=== PATIENT | female | born 1955 | race Caucasian/White ===

== ENCOUNTER 2021-08-14 10:34 | Outpatient (CLI) | payer OTHER, SELFPAY ==
--- NOTE | ~2021-08-14 | MM_ITS ---
EXAMINATION: MM screening [facility] BI w alvarez HISTORY: Screening TECHNIQUE: Craniocaudal and mediolateral oblique 3-D tomosynthesis images were obtained and synthetic 2-D images were generated. CAD analysis was submitted and interpreted. COMPARISON: No prior mammogram is available for comparison at this institution. BREAST PARENCHYMAL COMPOSITION: There are scattered areas of fibroglandular density. FINDINGS: There is no evidence of suspicious mass, calcification, or architectural distortion to sugg est malignancy in either breast. There has been no suspicious interval change. IMPRESSION: 1. No mammographic evidence of malignancy. 2. Recommend routine screening mammography in one year. BI-RADS Category 1: Negative Reviewed, dictated and finalized at location A. 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
== END 2021-08-14 10:35 | disposition home or self-care (01) ==
LOC: ANHIMG 10:36
PROVIDERS: PCP Internal Medicine; Visit Provider Internal Medicine
DX: Z12.31 Encounter for screening mammogram for malignant neoplasm of breast (principal)
CPT/HCPCS: 77063; 77067

== ENCOUNTER 2021-11-27 09:09 | Outpatient (CLI) | payer OTHER, SELFPAY ==
--- NOTE | ~2021-11-27 | US_ITS ---
EXAMINATION: US renal BI DATE: 11/27/2021 10:00 INDICATION: Chronic kidney disease, stage III TECHNIQUE: Multiple grayscale and Doppler ultrasound images of the kidneys were obtained. COMPARISON: None. FINDINGS: The right kidney measures 10.8 x 4.7 x 5.0 cm. The left kidney measures 11.0 x 4.9 x 4.8 cm . There is a 7 mm hypoechoic lesion in the left mid kidney. There also appears to be a 2.8 cm hyperec hoic area abutting the left kidney. The kidneys demonstrate normal parenchymal echogenicity. There is no hydronephrosis. The bladder is not fully distended but normal in appearance. IMPRESSION: 1. Possible left kidney masses. Recommend further evaluation by CT without and with contrast. Reviewed, dictated and finalized at location B.
== END 2021-11-27 09:10 | disposition home or self-care (01) ==
LOC: ANHIMG 09:12
PROVIDERS: PCP Internal Medicine; Visit Provider Internal Medicine Nephrology
DX: N18.32 Chronic kidney disease, stage 3b (principal)
CPT/HCPCS: 76775

== ENCOUNTER 2021-12-28 12:55 | Outpatient (CLI) | payer OTHER, SELFPAY ==
--- NOTE | ~2021-12-28 | MR_ITS ---
EXAMINATION: MR abdomen wo con DATE: 12/28/2021 13:48 INDICATION: Mass or cyst at the kidneys. TECHNIQUE: Magnetic resonance imaging (MRI) of the abdomen was performed without intravenous contrast . Sequences included coronal T2-weighted SS-FSE, coronal and axial FS 2D-FIESTA, axial STIR FSE, axi al T2-weighted SS-FSE, axial T2-weighted FS SS-FSE, axial diffusion-weighted SE, axial dual-echo T1-w eighted FSPGR, and axial and coronal T1-weighted LAVA. Postcontrast axial T1-weighted LAVA images wer e obtained in a time course. Postcontrast coronal T1-weighted LAVA images were obtained. COMPARISON: None. FINDINGS: Heart size is normal. No pericardial or pleural effusion. Liver, gallbladder, spleen, pancreas and bi lateral adrenal glands are normal. Bilateral T2 hyperintense renal cysts the largest at the lower rosaura e of the right kidney measuring 1.4 cm the largest at the lower pole of the left kidney measuring 1.5 cm. There is an additional 2.5 cm exophytic lesion at the lower pole of the left kidney comprised la rgely of T1 hyperintense and saturating macroscopic fat. This corresponds to the 2.8 cm hyperechoic r egion abutting the lower pole of the left kidney on prior ultrasound. No other suspicious renal lesio ns identified. No pathologically enlarged abdominal lymphadenopathy. Visualized portions of the bowel s are unremarkable. Mild lumbar levo scoliosis with severe spondylosis. IMPRESSION: 1. 2.5 similar exophytic macroscopic fat-containing lesion at the lower pole of the left kidney. Diff erential would include angiomyolipoma or fat necrosis such as in the setting of a prior cryoablation. Correlate with clinical/surgical history. Reviewed, dictated and finalized at location A. IMPRESSION: 1. 2.5 similar exophytic macroscopic fat-containing lesion at the lower pole of the left kidney. Differential would include angiomyolipoma or fat necrosis suc h as in the setting of a prior cryoablation. Correlate with clinical/surgical h istory.
== END 2021-12-28 12:56 | disposition home or self-care (01) ==
PROVIDERS: PCP Family Medicine; Visit Provider Internal Medicine Nephrology
DX: N28.1 Cyst of kidney, acquired (principal)
CPT/HCPCS: 74181

== ENCOUNTER 2022-01-08 07:02 | Outpatient (CLI) | payer OTHER, SELFPAY ==
--- NOTE | 2022-01-14 14:25 | WPDHOMESLEEP ---
Sleep Study - Home Unattended Date of Study: 01/08/22 Ordering Provider: Lyle Lancaster DO Interpreting Provider: Deena Rosenbaum DO Home Sleep Study Type: Apnea Link Air Height: 1.57 m Weight: 100.244 kg Body Mass Index: 40.4 Neck Circumference (inches): 17.5 [place]: 12 Reason for Sleep Study Snoring, daytime somnolence, dry mouth at night Sleep History The patient is a 66-year-old female with type 2 diabetes, hypertension, hyperlipidemia, congestive heart failure and kidney disease that had a sleep study ordered by her primary care for evaluation of sleep apnea. The patient is currently retired. The patient denies awakening from sleep short of breath. She denies awakening at night with heartburn, belching or cough. She frequently snores loud enough that others complain. She occasionally has trouble sleeping when she has a cold. She denies waking up gasping for air throughout the night. She denies having breathing problems at night observed by herself or others. She denies sweating excessively at night. She denies having heart palpitations or irregular heartbeats during the night. She occasionally falls asleep during the day. She rarely falls asleep while driving. She denies sleep paralysis, cataplexy and hypnagogic / hypnopompic hallucinations. She denies feeling afraid of going to sleep. He denies having nightmares. She occasionally remembers her dreams. She rarely has thoughts racing through her mind. She denies feeling sad, depressed or anxious. She denies having muscular tension. She denies noticing parts of her body jerk. She denies kicking during the night. He denies having crawling and aching feelings in her legs. She will occasionally get leg cramps throughout the night. She denies grinding her teeth during sleep and awakening with morning jaw pain. She denies being bothered by pain during the day but is occasionally awakened by pain from leg cramps during the night. She denies waking up feeling stiff in the morning. She denies waking up with sore achy muscles. She denies waking up with pain in the neck, spine her other joints. She goes to bed at 11:00 p.m. on both weekdays and weekends. He can fall asleep within 30 minutes. She wakes up 1-2 times throughout the night to urinate. She is able fall asleep within 5-10 minutes. She wakes up between 6 and 7:00 a.m. on both weekdays and weekends. She typically gets 8-9 hours of sleep per night. He will stay in bed for 5-10 minutes after waking up in the morning. She currently lives alone. She does not consume any caffeinated beverages within 2 hours of bedtime. She does not engage in physical exercise before bedtime. She will watch television before falling asleep. She will take naps in the afternoon or the evening and they are refreshing. She drinks 2-3 cups of coffee per day. She denies tobacco, alcohol and recreational drug use. [facility] Past Medical History Medical History CHF (congestive heart failure) Hypertension Kidney disease Type 2 diabetes mellitus Surgical History Surgical History H/O cataract extraction 08/2015 H/O section 01/20/1985 H/O section 03/18/1988 H/O: hysterectomy 08/1998 Family History Family History Father Diabetes mellitus Heart disease Mother , 04/28/2000 Breast cancer Alzheimer's dementia Social History Social History Smoking status: Never smoker Alcohol intake: current Alcohol use details: 1 glass of wine a month Substance use: never Gender identity (if verbalized by the patient): Female Sexual Orientation (if Verbalized by the Patient): Straight or Heterosexual Medications Home Medications Medication Instructions [place]
[2022-01-14 14:44] VITALS: BMI 40.4
== END 2022-01-11 12:56 | disposition home or self-care (01) ==
PROVIDERS: PCP Family Medicine; Visit Provider Family Medicine
DX: G47.33 Obstructive sleep apnea (adult) (pediatric) (principal)
CPT/HCPCS: 95806

== ENCOUNTER 2022-04-25 10:33 | Outpatient (CLI) | payer OTHER, SELFPAY ==
--- NOTE | 2022-05-20 11:24 | WPDSLEEPSTUD ---
Sleep Study Date of Study: 04/25/22 Ordering Provider: Lyle Lancaster DO Interpreting Physician: Deena Rosenbaum DO Sleep Study Type: BiPAP Titration Height: 1.57 m Weight: 100.244 kg Body Mass Index: 40.4 Neck Circumference (inches): 18 [place]: 12 Reason for Sleep Study The patient had a home sleep test on 01/08/2022 that showed an AHI of 59.3. Sleep History The patient is a 67-year-old female with type 2 diabetes, hypertension, hyperlipidemia, congestive heart failure and kidney disease that had a sleep study ordered by her primary care for evaluation of sleep apnea. ? The patient is currently retired.? The patient denies awakening from sleep short of breath.? She denies awakening at night with heartburn, belching or cough.? She frequently snores loud enough that others complain.? She occasionally has trouble sleeping when she has a cold.? She denies waking up gasping for air throughout the night.? She denies having breathing problems at night observed by herself or others.? She denies sweating excessively at night.? She denies having heart palpitations or irregular heartbeats during the night.? She occasionally falls asleep during the day.? She rarely falls asleep while driving.? She denies sleep paralysis, cataplexy and hypnagogic / hypnopompic hallucinations.? She denies feeling afraid of going to sleep.? He denies having nightmares.? She occasionally remembers her dreams.? She rarely has thoughts racing through her mind.? She denies feeling sad, depressed or anxious.? She denies having muscular tension.? She denies noticing parts of her body jerk.? She denies kicking during the night.? He denies having crawling and aching feelings in her legs.? She will occasionally get leg cramps throughout the night.? She denies grinding her teeth during sleep and awakening with morning jaw pain.? She denies being bothered by pain during the day but is occasionally awakened by pain from leg cramps during the night.? She denies waking up feeling stiff in the morning.? She denies waking up with sore achy muscles.? She denies waking up with pain in the neck, spine her other joints.? She goes to bed at 11:00 p.m. on both weekdays and weekends.? He can fall asleep within 30 minutes.? She wakes up 1-2 times throughout the night to urinate.? She is able fall asleep within 5-10 minutes.? She wakes up between 6 and 7:00 a.m. on both weekdays and weekends.? She typically gets 8-9 hours of sleep per night.? He will stay in bed for 5-10 minutes after waking up in the morning.? She currently lives alone.? She does not consume any caffeinated beverages within 2 hours of bedtime.? She does not engage in physical exercise before bedtime.? She will watch television before falling asleep.? She will take naps in the afternoon or the evening and they are refreshing.? She drinks 2-3 cups of coffee per day.? She denies tobacco, alcohol and recreational drug use. [facility] Past Medical History Medical History CHF (congestive heart failure) Hypertension Kidney disease Type 2 diabetes mellitus Surgical History Surgical History H/O cataract extraction 08/2015 H/O section 01/20/1985 H/O section 03/18/1988 H/O: hysterectomy 08/1998 Family History Family History Father Diabetes mellitus Heart disease Mother , 04/28/2000 Breast cancer Alzheimer's dementia Social History Social History Smoking status: Never smoker Alcohol intake: current Alcohol use details: 1 glass of wine a month Substance use: never Gender identity (if verbalized by the patient): Female Sexual Orientation (if Verbalized by the Patient): Straight or Heterosexual Medications Home Medications Medication Instructions Rec
[2022-05-20 22:55] VITALS: BMI 40.4
== END 2022-04-26 06:28 | disposition home or self-care (01) ==
LOC: ANHCSM 10:42
PROVIDERS: PCP Family Medicine; Visit Provider Family Medicine
DX: G47.33 Obstructive sleep apnea (adult) (pediatric) (principal)
CPT/HCPCS: 95811

== ENCOUNTER → 2022-06-27 14:06 | Outpatient (CLI) | payer OTHER, SELFPAY ==
--- NOTE | ~2022-06-27 | US_ITS ---
EXAMINATION: US venous doppler [facility] DATE: 06/27/2022 14:33 INDICATION: Bilateral lower limb edema TECHNIQUE: Powell scale images without and with compression and Doppler images of the bilateral lower e xtremity veins were obtained. COMPARISON: None FINDINGS: The right common femoral vein, profunda femoral vein, femoral vein, popliteal vein, peroneal trunk, p osterior tibial veins, and greater saphenous vein are patent. The left common femoral vein, profunda femoral vein, femoral vein, popliteal vein, peroneal trunk, po sterior tibial veins, and greater saphenous vein are patent. IMPRESSION: 1. Patent bilateral lower extremity veins. No evidence of deep venous thrombosis. Reviewed, dictated and finalized at location B. IMPRESSION: 1. Patent bilateral lower extremity veins. No evidence of deep venous thrombosi s.
== END ==
PROVIDERS: PCP Internal Medicine Nephrology; Visit Provider Internal Medicine Nephrology
DX: R60.0 Localized edema (principal); M79.605 Pain in left leg
CPT/HCPCS: 93970

== ENCOUNTER 2022-09-05 00:18 | Inpatient (IN) | payer OTHER, MEDICARE, SELFPAY ==
[2022-09-05] VITALS (15 sets, daily range): BP systolic 150–189; BP diastolic 52–143; PULSE 50–69; RESP 10–20; TEMP 35.8–37.1; O2SAT 91–100; BMI 34.5
--- NOTE | ~2022-09-05 | XR_ITS ---
AP view of the pelvis and AP and lateral views of the right hip Clinical history: Pain Findings: There is a traumatic intertrochanteric fracture of the proximal right femur, with increased varus angulation major distal fracture fragment. Probable mild comminution. Bilateral hip and SI jayde nt spaces are preserved. Soft tissues are unremarkable. Impression: Intertrochanteric fracture of the proximal right femur, as detailed above. Reviewed, dictated and finalized at location M. OFF SAWYER LOG Impression: Intertrochanteric fracture of the proximal right femur, as detailed above.
--- NOTE | ~2022-09-05 | XR_ITS ---
EXAMINATION: XR surgery orthopedic DATE: 09/05/2022 17:07 INDICATION: Fracture of proximal right femur. TECHNIQUE: 6 intraoperative fluoroscopic views of proximal right femur were obtained. I was not prese nt. Fluoroscopy exposure time was 1 minute 36 seconds. COMPARISON: CT right hip 09/05/2022 FINDINGS: There is a basicervical fracture of proximal right femur in near-anatomic alignment status post open reduction internal fixation with antegrade intramedullary cielo and 2 femoral head/neck screw s. There is mild right hip osteoarthritis. IMPRESSION: 1. Basicervical fracture of proximal right femur status post open reduction internal fixation. 2. Mild right hip osteoarthritis. Reviewed, dictated and finalized at location A. RAM TRAINER IMPRESSION: 1. Basicervical fracture of proximal right femur status post open reduction int ernal fixation. 2. Mild right hip osteoarthritis.
--- NOTE | ~2022-09-05 | CT_ITS ---
EXAMINATION: CT abdomen pelvis wo con, CT hip RT wo con DATE: 09/05/2022 09:19 INDICATION: Renal mass. Right hip fracture. TECHNIQUE: 1. Computed tomography (CT) of the abdomen and pelvis was performed without intravenous contrast. Au tomated exposure control and iterative reconstruction technique were employed. The dose-length produc t was 1398.45 mGy-cm. 2. CT of the right hip was performed without intravenous contrast. Automated exposure control and ite rative reconstruction technique were employed. The dose-length product was 396.47 mGy-cm. COMPARISON: MRI abdomen dated 12/28/2021 FINDINGS: Abdomen and pelvis: Mild dependent atelectasis in bilateral lower lobes. Heart size is normal. No pericardial or pleural effusion. Liver, gallbladder, pancreas and bilateral adrenal glands are normal. Multiple small spleni c calcifications consistent with old granulomatous disease. Again seen is mild bilateral perinephric stranding with a few small low-attenuation cysts in the left kidney the largest measuring 1.3 cm. Aga in seen is an approximately 2.8 cm exophytic mass at the lower pole of the left kidney which is of pr edominantly fat attenuation interspersed with minimal amount of soft tissue density. The margins of t he mass are difficult to distinguish from the surrounding perinephric stranding but best appreciated on the sagittal and coronal reconstructed images. Differential would include angiomyolipoma or fat ne crosis such as in the setting of a prior cryoablation. There is mild colonic diverticulosis with a si gmoid predominance. There is no adjacent inflammatory change to suggest diverticulitis. The appendix is not visualized. No pericecal inflammatory change to suggest acute appendicitis. There are surgica l clips in the pelvis and right lower quadrant of the abdomen. Small amount of gas and a Whitten cathet er in the decompressed bladder. The uterus is not identified and has likely been surgically resected. Mild lumbar levocurvature with severe lumbar and moderate lower thoracic spondylosis. There are brid ging osteophytes at multiple levels in the lower thoracic spine consistent with diffuse idiopathic sk eletal hyperostosis (DISH). There also prominent enthesophytes along the bilateral ischial tuberositi es, iliac crests and greater trochanters also likely related to DISH. Right hip: Basicervical fracture of the proximal right femur with minimal involvement of the medial margin of th e greater trochanter which does not appear to involve any of the footplates of the gluteal and pirifo rmis tendons. There is approximately 30 degree varus angulation and 1.5 cm proximal and medial displa cement. This results in medial impaction of the fracture with the medial side of the proximal fractur e margin situated in the central medullary space of the intertrochanteric femur. There is also approx imately 20 degree external rotation. There is mild comminution with a few small fracture fragments al kiah the main fracture line. Right femoral head remains normally centered in the right acetabulum wher e there is mild osteoarthritis with moderate size marginal osteophytes along the rim of the acetabulu m. IMPRESSION: 1. Displaced, angulated and rotated basicervical fracture of the proximal right femur. 2. 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 Differential would include region of fat necrosis in the setting of prior cryoablation. Correlate with surgical history. Reviewed, dictated and finalized at location A. ER TENDER
--- NOTE | 2022-09-05 00:36 | ED.LOWEXIN ---
HPI - Extremity Injury (Lower) General Chief Complaint: Extremity Injury, Lower Stated Complaint: Hip Pain Time Seen by Provider: 09/05/22 00:19 History of Present Illness HPI Narrative: 67-year-old female history of hypertension, diabetes, congestive heart failure, morbid obesity, hyperlipidemia presents to the emergency room for evaluation of right groin pain. Patient states 3 days ago while walking around in her home she felt a pulling sensation in her right groin. Patient thought that it was strained hip. Patient admits to successfully naproxen for pain relief over the past 3 days. States earlier this evening she felt a pop while walking to the bathroom. Patient states she has been nonweightbearing since hearing the pop. Related Data Home Medications Medication Instructions Recorded Confirmed aspirin 81 mg chewable tablet 81 mg PO DAILY 12/12/20 06/20/22 ferrous sulfate 325 mg (65 mg 325 mg PO DAILY 12/12/20 06/20/22 iron) tablet omega 1-smj-nyy-fish oil 1,000 mg 1 cap PO DAILY 12/17/21 06/20/22 (120 mg-180 mg) capsule (Fish Oil) Allergies Allergy/AdvReac Type Severity Reaction Status Date / Time No Known Allergies Allergy Verified 07/18/22 16:52 Review of Systems Review of Systems: CONSTITUTIONAL: Denies fever, chills, or sweats. EYES: Denies visual changes, redness, or discharge. ENT: Denies rhinorrhea, congestion, sore throat, or otalgia. CARDIOVASCULAR: Denies chest pain, palpitations, or edema. RESPIRATORY: Denies cough or dyspnea. GASTROINTESTINAL: Denies abdominal pain, nausea, vomiting, or diarrhea. GENITOURINARY: Denies dysuria or hematuria. SKIN: Denies rash or itching. MUSCULOSKELETAL: Reports right hip pain NEUROLOGIC: Denies headache, numbness, dizziness, or weakness. PSYCHIATRIC: Denies anxiety or depression. REPLACED BY [facility] Past Medical History Medical History CHF (congestive heart failure) Hypertension Kidney disease Type 2 diabetes mellitus Surgical History Surgical History H/O cataract extraction 08/2015 H/O section 01/20/1985 H/O section 03/18/1988 H/O: hysterectomy 08/1998 Family History Family History Father Diabetes mellitus Heart disease Mother , 04/28/2000 Breast cancer Alzheimer's dementia Social History Social History Smoking status: Never smoker Alcohol intake: current Alcohol use details: 1 glass of wine a month Substance use: never Lack of Transportation: No Lack of Food: Never True Current Housing: I Have Housing Concerned About Future Housing: No Difficulty Paying Gas/Electric Bills: No Difficulty Paying for Meds: No Currently Unemployed: No Education: High School Diploma/GED Difficulty w/ Childcare or Family Care: No Gender identity (if verbalized by the patient): Female Sexual Orientation (if Verbalized by the Patient): Straight or Heterosexual Exam Narrative: GENERAL: Well-appearing, well-nourished, no physical limitations, and in no acute distress. HEAD: Normocephalic, atraumatic. EYES: Conjunctivae normal, PERRLA and EOMI. NECK: Supple. No meningeal signs. No adenopathy or masses. No carotid bruits or JVD CHEST: Clear to auscultation. No respiratory distress. No wheezes rales or rhonchi. HEART: Regular rate and rhythm. No murmur heard. Normal peripheral pulses. EXTREMITIES:right hip: +TTP to inguinal area, no internal rotation or shortening, pain with IR and ER, neurovascular is intact distally. Bounding dorsalis pedis pulse SKIN: Warm, dry, no rash. No noted wounds NEURO: No focal deficits. Alert and oriented x3. MAEW. CN's II-XI intact bilaterally, normal gait PSYCH: Cooperative. Normal mood and affect. Course Course Emergency Course: 0230: Discussed case with
[2022-09-05 01:22] LABS: Basophils Absolute Auto 0.1 K/mm3 (0.0-0.1); Basophils Percent Auto 0.9 % (0.2-1.2); Eosinophils Absolute Auto 0.3 K/mm3 (0-0.3); Eosinophils Percent Auto 2.4 % (0-4.4); Hemoglobin 10.9 g/dL (12.0-15.0); Immature Granulocyte Absolute 0.07 K/mm3 (0.00-0.031); Immature Granulocyte Percent A 0.7 % (0-0.5); Lymphocytes Absolute Auto 2.11 K/mm3 (0.9-3.2); Lymphocytes Percent Auto 20.1 % (18.3-44.2); Mean Corpuscular HGB Conc 32.1 g/dl (32-36); Mean Corpuscular Hemoglobin 32.3 pg (26-34); Mean Corpuscular Volume 100.9 fl (80-100); Mean Platelet Volume 10.8 fl (7.4-10.4); Monocytes Absolute Auto 0.8 K/mm3 (0.1-0.6); Monocytes Percent Auto 7.3 % (2.6-8.5); Neutrophils Absolute Auto 7.2 K/mm3 (1.3-6.7); Neutrophils Percent Auto 68.6 % (45.5-73.1); Platelet Count Result 270 k/mm3 (150-375); Red Blood Count 3.37 M/mm3 (4.2-5.4); Red Cell Distribution Width 12.9 % (11.5-14.5); White Blood Count 10.5 K/mm3 (4.5-10.0)
[2022-09-05 01:32] LABS: Alanine Aminotransferase 27 U/L (6-35); Albumin Level 3.5 g/dL (3.5-5.1); Alkaline Phosphatase 78 U/L (38-126); Anion Gap 5 mmol/L (8-16); Aspartate Amino Transferase 27 U/L (14-36); Bilirubin,Total 0.4 mg/dL (0.2-1.3); Blood Urea Nitrogen 42 mg/dL (7-17); Calcium 8.3 mg/dL (8.4-10.2); Carbon Dioxide 21 mmol/L (22-30); Chloride 110 mmol/L (98-107); Estimated CRCL calculation 42 ml/min; Estimated Glomerular Filt Rate 37; Glucose 281 mg/dL (65-110); Potassium 4.6 mmol/L (3.4-5.0); Sodium 136 mmol/L (137-145)
[2022-09-05 01:41] LABS: Prothrombin Time 12.6 Seconds (11.1-14.7)
[2022-09-05 01:42] LABS: Partial Thromboplastin Time 28.4 SECONDS (22.3-36.8)
[2022-09-05] MEDS: HYDROmorphone HCL INJ (*CRX) 1 MG/ML SYR IV PUSH ×3 (02:39→18:49)
[2022-09-05 02:42] LABS: Add Urine Microscopic? YES; Appearance Urine Clear (Clear); Bilirubin Urine Negative (Negative); Blood Urine Trace-Intact (Negative); Color Urine Light Yellow (Yellow); Glucose Urine UA 2+ mg/dL (Negative); Ketones Urine Negative (Negative); Leukocyte Esterase Ur Negative LEU/UL (Negative); Nitrate Urine Positive (Negative); Protein Urine 3+ mg/dL (Negative); Urobilinogen Urine 0.2 mg/dL (<2.0)
[2022-09-05 02:54] LABS: Bacteria Urine 1+ /hpf; Mucus Urine Rare /lpf; RBC Urine 0-2 /hpf (0-2); Squamous Epithelial Cell Urine Rare /hpf (Few)
[2022-09-05 03:13] LABS: Influenza A QL RT-PCR Negative (Negative); Influenza B QL RT-PCR Negative (Negative); RSV RNA, RT-PCR Negative (Negative); SARS-CoV-2 RNA PCR Negative
--- NOTE | 2022-09-05 05:12 | PC.NURSE ---
This patient, Michaela Christian, was admitted to [facility] Room 311-01. Patient/family oriented to hospital policies and general routines including ID bracelet, bed and alarms, visiting hours, pain management, procedures, bathroom and other care routines, personal items, smoking policy, room service/diet, and visiting hours. Information on how to activate the Rapid Response Team has been discussed. Patient/Family are encouraged to report perceived risks to care and to ask questions if they do not understand what they are told or what they should do.
--- NOTE | 2022-09-05 06:42 | PM.CNOR ---
Assessment and Plan Assessment and plan (1) Closed intertrochanteric fracture of right hip: Qualifiers: Encounter type: initial encounter Fracture alignment: displaced Qualified Code(s): S72.141A - Displaced intertrochanteric fracture of right femur, initial encounter for closed fracture Code(s): S72.141A - Displaced intertrochanteric fracture of right femur, initial encounter for closed fracture Status: Acute Assessment and Plan: New patient evaluation for chief complaint right hip fracture. History, physical exam and radiographs reviewed with the patient. Discussed the condition, nature, etiology and course of natural history with the patient. Treatment options including surgical and nonoperative treatment were reviewed. Risks and benefits of each as well as alternatives reviewed. The patient's questions were answered. Conservative treatment ice, Pain control, mechanical DVT prophylaxis. surgical treatment reviewed. Discussed nonoperative and operative treatment options with the patient. Risks and benefits of each as well as alternatives were reviewed. All of the patient's questions were answered. The risks of surgery reviewed including but not limited to: Neurovascular damage, wound complication, infection, blood clot, pulmonary embolus, stroke, myocardial infarction, and anesthetic risks up to and including . Continued pain and possible dysfunction were explained. Specific risks of the procedure including later recurrence of deformity. No guarantees were offered. If hardware used, discussed risk of failure/ breakage and possible need for removal. If complications occur, the patient understands the need for further treatment, possible further surgery. Patient verbalizes understanding and wishes to proceed. PLAN: Right hip trochanteric nail. Plan to proceed when medically stable (2) Bacteriuria, chronic: Code(s): R82.71 - Bacteriuria Status: Acute Assessment and Plan: Patient received IV ceftriaxone History of Present Illness HPI Consult date: 09/05/22 Requesting physician: Gordon Ayon APRN Chief complaint: Hip Fracture Narrative: 67-year-old woman with injury to right hip several days ago. Pain worse yesterday when getting up from seated position. Presented to emergency room. Found to have right hip fracture. Denies prior problems with the hip. Independent ambulator. Review of Systems Constitutional: Constitutional: Denies fever(s) Eyes: Eyes: Denies blurry vision ENT: Reports Normal hearing present Cardiovascular: Cardiovascular: Denies chest pain and Denies dyspnea Respiratory: Respiratory: Denies dyspnea and Denies wheezing Gastrointestinal: Gastrointestinal: Denies abdominal pain Genitourinary: Genitourinary: Denies urinary urgency Musculoskeletal: Musculoskeletal: Reports as per HPI and Denies numbness Integumentary/Breasts: Skin/Breast: Denies changing lesions and Denies sores Neurologic: Reports Normal hearing present, Denies behavioral changes, Denies confusion, Denies numbness and Denies convulsions Psychiatric: Psychiatric: Denies behavioral changes, Denies confusion and Denies hallucinations Endocrine: Endocrine: Denies heat intolerance Hematologic/Lymphatic: Hematologic/Lymphatic: Denies easy bleeding Allergic/Immunologic: Allergic/Immunologic: Denies wheezing PMFSH Past Medical History Medical History (Updated 09/05/22 @ 06:45 by Scout Jaimes MD) Bacteriuria, chronic CHF (congestive heart failure) Closed intertrochanteric fracture of right hip Hypertension Kidney disease Type 2 diabetes mellitus Surgical History Surgical History H/O cataract extraction 08/2015 H/O section 01/20/1985 H/O section 03/18/1988 H/O: hysterectomy 08/1998 Family History Family History Father
[2022-09-05 10:25] LABS: Glucose Point of Care 228 mg/dl (65-105)
--- NOTE | 2022-09-05 10:32 | PM.IMHP ---
H&P: HPI History of Present Illness Date/Time: 09/05/22 10:32 Chief Complaint: weakness, and hip pain Narrative: Patient is 59-year-old female with a past medical history of hypertension, diabetes, heart failure who presented to the ED for evaluation of weakness and pain. 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 The next day the pain was increasing however she was still able to walk on it and was doing okay. On the she stated that she was having a lot more pain she was able to walk on it however standing up and sitting down was more of a task and challenge. She stated she was going to bed she was coming around the corner and heard a pop and could not put any weight on at that time. Patient then came to the hospital. She denies any chest pain, shortness a breath, nausea, vomiting, diarrhea, constipation, weakness, fatigue, fevers, sweats, chills, lightheadedness, dizziness, falls. Upon arrival to the ED it was noted on the hip x-ray that the patient does have a right femur fracture. Currently her pain is a 8/10. She is resting comfortably in bed. Patient is being admitted to the hospitalist service as an inpatient Review of Systems Review of Systems: All systems reviewed & are unremarkable except as noted in HPI and below PMFSH Past Medical History Medical History Bacteriuria, chronic BMI 40.0-44.9, adult CHF (congestive heart failure) Closed intertrochanteric fracture of right hip Hyperlipidemia LDL goal <100 Hypertension JAMES (obstructive sleep apnea) Type 2 diabetes mellitus Surgical History Surgical History H/O cataract extraction 08/2015 H/O section 01/20/1985 H/O section 03/18/1988 H/O: hysterectomy 08/1998 Family History Family History (Updated 09/05/22 @ 10:38 by ISAAC Harrison) Father Diabetes mellitus Heart disease Acute myocardial infarction Mother , 04/28/2000 Breast cancer Alzheimer's dementia Grandparent Cerebrovascular accident maternal grandfather Acute myocardial infarction Social History Social History Social History: patient this is her spouse Nikolai who will be her surrogate while she is here. Patient currently wishes to be a full code at this time Smoking status: Never smoker Alcohol intake: never Alcohol use details: 1 glass of wine a month Substance use: never Lack of Transportation: No Lack of Food: Never True Current Housing: I Have Housing Concerned About Future Housing: No Difficulty Paying Gas/Electric Bills: No Difficulty Paying for Meds: No Currently Unemployed: No Education: High School Diploma/GED Difficulty w/ Childcare or Family Care: No Gender identity (if verbalized by the patient): Female Sexual Orientation (if Verbalized by the Patient): Straight or Heterosexual Spiritual care concerns: No Meds Home Medications and Allergies Home Medications Medication Instructions Recorded Confirmed Type aspirin 81 mg chewable tablet 81 mg PO DAILY 12/12/20 09/05/22 History ferrous sulfate 325 mg (65 mg 325 mg PO DAILY 12/12/20 09/05/22 History iron) tablet blood sugar diagnostic #400 ea 02/28/21 09/05/22 Rx pen needle, diabetic 32 gauge x #400 ea 02/28/21 09/05/22 Rx 5/32 (BD Ultra-Fine Kaylin Pen Needle) atorvastatin 40 mg tablet 40 mg PO DAILY #90 tabs 10/22/21 09/05/22 Rx furosemide 40 mg tablet 40 mg PO QAM #90 tabs 10/22/21 09/05/22 Rx losartan 100 1 tablet PO DAILY #90 tabs 06/20/22 09/05/22 Rx mg-hydrochlorothiazide 25 mg tablet amlodipine 5 mg tablet 5 mg PO DAILY #90 tabs 06/26/22 09/05/22 Rx insulin glargine 100 unit/mL (3 55 unit subcut HS 09/05/22 09/05/22 History mL) subcutaneous pen ([place]
[2022-09-05] MEDS: FUROSEMIDE 40 MG TABLET PO (11:25)
[2022-09-05] MEDS: LOSARTAN POTASSIUM 100 MG TABLET PO (11:25)
[2022-09-05] MEDS: hydroCHLOROthiazide 25 MG TABLET PO (11:26)
[2022-09-05 12:02] LABS: Glucose Point of Care 177 mg/dl (65-105)
[2022-09-05] MEDS: ACETAMINOPHEN 500 MG TABLET 1000 MG PO (14:19)
[2022-09-05 14:39] LABS: Glucose Point of Care 167 mg/dl (65-105)
[2022-09-05] MEDS: TRANEXAMIC ACID 1,000MG/ISO100 1,000 MG/100 ML BAG 200 MG IVPB (14:40)
--- NOTE | 2022-09-05 14:59 | WPDANESEPPF ---
Anes - Initial Pre Proc Eval Procedure: Operation Date: 09/05/22 19:00 Proposed Procedures p Right Intertrochanteric Nail - Scout Jaimes MD Date/Time: 09/05/22 14:59 Surgeon: Jessy Rodney MD Pre Op Diagnosis: Hip Fracture Patient Data Age: 67 Gender: F Height: 1.7 m Weight: 100 kg Last Vital Signs Temp 36.4 C 09/05/22 05:59 Pulse 53 L 09/05/22 05:59 Resp 14 09/05/22 05:59 BP 167/62 H 09/05/22 05:59 Pulse Ox 96 09/05/22 09:53 O2 Del Method Room Air 09/05/22 09:53 Allergies Allergy/AdvReac Type Severity Reaction Status Date / Time No Known Allergies Allergy Verified 09/05/22 14:16 Home Medications Medication Instructions Recorded Confirmed Type aspirin 81 mg chewable tablet 81 mg PO DAILY 12/12/20 09/05/22 History ferrous sulfate 325 mg (65 mg 325 mg PO DAILY 12/12/20 09/05/22 History iron) tablet blood sugar diagnostic #400 ea 02/28/21 09/05/22 Rx pen needle, diabetic 32 gauge x #400 ea 02/28/21 09/05/22 Rx 5/32 (BD Ultra-Fine Kalyin Pen Needle) atorvastatin 40 mg tablet 40 mg PO DAILY #90 tabs 10/22/21 09/05/22 Rx furosemide 40 mg tablet 40 mg PO QAM #90 tabs 10/22/21 09/05/22 Rx losartan 100 1 tablet PO DAILY #90 tabs 06/20/22 09/05/22 Rx mg-hydrochlorothiazide 25 mg tablet amlodipine 5 mg tablet 5 mg PO DAILY #90 tabs 06/26/22 09/05/22 Rx insulin glargine 100 unit/mL (3 55 unit subcut HS 09/05/22 09/05/22 History mL) subcutaneous pen (Lantus Solostar U-100 Insulin) insulin lispro 100 unit/mL See Rx Instructions .Route .COMPLEX 09/05/22 09/05/22 History subcutaneous pen (Humalog KwikPen (U-100) Insulin) lisinopril 40 mg tablet 40 mg PO DAILY 09/05/22 09/05/22 History metoprolol succinate 100 mg 100 mg PO DAILY 09/05/22 09/05/22 History tablet,extended release 24 hr Laboratory Tests 09/05/22 09/05/22 09/05/22 01:16 01:16 01:16 WBC 10.5 K/mm3 H K/mm3 (4.5-10.0) RBC 3.37 M/mm3 L M/mm3 (4.2-5.4) Hgb 10.9 g/dL L g/dL (12.0-15.0) Hct 34.0 % L % (37.0-47.0) MCV 100.9 fl H fl (80-100) MCH 32.3 pg pg (26-34) MCHC 32.1 g/dl g/dl (32-36) RDW 12.9 % % (11.5-14.5) Plt Count 270 k/mm3 k/mm3 (150-375) MPV 10.8 fl H fl (7.4-10.4) Immature Gran % (Auto) 0.7 % H % (0-0.5) Neut % (Auto) 68.6 % % (45.5-73.1) Lymph % (Auto) 20.1 % % (18.3-44.2) [place] % (Auto) 7.3 % % (2.6-8.5) Eos % (Auto) 2.4 % % (0-4.4) Baso % (Auto) 0.9 % % (0.2-1.2) Lymph # (Auto) 2.11 K/mm3 K/mm3 (0.9-3.2) [place] # (Auto) 0.8 K/mm3 H K/mm3 (0.1-0.6) Eos # (Auto) 0.3 K/mm3 K/mm3 (0-0.3) Baso # (Auto) 0.1 K/mm3 K/mm3 (0.0-0.1) Abs Immat Gran (auto) 0.07 K/mm3 H K/mm3 (0.00-0.031) Absolute Neuts (auto) 7.2 K/mm3 H K/mm3 (1.3-6.7) Absolute Nucleated RBC 0.0 K/mm3 K/mm3 (0.0-0.012) Nucleated RBC % 0.0 % % (0.0-0.2) PT 12.6 Seconds Seconds (11.1-14.7) INR 1.0 APTT 28.4 SECONDS SECONDS (22.3-36.8) Sodium 136 mmol/L L mmol/L (137-145) Potassium 4.6 mmol/L mmol/L (3.4-5.0) Chloride 110 mmol/L H mmol/L (98-107) Carbon Dioxide 21 mmol/L L mmol/L (22-30) Anion Gap 5 mmol/L L mmol/L (8-16) BUN 42 mg/dL H mg/dL (7-17) Creatinine 1.40 mg/dL H mg/dL (0.7-1.0) Estim Creat Clear Calc 42 ml/min ml/min Estimated GFR 37 L (59 - ) Glucose 281 mg/dL H mg/dL (65-110) POC Capillary Glucose Calcium 8.3 mg/dL L mg/dL (8.4-10.2) Total Bilirubin 0.4 mg/dL mg/dL (0.2-1.3) AST 27 U/L U/L (14-36) ALT 27 U/L U/L (6-35) Alkaline Phosphatase 78 U/L U/L (38-126) Total Protein 6.0 g/dL L g/dL (6.3
[2022-09-05] MEDS: LACTATED RINGERS 1,000 ML 30 ML IV CONT (15:09)
--- NOTE | 2022-09-05 15:09 | WPDHPUPDATE1 ---
History and Physical Update Update Date/Time: 09/05/22 15:09 History and Physical has been reviewed, including an updated exam of the patient. There are NO changes in the patient's condition. Risks, benefits, and alternatives have been discussed and questions answered. Patient agrees to proceed with procedure.
[2022-09-05] MEDS: ceFAZolin 2 GM/D5W 50 ML 2 GM/50 ML BAG IVPB (15:46)
[2022-09-05] MEDS: BUPIVACAINE/EPINEPHRINE 0.5% 30 ML VIAL INFILTRATE (16:02)
--- NOTE | 2022-09-05 17:03 | PCRCNOTE ---
Pt. is currently in surgery, spoke with family about bringing in her home CPAP unit or borrowing one of ours. Family states Pt. doesn't wear it every night. Family states will discuss it with the Pt. and let the nurse know what they decide.
--- NOTE | 2022-09-05 17:26 | W.PM.PROC2 ---
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 Presents for operative treatment. Description of Procedure After informed consent the operative extremity was marked in the preoperative holding area. Patient received intravenous antibiotics. The patient was taken to the operative room, placed in the supine position, general anesthesia induced by the anesthesia team, and was placed on a fracture table with longitudinal traction applied to the right leg. The hip fracture was reduced to near anatomic position and verified with image intensification. A time-out was performed confirming the patient, site of the surgery and plan. The right lower extremity was prepped and draped sterilely from the knee to the iliac crest region using a ChloraPrep skin solution. Incision was made just proximal to greater trochanter down to the subcutaneous tissues. Hemostasis controlled with electrocautery. Blunt dissection through the fascia to the tip of the greater trochanter. A starter awl was placed at the tip of the greater trochanter into the medullary canal of the femur. This was checked with image intensification and was in good position. Intramedullary guide cielo positioned. A one-step hand reaming done proximally. Intramedullary canal was reamed with a 12.5 millimeter flexible reamer. Neck angle selected off of preoperative radiographs temp plating. 125 degree 11.0mm X 20cm Nail opened on the back table and assembled. This was then inserted over the guide cielo to the correct depth. Guide cielo removed. Lag screw was then placed with a stab incision over the lateral femur using a 10 blade knife. Blunt dissection down to the lateral side of the bone. Soft tissue protectors placed. Guide pin placed in the center center position of the femoral head and measured. 90 millimeter x 10.0 millimeter lag screw placed to correct depth and verified with image intensification. Traction released from the leg and compression of the fracture performed with the external compression device. Proximal locking screw placed. Distal locking of the nail then performed. Stab incision made lateral distal thigh. Blunt dissection down lateral side of the femur. Soft tissue protector placed. Femur drilled from lateral to medial through the distal nail. Distal femur measured and the appropriate size screw placed. Image intensification confirmed the placement through the locking hole. Final image intensification confirmed reduction of the fracture and placement of the hardware. Wounds then thoroughly irrigated with antibiotic solution. Fascia repaired with 0 Vicryl interrupted suture. Subcutaneous tissue repaired with 00 Vicryl interrupted suture and skin repaired with guillermo. Sterile dressings applied. Patient then awoke from anesthesia, extubated, taken to recovery room stable condition. All sponge, needle and instrument counts correct at the end the case. Implants Arthrex standard trochanteric nail 125 degree angle, 11 mm diameter by 200 mm length. 10 mm x 90 mm lag screw, 5 mm x 36 mm distal locking screw. 75 mm anti rotation screw. Estimated Blood Loss 150 Drains No Packing No Pathology None sent Complications None Condition Stable Disposition PACU
[2022-09-05 17:33] LABS: Glucose Point of Care 163 mg/dl (65-105)
[2022-09-05] MEDS: fentaNYL CITRATE INJ (*CRX) 100 MCG/2 ML VIAL 25 MCG IV PUSH ×4 (17:38→18:07)
[2022-09-05] MEDS: amLODIPine BESYLATE 5 MG TABLET PO (20:31)
[2022-09-05] MEDS: METOPROLOL SUCCINATE EXT REL 100 MG TABCR PO (20:32)
[2022-09-05] MEDS: INSULIN GLARGINE (*BKC) 100 UNITS/ML 25 UNITS SUB-Q (20:32)
[2022-09-05 21:27] LABS: Glucose Point of Care 224 mg/dl (65-105)
[2022-09-06] VITALS (9 sets, daily range): BP systolic 151–190; BP diastolic 41–60; PULSE 50–86; RESP 18; TEMP 36.1–36.4; O2SAT 96–98
[2022-09-06] MEDS: HYDROcodone/acetaminophen (*CRX) 7.5-325 MG TABLET 1 TAB PO ×3 (01:14→19:55)
[2022-09-06 06:54] LABS: Basophils Percent Auto 0.2 % (0.2-1.2); Hematocrit 33.1 % (37.0-47.0); Hemoglobin 10.6 g/dL (12.0-15.0); Immature Granulocyte Absolute 0.05 K/mm3 (0.00-0.031); Immature Granulocyte Percent A 0.4 % (0-0.5); Lymphocytes Absolute Auto 1.15 K/mm3 (0.9-3.2); Lymphocytes Percent Auto 9.6 % (18.3-44.2); Mean Corpuscular Hemoglobin 32.2 pg (26-34); Mean Corpuscular Volume 100.6 fl (80-100); Mean Platelet Volume 11.1 fl (7.4-10.4); Monocytes Absolute Auto 0.9 K/mm3 (0.1-0.6); Monocytes Percent Auto 7.3 % (2.6-8.5); Neutrophils Absolute Auto 9.9 K/mm3 (1.3-6.7); Neutrophils Percent Auto 82.5 % (45.5-73.1); Platelet Count Result 257 k/mm3 (150-375); Red Blood Count 3.29 M/mm3 (4.2-5.4); Red Cell Distribution Width 12.7 % (11.5-14.5)
[2022-09-06 07:05] LABS: Hemoglobin A1C 8.4 % (<5.7)
[2022-09-06 07:06] LABS: Alanine Aminotransferase 26 U/L (6-35); Albumin Level 3.2 g/dL (3.5-5.1); Alkaline Phosphatase 64 U/L (38-126); Anion Gap 5 mmol/L (8-16); Aspartate Amino Transferase 37 U/L (14-36); Bilirubin,Total 0.5 mg/dL (0.2-1.3); Blood Urea Nitrogen 36 mg/dL (7-17); Calcium 8.4 mg/dL (8.4-10.2); Carbon Dioxide 24 mmol/L (22-30); Chloride 107 mmol/L (98-107); Estimated CRCL calculation 44 ml/min; Estimated Glomerular Filt Rate 37; Glucose 279 mg/dL (65-110); Magnesium 1.8 mg/dL (1.6-2.3); Sodium 136 mmol/L (137-145)
[2022-09-06] MEDS: SENNA/DOCUSATE SODIUM TABLET 2 TAB PO ×2 (08:19→17:03)
[2022-09-06] MEDS: FERROUS SULFATE 324 MG TABLET PO (08:19)
[2022-09-06] MEDS: ATORVASTATIN 40 MG TABLET PO (08:20)
[2022-09-06] MEDS: LOSARTAN POTASSIUM 100 MG TABLET PO (08:20)
[2022-09-06] MEDS: FUROSEMIDE 40 MG TABLET PO (08:20)
[2022-09-06] MEDS: FONDAPARINUX SODIUM 2.5 MG/0.5 ML SYRINGE SUB-Q (08:20)
[2022-09-06] MEDS: ASPIRIN 81 MG CHEWABLE TABLET PO (08:20)
[2022-09-06] MEDS: hydroCHLOROthiazide 25 MG TABLET PO (08:20)
[2022-09-06] MEDS: INSULIN ASPART (*BKC) 100 UNITS/ML SUB-Q ×3 (08:27→17:05)
--- NOTE | 2022-09-06 08:38 | PM.PNORT ---
Progress Note: A&P Assessment and Plan (1) Closed intertrochanteric fracture of right hip: Qualifiers: Encounter type: subsequent encounter Fracture alignment: displaced Fracture healing: with routine healing Qualified Code(s): S72.141D - Displaced intertrochanteric fracture of right femur, subsequent encounter for closed fracture with routine healing Code(s): S72.141A - Displaced intertrochanteric fracture of right femur, initial encounter for closed fracture Status: Acute Assessment and Plan: Postoperative day 1 right hip trochanteric nail. Patient awake and alert, appears stable. PT/OT with weight-bearing as tolerated. Wound care regimen. Pain control. DVT prophylaxis with Arixtra. May transition to aspirin at discharge. Patient would like to disposition home when stable. Recommend home health. Subjective Subjective Date/Time Seen: 09/06/22 08:38 Post Op day: 1 Principal diagnosis: Right hip fracture Interval history: Patient resting comfortably. Awake and alert. Less confused today. Oriented to person, place and time. Complains of minimal pain right hip. Exam Const: General: comfortable; No acute distress Resp: Effort & Inspection: normal respiratory effort and no audible wheezes Extrem: Right lower extremity: lower leg ( Negative Homans sign), ankle Details: normal ROM ( dorsiflexion and plantar flexion intact) and foot Details: vascular exam Details: dorsalis pedis pulse present and normal capillary refill, tendon exam Details: active flexion normal and active extension normal and motor-sensory exam Details: light-touch normal Location: in all toes; no edema Left lower extremity: normal to inspection, ankle Details: normal ROM and foot Details: vascular exam Details: dorsalis pedis pulse present and normal capillary refill and motor-sensory exam light-touch normal in all toes; no edema Other: right hip dressing clean dry and intact. Muscles soft. Objective Data Vital Signs Vital Signs: Vital Signs - 24 hr 09/05/22 09:53 09/05/22 14:10 09/05/22 17:13 Temperature 97.5 F L 98.7 F Pulse Rate 50 L 67 Respiratory Rate 18 10 L Blood Pressure 189/52 H 151/62 H Pulse Oximetry 96 98 100 Oxygen Delivery Room Air Room Air Simple Face Mask Oxygen Flow Rate 10 09/05/22 17:25 09/05/22 17:40 09/05/22 17:55 Temperature Pulse Rate 66 67 66 Respiratory Rate 14 12 12 Blood Pressure 185/60 H 178/53 H 165/54 H Pulse Oximetry 100 100 99 Oxygen Delivery Simple Face Mask Simple Face Mask Room Air Oxygen Flow Rate 10 10 09/05/22 18:10 09/05/22 18:23 09/05/22 18:35 Temperature 96.5 F L Pulse Rate 66 57 L 69 Respiratory Rate 12 14 18 Blood Pressure 172/66 H 168/53 H 161/54 H Pulse Oximetry 91 100 99 Oxygen Delivery Room Air Nasal Cannula Oxygen Flow Rate 2 09/05/22 18:50 09/05/22 18:35 09/05/22 20:10 Temperature 98.4 F 97.5 F L Pulse Rate 58 L 65 Respiratory Rate 16 20 Blood Pressure 150/58 H 154/56 H Pulse Oximetry 93 99 97 Oxygen Delivery Nasal Cannula Oxygen Flow Rate 2 09/05/22 20:00 09/06/22 00:01 09/06/22 04:10 Temperature 97.6 F 97.1 F L Pulse Rate 86 78 Respiratory Rate 18 18 Blood Pressure 156/56 H 166/60 H Pulse Oximetry 95 98 98 Oxygen Delivery Nasal Cannula Oxygen Flow Rate 2 09/05/22 21:48 Temperature Pulse Rate Respiratory Rate Blood Pressure Pulse Oximetry 97 Oxygen Delivery Nasal Cannula Oxygen Flow Rate 2 Intake/Output Intake/Output: Intake & Output 09/03/22 09/04/22 09/05/22 09/06/22 23:59 23:59 23:59 23:59 Intake Total 620 450 Output Total 1980 825 Balance -0823 -128 Meds/Results Medications: Active Medications Generic Name Dose Route Start Last Admin Trade Name Jerrica PRN Reason Stop Dose Admin Acetaminophen 650 mg 09/05/22 18:25 Acetaminophen 325 Mg Tablet PO Q6H PRN Mild Pain (1-3) or Fever Hydrocodone Bitart/Acetaminophen 1 tab 09/05/22 18:
[2022-09-06 08:46] LABS: Glucose Point of Care 264 mg/dl (65-105)
--- NOTE | 2022-09-06 09:45 | P.PNIM_ITS ---
Progress Note: A&P Assessment and Plan (1) Closed intertrochanteric fracture of right hip: Qualifiers: Encounter type: initial encounter Fracture alignment: displaced Qualified Code(s): S72.141A - Displaced intertrochanteric fracture of right femur, initial encounter for closed fracture Code(s): S72.141A - Displaced intertrochanteric fracture of right femur, initial encounter for closed fracture Status: Acute Assessment and Plan: * POD 1 * unknown etiology * x-ray and CT both show right by cervical fracture of the femur * orthopedics consulted * surgical repair 09/05/22 * pain medications on board * DVT prophylaxis Arixtra, can transition to aspirin at discharge * PT and OT when appropriate (2) Type 2 diabetes mellitus: Qualifiers: Diabetes mellitus complication status: without complication Diabetes mellitus computer terminal operator insulin use: with computer terminal operator use Qualified Code(s): E11.9 - Type 2 diabetes mellitus without complications; Z79.4 - residential (current) use of insulin Code(s): E11.9 - Type 2 diabetes mellitus without complications Status: Acute Assessment and Plan: * current glucose 279 * continue home Lantus 25 units while she is NPO * insulin sliding scale * A1c in the a.m. * trend glucose * hypoglycemia protocol * Accu-Cheks AC and HS * adjust therapy as indicated (3) Chronic kidney disease, stage 3b: Code(s): N18.32 - Chronic kidney disease, stage 3b Status: Acute Assessment and Plan: * current BUN and creatinine 36/1.40 * baseline appears to be 1.4-1.6 * avoid nephrotoxic medications * seems to be within baseline * continue to trend labs * trend urine output * adjust therapy as indicated (4) CHF (congestive heart failure): Qualifiers: Heart failure chronicity: chronic Heart failure type: unspecified Qualified Code(s): I50.9 - Heart failure, unspecified Code(s): I50.9 - Heart failure, unspecified Status: Acute Assessment and Plan: * chronic diastolic heart failure not in acute exacerbation * echo from 2020 shows an EF 70 75% with grade 2 diastolic dysfunction * trend urine output * daily weights * continue home furosemide 40 mg daily * continue home metoprolol 100 mg daily * stable at this time (5) Hypertension: Qualifiers: Hypertension type: essential hypertension Qualified Code(s): I10 - Essential (primary) hypertension Code(s): I10 - Essential (primary) hypertension Status: Acute Assessment and Plan: * current blood pressure 166/60 * continue home amlodipine, losartan, HCTZ * trend blood pressure * adjust therapy as indicated (6) Morbid (severe) obesity due to excess calories: Code(s): E66.01 - Morbid (severe) obesity due to excess calories Status: Acute Assessment and Plan: * BMI is 34.5 * lifestyle modifications and education * dietitian consult when appropriate Time Spent With Patient Time with patient: Greater than 35 minutes Subjective Date/time seen: 09/06/22944 Interval history: 09/06/22944 Patient was sitting in the chair. Patient stated that she feels okay right now. She denies any chest pain, shortness a breath, nausea, vomiting, diarrhea, constipation, weakness or
--- NOTE | 2022-09-06 09:45 | PM.IMPN ---
Progress Note: A&P Assessment and Plan (1) Closed intertrochanteric fracture of right hip: Qualifiers: Encounter type: initial encounter Fracture alignment: displaced Qualified Code(s): S72.141A - Displaced intertrochanteric fracture of right femur, initial encounter for closed fracture Code(s): S72.141A - Displaced intertrochanteric fracture of right femur, initial encounter for closed fracture Status: Acute Assessment and Plan: POD 1 unknown etiology x-ray and CT both show right by cervical fracture of the femur orthopedics consulted surgical repair 09/05/22 pain medications on board DVT prophylaxis Arixtra, can transition to aspirin at discharge PT and OT when appropriate (2) Type 2 diabetes mellitus: Qualifiers: Diabetes mellitus complication status: without complication Diabetes mellitus lobsterman insulin use: with lobsterman use Qualified Code(s): E11.9 - Type 2 diabetes mellitus without complications; Z79.4 - vermin exterminator (current) use of insulin Code(s): E11.9 - Type 2 diabetes mellitus without complications Status: Acute Assessment and Plan: current glucose 279 continue home Lantus 25 units while she is NPO insulin sliding scale A1c in the a.m. trend glucose hypoglycemia protocol Accu-Cheks AC and HS adjust therapy as indicated (3) Chronic kidney disease, stage 3b: Code(s): N18.32 - Chronic kidney disease, stage 3b Status: Acute Assessment and Plan: current BUN and creatinine 36/1.40 baseline appears to be 1.4-1.6 avoid nephrotoxic medications seems to be within baseline continue to trend labs trend urine output adjust therapy as indicated (4) CHF (congestive heart failure): Qualifiers: Heart failure chronicity: chronic Heart failure type: unspecified Qualified Code(s): I50.9 - Heart failure, unspecified Code(s): I50.9 - Heart failure, unspecified Status: Acute Assessment and Plan: chronic diastolic heart failure not in acute exacerbation echo from 2020 shows an EF 70 75% with grade 2 diastolic dysfunction trend urine output daily weights continue home furosemide 40 mg daily continue home metoprolol 100 mg daily stable at this time (5) Hypertension: Qualifiers: Hypertension type: essential hypertension Qualified Code(s): I10 - Essential (primary) hypertension Code(s): I10 - Essential (primary) hypertension Status: Acute Assessment and Plan: current blood pressure 166/60 continue home amlodipine, losartan, HCTZ trend blood pressure adjust therapy as indicated (6) Morbid (severe) obesity due to excess calories: Code(s): E66.01 - Morbid (severe) obesity due to excess calories Status: Acute Assessment and Plan: BMI is 34.5 lifestyle modifications and education dietitian consult when appropriate Time Spent With Patient Time with patient: Greater than 35 minutes Subjective Date/time seen: 09/06/22944 Interval history: 09/06/22944 Patient was sitting in the chair. Patient stated that she feels okay right now. She denies any chest pain, shortness a breath, nausea, vomiting, diarrhea, constipation, weakness or fatigue. Did talk to her about her blood pressure medicines and did state that she was just started on losartan. talked her about stopping lisinopril for now while on the losartan. Patient seems to be stable at this time and is doing well with therapy. 09/05/22? 10:32 Patient is 59-year-old female with a past medical history of hypertension, diabetes, heart failure who presented to the ED for evaluation of weakness and pain.? 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 The next da
--- NOTE | 2022-09-06 11:08 | WPDANESPN ---
Anes - Prog Note Post-Op Date/Time: 09/06/22 11:08 Cardiovascular status: normal Respiratory status: normal Airway patency: baseline Mental status: baseline Post-Op hydration status: normal Vital Signs: Last Vital Signs Temp 36.1 C L 09/06/22 08:10 Pulse 52 L 09/06/22 08:10 Resp 18 09/06/22 08:10 BP 176/58 H 09/06/22 08:10 Pulse Ox 98 09/06/22 08:20 O2 Del Method Room Air 09/06/22 08:20 O2 Flow Rate 2 09/05/22 21:48 Pain Score (VAS): 11/15 I/O: Intake & Output 09/05/22 09/06/22 09/06/22 23:59 07:59 15:59 Intake Total 420 450 290 Output Total 530 825 Balance -110 -375 290 Laboratory Tests 09/06/22 06:16 09/06/22 06:16 09/05/22 09/05/22 09/05/22 11:53 14:37 17:30 WBC RBC Hgb Hct MCV MCH MCHC RDW Plt Count MPV Immature Gran % (Auto) Neut % (Auto) Lymph % (Auto) Letcher % (Auto) Eos % (Auto) Baso % (Auto) Lymph # (Auto) [place]cher # (Auto) Eos # (Auto) Baso # (Auto) Abs Immat Gran (auto) Absolute Neuts (auto) Absolute Nucleated RBC Nucleated RBC % Sodium Potassium Chloride Carbon Dioxide Anion Gap BUN Creatinine Estim Creat Clear Calc Estimated GFR Glucose POC Capillary Glucose 177 H 167 H 163 H Hemoglobin A1c Calcium Magnesium Total Bilirubin AST ALT Alkaline Phosphatase Total Protein Albumin 09/05/22 09/06/22 09/06/22 20:39 06:16 06:16 WBC 12.0 H RBC 3.29 L Hgb 10.6 L Hct 33.1 L MCV 100.6 H MCH 32.2 MCHC 32.0 RDW 12.7 Plt Count 257 MPV 11.1 H Immature Gran % (Auto) 0.4 Neut % (Auto) 82.5 H Lymph % (Auto) 9.6 L Letcher % (Auto) 7.3 Eos % (Auto) 0.0 Baso % (Auto) 0.2 Lymph # (Auto) 1.15 Letcher # (Auto) 0.9 H Eos # (Auto) 0.0 Baso # (Auto) 0.0 Abs Immat Gran (auto) 0.05 H Absolute Neuts (auto) 9.9 H Absolute Nucleated RBC 0.0 Nucleated RBC % 0.0 Sodium Potassium Chloride Carbon Dioxide Anion Gap BUN Creatinine Estim Creat Clear Calc Estimated GFR Glucose POC Capillary Glucose 224 H Hemoglobin A1c 8.4 H Calcium Magnesium Total Bilirubin AST ALT Alkaline Phosphatase Total Protein Albumin 09/06/22 09/06/22 06:16 08:03 WBC RBC Hgb Hct MCV MCH MCHC RDW Plt Count MPV Immature Gran % (Auto) Neut % (Auto) Lymph % (Auto) Letcher % (Auto) Eos % (Auto) Baso % (Auto) Lymph # (Auto) Letcher # (Auto) Eos # (Auto) Baso # (Auto) Abs Immat Gran (auto) Absolute Neuts (auto) Absolute Nucleated RBC Nucleated RBC % Sodium 136 L Potassium 5.0 Chloride 107 Carbon Dioxide 24 Anion Gap 5 L BUN 36 H Creatinine 1.40 H Estim Creat Clear Calc 44 Estimated GFR 37 L Glucose 279 H POC Capillary Glucose 264 H Hemoglobin A1c Calcium 8.4 Magnesium 1.8 Total Bilirubin 0.5 AST 37 H ALT 26 Alkaline Phosphatase 64 Total Protein 6.0 L Albumin 3.2 L Post-procedural complaints: none Patient Feedback: Patient satisfied with anesthetic care.
[2022-09-06 11:58] LABS: Glucose Point of Care 284 mg/dl (65-105)
[2022-09-06 16:44] LABS: Glucose Point of Care 303 mg/dl (65-105)
[2022-09-06] MEDS: amLODIPine BESYLATE 5 MG TABLET 10 MG PO (17:03)
[2022-09-06] MEDS: METOPROLOL SUCCINATE EXT REL 100 MG TABCR PO (17:06)
[2022-09-06] MEDS: INSULIN GLARGINE (*BKC) 100 UNITS/ML 55 UNITS SUB-Q (20:45)
[2022-09-06 21:16] LABS: Glucose Point of Care 340 mg/dl (65-105)
[2022-09-06] MEDS: hydrALAZINE HCL 20 MG/ML VIAL 10 MG IV PUSH (22:28)
[2022-09-07 05:43] VITALS: BP 189/50; PULSE 71; RESP 20; TEMP 36.3; O2SAT 96
[2022-09-07 07:55] LABS: Basophils Absolute Auto 0.1 K/mm3 (0.0-0.1); Basophils Percent Auto 0.7 % (0.2-1.2); Eosinophils Absolute Auto 0.2 K/mm3 (0-0.3); Eosinophils Percent Auto 1.5 % (0-4.4); Hematocrit 32.7 % (37.0-47.0); Hemoglobin 10.6 g/dL (12.0-15.0); Immature Granulocyte Absolute 0.08 K/mm3 (0.00-0.031); Immature Granulocyte Percent A 0.7 % (0-0.5); Lymphocytes Absolute Auto 1.96 K/mm3 (0.9-3.2); Lymphocytes Percent Auto 15.9 % (18.3-44.2); Mean Corpuscular HGB Conc 32.4 g/dl (32-36); Mean Corpuscular Hemoglobin 32.5 pg (26-34); Mean Corpuscular Volume 100.3 fl (80-100); Mean Platelet Volume 10.7 fl (7.4-10.4); Monocytes Absolute Auto 1.2 K/mm3 (0.1-0.6); Monocytes Percent Auto 9.6 % (2.6-8.5); Neutrophils Absolute Auto 8.8 K/mm3 (1.3-6.7); Neutrophils Percent Auto 71.6 % (45.5-73.1); Platelet Count Result 240 k/mm3 (150-375); Red Blood Count 3.26 M/mm3 (4.2-5.4); Red Cell Distribution Width 12.6 % (11.5-14.5); White Blood Count 12.3 K/mm3 (4.5-10.0)
[2022-09-07 08:01] LABS: Alanine Aminotransferase 19 U/L (6-35); Albumin Level 3.3 g/dL (3.5-5.1); Alkaline Phosphatase 71 U/L (38-126); Anion Gap 3 mmol/L (8-16); Aspartate Amino Transferase 35 U/L (14-36); Bilirubin,Total 0.5 mg/dL (0.2-1.3); Blood Urea Nitrogen 41 mg/dL (7-17); Calcium 8.6 mg/dL (8.4-10.2); Carbon Dioxide 27 mmol/L (22-30); Chloride 103 mmol/L (98-107); Estimated CRCL calculation 41 ml/min; Estimated Glomerular Filt Rate 32; Glucose 220 mg/dL (65-110); Potassium 4.5 mmol/L (3.4-5.0); Sodium 133 mmol/L (137-145)
[2022-09-07 08:27] LABS: Glucose Point of Care 236 mg/dl (65-105)
[2022-09-07] MEDS: FUROSEMIDE 40 MG TABLET PO (09:08)
[2022-09-07] MEDS: ASPIRIN 81 MG CHEWABLE TABLET PO (09:08)
[2022-09-07] MEDS: ATORVASTATIN 40 MG TABLET PO (09:09)
[2022-09-07] MEDS: FERROUS SULFATE 324 MG TABLET PO (09:10)
[2022-09-07] MEDS: hydroCHLOROthiazide 25 MG TABLET PO (09:10)
[2022-09-07] MEDS: LOSARTAN POTASSIUM 100 MG TABLET PO (09:10)
[2022-09-07] MEDS: INSULIN ASPART (*BKC) 100 UNITS/ML SUB-Q ×2 (09:11→12:42)
[2022-09-07] MEDS: ACETAMINOPHEN 325 MG TABLET 650 MG PO (09:13)
[2022-09-07] MEDS: EMPAGLIFLOZIN 25 MG TABLET PO (09:13)
[2022-09-07] MEDS: SENNA/DOCUSATE SODIUM TABLET 2 TAB PO (09:14)
[2022-09-07] MEDS: polyethylene glycoL 3350 17 GM POWD.PACK PO (09:15)
[2022-09-07] MEDS: FONDAPARINUX SODIUM 2.5 MG/0.5 ML SYRINGE SUB-Q (09:15)
--- NOTE | 2022-09-07 09:15 | PM.DS ---
DS: Admitting Diagnosis Discharge Date 09/07/22 0915 Admitting Diagnosis Acute right femur fracture DS: Discharge Diagnosis Discharge Diagnosis (1) Closed intertrochanteric fracture of right hip: Qualifiers: Encounter type: subsequent encounter Fracture alignment: displaced Fracture healing: with routine healing Qualified Code(s): S72.141D - Displaced intertrochanteric fracture of right femur, subsequent encounter for closed fracture with routine healing Code(s): S72.141A - Displaced intertrochanteric fracture of right femur, initial encounter for closed fracture Status: Acute Assessment and Plan: POD 2 unknown etiology x-ray and CT both show right by cervical fracture of the femur orthopedics consulted surgical repair 09/05/22 pain medications on board DVT prophylaxis Arixtra, can transition to aspirin at discharge PT and OT when appropriate (2) Type 2 diabetes mellitus: Qualifiers: Diabetes mellitus complication status: without complication 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 trend glucose hypoglycemia protocol Accu-Cheks AC and HS adjust therapy as indicated (3) Chronic kidney disease, stage 3b: Code(s): N18.32 - Chronic kidney disease, stage 3b Status: Acute Assessment and Plan: current BUN and creatinine 41/1.60 baseline appears to be 1.4-1.6 avoid nephrotoxic medications seems to be within baseline continue to trend labs trend urine output adjust therapy as indicated (4) CHF (congestive heart failure): Qualifiers: Heart failure chronicity: chronic Heart failure type: unspecified Qualified Code(s): I50.9 - Heart failure, unspecified Code(s): I50.9 - Heart failure, unspecified Status: Acute Assessment and Plan: chronic diastolic heart failure not in acute exacerbation echo from 2020 shows an EF 70-75% with grade 2 diastolic dysfunction trend urine output daily weights continue home furosemide 40 mg daily continue home metoprolol 100 mg daily stable at this time (5) Hypertension: Qualifiers: Hypertension type: essential hypertension Qualified Code(s): I10 - Essential (primary) hypertension Code(s): I10 - Essential (primary) hypertension Status: Acute Assessment and Plan: current blood pressure 166/60 continue home amlodipine, losartan, HCTZ trend blood pressure adjust therapy as indicated (6) Morbid (severe) obesity due to excess calories: Code(s): E66.01 - Morbid (severe) obesity due to excess calories Status: Acute Assessment and Plan: BMI is 34.5 lifestyle modifications and education dietitian consult when appropriate DS: Summary Hospital Course Hospital Course: patient is 59-year-old female with a past medical history of hyperlipidemia, iron deficiency anemia, hypertension, diabetes mellitus, CHF who presented to the ED with complaints of weakness and pain on the right hip. Upon arrival x-rays and CTs were performed and showed a cervical fracture of the right femur. Orthopedics was consulted and patient was taken for surgical repair on 09/05/2022. Pain has been controlled with pain medications and currently patient rates her pain a 5/10 with activity. Glucose has been slightly elevated in the 200s but has been consistent. Blood pressure has been slightly elevated however held patient's lisinopril since she is on losartan as well. Educated
--- NOTE | 2022-09-07 09:15 | P.DS_ITS ---
DS: Admitting Diagnosis Discharge Date 09/07/22 0915 Admitting Diagnosis Acute right femur fracture DS: Discharge Diagnosis Discharge Diagnosis (1) Closed intertrochanteric fracture of right hip: Qualifiers: Encounter type: subsequent encounter Fracture alignment: displaced Fracture healing: with routine healing Qualified Code(s): S72.141D - Displaced intertrochanteric fracture of right femur, subsequent encounter for closed fracture with routine healing Code(s): S72.141A - Displaced intertrochanteric fracture of right femur, initial encounter for closed fracture Status: Acute Assessment and Plan: * POD 2 * unknown etiology * x-ray and CT both show right by cervical fracture of the femur * orthopedics consulted * surgical repair 09/05/22 * pain medications on board * DVT prophylaxis Arixtra, can transition to aspirin at discharge * PT and OT when appropriate (2) Type 2 diabetes mellitus: Qualifiers: Diabetes mellitus complication status: without complication 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 * trend glucose * hypoglycemia protocol * Accu-Cheks AC and HS * adjust therapy as indicated (3) Chronic kidney disease, stage 3b: Code(s): N18.32 - Chronic kidney disease, stage 3b Status: Acute Assessment and Plan: * current BUN and creatinine 41/1.60 * baseline appears to be 1.4-1.6 * avoid nephrotoxic medications * seems to be within baseline * continue to trend labs * trend urine output * adjust therapy as indicated (4) CHF (congestive heart failure): Qualifiers: Heart failure chronicity: chronic Heart failure type: unspecified Qualified Code(s): I50.9 - Heart failure, unspecified Code(s): I50.9 - Heart failure, unspecified Status: Acute Assessment and Plan: * chronic diastolic heart failure not in acute exacerbation * echo from 2020 shows an EF 70-75% with grade 2 diastolic dysfunction * trend urine output * daily weights * continue home furosemide 40 mg daily * continue home metoprolol 100 mg daily * stable at this time (5) Hypertension: Qualifiers: Hypertension type: essential hypertension Qualified Code(s): I10 - Essential (primary) hypertension Code(s): I10 - Essential (primary) hypertension Status: Acute Assessment and Plan: * current blood pressure 166/60 * continue home amlodipine, losartan, HCTZ * trend blood pressure * adjust therapy as indicated (6) Morbid (severe) obesity due to excess calories: Code(s): E66.01 - Morbid (severe) obesity due to excess calories Status: Acute Assessment and Plan: * BMI is 34.5 * lifestyle modifications and education * dietitian consult when appropriate DS: Summary Hospital Course Hospital Course: patient is 59-year-old female with a past medical history of hyperlipidemia, iron deficiency anemia, hy
[2022-09-07 10:00] VITALS: BP 164/52
[2022-09-07 11:48] LABS: Glucose Point of Care 212 mg/dl (65-105)
== END 2022-09-07 14:00 | disposition home health service (06) | DRG 481 ==
LOC: ANHED 02:30 → ANH3MEDSUR 03:51
PROVIDERS: Orthopaedic Surgery; Admitting Provider Internal Medicine; Emergency Provider Nurse Practitioner Family; PCP Family Medicine; Visit Provider Nurse Practitioner
PROC: 0QS604Z Reposition Right Upper Femur with Internal Fixation Device, Open Approach (ICD-10-PCS; CPT 27245; principal; 2022-09-05 19:00)
DX: S72.141A Displaced intertrochanteric fracture of right femur, initial encounter for closed fracture (principal); I13.0 Hypertensive heart and chronic kidney disease with heart failure and stage 1 through stage 4 chronic kidney disease, or unspecified chronic kidney disease; I50.32 Chronic diastolic (congestive) heart failure; Z79.4 Long term (current) use of insulin; N18.32 Chronic kidney disease, stage 3b; E11.22 Type 2 diabetes mellitus with diabetic chronic kidney disease; E66.01 Morbid (severe) obesity due to excess calories; Z68.34 Body mass index [BMI] 34.0-34.9, adult; D50.9 Iron deficiency anemia, unspecified; E78.5 Hyperlipidemia, unspecified; G47.33 Obstructive sleep apnea (adult) (pediatric); Z20.822 Contact with and (suspected) exposure to COVID-19; Z79.82 Long term (current) use of aspirin; Z79.899 Other long term (current) drug therapy; Z82.49 Family history of ischemic heart disease and other diseases of the circulatory system; Z83.3 Family history of diabetes mellitus
CPT/HCPCS: 36415; 73502; 73700; 74176; 80053; 81001; 82948; 83036; 83735; 85025; 85610; 85730; 87077; 87086; 87186; 87637; 96365; 96375; 97110; 97116; 97161; 97165; 97530; 97535; 99199; 99285; A9270; C1713; G0378; J0360; J0690; J0696; J1100; J1170; J1652; J1815; J2405; J2704; J3010; J7120

== ENCOUNTER 2022-11-13 08:45 | Outpatient (CLI) | payer OTHER, SELFPAY ==
--- NOTE | ~2022-11-13 | DEXA_ITS ---
Bone Density Report Name: DENNY ROBERTSON Age: 67 Sex: Female Ethnicity: White Date of : 1955 Indication: postmenopausal; screening for osteoporosis; height loss; prior fracture; hysterectomy; Referring Provider: ANNI CAR Study: Bone densitometry was performed. Exam Date: November 13, 2022 Accession number: [id number] Bone Density: Region BMD T-score Z-score Classification AP Spine(L1-L4) 1.529 4.4 6.4 Normal Femoral Neck (Left) 0.764 -0.8 0.9 Normal Total Hip (Left) 1.097 1.3 2.7 Normal World Health Organization criteria for BMD impression classify patients as: Normal (T-score at or above -1.0), Osteopenia (T-score between -1.0 and -2.5), or Osteoporosis (T-score at or below -2.5). 10-year Fracture Risk: FRAX not reported because: All T-scores for Spine Total, Hip Total, Femoral Neck at or above -1.0 Prior hip or vertebral fracture Clinical Information Provided by Patient: Have had a previous hip or vertebral fracture Has had a low trauma fracture Has used the following medications: Vitamin D, Calcium Has the following medical conditions: Hysterectomy Patient maximum height was 65 Menopause Age: 43 No regular weight bearing exercise Does not regularly consume dairy products Drinks caffeinated beverages Onset of menses at age 9 Number of children 2 Impression: The patient has normal bone mass. The patient has risk factors, including: previous fracture. Discussion: INCREASED RISK OF FRACTURE DUE TO HISTORY OF FRACTURE. The patient's previous fracture puts the patient at high risk of a future fracture. In untreated patients, the risk of osteoporotic fracture increases approximately two-fold for each 1.0 SD decrease in T-score. Low bone density is not the only risk factor for fracture; also consider factors such as patient's age, frailty or poor health, risk of falling, risk of injury, previous osteoporotic fracture, family history of osteoporosis, cigarette smoking, low body weight, etc. Not everyone with a low trauma fracture has osteoporosis; osteomalacia and other metabolic bone disorders should also be considered. Patients who have osteoporosis should be evaluated for specific diseases and conditions (secondary causes) that may cause or contribute to bone loss and fracture risk. National Osteoporosis Foundation (NOF) recommends pharmacologic intervention for patients with a prior hip or vertebral fracture regardless of BMD T-score. The patient should follow a healthful lifestyle (good nutrition with adequate calcium and vitamin D, and appropriate weight-bearing exercise). Follow-Up: Consider a repeat BMD and Vertebral Fracture Assessment (VFA) exam in 2 years or sooner if medically necessary, to reassess this patient's status. Reported by: DO on 11/13/2022 9:10:00 AM.
== END 2022-11-13 08:46 | disposition home or self-care (01) ==
PROVIDERS: PCP Family Medicine; Visit Provider Family Medicine
DX: Z13.820 Encounter for screening for osteoporosis (principal); Z78.0 Asymptomatic menopausal state
CPT/HCPCS: 77080

== ENCOUNTER 2022-12-26 08:14 | Outpatient (CLI) | payer OTHER, SELFPAY ==
--- NOTE | ~2022-12-26 | MM_ITS ---
EXAMINATION: MM screening [facility] BI w alvarez HISTORY: Screening mammogram, family history of breast cancer in her mother. TECHNIQUE: Craniocaudal and mediolateral oblique 3-D tomosynthesis images were obtained and synthetic 2-D images were generated. CAD analysis was submitted and interpreted. COMPARISON: 08/14/2021 BREAST PARENCHYMAL COMPOSITION:The breasts are almost entirely fatty FINDINGS: Scattered bilateral benign calcifications are present. No suspicious mass, calcification, o r architectural distortion are identified in either breast to suggest malignancy. There has been no s uspicious interval change. IMPRESSION: No mammographic evidence of malignancy. Recommend routine screening mammography in one year. BI-RADS Category 2: Benign finding(s). Reviewed, dictated and finalized at location M.
== END 2022-12-26 08:15 | disposition home or self-care (01) ==
PROVIDERS: PCP Family Medicine; Visit Provider Family Medicine
DX: Z12.31 Encounter for screening mammogram for malignant neoplasm of breast (principal)
CPT/HCPCS: 77063; 77067

== ENCOUNTER 2023-01-29 15:26 | Outpatient (CLI) | payer OTHER, SELFPAY ==
[2023-01-29 16:13] LABS: Basophils Percent Auto 0.4 % (0.2-1.2); Eosinophils Absolute Auto 0.1 K/mm3 (0-0.3); Eosinophils Percent Auto 0.9 % (0-4.4); Hematocrit 35.4 % (37.0-47.0); Hemoglobin 11.7 g/dL (12.0-15.0); Immature Granulocyte Absolute 0.04 K/mm3 (0.00-0.031); Immature Granulocyte Percent A 0.4 % (0-0.5); Lymphocytes Absolute Auto 0.66 K/mm3 (0.9-3.2); Mean Corpuscular HGB Conc 33.1 g/dl (32-36); Mean Corpuscular Hemoglobin 31.8 pg (26-34); Mean Corpuscular Volume 96.2 fl (80-100); Mean Platelet Volume 11.3 fl (7.4-10.4); Monocytes Absolute Auto 0.8 K/mm3 (0.1-0.6); Monocytes Percent Auto 6.8 % (2.6-8.5); Neutrophils Absolute Auto 9.4 K/mm3 (1.3-6.7); Neutrophils Percent Auto 85.5 % (45.5-73.1); Platelet Count Result 260 k/mm3 (150-375); Red Blood Count 3.68 M/mm3 (4.2-5.4); Red Cell Distribution Width 13.6 % (11.5-14.5)
[2023-01-29 16:56] LABS: Thyroid Stimulating Hormone 0.678 uIU/mL (0.465-4.680)
== END 2023-01-29 15:27 | disposition home or self-care (01) ==
LOC: ANHGOSHLAB 15:27
PROVIDERS: PCP Family Medicine; Visit Provider Nurse Practitioner Family
DX: I50.9 Heart failure, unspecified (principal); Z13.29 Encounter for screening for other suspected endocrine disorder
CPT/HCPCS: 36415; 84443; 85025

== ENCOUNTER 2023-01-30 09:43 | Observation (INO) | payer OTHER, SELFPAY ==
[2023-01-30] VITALS (30 sets, daily range): BP systolic 87–143; BP diastolic 51–62; PULSE 64–84; RESP 14–38; TEMP 36.1–36.2; O2SAT 96–100
--- NOTE | ~2023-01-30 | US_ITS ---
EXAMINATION: US renal BI DATE: 01/30/2023 16:59 INDICATION: Acute on chronic renal failure. TECHNIQUE: Multiple ultrasound grayscale images of the kidneys were obtained. COMPARISON: CT abdomen and pelvis 01/30/2023 FINDINGS: The right kidney measures 12.0 x 6.4 x 5.4 cm. The left kidney measures 11.3 x 5.9 x 5.0 cm. The kidn eys demonstrate normal parenchymal echogenicity. There is no hydronephrosis. The bladder is decompres sed. IMPRESSION: 1. Normal kidney sizes. No hydronephrosis. Reviewed, dictated and finalized at location E.
--- NOTE | ~2023-01-30 | US_ITS ---
US abdomen limited INDICATION: Abdomen pain. Elevated transaminase levels. PROCEDURE: Realtime right upper abdominal ultrasound. COMPARISON: No prior studies for comparison. FINDINGS: The pancreas is normal without focal mass or pancreatic ductal dilation. Liver echotexture is normal without focal mass or intrahepatic biliary dilatation. There is normal directional flow i n the portal vein. The gallbladder is normal without stones, gallbladder wall thickening or pericholecystic fluid. Comm on bile duct measures 5 mm. No sonographic Germain's sign. IMPRESSION: 1: Normal limited abdominal ultrasound. Reviewed, dictated and finalized at location L.
--- NOTE | ~2023-01-30 | CT_ITS ---
Non-contrast CT scan of the Abdomen and Pelvis Clinical indication: Abdominal pain Technique: 2.5 mm axial scans were obtained through the abdomen and pelvis without intravenous or or al contrast. Dose reduction technique was used on this scan by utilizing automated exposure control a nd iterative reconstruction technique. The dose-length product (DLP) was 1100.08 mGy-cm. COMPARISON: 09/05/2022 Findings: Images through the lung bases reveal no abnormalities. There is no evidence of renal or ureteral calculi. The kidneys and the ureters are nondilated. Probab le left lower pole renal angiomyolipoma. The liver, spleen, pancreas, gallbladder, and adrenals appear normal. There is no aortic aneurysm. There is no evidence of bowel obstruction. Tiny fat-containing of focal hernia noted. Images through the pelvis were performed. There is no evidence of ascites or lymphadenopathy. Small a mount of air present in the urinary bladder.. No adnexal mass. No ascites. Impression: Small amount of air in urinary bladder. Correlate for iatrogenic air. No distinct evidence for fistul a identified. Stable left lower pole renal angiomyolipoma. Reviewed, dictated and finalized at location . Impression: Small amount of air in urinary bladder. Correlate for iatrogenic air. No distin ct evidence for fistula identified. Stable left lower pole renal angiomyolipoma.
--- NOTE | 2023-01-30 09:56 | ECG_ITS ---
Measurements Intervals [place] Rate: 73 P: 42 NE: 173 QRS: -9 QRSD: 91 T: 34 QT: 383 QTc: 425 Interpretive Statements SINUS RHYTHM VOLTAGE CRITERIA FOR LVH POOR R WAVE PROGRESSION, ANTERIOR LEADS CONSIDER INFERIOR INFARCT, AGE INDETERMINATE BASELINE ARTIFACT- I, II, III, AVR, AVL, AVF ABNORMAL ECG NO PREVIOUS ECG AVAILABLE FOR COMPARISON Electronically Signed On 01-31-2023 7:55:18 CDT by Ru Horta D.O.
[2023-01-30] MEDS: SODIUM CHLORIDE 0.9% IV 1,000 ML 999 ML IV CONT (10:07)
[2023-01-30 10:13] LABS: Basophils Absolute Auto 0.1 K/mm3 (0.0-0.1); Basophils Percent Auto 0.5 % (0.2-1.2); Eosinophils Percent Auto 0.3 % (0-4.4); Hemoglobin 12.5 g/dL (12.0-15.0); Immature Granulocyte Absolute 0.07 K/mm3 (0.00-0.031); Immature Granulocyte Percent A 0.6 % (0-0.5); Lymphocytes Absolute Auto 0.67 K/mm3 (0.9-3.2); Lymphocytes Percent Auto 5.7 % (18.3-44.2); Mean Corpuscular HGB Conc 32.9 g/dl (32-36); Mean Corpuscular Hemoglobin 31.6 pg (26-34); Mean Corpuscular Volume 96.2 fl (80-100); Mean Platelet Volume 11.1 fl (7.4-10.4); Monocytes Absolute Auto 0.6 K/mm3 (0.1-0.6); Monocytes Percent Auto 5.3 % (2.6-8.5); Neutrophils Absolute Auto 10.4 K/mm3 (1.3-6.7); Neutrophils Percent Auto 87.6 % (45.5-73.1); Platelet Count Result 303 k/mm3 (150-375); Red Blood Count 3.95 M/mm3 (4.2-5.4); Red Cell Distribution Width 13.6 % (11.5-14.5); White Blood Count 11.8 K/mm3 (4.5-10.0)
--- NOTE | 2023-01-30 10:16 | ED.GENADULT ---
HPI - General Adult General Chief complaint: Recheck/Abnormal Lab/Rx Stated complaint: abnormal labs Time Seen by Provider: 01/30/23 09:48 History of Present Illness HPI narrative: 67-year-old female presenting to the ED for evaluation of increased generalized weakness, rigors, subjective fever and elevated creatinine. Patient is a type II diabetic and was recently started on Macrobid for urinary tract infection. Patient was having symptoms of increased urinary frequency. Patient states she is still having symptoms of urinary frequency. Patient did have outpatient labs done yesterday and was found to have an elevated creatinine. Patient states that her blood sugars have been running over 300 and that she has been having increased urination and states she is urinating a lot approximately every hour. Related Data Home Medications Medication Instructions Recorded Confirmed aspirin 81 mg chewable tablet 81 mg PO DAILY 12/12/20 01/30/23 ferrous sulfate 325 mg (65 mg 325 mg PO DAILY 12/12/20 01/30/23 iron) tablet insulin glargine 100 unit/mL (3 55 unit subcut HS 09/05/22 01/30/23 mL) subcutaneous pen (Lantus Solostar U-100 Insulin) insulin lispro 100 unit/mL See Rx Instructions .Route .COMPLEX 09/05/22 01/30/23 subcutaneous pen (Humalog KwikPen (U-100) Insulin) acetaminophen 500 mg capsule 500 mg PO Q6H PRN Mild Pain (Scale 01/30/23 01/30/23 Score 1-4) ascorbic acid (vitamin C) 250 mg 250 mg PO DAILY 01/30/23 01/30/23 chewable tablet Allergies Allergy/AdvReac Type Severity Reaction Status Date / Time No Known Allergies Allergy Verified 01/30/23 09:56 Review of Systems Review of Systems: All systems reviewed & are unremarkable except as noted in HPI and below PMFSH Past Medical History Medical History (Updated 01/30/23 @ 15:44 by Mary Ellen Rodriguez PA-C) Chronic kidney disease, stage 3b Closed intertrochanteric fracture of right hip (08/2022) Diastolic dysfunction Echo in February 2021 showed normal LV systolic function with an EF of 70 75% incident normal diastolic dysfunction grade 2. Hyperlipidemia Hypertension Insulin dependent type 2 diabetes mellitus Obstructive sleep apnea on CPAP Surgical History Surgical History (Updated 01/30/23 @ 15:15 by Mary Ellen Rodriguez PA-C) History of cataract extraction (08/2015) History of section (03/18/88) History of section (01/20/85) History of hysterectomy (08/1998) History of open reduction and internal fixation (ORIF) procedure (09/05/22) Right hip trochanteric nail with hip screw. History of open reduction and internal fixation (ORIF) procedure Repair of right ankle fracture. History of tubal ligation Family History Family History Father Diabetes mellitus Heart disease Acute myocardial infarction Mother , 04/28/2000 Breast cancer Alzheimer's dementia Grandparent Cerebrovascular accident maternal grandfather Acute myocardial infarction Social History Social History (Updated 01/30/23 @ 15:37 by Mary Ellen Rodriguez PA-C) Social History: Surrogate medical decision maker: Nikolai Christian, spouse. Code status: Full code. Smoking status: Never smoker Alcohol intake: current Alcohol use details: 1 glass of wine a month. Substance use: never Lack of Transportation: No Lack of Food: Never True Current Housing: I Have Housing Concerned About Future Housing: No Difficulty Paying Gas/Electric Bills: No Difficulty Paying for Meds: No Currently Unemployed: No Education: High School Diploma/GED Difficulty w/ Childcare or Family Care: No Living arrangements: with family Additional living arrangements comments: Lives with spouse in [place]. They have 2 adult children, a son and daughter. 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 Spiritual care concerns: No
--- NOTE | 2023-01-30 10:18 | PC.NURSE ---
Pt states she was recently prescribed Macrobid 01/23 for a UTI. States she was taking the medication prescribed. States she also is a diabetic and that her sugars have recently been running in the 300s, as well as, urinating every hours.
[2023-01-30 10:25] LABS: Lactic Acid Reflex 1.9 mmol/L (0.7-2.0)
[2023-01-30 10:26] LABS: Alanine Aminotransferase 349 U/L (6-35); Alkaline Phosphatase 413 U/L (38-126); Anion Gap 13 mmol/L (8-16); Aspartate Amino Transferase 180 U/L (14-36); Bilirubin,Total 3.4 mg/dL (0.2-1.3); Blood Urea Nitrogen 49 mg/dL (7-17); Calcium 8.7 mg/dL (8.4-10.2); Carbon Dioxide 25 mmol/L (22-30); Chloride 99 mmol/L (98-107); Estimated CRCL calculation 21 ml/min; Estimated Glomerular Filt Rate 18; Glucose 225 mg/dL (65-110); Potassium 3.5 mmol/L (3.4-5.0); Sodium 137 mmol/L (137-145)
[2023-01-30 10:42] LABS: Influenza A QL RT-PCR Negative (Negative); Influenza B QL RT-PCR Negative (Negative); RSV RNA, RT-PCR Negative (Negative); SARS-CoV-2 RNA PCR Negative (Negative)
[2023-01-30 11:12] LABS: Appearance Urine Turbid (Clear); Bacteria Urine Rare /hpf; Bilirubin Urine 1+ (Negative); Blood Urine 1+ (Negative); Color Urine Dark Yellow (Yellow); Glucose Urine UA 3+ mg/dL (Negative); Granular Casts Urine Present /lpf; Ketones Urine Negative (Negative); Leukocyte Esterase Ur 1+ LEU/UL (Negative); Nitrate Urine Positive (Negative); Protein Urine 3+ mg/dL (Negative); RBC Urine 0-2 /hpf (0-2); Specific Grav Ur 1.019 (1.001-1.035); Squamous Epithelial Cell Urine Moderate /hpf (Few); WBC Clumps Urine Present /HPF; WBC Urine 51-100 /hpf; White Blood Cell Casts Urine Present /lpf
[2023-01-30 11:49] LABS: Add Urine Microscopic? YES
[2023-01-30 14:20] LABS: Creatine Kinase 88 U/L (30-135)
--- NOTE | 2023-01-30 14:48 | PM.IMHP ---
H&P: HPI History of Present Illness Date/Time: 01/30/23 13:30 Chief Complaint: Abnormal lab tests. Narrative: This is a very pleasant 67-year-old female with insulin dependent diabetes, chronic kidney disease, hypertension, hyperlipidemia, diastolic dysfunction, obstructive sleep apnea, and iron deficiency anemia who presented to the emergency department via private vehicle from home for evaluation of abnormal labs. She saw her doctor on 01/23/2023 for a follow-up appointment and mentioned having urinary urgency and frequency for about a week. Urine dip streak was significant for nitrates and leukocyte esterase and she was started on nitrofurantoin pending urine culture (results not available to me at time of this dictation). She has been taking her medications as prescribed but seems to be feeling worse. Starting on Friday he she developed subjective fever, sweats, and rigors which she had every day for 3 or 4 days lasting upwards of 2 hours at a time. She has been fatigued and a lot more than usual. Her oral intake has been poor due to decreased appetite; she denies nausea, vomiting, and diarrhea. She continues to have urgency and frequency; she has not noticed a decrease in urine output. She saw a nurse practitioner at her doctor's office yesterday due to the symptoms and it was thought that she was probably suffering from a viral syndrome. Outpatient labs were drawn and she received a phone call today to come to the emergency department as her creatinine was 3.01, up from 1.67 on labs done a few months ago. Creatinine today is improved but remains elevated from baseline at 2.60 today. Her other labs were significant for a total bilirubin of 3.1, AST 180, ALT 349, alkaline phosphatase 413, CK 88. Urine is turbid with 3+ protein, 3+ glucose, 1+ blood, positive nitrates, 1+ leukocyte esterase, 51 to 100 wbc's, WBC clumps, white blood cell casts, and squamous epithelial cells with rare bacteria. CT of the abdomen/pelvis showed a small amount of air in the urinary bladder likely related to instrumentation and this stable left lower pole renal angiomyolipoma. Abdominal ultrasound showed no significant abnormalities. In the ED she was given a bolus of normal saline and 1 gram of ceftriaxone. She is being admitted in this setting for treatment of UTI and further evaluation of acute kidney injury. Review of Systems Review of Systems: Twelve systems were reviewed. No headache. She denies cold and flu symptoms. No sick contacts. No recent travel. No chest pain shortness a breath. She denies nausea, vomiting, and diarrhea. No hematuria. Glucose has been running high recently. She denies polydipsia and blurry vision. Except as documented, all other systems were reviewed and are negative. [facility] Past Medical History Medical History (Updated 01/30/23 @ 15:44 by Mary Ellen Rodriguez PA-C) Chronic kidney disease, stage 3b Closed intertrochanteric fracture of right hip (08/2022) Diastolic dysfunction Echo in February 2021 showed normal LV systolic function with an EF of 70 75% incident normal diastolic dysfunction grade 2. Hyperlipidemia Hypertension Insulin dependent type 2 diabetes mellitus Obstructive sleep apnea on CPAP Surgical History Surgical History (Updated 01/30/23 @ 15:15 by Mary Ellen Rodriguez PA-C) History of cataract extraction (08/2015) History of section (03/18/88) History of section (01/20/85) History of hysterectomy (08/1998) History of open reduction and internal fixation (ORIF) procedure (09/05/22) Right hip trochanteric nail with hip screw. History of open reduction and internal fixation (ORIF) procedure Repair of right ankle fracture. History of tubal ligation Family History Family History Father Diabetes mellitus Heart disease Acute myocardial infarction Mother , 04/28/2000 Breast cancer Alzheimer's dementia Grandparent Cerebrovascular acc
--- NOTE | 2023-01-30 15:01 | ADMGEN ---
This patient, Michaela Christian, was admitted to [facility] Surg Room 324-01. Patient/family oriented to hospital policies and general routines including ID bracelet, bed and alarms, visiting hours, pain management, procedures, bathroom and other care routines, personal items, smoking policy, room service/diet, and visiting hours. Information on how to activate the Rapid Response Team has been discussed. Patient/Family are encouraged to report perceived risks to care and to ask questions if they do not understand what they are told or what they should do.
[2023-01-30 16:16] LABS: Magnesium 2.3 mg/dL (1.6-2.3); Phosphorus 4.6 mg/dL (2.5-4.5)
[2023-01-30 16:27] LABS: Erythrocyte Sedimentation Rate > 140 mm/hr (0-20)
[2023-01-30 16:29] LABS: CRP 16.7 mg/dL (<1.0)
[2023-01-30 16:46] LABS: Glucose Point of Care 170 mg/dl (65-105)
[2023-01-30 16:52] LABS: Prothrombin Time 13.6 Seconds (11.1-14.7)
[2023-01-30 16:54] LABS: Partial Thromboplastin Time 33.1 SECONDS (22.3-36.8)
[2023-01-30 17:01] LABS: Acetaminophen < 10 ug/mL (10-30)
[2023-01-30] MEDS: SODIUM CHLORIDE 0.9% IV 1,000 ML 100 ML IV CONT (17:19)
[2023-01-30 17:28] LABS: Complement C3 151 mg/dL (88-165)
[2023-01-30 18:06] LABS: Thyroid Stimulating Hormone Reflex 0.352 uIU/mL (0.465-4.68)
[2023-01-30 18:33] LABS: Free T4 Free Thyroxine Reflex 1.66 ng/dL (0.78-2.19)
[2023-01-30 18:56] LABS: Hemoglobin A1C 9.7 % (<5.7)
[2023-01-30 19:16] LABS: Creatinine Urine 113.6 mg/dL; Total Protein Urine Random 189 mg/dL; Ur Ttl Prot Creatinine Ratio 1.66 mg/mg (0-0.20)
[2023-01-30 19:20] LABS: Potassium Urine Random 33.5 meq/L; Sodium Urine Random 26 meq/L
[2023-01-30 19:32] LABS: Glucose Point of Care 289 mg/dl (65-105)
[2023-01-30 19:50] LABS: Eosinophil Urine None Seen % (None Seen); Urine Eos QC 2nd Tech Confirmed
[2023-01-30] MEDS: INSULIN GLARGINE (*BKC) 100 UNITS/ML 55 UNITS SUB-Q (20:01)
[2023-01-30 20:27] LABS: Hepatitis B Surface Antigen Negative (Negative)
[2023-01-30 20:32] LABS: HAV RESULT Negative (Negative); Hepatitis B Core IgM Result Negative (Negative)
[2023-01-30 20:44] LABS: Hepatitis C Virus Antibody Negative (Negative)
[2023-01-30] MEDS: HEPARIN SODIUM 5,000 UNITS/ML VIAL 5000 UNITS SUB-Q (21:37)
[2023-01-31] VITALS (7 sets, daily range): BP systolic 169–200; BP diastolic 58–80; PULSE 54–69; RESP 14–20; TEMP 36.1–36.4; O2SAT 97–99
[2023-01-31] MEDS: SODIUM CHLORIDE 0.9% IV 1,000 ML 100 ML IV CONT (04:16)
--- NOTE | 2023-01-31 05:17 | PCRCNOTE ---
pt refused use of hospital unit; pt stated that she would have her to bring home unit
--- NOTE | 2023-01-31 05:20 | PC.NURSE ---
Patient at approximately 05:00 received an automatic blood pressure of 171/66, did a manual and received a manual blood pressure of 200/[address] Mistry, who put the fluids on hold and received no further orders, charge nurse made aware and will continue to monitor.
[2023-01-31 06:24] LABS: Hematocrit 29.8 % (37.0-47.0); Hemoglobin 9.6 g/dL (12.0-15.0); Mean Corpuscular HGB Conc 32.2 g/dl (32-36); Mean Corpuscular Hemoglobin 31.2 pg (26-34); Mean Corpuscular Volume 96.8 fl (80-100); Mean Platelet Volume 10.8 fl (7.4-10.4); Platelet Count Result 278 k/mm3 (150-375); Red Blood Count 3.08 M/mm3 (4.2-5.4); Red Cell Distribution Width 13.6 % (11.5-14.5)
[2023-01-31 06:34] LABS: Alanine Aminotransferase 201 U/L (6-35); Albumin Level 3.1 g/dL (3.5-5.1); Alkaline Phosphatase 291 U/L (38-126); Anion Gap 8 mmol/L (8-16); Aspartate Amino Transferase 80 U/L (14-36); Bilirubin,Total 1.5 mg/dL (0.2-1.3); Blood Urea Nitrogen 47 mg/dL (7-17); Calcium 8.1 mg/dL (8.4-10.2); Carbon Dioxide 26 mmol/L (22-30); Chloride 105 mmol/L (98-107); Estimated CRCL calculation 23 ml/min; Estimated Glomerular Filt Rate 21; Glucose 142 mg/dL (65-110); Potassium 3.3 mmol/L (3.4-5.0); Sodium 139 mmol/L (137-145)
[2023-01-31] MEDS: METOPROLOL SUCCINATE EXT REL 100 MG TABCR PO (07:01)
[2023-01-31 07:58] LABS: Glucose Point of Care 137 mg/dl (65-105)
[2023-01-31] MEDS: ASCORBIC ACID 250 MG TABLET PO (08:44)
[2023-01-31] MEDS: amLODIPine BESYLATE 5 MG TABLET PO (08:44)
[2023-01-31] MEDS: ASPIRIN 81 MG CHEWABLE TABLET PO (08:44)
[2023-01-31] MEDS: FERROUS SULFATE 324 MG TABLET PO (08:44)
[2023-01-31] MEDS: HEPARIN SODIUM 5,000 UNITS/ML VIAL 5000 UNITS SUB-Q ×2 (08:45→20:25)
[2023-01-31] MEDS: EMPAGLIFLOZIN 25 MG TABLET PO (08:45)
[2023-01-31] MEDS: POTASSIUM CHLORIDE 20 MEQ PACKET (FOR LIQUID) 40 MEQ PO (08:45)
--- NOTE | 2023-01-31 10:33 | PM.CNNEP ---
Assessment and Plan Assessment and plan (1) JAMIA (acute kidney injury): Code(s): N17.9 - Acute kidney failure, unspecified Status: Acute Assessment and Plan: suspect multifactorial etiology: prerenal factors (poor oral intake/volume depletion) relative hypotension (despite known history of HTN) concurrent use of diuretics and ARB therapy prior to admission suspected UTI evaluation to date: renal ultrasound okay urine electrolytes suggest prerenal azotemia urine eosinophils negative CPK normal UA suggestive of UTI agree with IVF hydration as tolerated follow volume status closely since off diuretics and has history of diastolic CHF follow repeat labs and UOP (2) Chronic kidney disease, stage 3b: Code(s): N18.32 - Chronic kidney disease, stage 3b Status: Chronic Assessment and Plan: baseline creatinine seems to run around 1.4 - 1.7mg/dl in the last few years however, her creatinine was up to 2.0mg/dl in October 2022 secondary to hypertension, diabetes, vascular disease, JAMES, and age-related change (3) Urinary tract infection: Code(s): N39.0 - Urinary tract infection, site not specified Status: Acute Assessment and Plan: admission UA highly suggestive (despite outpatient antibiotics) urine culture pending on antibiotics (4) Hypertension: Qualifiers: Hypertension type: essential hypertension Qualified Code(s): I10 - Essential (primary) hypertension Code(s): I10 - Essential (primary) hypertension Status: Acute Assessment and Plan: low on presentation however, creeping back up to hypertensive baseline diuretic and ARB on hold currently due to #1 continue other BP medications use hydralazine PRN (5) Insulin dependent type 2 diabetes mellitus: Code(s): E11.9 - Type 2 diabetes mellitus without complications; Z79.4 - termite helper (current) use of insulin Status: Acute Assessment and Plan: follow accuchecks glycemic control per hospitalists I will continue to follow patient with you while she remains hospitalized and make further recommendations during her hospital course. Thank you for allowing me to participate in care of this patient. History of Present Illness Reason for Consult Consult date: 01/31/23 Reason for consult: acute renal failure (on chronic kidney disease) Chief Complaint Chief complaint: Acute kidney injury, urinary tract infection History of Present Illness Narrative: The patient is a 67-year-old female with a past medical history as outlined below who presented to [facility] Emergency room for further evaluation of abnormal labs. The patient recently saw her primary care physician about a week ago when she was having acute complaints of urinary urgency in association with frequency for about a week. Urine testing in her PCPs office was significant for nitrates as well as leukocyte esterase and hence she was empirically started on Macrobid for treatment of a presumed urinary tract infection. She has been taking this medication as prescribed but reports that she does not feel any better and if anything, has felt worse. She has had subjective fevers, diaphoresis, chills/rigors and fatigue for the last 3-4 days if not longer with some of the episodes of rigors lasting up to 2 hours. She also reports poor oral intake in association with decreased appetite but no overt nausea, vomiting, or diarrhea. Her symptoms of urinary tract infection are still persistent despite outpatient antibiotic therapy as well and she does report a decline in her urine output as well. Given these constellation of symptoms and her clinical deterioration, she went back to her primary care physician's office the day before presentation to the ER and was evaluated by the nurse practitioner. Labs were done and she received a phone call from her primary care physician's office jason
--- NOTE | 2023-01-31 10:33 | P.CONNP_ITS ---
Assessment and Plan Assessment and plan (1) JAMIA (acute kidney injury): Code(s): N17.9 - Acute kidney failure, unspecified Status: Acute Assessment and Plan: * suspect multifactorial etiology: * prerenal factors (poor oral intake/volume depletion) * relative hypotension (despite known history of HTN) * concurrent use of diuretics and ARB therapy prior to admission * suspected UTI * evaluation to date: * renal ultrasound okay * urine electrolytes suggest prerenal azotemia * urine eosinophils negative * CPK normal * UA suggestive of UTI * agree with IVF hydration as tolerated * follow volume status closely since off diuretics and has history of diastolic CHF * follow repeat labs and UOP (2) Chronic kidney disease, stage 3b: Code(s): N18.32 - Chronic kidney disease, stage 3b Status: Chronic Assessment and Plan: * baseline creatinine seems to run around 1.4 - 1.7mg/dl in the last few years * however, her creatinine was up to 2.0mg/dl in October 2022 * secondary to hypertension, diabetes, vascular disease, JAMES, and age-related change (3) Urinary tract infection: Code(s): N39.0 - Urinary tract infection, site not specified Status: Acute Assessment and Plan: * admission UA highly suggestive (despite outpatient antibiotics) * urine culture pending * on antibiotics (4) Hypertension: Qualifiers: Hypertension type: essential hypertension Qualified Code(s): I10 - Essential (primary) hypertension Code(s): I10 - Essential (primary) hypertension Status: Acute Assessment and Plan: * low on presentation * however, creeping back up to hypertensive baseline * diuretic and ARB on hold currently due to #1 * continue other BP medications * use hydralazine PRN (5) Insulin dependent type 2 diabetes mellitus: Code(s): E11.9 - Type 2 diabetes mellitus without complications; 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 Thank you for allowing me to participate in care of this patient. History of Present Illness Reason for Consult Consult date: 01/31/23 Reason for consult: acute renal failure (on chronic kidney disease) Chief Complaint Chief complaint: Acute kidney injury, urinary tract infection History of Present Illness Narrative: The patient is a 67-year-old female with a past medical history as outlined below who presented to [facility] Emergency room for further evaluation of abnormal labs. The patient recently saw her primary care physician about a week ago when she was having acute complaints of urinary urgency in association with frequency for about a week. Urine testing in her PCPs office was significant for nitrates as well as leukocyte esterase and hence she was empirically started on Macrobid for treatment of a presumed urinary tract infection. She has been taking this medication as prescribed but reports that she does not feel any better and if anything, has felt worse. She has had subjective fevers, diaphoresis, chills/rigors and fatigue for the last 3-4 days if not longer with some of the episodes of rigors lasting up to 2 hours. She also reports poor oral intake in association with decreased appetite but no overt nausea, vomiting, or diarrhea. Her symptoms of urinary tract infection are still
[2023-01-31 11:33] LABS: Glucose Point of Care 180 mg/dl (65-105)
--- NOTE | 2023-01-31 15:31 | P.PNIM_ITS ---
Progress Note: A&P Assessment and Plan (1) Acute kidney injury superimposed on chronic kidney disease: Code(s): N17.9 - Acute kidney failure, unspecified; N18.9 - Chronic kidney disease, unspecified Status: Acute Assessment and Plan: Precipitating etiology not entirely clear but likely multifactorial. Baseline creatinine ranges between 1.4 and 1.60. Likely due to a combination of hypovolemia from dehydration given poor oral intake and hypoperfusion from hypotension (BP was 87/62 on arrival to the ED) in addition to ongoing loop diuretic, thiazide diuretic, and ARB use. * UA with 3+ protein, 1+ blood positive nitrates, 1+ bilirubin, 1+ leukocyte esterase, 51-100 wbc's and WBC casts present * Continue IV fluid rehydration with close monitoring of volume status and I/O. * Check renal with normal kidney size and no hydronephrosis * Creatinine kinase ordered (given concomitant transaminitis) * Elevated total protein creatinine ratio. * Nephrology consult is greatly appreciated. (2) Transaminitis: Code(s): R74.01 - Elevation of levels of liver transaminase levels Status: Acute Assessment and Plan: Etiology unclear. Abdominal exam is benign an abdominal CT and ultrasound were unremarkable. * Consider liver induced injury from nitrofurantoin. * hepatitis panel negative * Acetaminophen level normal (3) Urinary tract infection: Code(s): N39.0 - Urinary tract infection, site not specified Status: Acute Assessment and Plan: Urine remains abnormal despite completing a course of nitrofurantoin. * Records requested from urine culture obtained at PCPs office. * Continue ceftriaxone, pending urine culture. * Cultures no growth to date * Adjust antibiotic therapy to culture results. (4) Insulin dependent type 2 diabetes mellitus: Code(s): E11.9 - Type 2 diabetes mellitus without complications; Z79.4 - inset cutter (current) use of insulin Status: Acute Assessment and Plan: Patient reports her glucose has been running high for several weeks. * Hemoglobin was 10 0.1% on labs drawn yesterday! (discussed importance of getting her diabetes under control as she is at risk for further kidney damage). * Continue basal insulin and empagliflozin. * Initiate sliding scale insulin, Accu-Cheks, and hypoglycemic protocol. (5) Hypertension: Qualifiers: Hypertension type: essential hypertension Qualified Code(s): I10 - Essential (primary) hypertension Code(s): I10 - Essential (primary) hypertension Status: Acute Assessment and Plan: Blood pressures were soft on arrival to the ED but have improved with IV fluid bolus. * Hold thiazide and loop diuretic as she appears dry. * Losartan also on hold for now given worsening kidney function. (6) Diastolic dysfunction: Code(s): I51.89 - Other ill-defined heart diseases Status: Acute Assessment and Plan: Echocardiogram assures showed diastolic dysfunction grade 2 with a normal EF of 65 to 70%. * Continue judicious IV fluid rehydration with close monitoring of volume sta tus. (7) Obstructive sleep apnea on CPAP: Code(s): G47.33 - Obstructive sleep apnea (adult) (pediatric); Z99.89 - Dependence on other enabling machines and devices Status: Acute Assessment and Plan: CPAP will be provided for the patient to use while hospitalized. Subjective Date/time seen:
--- NOTE | 2023-01-31 15:31 | PM.IMPN ---
Progress Note: A&P Assessment and Plan (1) Acute kidney injury superimposed on chronic kidney disease: Code(s): N17.9 - Acute kidney failure, unspecified; N18.9 - Chronic kidney disease, unspecified Status: Acute Assessment and Plan: Precipitating etiology not entirely clear but likely multifactorial. Baseline creatinine ranges between 1.4 and 1.60. Likely due to a combination of hypovolemia from dehydration given poor oral intake and hypoperfusion from hypotension (BP was 87/62 on arrival to the ED) in addition to ongoing loop diuretic, thiazide diuretic, and ARB use. UA with 3+ protein, 1+ blood positive nitrates, 1+ bilirubin, 1+ leukocyte esterase, 51-100 wbc's and WBC casts present Continue IV fluid rehydration with close monitoring of volume status and I/O. Check renal with normal kidney size and no hydronephrosis Creatinine kinase ordered (given concomitant transaminitis) Elevated total protein creatinine ratio. Nephrology consult is greatly appreciated. (2) Transaminitis: Code(s): R74.01 - Elevation of levels of liver transaminase levels Status: Acute Assessment and Plan: Etiology unclear. Abdominal exam is benign an abdominal CT and ultrasound were unremarkable. Consider liver induced injury from nitrofurantoin. hepatitis panel negative Acetaminophen level normal (3) Urinary tract infection: Code(s): N39.0 - Urinary tract infection, site not specified Status: Acute Assessment and Plan: Urine remains abnormal despite completing a course of nitrofurantoin. Records requested from urine culture obtained at PCPs office. Continue ceftriaxone, pending urine culture. Cultures no growth to date Adjust antibiotic therapy to culture results. (4) Insulin dependent type 2 diabetes mellitus: Code(s): E11.9 - Type 2 diabetes mellitus without complications; Z79.4 - exterminator helper termite (current) use of insulin Status: Acute Assessment and Plan: Patient reports her glucose has been running high for several weeks. Hemoglobin was 10 0.1% on labs drawn yesterday! (discussed importance of getting her diabetes under control as she is at risk for further kidney damage). Continue basal insulin and empagliflozin. Initiate sliding scale insulin, Accu-Cheks, and hypoglycemic protocol. (5) Hypertension: Qualifiers: Hypertension type: essential hypertension Qualified Code(s): I10 - Essential (primary) hypertension Code(s): I10 - Essential (primary) hypertension Status: Acute Assessment and Plan: Blood pressures were soft on arrival to the ED but have improved with IV fluid bolus. Hold thiazide and loop diuretic as she appears dry. Losartan also on hold for now given worsening kidney function. (6) Diastolic dysfunction: Code(s): I51.89 - Other ill-defined heart diseases Status: Acute Assessment and Plan: Echocardiogram assures showed diastolic dysfunction grade 2 with a normal EF of 65 to 70%. Continue judicious IV fluid rehydration with close monitoring of volume status. (7) Obstructive sleep apnea on CPAP: Code(s): G47.33 - Obstructive sleep apnea (adult) (pediatric); Z99.89 - Dependence on other enabling machines and devices Status: Acute Assessment and Plan: CPAP will be provided for the patient to use while hospitalized. Subjective Date/time seen: 01/31/23 15:31 Interval history: Patient doing well today with sister and at bedside. Patient okay with discussing medical treatment front of them. Patient is emotional due to being septic. I assured patient that her labs and vital signs are much improved in that she no longer meets says protocol. Patient states that she is feeling much better today although she is still fatigued. She denies nausea, vomiting, chest pain, shortness a breath and dysuria. Patient states that
[2023-01-31] MEDS: hydrALAZINE HCL 20 MG/ML VIAL 10 MG IV PUSH (15:58)
[2023-01-31] MEDS: INSULIN ASPART (*BKC) 100 UNITS/ML SUB-Q (16:49)
[2023-01-31 16:54] LABS: Glucose Point of Care 253 mg/dl (65-105)
[2023-01-31 21:15] LABS: Glucose Point of Care 227 mg/dl (65-105)
[2023-01-31] MEDS: INSULIN GLARGINE (*BKC) 100 UNITS/ML 55 UNITS SUB-Q (21:19)
[2023-02-01] MEDS: SODIUM CHLORIDE 0.9% IV 1,000 ML 75 ML IV CONT (05:43)
[2023-02-01 06:00] VITALS: BP 199/67; PULSE 71; RESP 20; TEMP 36.4; O2SAT 96
[2023-02-01] MEDS: hydrALAZINE HCL 20 MG/ML VIAL 10 MG IV PUSH (06:54)
--- NOTE | 2023-02-01 06:57 | PC.NURSE ---
elevated bp recheck in 1 hr, IV push hydralazine given 10 mg for elevated bp this morning
[2023-02-01 07:17] LABS: Basophils Absolute Auto 0.1 K/mm3 (0.0-0.1); Eosinophils Absolute Auto 0.4 K/mm3 (0-0.3); Eosinophils Percent Auto 4.8 % (0-4.4); Hematocrit 31.2 % (37.0-47.0); Hemoglobin 10.1 g/dL (12.0-15.0); Immature Granulocyte Percent A 1.4 % (0-0.5); Lymphocytes Absolute Auto 1.94 K/mm3 (0.9-3.2); Lymphocytes Percent Auto 26.6 % (18.3-44.2); Mean Corpuscular HGB Conc 32.4 g/dl (32-36); Mean Corpuscular Hemoglobin 31.2 pg (26-34); Mean Corpuscular Volume 96.3 fl (80-100); Mean Platelet Volume 11.2 fl (7.4-10.4); Monocytes Absolute Auto 0.6 K/mm3 (0.1-0.6); Monocytes Percent Auto 7.7 % (2.6-8.5); Neutrophils Absolute Auto 4.3 K/mm3 (1.3-6.7); Neutrophils Percent Auto 58.5 % (45.5-73.1); Platelet Count Result 306 k/mm3 (150-375); Red Blood Count 3.24 M/mm3 (4.2-5.4); Red Cell Distribution Width 13.5 % (11.5-14.5); White Blood Count 7.3 K/mm3 (4.5-10.0)
[2023-02-01 07:32] LABS: Alanine Aminotransferase 162 U/L (6-35); Albumin Level 3.1 g/dL (3.5-5.1); Alkaline Phosphatase 336 U/L (38-126); Anion Gap 5 mmol/L (8-16); Aspartate Amino Transferase 68 U/L (14-36); Blood Urea Nitrogen 39 mg/dL (7-17); Calcium 8.5 mg/dL (8.4-10.2); Carbon Dioxide 28 mmol/L (22-30); Chloride 108 mmol/L (98-107); Creatine Kinase 44 U/L (30-135); Estimated CRCL calculation 28 ml/min; Estimated Glomerular Filt Rate 26; Glucose 116 mg/dL (65-110); Magnesium 2.4 mg/dL (1.6-2.3); Potassium 3.9 mmol/L (3.4-5.0); Sodium 141 mmol/L (137-145)
[2023-02-01 07:59] LABS: Glucose Point of Care 114 mg/dl (65-105)
--- NOTE | 2023-02-01 08:00 | P.PNIM_ITS ---
Progress Note: A&P Assessment and Plan (1) Acute kidney injury superimposed on chronic kidney disease: Code(s): N17.9 - Acute kidney failure, unspecified; N18.9 - Chronic kidney disease, unspecified Status: Acute Assessment and Plan: Precipitating etiology not entirely clear but likely multifactorial. Baseline creatinine ranges between 1.4 and 1.60. Likely due to a combination of hypovolemia from dehydration given poor oral intake and hypoperfusion from hypotension (BP was 87/62 on arrival to the ED) in addition to ongoing loop diuretic, thiazide diuretic, and ARB use. * UA with 3+ protein, 1+ blood positive nitrates, 1+ bilirubin, 1+ leukocyte esterase, 51-100 wbc's and WBC casts present * Continue IV fluid rehydration with close monitoring of volume status and I/O. * Check renal with normal kidney size and no hydronephrosis * Creatinine kinase wnl * Elevated total protein creatinine ratio. * Nephrology consult is greatly appreciated. * 02/01 nephrology recommending patient stay one more night to monitor kidneys and BP (2) Transaminitis: Code(s): R74.01 - Elevation of levels of liver transaminase levels Status: Acute Assessment and Plan: Etiology unclear. Abdominal exam is benign an abdominal CT and ultrasound were unremarkable. * Consider liver induced injury from nitrofurantoin. * Hepatitis panel negative * Acetaminophen level normal * LFT's trending down (3) Urinary tract infection: Code(s): N39.0 - Urinary tract infection, site not specified Status: Acute Assessment and Plan: Urine remains abnormal despite completing a course of nitrofurantoin. * Records requested from urine culture obtained at PCPs office. * Cultures positive for e. coli sensitive to ceftriaxone. * Continue ceftriaxone (4) Insulin dependent type 2 diabetes mellitus: Code(s): E11.9 - Type 2 diabetes mellitus without complications; Z79.4 - care home (current) use of insulin Status: Acute Assessment and Plan: Patient reports her glucose has been running high for several weeks. * Hemoglobin was 10 0.1% on labs drawn yesterday! (discussed importance of getting her diabetes under control as she is at risk for further kidney damage). * Continue basal insulin and empagliflozin. * Initiate sliding scale insulin, Accu-Cheks, and hypoglycemic protocol. (5) Hypertension: Qualifiers: Hypertension type: essential hypertension Qualified Code(s): I10 - Essential (primary) hypertension Code(s): I10 - Essential (primary) hypertension Status: Acute Assessment and Plan: Blood pressures were soft on arrival to the ED but have improved with IV fluid bolus. * Hold thiazide and loop diuretic as she appears dry. * Losartan also on hold for now given worsening kidney function. (6) Diastolic dysfunction: Code(s): I51.89 - Other ill-defined heart diseases Status: Acute Assessment and Plan: Echocardiogram assures showed diastolic dysfunction grade 2 with a normal EF of 65 to 70%. * Continue judicious IV fluid rehydration with close monitoring of volume status. (7) Obstructive sleep apnea on CPAP: Code(s): G47.33 - Obstructive sleep apnea (adult) (pediatric); Z99.89 - Dependence on other enabling machines and devices Status: Acute Assessment and Plan: CPAP will be provided for the patient to use while hospitalized. Sub
--- NOTE | 2023-02-01 08:00 | PM.IMPN ---
Progress Note: A&P Assessment and Plan (1) Acute kidney injury superimposed on chronic kidney disease: Code(s): N17.9 - Acute kidney failure, unspecified; N18.9 - Chronic kidney disease, unspecified Status: Acute Assessment and Plan: Precipitating etiology not entirely clear but likely multifactorial. Baseline creatinine ranges between 1.4 and 1.60. Likely due to a combination of hypovolemia from dehydration given poor oral intake and hypoperfusion from hypotension (BP was 87/62 on arrival to the ED) in addition to ongoing loop diuretic, thiazide diuretic, and ARB use. UA with 3+ protein, 1+ blood positive nitrates, 1+ bilirubin, 1+ leukocyte esterase, 51-100 wbc's and WBC casts present Continue IV fluid rehydration with close monitoring of volume status and I/O. Check renal with normal kidney size and no hydronephrosis Creatinine kinase wnl Elevated total protein creatinine ratio. Nephrology consult is greatly appreciated. 02/01 nephrology recommending patient stay one more night to monitor kidneys and BP (2) Transaminitis: Code(s): R74.01 - Elevation of levels of liver transaminase levels Status: Acute Assessment and Plan: Etiology unclear. Abdominal exam is benign an abdominal CT and ultrasound were unremarkable. Consider liver induced injury from nitrofurantoin. Hepatitis panel negative Acetaminophen level normal LFT's trending down (3) Urinary tract infection: Code(s): N39.0 - Urinary tract infection, site not specified Status: Acute Assessment and Plan: Urine remains abnormal despite completing a course of nitrofurantoin. Records requested from urine culture obtained at PCPs office. Cultures positive for e. coli sensitive to ceftriaxone. Continue ceftriaxone (4) Insulin dependent type 2 diabetes mellitus: Code(s): E11.9 - Type 2 diabetes mellitus without complications; Z79.4 - inpatient nursing aide (current) use of insulin Status: Acute Assessment and Plan: Patient reports her glucose has been running high for several weeks. Hemoglobin was 10 0.1% on labs drawn yesterday! (discussed importance of getting her diabetes under control as she is at risk for further kidney damage). Continue basal insulin and empagliflozin. Initiate sliding scale insulin, Accu-Cheks, and hypoglycemic protocol. (5) Hypertension: Qualifiers: Hypertension type: essential hypertension Qualified Code(s): I10 - Essential (primary) hypertension Code(s): I10 - Essential (primary) hypertension Status: Acute Assessment and Plan: Blood pressures were soft on arrival to the ED but have improved with IV fluid bolus. Hold thiazide and loop diuretic as she appears dry. Losartan also on hold for now given worsening kidney function. (6) Diastolic dysfunction: Code(s): I51.89 - Other ill-defined heart diseases Status: Acute Assessment and Plan: Echocardiogram assures showed diastolic dysfunction grade 2 with a normal EF of 65 to 70%. Continue judicious IV fluid rehydration with close monitoring of volume status. (7) Obstructive sleep apnea on CPAP: Code(s): G47.33 - Obstructive sleep apnea (adult) (pediatric); Z99.89 - Dependence on other enabling machines and devices Status: Acute Assessment and Plan: CPAP will be provided for the patient to use while hospitalized. Subjective Date/time seen: 02/01/23 08:00 Interval history: Pt feeling better today. She is urinating well. Denies hematuria, dysuria, nausea, vomiting, body aches and chills. Patients labs continue to improve. Her BP remains elevated. Continue to try and control BP and monitor kidney function. Review of Systems Review of Systems: All systems reviewed & are unremarkable except as noted in HPI and below Exam Narrative: GENERAL: Comfortable, no acute distress HENMT: moist
[2023-02-01 08:07] VITALS: BP 156/62
[2023-02-01 08:23] VITALS: PULSE 55
[2023-02-01] MEDS: METOPROLOL SUCCINATE EXT REL 100 MG TABCR PO (08:23)
[2023-02-01] MEDS: ACETAMINOPHEN 325 MG TABLET 650 MG PO (08:23)
[2023-02-01] MEDS: ASCORBIC ACID 250 MG TABLET PO (08:23)
[2023-02-01] MEDS: ASPIRIN 81 MG CHEWABLE TABLET PO (08:23)
[2023-02-01] MEDS: HEPARIN SODIUM 5,000 UNITS/ML VIAL 5000 UNITS SUB-Q ×2 (08:23→22:04)
[2023-02-01] MEDS: EMPAGLIFLOZIN 25 MG TABLET PO (08:23)
[2023-02-01] MEDS: FERROUS SULFATE 324 MG TABLET PO (08:24)
[2023-02-01 08:50] VITALS: O2SAT 97
[2023-02-01] MEDS: amLODIPine BESYLATE 5 MG TABLET 10 MG PO (09:02)
--- NOTE | 2023-02-01 10:46 | P.PNNP_ITS ---
Progress Note: A&P Assessment and Plan (1) JAMIA (acute kidney injury): Code(s): N17.9 - Acute kidney failure, unspecified Status: Acute Assessment and Plan: * suspect multifactorial etiology: * prerenal factors (poor oral intake/volume depletion) * relative hypotension (despite known history of HTN) * concurrent use of diuretics and ARB therapy prior to admission * UTI * evaluation to date: * renal ultrasound okay * urine electrolytes suggest prerenal azotemia * urine eosinophils negative * CPK normal * UA suggestive of UTI * agree with IVF hydration as tolerated * follow volume status closely since off diuretics and has history of diastolic CHF * follow repeat labs and UOP (2) Chronic kidney disease, stage 3b: Code(s): N18.32 - Chronic kidney disease, stage 3b Status: Chronic Assessment and Plan: * baseline creatinine seems to run around 1.4 - 1.7mg/dl in the last few years * however, her creatinine was up to 2.0mg/dl in October 2022 * secondary to hypertension, diabetes, vascular disease, JAMES, and age-related change (3) Urinary tract infection: Code(s): N39.0 - Urinary tract infection, site not specified Status: Acute Assessment and Plan: * admission UA highly suggestive (despite outpatient antibiotics) * urine culture with E. coli. 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 Subjective Date/time seen: 02/01/23 10:46 Interval history: Follow-up for acute kidney injury on top of chronic kidney disease. She appears to feel significantly better since admission; no further symptoms of dysuria or urinary frequendy; unfortunately, blood pressure control has been suboptimal since admission (and holding diuretics and ARB); at bedside and we discussed the situation. Exam Narrative: General: WD/WN female in NAD Heart: normal S1 and S2; no rub Lungs: clear to auscultation Abdomen: soft, nontender, nondistended, positive bowel sounds Extremities: no cyanosis or clubbing; no edema Skin: warm and dry Objective Data Vital Signs Vital Signs: Vital Signs Temp Pulse Resp BP Pulse Ox O2 Del Method 02/01/23 10:00 97 F L 55 L 16 158/70 H 100 02/01/23 08:00 Room Air 02/01/23 08:50 97 Room Air 02/01/23 08:23 55 L 02/01/23 08:07 156/62 H 02/01/23 06:00 97.6 F 71 20 199/67 H 96 01/31/23 21:49 97.6 F 54 L 20 169/58 H 99 01/31/23 20:00 99 Room Air Intake/Output Intake/Output: Intake & Output 05
--- NOTE | 2023-02-01 10:46 | PM.PNNEP ---
Progress Note: A&P Assessment and Plan (1) JAMIA (acute kidney injury): Code(s): N17.9 - Acute kidney failure, unspecified Status: Acute Assessment and Plan: suspect multifactorial etiology: prerenal factors (poor oral intake/volume depletion) relative hypotension (despite known history of HTN) concurrent use of diuretics and ARB therapy prior to admission UTI evaluation to date: renal ultrasound okay urine electrolytes suggest prerenal azotemia urine eosinophils negative CPK normal UA suggestive of UTI agree with IVF hydration as tolerated follow volume status closely since off diuretics and has history of diastolic CHF follow repeat labs and UOP (2) Chronic kidney disease, stage 3b: Code(s): N18.32 - Chronic kidney disease, stage 3b Status: Chronic Assessment and Plan: baseline creatinine seems to run around 1.4 - 1.7mg/dl in the last few years however, her creatinine was up to 2.0mg/dl in October 2022 secondary to hypertension, diabetes, vascular disease, JAMES, and age-related change (3) Urinary tract infection: Code(s): N39.0 - Urinary tract infection, site not specified Status: Acute Assessment and Plan: admission UA highly suggestive (despite outpatient antibiotics) urine culture with E. coli. on antibiotics (4) Hypertension: Qualifiers: Hypertension type: essential hypertension Qualified Code(s): I10 - Essential (primary) hypertension Code(s): I10 - Essential (primary) hypertension Status: Acute Assessment and Plan: low on presentation however, creeping back up to hypertensive baseline diuretic and ARB on hold currently due to #1 continue other BP medications add tenex qhs use hydralazine PRN (5) Insulin dependent type 2 diabetes mellitus: Code(s): E11.9 - Type 2 diabetes mellitus without complications; Z79.4 - residential (current) use of insulin Status: Acute Assessment and Plan: follow accuchecks glycemic control per hospitalists Will continue to follow. Subjective Date/time seen: 02/01/23 10:46 Interval history: Follow-up for acute kidney injury on top of chronic kidney disease. She appears to feel significantly better since admission; no further symptoms of dysuria or urinary frequendy; unfortunately, blood pressure control has been suboptimal since admission (and holding diuretics and ARB); at bedside and we discussed the situation. Exam Narrative: General: WD/WN female in NAD Heart: normal S1 and S2; no rub Lungs: clear to auscultation Abdomen: soft, nontender, nondistended, positive bowel sounds Extremities: no cyanosis or clubbing; no edema Skin: warm and dry Objective Data Vital Signs Vital Signs: Vital Signs Temp Pulse Resp BP Pulse Ox O2 Del Method 02/01/23 10:00 97 F L 55 L 16 158/70 H 100 02/01/23 08:00 Room Air 02/01/23 08:50 97 Room Air 02/01/23 08:23 55 L 02/01/23 08:07 156/62 H 02/01/23 06:00 97.6 F 71 20 199/67 H 96 01/31/23 21:49 97.6 F 54 L 20 169/58 H 99 01/31/23 20:00 99 Room Air Intake/Output Intake/Output: Intake & Output 01/29/23 01/30/23 01/31/23 02/01/23 23:59 23:59 23:59 23:59 Intake Total 1272 3240 2510 Output Total 200 1450 2150 Balance 1072 1790 360 Meds/Results Medications: Active Medications Generic Name Dose Route Start Last Admin Trade Name Freq PRN Reason Stop Dose Admin Acetaminophen 650 mg 01/30/23 15:15 02/01/23 08:23 Acetaminophen 325 Mg Tablet PO 650 mg Q6H PRN Administration Mild Pain (1-3) or Fever Amlodipine Besylate 10 mg 02/01/23 09:00 02/01/23 09:02 Amlodipine Besylate 5 Mg Tablet PO 10 mg DAILY SONJA Administration Ascorbic Acid 250 mg 01/31/23 09:00 02/01/23 08:23 Ascorbic Acid 250 Mg Tablet PO 250 mg DAILY SONJA Administration Aspirin 81 m
[2023-02-01 12:16] LABS: Glucose Point of Care 170 mg/dl (65-105)
[2023-02-01 14:00] VITALS: BP 158/70; PULSE 55; RESP 16; TEMP 36.1; O2SAT 100
[2023-02-01 16:51] LABS: Glucose Point of Care 244 mg/dl (65-105)
[2023-02-01] MEDS: INSULIN ASPART (*BKC) 100 UNITS/ML SUB-Q (17:09)
[2023-02-01 20:00] LABS: Glucose Point of Care 301 mg/dl (65-105)
[2023-02-01 21:21] VITALS: BP 174/70; PULSE 56; RESP 20; TEMP 36.6; O2SAT 99
[2023-02-01] MEDS: guanFACINE HCL 1 MG TABLET 2 MG PO (22:03)
[2023-02-01] MEDS: INSULIN GLARGINE (*BKC) 100 UNITS/ML 55 UNITS SUB-Q (22:04)
[2023-02-02] MEDS: SODIUM CHLORIDE 0.9% IV 1,000 ML 75 ML IV CONT (00:12)
[2023-02-02] MEDS: hydrALAZINE HCL 20 MG/ML VIAL 10 MG IV PUSH (03:59)
[2023-02-02 06:00] VITALS: BP 175/61; PULSE 66; RESP 20; TEMP 36.4; O2SAT 99
[2023-02-02 06:42] LABS: Basophils Absolute Auto 0.1 K/mm3 (0.0-0.1); Basophils Percent Auto 1.2 % (0.2-1.2); Eosinophils Absolute Auto 0.3 K/mm3 (0-0.3); Eosinophils Percent Auto 3.7 % (0-4.4); Hematocrit 32.4 % (37.0-47.0); Hemoglobin 10.4 g/dL (12.0-15.0); Immature Granulocyte Absolute 0.15 K/mm3 (0.00-0.031); Immature Granulocyte Percent A 1.9 % (0-0.5); Lymphocytes Absolute Auto 2.65 K/mm3 (0.9-3.2); Lymphocytes Percent Auto 32.8 % (18.3-44.2); Mean Corpuscular HGB Conc 32.1 g/dl (32-36); Mean Corpuscular Hemoglobin 30.9 pg (26-34); Mean Corpuscular Volume 96.1 fl (80-100); Mean Platelet Volume 10.6 fl (7.4-10.4); Monocytes Absolute Auto 0.6 K/mm3 (0.1-0.6); Monocytes Percent Auto 7.2 % (2.6-8.5); Neutrophils Absolute Auto 4.3 K/mm3 (1.3-6.7); Neutrophils Percent Auto 53.2 % (45.5-73.1); Platelet Count Result 359 k/mm3 (150-375); Red Blood Count 3.37 M/mm3 (4.2-5.4); Red Cell Distribution Width 13.9 % (11.5-14.5); White Blood Count 8.1 K/mm3 (4.5-10.0)
[2023-02-02 07:11] LABS: Alanine Aminotransferase 148 U/L (6-35); Albumin Level 3.2 g/dL (3.5-5.1); Alkaline Phosphatase 354 U/L (38-126); Anion Gap 5 mmol/L (8-16); Aspartate Amino Transferase 83 U/L (14-36); Bilirubin,Total 0.9 mg/dL (0.2-1.3); Blood Urea Nitrogen 34 mg/dL (7-17); Calcium 8.5 mg/dL (8.4-10.2); Carbon Dioxide 25 mmol/L (22-30); Chloride 110 mmol/L (98-107); Estimated CRCL calculation 33 ml/min; Estimated Glomerular Filt Rate 32; Glucose 130 mg/dL (65-110); Sodium 140 mmol/L (137-145)
[2023-02-02 07:57] LABS: Glucose Point of Care 102 mg/dl (65-105)
[2023-02-02 08:23] VITALS: PULSE 77
[2023-02-02] MEDS: METOPROLOL SUCCINATE EXT REL 100 MG TABCR PO (08:23)
[2023-02-02] MEDS: HEPARIN SODIUM 5,000 UNITS/ML VIAL 5000 UNITS SUB-Q (08:23)
[2023-02-02] MEDS: EMPAGLIFLOZIN 25 MG TABLET PO (08:23)
[2023-02-02] MEDS: FERROUS SULFATE 324 MG TABLET PO (08:23)
[2023-02-02] MEDS: ASPIRIN 81 MG CHEWABLE TABLET PO (08:23)
[2023-02-02] MEDS: ASCORBIC ACID 250 MG TABLET PO (08:23)
[2023-02-02] MEDS: amLODIPine BESYLATE 5 MG TABLET 10 MG PO (08:23)
--- NOTE | 2023-02-02 10:45 | P.PNNP_ITS ---
Progress Note: A&P Assessment and Plan (1) JAMIA (acute kidney injury): Code(s): N17.9 - Acute kidney failure, unspecified Status: Acute Assessment and Plan: * back to baseline * suspect multifactorial etiology: * prerenal factors (poor oral intake/volume depletion) * relative hypotension (despite known history of HTN) * concurrent use of diuretics and ARB therapy prior to admission * UTI * evaluation to date: * renal ultrasound okay * urine electrolytes suggest prerenal azotemia * urine eosinophils negative * CPK normal * UA suggestive of UTI * agree with IVF hydration as tolerated * follow volume status closely since off diuretics and has history of diastolic CHF * follow repeat labs and UOP (2) Chronic kidney disease, stage 3b: Code(s): N18.32 - Chronic kidney disease, stage 3b Status: Chronic Assessment and Plan: * baseline creatinine seems to run around 1.4 - 1.7mg/dl in the last few years * however, her creatinine was up to 2.0mg/dl in October 2022 * secondary to hypertension, diabetes, vascular disease, JAMES, and age-related change (3) Urinary tract infection: Code(s): N39.0 - Urinary tract infection, site not specified Status: Acute Assessment and Plan: * admission UA highly suggestive (despite outpatient antibiotics) * urine culture with E. coli. * on antibiotics (4) Hypertension: Qualifiers: Hypertension type: essential hypertension Qualified Code(s): I10 - Essential (primary) hypertension Code(s): I10 - Essential (primary) hypertension Status: Acute Assessment and Plan: * low on presentation * however, creeping back up to hypertensive baseline * diuretic and ARB on hold currently due to #1 * continue other BP medications * would not be opposed to restarting ARB + HTCZ since eating/drinking well again (5) Insulin dependent type 2 diabetes mellitus: Code(s): E11.9 - Type 2 diabetes mellitus without complications; Z79.4 - [facility] (current) use of insulin Status: Acute Assessment and Plan: * follow accuchecks * glycemic control per hospitalists Will continue to follow. Subjective Date/time seen: 02/02/23 10:45 Interval history: Follow-up for acute kidney injury on top of chronic kidney disease. Continues to feel better in general, renal function back to baseline although BP still fluctuating despite trial dose of tenex yesterday; no apparent distress noted; no issues/events overnight or earlier this morning. Exam Narrative: General: WD/WN female in NAD Heart: normal S1 and S2; no rub Lungs: clear to auscultation Abdomen: soft, nontender, nondistended, positive bowel sounds Extremities: no cyanosis or clubbing; no edema Skin: warm and intact Objective Data Vital Signs Vital Signs: Vital Signs Temp Pulse Resp BP Pulse Ox O2 Del Method 02/02/23 08:00 Room Air 02/02/23 08:23 77 02/02/23 06:00 97.6 F 66 20 175/61 H 99 02/01/23 21:21 97.9 F 56 L 20 174/70 H 99 02/01/23 14:00 97 F L 55 L 16 158/70 H 100 Intake/Output Intake/Output: Intake & Output 01/30/23 01/31/23 02/01/23 02/02/23 23:59 23:59 23:59 23:59 Intake Total 1272 3240 3990 1280 Ou
--- NOTE | 2023-02-02 10:45 | PM.PNNEP ---
Progress Note: A&P Assessment and Plan (1) JAMIA (acute kidney injury): Code(s): N17.9 - Acute kidney failure, unspecified Status: Acute Assessment and Plan: back to baseline suspect multifactorial etiology: prerenal factors (poor oral intake/volume depletion) relative hypotension (despite known history of HTN) concurrent use of diuretics and ARB therapy prior to admission UTI evaluation to date: renal ultrasound okay urine electrolytes suggest prerenal azotemia urine eosinophils negative CPK normal UA suggestive of UTI agree with IVF hydration as tolerated follow volume status closely since off diuretics and has history of diastolic CHF follow repeat labs and UOP (2) Chronic kidney disease, stage 3b: Code(s): N18.32 - Chronic kidney disease, stage 3b Status: Chronic Assessment and Plan: baseline creatinine seems to run around 1.4 - 1.7mg/dl in the last few years however, her creatinine was up to 2.0mg/dl in October 2022 secondary to hypertension, diabetes, vascular disease, JAMES, and age-related change (3) Urinary tract infection: Code(s): N39.0 - Urinary tract infection, site not specified Status: Acute Assessment and Plan: admission UA highly suggestive (despite outpatient antibiotics) urine culture with E. coli. 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 Subjective Date/time seen: 02/02/23 10:45 Interval history: Follow-up for acute kidney injury on top of chronic kidney disease. Continues to feel better in general, renal function back to baseline although BP still fluctuating despite trial dose of tenex yesterday; no apparent distress noted; no issues/events overnight or earlier this morning. Exam Narrative: General: WD/WN female in NAD Heart: normal S1 and S2; no rub Lungs: clear to auscultation Abdomen: soft, nontender, nondistended, positive bowel sounds Extremities: no cyanosis or clubbing; no edema Skin: warm and intact Objective Data Vital Signs Vital Signs: Vital Signs Temp Pulse Resp BP Pulse Ox O2 Del Method 02/02/23 08:00 Room Air 02/02/23 08:23 77 02/02/23 06:00 97.6 F 66 20 175/61 H 99 02/01/23 21:21 97.9 F 56 L 20 174/70 H 99 02/01/23 14:00 97 F L 55 L 16 158/70 H 100 Intake/Output Intake/Output: Intake & Output 01/30/23 01/31/23 02/01/23 02/02/23 23:59 23:59 23:59 23:59 Intake Total 1272 3240 3990 1280 Output Total 200 1450 2700 1200 Balance 1072 1790 1290 80 Meds/Results Radiology Results: ITS Impressions Abdomen Ultrasound 01/30/23 11:41 IMPRESSION: 1: Normal limited abdominal ultrasound. Abdomen/Pelvis CT 01/30/23 12:05 Impression: Small amount of air in urinary bladder. Correlate for iatrogenic air. No distinct evidence for fistula identified. Stable left lower pole renal angiomyolipoma. Renal Ultrasound 01/30/23 16:59 IMPRESSION: 1. Normal kidney sizes. No hydronephrosis. Labs Labs: Laboratory Tests 02/02/23 06:09 02/02/23 06:09 Calcium 8.5 Total Bilirubin 0.9 AST 83 H ALT 148 H Alkaline Phosphatase 354 H Total
--- NOTE | 2023-02-02 10:51 | P.DS_ITS ---
DS: Admitting Diagnosis Discharge Date 02/02/23 Admitting Diagnosis UTI DS: Discharge Diagnosis Discharge Diagnosis (1) Acute kidney injury superimposed on chronic kidney disease: Code(s): N17.9 - Acute kidney failure, unspecified; N18.9 - Chronic kidney disease, unspecified Status: Acute Assessment and Plan: Precipitating etiology not entirely clear but likely multifactorial. Baseline creatinine ranges between 1.4 and 1.60. Likely due to a combination of hypovolemia from dehydration given poor oral intake and hypoperfusion from hypotension (BP was 87/62 on arrival to the ED) in addition to ongoing loop diuretic, thiazide diuretic, and ARB use. * UA with 3+ protein, 1+ blood positive nitrates, 1+ bilirubin, 1+ leukocyte esterase, 51-100 wbc's and WBC casts present * Continue IV fluid rehydration with close monitoring of volume status and I/O. * Check renal with normal kidney size and no hydronephrosis * Creatinine kinase wnl * Elevated total protein creatinine ratio. * Nephrology consult is greatly appreciated. * 02/01 nephrology recommending patient stay one more night to monitor kidneys and BP (2) Transaminitis: Code(s): R74.01 - Elevation of levels of liver transaminase levels Status: Acute Assessment and Plan: Etiology unclear. Abdominal exam is benign an abdominal CT and ultrasound were unremarkable. * Consider liver induced injury from nitrofurantoin. * Hepatitis panel negative * Acetaminophen level normal * LFT's trending down (3) Urinary tract infection: Code(s): N39.0 - Urinary tract infection, site not specified Status: Acute Assessment and Plan: Urine remains abnormal despite completing a course of nitrofurantoin. * Records requested from urine culture obtained at PCPs office. * Cultures positive for e. coli sensitive to ceftriaxone. * Continue ceftriaxone (4) Insulin dependent type 2 diabetes mellitus: Code(s): E11.9 - Type 2 diabetes mellitus without complications; Z79.4 - [facility] (current) use of insulin Status: Acute Assessment and Plan: Patient reports her glucose has been running high for several weeks. * Hemoglobin was 10 0.1% on labs drawn yesterday! (discussed importance of getting her diabetes under control as she is at risk for further kidney damage). * Continue basal insulin and empagliflozin. * Initiate sliding scale insulin, Accu-Cheks, and hypoglycemic protocol. (5) Hypertension: Qualifiers: Hypertension type: essential hypertension Qualified Code(s): I10 - Essential (primary) hypertension Code(s): I10 - Essential (primary) hypertension Status: Acute Assessment and Plan: Blood pressures were soft on arrival to the ED but have improved with IV fluid bolus. * Hold thiazide and loop diuretic as she appears dry. * Losartan also on hold for now given worsening kidney function. (6) Diastolic dysfunction: Code(s): I51.89 - Other ill-defined heart diseases Status: Acute Assessment and Plan: Echocardiogram assures showed diastolic dysfunction grade 2 with a normal EF of 65 to 70%. * Continue judicious IV fluid rehydration with close monitoring of volume status. (7) Obstructive sleep apnea on CPAP: Code(s): G47.33 - Obstructive sleep apnea (adult) (pediatric); Z99.89 - Dependence on other enabling machines and devices Status: Acute Assessment and Plan:
--- NOTE | 2023-02-02 10:51 | PM.DS ---
DS: Admitting Diagnosis Discharge Date 02/02/23 Admitting Diagnosis UTI DS: Discharge Diagnosis Discharge Diagnosis (1) Acute kidney injury superimposed on chronic kidney disease: Code(s): N17.9 - Acute kidney failure, unspecified; N18.9 - Chronic kidney disease, unspecified Status: Acute Assessment and Plan: Precipitating etiology not entirely clear but likely multifactorial. Baseline creatinine ranges between 1.4 and 1.60. Likely due to a combination of hypovolemia from dehydration given poor oral intake and hypoperfusion from hypotension (BP was 87/62 on arrival to the ED) in addition to ongoing loop diuretic, thiazide diuretic, and ARB use. UA with 3+ protein, 1+ blood positive nitrates, 1+ bilirubin, 1+ leukocyte esterase, 51-100 wbc's and WBC casts present Continue IV fluid rehydration with close monitoring of volume status and I/O. Check renal with normal kidney size and no hydronephrosis Creatinine kinase wnl Elevated total protein creatinine ratio. Nephrology consult is greatly appreciated. 02/01 nephrology recommending patient stay one more night to monitor kidneys and BP (2) Transaminitis: Code(s): R74.01 - Elevation of levels of liver transaminase levels Status: Acute Assessment and Plan: Etiology unclear. Abdominal exam is benign an abdominal CT and ultrasound were unremarkable. Consider liver induced injury from nitrofurantoin. Hepatitis panel negative Acetaminophen level normal LFT's trending down (3) Urinary tract infection: Code(s): N39.0 - Urinary tract infection, site not specified Status: Acute Assessment and Plan: Urine remains abnormal despite completing a course of nitrofurantoin. Records requested from urine culture obtained at PCPs office. Cultures positive for e. coli sensitive to ceftriaxone. Continue ceftriaxone (4) Insulin dependent type 2 diabetes mellitus: Code(s): E11.9 - Type 2 diabetes mellitus without complications; Z79.4 - [facility] (current) use of insulin Status: Acute Assessment and Plan: Patient reports her glucose has been running high for several weeks. Hemoglobin was 10 0.1% on labs drawn yesterday! (discussed importance of getting her diabetes under control as she is at risk for further kidney damage). Continue basal insulin and empagliflozin. Initiate sliding scale insulin, Accu-Cheks, and hypoglycemic protocol. (5) Hypertension: Qualifiers: Hypertension type: essential hypertension Qualified Code(s): I10 - Essential (primary) hypertension Code(s): I10 - Essential (primary) hypertension Status: Acute Assessment and Plan: Blood pressures were soft on arrival to the ED but have improved with IV fluid bolus. Hold thiazide and loop diuretic as she appears dry. Losartan also on hold for now given worsening kidney function. (6) Diastolic dysfunction: Code(s): I51.89 - Other ill-defined heart diseases Status: Acute Assessment and Plan: Echocardiogram assures showed diastolic dysfunction grade 2 with a normal EF of 65 to 70%. Continue judicious IV fluid rehydration with close monitoring of volume status. (7) Obstructive sleep apnea on CPAP: Code(s): G47.33 - Obstructive sleep apnea (adult) (pediatric); Z99.89 - Dependence on other enabling machines and devices Status: Acute Assessment and Plan: CPAP will be provided for the patient to use while hospitalized. DS: Summary Hospital Course Hospital Course: This is a 67-year-old female with a past medical history of diabetes, CKD, hypertension, hyperlipidemia, diastolic dysfunction, JAMES and iron deficiency anemia at the present to the ED on 01/30/2023 for evaluation of urinary urgency and frequency. UA with 3+ protein, 1+ blood positive nitrates, 1+ bilirubin,? 1+ leukocyte esterase, 51-100 wbc's and WBC casts present
[2023-02-02 11:36] LABS: Glucose Point of Care 161 mg/dl (65-105)
[2023-02-04 11:17] LABS: Complement Total CH50 >60 U/mL (31-60)
[2023-02-05 17:13] LABS: Chloride Rand Ur 29 mmol/L (32-290); Chloride/Creatinine Rand Ur 27 (38-318); Creatinine Random Urine 106 mg/dL (20-275)
== END 2023-02-02 11:50 | disposition home or self-care (01) ==
LOC: ANHED 12:58 → ANH3MEDSUR 02-01 15:09
PROVIDERS: Internal Medicine Critical Care Medicine; Physician Assistant; Admitting Provider Hospitalist; Emergency Provider Emergency Medicine; PCP Family Medicine; Visit Provider Internal Medicine
DX: N17.9 Acute kidney failure, unspecified (principal); R74.01 Elevation of levels of liver transaminase levels; R53.1 Weakness; R68.89 Other general symptoms and signs; R50.9 Fever, unspecified; R79.89 Other specified abnormal findings of blood chemistry; N39.0 Urinary tract infection, site not specified; B96.20 Unspecified Escherichia coli [E. coli] as the cause of diseases classified elsewhere; Z20.822 Contact with and (suspected) exposure to COVID-19; R94.31 Abnormal electrocardiogram [ECG] [EKG]; D17.71 Benign lipomatous neoplasm of kidney; I12.9 Hypertensive chronic kidney disease with stage 1 through stage 4 chronic kidney disease, or unspecified chronic kidney disease; E11.22 Type 2 diabetes mellitus with diabetic chronic kidney disease; N18.32 Chronic kidney disease, stage 3b; I51.89 Other ill-defined heart diseases; E78.5 Hyperlipidemia, unspecified; G47.33 Obstructive sleep apnea (adult) (pediatric); Z99.89 Dependence on other enabling machines and devices; D50.9 Iron deficiency anemia, unspecified; F10.90 Alcohol use, unspecified, uncomplicated; Y90.0 Blood alcohol level of less than 20 mg/100 ml; Z79.82 Long term (current) use of aspirin; Z79.4 Long term (current) use of insulin; Z79.1 Long term (current) use of non-steroidal anti-inflammatories (NSAID); Z79.899 Other long term (current) drug therapy
CPT/HCPCS: 36415; 74176; 76705; 76775; 80053; 80074; 80307; 81001; 82436; 82550; 82570; 82948; 83036; 83605; 83735; 84100; 84133; 84156; 84300; 84439; 84443; 84480; 85025; 85027; 85610; 85652; 85730; 85999; 86140; 86160; 86162; 87040; 87077; 87086; 87186; 87637; 93005; 96361; 96365; 96372; 96374; 96375; 99285; A9270; G0378; J0360; J0696; J1644; J1815; J7030

== ENCOUNTER 2023-05-31 16:29 | Inpatient (IN) | payer OTHER, SELFPAY ==
[2023-05-31] VITALS (29 sets, daily range): BP systolic 75–159; BP diastolic 36–87; PULSE 51–93; RESP 13–27; TEMP 37.1–37.2; O2SAT 84–100; BMI 39.9
--- NOTE | ~2023-05-31 | CT_ITS ---
EXAMINATION: CT chest abdomen pelvis wo con DATE: 05/31/2023 18:51 INDICATION: syncope, sepsis . TECHNIQUE: Computed tomography (CT) of the chest, abdomen, and pelvis was performed with 100 mL Omnip aque-350 intravenous contrast. Automated exposure control and iterative reconstruction technique were employed. The dose-length product was 1713.73 mGy-cm. COMPARISON: CT abdomen pelvis 01/30/2023 FINDINGS: CHEST: Thoracic aorta: No significant dilation or calcification. Lung parenchyma and airways: 6 mm right lower lobe pulmonary nodule. Thoracic inlet, axillae and chest wall: No thyroid or soft tissue mass. No axillary lymphadenopathy. Mediastinum: No mass or lymphadenopathy. Heart and pericardium: Normal heart size. No pericardial effusion. Coronary artery calcifications: Absent. Pleura: No effusion or mass. Thoracic bones: No acute osseous finding in the chest. ABDOMEN/PELVIS: Liver: Normal. Biliary/Gallbladder: Gallbladder is normal. No bile duct dilation. Pancreas: No mass or duct dilation. Spleen: Normal. Adrenals:No mass. Kidneys: Moderate bilateral perinephric stranding. Simple left midpole and inferior pole cysts. 2.4 c m left inferior pole mass containing macroscopic fat, likely angiomyolipoma. No obstructive calcifica tion or hydronephrosis. GI tract: No small or large bowel dilation. The appendix is surgically absent. Diverticulosis without diverticulitis. Mesentery/Peritoneum: No ascites, mass, or free air. Retroperitoneum: No mass Pelvis: Absent uterus. Pelvic organs are otherwise within normal limits. Soft Tissues: Lower abdominal injection granulomas versus contusion. Abdominopelvic bones: No acute osseous finding in the abdomen/pelvis. Partially visualized uncomplic ated appearing right femoral fixation hardware IMPRESSION: No septic source detected in the chest abdomen or pelvis. 6 mm right lower lobe pulmonary nodule, recommend follow-up low-dose noncontrast CT of the chest in 6 -12 months. 2.4 cm left inferior pole mass, likely angiomyolipoma. Some authors recommend follow-up for growth in approximately 5 years based on current size (as intervention may be considered at a size of 4 cm or greater). Reviewed, dictated and finalized at location K. IMPRESSION: No septic source detected in the chest abdomen or pelvis. 6 mm right lower lobe pulmonary nodule, recommend follow-up low-dose noncontras t CT of the chest in 6-12 months. 2.4 cm left inferior pole mass, likely angiomyolipoma. Some authors recommend f ollow-up for growth in approximately 5 years based on current size (as interven tion may be considered at a size of 4 cm or greater).
--- NOTE | ~2023-05-31 | CT_ITS ---
EXAMINATION: CT brain wo con DATE: 05/31/2023 18:51 INDICATION: confusion . TECHNIQUE: Computed tomography (CT) of the head was performed without intravenous contrast. The mA wa s adjusted according to patient size. Iterative reconstruction technique was employed. The dose-lengt h product was 681.00 mGy-cm. COMPARISON: None. FINDINGS: No acute intracranial hemorrhage or extra-axial fluid collection. No hydrocephalus, mass, or herniation. No acute ischemic infarct. Unremarkable dural venous sinus attenuation. No acute osseous abnormality. The aerated spaces are clear. Mild atrophy and chronic white matter change. Atherosclerotic intracranial calcification. Bilateral l ens replacements. IMPRESSION: No acute intracranial process. Reviewed, dictated and finalized at location K.
[2023-05-31 16:49] LABS: Basophils Absolute Auto 0.1 K/mm3 (0.0-0.1); Basophils Percent Auto 0.5 % (0.2-1.2); Eosinophils Absolute Auto 0.1 K/mm3 (0-0.3); Eosinophils Percent Auto 0.2 % (0-4.4); Hematocrit 34.3 % (37.0-47.0); Hemoglobin 11.2 g/dL (12.0-15.0); Immature Granulocyte Absolute 0.18 K/mm3 (0.00-0.031); Immature Granulocyte Percent A 0.8 % (0-0.5); Lymphocytes Absolute Auto 2.02 K/mm3 (0.9-3.2); Lymphocytes Percent Auto 8.7 % (18.3-44.2); Mean Corpuscular HGB Conc 32.7 g/dl (32-36); Mean Corpuscular Hemoglobin 32.6 pg (26-34); Mean Corpuscular Volume 99.7 fl (80-100); Mean Platelet Volume 9.3 fl (7.4-10.4); Monocytes Absolute Auto 1.1 K/mm3 (0.1-0.6); Monocytes Percent Auto 4.7 % (2.6-8.5); Neutrophils Absolute Auto 19.7 K/mm3 (1.3-6.7); Neutrophils Percent Auto 85.1 % (45.5-73.1); Platelet Count Result 410 k/mm3 (150-375); Red Blood Count 3.44 M/mm3 (4.2-5.4); White Blood Count 23.2 K/mm3 (4.5-10.0)
[2023-05-31 17:04] LABS: Alanine Aminotransferase 24 U/L (6-35); Albumin Level 4.1 g/dL (3.5-5.1); Alkaline Phosphatase 91 U/L (38-126); Anion Gap 10 mmol/L (8-16); Aspartate Amino Transferase 28 U/L (14-36); Bilirubin,Total 0.5 mg/dL (0.2-1.3); Blood Urea Nitrogen 48 mg/dL (7-17); Calcium 9.6 mg/dL (8.4-10.2); Carbon Dioxide 20 mmol/L (22-30); Chloride 110 mmol/L (98-107); Estimated CRCL calculation 26 ml/min; Estimated Glomerular Filt Rate 25; Glucose 144 mg/dL (65-110); Potassium 4.8 mmol/L (3.4-5.0); Sodium 140 mmol/L (137-145)
--- NOTE | 2023-05-31 17:08 | ECG_ITS ---
Measurements Intervals Loco Rate: 55 P: 42 TN: 193 QRS: 3 QRSD: 91 T: 48 QT: 413 QTc: 396 Interpretive Statements SINUS BRADYCARDIA WITH SINUS ARRHYTHMIA CONSIDER INFERIOR INFARCT, AGE INDETERMINATE ABNORMAL ECG COMPARED TO ECG 01/30/2023 09:56:35 SINUS BRADYCARDIA NOW PRESENT SINUS ARRHYTHMIA NOW PRESENT Electronically Signed On 05-31-2023 18:12:47 CDT by Ru Horta D.O.
[2023-05-31 17:17] LABS: Glucose Point of Care 140 mg/dl (65-105)
--- NOTE | 2023-05-31 17:20 | PC.NURSE ---
Patient report given to KETTY Cee. All questions answered and care of patient transferred.
--- NOTE | 2023-05-31 18:11 | ED.GENADULT ---
HPI - General Adult General Chief complaint: Unspecified Stated complaint: wrists, knees, elbows and ankle pain Time Seen by Provider: 05/31/23 16:40 History of Present Illness HPI narrative: Michaela Christian is a 68 y/o female who presents via EMS from home, report was for joint pain to her knees/ wrists/ ankles. On assessment pt was diaphoretic stated that this joint pain has been on and off, but felt well yesterday but has had such severe body aches today could not eat or get out of bed. Denies any known fever/chills admits to recent admission for sepsis possibly related to a urinary infection Denies chest pain/ shortness of breath Related Data Home Medications Medication Instructions Recorded Confirmed aspirin 81 mg chewable tablet 81 mg PO DAILY 12/12/20 04/17/23 ferrous sulfate 325 mg (65 mg 325 mg PO DAILY 12/12/20 04/17/23 iron) tablet insulin lispro 100 unit/mL See Rx Instructions .Route .COMPLEX 09/05/22 04/17/23 subcutaneous pen (Humalog KwikPen (U-100) Insulin) acetaminophen 500 mg capsule 500 mg PO Q6H PRN Mild Pain (Scale 01/30/23 04/17/23 Score 1-4) ascorbic acid (vitamin C) 250 mg 250 mg PO DAILY 01/30/23 04/17/23 chewable tablet cholecalciferol (vitamin D3) 50 50 mcg PO DAILY 02/17/23 04/17/23 mcg (2,000 unit) capsule Allergies Allergy/AdvReac Type Severity Reaction Status Date / Time No Known Allergies Allergy Verified 05/31/23 16:42 Review of Systems Review of Systems: CONSTITUTIONAL: Denies fever, chills, EYES: Denies visual changes, redness, or discharge. ENT: Denies rhinorrhea, congestion, sore throat, or otalgia. CARDIOVASCULAR: Denies chest pain, palpitations, or edema. RESPIRATORY: Denies cough or dyspnea. GASTROINTESTINAL: Denies abdominal pain, nausea, vomiting, or diarrhea. GENITOURINARY: Denies dysuria or hematuria. SKIN: Denies rash or itching. MUSCULOSKELETAL: Denies back pain, complains of severe joint pain NEUROLOGIC: Denies headache, numbness, dizziness, or weakness. PSYCHIATRIC: Denies anxiety or depression. [facility] Past Medical History Medical History Chronic kidney disease, stage 3b Closed intertrochanteric fracture of right hip (08/2022) Diastolic dysfunction Echo in February 2021 showed normal LV systolic function with an EF of 70 75% incident normal diastolic dysfunction grade 2. Hyperlipidemia Hypertension Insulin dependent type 2 diabetes mellitus Obstructive sleep apnea on CPAP Surgical History Surgical History History of cataract extraction (08/2015) History of section (03/18/88) History of section (01/20/85) History of hip surgery Right 08/2022 History of hysterectomy (08/1998) History of open reduction and internal fixation (ORIF) procedure (09/05/22) Right hip trochanteric nail with hip screw. History of open reduction and internal fixation (ORIF) procedure Repair of right ankle fracture. History of tubal ligation Family History Family History Father Diabetes mellitus Heart disease Acute myocardial infarction Mother , 04/28/2000 Breast cancer Alzheimer's dementia Grandparent Cerebrovascular accident maternal grandfather Acute myocardial infarction Social History Social History Social History: Surrogate medical decision maker: Nikolai Christian, spouse. Code status: Full code. Smoking status: Never smoker Alcohol intake: current Alcohol use details: 1 glass of wine a month. Substance use: never Lack of Transportation: No Lack of Food: Never True Current Housing: I Have Housing Concerned About Future Housing: No Difficulty Paying Gas/Electric Bills: No Difficulty Paying for Meds: No Currently Unemployed: No Education: High School Diploma/GED Difficulty w/ Chi
[2023-05-31 18:26] LABS: Basophils Absolute Auto 0.1 K/mm3 (0.0-0.1); Basophils Percent Auto 0.5 % (0.2-1.2); Eosinophils Percent Auto 0.1 % (0-4.4); Hemoglobin 9.7 g/dL (12.0-15.0); Immature Granulocyte Absolute 0.17 K/mm3 (0.00-0.031); Immature Granulocyte Percent A 0.8 % (0-0.5); Lymphocytes Absolute Auto 1.99 K/mm3 (0.9-3.2); Lymphocytes Percent Auto 9.2 % (18.3-44.2); Mean Corpuscular HGB Conc 32.3 g/dl (32-36); Mean Corpuscular Hemoglobin 32.8 pg (26-34); Mean Corpuscular Volume 101.4 fl (80-100); Mean Platelet Volume 9.8 fl (7.4-10.4); Monocytes Absolute Auto 1.3 K/mm3 (0.1-0.6); Monocytes Percent Auto 5.9 % (2.6-8.5); Neutrophils Percent Auto 83.5 % (45.5-73.1); Platelet Count Result 364 k/mm3 (150-375); Red Blood Count 2.96 M/mm3 (4.2-5.4); Red Cell Distribution Width 12.9 % (11.5-14.5); White Blood Count 21.5 K/mm3 (4.5-10.0)
[2023-05-31 18:27] LABS: Lactic Acid Reflex 1.3 mmol/L (0.7-2.0); Prothrombin Time 14.1 Seconds (11.1-14.7)
[2023-05-31 18:28] LABS: Partial Thromboplastin Time 28.7 SECONDS (22.3-36.8)
[2023-05-31 18:29] LABS: Alanine Aminotransferase 21 U/L (6-35); Albumin Level 3.5 g/dL (3.5-5.1); Alkaline Phosphatase 75 U/L (38-126); Anion Gap 8 mmol/L (8-16); Aspartate Amino Transferase 22 U/L (14-36); Bilirubin,Total 0.5 mg/dL (0.2-1.3); Blood Urea Nitrogen 47 mg/dL (7-17); CRP 6.3 mg/dL (<1.0); Calcium 8.8 mg/dL (8.4-10.2); Carbon Dioxide 19 mmol/L (22-30); Chloride 112 mmol/L (98-107); Estimated CRCL calculation 28 ml/min; Estimated Glomerular Filt Rate 26; Glucose 141 mg/dL (65-110); Potassium 4.6 mmol/L (3.4-5.0); Sodium 139 mmol/L (137-145)
[2023-05-31 18:50] LABS: Appearance Urine Cloudy (Clear); Bacteria Urine 4+ /hpf; Bilirubin Urine Negative (Negative); Blood Urine Negative (Negative); Color Urine Yellow (Yellow); Glucose Urine UA 3+ mg/dL (Negative); Ketones Urine Negative (Negative); Leukocyte Esterase Ur 2+ LEU/UL (Negative); Nitrate Urine Positive (Negative); Non Pathogenic Casts 0-2; Protein Urine 2+ mg/dL (Negative); RBC Urine 0-2 /hpf (0-2); Specific Grav Ur 1.017 (1.001-1.035); Squamous Epithelial Cell Urine Few /hpf (Few); Urobilinogen Urine 0.2 mg/dL (<2.0); WBC Urine 51-100 /hpf; pH Urine 5.5 (5.0-9.0)
[2023-05-31 18:52] LABS: Add Urine Microscopic? YES
[2023-05-31 18:54] LABS: Troponin I < 0.012 ng/mL (0.000-0.034)
[2023-05-31] MEDS: cefTRIAXone 2 GM/NS 100 ML 2 GM/100 ML BAG IVPB (18:59)
[2023-05-31 19:10] LABS: Influenza A QL RT-PCR Negative (Negative); Influenza B QL RT-PCR Negative (Negative); RSV RNA, RT-PCR Negative (Negative); SARS-CoV-2 RNA PCR Negative (Negative)
--- NOTE | 2023-05-31 22:41 | ADMGEN ---
This patient, Michaela Christian, was admitted to Medical Room 244-. Patient/family oriented to hospital policies and general routines including ID bracelet, bed and alarms, visiting hours, pain management, procedures, bathroom and other care routines, personal items, smoking policy, room service/diet, and visiting hours. Information on how to activate the Rapid Response Team has been discussed. Patient/Family are encouraged to report perceived risks to care and to ask questions if they do not understand what they are told or what they should do.
--- NOTE | 2023-05-31 22:45 | PM.IMHP ---
H&P: HPI History of Present Illness Date/Time: 05/31/23 22:45 Chief Complaint: patient brought to the ER for evaluation by EMS with complaints of weakness tiredness fatigue and joint pains Narrative: 68 years morbidly obese female is complaining of feeling weak tired and fatigued for the last few days to the point that she could not get out of her bed today. She is also complaining of pain in her knees wrists and ankles. Her family got concerned, EMS was called and patient was brought to the ER for evaluation. EMS found patient to be diaphoretic. workup was done in the ER which showed UTI with sepsis. Patient was given aggressive doses of IV hydration and antibiotics and feels a little better. She is being admitted for medical management and close monitorin.g Review of Systems Review of Systems: she denies any chest pain, palpitations loss of consciousness or blurred vision. All systems reviewed & are unremarkable except as noted in HPI and below PMFSH Past Medical History Medical History Chronic kidney disease, stage 3b Closed intertrochanteric fracture of right hip (08/2022) Diastolic dysfunction Echo in February 2021 showed normal LV systolic function with an EF of 70 75% incident normal diastolic dysfunction grade 2. Hyperlipidemia Hypertension Insulin dependent type 2 diabetes mellitus Obstructive sleep apnea on CPAP Surgical History Surgical History History of cataract extraction (08/2015) History of section (03/18/88) History of section (01/20/85) History of hip surgery Right 08/2022 History of hysterectomy (08/1998) History of open reduction and internal fixation (ORIF) procedure (09/05/22) Right hip trochanteric nail with hip screw. History of open reduction and internal fixation (ORIF) procedure Repair of right ankle fracture. History of tubal ligation Family History Family History Father Diabetes mellitus Heart disease Acute myocardial infarction Mother , 04/28/2000 Breast cancer Alzheimer's dementia Grandparent Cerebrovascular accident maternal grandfather Acute myocardial infarction Social History Social History Social History: Surrogate medical decision maker: Nikolai Christian, spouse. Code status: Full code. Smoking status: Never smoker Alcohol intake: never Alcohol use details: 1 glass of wine a month. Substance use: never Lack of Transportation: No Lack of Food: Never True Current Housing: I Have Housing Concerned About Future Housing: No Difficulty Paying Gas/Electric Bills: No Difficulty Paying for Meds: No Currently Unemployed: No Education: High School Diploma/GED Difficulty w/ Childcare or Family Care: No Living arrangements: with family Additional living arrangements comments: Lives with spouse in [place]. They have 2 adult children, a son and daughter. Occupation/Education: retired Additional occupation/education comments: Retired from [employer] work. Gender identity (if verbalized by the patient): Female Spiritual care concerns: No Meds Home Medications and Allergies Home Medications Medication Instructions Recorded Confirmed Type aspirin 81 mg chewable tablet 81 mg PO DAILY 12/12/20 05/31/23 History ferrous sulfate 325 mg (65 mg 325 mg PO DAILY 12/12/20 05/31/23 History iron) tablet insulin lispro 100 unit/mL See Rx Instructions .Route .COMPLEX 09/05/22 05/31/23 History subcutaneous pen (Humalog KwikPen (U-100) Insulin) acetaminophen 500 mg capsule 500 mg PO Q6H PRN Mild Pain (Scale 01/30/23 05/31/23 History Score 1-4) ascorbic acid (vitamin C) 250 mg 250 mg PO DAILY 01/30/23 05/31/23 History chewable tablet empagliflozin 25 mg tablet 25 mg PO QAM #90 tabs
[2023-05-31 23:17] LABS: Troponin I < 0.012 ng/mL (0.000-0.034)
[2023-06-01] VITALS (10 sets, daily range): BP systolic 126–156; BP diastolic 44–75; PULSE 58–95; RESP 14–18; TEMP 36.2–37.1; O2SAT 97–100
[2023-06-01] MEDS: SODIUM CHLORIDE 0.9% IV 1,000 ML 125 ML IV CONT ×2 (00:06→08:15)
--- NOTE | 2023-06-01 00:18 | PC.NURSE ---
Dr. Patricia, hospitalist rosmery, was on the floor at 0010 and I asked about pt's orders. Pt had 55 units of Lantus ordered HS, blood sugar was 101 when checked. Asked hospitalist if insulin should still be given. Hospitalist said to hold on Lantus rosmery.
[2023-06-01 00:19] LABS: Glucose Point of Care 101 mg/dl (65-105)
[2023-06-01 05:55] LABS: Basophils Absolute Auto 0.1 K/mm3 (0.0-0.1); Basophils Percent Auto 0.5 % (0.2-1.2); Eosinophils Percent Auto 0.2 % (0-4.4); Hematocrit 28.9 % (37.0-47.0); Hemoglobin 9.2 g/dL (12.0-15.0); Immature Granulocyte Percent A 0.6 % (0-0.5); Lymphocytes Absolute Auto 2.34 K/mm3 (0.9-3.2); Lymphocytes Percent Auto 15.1 % (18.3-44.2); Mean Corpuscular HGB Conc 31.8 g/dl (32-36); Mean Corpuscular Hemoglobin 32.3 pg (26-34); Mean Corpuscular Volume 101.4 fl (80-100); Mean Platelet Volume 9.7 fl (7.4-10.4); Monocytes Absolute Auto 1.2 K/mm3 (0.1-0.6); Monocytes Percent Auto 7.8 % (2.6-8.5); Neutrophils Absolute Auto 11.7 K/mm3 (1.3-6.7); Neutrophils Percent Auto 75.8 % (45.5-73.1); Platelet Count Result 329 k/mm3 (150-375); Red Blood Count 2.85 M/mm3 (4.2-5.4); Red Cell Distribution Width 12.8 % (11.5-14.5); White Blood Count 15.5 K/mm3 (4.5-10.0)
[2023-06-01 06:05] LABS: Anion Gap 8 mmol/L (8-16); Blood Urea Nitrogen 36 mg/dL (7-17); Calcium 8.7 mg/dL (8.4-10.2); Carbon Dioxide 18 mmol/L (22-30); Chloride 114 mmol/L (98-107); Estimated CRCL calculation 33 ml/min; Estimated Glomerular Filt Rate 32; Glucose 112 mg/dL (65-110); Magnesium 2.1 mg/dL (1.6-2.3); Phosphorus 3.3 mg/dL (2.5-4.5); Sodium 140 mmol/L (137-145)
[2023-06-01] MEDS: ACETAMINOPHEN 500 MG TABLET PO (06:11)
[2023-06-01] MEDS: PRAVASTATIN SODIUM 10 MG TABLET PO (08:16)
[2023-06-01] MEDS: ASCORBIC ACID 250 MG TABLET PO (08:16)
[2023-06-01] MEDS: EMPAGLIFLOZIN 25 MG TABLET PO (08:16)
[2023-06-01] MEDS: hydroCHLOROthiazide 12.5 MG CAPSULE PO (08:16)
[2023-06-01] MEDS: ASPIRIN 81 MG CHEWABLE TABLET PO (08:17)
[2023-06-01] MEDS: IRBESARTAN 150 MG TABLET 300 MG PO (08:17)
[2023-06-01] MEDS: METOPROLOL SUCCINATE EXT REL 100 MG TABCR PO (08:17)
[2023-06-01] MEDS: amLODIPine BESYLATE 5 MG TABLET 10 MG PO (08:18)
[2023-06-01] MEDS: FERROUS SULFATE 325 MG TABLET DR PO (08:18)
[2023-06-01] MEDS: CHOLECALCIFEROL 1,000 UNITS TABLET 2000 UNITS PO (08:18)
[2023-06-01 08:30] LABS: Glucose Point of Care 106 mg/dl (65-105)
--- NOTE | 2023-06-01 11:19 | PM.IMPN ---
Progress Note: A&P Assessment and Plan (1) Acute UTI: Code(s): N39.0 - Urinary tract infection, site not specified Status: Acute Assessment and Plan: Continue with IV antibiotics and wait for culture reports (2) Sepsis due to urinary tract infection: Code(s): A41.9 - Sepsis, unspecified organism; N39.0 - Urinary tract infection, site not specified Status: Acute Assessment and Plan: Continue IV antibiotic we for culture reports (3) Acute kidney injury superimposed on chronic kidney disease: Code(s): N17.9 - Acute kidney failure, unspecified; N18.9 - Chronic kidney disease, unspecified Status: Acute Assessment and Plan: Improving, continue with IV fluids (4) Chronic kidney disease, stage 3b: Code(s): N18.32 - Chronic kidney disease, stage 3b Status: Chronic Assessment and Plan: Monitor closely (5) Obstructive sleep apnea on CPAP: Code(s): G47.33 - Obstructive sleep apnea (adult) (pediatric); Z99.89 - Dependence on other enabling machines and devices Status: Acute Assessment and Plan: Stable, continue current treatment (6) Hyperlipidemia: Code(s): E78.5 - Hyperlipidemia, unspecified Status: Acute Assessment and Plan: Stable, continue current treatment (7) Insulin dependent type 2 diabetes mellitus: Code(s): E11.9 - Type 2 diabetes mellitus without complications; 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 Status: Acute Assessment and Plan: Stable, continue current treatment (8) Diastolic dysfunction: Code(s): I51.89 - Other ill-defined heart diseases Status: Acute Assessment and Plan: Stable, continue current did (9) JAMIA (acute kidney injury): Code(s): N17.9 - Acute kidney failure, unspecified Status: Acute Assessment and Plan: Improving go monitor closely (10) Transaminitis: Code(s): R74.01 - Elevation of levels of liver transaminase levels Status: Acute Assessment and Plan: Repeat CMP and monitor (11) Hypertension: Qualifiers: Hypertension type: essential hypertension Qualified Code(s): I10 - Essential (primary) hypertension Code(s): I10 - Essential (primary) hypertension Status: Acute Assessment and Plan: Stable on current meds (12) Morbid (severe) obesity due to excess calories: Code(s): E66.01 - Morbid (severe) obesity due to excess calories Status: Acute Assessment and Plan: Diet instructions Subjective Date/time seen: 06/01/23 11:19 Interval history: Patient was seen during the morning rounds today. Feeling better. No fever or chills. No sob or chest pain. No abdominal pain or vomiting. Mood stable. Review of Systems Review of Systems: she denies any chest pain, palpitations loss of consciousness or blurred vision. All systems reviewed & are unremarkable except as noted in HPI and below Exam Narrative: PHYSICAL EXAMINATION: Vital signs: Please see the chart General physical exam: Morbidly obese female, feels weak tired and fatigued Head/eyes: Atraumatic, EOMI, PERRLA ENT: dry mucous membranes, nasal passages clear Neck: Supple, full range of motion, trachea midline CVS: S1 + S2, regular rate and rhythm, no murmurs Respiratory: Bilaterally fair air entry in both lung velasquez, mild B/L crackles, symmetric chest expansion, no distress Abdomen: Soft, + mild lower abdominal tenderness on deep palpation, bowel sounds +ve, no organomegaly Extremities: No clubbing, no cyanosis, no edema, no calf tenderness Musculoskeletal: Moves all, adequate range of motion, no muscle spasms Skin: Warm, dry, no jaundice, no cyanosis Neurological: Awake, alert, oriented x 3, cranial nerves II-XII intact, no focal neurological deficits Psychiatric: Normal mood, non suicidal Objective Data Vital Signs Vital Signs: Vital Signs - 24 hr 05/31/23 16:32 05/31/
[2023-06-01 12:21] LABS: Glucose Point of Care 162 mg/dl (65-105)
[2023-06-01 12:30] LABS: Glucose Point of Care 166 mg/dl (65-105)
[2023-06-01] MEDS: SODIUM CHLORIDE 0.9% IV 1,000 ML 75 ML IV CONT (17:24)
[2023-06-01] MEDS: INSULIN ASPART (*BKC) 100 UNITS/ML SUB-Q (17:26)
[2023-06-01 17:42] LABS: Glucose Point of Care 223 mg/dl (65-105)
[2023-06-01] MEDS: INSULIN GLARGINE (*BKC) 100 UNITS/ML 55 UNITS SUB-Q (20:38)
[2023-06-01 20:47] LABS: Glucose Point of Care 196 mg/dl (65-105)
[2023-06-02] VITALS (7 sets, daily range): BP systolic 130–168; BP diastolic 49–53; PULSE 56–80; RESP 18; TEMP 36.4–36.5; O2SAT 95–100
[2023-06-02 05:45] LABS: Basophils Absolute Auto 0.1 K/mm3 (0.0-0.1); Basophils Percent Auto 0.5 % (0.2-1.2); Eosinophils Absolute Auto 0.2 K/mm3 (0-0.3); Eosinophils Percent Auto 2.1 % (0-4.4); Hematocrit 28.4 % (37.0-47.0); Hemoglobin 9.1 g/dL (12.0-15.0); Immature Granulocyte Absolute 0.09 K/mm3 (0.00-0.031); Immature Granulocyte Percent A 0.8 % (0-0.5); Lymphocytes Absolute Auto 2.37 K/mm3 (0.9-3.2); Lymphocytes Percent Auto 21.7 % (18.3-44.2); Mean Corpuscular Hemoglobin 32.6 pg (26-34); Mean Corpuscular Volume 101.8 fl (80-100); Monocytes Absolute Auto 0.9 K/mm3 (0.1-0.6); Monocytes Percent Auto 8.4 % (2.6-8.5); Neutrophils Absolute Auto 7.2 K/mm3 (1.3-6.7); Neutrophils Percent Auto 66.5 % (45.5-73.1); Platelet Count Result 305 k/mm3 (150-375); Red Blood Count 2.79 M/mm3 (4.2-5.4); Red Cell Distribution Width 12.8 % (11.5-14.5); White Blood Count 10.9 K/mm3 (4.5-10.0)
[2023-06-02 05:55] LABS: Alanine Aminotransferase 20 U/L (6-35); Albumin Level 3.3 g/dL (3.5-5.1); Alkaline Phosphatase 68 U/L (38-126); Anion Gap 7 mmol/L (8-16); Aspartate Amino Transferase 23 U/L (14-36); Bilirubin,Total 0.5 mg/dL (0.2-1.3); Blood Urea Nitrogen 30 mg/dL (7-17); Calcium 8.8 mg/dL (8.4-10.2); Carbon Dioxide 20 mmol/L (22-30); Chloride 112 mmol/L (98-107); Estimated CRCL calculation 33 ml/min; Estimated Glomerular Filt Rate 32; Glucose 113 mg/dL (65-110); Potassium 4.2 mmol/L (3.4-5.0); Sodium 139 mmol/L (137-145)
[2023-06-02] MEDS: SODIUM CHLORIDE 0.9% IV 1,000 ML 75 ML IV CONT (07:40)
[2023-06-02 08:33] LABS: Glucose Point of Care 107 mg/dl (65-105)
[2023-06-02] MEDS: PRAVASTATIN SODIUM 10 MG TABLET PO (08:37)
[2023-06-02] MEDS: FERROUS SULFATE 325 MG TABLET DR PO (08:37)
[2023-06-02] MEDS: ASPIRIN 81 MG CHEWABLE TABLET PO (08:37)
[2023-06-02] MEDS: IRBESARTAN 150 MG TABLET 300 MG PO (08:37)
[2023-06-02] MEDS: METOPROLOL SUCCINATE EXT REL 100 MG TABCR PO (08:37)
[2023-06-02] MEDS: CHOLECALCIFEROL 1,000 UNITS TABLET 2000 UNITS PO (08:37)
[2023-06-02] MEDS: ASCORBIC ACID 250 MG TABLET PO (08:37)
[2023-06-02] MEDS: amLODIPine BESYLATE 5 MG TABLET 10 MG PO (08:37)
[2023-06-02] MEDS: ENOXAPARIN 40 MG/0.4 ML SYRINGE SUB-Q (08:37)
[2023-06-02] MEDS: hydroCHLOROthiazide 12.5 MG CAPSULE PO (08:37)
[2023-06-02] MEDS: EMPAGLIFLOZIN 25 MG TABLET PO (08:38)
--- NOTE | 2023-06-02 11:45 | PM.DS ---
DS: Admitting Diagnosis Discharge Date 06/02/2023 Admitting Diagnosis acute UTI, sepsis due to UTI, acute kidney injury superimposed on chronic kidney disease, chronic kidney disease stage IIIB, obstructive sleep apnea on CPAP, hyperlipidemia, insulin-dependent type 2 diabetes mellitus, diastolic dysfunction, JAMIA, transaminitis, hypertension, morbid obesity due to excess calories DS: Discharge Diagnosis Discharge Diagnosis (1) Acute UTI: Code(s): N39.0 - Urinary tract infection, site not specified Status: Acute (2) Sepsis due to urinary tract infection: Code(s): A41.9 - Sepsis, unspecified organism; N39.0 - Urinary tract infection, site not specified Status: Acute (3) Acute kidney injury superimposed on chronic kidney disease: Code(s): N17.9 - Acute kidney failure, unspecified; N18.9 - Chronic kidney disease, unspecified Status: Acute (4) Chronic kidney disease, stage 3b: Code(s): N18.32 - Chronic kidney disease, stage 3b Status: Chronic (5) Obstructive sleep apnea on CPAP: Code(s): G47.33 - Obstructive sleep apnea (adult) (pediatric); Z99.89 - Dependence on other enabling machines and devices Status: Acute (6) Hyperlipidemia: Code(s): E78.5 - Hyperlipidemia, unspecified Status: Acute (7) Insulin dependent type 2 diabetes mellitus: Code(s): E11.9 - Type 2 diabetes mellitus without complications; Z79.4 - terminal carman (current) use of insulin Status: Acute (8) Diastolic dysfunction: Code(s): I51.89 - Other ill-defined heart diseases Status: Acute (9) JAMIA (acute kidney injury): Code(s): N17.9 - Acute kidney failure, unspecified Status: Acute (10) Transaminitis: Code(s): R74.01 - Elevation of levels of liver transaminase levels Status: Acute (11) Hypertension: Qualifiers: Hypertension type: essential hypertension Qualified Code(s): I10 - Essential (primary) hypertension Code(s): I10 - Essential (primary) hypertension Status: Acute (12) Morbid (severe) obesity due to excess calories: Code(s): E66.01 - Morbid (severe) obesity due to excess calories Status: Acute (13) Impaired ambulation: Code(s): R26.2 - Difficulty in walking, not elsewhere classified Status: Acute DS: Summary Hospital Course Reason for hospitalization: patient was admitted for sepsis and hypotension related to acute urinary tract infection Hospital Course: Patient received IV antibiotics ceftriaxone for urinary tract infection with improvement in blood pressure, joint pains and ambulatory ability. Patient was seen initially by PT and OT with recommendation for SNF placement. However, today patient was a bili ambulate the length the hallway and without significant discomfort. Patient states that she feels well enough to go home at this time. Labs and vital signs were stable. Antibiotics transitioned to cefdinir twice daily. Urine culture E coli sensitivity still pending. Previous E coli urine infections were pansensitive. Patient concerned about recurrent urinary tract infection, discussed with patient that she should speak with primary care regarding daily prophylactic antibiotic use after active infection is cleared up. Status at Discharge Cognitive/behavioral status at discharge: awake alert oriented and very pleasant Functional status at discharge: independent ambulation Overall status at discharge: patient is progressing back to baseline Time Spent with Patient Time attestation: Total time spent providing and/or coordinating discharge services: 40 minutes Time spent: Greater than 30 minutes Exam Narrative: PHYSICAL EXAMINATION: General physical exam: Morbidly obese female, improved spirits, no acute distress, seated upright bedside chair Head/eyes: Atraumatic, EOMI, PERRLA ENT: dry mucous membranes, nasal passages clear Neck: Supple, full range of motion, trac
[2023-06-02 12:05] LABS: Glucose Point of Care 169 mg/dl (65-105)
--- NOTE | 2023-06-03 07:23 | PC.NURSE ---
Urine culture shows E.coli. Susceptible to antibiotic that pt was dc home on. Yung Edouard NP reviewed findings.
== END 2023-06-02 13:30 | disposition home or self-care (01) | DRG 872 ==
LOC: ANHED 19:35 → ANH2MED 20:32
PROVIDERS: Internal Medicine; Admitting Provider Family Medicine; Emergency Provider Nurse Practitioner Family; PCP Family Medicine; Visit Provider Nurse Practitioner
DX: A41.9 Sepsis, unspecified organism (principal); N39.0 Urinary tract infection, site not specified; N17.9 Acute kidney failure, unspecified; I12.9 Hypertensive chronic kidney disease with stage 1 through stage 4 chronic kidney disease, or unspecified chronic kidney disease; N18.32 Chronic kidney disease, stage 3b; E11.22 Type 2 diabetes mellitus with diabetic chronic kidney disease; E78.5 Hyperlipidemia, unspecified; E66.01 Morbid (severe) obesity due to excess calories; R74.01 Elevation of levels of liver transaminase levels; R26.2 Difficulty in walking, not elsewhere classified; B96.20 Unspecified Escherichia coli [E. coli] as the cause of diseases classified elsewhere; G47.33 Obstructive sleep apnea (adult) (pediatric); Z20.822 Contact with and (suspected) exposure to COVID-19; Z79.82 Long term (current) use of aspirin; Z79.4 Long term (current) use of insulin
CPT/HCPCS: 36415; 70450; 71250; 74176; 80048; 80053; 81001; 82948; 83605; 83735; 84100; 84484; 85025; 85610; 85730; 86140; 87040; 87077; 87086; 87186; 87637; 93005; 96365; 97116; 97161; 97165; 97530; 97535; 99285; A9270; J0696; J1650; J1815; J7030

== ENCOUNTER 2023-06-06 09:34 | Outpatient (CLI) | payer OTHER, SELFPAY ==
[2023-06-06 16:34] LABS: Hematocrit 32.8 % (37.0-47.0); Hemoglobin 10.5 g/dL (12.0-15.0); Mean Corpuscular Hemoglobin 32.3 pg (26-34); Mean Corpuscular Volume 100.9 fl (80-100); Mean Platelet Volume 10.1 fl (7.4-10.4); Platelet Count Result 437 k/mm3 (150-375); Red Blood Count 3.25 M/mm3 (4.2-5.4); White Blood Count 11.4 K/mm3 (4.5-10.0)
[2023-06-06 17:01] LABS: Creatinine Urine 65.3 mg/dL; Total Protein Urine Random 75 mg/dL; Ur Ttl Prot Creatinine Ratio 1.15 mg/mg (0-0.20)
[2023-06-06 19:44] LABS: Vitamin D 25 Hydroxy 39.9 ng/mL
[2023-06-06 19:50] LABS: Parathyroid Intact 115.9 pg/mL (7.5-53.5)
[2023-06-06 20:15] LABS: Albumin Level 3.8 g/dL (3.5-5.1); Anion Gap 11 mmol/L (8-16); Blood Urea Nitrogen 33 mg/dL (7-17); Carbon Dioxide 19 mmol/L (22-30); Chloride 109 mmol/L (98-107); Estimated Glomerular Filt Rate 28; Glucose 83 mg/dL (65-110); Phosphorus 4.6 mg/dL (2.5-4.5); Potassium 4.3 mmol/L (3.4-5.0); Sodium 139 mmol/L (137-145)
== END 2023-06-06 09:35 | disposition home or self-care (01) ==
PROVIDERS: Internal Medicine Nephrology; PCP Family Medicine; Visit Provider Family Medicine
DX: E11.9 Type 2 diabetes mellitus without complications (principal); E55.9 Vitamin D deficiency, unspecified; N18.32 Chronic kidney disease, stage 3b
CPT/HCPCS: 36415; 80069; 82306; 82570; 83970; 84156; 85027

== ENCOUNTER 2023-10-17 14:26 | Outpatient (CLI) | payer OTHER, SELFPAY ==
[2023-10-17 18:31] LABS: Albumin Level 4.1 g/dL (3.5-5.1); Anion Gap 9 mmol/L (8-16); Blood Urea Nitrogen 47 mg/dL (7-17); Calcium 9.2 mg/dL (8.4-10.2); Carbon Dioxide 23 mmol/L (22-30); Chloride 104 mmol/L (98-107); Estimated Glomerular Filt Rate 25; Glucose 160 mg/dL (65-110); Potassium 4.2 mmol/L (3.4-5.0); Sodium 136 mmol/L (137-145)
[2023-10-17 18:32] LABS: Hematocrit 35.1 % (37.0-47.0); Hemoglobin 10.8 g/dL (12.0-15.0); Hemoglobin A1C 7.1 % (<5.7); Mean Corpuscular HGB Conc 30.8 g/dl (32-36); Mean Corpuscular Hemoglobin 31.3 pg (26-34); Mean Corpuscular Volume 101.7 fl (80-100); Mean Platelet Volume 10.6 fl (7.4-10.4); Platelet Count Result 403 k/mm3 (150-375); Red Blood Count 3.45 M/mm3 (4.2-5.4); Red Cell Distribution Width 13.2 % (11.5-14.5); White Blood Count 12.3 K/mm3 (4.5-10.0)
[2023-10-17 18:41] LABS: Parathyroid Intact 125.5 pg/mL (7.5-53.5)
[2023-10-17 18:54] LABS: Creatinine Urine 56.7 mg/dL; Total Protein Urine Random 38 mg/dL; Ur Ttl Prot Creatinine Ratio 0.67 mg/mg (0-0.20)
== END 2023-10-17 14:27 | disposition home or self-care (01) ==
LOC: ANHGOSHLAB 14:29
PROVIDERS: PCP Family Medicine; Visit Provider Internal Medicine Nephrology
DX: N18.32 Chronic kidney disease, stage 3b (principal); E11.9 Type 2 diabetes mellitus without complications; R39.15 Urgency of urination
CPT/HCPCS: 36415; 80069; 82570; 83036; 83970; 84156; 85027; 87077; 87086; 87186

== ENCOUNTER 2024-01-12 09:31 | Outpatient (CLI) | payer OTHER, SELFPAY ==
--- NOTE | ~2024-01-12 | MM_ITS ---
EXAMINATION: MM screening [facility] w alvarez HISTORY: Screening mammogram TECHNIQUE: Craniocaudal and mediolateral oblique 3-D tomosynthesis images were obtained and synthetic 2-D images were generated. CAD analysis was submitted and interpreted. COMPARISON: December 26, 2022, August 14, 2021 bilateral screening mammogram examinations BREAST PARENCHYMAL COMPOSITION: There are scattered areas of fibroglandular density. FINDINGS: There is no evidence of suspicious mass, calcification, or architectural distortion to sugg est malignancy in either breast. There has been no suspicious interval change. IMPRESSION: 1. No mammographic evidence of malignancy. 2. Recommend routine screening mammography in one year. BI-RADS Category 1: Negative Reviewed, dictated and finalized at location B.
== END 2024-01-12 09:32 | disposition home or self-care (01) ==
LOC: ANHIMG 09:33
PROVIDERS: PCP Family Medicine; Visit Provider Family Medicine
DX: Z12.31 Encounter for screening mammogram for malignant neoplasm of breast (principal)
CPT/HCPCS: 77063; 77067

== ENCOUNTER 2024-02-23 13:26 | Outpatient (CLI) | payer OTHER, SELFPAY ==
[2024-02-23 18:57] LABS: Hematocrit 31.6 % (37.0-47.0); Hemoglobin 10.3 g/dL (12.0-15.0); Mean Corpuscular HGB Conc 32.6 g/dl (32-36); Mean Corpuscular Hemoglobin 31.8 pg (26-34); Mean Corpuscular Volume 97.5 fl (80-100); Mean Platelet Volume 11.3 fl (7.4-10.4); Platelet Count Result 371 k/mm3 (150-375); Red Blood Count 3.24 M/mm3 (4.2-5.4); Red Cell Distribution Width 14.2 % (11.5-14.5); White Blood Count 19.2 K/mm3 (4.5-10.0)
[2024-02-23 19:35] LABS: Albumin Level 3.8 g/dL (3.5-5.1); Anion Gap 14 mmol/L (4-12); Blood Urea Nitrogen 64 mg/dL (7-17); Calcium 9.1 mg/dL (8.4-10.2); Carbon Dioxide 20 mmol/L (22-30); Chloride 103 mmol/L (98-107); Estimated Glomerular Filt Rate 17; Glucose 454 mg/dL (65-110); Phosphorus 4.7 mg/dL (2.5-4.5); Potassium 4.3 mmol/L (3.4-5.0); Sodium 137 mmol/L (137-145)
[2024-02-23 20:01] LABS: Creatinine Urine 55.7 mg/dL; Total Protein Urine Random 68 mg/dL; Ur Ttl Prot Creatinine Ratio 1.22 mg/mg (0-0.20)
[2024-02-23 20:04] LABS: Parathyroid Intact 137.5 pg/mL (7.5-53.5)
[2024-02-24 00:01] LABS: Vitamin D 25 Hydroxy 21.4 ng/mL
== END 2024-02-23 13:27 | disposition home or self-care (01) ==
LOC: ANHGOSHLAB 13:27
PROVIDERS: PCP Family Medicine; Visit Provider Internal Medicine Nephrology
DX: E11.9 Type 2 diabetes mellitus without complications (principal); E78.5 Hyperlipidemia, unspecified; G47.33 Obstructive sleep apnea (adult) (pediatric); R80.9 Proteinuria, unspecified; Z79.4 Long term (current) use of insulin; Z99.89 Dependence on other enabling machines and devices; I12.9 Hypertensive chronic kidney disease with stage 1 through stage 4 chronic kidney disease, or unspecified chronic kidney disease; N18.32 Chronic kidney disease, stage 3b
CPT/HCPCS: 36415; 80069; 82306; 82570; 83970; 84156; 85027

== ENCOUNTER 2024-02-23 13:52 | Emergency (ER) | payer OTHER, SELFPAY ==
[2024-02-23 14:04] VITALS: BP 127/61; PULSE 95; RESP 20; TEMP 36.8; O2SAT 95
--- NOTE | 2024-02-23 14:31 | ED.URI ---
HPI - URI/Sore Throat General Chief Complaint: Upper Respiratory Infection Stated Complaint: Cough Time Seen by Provider: 02/23/24 14:16 Source: patient and RN notes reviewed Mode of arrival: ambulatory Limitations: no limitations History of Present Illness HPI Narrative: Patient presents today with an 8 day history of cough, fatigue, weakness, decreased appetite. Does report fever at onset of symptoms, but this has since resolved. Reports that the weakness and fatigue that she is experiencing has caused her to be walking with a cane when she does not otherwise. Due to patient's decreased appetite she has not been eating and drinking much at all. She does have diabetes for which she uses insulin and Jardiance, which she has not been taking. She has not checked her blood sugar in approximately 2 weeks. Patient also has history of stage 3 chronic kidney disease and CHF. Related Data Home Medications Medication Instructions Recorded Confirmed aspirin 81 mg chewable tablet 81 mg PO DAILY 12/12/20 02/23/24 ferrous sulfate 325 mg (65 mg 325 mg PO DAILY 12/12/20 02/23/24 iron) tablet acetaminophen 500 mg capsule 500 mg PO Q6H PRN Mild Pain (Scale 01/30/23 02/23/24 Score 1-4) ascorbic acid (vitamin C) 250 mg 250 mg PO DAILY 01/30/23 02/23/24 chewable tablet cholecalciferol (vitamin D3) 50 50 mcg PO DAILY 02/17/23 02/23/24 mcg (2,000 unit) capsule Allergies Allergy/AdvReac Type Severity Reaction Status Date / Time No Known Allergies Allergy Verified 02/17/24 15:00 Review of Systems Review of Systems: CONSTITUTIONAL: Denies body aches, fever, chills, or sweats.+ fatigue EYES: Denies visual changes, redness, or discharge. ENT: Denies rhinorrhea, congestion, sore throat, or otalgia. CARDIOVASCULAR: Denies chest pain, palpitations, or edema. RESPIRATORY: Denies dyspnea.+ cough GASTROINTESTINAL: Denies abdominal pain, nausea, vomiting, or diarrhea.+ decreased appetite GENITOURINARY: Denies dysuria or hematuria. SKIN: Denies rash, itching, or wounds. MUSCULOSKELETAL: Denies back pain, joint pain, or myalgia. NEUROLOGIC: Denies headache, numbness, tingling. + weakness PSYCH: Denies depression or anxiety. [facility] Past Medical History Medical History Chronic kidney disease, stage 3b Closed intertrochanteric fracture of right hip (08/2022) Diastolic dysfunction Echo in February 2021 showed normal LV systolic function with an EF of 70 75% incident normal diastolic dysfunction grade 2. Hyperlipidemia Hypertension Insulin dependent type 2 diabetes mellitus Obstructive sleep apnea on CPAP Osteoarthritis of left knee Surgical History Surgical History History of cataract extraction (08/2015) History of section (03/18/88) History of section (01/20/85) History of hip surgery Right 08/2022 History of hysterectomy (08/1998) History of open reduction and internal fixation (ORIF) procedure (09/05/22) Right hip trochanteric nail with hip screw. History of open reduction and internal fixation (ORIF) procedure Repair of right ankle fracture. History of tubal ligation Family History Family History Father Diabetes mellitus Heart disease Acute myocardial infarction Mother , 04/28/2000 Breast cancer Alzheimer's dementia Grandparent Cerebrovascular accident maternal grandfather Acute myocardial infarction Social History Social History Social History: Surrogate medical decision maker: Nikolai Christian, spouse. Code status: Full code. Smoking status: Never smoker Alcohol intake: never Alcohol use details: 1 glass of wine a month. Substance use: never Lack of Transportation: No Lack of Food: Never True Current Housing: I Have
[2024-02-23 14:33] LABS: Glucose Point of Care 425 mg/dl (65-105)
== END 2024-02-23 14:41 | disposition short-term general hospital (02) ==
PROVIDERS: Emergency Provider Nurse Practitioner; PCP Family Medicine
DX: E11.65 Type 2 diabetes mellitus with hyperglycemia (principal); Z79.4 Long term (current) use of insulin; R53.1 Weakness; I13.0 Hypertensive heart and chronic kidney disease with heart failure and stage 1 through stage 4 chronic kidney disease, or unspecified chronic kidney disease; E11.22 Type 2 diabetes mellitus with diabetic chronic kidney disease; N18.32 Chronic kidney disease, stage 3b; I50.9 Heart failure, unspecified; E78.5 Hyperlipidemia, unspecified; G47.33 Obstructive sleep apnea (adult) (pediatric); M17.12 Unilateral primary osteoarthritis, left knee; Z79.82 Long term (current) use of aspirin
CPT/HCPCS: 82948; 99212; G0463

== ENCOUNTER 2024-02-23 15:02 | Inpatient (IN) | payer OTHER, MEDICARE, SELFPAY ==
[2024-02-23] VITALS (11 sets, daily range): BP systolic 120–152; BP diastolic 45–85; PULSE 83–103; RESP 24–33; TEMP 36.9–38.1; O2SAT 90–94; BMI 38.6
--- NOTE | ~2024-02-23 | US_ITS ---
EXAMINATION: US venous doppler [facility] DATE: 02/24/2024 14:04 INDICATION: Acute pulmonary embolus. TECHNIQUE: Grayscale ultrasound images without and with compression and Doppler ultrasound images of the bilateral lower extremity veins were obtained. COMPARISON: None. FINDINGS: The visualized portions of right common femoral vein, profunda (deep) femoral vein, femoral vein, pop liteal vein, peroneal veins, posterior tibial veins, and greater saphenous vein outflow are patent. The visualized portions of left common femoral vein, profunda femoral vein, femoral vein, popliteal v ein, peroneal veins, posterior tibial veins, and greater saphenous vein outflow are patent. IMPRESSION: 1. No deep venous thrombosis. Reviewed, dictated and finalized at location E.
--- NOTE | ~2024-02-23 | NM_ITS ---
EXAMINATION: NM lung vent and perfusion DATE: 02/23/2024 19:02 INDICATION: Shortness of breath, pneumonia, positive d-dimer TECHNIQUE: The patient breathed 25.1 mCi xenon-133 for ventilation images. 5.5 mCi Tc-99m MAA was adm inistered intravenously for perfusion images. Scintigraphic images of the chest were obtained. COMPARISON: X-ray chest, same date. FINDINGS: The single breath ventilation image demonstrates decreased ventilation in the left upper lobe. Ventil ation washout images show air trapping in the left lower lobe. Perfusion images show diffusely decreased perfusion in the left lung, to a greater extent in the left upper lobe. No segmental defects. Parenchymal airspace disease present in the left lung and in the comparison radiograph. IMPRESSION: 1. Intermediate probability for pulmonary embolism. Reviewed, dictated and finalized at location K.
--- NOTE | ~2024-02-23 | CT_ITS ---
EXAMINATION:CT diagnostic chest wo con DATE: 02/24/2024 10:30 INDICATION: Pneumonia. TECHNIQUE: Computed tomography (CT) of the chest was performed without intravenous contrast. Automate d exposure control and iterative reconstruction technique were employed. The dose-length product (DLP ) was 802.96 mGy-cm. COMPARISON: Chest CT 05/31/2023 FINDINGS: There is mild scarring at right lung apex. There is mild atelectasis in right lung. There a re airspace and groundglass opacities in left upper lobe and left lower lobe with air bronchograms, c onsistent with pneumonia. There is a small left pleural effusion. The heart size is normal. No perica rdial effusion. There are bridging endplate osteophytes at multiple levels in the spine, consistent w ith diffuse idiopathic skeletal hyperostosis (DISH). There is a benign bone island in T2 vertebral gurpreet dy. There is mild chronic anterior wedging of multiple lower thoracic vertebral bodies. IMPRESSION: 1. Left-sided pneumonia. 2. Small left pleural effusion. Reviewed, dictated and finalized at location E.
--- NOTE | ~2024-02-23 | US_ITS ---
EXAMINATION: US renal BI DATE: 02/24/2024 14:05 INDICATION: Acute renal insufficiency TECHNIQUE: Multiple ultrasound grayscale images of the kidneys were obtained. COMPARISON: 01/30/2023 FINDINGS: The right kidney measures 11.0 x 5.1 x 4.9 cm. The left kidney measures 11.7 x 5.6 x 5.1 cm. The kidn eys demonstrate normal echogenicity. There are a few exophytic anechoic cyst at the left kidney the l argest measuring up to 12 mm in maximal diameter. There is no hydronephrosis in either kidney. No st ones identified. The bladder is normal. IMPRESSION: 1. A few small anechoic left renal cysts measuring up to 12 mm. Otherwise normal kidneys without hydr onephrosis. Reviewed, dictated and finalized at location A. IMPRESSION: 1. A few small anechoic left renal cysts measuring up to 12 mm. Otherwise josy l kidneys without hydronephrosis.
--- NOTE | ~2024-02-23 | CT_ITS ---
EXAMINATION: CT brain wo con DATE: 02/24/2024 00:59 INDICATION: Altered mental status. TECHNIQUE: Computed tomography (CT) of the head was performed without intravenous contrast. The mA wa s adjusted according to patient size. Iterative reconstruction technique was employed. The dose-lengt h product was 681.00 mGy-cm. COMPARISON: Head CT 05/31/2023 FINDINGS: There is no intracranial hemorrhage, acute infarction, or abnormal intracranial mass lesion . The ventricles are normal in size. There are likely changes of ocular lens replacement surgeries. T he paranasal sinuses are clear. The mastoid air cells are normal. IMPRESSION: 1. Normal brain. Reviewed, dictated and finalized at location E. IMPRESSION: 1. Normal brain.
--- NOTE | ~2024-02-23 | XR_ITS ---
EXAMINATION: XR chest 2V Exam Date/Time: 02/23/2024 15:55 CDT HISTORY: cough, fever, sob x 1week Comparison: None. RESULT: Lines, tubes, and devices: None. Lungs and pleura: Patchy airspace disease in the left lung. Subsegmental appearing consolidation in the lower lobe in the lateral view. Cardiomediastinal silhouette: Stable. Other: No acute osseous or upper abdominal finding. IMPRESSION: Left lung airspace disease/consolidation, concerning for pneumonia. Reviewed, dictated and finalized at location K.
--- NOTE | ~2024-02-23 | CT_ITS ---
EXAMINATION: CTA chest PE protocol DATE: 02/27/2024 14:39 INDICATION: Acute pulmonary embolism with abnormal intermediate probability VQ scan. TECHNIQUE: Computed tomography (CT) pulmonary angiogram of the chest was performed with 100 mL Omnipa que-350 intravenous contrast. Additional 3D reconstructions utilizing coronal maximum intensity proje ction (MIP) were performed. Automated exposure control and iterative reconstruction technique were em ployed. The dose-length product was 820.97 mGy-cm. COMPARISON: None FINDINGS: No pulmonary embolism through at least the first order segmental pulmonary arteries. No definitive mo re peripheral pulmonary emboli however sensitivity is significantly decreased in the smaller vessels due to progressively increasing respiratory motion, mild in the upper lungs and severe in the lower l ungs along some scattered streak artifact. Groundglass opacity and scattered patchy airspace opacitie s throughout the left lung suspicious for pneumonia. The lung disease is now more widespread througho ut the left lung but there has been some improvement in the region of previously more severe consolid ation in the left upper lobe. Small posterior layering left pleural effusion. Right lung remains devon r with no other airspace opacities, pulmonary edema or pleural effusion. Heart size is normal. No per icardial effusion. Thoracic aorta is normal in caliber with no dissection. Unchanged mild likely reac tive right hilar and mediastinal lymphadenopathy at the prevascular and AP window regions. A few sple heather calcific lesions consistent with old granulomatous disease. Sclerotic likely bone islands at T2. Moderate cervical and thoracic spondylosis with bridging osteophytes at multiple levels consistent wi th diffuse idiopathic skeletal hyperostosis (DISH). IMPRESSION: 1. No pulmonary embolism through the segmental pulmonary arteries with no definitive more peripheral pulmonary embolism although evaluation is significantly more limited particularly at the lung bases d ue to combination of respiratory motion and streak artifact. 2. Evolving pattern of multifocal pneumonia throughout the left lung and small left pleural effusion. Reviewed, dictated and finalized at location A. IMPRESSION: 1. No pulmonary embolism through the segmental pulmonary arteries with no defin itive more peripheral pulmonary embolism although evaluation is significantly m ore limited particularly at the lung bases due to combination of respiratory mo tion and streak artifact. 2. Evolving pattern of multifocal pneumonia throughout the left lung and small left pleural effusion.
[2024-02-23 15:10] LABS: Glucose Point of Care 439 mg/dl (65-105)
--- NOTE | 2024-02-23 15:52 | ED.RECABL ---
HPI - Recheck/Abnormal Lab/Rx General Chief Complaint: Recheck/Abnormal Lab/Rx <Jocelyn Cárdenas PA-C - Last Filed: 02/23/24 18:51> Stated Complaint: elevated BS <Jocelyn Cárdenas PA-C - Last Filed: 02/23/24 18:51> Time Seen by Provider: 02/23/24 15:32 <Jocelyn Cárdenas PA-C - Last Filed: 02/23/24 18:51> Source: patient <Jocelyn Cárdenas PA-C - Last Filed: 02/23/24 18:51> Mode of arrival: ambulatory <Jocelyn Cárdenas PA-C - Last Filed: 02/23/24 18:51> Limitations: no limitations <MORALES Hernandez Last Filed: 02/23/24 18:51> History of Present Illness HPI narrative: Patient is a 68-year-old female, with PMH of CKD, IDDM, HTN, who presents to the ED with report of cough and elevated blood sugar. Patient reports she has been ill for the last 1.5 weeks. She complains of persistent dry cough, general malaise, fatigue, subjective fevers, shortness of breath, decreased appetite. She notes that she has not been using her normal home insulin over the past 2 weeks due to not feeling well and not eating as much. She has not been checking her blood sugars. She went to an urgent care today and her blood sugars noted to be elevated, sent here for further evaluation. Blood sugar upon arrival 439. Patient reports her has been sick with a cough recently as well. She denies abdominal pain, nausea, vomiting. Denies CP. <Jocelyn Cárdenas PA-C - Last Filed: 02/23/24 18:51> Related Data Home Medications: Home Medications Medication Instructions Recorded Confirmed aspirin 81 mg chewable tablet 81 mg PO DAILY 12/12/20 02/23/24 ferrous sulfate 325 mg (65 mg 325 mg PO DAILY 12/12/20 02/23/24 iron) tablet acetaminophen 500 mg capsule 500 mg PO Q6H PRN Mild Pain (Scale 01/30/23 02/23/24 Score 1-4) ascorbic acid (vitamin C) 250 mg 250 mg PO DAILY 01/30/23 02/23/24 chewable tablet cholecalciferol (vitamin D3) 50 50 mcg PO DAILY 02/17/23 02/23/24 mcg (2,000 unit) capsule <Jocelyn Cárdenas PA-C - Last Filed: 02/23/24 18:51> Allergies/Adverse Reactions: Allergies Allergy/AdvReac Type Severity Reaction Status Date / Time No Known Allergies Allergy Verified 02/23/24 15:18 <Jocelyn Cárdenas PA-C - Last Filed: 02/23/24 18:51> Review of Systems Review of Systems: CONSTITUTIONAL: See HPI ENT: Denies rhinorrhea, congestion, sore throat. CARDIOVASCULAR: Denies chest pain, palpitations, or edema. RESPIRATORY: See HPI GASTROINTESTINAL: Denies abdominal pain, nausea, vomiting. NEUROLOGIC: Denies headache, dizziness, numbness, or weakness. <Jocelyn Cárdenas PA-C - Last Filed: 02/23/24 18:51> All systems reviewed & are unremarkable except as noted in HPI and below <Jocelyn Cárdenas PA-C - Last Filed: 02/23/24 18:51> [facility] Past Medical History Medical History: Medical History Chronic kidney disease, stage 3b Closed intertrochanteric fracture of right hip (08/2022) Diastolic dysfunction Echo in February 2021 showed normal LV systolic function with an EF of 70 75% incident normal diastolic dysfunction grade 2. Hyperlipidemia Hypertension Insulin dependent type 2 diabetes mellitus Obstructive sleep apnea on CPAP Osteoarthritis of left knee <Jocelyn Cárdenas PA-C - Last Filed: 02/23/24 18:51> Surgical History Surgical History: Surgical History History of cataract extraction (08/2015) History of section (03/18/88) History of section (01/20/85) History of hip surgery Right 08/2022 History of hysterectomy (08/1998) History of open reduction and internal fixation (ORIF) procedure (12/29/22) Right hip trochanteric nail with hip screw. History of open reduction and internal fixation (ORIF) procedure Repair of right ankle fracture. History of tubal ligation <Ra
[2024-02-23 15:53] LABS: Hematocrit 28.2 % (37.0-47.0); Hemoglobin 9.2 g/dL (12.0-15.0); Mean Corpuscular HGB Conc 32.6 g/dl (32-36); Mean Corpuscular Hemoglobin 31.4 pg (26-34); Mean Corpuscular Volume 96.2 fl (80-100); Mean Platelet Volume 10.9 fl (7.4-10.4); Platelet Count Result 349 k/mm3 (150-375); Red Blood Count 2.93 M/mm3 (4.2-5.4); Red Cell Distribution Width 14.3 % (11.5-14.5); White Blood Count 17.5 K/mm3 (4.5-10.0)
[2024-02-23 16:03] LABS: Alanine Aminotransferase 50 U/L (6-35); Albumin Level 3.7 g/dL (3.5-5.1); Alkaline Phosphatase 189 U/L (38-126); Anion Gap 17 mmol/L (4-12); Aspartate Amino Transferase 29 U/L (14-36); Blood Urea Nitrogen 66 mg/dL (7-17); Calcium 8.9 mg/dL (8.4-10.2); Carbon Dioxide 16 mmol/L (22-30); Chloride 102 mmol/L (98-107); Estimated CRCL calculation 19 ml/min; Estimated Glomerular Filt Rate 17; Glucose 471 mg/dL (65-110); Magnesium 2.7 mg/dL (1.6-2.3); Phosphorus 4.8 mg/dL (2.5-4.5); Potassium 4.1 mmol/L (3.4-5.0); Sodium 135 mmol/L (137-145)
[2024-02-23 16:17] LABS: Beta-Hydroxybutyrate/Acetoacetate 2.41 mmol/L (0.02-0.27)
[2024-02-23 16:19] LABS: Band Neutrophils Percent 4 % (0-6); Monocytes Percent Manual 4 % (3-9); Neutrophils Percent Manual 88 % (46-73); Total Cells Counted 100
[2024-02-23 16:20] LABS: Platelet Estimate Adequate (Adequate); Schistocytes None Seen
[2024-02-23 16:29] LABS: Influenza A QL RT-PCR Negative (Negative); Influenza B QL RT-PCR Negative (Negative); RSV RNA, RT-PCR Negative (Negative); SARS-CoV-2 RNA PCR Negative (Negative)
[2024-02-23] MEDS: SODIUM CHLORIDE 0.9% IV 1,000 ML 999 ML IV CONT ×2 (16:30)
[2024-02-23 16:49] LABS: Alveolar/Arterial O2 Gradient 68.2 mmHg; Base Excess ABG -6.5 mEq/l (+/-2.0); Carboxyhemoglobin 0.7 % THb (0-2.0); Fractional Inspired Oxygen 24 %; HCO3 ABG 16.9 mEq/l (22.0-26.0); Methemoglobin ABG 0.3 %THb (0-1.5); Oxygen Content ABG 12.4 %vol (16.0-22.0); Oxygen Saturation ABG 94.9 % (95.0-100.0); Oxyhemoglobin 92.3 % THb (90.0-100.0); PCO2 ABG 26.7 mmHg (35.0-45.0); PO2 ABG 71.1 mmHg (80.0-100.0); PO2 FiO2 Ratio Arterial Blood 2.96 %; Reduced Hemoglobin 6.7 %THb (0-5.0); Total Hemoglobin 9.5 g/dL (12.0-18.0); pH ABG 7.419 (7.350-7.450)
[2024-02-23 16:50] LABS: Device NASAL CANNULA; Modified Allen's Test Pass; Site Drawn RIGHT RADIAL
--- NOTE | 2024-02-23 16:51 | PCRCNOTE ---
ABG late due to Patient was in restroom.
[2024-02-23 16:58] LABS: INR 1.3; Prothrombin Time 16.7 Seconds (11.1-14.7)
[2024-02-23 16:59] LABS: Partial Thromboplastin Time 38.4 Seconds (22.3-36.8)
[2024-02-23 17:03] LABS: D Dimer 3.11 ug/mL (<0.48)
[2024-02-23 17:05] LABS: Appearance Urine Cloudy (Clear); Bacteria Urine 4+ /hpf; Bilirubin Urine Negative (Negative); Blood Urine 3+ (Negative); Color Urine Yellow (Yellow); Glucose Urine UA 3+ mg/dL (Negative); Ketones Urine Trace mg/dL (Negative); Leukocyte Esterase Ur 2+ LEU/UL (Negative); Need Manual Microscopic Reviewed; Nitrate Urine Negative (Negative); Protein Urine 1+ mg/dL (Negative); Specific Grav Ur 1.021 (1.001-1.035); Squamous Epithelial Cell Urine Occasional /hpf (Few); WBC Urine >100 /hpf (0-3); pH Urine 5.5 (5.0-9.0)
[2024-02-23 17:06] LABS: Add Urine Microscopic? YES
[2024-02-23] MEDS: INSULIN HUMAN REGULAR (*BKC) 100 UNITS in SODIUM CHLORIDE 0.9% IV 99 ML 9.5 UNITS IV CONT (17:37)
[2024-02-23] MEDS: INSULIN HUMAN REGULAR (*BKC) 100 UNITS/ML 10 UNITS IV PUSH (17:38)
--- NOTE | 2024-02-23 18:08 | ECG_ITS ---
Test Date: 2024-02-23 19:02:51 Measurements Intervals [place] Rate: 94 P: 19 DE: 171 QRS: -7 QRSD: 99 T: 15 QT: 338 QTc: 424 Interpretive Statements SINUS RHYTHM MINIMAL VOLTAGE CRITERIA FOR LVH, CONSIDER NORMAL VARIANT [MEETS CRITERIA IN ONE OF: R(aVL), S(V1), R(V5), R(V5/V6)+S(V1)] No previous ECG available for comparison Electronically Signed On 02-24-2024 12:02:02 CDT by Debbie Collins M.D.
[2024-02-23 18:11] LABS: Glucose Point of Care 373 mg/dl (65-105)
[2024-02-23 18:33] LABS: Lactic Acid Reflex 1.4 mmol/L (0.7-2.0)
[2024-02-23 18:33] LABS: Creatine Kinase 137 U/L (30-135)
[2024-02-23 18:35] LABS: Anion Gap 14 mmol/L (4-12); Blood Urea Nitrogen 64 mg/dL (7-17); Calcium 8.4 mg/dL (8.4-10.2); Carbon Dioxide 17 mmol/L (22-30); Chloride 106 mmol/L (98-107); Estimated CRCL calculation 21 ml/min; Estimated Glomerular Filt Rate 19; Glucose 385 mg/dL (65-110); Potassium 3.5 mmol/L (3.4-5.0); Sodium 137 mmol/L (137-145)
[2024-02-23 18:45] LABS: Troponin I < 0.012 ng/mL (0.000-0.034)
[2024-02-23] MEDS: AZITHROMYCIN 500 MG/NS 250 ML 500 MG/250 ML BAG 250 MG IVPB (18:55)
[2024-02-23 19:01] LABS: Glucose Point of Care 316 mg/dl (65-105)
[2024-02-23] MEDS: SODIUM CHLORIDE 0.9% IV 1,000 ML 150 ML (19:34)
[2024-02-23 20:05] LABS: Glucose Point of Care 241 mg/dl (65-105)
--- NOTE | 2024-02-23 20:05 | PC.NURSE ---
2000 blood glucose is 241. Per DKA order set insulin protocol, no change in insulin rate is needed. 10.5 units/hr continued.
[2024-02-23 20:49] LABS: Glucose Point of Care 206 mg/dl (65-105)
[2024-02-23] MEDS: KCL 20 MEQ/D5/0.45% SOD CHL 1,000 ML 150 ML IV CONT (20:49)
--- NOTE | 2024-02-23 20:50 | ADMGEN ---
This patient, Michaela Christian, was admitted to Intensive Care Unit-7. Patient/family oriented to hospital policies and general routines including ID bracelet, bed and alarms, visiting hours, pain management, procedures, bathroom and other care routines, personal items, smoking policy, room service/diet, and visiting hours. Information on how to activate the Rapid Response Team has been discussed. Patient/Family are encouraged to report perceived risks to care and to ask questions if they do not understand what they are told or what they should do.
[2024-02-23 21:54] LABS: Glucose Point of Care 178 mg/dl (65-105)
--- NOTE | 2024-02-23 22:15 | PM.IMHP ---
H&P: HPI History of Present Illness Date/Time: 02/23/24 22:15 Chief Complaint: High blood sugar Narrative: 68-year-old female with a past medical history of historically uncontrolled diabetes, noncompliance with diabetic regimen, chronic kidney disease, essential hypertension, hyperlipidemia, diastolic dysfunction, obstructive sleep apnea and iron deficiency anemia who presented to the ER via private vehicle from urgent care due to elevated blood sugars. At the time of my evaluation the patient is alert orient x3 but is still poor historian. As such, majority of the patient's HPI was obtained from review of past medical records, ER records and only limited input from patient. The patient simply states that she has been ?feeling sick? for a little bit. The patient could not further narrow down time frame of her illness re give me much in the way of symptoms. According to the ER physician report patient had a dry cough, malaise fatigue and subjective fevers as well as dyspnea on exertion for about 10 days. She has not used her home insulin for up to 2 weeks. She usually only checks her sugars about once a day and when she does check them they have been running ?pretty high?. The patient does not give me arrange for glucoses at home. On review of records from patient's primary care physician's office the patient has had history of poor compliance with diabetic medications in the past. She has also been having associated polydipsia and poly urea. When asked about nausea vomiting she says yes. It is unclear if she has been having vomiting or simply having significant nausea. The patient does fall asleep easily during evaluation in seems to space out. Patient's glucoses on arrival to the ER where 439. Her had also recently been sick with upper respiratory symptoms. The patient's viral PCRs were negative in the ER. However chest x-ray did demonstrate left-sided pneumonia. On initial presentation to ER patient was not hypoxic and was afebrile. However, in the ER she did desat down into the 90s and was placed on 1 L nasal cannula since arrival to the ICU the patient has been titrated up to 4 L nasal cannula. Her hypoxia seems to be worse when she falls asleep. Patient does admit having obstructive sleep apnea and has been noncompliant with her CPAP therapy for released a couple of months according to the 's report. After arriving to the ICU the patient did spike a temperature up to 100.5. Patient did fit sepsis criteria with tachycardia tachypnea leukocytosis and fever and blood cultures and urine cultures were obtained in the ER. Patient was started on empiric antibiotic therapy with Rocephin and azithromycin. She had also received 2 L of normal saline bolus. Labs demonstrated evidence of dehydration, mild DKA, and acute on chronic kidney injury. Patient was admitted in this setting to the ICU on insulin drip protocol. Review of Systems Review of Systems: 12 systems were reviewed with pertinent positives and negatives per HPI. Except as documented in the HPI, all other systems were reviewed and are negative. However review of systems limited as patient is encephalopathic. [facility] Past Medical History Medical History Chronic kidney disease, stage 3b Closed intertrochanteric fracture of right hip (08/2022) Diastolic dysfunction Echo in February 2021 showed normal LV systolic function with an EF of 70 75% incident normal diastolic dysfunction grade 2. Hyperlipidemia Hypertension Insulin dependent type 2 diabetes mellitus Obstructive sleep apnea on CPAP Osteoarthritis of left knee Surgical History Surgical History History of cataract extraction (08/2015) History of section (03/18/88) History of section (01/20/85) History of hip surgery Right 08/2022 History of hysterectomy (08/1998) History of open redu
[2024-02-23 22:43] LABS: Blood Urea Nitrogen 64 mg/dL (7-17)
[2024-02-23 22:44] LABS: Glucose 171 mg/dL (65-110)
[2024-02-23 22:45] LABS: Anion Gap 11 mmol/L (4-12); Calcium 8.5 mg/dL (8.4-10.2); Carbon Dioxide 19 mmol/L (22-30); Chloride 112 mmol/L (98-107); Estimated CRCL calculation 22 ml/min; Estimated Glomerular Filt Rate 20; Potassium 3.6 mmol/L (3.4-5.0); Sodium 142 mmol/L (137-145)
[2024-02-23 23:15] LABS: Glucose Point of Care 156 mg/dl (65-105)
[2024-02-24] VITALS (18 sets, daily range): BP systolic 138–171; BP diastolic 56–76; PULSE 69–99; RESP 20–31; TEMP 36.7–37.7; O2SAT 92–98; BMI 38.5
--- NOTE | 2024-02-24 | ECHO_ITS ---
Patient Info Name: Michaela Christian Age: 68 years : 1955 Gender: Female Ht: 62 in Wt: 210 lbs BSA: 2.09 m2 HR: 88 bpm BP: 151 / 63 mmHg Heart Rhythm: Sinus Rhythm Technical Quality: Good Exam Date: 02/24/2024 10:50 AM Exam Location: Echo Lab Patient Status: Inpatient Admit Date: 02/24/2024 Staff Ordering Physician: Benoit Quintana MD Air Breaker Operator: Alecia Coyne RDCS Attending Provider: Saida Mistry DO Exam Type: CA echo dop color flow w con Study Info Indications - Sepsis Complete two-dimensional, color flow and Doppler transthoracic echocardiogram is performed with contrast to opacify the left ventricle and to improve the deliniation of the left ventricle endocardial borders. Contrast/Agitated Saline Contrast/Ag. Saline: Definity Amount: 2.00 ml Administered By: Alecia Coyne RDCS Existing IV Access: Yes IV Access Condition: patent with no signs of infiltration Summary 1. Definity contrast administered improved wall motion interpretation. 2. Left ventricular chamber dimension is normal. 3. Left ventricular systolic function is normal, estimated at 60-65%. 4. The left ventricular diastolic function is abnormal. 5. E/e' 17 is elevated. 6. Left atrial chamber dimension is mildly enlarged. 7. There is mild mitral valve regurgitation. 8. There is trace tricuspid valve regurgitation. 9. Mild pulmonary hypertension, estimated pulmonary arterial systolic pressure is 44 mmHg. Left Ventricle Definity contrast administered improved wall motion interpretation. E/e' 17 is elevated. Left ventricular chamber dimension is normal. Left ventricular systolic function is normal, estimated at 60-65%. The left ventricular diastolic function is abnormal. Right Ventricle Right ventricular chamber dimension is normal. Right ventricular systolic function is normal. Left Atria Left atrial chamber dimension is mildly enlarged. Right Atria Right atrial chamber dimension is normal. Aortic Valve The aortic valve is trileaflet. There is no aortic valve stenosis. There is no aortic valve regurgitation. Pulmonic Valve There is no pulmonic regurgitation. Mitral Valve There is no mitral valve stenosis. There is mild mitral valve regurgitation. Tricuspid Valve There is trace tricuspid valve regurgitation. Mild pulmonary hypertension, estimated pulmonary arterial systolic pressure is 44 mmHg. Pericardium/Pleural There is no pericardial effusion. Inferior Vena Cava Normal inferior vena cava with >50% collapse upon inspiration consistent with normal right atrial pressure, 5 mmHg. Aorta The aortic root size at the sinus of Valsalva is normal. Left Ventricular Outflow Tract Name Value Normal LVOT 2D LVOT Diameter 2.01 cm LVOT Doppler LVOT Peak Gradient 4 mmHg LVOT Mean Gradient 3 mmHg LVOT VTI 20.84 cm LVOT VTI/AV VTI Ratio 0.64 LVOT Stroke Volume 65.82 ml LVOT CO 5.59 l/min LVOT CI 2.68 L/min/m2 Pulmonic Valve
[2024-02-24 00:17] LABS: Glucose Point of Care 194 mg/dl (65-105)
[2024-02-24 01:38] LABS: Anion Gap 12 mmol/L (4-12); Blood Urea Nitrogen 61 mg/dL (7-17); Calcium 8.3 mg/dL (8.4-10.2); Carbon Dioxide 17 mmol/L (22-30); Chloride 112 mmol/L (98-107); Estimated CRCL calculation 23 ml/min; Estimated Glomerular Filt Rate 21; Glucose 216 mg/dL (65-110); Potassium 3.7 mmol/L (3.4-5.0); Sodium 141 mmol/L (137-145)
[2024-02-24 01:40] LABS: Glucose Point of Care 224 mg/dl (65-105)
[2024-02-24 02:02] LABS: MRSA (PCR) NOT DETECTED (NOT DETECTE)
[2024-02-24 03:07] LABS: Glucose Point of Care 239 mg/dl (65-105)
[2024-02-24] MEDS: KCL 20 MEQ/D5/0.45% SOD CHL 1,000 ML 150 ML IV CONT (03:28)
[2024-02-24] MEDS: ENOXAPARIN 100 MG/ML SYRINGE 95 MG SUB-Q (04:17)
[2024-02-24 04:33] LABS: Glucose Point of Care 259 mg/dl (65-105)
[2024-02-24 04:42] LABS: Basophils Absolute Auto 0.1 K/mm3 (0.0-0.1); Basophils Percent Auto 0.6 % (0.2-1.2); Eosinophils Absolute Auto 0.1 K/mm3 (0-0.3); Eosinophils Percent Auto 0.4 % (0-4.4); Hematocrit 31.8 % (37.0-47.0); Hemoglobin 9.8 g/dL (12.0-15.0); Immature Granulocyte Absolute 0.42 K/mm3 (0.00-0.031); Immature Granulocyte Percent A 2.2 % (0-0.5); Lymphocytes Absolute Auto 1.17 K/mm3 (0.9-3.2); Lymphocytes Percent Auto 6.2 % (18.3-44.2); Mean Corpuscular HGB Conc 30.8 g/dl (32-36); Mean Corpuscular Hemoglobin 32.1 pg (26-34); Mean Corpuscular Volume 104.3 fl (80-100); Mean Platelet Volume 10.7 fl (7.4-10.4); Monocytes Absolute Auto 0.9 K/mm3 (0.1-0.6); Monocytes Percent Auto 4.7 % (2.6-8.5); Neutrophils Absolute Auto 16.3 K/mm3 (1.3-6.7); Neutrophils Percent Auto 85.9 % (45.5-73.1); Platelet Count Result 333 k/mm3 (150-375); Red Blood Count 3.05 M/mm3 (4.2-5.4); Red Cell Distribution Width 14.6 % (11.5-14.5); White Blood Count 18.9 K/mm3 (4.5-10.0)
[2024-02-24 05:09] LABS: Anion Gap 10 mmol/L (4-12); Blood Urea Nitrogen 60 mg/dL (7-17); Calcium 8.7 mg/dL (8.4-10.2); Carbon Dioxide 18 mmol/L (22-30); Chloride 112 mmol/L (98-107); Estimated CRCL calculation 23 ml/min; Estimated Glomerular Filt Rate 21; Glucose 270 mg/dL (65-110); Potassium 3.9 mmol/L (3.4-5.0); Sodium 140 mmol/L (137-145)
[2024-02-24 05:18] LABS: Glucose Point of Care 218 mg/dl (65-105)
[2024-02-24 07:26] LABS: Glucose Point of Care 262 mg/dl (65-105)
[2024-02-24 07:26] LABS: Glucose Point of Care 264 mg/dl (65-105)
--- NOTE | 2024-02-24 08:20 | WPDCNINT ---
Assessment and Plan Assessment and plan (1) Sepsis: Qualifiers: Sepsis type: sepsis due to unspecified organism Sepsis acute organ dysfunction status: with acute organ dysfunction Severe sepsis acute organ dysfunction type: acute respiratory failure Acute respiratory failure type: with hypoxia Severe sepsis shock status: without septic shock Qualified Code(s): A41.9 - Sepsis, unspecified organism; R65.20 - Severe sepsis without septic shock; J96.01 - Acute respiratory failure with hypoxia Code(s): A41.9 - Sepsis, unspecified organism Status: Acute Assessment and Plan: Sepsis secondary to pneumonia and UTI Pending urine and blood cultures PCR for influenza RSV and COVID was negative Pending urine Legionella and urine pneumococcal antigen Continue Rocephin azithromycin Patient has received IV fluids and hemodynamics have been acceptable Continue but decrease rate of IV fluids (2) DKA (diabetic ketoacidosis): Qualifiers: Diabetes mellitus complication detail: without coma Diabetes mellitus type: type 2 Qualified Code(s): E11.10 - Type 2 diabetes mellitus with ketoacidosis without coma Code(s): E11.10 - Type 2 diabetes mellitus with ketoacidosis without coma Status: Acute Assessment and Plan: Presented with DKA and received IVF bolus and and is on infusion Patient is on Insulin infusion and Q1H glucose monitoring Serial labs are being done Her anion gap has closed and I will transition her to subcutaneous insulin Resume diabetic diet Adjust insulin dependent are blood sugar levels Decrease rate but continue fluids for another 24 hours (3) Acute kidney injury superimposed on chronic kidney disease: Code(s): N17.9 - Acute kidney failure, unspecified; N18.9 - Chronic kidney disease, unspecified Status: Acute Assessment and Plan: Patient has chronic kidney disease and sees Dr. Cruz as an outpatient Presented with elevated creatinine at 2.3 this could be likely prerenal secondary to sepsis and DKA Continue IV fluids Monitor urine output electrolytes and creatinine Check renal ultrasound, urine electrolytes, CK level Consult nephrology (4) Encephalopathy acute: Code(s): G93.40 - Encephalopathy, unspecified Status: Acute Assessment and Plan: Likely toxic metabolic encephalopathy from sepsis. Patient much more awake and alert this morning and oriented x3 Head CT negative Avoid sedative Check TSH Monitor (5) Pneumonia: Qualifiers: Laterality: left Lung location: lower lobe of lung Pneumonia type: due to unspecified organism Qualified Code(s): J18.9 - Pneumonia, unspecified organism Code(s): J18.9 - Pneumonia, unspecified organism Status: Acute Assessment and Plan: See above (6) UTI (urinary tract infection): Qualifiers: Hematuria presence: without hematuria Urinary tract infection type: acute cystitis Qualified Code(s): N30.00 - Acute cystitis without hematuria Code(s): N39.0 - Urinary tract infection, site not specified Status: Acute Assessment and Plan: See above (7) Obstructive sleep apnea on CPAP: Code(s): G47.33 - Obstructive sleep apnea (adult) (pediatric); Z99.89 - Dependence on other enabling machines and devices Status: Acute Assessment and Plan: CPAP or (8) Pulmonary embolism: Code(s): I26.99 - Other pulmonary embolism without acute cor pulmonale Status: Acute Assessment and Plan: Patient had elevated D-dimer level. CTA could not be done due to elevated creatinine. A V/Q scan was done which was intermediate probability. She received 1 dose of Lovenox which would be good for 24 hours considering her renal function. Will obtain echocardiogram and lower extremity Dopplers to further evaluate. Will also obtain CT scan chest without contrast to evaluate her pneumonia Depending on findings will decide on further anticoag
[2024-02-24 08:40] LABS: Glucose Point of Care 238 mg/dl (65-105)
--- NOTE | 2024-02-24 08:53 | PM.CNNEP ---
Assessment and Plan Assessment and plan (1) JAMIA (acute kidney injury): Code(s): N17.9 - Acute kidney failure, unspecified Status: Acute Assessment and Plan: the patient has acute kidney injury. Her baseline creatinine is around 2 and it is now 2.3. Her sugars have been high and she has been not eating or drinking very well so I think she is probably dehydrated. I agree with her getting some IV fluids. She also has UTI as well as pneumonia which could be contributing to the renal failure as well. Will check urine electrolytes , a CPK, and a renal ultrasound. (2) Chronic kidney disease, stage 3b: Code(s): N18.32 - Chronic kidney disease, stage 3b Status: Chronic Assessment and Plan: the patient has chronic kidney disease stage IIIB. This is due to diabetes and hypertension. Her baseline creatinine is around 2. (3) Hypertension: Qualifiers: Hypertension type: essential hypertension Qualified Code(s): I10 - Essential (primary) hypertension Code(s): I10 - Essential (primary) hypertension Status: Acute Assessment and Plan: Her blood pressure was in the 120s and 130s but after IV fluids it has risen to the 150s and 160s. She is normally on metoprolol irbesartan/hydrochlorothiazide, and amlodipine. Currently she continues on amlodipine plus metoprolol. The irbesartan/ HCT was held because of her renal failure. She is on 5mg of amlodipine. If her blood pressure does not come down soon we can increase it to 10. (4) Type 2 diabetes mellitus: Qualifiers: Diabetes mellitus shelter insulin use: with shelter use Diabetes mellitus complication status: without complication Qualified Code(s): E11.9 - Type 2 diabetes mellitus without complications; Z79.4 - retirement (current) use of insulin Code(s): E11.9 - Type 2 diabetes mellitus without complications Status: Acute Assessment and Plan: She is on an insulin drip now. She is switching to Lantus and a sliding scale. Management per hospitalist. (5) Acute UTI: Code(s): N39.0 - Urinary tract infection, site not specified Status: Acute Assessment and Plan: The patient is getting azithromycin plus ceftriaxone. The former for the pneumonia and the latter for the pneumonia plus the UTI. Cultures are pending (6) Obstructive sleep apnea on CPAP: Code(s): G47.33 - Obstructive sleep apnea (adult) (pediatric); Z99.89 - Dependence on other enabling machines and devices Status: Acute Assessment and Plan: she uses a CPAP religiously History of Present Illness Reason for Consult Consult date: 02/24/24 Chief Complaint Chief complaint: DKA,PNA,JAMIA,UTI History of Present Illness Narrative: travis is a very pleasant 68-year-old lady who has multiple medical problems including chronic kidney disease with a baseline creatinine of around 2, diabetes, hypertension, hyperlipidemia, sleep apnea on a CPAP machine, osteoarthritis, diastolic dysfunction. The patient says that a couple of weeks ago she started having the feeling that she had a bladder infection. She had intermittent pain with urination. She also had some fevers.She began to get weak and did not seek medical attention because of her weakness. Then she stopped taking her insulin regularly and her sugars went up. She finally came to the ER yesterday and had very high sugars plus the UTI. She was admitted to the ICU and placed on an insulin drip. She was given antibiotics. Her creatinine was found to be 2.3 so she was given IV fluids as well. Renal consultation was requested. She denies any bloody urine, foamy urine, kidney stones, or bladder infections. She did have some pain with urination and cloudy and smelly urine off and on over the last couple of weeks. She was not taking any nonsteroidal anti-inflammatory agents. She did continue the other medications that which sh
[2024-02-24] MEDS: CHOLECALCIFEROL 1,000 UNITS TABLET 2000 UNITS PO (08:54)
[2024-02-24] MEDS: LACTATED RINGERS 1,000 ML 75 ML IV CONT (08:54)
[2024-02-24] MEDS: INSULIN GLARGINE (*BKC) 100 UNITS/ML 40 UNITS SUB-Q (08:55)
[2024-02-24] MEDS: INSULIN HUMAN REGULAR (*BKC) 100 UNITS in SODIUM CHLORIDE 0.9% IV 99 ML IV CONT (08:55)
[2024-02-24] MEDS: FERROUS SULFATE 325 MG TABLET DR PO (08:55)
[2024-02-24] MEDS: METOPROLOL SUCCINATE EXT REL 50 MG TABCR PO (08:55)
[2024-02-24] MEDS: amLODIPine BESYLATE 5 MG TABLET PO (08:55)
[2024-02-24] MEDS: PRAVASTATIN SODIUM 10 MG TABLET PO (08:56)
[2024-02-24 09:00] LABS: Anion Gap 7 mmol/L (4-12); Blood Urea Nitrogen 55 mg/dL (7-17); Calcium 8.6 mg/dL (8.4-10.2); Carbon Dioxide 23 mmol/L (22-30); Chloride 112 mmol/L (98-107); Estimated CRCL calculation 23 ml/min; Estimated Glomerular Filt Rate 21; Glucose 253 mg/dL (65-110); Sodium 142 mmol/L (137-145)
[2024-02-24 09:16] LABS: Creatine Kinase 124 U/L (30-135)
[2024-02-24 09:41] LABS: Thyroid Stimulating Hormone Reflex 0.182 uIU/mL (0.465-4.68)
[2024-02-24 10:23] LABS: Creatinine Urine 41.2 mg/dL; Total Protein Urine Random 89 mg/dL; Ur Ttl Prot Creatinine Ratio 2.16 mg/mg (0-0.20); Urea Random Urine 509 MG/DL
[2024-02-24 10:28] LABS: Sodium Urine Random 56 meq/L
[2024-02-24] MEDS: PERFLUTREN LIPID MICROSPHERES 1.5 ML VIAL DILUTED TO 10 ML TOTAL VOLUME IV PUSH (11:20)
[2024-02-24 11:44] LABS: Glucose Point of Care 424 mg/dl (65-105)
--- NOTE | 2024-02-24 11:50 | IVDEFINITY ---
Prior to administration of IV Definity the patient was educated on the risks and benefits of the imaging enhancing agent including potential adverse side effects. The patient verbalized understanding. Allergies were verified. No exclusion criteria were identified and at least one of the following inclusion criteria were met: 1) physician request, 2) patient technically difficult to image (per the [place] [employer] guidelines of two or more segments not discernable within the apical view), or 3) questionable left ventricular function. ?
[2024-02-24] MEDS: INSULIN ASPART (*BKC) 100 UNITS/ML 10 UNITS SUB-Q ×2 (11:58→16:19)
[2024-02-24 12:55] LABS: Glucose Point of Care 392 mg/dl (65-105)
[2024-02-24] MEDS: INSULIN ASPART (*BKC) 100 UNITS/ML SUB-Q ×2 (12:57→20:36)
[2024-02-24] MEDS: AZITHROMYCIN 500 MG/NS 250 ML 500 MG/250 ML BAG 250 MG IVPB (13:40)
[2024-02-24 14:06] LABS: Anion Gap 9 mmol/L (4-12); Blood Urea Nitrogen 52 mg/dL (7-17); Calcium 8.2 mg/dL (8.4-10.2); Carbon Dioxide 19 mmol/L (22-30); Chloride 109 mmol/L (98-107); Estimated CRCL calculation 24 ml/min; Estimated Glomerular Filt Rate 22; Glucose 370 mg/dL (65-110); Potassium 3.8 mmol/L (3.4-5.0); Sodium 137 mmol/L (137-145)
[2024-02-24 16:25] LABS: Glucose Point of Care 199 mg/dl (65-105)
[2024-02-24 17:02] LABS: Free T4 Free Thyroxine Reflex 1.76 ng/dL (0.78-2.19)
[2024-02-24 18:33] LABS: Total Triiodothyronine (T3) 0.62 NG/ML (0.97-1.69)
[2024-02-24] MEDS: ASPIRIN 81 MG CHEWABLE TABLET PO (20:35)
[2024-02-24 20:44] LABS: Glucose Point of Care 248 mg/dl (65-105)
[2024-02-25] VITALS (14 sets, daily range): BP systolic 146–170; BP diastolic 60–77; PULSE 60–107; RESP 16–24; TEMP 36.4–36.8; O2SAT 93–97
[2024-02-25 04:43] LABS: Hematocrit 27.4 % (37.0-47.0); Hemoglobin 8.6 g/dL (12.0-15.0); Mean Corpuscular HGB Conc 31.4 g/dl (32-36); Mean Corpuscular Hemoglobin 30.9 pg (26-34); Mean Corpuscular Volume 98.6 fl (80-100); Mean Platelet Volume 10.9 fl (7.4-10.4); Platelet Count Result 318 k/mm3 (150-375); Red Blood Count 2.78 M/mm3 (4.2-5.4); Red Cell Distribution Width 14.7 % (11.5-14.5); White Blood Count 12.3 K/mm3 (4.5-10.0)
[2024-02-25 04:55] LABS: Alanine Aminotransferase 140 U/L (6-35); Alkaline Phosphatase 204 U/L (38-126); Anion Gap 7 mmol/L (4-12); Aspartate Amino Transferase 219 U/L (14-36); Bilirubin,Total 0.7 mg/dL (0.2-1.3); Blood Urea Nitrogen 51 mg/dL (7-17); Calcium 8.4 mg/dL (8.4-10.2); Carbon Dioxide 21 mmol/L (22-30); Chloride 111 mmol/L (98-107); Estimated CRCL calculation 27 ml/min; Estimated Glomerular Filt Rate 26; Glucose 190 mg/dL (65-110); Magnesium 2.5 mg/dL (1.6-2.3); Phosphorus 3.3 mg/dL (2.5-4.5); Potassium 3.6 mmol/L (3.4-5.0); Sodium 139 mmol/L (137-145)
[2024-02-25 07:55] LABS: Glucose Point of Care 179 mg/dl (65-105)
[2024-02-25] MEDS: INSULIN GLARGINE (*BKC) 100 UNITS/ML 40 UNITS SUB-Q (07:56)
[2024-02-25] MEDS: amLODIPine BESYLATE 5 MG TABLET PO (07:56)
[2024-02-25] MEDS: PRAVASTATIN SODIUM 10 MG TABLET PO (07:57)
[2024-02-25] MEDS: METOPROLOL SUCCINATE EXT REL 50 MG TABCR PO (07:57)
[2024-02-25] MEDS: FERROUS SULFATE 325 MG TABLET DR PO (07:57)
[2024-02-25] MEDS: CHOLECALCIFEROL 1,000 UNITS TABLET 2000 UNITS PO (07:57)
[2024-02-25] MEDS: INSULIN ASPART (*BKC) 100 UNITS/ML 10 UNITS SUB-Q ×2 (08:48→12:04)
--- NOTE | 2024-02-25 10:50 | PM.PNNEP ---
Progress Note: A&P Assessment and Plan (1) JAMIA (acute kidney injury): Code(s): N17.9 - Acute kidney failure, unspecified Status: Acute Assessment and Plan: the patient has acute kidney injury. Her baseline creatinine is around 2 and it is now 2.3. Renal sonogram is unremarkable. A few cysts but nothing acute. urine electrolytes and fractional excretion of urea were non pre renal She has received some IV fluids and her sugars are under better control and so her creatinine has dropped down to 1.9. (2) Chronic kidney disease, stage 3b: Code(s): N18.32 - Chronic kidney disease, stage 3b Status: Chronic Assessment and Plan: the patient has chronic kidney disease stage IIIB. This is due to diabetes and hypertension. Her baseline creatinine is around 2. (3) Hypertension: Qualifiers: Hypertension type: essential hypertension Qualified Code(s): I10 - Essential (primary) hypertension Code(s): I10 - Essential (primary) hypertension Status: Acute Assessment and Plan: Her blood pressure was in the 120s and 130s but after IV fluids it has risen to the 150s and 160s. She is normally on metoprolol irbesartan/hydrochlorothiazide, and amlodipine. Currently she continues on amlodipine plus metoprolol. The irbesartan/ HCT was held because of her renal failure. She is on 5mg of amlodipine. Will increase the amlodipine to 10 (4) Type 2 diabetes mellitus: Qualifiers: Diabetes mellitus senior care insulin use: with termite inspector use Diabetes mellitus complication status: without complication Qualified Code(s): E11.9 - Type 2 diabetes mellitus without complications; Z79.4 - half-way (current) use of insulin Code(s): E11.9 - Type 2 diabetes mellitus without complications Status: Acute Assessment and Plan: this is better. She is off the drip (5) Acute UTI: Code(s): N39.0 - Urinary tract infection, site not specified Status: Acute Assessment and Plan: The patient is getting azithromycin plus ceftriaxone. The former for the pneumonia and the latter for the pneumonia plus the UTI. urine cultures grew E coli. Sensitivities pending (6) Obstructive sleep apnea on CPAP: Code(s): G47.33 - Obstructive sleep apnea (adult) (pediatric); Z99.89 - Dependence on other enabling machines and devices Status: Acute Assessment and Plan: she uses a CPAP religiously Subjective Date/time seen: 02/25/24 10:50 Interval history: Patient is sitting up in a chair. She is off the insulin drip. She feels better. Review of Systems Cardiovascular: Cardiovascular: Reports no additional cardiovascular complaints Respiratory: Respiratory: Reports no additional respiratory complaints Gastrointestinal: Gastrointestinal: Reports no additional gastrointestinal complaints Genitourinary: Genitourinary: Reports no additional female genitourinary complaints Exam Narrative: WDWN in NAD skin no rash head ncat lungs clear cor reg no rub abd BS+ nontender and soft ext no edema. Objective Data Vital Signs Vital Signs: Vital Signs - 24 hr 02/24/24 12:00 02/24/24 12:00 02/24/24 12:00 Temperature Pulse Rate 84 84 84 Respiratory Rate 23 H 23 H Blood Pressure 138/62 Pulse Oximetry 93 94 Oxygen Delivery Nasal Cannula Oxygen Flow Rate 3 Fraction of Inspired Oxygen 02/24/24 16:00 02/24/24 16:00 02/24/24 16:00 Temperature Pulse Rate 71 74 74 Respiratory Rate 22 H 30 H Blood Pressure 142/63 H Pulse Oximetry 97 98 Oxygen Delivery Nasal Cannula Oxygen Flow Rate 2 Fraction of Inspired Oxygen 02/24/24 16:01 02/24/24 12:01 02/24/24 20:00 Temperature 98.2 F 98.4 F 98.4 F Pulse Rate 78 Respiratory Rate 26 H Blood Pressure 152/63 H Pulse Oximetry 94 Oxygen Delivery Oxygen Flow Rate Fraction of Inspired Oxygen 02/24/24 20:00 02/24/24 20
[2024-02-25 11:38] LABS: Glucose Point of Care 262 mg/dl (65-105)
[2024-02-25] MEDS: INSULIN ASPART (*BKC) 100 UNITS/ML SUB-Q ×2 (12:03→21:11)
[2024-02-25] MEDS: AZITHROMYCIN 500 MG/NS 250 ML 500 MG/250 ML BAG 250 MG IVPB (12:41)
[2024-02-25 16:35] LABS: Glucose Point of Care 201 mg/dl (65-105)
--- NOTE | 2024-02-25 16:40 | PM.IMPN ---
Progress Note: A&P Assessment and Plan (1) Hypertension: Qualifiers: Hypertension type: essential hypertension Qualified Code(s): I10 - Essential (primary) hypertension Code(s): I10 - Essential (primary) hypertension Status: Acute (2) Type 2 diabetes mellitus: Qualifiers: Diabetes mellitus senior java developer insulin use: with senior java developer use Diabetes mellitus complication status: without complication Qualified Code(s): E11.9 - Type 2 diabetes mellitus without complications; Z79.4 - USP (current) use of insulin Code(s): E11.9 - Type 2 diabetes mellitus without complications Status: Acute (3) DKA (diabetic ketoacidosis): Qualifiers: Diabetes mellitus complication detail: without coma Diabetes mellitus type: type 2 Qualified Code(s): E11.10 - Type 2 diabetes mellitus with ketoacidosis without coma Code(s): E11.10 - Type 2 diabetes mellitus with ketoacidosis without coma Status: Acute (4) CHENG (acute kidney injury): Code(s): N17.9 - Acute kidney failure, unspecified Status: Acute (5) UTI (urinary tract infection): Qualifiers: Hematuria presence: without hematuria Urinary tract infection type: acute cystitis Qualified Code(s): N30.00 - Acute cystitis without hematuria Code(s): N39.0 - Urinary tract infection, site not specified Status: Acute Plan 68-year-old female with PMH uncontrolled diabetes, noncompliance with diabetic regimen, CKD, essential hypertension, obesity, hyperlipidemia, history of diastolic dysfunction, JAMES compliant with CPAP, her deficiency anemia comes to the ER complaining of high sugars. For the past 2 weeks she has been feeling sick and not taking her insulin. She has had decreased p.o. intake. Admitted on 02/24/2024 for sepsis DKA and Cheng and CKD along with pneumonia and UTI. Pending urine and blood cultures. Quad viral screen negative. Pending urine Legionella and pneumococcal antigen. On Rocephin and azithromycin. She is status post large volume fluid resuscitation fluids have been discontinued. TKA protocol completed she is now back to subcutaneous insulin and eating well. DKA has resolved. Sugars remain consistently elevated still. Creasing mealtime dosing from 10-13 units t.i.d. with meals. A cast now improving which was likely due to DKA and infection and hypovolemia. Nephrology has been consulted. Renal ultrasound unremarkable for anything acute. Amlodipine has been increased from 5-10 mg p.o. q.day.. encephalopathy has resolved and was likely due to toxic / metabolic reasons due to DKA pneumonia/UTI. Lower extremity Dopplers unremarkable. Surface echo current with the EF is 66 5% with abnormal LV diastolic dysfunction. Mild pulmonary hypertension with estimated PA SP of 44 mmHg. will have to discuss possibility of CT with contrast to assess for PE as her GFR improves. D dimer elevated and VQ scan on admission with intermediate probability. Pt ok with treating for now, renal dosing would be 1mg/kg qday. risks vs benefits discussed full code Subjective Date/time seen: 02/25/24 16:40 Interval history: No acute overnight events. Patient sits up in chair without nasal cannula and breathes well. She denies any pain. She has been tolerating diet. Review of Systems Review of Systems: All systems reviewed & are unremarkable except as noted in HPI and below ( Subjective) Exam Const: General: comfortable and no acute distress Eyes: Pupils: Equal, round and reactive pupils present Neck: Neck: supple Resp: Effort & Inspection: normal respiratory effort Auscultation: clear to auscultation bilaterally Cardio: Rate: regular rate Rhythm: regular rhythm GI: GI Palp: Yes Soft to palpation and No Tenderness to palpation present (GI) Extrem: General: no edema Objective Data Vital Signs Vital Signs: Vital Signs - 24 hr 02/24/24 20:00 02/24/24 20:00 02/24/24 20:35
[2024-02-25] MEDS: ENOXAPARIN 100 MG/ML SYRINGE 95 MG SUB-Q (17:39)
[2024-02-25] MEDS: INSULIN ASPART (*BKC) 100 UNITS/ML 13 UNITS SUB-Q (17:40)
[2024-02-25 18:01] LABS: Glucose Point of Care 173 mg/dl (65-105)
[2024-02-25 20:21] LABS: Glucose Point of Care 254 mg/dl (65-105)
[2024-02-25] MEDS: ASPIRIN 81 MG CHEWABLE TABLET PO (21:11)
[2024-02-26 06:08] LABS: Hematocrit 27.2 % (37.0-47.0); Hemoglobin 8.7 g/dL (12.0-15.0); Mean Corpuscular Hemoglobin 31.4 pg (26-34); Mean Corpuscular Volume 98.2 fl (80-100); Mean Platelet Volume 10.8 fl (7.4-10.4); Platelet Count Result 325 k/mm3 (150-375); Red Blood Count 2.77 M/mm3 (4.2-5.4); Red Cell Distribution Width 14.7 % (11.5-14.5); White Blood Count 9.1 K/mm3 (4.5-10.0)
[2024-02-26 06:29] LABS: Alanine Aminotransferase 107 U/L (6-35); Albumin Level 3.1 g/dL (3.5-5.1); Alkaline Phosphatase 181 U/L (38-126); Anion Gap 8 mmol/L (4-12); Aspartate Amino Transferase 80 U/L (14-36); Bilirubin,Total 0.6 mg/dL (0.2-1.3); Blood Urea Nitrogen 46 mg/dL (7-17); Calcium 8.6 mg/dL (8.4-10.2); Carbon Dioxide 22 mmol/L (22-30); Chloride 110 mmol/L (98-107); Estimated CRCL calculation 30 ml/min; Estimated Glomerular Filt Rate 30; Glucose 167 mg/dL (65-110); Magnesium 2.4 mg/dL (1.6-2.3); Phosphorus 4.1 mg/dL (2.5-4.5); Potassium 4.1 mmol/L (3.4-5.0); Sodium 140 mmol/L (137-145)
[2024-02-26 06:56] VITALS: BP 160/52; PULSE 74; RESP 16; TEMP 36.6; O2SAT 100
[2024-02-26 07:47] VITALS: O2SAT 96
--- NOTE | 2024-02-26 08:06 | PM.IMPN ---
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 mellitus terminal makeup operator insulin use: with terminal makeup operator use Qualified Code(s): E11.9 - Type 2 diabetes mellitus without complications; Z79.4 - half-way (current) use of insulin Code(s): E11.9 - Type 2 diabetes mellitus without complications Status: Acute (3) DKA (diabetic ketoacidosis): Qualifiers: Diabetes mellitus complication detail: without coma Diabetes mellitus type: type 2 Qualified Code(s): E11.10 - Type 2 diabetes mellitus with ketoacidosis without coma Code(s): E11.10 - Type 2 diabetes mellitus with ketoacidosis without coma Status: Acute (4) CHENG (acute kidney injury): Code(s): N17.9 - Acute kidney failure, unspecified Status: Acute (5) UTI (urinary tract infection): Qualifiers: Hematuria presence: without hematuria Urinary tract infection type: acute cystitis Qualified Code(s): N30.00 - Acute cystitis without hematuria Code(s): N39.0 - Urinary tract infection, site not specified Status: Acute Plan 68-year-old female with PMH uncontrolled diabetes, noncompliance with diabetic regimen, CKD, essential hypertension, obesity, hyperlipidemia, history of diastolic dysfunction, JAMES compliant with CPAP, her deficiency anemia comes to the ER complaining of high sugars. For the past 2 weeks she has been feeling sick and not taking her insulin. She has had decreased p.o. intake. Admitted on 02/24/2024 for sepsis DKA and Cheng and CKD along with pneumonia and UTI. DKA DKA has resolved Continue Lantus 40 units q.a.m., aspart 13 units t.i.d., sliding scale Optimize insulin for better glucose control UTI Patient has been treated with ceftriaxone since February 23, Pending urine culture: ecoli and blood culture: -ve Pneumonia Patient has been treated with azithromycin and ceftriaxone since February 23 Quad viral screen negative. Pending urine Legionella and pneumococcal antigen. Continue azithromycin, changed to Augmentin p.o. Acute renal failure Nephrology has been consulted. Renal ultrasound unremarkable for anything acute. Renal function is improving Continue D5 half normal saline IV 125 mL/hour Essential hypertension Amlodipine has been increased from 5-10 mg p.o. q.day.. Acute encephalopathy has resolved and was likely due to toxic / metabolic reasons due to DKA pneumonia/UTI. Short of breath Due to multiple comorbidities including pneumonia, JAMES, Lower extremity Dopplers unremarkable. Surface echo current with the EF is 66 5% with abnormal LV diastolic dysfunction. Mild pulmonary hypertension with estimated PA SP of 44 mmHg. D dimer elevated and VQ scan on admission with intermediate probability. would be 1mg/kg qday. risks vs benefits discussed May cause order CTA contrast when GFR continue improved above 30 full code Subjective Date/time seen: 02/26/24 08:06 Interval history: No acute overnight events. Patient feels better today, still has cough with scant phlegm, no shortness breath at rest Labs reviewed, kidney function continue to improve, GFR is 30, glucose is better controlled. Exam Narrative: General: Pt is alert awake and in NAD Lungs/Chest: Trachea central coarse BS B/L, crackles on left base no wheezing Cardiac: RRR. Normal S1 S2. No murmurs Circulation: Pedal pulses are intact and symmetrical. Abdomen: Normal bowel sounds.. Soft. NT. ND. Extremities: No clubbing, cyanosis or edema. Warm, right leg appears slightly more swollen than left but does not have any distinct edema : Whitten in place Neurologic: Follows commands. Move
[2024-02-26 08:10] LABS: Glucose Point of Care 173 mg/dl (65-105)
[2024-02-26 08:31] VITALS: PULSE 74
[2024-02-26] MEDS: CHOLECALCIFEROL 1,000 UNITS TABLET 2000 UNITS PO (08:31)
[2024-02-26] MEDS: amLODIPine BESYLATE 5 MG TABLET 10 MG PO (08:31)
[2024-02-26] MEDS: METOPROLOL SUCCINATE EXT REL 50 MG TABCR PO (08:31)
[2024-02-26] MEDS: INSULIN GLARGINE (*BKC) 100 UNITS/ML 40 UNITS SUB-Q (08:31)
[2024-02-26] MEDS: PRAVASTATIN SODIUM 10 MG TABLET PO (08:31)
[2024-02-26] MEDS: FERROUS SULFATE 325 MG TABLET DR PO (08:31)
[2024-02-26] MEDS: INSULIN ASPART (*BKC) 100 UNITS/ML 13 UNITS SUB-Q ×3 (08:32→17:30)
--- NOTE | 2024-02-26 09:08 | PM.PNNEP ---
Progress Note: A&P Assessment and Plan (1) JAMIA (acute kidney injury): Code(s): N17.9 - Acute kidney failure, unspecified Status: Acute Assessment and Plan: the patient has acute kidney injury. Her baseline creatinine is around 2 and it was 2.3 on admission. Renal sonogram is unremarkable. A few cysts but nothing acute. urine electrolytes and fractional excretion of urea were non pre renal She has received some IV fluids and her sugars are under better control and so her creatinine has improved to its baseline of 1.7. (2) Chronic kidney disease, stage 3b: Code(s): N18.32 - Chronic kidney disease, stage 3b Status: Chronic Assessment and Plan: the patient has chronic kidney disease stage IIIB. This is due to diabetes and hypertension. Her baseline creatinine is around 2. It was this value in October of 2023. She has been at or below her baseline the last couple of days. (3) Hypertension: Qualifiers: Hypertension type: essential hypertension Qualified Code(s): I10 - Essential (primary) hypertension Code(s): I10 - Essential (primary) hypertension Status: Acute Assessment and Plan: Her blood pressure has risen a little bit. It is currently running in the 140s to 170s Currently she continues on amlodipine plus metoprolol. The irbesartan/ HCT was held because of her renal failure. Will restart the irbesartan since her kidney function has improved to normal for couple of days. Consider folding and hydrochlorothiazide in a couple of days if things are stable. (4) Type 2 diabetes mellitus: Qualifiers: Diabetes mellitus snf insulin use: with field representatives director use Diabetes mellitus complication status: without complication Qualified Code(s): E11.9 - Type 2 diabetes mellitus without complications; Z79.4 - quality assurance practice manager (current) use of insulin Code(s): E11.9 - Type 2 diabetes mellitus without complications Status: Acute Assessment and Plan: this is better. She is off the drip On Accu-Cheks plus sliding scale insulin. Management per hospitalists. (5) Acute UTI: Code(s): N39.0 - Urinary tract infection, site not specified Status: Acute Assessment and Plan: The patient is getting azithromycin plus ceftriaxone. The former for the pneumonia and the latter for the pneumonia plus the UTI. urine cultures grew E coli. Sensitivities show responsiveness to ceftriaxone. (6) Obstructive sleep apnea on CPAP: Code(s): G47.33 - Obstructive sleep apnea (adult) (pediatric); Z99.89 - Dependence on other enabling machines and devices Status: Acute Assessment and Plan: she uses a CPAP religiously Subjective Date/time seen: 02/26/24 09:08 Interval history: Michaela is feeling okay today. No chest pain or shortness of breath. Sugars in the high 170s. Appetite is pretty good. Exam Narrative: WDWN in NAD skin no rash or subQ nodules head ncat lungs clear bilaterally cor reg no rub abd BS+ nontender and soft ext no edema. Objective Data Vital Signs Vital Signs: Vital Signs - 24 hr 02/25/24 10:00 02/25/24 19:56 02/25/24 23:00 Temperature 97.6 F Pulse Rate 72 63 60 Respiratory Rate 16 Blood Pressure 146/60 H Pulse Oximetry 96 95 Oxygen Delivery CPAP Fraction of Inspired Oxygen 02/25/24 23:00 02/26/24 06:56 02/26/24 07:47 Temperature 97.8 F Pulse Rate 74 Respiratory Rate 16 Blood Pressure 160/52 H Pulse Oximetry 95 100 96 Oxygen Delivery Room Air Room Air Fraction of Inspired Oxygen 21 02/26/24 08:31 Temperature Pulse Rate 74 Respiratory Rate Blood Pressure Pulse Oximetry Oxygen Delivery Fraction of Inspired Oxygen Intake/Output Intake/Output: Intake & Output 02/23/24 02/24/24 02/25/24 02/26/24 23:59 23:59 23:59 23:59 Intake Total 2540.8 2638.9 2380 350 Output Total 1500 700 Balance 2540.8 1138.9 16
[2024-02-26 10:05] VITALS: BMI 38.8
[2024-02-26 11:59] LABS: Glucose Point of Care 239 mg/dl (65-105)
[2024-02-26] MEDS: AMOXICILLIN/CLAVULANATE K 875-125 MG TAB 1 TABLET PO ×2 (12:09→20:36)
[2024-02-26] MEDS: AZITHROMYCIN 250 MG TABLET 500 MG PO (12:09)
[2024-02-26] MEDS: IRBESARTAN 150 MG TABLET PO (12:10)
[2024-02-26] MEDS: INSULIN ASPART (*BKC) 100 UNITS/ML SUB-Q ×2 (12:11→17:31)
[2024-02-26 14:00] VITALS: BP 147/56; PULSE 66; RESP 16; TEMP 36.6; O2SAT 98
[2024-02-26 17:11] LABS: Glucose Point of Care 221 mg/dl (65-105)
[2024-02-26] MEDS: ASPIRIN 81 MG CHEWABLE TABLET PO (20:36)
[2024-02-26 20:45] VITALS: BP 160/70; PULSE 68; RESP 16; TEMP 36.4; O2SAT 100
[2024-02-26 21:24] LABS: Glucose Point of Care 193 mg/dl (65-105)
[2024-02-27] VITALS (7 sets, daily range): BP systolic 143–148; BP diastolic 56–60; PULSE 60–78; RESP 14–24; TEMP 36.3–36.8; O2SAT 97–99
[2024-02-27 05:24] LABS: Hematocrit 27.1 % (37.0-47.0); Hemoglobin 8.5 g/dL (12.0-15.0); Mean Corpuscular HGB Conc 31.4 g/dl (32-36); Mean Corpuscular Hemoglobin 31.3 pg (26-34); Mean Corpuscular Volume 99.6 fl (80-100); Mean Platelet Volume 10.6 fl (7.4-10.4); Platelet Count Result 380 k/mm3 (150-375); Red Blood Count 2.72 M/mm3 (4.2-5.4); Red Cell Distribution Width 14.7 % (11.5-14.5); White Blood Count 9.9 K/mm3 (4.5-10.0)
[2024-02-27 05:42] LABS: Alanine Aminotransferase 84 U/L (6-35); Albumin Level 3.2 g/dL (3.5-5.1); Alkaline Phosphatase 160 U/L (38-126); Anion Gap 9 mmol/L (4-12); Aspartate Amino Transferase 47 U/L (14-36); Bilirubin,Total 0.6 mg/dL (0.2-1.3); Blood Urea Nitrogen 41 mg/dL (7-17); Calcium 8.6 mg/dL (8.4-10.2); Carbon Dioxide 22 mmol/L (22-30); Chloride 110 mmol/L (98-107); Estimated CRCL calculation 32 ml/min; Estimated Glomerular Filt Rate 32; Glucose 162 mg/dL (65-110); Magnesium 2.3 mg/dL (1.6-2.3); Phosphorus 4.2 mg/dL (2.5-4.5); Potassium 4.2 mmol/L (3.4-5.0); Sodium 141 mmol/L (137-145)
[2024-02-27 07:31] LABS: Glucose Point of Care 161 mg/dl (65-105)
--- NOTE | 2024-02-27 08:39 | PM.IMPN ---
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 owner operator truck driver insulin use: with intermodal owner operator truck driver use Qualified Code(s): E11.9 - Type 2 diabetes mellitus without complications; Z79.4 - [facility] (current) use of insulin Code(s): E11.9 - Type 2 diabetes mellitus without complications Status: Acute (3) DKA (diabetic ketoacidosis): Qualifiers: Diabetes mellitus complication detail: without coma Diabetes mellitus type: type 2 Qualified Code(s): E11.10 - Type 2 diabetes mellitus with ketoacidosis without coma Code(s): E11.10 - Type 2 diabetes mellitus with ketoacidosis without coma Status: Acute (4) CHENG (acute kidney injury): Code(s): N17.9 - Acute kidney failure, unspecified Status: Acute (5) UTI (urinary tract infection): Qualifiers: Hematuria presence: without hematuria Urinary tract infection type: acute cystitis Qualified Code(s): N30.00 - Acute cystitis without hematuria Code(s): N39.0 - Urinary tract infection, site not specified Status: Acute Plan 68-year-old female with PMH uncontrolled diabetes, noncompliance with diabetic regimen, CKD, essential hypertension, obesity, hyperlipidemia, history of diastolic dysfunction, JAMES compliant with CPAP, her deficiency anemia comes to the ER complaining of high sugars. For the past 2 weeks she has been feeling sick and not taking her insulin. She has had decreased p.o. intake. Admitted on 02/24/2024 for sepsis DKA and Cheng and CKD along with pneumonia and UTI. DKA DKA has resolved Continue Lantus 40 units q.a.m., aspart 13 units t.i.d., sliding scale Optimize insulin for better glucose control UTI Patient has been treated with ceftriaxone since February 23, urine culture: ecoli and blood culture: -ve Pneumonia Patient has been treated with azithromycin and ceftriaxone since February 23 Quad viral screen negative. Pending urine Legionella and pneumococcal antigen. Continue azithromycin, changed to Augmentin p.o. Acute renal failure Nephrology has been consulted. Renal ultrasound unremarkable for anything acute. Renal function is improving Continue D5 half normal saline IV 125 mL/hour Essential hypertension Amlodipine has been increased from 5-10 mg p.o. q.day.. Acute encephalopathy has resolved and was likely due to toxic / metabolic reasons due to DKA pneumonia/UTI. Short of breath Due to multiple comorbidities including pneumonia, JAMES, Lower extremity Dopplers unremarkable. Surface echo current with the EF is 66 5% with abnormal LV diastolic dysfunction. Mild pulmonary hypertension with estimated PA SP of 44 mmHg. D dimer elevated and VQ scan on admission with intermediate probability. would be 1mg/kg qday. risks vs benefits discussed May cause order CTA contrast when GFR continue improved above 30 02/26: Renal function continue to improve, GFR 32, ordered CTA of the chest with PE protocol, start normal saline IV 100 mL/hour for renal protection CT scan showed no PE but revealed pneumonia, changed to heparin 5000 mg q.8 hours full code Subjective Date/time seen: 02/27/24 08:39 Interval history: I saw examined patient today. Patient feels comfortable, denies short of breath and rest, denies chest pain, abdomen pain, patient is afebrile, blood pressure stable, labs reviewed, kidney continue to improve, GFR 32, Exam Narrative: General: Pt is alert awake and in NAD Lungs/Chest: Trachea central coarse BS B/L, crackles on left base no wheezing Cardiac: RRR. Normal S1 S2. No murmurs Circulation: Pedal pulses are intact and symmetrical. Abdome
[2024-02-27] MEDS: AMOXICILLIN/CLAVULANATE K 875-125 MG TAB 1 TABLET PO ×2 (08:43→20:41)
[2024-02-27] MEDS: METOPROLOL SUCCINATE EXT REL 50 MG TABCR PO (08:44)
[2024-02-27] MEDS: AZITHROMYCIN 250 MG TABLET 500 MG PO (08:44)
[2024-02-27] MEDS: FERROUS SULFATE 325 MG TABLET DR PO (08:45)
[2024-02-27] MEDS: PRAVASTATIN SODIUM 10 MG TABLET PO (08:45)
[2024-02-27] MEDS: amLODIPine BESYLATE 5 MG TABLET 10 MG PO (08:45)
[2024-02-27] MEDS: CHOLECALCIFEROL 1,000 UNITS TABLET 2000 UNITS PO (08:45)
[2024-02-27] MEDS: INSULIN ASPART (*BKC) 100 UNITS/ML 13 UNITS SUB-Q ×3 (08:46→17:15)
[2024-02-27] MEDS: IRBESARTAN 150 MG TABLET PO (08:46)
[2024-02-27] MEDS: INSULIN GLARGINE (*BKC) 100 UNITS/ML 40 UNITS SUB-Q (08:48)
[2024-02-27] MEDS: SODIUM CHLORIDE 0.9% IV 1,000 ML 100 ML IV CONT ×2 (11:29→21:24)
[2024-02-27 12:00] LABS: Glucose Point of Care 172 mg/dl (65-105)
--- NOTE | 2024-02-27 12:25 | PM.PNNEP ---
Progress Note: A&P Assessment and Plan (1) JAMIA (acute kidney injury): Code(s): N17.9 - Acute kidney failure, unspecified Status: Acute Assessment and Plan: the patient has acute kidney injury. Her baseline creatinine is around 2 and it was 2.3 on admission. Renal sonogram is unremarkable. A few cysts but nothing acute. urine electrolytes and fractional excretion of urea were non pre renal Creatinine is doing really well at 1.6. (2) Chronic kidney disease, stage 3b: Code(s): N18.32 - Chronic kidney disease, stage 3b Status: Chronic Assessment and Plan: the patient has chronic kidney disease stage IIIB. This is due to diabetes and hypertension. Her baseline creatinine is around 2. It was this value in October of 2023. She has been at or below her baseline over the last few days. (3) Hypertension: Qualifiers: Hypertension type: essential hypertension Qualified Code(s): I10 - Essential (primary) hypertension Code(s): I10 - Essential (primary) hypertension Status: Acute Assessment and Plan: Her blood pressure is better on the irbesartan. (4) Type 2 diabetes mellitus: Qualifiers: Diabetes mellitus terminal operator insulin use: with prison use Diabetes mellitus complication status: without complication Qualified Code(s): E11.9 - Type 2 diabetes mellitus without complications; Z79.4 - intermodal truck driver (current) use of insulin Code(s): E11.9 - Type 2 diabetes mellitus without complications Status: Acute Assessment and Plan: this is better. She is off the drip On Accu-Cheks plus sliding scale insulin. Management per hospitalists. (5) Acute UTI: Code(s): N39.0 - Urinary tract infection, site not specified Status: Acute Assessment and Plan: The patient is getting azithromycin plus ceftriaxone. The former for the pneumonia and the latter for the pneumonia plus the UTI. urine cultures grew E coli on zith and augmentin. (6) Obstructive sleep apnea on CPAP: Code(s): G47.33 - Obstructive sleep apnea (adult) (pediatric); Z99.89 - Dependence on other enabling machines and devices Status: Acute Assessment and Plan: she uses a CPAP religiously Subjective Date/time seen: 02/27/24 12:25 Interval history: family in the room pt feels okay. awaiting a CTA to see if she needs to be on anticoagulants. getting some hydation. Exam Narrative: WDWN in NAD skin no rash or subQ nodules head ncat lungs clear cor reg no rub abd BS+ nontender and soft ext no edema or cyanosis. Objective Data Vital Signs Vital Signs: Vital Signs - 24 hr 02/26/24 14:00 02/26/24 20:45 02/27/24 00:00 Temperature 97.8 F 97.6 F Pulse Rate 66 68 68 Respiratory Rate 16 16 Blood Pressure 147/56 H 160/70 H Pulse Oximetry 98 100 99 Oxygen Delivery CPAP 02/27/24 06:00 02/27/24 08:44 Temperature 97.6 F Pulse Rate 60 78 Respiratory Rate 14 Blood Pressure 143/60 H Pulse Oximetry 97 Oxygen Delivery Intake/Output Intake/Output: Intake & Output 02/24/24 02/25/24 02/26/24 02/27/24 23:59 23:59 23:59 23:59 Intake Total 2638.9 2380 2070 980 Output Total 1500 700 Balance 1138.9 1680 2070 980 Meds/Results Medications: Active Medications Generic Name Dose Route Start Last Admin Trade Name Freq PRN Reason Stop Dose Admin Acetaminophen 1,000 mg 02/23/24 18:37 Acetaminophen 500 Mg Tablet PO Q6H PRN Mild Pain (1-3) or Fever Amlodipine Besylate 10 mg 02/26/24 09:00 02/27/24 08:45 Amlodipine Besylate 5 Mg Tablet PO 10 mg DAILY SONJA Administration Amoxicillin/Clavulanate Potassium 1 tablet 02/26/24 12:00 02/27/24 08:43 Amoxicillin/Clavulanate K 875-125 Mg Tab PO 02/29/24 21:01 1 tablet Q12HR SONJA Administration Aspirin 81 mg 02/24/24 21:00 02/26/24 20:36 Aspirin 81 Mg Chewable Tablet PO 81 mg HS SONJA Administrat
[2024-02-27 16:49] LABS: Glucose Point of Care 155 mg/dl (65-105)
[2024-02-27 20:42] LABS: Glucose Point of Care 178 mg/dl (65-105)
[2024-02-27] MEDS: ASPIRIN 81 MG CHEWABLE TABLET PO (20:42)
[2024-02-27] MEDS: HEPARIN SODIUM 5,000 UNITS/ML VIAL 5000 UNITS SUB-Q (21:24)
[2024-02-27 22:28] LABS: Pneumococcal Antigen Urine NOT DETECTED
[2024-02-28 04:00] VITALS: BP 176/69; PULSE 64; RESP 17; TEMP 36.8; O2SAT 96
[2024-02-28 04:40] LABS: Hematocrit 27.5 % (37.0-47.0); Hemoglobin 8.5 g/dL (12.0-15.0); Mean Corpuscular HGB Conc 30.9 g/dl (32-36); Mean Corpuscular Hemoglobin 31.4 pg (26-34); Mean Corpuscular Volume 101.5 fl (80-100); Mean Platelet Volume 10.1 fl (7.4-10.4); Platelet Count Result 372 k/mm3 (150-375); Red Blood Count 2.71 M/mm3 (4.2-5.4); Red Cell Distribution Width 14.8 % (11.5-14.5); White Blood Count 9.6 K/mm3 (4.5-10.0)
[2024-02-28 04:47] LABS: Alanine Aminotransferase 64 U/L (6-35); Albumin Level 2.9 g/dL (3.5-5.1); Alkaline Phosphatase 132 U/L (38-126); Anion Gap 5 mmol/L (4-12); Aspartate Amino Transferase 41 U/L (14-36); Bilirubin,Total 0.5 mg/dL (0.2-1.3); Blood Urea Nitrogen 32 mg/dL (7-17); Calcium 8.5 mg/dL (8.4-10.2); Carbon Dioxide 23 mmol/L (22-30); Chloride 113 mmol/L (98-107); Estimated CRCL calculation 37 ml/min; Estimated Glomerular Filt Rate 37; Glucose 117 mg/dL (65-110); Phosphorus 3.8 mg/dL (2.5-4.5); Potassium 4.6 mmol/L (3.4-5.0); Sodium 141 mmol/L (137-145)
[2024-02-28] MEDS: HEPARIN SODIUM 5,000 UNITS/ML VIAL 5000 UNITS SUB-Q (05:58)
[2024-02-28] MEDS: SODIUM CHLORIDE 0.9% IV 1,000 ML 100 ML IV CONT (06:44)
--- NOTE | 2024-02-28 08:12 | PM.IMPN ---
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 mellitus long term care administrator insulin use: with long term care administrator use Qualified Code(s): E11.9 - Type 2 diabetes mellitus without complications; Z79.4 - skilled nursing (current) use of insulin Code(s): E11.9 - Type 2 diabetes mellitus without complications Status: Acute (3) DKA (diabetic ketoacidosis): Qualifiers: Diabetes mellitus complication detail: without coma Diabetes mellitus type: type 2 Qualified Code(s): E11.10 - Type 2 diabetes mellitus with ketoacidosis without coma Code(s): E11.10 - Type 2 diabetes mellitus with ketoacidosis without coma Status: Acute (4) CHENG (acute kidney injury): Code(s): N17.9 - Acute kidney failure, unspecified Status: Acute (5) UTI (urinary tract infection): Qualifiers: Hematuria presence: without hematuria Urinary tract infection type: acute cystitis Qualified Code(s): N30.00 - Acute cystitis without hematuria Code(s): N39.0 - Urinary tract infection, site not specified Status: Acute Plan 68-year-old female with PMH uncontrolled diabetes, noncompliance with diabetic regimen, CKD, essential hypertension, obesity, hyperlipidemia, history of diastolic dysfunction, JAMES compliant with CPAP, her deficiency anemia comes to the ER complaining of high sugars. For the past 2 weeks she has been feeling sick and not taking her insulin. She has had decreased p.o. intake. Admitted on 02/24/2024 for sepsis DKA and Cheng and CKD along with pneumonia and UTI. DKA DKA has resolved Continue Lantus 40 units q.a.m., aspart 13 units t.i.d., sliding scale glucose level is well controlled UTI Patient has been treated with ceftriaxone since February 23, urine culture: ecoli and blood culture: -ve Changed to Augmentin p.o. Pneumonia Patient has been treated with azithromycin and ceftriaxone since February 23 Quad viral screen negative. Pending urine Legionella and pneumococcal antigen. Completed azithromycin, changed to Augmentin p.o. Acute renal failure on CKD Nephrology has been consulted. Renal ultrasound unremarkable for anything acute. Renal function is improving Received fluid resuscitation, CHENG has resolved, urine creatinine a trending down, creatinine 1.4, below the baseline, GFR 37 Essential hypertension Amlodipine has been increased from 5-10 mg p.o. q.day.. Acute encephalopathy has resolved and was likely due to toxic / metabolic reasons due to DKA pneumonia/UTI. Short of breath Due to multiple comorbidities including pneumonia, JAMES, Lower extremity Dopplers unremarkable. Surface echo current with the EF is 66 5% with abnormal LV diastolic dysfunction. Mild pulmonary hypertension with estimated PA SP of 44 mmHg. D dimer elevated and VQ scan on admission with intermediate probability. would be 1mg/kg qday. risks vs benefits discussed May cause order CTA contrast when GFR continue improved above 30 02/26: Renal function continue to improve, GFR 32, ordered CTA of the chest with PE protocol, start normal saline IV 100 mL/hour for renal protection CT scan showed no PE but revealed pneumonia, changed to heparin 5000 mg q.8 hours No need of DVT prophylaxis shunt after discharge full code Subjective Date/time seen: 02/28/24 08:12 Interval history: I saw examined patient today. Patient feels comfortable, denies short of breath and rest, denies chest pain, abdomen pain, patient is afebrile, blood pressure stable, labs reviewed, kidney continue to improve, GFR 37, BUN creatinine trending down, 32/1.4 Exam Narrative: GENERAL: Pleasant, in
--- NOTE | 2024-02-28 08:15 | PM.DS ---
DS: Admitting Diagnosis Discharge Date 02/27 Admitting Diagnosis (1) Hypertension: Qualifiers: Hypertension type: essential hypertension Qualified Code(s): I10 - Essential (primary) hypertension Code(s): I10 - Essential (primary) hypertension Status: Acute (2) Type 2 diabetes mellitus: Qualifiers: Diabetes mellitus complication status: without complication Diabetes mellitus fpc insulin use: with tank terminal gauger use Qualified Code(s): E11.9 - Type 2 diabetes mellitus without complications; Z79.4 - group home (current) use of insulin Code(s): E11.9 - Type 2 diabetes mellitus without complications Status: Acute (3) DKA (diabetic ketoacidosis): Qualifiers: Diabetes mellitus complication detail: without coma Diabetes mellitus type: type 2 Qualified Code(s): E11.10 - Type 2 diabetes mellitus with ketoacidosis without coma Code(s): E11.10 - Type 2 diabetes mellitus with ketoacidosis without coma Status: Acute (4) CHENG (acute kidney injury): Code(s): N17.9 - Acute kidney failure, unspecified Status: Acute (5) UTI (urinary tract infection): Qualifiers: Hematuria presence: without hematuria Urinary tract infection type: acute cystitis Qualified Code(s): N30.00 - Acute cystitis without hematuria Code(s): N39.0 - Urinary tract infection, site not specified Status: Acute DS: Discharge Diagnosis Discharge Diagnosis (1) Hypertension: Qualifiers: Hypertension type: essential hypertension Qualified Code(s): I10 - Essential (primary) hypertension Code(s): I10 - Essential (primary) hypertension Status: Acute (2) Type 2 diabetes mellitus: Qualifiers: Diabetes mellitus fpc insulin use: with tank terminal gauger use Diabetes mellitus complication status: without complication Qualified Code(s): E11.9 - Type 2 diabetes mellitus without complications; Z79.4 - group home (current) use of insulin Code(s): E11.9 - Type 2 diabetes mellitus without complications Status: Acute (3) DKA (diabetic ketoacidosis): Qualifiers: Diabetes mellitus complication detail: without coma Diabetes mellitus type: type 2 Qualified Code(s): E11.10 - Type 2 diabetes mellitus with ketoacidosis without coma Code(s): E11.10 - Type 2 diabetes mellitus with ketoacidosis without coma Status: Acute (4) CHENG (acute kidney injury): Code(s): N17.9 - Acute kidney failure, unspecified Status: Acute (5) UTI (urinary tract infection): Qualifiers: Hematuria presence: without hematuria Urinary tract infection type: acute cystitis Qualified Code(s): N30.00 - Acute cystitis without hematuria Code(s): N39.0 - Urinary tract infection, site not specified Status: Acute DS: Summary Hospital Course Hospital Course: 68-year-old female with PMH uncontrolled diabetes, noncompliance with diabetic regimen, CKD, essential hypertension, obesity, hyperlipidemia, history of diastolic dysfunction, JAMES compliant with CPAP, her deficiency anemia comes to the ER complaining of high sugars. For the past 2 weeks she has been feeling sick and not taking her insulin. She has had decreased p.o. intake. Admitted on 02/24/2024 for sepsis DKA and Cheng and CKD along with pneumonia and UTI. DKA DKA has resolved Continue Lantus 40 units q.a.m., aspart 13 units t.i.d., sliding scale glucose level is well controlled UTI Patient has been treated with ceftriaxone since February 23, urine culture: ecoli and blood culture: -ve Changed to Augmentin p.o. Pneumonia Patient has been treated with azithromycin and ceftriaxone since February 23 Quad viral screen negative. Pending urine Legionella and pneumococcal antigen. Completed azithromycin, changed to Augmentin p.o. Acute renal failure on CKD Nephrology has been consulted. Renal ultrasound unremarkable for anything acute.
[2024-02-28 08:22] LABS: Glucose Point of Care 104 mg/dl (65-105)
[2024-02-28 08:40] VITALS: PULSE 68
[2024-02-28] MEDS: AMOXICILLIN/CLAVULANATE K 875-125 MG TAB 1 TABLET PO (08:40)
[2024-02-28] MEDS: CHOLECALCIFEROL 1,000 UNITS TABLET 2000 UNITS PO (08:40)
[2024-02-28] MEDS: FERROUS SULFATE 325 MG TABLET DR PO (08:40)
[2024-02-28] MEDS: METOPROLOL SUCCINATE EXT REL 50 MG TABCR PO (08:40)
[2024-02-28] MEDS: INSULIN ASPART (*BKC) 100 UNITS/ML 13 UNITS SUB-Q ×2 (08:41→12:44)
[2024-02-28] MEDS: amLODIPine BESYLATE 5 MG TABLET 10 MG PO (08:41)
[2024-02-28] MEDS: IRBESARTAN 150 MG TABLET PO (08:41)
[2024-02-28] MEDS: PRAVASTATIN SODIUM 10 MG TABLET PO (08:41)
[2024-02-28] MEDS: INSULIN GLARGINE (*BKC) 100 UNITS/ML 40 UNITS SUB-Q (08:42)
--- NOTE | 2024-02-28 11:15 | PM.PNNEP ---
Progress Note: A&P Assessment and Plan (1) JAMIA (acute kidney injury): Code(s): N17.9 - Acute kidney failure, unspecified Status: Acute Assessment and Plan: the patient has acute kidney injury. Her baseline creatinine is around 2 and it was 2.3 on admission. Renal sonogram is unremarkable. A few cysts but nothing acute. urine electrolytes and fractional excretion of urea were non pre renal Creatinine is doing really well at 1.4 The patient's creatinine is lower than her baseline most likely because of low muscle turnover. She has been in bed for the most of the hospital stay. When she is up and around her creatinine generation will increase and the creatinine will probably rise. This is not a function of kidneys but rather input of creatinine into the system. (2) Chronic kidney disease, stage 3b: Code(s): N18.32 - Chronic kidney disease, stage 3b Status: Chronic Assessment and Plan: the patient has chronic kidney disease stage IIIB. This is due to diabetes and hypertension. Her baseline creatinine is around 2. It was this value in October of 2023. She has been at or below her baseline over the last few days. See above discussion (3) Hypertension: Qualifiers: Hypertension type: essential hypertension Qualified Code(s): I10 - Essential (primary) hypertension Code(s): I10 - Essential (primary) hypertension Status: Acute Assessment and Plan: Her blood pressure is still bit high. Systolic is running between 140-176. She was on irbesartan plus metoprolol plus amlodipine on admission. This is what she is on now. Will add indapamide. 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 She is off the drip On Accu-Cheks plus sliding scale insulin. Management per hospitalists. (5) Acute UTI: Code(s): N39.0 - Urinary tract infection, site not specified Status: Acute Assessment and Plan: The patient is getting azithromycin plus ceftriaxone. The former for the pneumonia and the latter for the pneumonia plus the UTI. urine cultures grew E coli on zith and augmentin. (6) Obstructive sleep apnea on CPAP: Code(s): G47.33 - Obstructive sleep apnea (adult) (pediatric); Z99.89 - Dependence on other enabling machines and devices Status: Acute Assessment and Plan: she uses a CPAP religiously Subjective Date/time seen: 02/28/24 11:15 Interval history: Patient is feeling good. She is eager for discharge Exam Narrative: WDWN in NAD skin no rash or subQ nodules head ncat lungs clear bilaterally cor reg no rub or gallop abd BS+ nontender and soft ext no edema or cyanosis. Objective Data Vital Signs Vital Signs: Vital Signs - 24 hr 02/27/24 14:00 02/27/24 20:03 02/27/24 20:40 Temperature 97.4 F L 98.2 F Pulse Rate 64 60 60 Respiratory Rate 24 H 18 18 Blood Pressure 145/58 H 148/56 H Pulse Oximetry 98 99 99 Oxygen Delivery Room Air Fraction of Inspired Oxygen 21 02/27/24 23:35 02/28/24 04:00 02/28/24 08:40 Temperature 98.3 F Pulse Rate 66 64 68 Respiratory Rate 17 Blood Pressure 176/69 H Pulse Oximetry 98 96 Oxygen Delivery CPAP Fraction of Inspired Oxygen 02/28/24 08:35 Temperature Pulse Rate Respiratory Rate Blood Pressure Pulse Oximetry Oxygen Delivery Room Air Fraction of Inspired Oxygen Intake/Output Intake/Output: Intake & Output 02/25/24 02/26/24 02/27/24 02/28/24 23:59 23:59 23:59 23:59 Intake Total 2380 2070 4651.7 1413.3 Output Total 700
[2024-02-28 12:19] LABS: Glucose Point of Care 145 mg/dl (65-105)
[2024-02-28] MEDS: INDAPAMIDE 1.25 MG TABLET PO (12:43)
--- NOTE | 2024-02-28 13:53 | PC.NURSE ---
[facility] pharmacy called stating Novolog is not covered by insurance. Per Dr. Boudreaux, OK to transition to humalog (same dosing). Patient also requesting instead of vials, to have the pens. Verbal order to [facility] pharmacist given per Dr. Boudreaux.
[2024-03-02 02:34] LABS: Legionella pneumophila Ag Ur NOT DETECTED
== END 2024-02-28 14:30 | disposition home or self-care (01) | DRG 871 ==
LOC: ANHED 18:37 → ANHICU 20:01 → ANH2MED 02-25 17:12
PROVIDERS: Internal Medicine; Internal Medicine Nephrology; Admitting Provider Internal Medicine; Emergency Provider Physician Assistant; PCP Family Medicine; Visit Provider Hospitalist
DX: A41.9 Sepsis, unspecified organism (principal); E11.10 Type 2 diabetes mellitus with ketoacidosis without coma; J18.9 Pneumonia, unspecified organism; G93.41 Metabolic encephalopathy; N17.9 Acute kidney failure, unspecified; N39.0 Urinary tract infection, site not specified; B96.20 Unspecified Escherichia coli [E. coli] as the cause of diseases classified elsewhere; Z20.822 Contact with and (suspected) exposure to COVID-19; E66.9 Obesity, unspecified; G47.33 Obstructive sleep apnea (adult) (pediatric); E78.5 Hyperlipidemia, unspecified; I12.9 Hypertensive chronic kidney disease with stage 1 through stage 4 chronic kidney disease, or unspecified chronic kidney disease; E11.22 Type 2 diabetes mellitus with diabetic chronic kidney disease; N18.32 Chronic kidney disease, stage 3b; E86.0 Dehydration; Z79.4 Long term (current) use of insulin; Z68.38 Body mass index [BMI] 38.0-38.9, adult; Z91.199 Patient's noncompliance with other medical treatment and regimen due to unspecified reason
CPT/HCPCS: 36415; 36600; 70450; 71046; 71250; 71275; 76775; 78582; 80048; 80053; 80069; 81001; 82010; 82306; 82375; 82550; 82570; 82805; 82948; 83036; 83050; 83605; 83735; 83970; 84100; 84156; 84300; 84439; 84443; 84480; 84484; 84540; 85025; 85027; 85380; 85610; 85730; 87040; 87077; 87086; 87088; 87186; 87449; 87637; 87641; 87899; 93005; 93970; 96365; 96366; 96367; 96368; 96372; 96375; 99212; 99285; A9270; A9540; A9558; C8929; G0378; G0463; J0456; J0696; J1644; J1650; J1815; J3480; J7030; J7120; Q9957; Q9967

== ENCOUNTER 2024-03-31 15:13 | Outpatient (CLI) | payer OTHER, SELFPAY ==
[2024-03-31 20:21] LABS: Anion Gap 10 mmol/L (4-12); Blood Urea Nitrogen 42 mg/dL (7-17); Calcium 9.1 mg/dL (8.4-10.2); Carbon Dioxide 23 mmol/L (22-30); Chloride 106 mmol/L (98-107); Estimated Glomerular Filt Rate 30; Glucose 100 mg/dL (65-110); Potassium 5.3 mmol/L (3.4-5.0); Sodium 139 mmol/L (137-145)
== END 2024-03-31 15:14 | disposition home or self-care (01) ==
LOC: ANHGOSHLAB 15:14
PROVIDERS: PCP Family Medicine; Visit Provider Internal Medicine Nephrology
DX: N18.32 Chronic kidney disease, stage 3b (principal)
CPT/HCPCS: 36415; 80048

== ENCOUNTER 2024-04-14 10:30 | Outpatient (RCR) | payer OTHER, SELFPAY | END 2024-06-14 10:22 | disposition home or self-care (01) | LOC: ANHDMC 10:30 | PROVIDERS: PCP Family Medicine; Visit Provider Family Medicine | DX: E11.9 Type 2 diabetes mellitus without complications (principal); Z79.4 Long term (current) use of insulin; Z71.89 Other specified counseling | CPT/HCPCS: 95249; G0108 ==

== ENCOUNTER 2024-04-20 12:47 | Outpatient (CLI) | payer OTHER, SELFPAY ==
[2024-04-20 19:45] LABS: Albumin Level 3.7 g/dL (3.5-5.1); Anion Gap 10 mmol/L (4-12); Blood Urea Nitrogen 30 mg/dL (7-17); Calcium 9.2 mg/dL (8.4-10.2); Carbon Dioxide 25 mmol/L (22-30); Chloride 104 mmol/L (98-107); Estimated Glomerular Filt Rate 32; Glucose 82 mg/dL (65-110); Phosphorus 3.6 mg/dL (2.5-4.5); Potassium 4.6 mmol/L (3.4-5.0); Sodium 139 mmol/L (137-145)
== END 2024-04-20 12:48 | disposition home or self-care (01) ==
LOC: ANHGOSHLAB 12:49
PROVIDERS: PCP Family Medicine; Visit Provider Internal Medicine Nephrology
DX: N18.32 Chronic kidney disease, stage 3b (principal)
CPT/HCPCS: 36415; 80069

== ENCOUNTER 2024-07-01 14:28 | Outpatient (CLI) | payer OTHER, SELFPAY ==
[2024-07-01 18:51] LABS: Basophils Absolute Auto 0.1 K/mm3 (0.0-0.1); Eosinophils Absolute Auto 0.2 K/mm3 (0-0.3); Eosinophils Percent Auto 1.5 % (0-4.4); Hematocrit 31.9 % (37.0-47.0); Hemoglobin 10.3 g/dL (12.0-15.0); Immature Granulocyte Absolute 0.04 K/mm3 (0.00-0.031); Immature Granulocyte Percent A 0.3 % (0-0.5); Lymphocytes Absolute Auto 2.17 K/mm3 (0.9-3.2); Mean Corpuscular HGB Conc 32.3 g/dl (32-36); Mean Corpuscular Volume 102.2 fl (80-100); Mean Platelet Volume 11.3 fl (7.4-10.4); Monocytes Absolute Auto 0.9 K/mm3 (0.1-0.6); Monocytes Percent Auto 7.9 % (2.6-8.5); Neutrophils Percent Auto 70.3 % (45.5-73.1); Platelet Count Result 296 k/mm3 (150-375); Red Blood Count 3.12 M/mm3 (4.2-5.4); White Blood Count 11.5 K/mm3 (4.5-10.0)
[2024-07-01 19:33] LABS: Anion Gap 8 mmol/L (4-12); Blood Urea Nitrogen 43 mg/dL (7-17); Calcium 8.9 mg/dL (8.4-10.2); Carbon Dioxide 23 mmol/L (22-30); Chloride 109 mmol/L (98-107); Estimated Glomerular Filt Rate 23; Glucose 129 mg/dL (65-110); Potassium 4.7 mmol/L (3.4-5.0); Sodium 140 mmol/L (137-145)
[2024-07-01 21:09] LABS: Hemoglobin A1C 6.3 % (<5.7)
== END 2024-07-01 14:29 | disposition home or self-care (01) ==
LOC: ANHGOSHLAB 14:29
PROVIDERS: PCP Family Medicine; Visit Provider Family Medicine
DX: R53.83 Other fatigue (principal); Z13.228 Encounter for screening for other metabolic disorders; E11.9 Type 2 diabetes mellitus without complications
CPT/HCPCS: 36415; 80048; 83036; 85025

== ENCOUNTER 2024-07-27 15:15 | Outpatient (CLI) | payer OTHER, SELFPAY ==
[2024-07-27 19:35] LABS: Albumin Level 3.4 g/dL (3.5-5.1); Anion Gap 6 mmol/L (4-12); Blood Urea Nitrogen 47 mg/dL (7-17); Calcium 8.5 mg/dL (8.4-10.2); Carbon Dioxide 21 mmol/L (22-30); Chloride 111 mmol/L (98-107); Estimated Glomerular Filt Rate 20; Glucose 191 mg/dL (65-110); Phosphorus 5.2 mg/dL (2.5-4.5); Potassium 4.1 mmol/L (3.4-5.0); Sodium 138 mmol/L (137-145)
[2024-07-27 19:40] LABS: Parathyroid Intact 172.9 pg/mL (14.5-75.2)
[2024-07-27 22:05] LABS: Creatinine Urine 77.9 mg/dL
[2024-07-27 23:31] LABS: Total Protein Urine Random > 600 mg/dL; Ur Ttl Prot Creatinine Ratio > 7.70 mg/mg (0-0.20)
== END 2024-07-27 15:16 | disposition home or self-care (01) ==
LOC: ANHGOSHLAB 15:17
PROVIDERS: PCP Family Medicine; Visit Provider Internal Medicine Nephrology
DX: N18.32 Chronic kidney disease, stage 3b (principal)
CPT/HCPCS: 36415; 80069; 82570; 83970; 84156

== ENCOUNTER 2024-10-07 12:48 | Outpatient (CLI) | payer MEDICARE, SELFPAY ==
--- OUTSIDE RECORDS SUMMARY | 2024-10-07 13:38 | XMS_ITS | Clinical Summary ---
Author Organization [facility] Address [address] [place] [id number] Care Team Providers Care Visual And Stock Associate Name Role Phone Anisha Lyle HOSKINS Primary Care Provider [phone] Allergies No known active allergies Medications ferrous sulfate 325 mg (65 mg of elemental iron) tabletIndicatio ns:Iron Deficiency Anemia Take 1 tablet (325 mg total) by mouth daily with breakfast Active furosemide (LASIX) 40 mg tablet Take 1 tablet (40 mg total) by mouth 2 (two) times a day Active insulin lispro (HumaLOG) 100 unit/mL cartridge Inject under the skin Active insulin glargine (LANTUS,BASAGLA R) 100 unit/mL (3 mL) insulin pen Active metoprolol XL (TOPROL-XL) 100 mg 24 hr tablet Take 1 tablet (100 mg total) by mouth daily Active spironolactone (ALDACTONE) 25 mg tablet Take 1 tablet (25 mg total) by mouth daily Active aspirin 325 mg tablet Take 1 tablet (325 mg total) by mouth daily Active amLODIPine (NORVASC) 10 mg tablet Take 1 tablet (10 mg total) by mouth daily Active brimonidine (ALPHAGAN P) 0.1 % drops Administer 1 drop into the left eye 3 (three) times a day 10 mL 3 2 Active nitrofurantoin (MACRODANTIN) 50 mg capsule TAKE 1 CAPSULE BY MOUTH EVERY DAY AT BEDTIME 3 Active pravastatin (PRAVACHOL) 10 mg tablet Take 1 tablet (10 mg total) by mouth daily 3 Active Trulicity 1.5 mg/0.5 mL pen injector ADMINISTER 1.5 MG UNDER THE SKIN WEEKLY 3 Active trospium (SANCTURA) 20 mg tablet Take 1 tablet (20 mg total) by mouth 2 (two) times a day 3 Active irbesartan (AVAPRO) 150 mg tablet Take 1 tablet (150 mg total) by mouth every morning 4 Active Active Problems Problem Noted Date Diagnosed Date 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 There is no central macular edema in either eye. We have discussed the results with diabetic retinopathy clinical research network studies. Raven Can follow with optometry Assessment & Plan (08/19/2023 11:33 AM UNLEAVENED DOUGH MIXER): OD noncrntral edema almost resolved OS last inj IVO in December 2022 with dramatic improvement in DME DRCR discussed Assessment & Plan (12/31/2022 11:24 AM CDT): Last SUN 01/2022 Last ozurdex 08/2022 Now 4 months since last ozurdex with worsened edema and subjectively worse vision left eye (OS). IOP controlled on alphagan TID OS Consider repeat IVO OS today but will bring backhoe operator at 1-2 months to assess response. Assessment & Plan (08/20/2022 8:55 AM UNLEAVENED DOUGH MIXER): Last SUN 01/2022 Last ozurdex 04/2022 Now 4 months since last ozurdex with worsened edema although vision slightly improved - she does note mild symptoms OS IOP controlled on alphagan BID OS Consider IVO OS today Assessment & Plan (04/10/2022 2:52 PM CDT): She she had an Eylea injection in January and dexamethasone injection in November 2021. She has responded well to the dexamethasone injection as such we will do an intravitreal injection with ozurdex today Borderline IOP will treat with alphagan OS TID as possible steroid response Assessment & Plan (01/15/2022 8:26 AM CDT): status post (s/p) IVO in Nov 2021 with good response but persistent CME ; h/o underresponsiveness to antiVEGF, will consider Eylea today for possible synergistic effect on CME Assessment & Plan (11/20/2021 7:51 AM CDT): The edema in the right eye has slightly worsened but is extra foveal and superotemporal. We will continue to monitor this for now given her excellent vision. If it worsens we can always do focal laser photocoagulation. The edema in the left eye has worsened with now new subretinal fluid as well as cystic edema. Given the under responsiveness to anti VEGF pharmacotherapy I am recommending intravitreal steroids. She has used topical steroids in the past after cataract surgery without incidence. Assessment & Plan (09/11/2021 9:07 AM UNLEAVENED DOUGH MIXER): OD stable with minimal NCI-DME OS with persistent CI-DME s/p focal 05/22/21 and now 7 week s/p DESTINY for DME. Also received focal laser OS prior to last inj Consider repeat DESTINY OS today Assessment & Plan (07/24/2021 8:50 AM UNLEAVENED DOUGH MIXER): Hx of antiVEGF both eyes (OU) in [place] OD: trace noncentral DME with great vision. Rec cont observation. OS: s/p focal 05/22/21. Worsened center-involved DME. Recommend anti-VEGF injection. Assessment & Plan (05/01/2021 9:13 AM CDT): Hx of antiVEGF both eyes (OU) in [place] Stable mild non-proliferative diabetic retinopathy (NPDR) with DME. Vision remains 20/20 both eyes (OU) today. Noncentral DME left eye (OS) slightly worse from prior - consider observation vs. Focal laser. Discussed ETDRS and antivegf studies May need injections in the future Assessment & Plan (01/16/2021 8:52 AM CDT): Patient maintains excellent vision. Discussed protocol V with patient, and she is in agreement with observation as she notices no change or blurriness in her vision. F/u 2-3 months for DFE, OCT OU Assessment & Plan (11/07/2020 9:12 AM UNLEAVENED DOUGH MIXER): Discussed with patient Protocol V discussed Assessment & Plan (10/10/2020 11:57 AM UNLEAVENED DOUGH MIXER): Previously managed by Dr. Domingo Hernandez in [place] DME OU. Treated with DESTINY q8w OD and SUN q4w OS. Previously on OS Avastin but had better response with Eylea. Last injections 09/12/20 (DESTINY OD, SUN OS). OD with noncentral fluid, OS with some central cysts. Patient with great vision, and does not recall significant blurred vision with worsening fluid in the past. Discussed possible VMT component and Protocol V, and patient elects to monitor today without therapy. Noted silicone bubbles in vitreous Will recheck in 1 month. 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 Rashad Godoy CATARACT EXTRACTION 08/10/[address] Rashad Godoy Medical History Medical History Date Comments Hypertension Diabetes mellitus (HCC) Chronic kidney disease Diabetic retinopathy (HCC) Family History Medical History Relation Name Comments Diabetes Father Hypertension Father Cancer Mother Glaucoma Neg Hx Macular degeneration Neg Hx Relation Name Status Comments Father Mother Social History Tobacco Use Types Packs/Day Years Used Date Smoking Tobacco: Never Smokeless Tobacco: Never Personal Safety Answer Date Recorded Getting School Help Needed Not on file 08/19 Comments Unknown Sex and Gender Information Value Date Recorded Sex Assigned at Not on file Legal Sex Female 9:11 AM UNLEAVENED DOUGH MIXER Gender Identity Not on file Sexual Orientation Not on file Obstetrics History Plan of Treatment Health Maintenance Due Date Last Done Comments Albumin Creatinine Ratio, Urine 1954 Breast Cancer Screening-Mammogram 1954 Colon Cancer Screening-Colonoscopy 1954 Depression Screening 1954 Fall Risk Assessment 1954 Hemoglobin A1C 1954 Hepatitis C Screening 1954 Osteoporosis Screening-Bone Density Scan 1954 eGFR 1954 Foot Exam 1954 Lipid Panel 1954 Hepatitis B Screening 1972 DTaP/Tdap/Td Vaccine (1 - Tdap) 03/03/2002 2 Pneumococcal vaccine 65+ (2 of 2 - PPSV23 or PCV20) 04/27/2002 03/02/2002 Zoster Vaccine (1 of 2) 2004 Well Visit 65+ 2019 Influenza Vaccine (#1) 2024 , 06/08/2021, 07/25/2003 Dilated Eye Exam 04/06/2025 04/06/2024, , 04/10/2022, Additional history exists Insurance [employer] OPEN ACCESS Care Teams Visual And Stock Associate Relationship Specialty Start Date End Date Lyle Lancaster DO PCP - General Family Medicine 11/09/21
--- OUTSIDE RECORDS SUMMARY | 2024-10-07 13:38 | XMS_ITS | Clinical Summary ---
Author Organization [facility] Address [address] [place] [phone] Phone Care Team Providers Care Master Fire Control Technician Name Role Phone Terence Herrera MD Primary Care Provider [phone] Allergies No known active allergies Medications Medication Sig Dispensed Refills Start Date End Date Status atorvastatin (LIPITOR) 40 MG tablet Take 40 mg by mouth daily Active ferrous sulfate 325 (65 Fe) MG tablet Take by mouth daily Active furosemide (LASIX) 40 MG tablet Take 40 mg by mouth 2 times daily Active glucose blood (OneTouch Ultra) test strip 12/27/2015 Active insulin glargine (LANTUS) 100 UNIT/ML injection Inject 55 Units under the skin Active insulin lispro (HumaLOG) 100 UNIT/ML injection Inject under the skin Active Insulin Pen Needle (BD ULTRA-FINE PEN NEEDLES) 29G X 12.7MM misc 12/27/2015 Active metoprolol succinate XL (TOPROL-XL) 100 MG 24 hr tablet Take 100 mg by mouth daily Active amLODIPine (NORVASC) 10 MG tablet Take 10 mg by mouth 1 (one) time each day Active aspirin 81 MG chewable tablet Chew 81 mg 1 (one) time each day Active Alphagan P 0.1 % ophthalmic solution INSTILL 1 DROP IN LEFT EYE THREE TIMES DAILY 04/13/2022 Active losartan-hydroCHLOROth iazide (HYZAAR) 100-25 MG per tablet Take 1 tablet by mouth 1 (one) time each day Active Active Problems Problem Noted Date Diagnosed Date Chronic kidney disease stage 3B 11/05/2021 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 She has responded well to the dexamethasone injection as such we will do an intravitreal injection with ozurdex today Borderline IOP will treat with alphagan OS TID as possible steroid response Congestive heart failure 07/18/2015 Diabetes mellitus 12/23/2007 Hypertension 12/23/2007 Immunizations Name Administration Dates Next Due Influenza TIV (IM) 06/08/2021 Influenza, Unspecified 07/25/2003 Pneumococcal Conjugate 13-Valent 03/02/2002 Td, Unspecified 03/02/2002 Family History Medical History Relation Comments Hypertension Father Relation Status Comments Father Social History Tobacco Use Types Packs/Day Years Used Date Smoking Tobacco: Never Smokeless Tobacco: Never Alcohol Use Standard Drinks/Week Comments Yes 0 (1 standard drink = 0.6 oz pur e alcohol) 1 per month Sex and Gender Information Value Date Recorded Sex Assigned at Not on file Gender Identity Not on file Sexual Orientation Not on file Last Filed Vital Signs Vital Sign Reading Time Taken Comments Blood Pressure 162/80 06/26/2022 9:38 AM CDT Pulse 72 06/26/2022 9:38 AM CDT Temperature 35.5 ??C (95.9 ??F) 06/26/2022 9:38 AM CD T Respiratory Rate - - Oxygen Saturation - - Inhaled Oxygen Concentration - - Weight 106 kg (233 lb) 06/26/2022 9:38 AM CDT Height 157.5 cm (5' 2 ) 06/26/2022 9:38 AM CDT Body Mass Index 42.62 06/26/2022 9:38 AM CDT Plan of Treatment Health Maintenance Due Date Last Done Comments Diabetic Foot Exam 1965 Pneumococcal PPSV23/PCV13 65 + Years / High and Highest Risk (2 of 4 - PPSV23 or PCV20) 04/27/2002 03/02/2002 Ophthalmology Exam 05/01/2022 05/01/2021 Influenza Vaccine (#1) 2024 06/08/2021, 2002 Care Teams Master Fire Control Technician Relationship Specialty Start Date End Date Terence Herrera MD [address] [place] [address] PCP - General Family Medicine 10/08/21
--- OUTSIDE RECORDS SUMMARY | 2024-10-07 13:38 | XMS_ITS | Referral Summary ---
Author Organization [facility] Address [address] [place] [address] Care Team Providers Care Night Shift Name Role Phone FemiRandy jones Primary Care Provider + Source Comments [facility],non-owned Affiliates and Associated Physician Practices is amultiple site organization consisting of ambulatory clinics and hospital sitesin [place], [place], [place] and [place]. This disclosure is being madepursuant to the Care Everywhere program and may not contain all information available regarding this patient. Last updated 18.[facility] Allergies No known active allergies Medications * Be aware that medications may not be up to date on this document. Alwaysverify current medications with the patient. Medication Sig Dispensed Refills Start Date End Date Status AVAPRO 150 MG tablet Take 1 Tab by mouth daily. Active ZOCOR 40 MG tablet Take 1 Tab by mouth daily. Active glimepiride (AMARYL) 4 MG tablet Take 1 Tab by mouth 2 times daily. Active MULTI-VITAMIN PO Take 1 Tab by mouth daily. Active rosiglitazone-metformin (AVANDAMET) 4-1000 MG tablet Take 1 Tab by mouth 2 times daily. 60 2 01/25/2008 Active metoprolol succinate XL 24hr (TOPROL XL) 200 MG tablet Take 1 Tab by mouth daily. 30 1 02/06/2008 Active Active Problems Problem Noted Date Diagnosed Date Hypertension 12/23/2007 Type II or unspecified type diabetes mellitus without mention of complication, not stated as uncontrolled 12/23/2007 Screening for cervical cancer 12/23/2007 Overview (12/23/2007): 02/10 Other screening mammogram 12/23/2007 Overview (12/23/2007): 06/13 Immunizations Name Administration Dates Next Due INFLUENZA VACCINE 07/25/2003 Pneumococcal 03/02/2002 TD VACCINE 03/02/2002 Social History Tobacco Use Types Packs/Day Years Used Date Smoking Tobacco: Never Alcohol Use Standard Drinks/Week Comments No 0 (1 standard drink = 0.6 oz pur e alcohol) Sex and Gender Information Value Date Recorded Sex Assigned at Not on file Gender Identity Not on file Sexual Orientation Not on file Plan of Treatment Not on file Procedures Procedure Name Priority Date/Time Associated Diagnosis Comments MICROALB/CREAT RATIO URINE RANDOM PANEL 12/25/2007 8:59 AM CDT BASIC METABOLIC PANEL (CALCIUM TOTAL) 12/25/2007 8:59 AM CDT HEMOGLOBIN A1C 12/25/2007 8:59 AM CDT from Last 3 Months or Most Recently Relevant to Health Maintenance Results * MICROALB/CREAT RATIO URINE RANDOM PANEL (12/25/2007 8:59 AM CDT) Creatinine Urine 58 20 - 320 mg/dL [facility] Comment: Test Performed at: [facility] [address] [place], [place] ??[phone] ANTHONY PARKER MD Microalbumin Urine 0.7 mg/dL [facility] Comment: REFERENCE RANGE NOT ESTABLISHED ?? Test Performed at: [facility] [address] [place], [place] ??[phone] ANTHONY PARKER MD Microalbumin/Crea tinine Ratio 12 <30 mcg/mg creat [facility] Comment: THE ADA (DIABETES CARE 26:S94-S98, 2003) DEFINES ABNORMALITIES IN ALBUMIN EXCRETION FOLLOWS: CATEGORY ? RESULT (MCG/MG CREATININE) NORMAL ?<30 MICROALBUMINURIA ? 30-299 CLINICAL ALBUMINURIA ?? > OR = 300 THE ADA RECOMMENDS THAT AT LEAST TWO OF THREE SPECIMENS COLLECTED WITHIN A 3-6 MONTH PERIOD BE ABNORMAL BEFORE CONSIDERING A PATIENT TO BE WITHIN A DIAGNOSTIC CATEGORY. 12/25/2007 8:59 AM CDT 12/26/2007 12:15 AM CDT Randy Martinez DO LAB - URINE CHEM ISTRY ORDERABLES Performing Organization Address [facility] Co de Phone Number [facility] [address] [place] [address] * (ABNORMAL) HEMOGLOBIN A1C (12/25/2007 8:59 AM CDT) Hemoglobin A1c 6.4(H) % of total Hgb [facility] Comment: NON-DIABETIC: <6.0% REPORT COMMENT: FASTING Test Performed at: [facility] [place], [place] ??[phone] ANTHONY PARKER MD 12/25/2007 8:59 AM CDT 12/26/2007 12:15 AM CDT Randy Martinez DO LAB - CHEMISTRY ORDERABLES Performing Organization Address [facility] de Phone Number [facility] [id number] [place] [address] * (ABNORMAL) BASIC METABOLIC PANEL (CALCIUM TOTAL) (12/25/2007 8:59 AM CDT) Glucose 106(H) 65 - 99 mg/dL [facility] Comment:FASTING REFERENCE IN TERVAL BUN 14 7 - 25 mg/dL [facility] Creatinine 0.70 0.50 - 1.20 mg/dL [facility] eGFR by MDRD >60 > OR = 60 mL/min/1.7 3m2 [facility] eGFR by MDRD >60 > OR = 60 mL/min/1.7 3m2 [facility] BUN/Creatinine Ratio 20 6 - 22 (calc) [facility] Sodium 140 135 - 146 mmol/L [facility] Potassium 4.6 3.5 - 5.3 mmol/L [facility] Chloride 105 98 - 110 mmol/L [facility] CO2 25 21 - 33 mmol/L [facility] Calcium 9.3 8.6 - 10.2 mg/dL [facility] Comment: Test Performed at: [facility] [address] [place], [place] ??[phone] ANTHONY PARKER MD 12/25/2007 8:59 AM CDT 12/26/2007 12:15 AM CDT Randy Martinez DO LAB - CHEMISTRY ORDERABLES [facility] [id number] [place] [address] from Last 3 Months or Most Recently Relevant to Health Maintenance Care Teams Night Shift Relationship Specialty Start Date End Date Randy Martinez DO [address] [place] [id number] PCP - General 12/23/07
--- OUTSIDE RECORDS SUMMARY | 2024-10-07 13:38 | XMS_ITS | Referral Summary ---
Author Organization [facility] Address [address] [place] [address] Care Team Providers Care Inside Sales Lead Name Role Phone Ansiha Lyle HOSKINS Primary Care Provider [phone] Allergies No known active allergies Medications ferrous [...] optometry Assessment & Plan (08/19/2023 11:33 AM IN SHOP SERVICE TECHNICIAN): OD noncrntral edema almost resolved OS last inj IVO in December 2022 with dramatic improvement in DME DRCR discussed Assessment & Plan (12/31/2022 11:24 AM CDT): Last SUN 01/2022 Last ozurdex 08/2022 Now 4 months since last ozurdex with worsened edema and subjectively worse vision left eye (OS). IOP controlled on alphagan TID OS Consider repeat IVO OS today but will bring vest backer at 1-2 months to assess response. Assessment & Plan (08/20/2022 8:55 AM IN SHOP SERVICE TECHNICIAN): Last SUN 01/2022 Last ozurdex 04/2022 Now [...] incidence. Assessment & Plan (09/11/2021 9:07 AM IN SHOP SERVICE TECHNICIAN): OD stable with minimal NCI-DME OS with persistent CI-DME s/p focal 05/22/21 and now 7 week s/p DESTINY for DME. Also received focal laser OS prior to last inj Consider repeat DESTINY OS today Assessment & Plan (07/24/2021 8:50 AM IN SHOP SERVICE TECHNICIAN): Hx of antiVEGF both eyes (OU) in [place] OD: trace noncentral DME with great vision. Rec cont observation. OS: s/p focal 05/22/21. Worsened center-involved DME. Recommend anti-VEGF injection. Assessment & Plan (05/01/2021 9:13 AM CDT): Hx of antiVEGF both eyes (OU) in [place] Stable mild non-proliferative diabetic retinopathy (NPDR) with [...] OU Assessment & Plan (11/07/2020 9:12 AM IN SHOP SERVICE TECHNICIAN): Discussed with patient Protocol V discussed Assessment & Plan (10/10/2020 11:57 AM IN SHOP SERVICE TECHNICIAN): Previously managed by Dr. Domingo Hernandez in [place] DME OU. Treated with DESTINY q8w OD [...] time Assessment & Plan (10/10/2020 11:56 AM IN SHOP SERVICE TECHNICIAN): Discussed with patient May contribute to DME Social History Tobacco Use Types Packs/Day Years Used Date Smoking Tobacco: Never Smokeless Tobacco: Never Personal Safety Answer Date Recorded Getting School Help Needed Not on file 08/19 Comments Unknown Sex and Gender Information Value Date Recorded Sex Assigned at Not on file Legal Sex Female 9:11 AM IN SHOP SERVICE TECHNICIAN Gender Identity Not on file Sexual Orientation Not on file Plan of Treatment Not on file Insurance [employer] [place] [address] Care Teams Inside Sales Lead Relationship Specialty Start Date End Date Lyle Lancaster DO PCP - General Family Medicine 11/09/21
--- OUTSIDE RECORDS SUMMARY | 2024-10-07 13:38 | XMS_ITS | Clinical Summary ---
Author Organization [facility] Address [address] [facility] [place] [address] Care Team Providers Care Wellness Instructor Name Role Phone Jose RamonRandy mcdonnell Primary Care Provider + Source Comments [facility],non-owned Affiliates and Associated Physician Practices is amultiple site organization consisting of ambulatory clinics and hospital sitesin [place], [place], [place] and [place]. This disclosure is being madepursuant to the Care Everywhere program and may not contain all information available regarding this patient. Last updated 18.[employer] Allergies No known active allergies Medications * [...] VACCINE 07/25/2003 Pneumococcal 03/02/2002 TD VACCINE 03/02/2002 Family History Medical History Relation Name Comments Arthritis Father Cancer Father breast cancer Diabetes Father Heart Disease Father Diabetes Mother Relation Name Status Comments Father Mother Social History Tobacco Use Types Packs/Day Years Used Date Smoking Tobacco: Never Alcohol Use Standard Drinks/Week Comments No 0 (1 standard drink = 0.6 oz pur e alcohol) Sex and Gender Information Value Date Recorded Sex Assigned at Not on file Gender Identity Not on file Sexual Orientation Not on file Plan of Treatment Health Maintenance Due Date Last Done Comments BONE DENSITY TESTING 1955 COLOGUARD (AGES 45-75) - COL ON CA SCREENING 1954 COLON MONITORING 1954 COLONOSCOPY - COLON CA SCREENING 1954 CT COLONOGRAPHY - COLON CA SCREENING 1955 Colorectal Cancer Screening 1954 FIT - COLON CA SCREENING 1954 FLEX SIG - COLON CA SCREENING 1955 MAMMOGRAM 1954 HEPATITIS C SCREENING 05/03/1972 PNEUMOCOCCAL VACCINE 50+ (1 of 2 - PCV) 1973 ZOSTER VACCINE (1 of 2) 2004 DIABETES-SERUM CREATININE 12/24/20082007, 05/29/2007 DTAP/TDAP/TD VACCINES (2 - T d or Tdap) 03/02/2012 03/02/2002 DIABETES RETINOPATHY SCREENING 08/23/2021 DIABETES-FOOT EXAM WITH MONOFILAMENT 08/23/2021 DIABETES-HGB A1C 08/23/2021 12/25/2007, 05/29/2007 COVID-19 VACCINE (3 - 2023-2 5 season) 2024 12/24/2020, 11/28/2020 INFLUENZA VACCINE (#1) 2024 07/25/2003 DEPRESSION SCREENING 09/08/2024 DIABETES - URINE PROTEIN SCREENING 09/08/2024 12/25/2007, 05/29/2007 Respiratory Syncytial Virus (RSV) Vaccine Pt: or over 60 yrs (1 - 1-dose 75+ series) 2029 HEPATITIS B VACCINE Aged Out No longe r eligible based on patient's age to complete this topic HIB VACCINE Aged Out No longer eligi ble based on patient's age to complete this topic HPV VACCINE Aged Out No longer eligi ble based on patient's age to complete this topic MENINGOCOCCAL (Group B) VACCINE Aged Out No longer eligible b ased on patient's age to complete this topic MENINGOCOCCAL VACCINE Aged Out No chaitanya shane eligible based on patient's age to complete this topic Procedures Procedure Name Priority Date/Time Associated Diagnosis [...] 320 mg/dL [facility] Comment: Test Performed at: [employer] [place], [place] ??[phone] ANTHONY PARKER MD Microalbumin Urine 0.7 mg/dL [facility] Comment: REFERENCE RANGE NOT ESTABLISHED ?? Test Performed at: [employer] [place], [place] ??[phone] ANTHONY PARKER MD Microalbumin/Crea tinine Ratio 12 [...] URINE CHEM ISTRY ORDERABLES Performing Organization Address [facility] de Phone Number [facility] [address] [place] [address] * (ABNORMAL) HEMOGLOBIN A1C (12/25/2007 8:59 AM CDT) Hemoglobin A1c 6.4(H) % of total Hgb [facility] Comment: NON-DIABETIC: <6.0% REPORT COMMENT: FASTING Test Performed at: [email or web address] [address] [place], [place] ??[phone] ANTHONY PARKER MD 12/25/2007 8:59 AM CDT 12/26/2007 12:15 AM CDT Randy Martinez DO LAB - CHEMISTRY ORDERABLES Performing Organization Address [facility] de Phone Number [facility] [address] [place] [address] * (ABNORMAL) BASIC METABOLIC PANEL (CALCIUM TOTAL) [...] 10.2 mg/dL [facility] Comment: Test Performed at: [facility] [address] [place], [place] ??[phone] ANTHONY PARKER MD 12/25/2007 8:59 AM CDT 12/26/2007 12:15 AM CDT Randy Martinez DO LAB - CHEMISTRY ORDERABLES Performing Organization Address [facility] de Phone Number [facility] [address] [place] [phone] from Last 3 Months or Most Recently Relevant to Health Maintenance Care Teams Wellness Instructor Relationship Specialty Start Date End Date Randy Matrinez DO [address] [place] [id number] PCP - General 12/23/07
--- OUTSIDE RECORDS SUMMARY | 2024-10-07 13:38 | XMS_ITS | Continuity of Care Document ---
Author Organization [facility] C Address [address] [place] [address] Phone Care Team Providers Care Psychological Operations Officer Name Role Phone Domingo Hernandez MD Unavailable Unavailable Allergies, Adverse Reactions, Alerts Substance Reaction Status Criticality No Known Allergies Active No Inform ation Medications Medication Instructions Dosage Effective Dates (start - stop) Status Comments Januvia 100 mg tablet take 1 tablet by o ral route every day 100 MG - Active furosemide 40 mg tablet take 1 tablet by oral route every day 40 MG - Active atorvastatin 40 mg tablet take 1 tablet by oral route every day 40 MG - Active ferrous sulfate 325 mg (65 mg iron) tablet take 1 tablet by oral route every day 325 MG - Active Humalog 100 unit/mL subcutaneous [...] route every day 25 MG - Active Procedures Procedure Date OCT [...] TREATMENT OCT Scan Retina MEDICAL EYE EXAM, SUPERVISOR SUNGLASSES OCT Scan Retina Advance Directives Directive Yes / No Effective Date File Name No Information Encounters Encounter Description Practice Location Reason(s) For Visit Diagnoses Date Provider Providers Copied on Encounter [facility], [address], [place], [id number], [place] tel:[phone] [facility] DM w/ mac edema (chief complaint) DM, type 2, mild background retinopathy w/ macular edema, bilateralPost erior Capsule Opacification , left eye Hardy- [address], [place], [id number], [place]. tel:[phone] [facility], [address], [place], [id number], [place] tel:[phone] [facility] DM with DR and Edema (chief complaint) DM, type 2, mild background retinopathy w/ macular edema, bilateral Dec-[address], [place], [id number], [place]. tel:[phone] [facility], [address], [place], [id number], [place] tel:[phone] [facility] Dm with DR and edema (chief complaint) DM, type 2, mild background retinopathy w/ macular edema, bilateral Nov- 0- [address], [place], [id number], [place]. tel:[phone] [facility], [address], [place], [id number], [place] tel:[phone] [facility] decreased vision (chief complaint) DM, type 2, mild background retinopathy w/ macular edema, bilateral Oct-[address], [place], [id number], [place]. tel:[phone] [facility], [address], [place], [id number], [place] tel:[phone] [facility] DM with mild DR and macular edema (chief complaint) DM, type 2, mild background retinopathy w/ macular edema, bilateral Sep-[address], [place], [id number], [place]. tel:[phone] [facility], [address], [place], [id number], [place] tel:[phone] [facility] diabetic eye exam (chief complaint) DM, type 2, mild background retinopathy w/ macular edema, bilateralPost erior Capsule Opacification , left eye Mar- [address], [place], [id number], [place]. tel:[phone] [facility], [address], [place], [id number], [place] tel:[phone] [facility] DM (chief complaint) DM, type 2, mild background retinopathy w/ macular edema, bilateralPost erior Capsule Opacification , left eye [address], [place], [id number], [place]. tel:[phone] [facility], [address], [place], [id number], [place] tel:[phone] [facility] DM w/ mac edema (chief complaint) DM, type 2, mild background retinopathy w/ macular edema, bilateral Nov- [address], [place], [id number], [place]. tel:[phone] [facility], [address], [place], [id number], [place] tel:[phone] [facility] DME (chief complaint) DM, type 2, mild background retinopathy w/ macular edema, bilateral Feb-[address], [place], [id number], [place]. tel:[phone] [facility], [address], [place], [id number], [place] tel:[phone] [facility] DM, type 2, mild background retinopathy w/ macular emeka (chief complaint) DM, type 2, mild background retinopathy w/ macular edema, bilateral Dec-[address], [place], [id number], [place]. tel:[phone] [facility], [address], [place], [id number], [place] tel:[phone] [facility] diabetic eye exam (chief complaint) DM, type 2, mild background retinopathy w/ macular edema, bilateral Jul- [address], [place], [id number], [place]. tel:[phone] [facility], [address], [place], [id number], [place] tel:[phone] [facility] diabetic eye exam (chief complaint) DM, type 2, mild background retinopathy w/ macular edema, bilateral Oct-[address], [place], [id number], [place]. tel:[phone] [facility], [address], [place], [id number], [place] tel:[phone] [facility] diabetic eye exam (chief complaint) DM, type 2, mild background retinopathy w/ macular edema, bilateral [address], [place], [id number], [place]. tel:[phone] [facility], [address], [place], [id number], [place] tel:[phone] [facility] diabetic eye exam (chief complaint) DM, type 2, mild background retinopathy w/ macular edema, bilateral [address], [place], [id number], [place]. tel:[phone] [facility], [address], [place], [id number], [place] tel:[phone] [facility] DM w/ mac edema (chief complaint) DM, type 2, mild background retinopathy w/ macular edema, bilateral [address] [place] [address]. [address], [place], [id number], [place]. tel:[phone] [facility], [address], [place], [id number], [place] tel:[phone] [facility] diabetic eye exam (chief complaint) DM, type 2, mild background retinopathy w/ macular edema, bilateral [address] [place] [address]. [address], [place], [id number], [place]. tel:[phone] [facility], [address], [place], [id number], [place] tel:[phone] [facility] diabetic eye exam (chief complaint) DM, type 2, mild background retinopathy w/ macular edema, bilateral Oct- [address], [place], [id number], [place]. tel:[phone] [facility], [address], [place], [id number], [place] tel:[phone] [facility] diabetic eye exam (chief complaint) DM, type 2, mild background retinopathy w/ macular edema, bilateral [address], [place], [id number], [place]. tel:[phone] [facility], [address], [place], [id number], [place] tel:[phone] [facility] diabetic eye exam (chief complaint) DM, type 2, mild background retinopathy w/ macular edema, bilateral [address], [place], [id number], [place]. tel:[phone] [facility], [address], [place], [id number], [place] tel:[phone] [facility] diabetic eye exam (chief complaint) DM, type 2, mild background retinopathy w/ macular edema, bilateral Nov-1 3-[address], [place], [id number], [place]. tel:[phone] [facility], [address], [place], [id number], [place] tel:[phone] [facility] DM with macular edema (chief complaint) DM, type 2, mild background retinopathy w/ macular edema, bilateral Oct-1 5-[address], [place], [id number], [place]. tel:[phone] [facility], [address], [place], [id number], [place] tel:[phone] [facility] diabetic eye exam (chief complaint) DM, type 2, mild background retinopathy w/ macular edema, bilateralPost erior Capsule Opacification , left eye Oct-1 0-[address], [place], [id number], [place]. tel:[phone] [facility], [address], [place], [id number], [place] tel:[phone] [facility] diabetic eye exam (chief complaint) DM, type 2, mild background retinopathy w/ macular edema, bilateral Apr-0 6-[address], [place], [id number], [place]. tel:[phone] [facility], [address], [place], [id number], [place] tel:[phone] [facility] diabetic eye exam (chief complaint) DM, type 2, mild background retinopathy w/ macular edema, bilateral Dec-0 1-[address], [place], [id number], [place]. tel:[phone] [facility], [address], [place], [id number], [place] tel:[phone] [facility] diabetic eye exam (chief complaint) DM, type 2, mild background retinopathy w/ macular edema, bilateral [address], [place], [id number], [place]. tel:[phone] Family History Family Member Type Diagnosis Age At Onset No Information Payers Payer name Insurance type Covered libertarian ID Mauri zuluaga(s) [employer] CI [id number] [employer]-pay Card Program [place] [id number] Social History Type Description Quantity Date Captured [...] female presents for evaluation of DM with ENROUTE CONTROLLER & ME in the right eye and [...] for evaluation of diabetic eye exam with ENROUTE CONTROLLER and macular edema in the right eye [...] the right eye and left eye. Mild ENROUTE CONTROLLER with edema OU.DESTINY OU DM with macular [...] stable. No complaints. Referred by Dr. Godoy ([place], [place]). was told there was swelling in the back of the eye to diabetes. Was given Ketorolac to use 2-3 times a day. BS - [id number] - Last A1C was 7.7 (05/21/2007) Functional [...] Next appt with Dr. Correa's office at [facility] in [place] 10/10/20 (4 weeks from today). Given excellent BCVA OD, could consider observation or other regimen in an attempt to decrease her number of injections OD.OS: SUN OS today; continue q4 weeks as central DME continues to improve. Switched to Eylea OS 06/30/20 with good response. Next appt with Dr. Correa's office 10/10/20 (4 weeks from today). Patient is moving to [place] this month (September 2020). Has appointment with Dr. Mike Correa at [facility] in [facility] on 10/10/20. We will be sending chart notes after today's visit for patient to continue care with Dr. Correa. Related to DM, type 2, mild background retinopathy w/ macular edema, bilateral Return with Dr. Brian Hernandez for dilated exam and OCT (mac). [...] weeks on 09/12/20[facility] [place] [facility] [place] [facility] [place], recommend patient call [facility] Retinal department to set up appointment [...] next due 08/08/20Patient will be moving to [facility] in September, recommend patient call [facility] Retinal department to set up appointment [...] in 4 weeks.DESTINY OD: next due on 07/12/2020.[id number] paperwork filled out/scanned today. Related to DM, [...] macular edema, bilateral Return in [address] [facility] [address] Hernandez for mac OCT, dilated exam [...] Opacification, left eye Return in [address] [facility] [address] Hernandez for mac OCT, dilated exam [...] loss. 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 [...]
--- OUTSIDE RECORDS SUMMARY | 2024-10-07 13:38 | XMS_ITS | Patient Health Summary ---
Author Organization [facility] Address [address] [place] [address] Care Team Providers Care Business Analyst Intern Name Role Phone FemiRandy jones Primary Care Provider + Note from [facility],non-owned Affiliates and Associated Physician Practices is amultiple site organization consisting of ambulatory clinics and hospital sitesin [place], [place], [place] and [place]. This disclosure is being madepursuant to the Care Everywhere program and may not contain all information available regarding this patient. Last updated 18.[facility] Allergies No known active allergies Medications * Be aware that medications may not be up to date on this document. Alwaysverify current medications with the patient. * AVAPRO 150 MG tablet Take 1 Tab by mouth daily. * ZOCOR 40 MG tablet Take 1 Tab by mouth daily. * glimepiride (AMARYL) 4 MG tablet Take 1 Tab by mouth 2 times daily. * MULTI-VITAMIN PO Take 1 Tab by mouth daily. * rosiglitazone-metformin (AVANDAMET) 4-1000 MG tablet(Started 01/25/2008) Take 1 Tab by mouth 2 times daily. 2 refills left * metoprolol succinate XL 24hr (TOPROL XL) 200 MG tablet(Started 02/06/2008) Take 1 Tab by mouth daily. 1 refill left Active Problems Problem Noted Date Diagnosed Date Hypertension 12/23/2007 Type II or unspecified type diabetes mellitus without mention of complication, not stated as uncontrolled 12/23/2007 Screening for cervical cancer 12/23/2007 Other screening mammogram 12/23/2007 Immunizations * INFLUENZA VACCINE(Given 07/25/2003) * Pneumococcal(Given 03/02/2002) * TD VACCINE(Given 03/02/2002) Social History Tobacco Use Types Packs/Day Years Used Date Smoking Tobacco: Never Alcohol Use Standard Drinks/Week Comments No 0 (1 standard drink = 0.6 oz pur e alcohol) Sex and Gender Information Value Date Recorded Sex Assigned at Not on file Gender Identity Not on file Sexual Orientation Not on file Procedures * HEMOGLOBIN A1C(Performed 12/25/2007) * TSH(Performed 12/25/2007) * HEPATIC FUNCTION PANEL(Performed 12/25/2007) * BASIC METABOLIC PANEL (CALCIUM TOTAL)(Performed 12/25/2007) * LDL CHOLESTEROL DIRECT(Performed 12/25/2007) * MICROALB/CREAT RATIO URINE RANDOM PANEL(Performed 12/25/2007) * LIPID PROFILE(Performed 12/25/2007) * POLYSOMNOGRAPHY 4 OR MORE PARAMETERS(Performed 09/10/2007) * HEPATIC FUNCTION PANEL(Performed 05/29/2007) * HEMOGLOBIN A1C(Performed 05/29/2007) * BASIC METABOLIC PANEL (CALCIUM TOTAL)(Performed 05/29/2007) * MICROALB/CREAT RATIO URINE RANDOM PANEL(Performed 05/29/2007) * LIPID PROFILE(Performed 05/29/2007) * CYTOLOGY CERVICAL/VAG DIAG THIN PREP(Performed 05/20/2007) Results * MICROALB/CREAT RATIO URINE RANDOM PANEL (12/25/2007 8:59 AM CDT) Only the most recent of2 resultswithin the time period is included. Creatinine Urine 58 20 - 320 mg/dL [facility] Comment: Test Performed at: [employer] [address] [place], [place] ??[address] ANTHONY PARKER MD Microalbumin Urine 0.7 mg/dL [facility] Comment: REFERENCE RANGE NOT ESTABLISHED ?? Test Performed at: [employer] [address], [place] ??[address] ANTHONY PARKER MD Microalbumin/Crea tinine Ratio 12 [...] AM CDT 12/26/2007 12:15 AM CDT Randy Hyde DO LAB - URINE CHEM ISTRY ORDERABLES Performing Organization Address [facility] de Phone Number [place] [phone] [place] [address] * (ABNORMAL) HEMOGLOBIN A1C (12/25/2007 8:59 AM CDT) Only the most recent of2 resultswithin the time period is included. Hemoglobin A1c 6.4(H) % of total Hgb [facility] Comment: NON-DIABETIC: <6.0% REPORT COMMENT: FASTING Test Performed at: [facility] [employer] ??[address] ANTHONY PARKER MD 12/25/2007 8:59 AM CDT 12/26/2007 12:15 AM CDT Randy José Migueldickson DO LAB - CHEMISTRY ORDERABLES Performing Organization Address [facility] de Phone Number [facility] [address] [place] [address] * (ABNORMAL) BASIC METABOLIC PANEL (CALCIUM TOTAL) (12/25/2007 8:59 AM CDT) Only the most recent of2 resultswithin the time period is included. Glucose 106(H) 65 - 99 mg/dL [facility] [...] 10.2 mg/dL [facility] Comment: Test Performed at: [facility] [address] [place], [place] ??[address] ANTHONY PARKER MD 12/25/2007 8:59 AM CDT 12/26/2007 12:15 AM CDT Randy Hyde DO LAB - CHEMISTRY ORDERABLES Performing Organization Address [facility] de Phone Number [facility] [address] [place] [address] * HEPATIC FUNCTION PANEL (12/25/2007 8:59 AM CDT) Only the most recent of2 resultswithin the time period is included. Protein Total 6.9 6.2 - 8.3 g/dL [facility] Albumin 4.1 3.6 - 5.1 g/dL [facility] Globulin Total 2.8 2.2 - 3.9 g/dL (calc) [facility] Albumin/Globulin Ratio 1.5 1.0 - 2.1 (calc) [facility] Bilirubin Total 0.5 0.2 - 1.2 mg/dL [facility] Bilirubin Direct 0.1 < OR = 0.2 mg/dL [facility] Bilirubin Indirect 0.4 0.2 - 1.2 mg/dL (calc) [facility] Alkaline Phosphatase 45 33 - 130 U/L [facility] AST 21 10 - 35 U/L [facility] ALT 26 6 - 40 U/L [facility] Comment: Test Performed at: [employer] [place], [place] ??[address] ANTHONY PARKER MD 12/25/2007 8:59 AM CDT 12/26/2007 12:15 AM CDT Randy Hyde DO LAB - CHEMISTRY ORDERABLES Performing Organization Address [facility] de Phone Number [facility] [address] [place] [address] * LDL CHOLESTEROL (12/25/2007 8:59 AM CDT) LDL Direct 65 <130 mg/dL [facility] Comment: DESIRABLE RANGE <100 MG/DL FOR PATIENTS WITH CHD OR DIABETES AND <70 MG/DL FOR DIABETIC PATIENTS WITH KNOWN HEART DISEASE. Test Performed at: [employer] [place], [place] ??[address] ANTHONY PARKER MD 12/25/2007 8:59 AM CDT 12/26/2007 12:15 AM CDT Randy Hyde DO LAB - CHEMISTRY ORDERABLES Performing Organization Address [facility] Phone Number [address] [address] * TSH (12/25/2007 8:59 AM CDT) TSH 1.47 mIU/L [facility] Comment: REFERENCE RANGE: > OR = 20 YEARS: 0.40-4.50 ? RANGES FIRST TRIMESTER ?0.20-4.70 SECOND TRIMESTER ?? 0.30-4.10 THIRD TRIMESTER ?0.40-2.70 Test Performed at: [employer] [address] [place], [place] ??[address] ANTHONY PARKER MD 12/25/2007 8:59 AM CDT 12/26/2007 12:15 AM CDT Randy Kahnkaren HOSKINS LAB - CHEMISTRY ORDERABLES Performing Organization Address [facility] Phone Number [place] [phone] * LIPID PROFILE (12/25/2007 8:59 AM CDT) Only the most recent of2 resultswithin the time period is included. Triglycerides 87 <150 mg/dL [facility] Comment: Test Performed at: [employer] [place], [place] ??[address] ANTHONY PARKER MD Cholesterol 133 125 - 200 mg/dL [facility] HDL Cholesterol 61 > OR = 40 mg/dL [facility] LDL Calculated 55 <130 mg/dL (calc) [facility] Comment: DESIRABLE RANGE <100 MG/DL FOR PATIENTS WITH CHD OR DIABETES AND <70 MG/DL FOR DIABETIC PATIENTS WITH KNOWN HEART DISEASE. CHOL/HDLC RATIO 2.2 < OR = 5.0 (calc) [facility] 12/25/2007 8:59 AM CDT 12/26/2007 12:15 AM CDT Randy Hyde DO LAB - CHEMISTRY ORDERABLES [facility] [address] [place] [address] * POLYSOMNOGRAPHY (09/10/2007 10:52 AM WRECKING CRANE ENGINE OPERATOR) Narrative Procedure Note Surya Giordano - 09/10/2007 10:52 [facility] ACCREDITED BY THE [employer] POLYSOMNOGRAPHY PATIENT NAME: MICHAELA ROBERTSON MR#: [id number] ROOM#: SEX: F REFERRING PHYSICIAN: SURYA GIORDANO M.D.: 1955 DATE OF TEST: 09/03/07 STUDY NIGHT: 1 HEIGHT: 165.1 cm BODY MASS INDEX: 41.3 kg/m2 WEIGHT: 112.5 kg INDICATION FOR TEST: THE PATIENT IS A 52 YEAR OLD WHITE FEMALE, WITH EXCESSIVE DAYTIME SLEEPINESS AND SNORING. POLYSOMNOGRAPHY IS INDICATEDTO RULE OUT OBSTRUCTIVE SLEEP APNEA. STUDY RESULTS: POLYSOMNOGRAPHY WAS CARRIED OUT IN STANDARD SPLIT NIGHT FASHION. OVERNIGHT SLEEP STUDY WAS PERFORMED MONITORING LEFT AND RIGHT EOG, SUBMENTAL EMG, INTERCOSTAL EMG, LEFT AND RIGHT ANTERIOR TIBIALISEMG, CENTRAL AND OCCIPITAL EEG, ELECTROCARDIOGRAM, CONTINUOUS AIR FLOW MEASUREMENT, ABDOMINAL AND THORACIC RESPIRATORY EFFORT, CONTINUOUS OXIMETRY, OVERNIGHT VIDEO, AND SNORING MICROPHONE. THE RAW DATA FROM THE POLYSOMNOGRAM WAS REVIEWED. THE PRE-CPAP PORTION OF THE STUDY REVEALED A TOTAL RECORDING TIME OF 150 MINUTES, WITH A TOTAL SLEEP TIME OF 130.5 MINUTES. SLEEP EFFICIENCY WAS NORMAL AT 86.9%. SLEEP LATENCY WAS REDUCED AT 5 MINUTES. REM LATENCY WAS NORMAL AT 113 MINUTES. SLEEP STAGING REVEALED 7.7% STAGE 1, 77.4% STAGE2, 0% STAGE 3, 0% STAGE 4 AND 15.0% REM SLEEP. THERE WAS 1 REM PERIODNOTED. THERE WERE 27 STAGE SHIFTS, WITH 6 AWAKENINGS. SLEEP ARCHITECTURE IS ABNORMAL WITH THE ABSENCE OF SLOW WAVE SLEEP. THERE IS ALSO A REDUCTIONIN SLEEP LATENCY CONSISTENT WITH HYPERSOMNOLENCE. THERE WAS 1 CENTRAL APNEA, 18 OBSTRUCTIVE APNEAS, 4 MIXED APNEAS AND 153 HYPOPNEAS, FOR A TOTAL OF 176 RESPIRATORY EVENTS. APNEA HYPOPNEA INDEXWAS 81.0 EVENTS PER HOUR OF SLEEP. INDEX WAS HIGHER IN THE SUPINE POSITIONAT 116.2 EVENTS PER HOUR OF SLEEP, COMPARED TO 67.8 EVENTS PER HOUR OFSLEEP IN THE NON-SUPINE POSITION. INDEX WAS HIGHER DURING NON-REM SLEEP AT81.7 EVENTS PER HOUR OF SLEEP, COMPARED TO 76.9 EVENTS PER HOUR OF SLEEPDURING REM SLEEP. LOWEST SATURATION WAS 80.0% DURING NON-REM SLEEP AND 78.0% DURING REM SLEEP. LONGEST EVENT WAS A HYPOPNEA, WHICH WAS 61.9 SECONDS. SNORING WAS NOTED THROUGHOUT THE PRE-CPAP PORTION OF THE STUDY. THERE WERE 6 LEG MOVEMENTS NOTED, 2 OF WHICH WERE ASSOCIATED WITHAROUSALS. THERE WERE NO DYSRHYTHMIAS SEEN. THE PATIENT SPENT 27.3% OF HER TIME IN THE SUPINE POSITION AND 72.7% OF HER TIME IN THE NON-SUPINE POSITION. THE PATIENT WAS STARTED ON NASAL CPAP. NASAL CPAP PRESSURES RANGING FROM5 CM TO 15 CM H2O PRESSURE WERE INVESTIGATED. OPTIMAL NASAL CPAP PRESSURE APPEARED TO BE 14 CM H2O PRESSURE. AT THIS LEVEL APNEA HYPOPNEA INDEXWAS 1.3 EVENTS PER HOUR OF SLEEP. LOWEST SATURATION WAS 89.0%. BOTH REM AND NON-REM SLEEP WERE OBSERVED AT THIS LEVEL. SNORING WAS ABOLISHED WITH NASAL CPAP. THERE WERE 91 LEG MOVEMENTS NOTED, 19 OF WHICH WERE ASSOCIATED WITH AROUSALS. THERE WERE NO DYSRHYTHMIAS SEEN. THE PATIENT SPENT 60.4% OFHER TIME IN THE SUPINE POSITION AND 39.6% OF HER TIME IN THE NON-SUPINE POSITION. IMPRESSION: 1. OBSTRUCTIVE SLEEP APNEA - SEVERE - WITH AN APNEA HYPOPNEA INDEX OF81.0 EVENTS PER HOUR OF SLEEP. INDEX WAS HIGHER IN THE SUPINE POSITION AND DURING NON-REM SLEEP. 2. SNORING WAS NOTED THROUGHOUT THE PRE-CPAP PORTION OF THE STUDY. 3. SUCCESSFUL TREATMENT OF OBSTRUCTIVE SLEEP APNEA WITH NASAL CPAP, 14CM H2O PRESSURE. 4. PERIODIC LIMB MOVEMENT DURING SLEEP. THE MAJORITY OF THESE WERE NOT ASSOCIATED WITH AROUSALS. RECOMMENDATIONS: 1. TREATMENT OF OBSTRUCTIVE SLEEP APNEA WITH NASAL CPAP, 14 CM H2O PRESSURE. 2. WOULD SUGGEST CLINICAL FOLLOW-UP OF LEG MOVEMENTS, THE MAJORITY OF THESE ARE NOT ASSOCIATED WITH AROUSALS. This document has been reviewed and signed by SURYA GIORDANO Sign Date/Time: 09/17/2007 10:29PM SURYA GIORDANO M.D. T S:renay - [id number] cc: RANDY HYDE D.O. Surya Giordano MD SLEEP CENTER ORDERAB LES * CYTOLOGY CERVICAL/VAG DIAG THIN PREP (05/20/2007) Report Status FINAL [facility] Clinical Information SEE NOTE [facility] Comment: Normal exam Hysterectomy, total Ultrasound Date SEE NOTE [facility] Comment: Previous Pap SEE NOTE [facility] Comment:1 YR AGO WNL Source SEE NOTE [facility] Comment:Vagina Statement of Adequacy SEE NOTE [facility] Comment:SATISFACTORY FOR HILTON LUATION Interpretation/Resul t SEE NOTE [facility] Comment:Negative for intraep ithelial lesion or malignancy. Comment SEE NOTE [facility] Comment: Based on the cytology result, reflex High/Int Risk HPV DNA Probe testing is not performed. Chemical Research Engineer SEE NOTE [facility] Comment: [place], CT(ASCP) Test Performed at: [facility] [address] ??[address] ANTHONY PARKER MD 05/20/2007 05/21/2007 5:0 1 AM CDT Jayesh Valdez MD LAB - PATHOLOGY/CYT OLOGY ORDERABLES [facility] [address] [place] [address] Care Teams Business Analyst Intern Relationship Specialty Start Date End Date Randy Hyde DO [address] [place] [id number] PCP - General 12/23/07
[2024-10-07 16:27] LABS: Hemoglobin 10.9 g/dL (12.0-15.0); Mean Corpuscular HGB Conc 31.1 g/dl (32-36); Mean Corpuscular Hemoglobin 32.6 pg (26-34); Mean Corpuscular Volume 104.8 fl (80-100); Mean Platelet Volume 11.3 fl (7.4-10.4); Platelet Count Result 268 k/mm3 (150-375); Red Blood Count 3.34 M/mm3 (4.2-5.4); Red Cell Distribution Width 13.2 % (11.5-14.5); White Blood Count 9.3 K/mm3 (4.5-10.0)
[2024-10-07 16:42] LABS: Albumin Level 3.5 g/dL (3.5-5.1); Anion Gap 8 mmol/L (4-12); Blood Urea Nitrogen 46 mg/dL (7-17); Calcium 9.1 mg/dL (8.4-10.2); Carbon Dioxide 21 mmol/L (22-30); Chloride 110 mmol/L (98-107); Estimated Glomerular Filt Rate 21; Glucose 71 mg/dL (65-110); Phosphorus 4.2 mg/dL (2.5-4.5); Potassium 4.7 mmol/L (3.4-5.0); Sodium 139 mmol/L (137-145)
[2024-10-07 16:54] LABS: Creatinine Urine 28.9 mg/dL
[2024-10-07 16:58] LABS: Parathyroid Intact 150.6 pg/mL (14.5-75.2)
[2024-10-07 17:06] LABS: Total Protein Urine Random 456 mg/dL; Ur Ttl Prot Creatinine Ratio 15.78 mg/mg (0-0.20)
[2024-10-07 21:11] LABS: Hemoglobin A1C 6.9 % (<5.7)
== END 2024-10-07 12:49 | disposition home or self-care (01) ==
LOC: ANHGOSHLAB 12:50
PROVIDERS: PCP Nurse Practitioner; Visit Provider Internal Medicine Nephrology
DX: N18.32 Chronic kidney disease, stage 3b (principal); E11.9 Type 2 diabetes mellitus without complications; Z79.4 Long term (current) use of insulin
CPT/HCPCS: 36415; 80069; 82570; 83036; 83970; 84156; 85027

== ENCOUNTER 2025-01-14 10:08 | Outpatient (CLI) | payer MEDICARE, SELFPAY ==
--- NOTE | ~2025-01-14 | MM_ITS ---
EXAMINATION: MM screening [facility] BI w alvarez HISTORY: Screening TECHNIQUE: Craniocaudal and mediolateral oblique 3-D tomosynthesis images were obtained and synthetic 2-D images were generated. CAD analysis was submitted and interpreted. COMPARISON: Comparison to multiple prior studies sequentially, with oldest reviewed study dated 08/14. BREAST PARENCHYMAL COMPOSITION: Not dense: There are scattered areas of fibroglandular density. FINDINGS: There is no evidence of suspicious mass, calcification, or architectural distortion to sugg est malignancy in either breast. There has been no suspicious interval change. IMPRESSION: 1. No mammographic evidence of malignancy. 2. Recommend routine screening mammography in one year. BI-RADS Category 1: Negative Reviewed, dictated and finalized at location A.
--- OUTSIDE RECORDS SUMMARY | 2025-01-14 10:13 | XMS_ITS | Referral Summary ---
Author Organization [facility] Address [address] [place] [address] Care Team Providers Care Hot Bread Baker Name Role Phone Anisha Lyle HOSKINS Primary Care Provider [phone] Allergies No known active allergies Medications ferrous [...] optometry Assessment & Plan (08/19/2023 11:33 AM PRESS OPERATOR INSTANT PRINT SHOP): OD noncrntral edema almost resolved OS last inj IVO in December 2022 with dramatic improvement in DME DRCR discussed Assessment & Plan (12/31/2022 11:24 AM CDT): Last SUN 01/2022 Last ozurdex 08/2022 Now 4 months since last ozurdex with worsened edema and subjectively worse vision left eye (OS). IOP controlled on alphagan TID OS Consider repeat IVO OS today but will bring cloth printing back tender at 1-2 months to assess response. Assessment & Plan (08/20/2022 8:55 AM PRESS OPERATOR INSTANT PRINT SHOP): Last SUN 01/2022 Last ozurdex 04/2022 Now [...] incidence. Assessment & Plan (09/11/2021 9:07 AM PRESS OPERATOR INSTANT PRINT SHOP): OD stable with minimal NCI-DME OS with persistent CI-DME s/p focal 05/22/21 and now 7 week s/p DESTINY for DME. Also received focal laser OS prior to last inj Consider repeat DESTINY OS today Assessment & Plan (07/24/2021 8:50 AM PRESS OPERATOR INSTANT PRINT SHOP): Hx of antiVEGF both eyes (OU) in [place] OD: trace noncentral DME with great vision. Rec cont observation. OS: s/p focal 05/22/21. Worsened center-involved DME. Recommend anti-VEGF injection. Assessment & Plan (05/01/2021 9:13 AM CDT): Hx of antiVEGF both eyes (OU) in [place] Stable mild non-proliferative diabetic retinopathy (NPDR) with [...] OU Assessment & Plan (11/07/2020 9:12 AM PRESS OPERATOR INSTANT PRINT SHOP): Discussed with patient Protocol V discussed Assessment & Plan (10/10/2020 11:57 AM PRESS OPERATOR INSTANT PRINT SHOP): Previously managed by Dr. Domingo Hernandez in [place] DME OU. Treated with DESTINY q8w OD [...] time Assessment & Plan (10/10/2020 11:56 AM PRESS OPERATOR INSTANT PRINT SHOP): Discussed with patient May contribute to DME Social History Tobacco Use Types Packs/Day Years Used Date Smoking Tobacco: Never Smokeless Tobacco: Never Personal Safety Answer Date Recorded Getting School Help Needed Not on file 08/19 Comments Unknown Sex and Gender Information Value Date Recorded Sex Assigned at Not on file Legal Sex Female 9:11 AM PRESS OPERATOR INSTANT PRINT SHOP Gender Identity Not on file Sexual Orientation Not on file Plan of Treatment Not on file Insurance CIG[employer] GENERIC COPAY ASSIST C[employer] OPEN ACCESS [place] [address] Care Teams Hot Bread Baker Relationship Specialty Start Date End Date Lyle Lancaster DO PCP - General Family Medicine 11/09/21
--- OUTSIDE RECORDS SUMMARY | 2025-01-14 10:13 | XMS_ITS | Continuity of Care Document ---
Author Organization [facility] Address [address] [place] [address] Phone Care Team Providers Care Cutter Gas Name Role Phone Domingo Hernandez MD Unavailable [...] TREATMENT OCT Scan Retina MEDICAL EYE EXAM, CHAINER OCT Scan Retina Advance Directives Directive Yes / No Effective Date File Name No Information Encounters Encounter Description Practice Location Reason(s) For Visit Diagnoses Date Provider Providers Copied on Encounter [facility], [address], [place], [id number], [place] tel:[phone] [facility] DM w/ mac edema (chief complaint) DM, type 2, mild background retinopathy w/ macular edema, bilateralPost erior Capsule Opacification , left eye Hardy- [address], [place], [id number], [place]. tel:[phone] [facility], [address], [place], [id number], [place] tel:[phone] [facility] DM with DR and Edema (chief complaint) DM, type 2, mild background retinopathy w/ macular edema, bilateral Dec-[address], [place], [id number], [place]. tel:[phone] [facility], [address], [place], [id number], [place] tel:[phone] [facility] Dm with DR and edema (chief complaint) DM, type 2, mild background retinopathy w/ macular edema, bilateral Nov- 0- [address], [place], [id number], [place]. tel:[phone] [facility], [address], [place], [id number], [place] tel:[phone] [facility] decreased vision (chief complaint) DM, type 2, mild background retinopathy w/ macular edema, bilateral Oct-[address], [place], [id number], [place]. tel:[phone] [facility], [address], [place], [id number], [place] tel:[phone] [facility] DM with mild DR and macular edema (chief complaint) DM, type 2, mild background retinopathy w/ macular edema, bilateral Sep-[address], [place], [id number], [place]. tel:[phone] [facility], [address], [place], [id number], [place] tel:[phone] [facility] diabetic eye exam (chief complaint) DM, type 2, mild background retinopathy w/ macular edema, bilateralPost erior Capsule Opacification , left eye Mar- [address], [place], [id number], [place]. tel:[phone] [facility], [address], [place], [id number], [place] tel:[phone] [facility] DM (chief complaint) DM, type 2, mild background retinopathy w/ macular edema, bilateralPost erior Capsule Opacification , left eye [address], [place], [id number], [place]. tel:[phone] [facility], [address], [place], [id number], [place] tel:[phone] [facility] DM w/ mac edema (chief complaint) DM, type 2, mild background retinopathy w/ macular edema, bilateral Nov- [address], [place], [id number], [place]. tel:[phone] [facility], [address], [place], [id number], [place] tel:[phone] [facility] DME (chief complaint) DM, type 2, mild background retinopathy w/ macular edema, bilateral Feb-[address], [place], [id number], [place]. tel:[phone] [facility], [address], [place], [id number], [place] tel:[phone] [facility] DM, type 2, mild background retinopathy w/ macular emeka (chief complaint) DM, type 2, mild background retinopathy w/ macular edema, bilateral Dec-[address], [place], [id number], [place]. tel:[phone] [facility], [address], [place], [id number], [place] tel:[phone] [facility] diabetic eye exam (chief complaint) DM, type 2, mild background retinopathy w/ macular edema, bilateral Jul- [address], [place], [id number], [place]. tel:[phone] [facility], [address], [place], [id number], [place] tel:[phone] [facility] diabetic eye exam (chief complaint) DM, type 2, mild background retinopathy w/ macular edema, bilateral Oct-[address], [place], [id number], [place]. tel:[phone] [facility], [address], [place], [id number], [place] tel:[phone] [facility] diabetic eye exam (chief complaint) DM, type 2, mild background retinopathy w/ macular edema, bilateral [address], [place], [id number], [place]. tel:[phone] [facility], [address], [place], [id number], [place] tel:[phone] [facility] diabetic eye exam (chief complaint) DM, type 2, mild background retinopathy w/ macular edema, bilateral [address], [place], [id number], [place]. tel:[phone] [facility], [address], [place], [id number], [place] tel:[phone] [facility] DM w/ mac edema (chief complaint) DM, type 2, mild background retinopathy w/ macular edema, bilateral [address] [employer] [address], [place], [id number], [place]. tel:[phone] [facility], [address], [place], [id number], [place] tel:[phone] [facility] diabetic eye exam (chief complaint) DM, type 2, mild background retinopathy w/ macular edema, bilateral [address] [employer] [address], [place], [id number], [place]. tel:[phone] [facility], [address], [place], [id number], [place] tel:[phone] [facility] diabetic eye exam (chief complaint) DM, type 2, mild background retinopathy w/ macular edema, bilateral Oct- [address], [place], [id number], [place]. tel:[phone] [facility], [address], [place], [id number], [place] tel:[phone] [facility] diabetic eye exam (chief complaint) DM, type 2, mild background retinopathy w/ macular edema, bilateral [address], [place], [id number], [place]. tel:[phone] [facility], [address], [place], [id number], [place] tel:[phone] [facility] diabetic eye exam (chief complaint) DM, type 2, mild background retinopathy w/ macular edema, bilateral [address], [place], [id number], [place]. tel:[phone] [facility], [address], [place], [id number], [place] tel:[phone] [facility] diabetic eye exam (chief complaint) DM, type 2, mild background retinopathy w/ macular edema, bilateral Nov-1 3-[address], [place], [id number], [place]. tel:[phone] [facility], [address], [place], [id number], [place] tel:[phone] [facility] DM with macular edema (chief complaint) DM, type 2, mild background retinopathy w/ macular edema, bilateral Oct-1 5-[address], [place], [id number], [place]. tel:[phone] [facility], [address], [place], [id number], [place] tel:[phone] [facility] diabetic eye exam (chief complaint) DM, type 2, mild background retinopathy w/ macular edema, bilateralPost erior Capsule Opacification , left eye Oct-1 0-[address], [place], [id number], [place]. tel:[phone] [facility], [address], [place], [id number], [place] tel:[phone] [facility] diabetic eye exam (chief complaint) DM, type 2, mild background retinopathy w/ macular edema, bilateral Apr-0 6-[address], [place], [id number], [place]. tel:[phone] [facility], [address], [place], [id number], [place] tel:[phone] [facility] diabetic eye exam (chief complaint) DM, type 2, mild background retinopathy w/ macular edema, bilateral Dec-0 1-[address], [place], [id number], [place]. tel:[phone] [facility], [address], [place], [id number], [place] tel:[phone] [facility] diabetic eye exam (chief complaint) DM, type 2, mild background retinopathy w/ macular edema, bilateral [address], [place], [id number], [place]. 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 No complaints. Referred by Dr. Godoy ([place], [place]). was told there was swelling in the back of the eye to diabetes. Was given Ketorolac to use 2-3 times a day. BS - [id number] - Last A1C was 7.7 (05/21/2007) Functional [...] Next appt with Dr. Correa's office at [facility] in [place] 10/10/20 (4 weeks from today). Given excellent BCVA OD, could consider observation or other regimen in an attempt to decrease her number of injections OD.OS: SUN OS today; continue q4 weeks as central DME continues to improve. Switched to Eylea OS 06/30/20 with good response. Next appt with Dr. Correa's office 10/10/20 (4 weeks from today). Patient is moving to [place] this month (September 2020). Has appointment with Dr. Mike Correa at [facility] in [facility] on 10/10/20. We will be sending chart notes after today's visit for patient to continue care with Dr. Correa. Related to DM, type 2, mild background retinopathy w/ macular edema, bilateral Return with Dr. Brian Hernandez for dilated exam and OCT ([facility] [place]). 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 Risks, benefits, and alternatives reviewed with patient, who agrees to proceed. OD: DESTINY OD; continue q8 weeks; next due 09/12/20OS: SUN OS today interval; next due in 4 weeks on 09/12/20Patient will be moving to [place] in September, recommend patient call [facility] Retinal department to set up appointment to continue care once she moves. 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 Domingo Hernandez for dilated exam and OCT (mac). DESTINY OD AND SUN OS on 09/12/20 Related to DM, type 2, mild background retinopathy w/ macular edema, bilateral Return in [address] [facility] [address] Hernandez for mac OCT, dilated exam [...] due 08/08/20Patient will be moving to [facility] in September, recommend patient call [facility] Retinal department to set up appointment [...] in 4 weeks.DESTINY OD: next due on 07/12/2020.[id number] paperwork filled out/scanned today. Related to DM, [...] macular edema, bilateral Return in [address] [facility] [address] Hernandez for mac OCT, dilated exam [...] Opacification, left eye Return in [address] [facility] [address] Hernandez for mac OCT, dilated exam [...] bilateral Return in 7-[address] Domingo [...] macular edema, bilateral Return in [address] [facility] [address] Hernandez for mac OCT, dilated exam [...] loss. 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
--- OUTSIDE RECORDS SUMMARY | 2025-01-14 10:13 | XMS_ITS | Clinical Summary ---
Author Organization [facility] Address [address] [place] [address] Care Team Providers Care Automobile Mechanic Motor Name Role Phone Anisha Lyle HOSKINS Primary Care Provider [phone] Allergies No known active allergies Medications ferrous [...] optometry Assessment & Plan (08/19/2023 11:33 AM EARTH OBSERVATIONS CHIEF SCIENTIST): OD noncrntral edema almost resolved OS last inj IVO in December 2022 with dramatic improvement in DME DRCR discussed Assessment & Plan (12/31/2022 11:24 AM CDT): Last SUN 01/2022 Last ozurdex 08/2022 Now 4 months since last ozurdex with worsened edema and subjectively worse vision left eye (OS). IOP controlled on alphagan TID OS Consider repeat IVO OS today but will bring back wedger at 1-2 months to assess response. Assessment & Plan (08/20/2022 8:55 AM EARTH OBSERVATIONS CHIEF SCIENTIST): Last SUN 01/2022 Last ozurdex 04/2022 Now [...] incidence. Assessment & Plan (09/11/2021 9:07 AM EARTH OBSERVATIONS CHIEF SCIENTIST): OD stable with minimal NCI-DME OS with persistent CI-DME s/p focal 05/22/21 and now 7 week s/p DESTINY for DME. Also received focal laser OS prior to last inj Consider repeat DESTINY OS today Assessment & Plan (07/24/2021 8:50 AM EARTH OBSERVATIONS CHIEF SCIENTIST): Hx of antiVEGF both eyes (OU) in [place] OD: trace noncentral DME with great vision. Rec cont observation. OS: s/p focal 05/22/21. Worsened center-involved DME. Recommend anti-VEGF injection. Assessment & Plan (05/01/2021 9:13 AM CDT): Hx of antiVEGF both eyes (OU) in [place] Stable mild non-proliferative diabetic retinopathy (NPDR) with [...] OU Assessment & Plan (11/07/2020 9:12 AM EARTH OBSERVATIONS CHIEF SCIENTIST): Discussed with patient Protocol V discussed Assessment & Plan (10/10/2020 11:57 AM EARTH OBSERVATIONS CHIEF SCIENTIST): Previously managed by Dr. Domingo Hernandez in [place] DME OU. Treated with DESTINY q8w OD [...] time Assessment & Plan (10/10/2020 11:56 AM EARTH OBSERVATIONS CHIEF SCIENTIST): Discussed with patient May contribute to DME [...] on file Legal Sex Female 9:11 AM EARTH OBSERVATIONS CHIEF SCIENTIST Gender Identity Not on file Sexual Orientation [...] Pneumococcal vaccine 65+ (2 of 2 - PPSV23) 04/27/2002 03/02/2002 Zoster Vaccine (1 of 2) 2004 Well Visit 65+ 2019 Dilated Eye Exam 04/06/2025 04/06/2024, , 04/10/2022, Additional history exists Influenza Vaccine (Season Ended) 2025 06/12/2021, 06/08/2021, 07/25/2003 Insurance C[employer] GENERIC COPAY ASSIST C[employer] OPEN ACCESS Care Teams Automobile Mechanic Motor Relationship Specialty Start Date End Date Lyle Lancaster DO PCP - General Family Medicine 11/09/21
--- OUTSIDE RECORDS SUMMARY | 2025-01-14 10:13 | XMS_ITS | Clinical Summary ---
Author Organization [facility] Address [address] [place] [address] Care Team Providers Care Medical Device Sales Representative Name Role Phone José MiguelRandy forman Primary Care Provider + Source Comments [facility],non-owned Affiliates and Associated Physician Practices is amultiple site organization consisting of ambulatory clinics and hospital sitesin [place], [place], [place] and [place]. This disclosure is being madepursuant to the Care Everywhere program and may not contain all information available regarding this patient. Last updated 18.[facility] Allergies No known active allergies Medications * Be aware that medications may not be up to date on this document. Alwaysverify current medications with the patient. AVAPRO 150 MG tablet Take 1 Tab by mouth daily. Active ZOCOR 40 MG tablet Take 1 Tab by mouth daily. Active glimepiride (AMARYL) 4 MG tablet Take 1 Tab by mouth 2 times daily. Active MULTI-VITAMIN PO Take 1 Tab by mouth daily. 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 Gender Identity Not on file Sexual Orientation [...] SCREENING 05/03/1972 PNEUMOCOCCAL VACCINE 50+ (1 of 1 - PCV) 2004 ZOSTER VACCINE (1 of 2) 2004 DIABETES-SERUM CREATININE 12/24/20082007, 05/29/2007 DTAP/TDAP/TD VACCINES (2 - T d or Tdap) 03/02/2012 03/02/2002 DIABETES-FOOT EXAM WITH MONOFILAMENT 08/23/2021 DIABETES-HGB A1C 08/23/2021 12/25/2007, 05/29/2007 COVID-19 VACCINE (3 - 2023-2 5 season) 2024 12/24/2020, 11/28/2020 DEPRESSION SCREENING 09/08/2024 DIABETES - URINE PROTEIN SCREENING 09/08/2024 12/25/2007, 05/29/2007 INFLUENZA VACCINE (Season Ended) 2025 07/25/2003 Respiratory Syncytial Virus (RSV) Vaccine Pt: or [...] complete this topic MENINGOCOCCAL (Group B) VACCINE SHARED DECISION-MAKING Aged Out No longer eligible based on patient's age to complete this topic MENINGOCOCCAL GROUPS A/C/Y/W VACCINE Aged Out No longer eligible b [...] 320 mg/dL [facility] Comment: Test Performed at: [place] [address] ANTHONY PARKER MD Microalbumin Urine 0.7 mg/dL [facility] Comment: REFERENCE RANGE NOT ESTABLISHED Test Performed at: [facility] [id number] [address] ANTHONY PARKER MD Microalbumin/Crea tinine Ratio 12 <30 mcg/mg creat [facility] Comment: THE ADA (DIABETES CARE 26:S94-S98, 2003) DEFINES ABNORMALITIES IN ALBUMIN EXCRETION FOLLOWS: CATEGORY RESULT (MCG/MG CREATININE) NORMAL <30 MICROALBUMINURIA 30-299 CLINICAL ALBUMINURIA > OR = 300 THE ADA RECOMMENDS THAT AT LEAST TWO OF THREE SPECIMENS COLLECTED WITHIN A 3-6 MONTH PERIOD BE ABNORMAL BEFORE CONSIDERING A PATIENT TO BE WITHIN A DIAGNOSTIC CATEGORY. 12/25/2007 8:59 AM CDT 12/26/2007 12:15 AM CDT Randy Martinez DO LAB - URINE CHEMISTRY OR DERABLES Final Result [facility] [id number] [place] [address] * (ABNORMAL) HEMOGLOBIN A1C (12/25/2007 8:59 AM CDT) Hemoglobin A1c 6.4(H) % of total Hgb [facility] Comment: NON-DIABETIC: <6.0% REPORT COMMENT: FASTING Test Performed at: [facility] [id number] [employer] [place] [address] ANTHONY PARKER MD 12/25/2007 8:59 AM CDT 12/26/2007 12:15 AM CDT Randy Martinez DO LAB - CHEMISTRY ORDERABL ES Final Result Performing Organization Address [facility] [place] [address] * (ABNORMAL) BASIC METABOLIC PANEL (CALCIUM TOTAL) [...] 10.2 mg/dL [facility] Comment: Test Performed at: [email or web address] [id number] ANTHONY PARKER MD 12/25/2007 8:59 AM CDT 12/26/2007 12:15 AM CDT Randy Martinez DO LAB - CHEMISTRY ORDERABL ES Final Result Performing Organization Address [facility] [place] [address] from Last 3 Months or Most Recently Relevant to Health Maintenance Care Teams Medical Device Sales Representative Relationship Specialty Start Date End Date Randy Martinez DO [address] [place], [place] [address] [place] [address] PCP - General 12/23/07
--- OUTSIDE RECORDS SUMMARY | 2025-01-14 10:13 | XMS_ITS | Clinical Summary ---
Author Organization [facility] Address [address] [place] [address] Phone Care Team Providers Care Flume Maker Name Role Phone Terence Herrera MD Primary Care Provider [phone] Allergies No known active allergies Medications atorvastatin (LIPITOR) 40 MG tablet Take 40 [...] LEFT EYE THREE TIMES DAILY 04/13/2022 Active losartan-hydroC HLOROthiazide (HYZAAR) 100-25 MG per tablet Take 1 [...] 07/18/2015 Diabetes mellitus 12/23/2007 Hypertension 12/23/2007 Immunizations Immunization Administration Dates Next Due Influenza TIV (IM) [...] oz pur e alcohol) 1 per month Comments Unknown Sex and Gender Information Value Date Recorded Sex Assigned at Not on file Legal Sex Female 11:43 AM [facility] Gender Identity Not on file Sexual Orientation Not on file Last Filed Vital Signs Vital Sign Reading Time Taken Comments Blood Pressure 162/80 06/26/2022 9:38 AM CDT Pulse 72 06/26/2022 9:38 AM CDT Temperature 35.5 C (95.9 F) 06/26/2022 9:38 AM CDT Respiratory Rate - - Oxygen Saturation - - Inhaled Oxygen Concentration - - Weight 106 kg (233 lb) 06/26/2022 9:38 AM CDT Height 157.5 cm (5' 2 ) 06/26/2022 9:38 AM CDT Body Mass Index 42.62 06/26/2022 9:38 AM CDT Plan of Treatment Health Maintenance Due Date Last Done Comments Pneumococcal PPSV23/PCV13 65 + Years / High and Highest Risk (2 of 4 - PPSV23) 04/27/2002 03/02/2002 Influenza Vaccine (Season Ended) 2025 06/08/20 21, 07/25/2003 Insurance [facility] Care Teams Flume Maker Relationship Specialty Start Date End Date Terence Herrera MD [address] [place] [address] PCP - General Family Medicine 10/08/21
== END 2025-01-14 10:09 | disposition home or self-care (01) ==
LOC: ANHIMG 10:11
PROVIDERS: PCP Internal Medicine; Visit Provider Nurse Practitioner
DX: Z12.31 Encounter for screening mammogram for malignant neoplasm of breast (principal)
CPT/HCPCS: 77063; 77067

== ENCOUNTER 2025-02-04 11:39 | Outpatient (CLI) | payer MEDICARE, OTHER, SELFPAY ==
--- OUTSIDE RECORDS SUMMARY | 2025-02-04 11:43 | XMS_ITS | Clinical Summary ---
Author Organization [facility] Address [address] [place] [address] Care Team Providers Care Supervising Producer Name Role Phone José MiguelRandy forman Primary Care Provider + Source Comments [facility] [facility],non-owned Affiliates and Associated Physician Practices is amultiple site organization consisting of ambulatory clinics and hospital sitesin [place], [place], [place] and [place]. This disclosure is being madepursuant to the Care Everywhere program and may not contain all information available regarding this patient. 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[employer] Gender Identity Not on file Sexual Orientation [...] 320 mg/dL [facility] Comment: Test Performed at: [place] [address] ANTHONY PARKER MD Microalbumin Urine 0.7 mg/dL [facility] Comment: REFERENCE RANGE NOT ESTABLISHED Test Performed at: [facility] [address] [address] ANTHONY PARKER MD Microalbumin/Crea tinine Ratio 12 [...] - URINE CHEMISTRY OR DERABLES Final Result [facility] [id number] [place] [address] * (ABNORMAL) HEMOGLOBIN A1C (12/25/2007 8:59 AM CDT) Hemoglobin A1c 6.4(H) % of total Hgb [facility] Comment: NON-DIABETIC: <6.0% REPORT COMMENT: FASTING Test Performed at: [facility] [address] [facility] [address] ANTHONY PARKER MD 12/25/2007 8:59 AM CDT 12/26/2007 12:15 AM CDT Randy Martinez DO LAB - CHEMISTRY ORDERABL ES Final Result Performing Organization Address [facility] [place] [address] * (ABNORMAL) BASIC METABOLIC PANEL (CALCIUM TOTAL) [...] 10.2 mg/dL [facility] Comment: Test Performed at: [place] [facility] [address] ANTHONY PARKER MD 12/25/2007 8:59 AM CDT 12/26/2007 12:15 AM CDT Randy Martinez DO LAB - CHEMISTRY ORDERABL ES Final Result Performing Organization Address [facility] [place] [address] from Last 3 Months or Most Recently Relevant to Health Maintenance Care Teams Supervising Producer Relationship Specialty Start Date End Date Randy Martinez DO [address] [place], [place] [address] [place] [address] PCP - General 12/23/07
--- OUTSIDE RECORDS SUMMARY | 2025-02-04 11:43 | XMS_ITS | Continuity of Care Document ---
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 [place], [place], [id number], [place]. tel:[phone] [facility], [address] [place], [place], [id number], [place] tel:[phone] [facility] DM with DR and Edema (chief complaint) DM, type 2, mild background retinopathy w/ macular edema, bilateral Dec-[address] [place], [place], [id number], [place]. tel:[phone] [facility], [address] [place] [address], [place], [id number], [place] tel:[phone] [facility] Dm with DR and edema (chief complaint) DM, type 2, mild background retinopathy w/ macular edema, bilateral Nov- 0- [address] [place], [place], [id number], [place]. tel:[phone] [facility], [address] [place] [address], [place], [id number], [place] tel:[phone] [facility] decreased vision (chief complaint) DM, type 2, mild background retinopathy w/ macular edema, bilateral Oct-[address] [place], [place], [address], [place]. tel:[phone] [facility], [address] [place], [place], [id number], [place] tel:[phone] [facility] DM with mild DR and macular edema (chief complaint) DM, type 2, mild background retinopathy w/ macular edema, bilateral Sep-[address] [place], [place], [id number], [place]. tel:[phone] [facility], [address] [place], [place], [id number], [place] tel:[phone] [facility] diabetic eye exam (chief complaint) DM, type 2, mild background retinopathy w/ macular edema, bilateralPost erior Capsule Opacification , left eye Mar- [address] [place], [place], [id number], [place]. tel:[phone] [facility], [address] [place], [place], [id number], [place] tel:[phone] [facility] DM (chief complaint) DM, type 2, mild background retinopathy w/ macular edema, bilateralPost erior Capsule Opacification , left eye [address] [place], [place], [id number], [place]. tel:[phone] [facility], [address] [place], [place], [id number], [place] tel:[phone] [facility] DM w/ mac edema (chief complaint) DM, type 2, mild background retinopathy w/ macular edema, bilateral Nov- [address] [place], [place], [id number], [place]. tel:[phone] [facility], [address] [place], [place], [id number], [place] tel:[phone] [facility] DME (chief complaint) DM, type 2, mild background retinopathy w/ macular edema, bilateral Feb-[address] [place], [place], [id number], [place]. tel:[phone] [facility], [address] [place], [place], [id number], [place] tel:[phone] [facility] DM, type 2, mild background retinopathy w/ macular emeka (chief complaint) DM, type 2, mild background retinopathy w/ macular edema, bilateral Dec-[address] [place], [place], [id number], [place]. tel:[phone] [facility], [address] [place], [place], [id number], [place] tel:[phone] [facility] diabetic eye exam (chief complaint) DM, type 2, mild background retinopathy w/ macular edema, bilateral Jul- [address] [place], [place], [id number], [place]. tel:[phone] [facility], [address] [place], [place], [address], [place] tel:[phone] [facility] diabetic eye exam (chief complaint) DM, type 2, mild background retinopathy w/ macular edema, bilateral Oct-[address] [place], [place], [id number], [place]. tel:[phone] [facility], [address] [place], [place], [address], [place] tel:[phone] [facility] diabetic eye exam (chief complaint) DM, type 2, mild background retinopathy w/ macular edema, bilateral [address] [place], [place], [id number], [place]. tel:[phone] [facility], [address] [place], [place], [id number], [place] tel:[phone] [facility] diabetic eye exam (chief complaint) DM, type 2, mild background retinopathy w/ macular edema, bilateral [address] [place], [place], [id number], [place]. tel:[phone] [facility], [address] [place], [place], [address], [place] tel:[phone] [facility] DM w/ mac edema (chief complaint) DM, type 2, mild background retinopathy w/ macular edema, bilateral [address] [place], [place], [id number], [place]. tel:[phone] [facility], [address] [place], [place], [address], [place] tel:[phone] [facility] diabetic eye exam (chief complaint) DM, type 2, mild background retinopathy w/ macular edema, bilateral [address] [place], [place], [address], [place]. tel:[phone] [facility], [address] [place], [place], [address], [place] tel:[phone] [facility] diabetic eye exam (chief complaint) DM, type 2, mild background retinopathy w/ macular edema, bilateral Oct- [address] [place], [place], [id number], [place]. tel:[phone] [facility], [address] [place], [place], [address], [place] tel:[phone] [facility] diabetic eye exam (chief complaint) DM, type 2, mild background retinopathy w/ macular edema, bilateral [address] [place], [place], [address], [place]. tel:[phone] [facility], [address] [place], [place], [id number], [place] tel:[phone] [facility] diabetic eye exam (chief complaint) DM, type 2, mild background retinopathy w/ macular edema, bilateral [address] [place], [place], [address], [place]. tel:[phone] [facility], [address] [place], [place], [id number], [place] tel:[phone] [facility] diabetic eye exam (chief complaint) DM, type 2, mild background retinopathy w/ macular edema, bilateral Nov-1 3-[address] [place], [place], [address], [place]. tel:[phone] [facility], [address] [place], [place], [id number], [place] tel:[phone] [facility] DM with macular edema (chief complaint) DM, type 2, mild background retinopathy w/ macular edema, bilateral Oct-1 5-[address] [place], [place], [address], [place]. tel:[phone] [facility], [address] [place], [place], [id number], [place] tel:[phone] [facility] diabetic eye exam (chief complaint) DM, type 2, mild background retinopathy w/ macular edema, bilateralPost erior Capsule Opacification , left eye Oct-1 0-[address] [place], [place], [address], [place]. tel:[phone] [facility], [address] [place], [place], [address], [place] tel:[phone] [facility] diabetic eye exam (chief complaint) DM, type 2, mild background retinopathy w/ macular edema, bilateral Apr-0 6-[address] [place], [place], [id number], [place]. tel:[phone] [facility], [address] [place], [place], [address], [place] tel:[phone] [facility] diabetic eye exam (chief complaint) DM, type 2, mild background retinopathy w/ macular edema, bilateral Dec-0 1-[address] [place], [place], [id number], [place]. tel:[phone] [facility], [address] [place], [place], [address], [place] tel:[phone] [facility] diabetic eye exam (chief complaint) DM, type 2, mild background retinopathy w/ macular edema, bilateral [address] [place], [place], [address], [place]. 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 Mild ASH PIT WORKER with edema OU.DESTINY OU DM with [...] stable. No complaints. Referred by Dr. Godoy ([place], [place]). was told there was swelling in the back of the eye to diabetes. Was given Ketorolac to use 2-3 times a day. BS - [id number] - Last A1C was 7.7 (05/21/2007) Functional Status Date Functional Assessmen t No Information Instructions Date Instruction Additional Infor valentin Return in PRN Related to DM, t ype 2, mild background retinopathy w/ macular edema, bilateral Impression/Plan - Ya g laser capsulotomy OS in future as symptoms dictate. Related to Posterior Capsule Opacification, left eye Impression/Plan - Av astin injection OD today. Eylea injection OS today. Risks, benefits, and alternatives reviewed with patient, who agrees to proceed.OD: DESTINY OD today; has been stable on DESTINY OD q8 weeks. Next appt with Dr. Correa's office at [facility] in [place] 10/10/20 (4 weeks from today). Given excellent BCVA OD, could consider observation or other regimen in an attempt to decrease her number of injections OD.OS: SUN OS today; continue q4 weeks as central DME continues to improve. Switched to Eylea OS 06/30/20 with good response. Next appt with Dr. Correa's office 10/10/20 (4 weeks from today). Patient is moving to [place] this month (September 2020). Has appointment with Dr. Mike Correa at [facility] in [facility] on 10/10/20. We will be [...] weeks on 09/12/20Patient will be moving to [facility] in September, recommend patient call [facility] department to set up appointment to continue care once she moves. 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 Domingo Hernandez for dilated exam and OCT (mac). DESTINY OD AND SUN OS on 09/12/20 Related to DM, type 2, mild background retinopathy w/ macular edema, bilateral Return in [address] weeks [facility] [address] Hernandez for mac OCT, dilated [...] next due 08/08/20Patient will be moving to [facility] in September, recommend patient call [facility] department to set up appointment to [...] in 4 weeks.DESTINY OD: next due on 07/12/2020.[id number] paperwork filled out/scanned today. Related to DM, [...] reviewed with patient, who agrees to proceed. DESTIYN OU today: Continue q8 weeks indefinitely. Related to DM, type 2, mild background retinopathy w/ macular edema, bilateral Follow up - Return i n [address] Hernandez for mac OCT, dilated exam and DESTINY OU. Related to DM, type 2, mild background retinopathy w/ macular edema, bilateral Return in [address] [facility] [address] Hernandez for mac OCT, dilated [...] Opacification, left eye Return in [address] [facility] [address] Hernandez for mac OCT, dilated [...] background retinopathy w/ macular edema, bilateral Oct- Impression/Plan - Re commend intravitreal Avastin injections [...] loss. 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
--- OUTSIDE RECORDS SUMMARY | 2025-02-04 11:44 | XMS_ITS | Patient Health Record ---
Author Organization [facility] Address [address] [place] [address] Care Team Providers Care Manager Transmission Name Role Phone Gale Sweeney PA-C Primary Care Provider Rashad Blue Unavailable [phone] Reason For Referral No Information Medications Medication SIG (Take, Route, Frequency, Duration) Notes Start Date End Date Status Furosemide 40 MG 1 tablet Orally Once a day Active Lisinopril 40 MG 1 tablet Orally Once a day Active Metoprolol Succinate ER 50 MG 1 tablet Orally Once a day Active Ketorolac Tromethamine 0.5 % 1 drop left eye Ophthalmic Four times a day 09/27/2016 Active Atorvastatin Calcium 40 MG 1 tablet Oral ly Once a day Active metFORMIN HCl 500 MG 1 tablet with meals Orally Twice a day Active Lantus 100 UNIT/ML 55 units Subcutaneou s at night Active NovoLOG 100 UNIT/ML sliding scale Subcutaneous Three times a day Active Ferrous Sulfate CR 325 mg 1 tablet Orall y Twice a day Active Spironolactone 25 MG 1 tablet Orally Onc e a day Active Problems Problem Type SNOMED Code ICD Code Onset Dates Problem Status W/U Status Risk Notes Problem Dermatochalasis of both upper eyelids (48471242836365541 ) Dermatochalasis of both upper eyelids (H02.831) Active confirmed Problem 62753769 Pseudophakia, gurpreet th eyes (Z96.1) Active confirmed Problem 404757539 Insulin long-ter m use (Z79.4) Active confirmed Problem 13991635 Bilateral presbyopia (H52.4) Active confirmed Problem 18193730 Type 2 diabetes mellitus with mild nonproliferative diabetic retinopathy with macular edema, bilateral (E11.3213) Active confirmed Plan Of Treatment No Information Insurance Providers Payer Name Payer Address Payer Phone Subscriber Number Group Number Insured Name Patient Relationship to Insured Coverage Start Date Coverage End Date [facility] [address] [place] [address] [id number] Michaela Irving Self - patient is the insured [facility] [address] [place] [address] [phone] [id number] Michaela Irving Self - patient is the insured Medical (General) History Medical History History ICD Code Type 2 diabetic since 2013, Dr. Sweeney Congestive heart failure PAST EYE MEDICATIONS USED Ofloxacin Prednisolone Ketorolac Surgical History Surgery Date(Month/Year) Cataract surgery with IOL OD by Dr. Deana llanos 08/24/2015 Cataract surgery with IOL OS by Dr. Deana llanos 08/10/2015 section x2 Hysterectomy Tubal ligation Hospitalization History Reason Date(Month/Year) For surgeries
--- OUTSIDE RECORDS SUMMARY | 2025-02-04 11:44 | XMS_ITS | Clinical Summary ---
Author Organization [facility] Address [address] [place] [address] Phone Care Team Providers Care Emissions Repair Technician Name Role Phone Terence Herrera MD Primary Care Provider [phone] Allergies No known active allergies Medications atorvastatin [...] on file Legal Sex Female 11:43 AM [facility] Gender Identity Not on file Sexual [...] 9:38 AM CDT Height 157.5 cm (5' 2) 06/26/2022 9:38 AM CDT Body Mass Index 42.62 06/26/2022 9:38 AM CDT Plan of Treatment Health Maintenance Due Date Last Done Comments Pneumococcal PPSV23/PCV13 65 + Years / Low and Medium Risk (2 of 3 - PPSV23) 2004 03/02/2002 Influenza Vaccine (Season Ended) 2025 06/08/20 21, 07/25/2003 Insurance [facility] Care Teams Emissions Repair Technician Relationship Specialty Start Date End Date Terence Herrera MD [address] [place] [address] PCP - General Family Medicine 10/08/21
[2025-02-04 16:36] LABS: Hematocrit 33.2 % (37.0-47.0); Hemoglobin 9.9 g/dL (12.0-15.0); Mean Corpuscular HGB Conc 29.8 g/dl (32-36); Mean Corpuscular Hemoglobin 33.2 pg (26-34); Mean Corpuscular Volume 111.4 fl (80-100); Mean Platelet Volume 12.3 fl (7.4-10.4); Platelet Count Result 260 k/mm3 (150-375); Red Blood Count 2.98 M/mm3 (4.2-5.4); Red Cell Distribution Width 13.2 % (11.5-14.5); White Blood Count 7.8 K/mm3 (4.5-10.0)
[2025-02-04 17:37] LABS: Albumin Level 3.3 g/dL (3.5-5.1); Anion Gap 8 mmol/L (4-12); Blood Urea Nitrogen 46 mg/dL (7-17); Calcium 8.9 mg/dL (8.4-10.2); Carbon Dioxide 18 mmol/L (22-30); Chloride 114 mmol/L (98-107); Estimated Glomerular Filt Rate 17; Glucose 124 mg/dL (65-110); Phosphorus 4.8 mg/dL (2.5-4.5); Potassium 4.2 mmol/L (3.4-5.0); Sodium 140 mmol/L (137-145)
[2025-02-04 18:22] LABS: Sodium Urine Random 123 meq/L
[2025-02-04 18:30] LABS: Creatinine Urine 31.7 mg/dL
[2025-02-04 18:47] LABS: Total Protein Urine Random > 600 mg/dL
[2025-02-04 18:48] LABS: Ur Ttl Prot Creatinine Ratio > 18.93 mg/mg (0-0.20)
[2025-02-04 18:50] LABS: Vitamin D 25 Hydroxy < 12.8 ng/mL
== END 2025-02-04 11:40 | disposition home or self-care (01) ==
PROVIDERS: Nurse Practitioner; PCP Internal Medicine; Visit Provider Internal Medicine Nephrology
DX: I12.9 Hypertensive chronic kidney disease with stage 1 through stage 4 chronic kidney disease, or unspecified chronic kidney disease (principal); N18.32 Chronic kidney disease, stage 3b; E11.22 Type 2 diabetes mellitus with diabetic chronic kidney disease; Z79.4 Long term (current) use of insulin; E55.9 Vitamin D deficiency, unspecified
CPT/HCPCS: 36415; 80069; 82306; 82570; 83036; 83970; 84156; 84300; 85027

== ENCOUNTER 2025-03-03 12:28 | Outpatient (CLI) | payer MEDICARE, SELFPAY ==
[2025-03-03 13:43] LABS: Alanine Aminotransferase 26 U/L (6-35); Albumin Level 3.3 g/dL (3.5-5.1); Alkaline Phosphatase 31 U/L (38-126); Anion Gap 7 mmol/L (4-12); Aspartate Amino Transferase 42 U/L (14-36); Bilirubin,Total 0.9 mg/dL (0.2-1.3); Blood Urea Nitrogen 38 mg/dL (7-17); Calcium 8.8 mg/dL (8.4-10.2); Carbon Dioxide 19 mmol/L (22-30); Chloride 117 mmol/L (98-107); Estimated Glomerular Filt Rate 17; Glucose 116 mg/dL (65-110); Potassium 5.2 mmol/L (3.4-5.0); Sodium 143 mmol/L (137-145); Total Protein 6.4 g/dL (6.3-8.2)
[2025-03-03 13:51] LABS: NT Pro B Type Natriuretic Pept 5900 pg/mL (19.9-100)
== END 2025-03-03 12:29 | disposition home or self-care (01) ==
PROVIDERS: PCP Nurse Practitioner; Visit Provider Nurse Practitioner
DX: R06.02 Shortness of breath (principal)
CPT/HCPCS: 36415; 80053; 83880

== ENCOUNTER 2025-03-03 14:36 | Inpatient (IN) | payer MEDICARE, SELFPAY ==
[2025-03-03] VITALS (38 sets, daily range): BP systolic 174–252; BP diastolic 42–192; PULSE 46–81; RESP 12–29; TEMP 36.5; O2SAT 91–100
--- NOTE | ~2025-03-03 | US_ITS ---
EXAMINATION: US venous doppler [facility] DATE: 03/03/2025 18:40 INDICATION: Swelling TECHNIQUE: Grayscale ultrasound images without and with compression and Doppler ultrasound images of the bilateral lower extremity veins were obtained. COMPARISON: 02/24/2024 FINDINGS: The visualized portions of right common femoral vein, profunda (deep) femoral vein, femoral vein, pop liteal vein, peroneal veins, posterior tibial veins, and greater saphenous vein outflow are patent. The visualized portions of left common femoral vein, profunda femoral vein, femoral vein, popliteal v ein, peroneal veins, posterior tibial veins, and greater saphenous vein outflow are patent. IMPRESSION: 1. No deep venous thrombosis. Reviewed, dictated and finalized at location A.
--- NOTE | ~2025-03-03 | US_ITS ---
US renal BI Ordering provider: Mary Ellen Rodriguez PA-C History: . increasing creatinine . Comparison: None. Technique: Ultrasound bilateral kidneys. Findings: RIGHT KIDNEY: Measures 11.3x 5.3x 5.5 cm in length which is normal in size. No renal cysts. No renal mass or visualized echogenic stones. Otherwise, normal echotexture and contour. No hydronephrosis. No rmal renal cortical thickness. LEFT KIDNEY: Measures 12.1x 6x 6.7 cm in length which is normal in size. Cysts are seen measuring 1.7 x 1.4 x 1.4 cm and 1.5 x 1.3 x 1.5 cm.. No renal mass or visualized echogenic stones. Otherwise, nor mal echotexture and contour. No hydronephrosis. Normal renal cortical thickness. BLADDER: Partially distended. Ureteral jets were seen bilaterally. IMPRESSION: Left renal cysts. Otherwise, Normal study. Reviewed, dictated and finalized at location A.
--- NOTE | ~2025-03-03 | XR_ITS ---
CHEST RADIOGRAPH, PA AND LATERAL CLINICAL HISTORY: SHOB with exertion, SWELLING TO LEGS . COMPARISON: 02/23/2024 TECHNIQUE: PA and lateral views of the chest. FINDINGS The cardiomediastinal silhouette is enlarged, unchanged. Increased interstitial markings are identified bilaterally, findings suggesting moderate pulmonary va scular congestion. Bilateral pleural effusions, right greater than left. The remainder of the lungs are clear. IMPRESSION: Moderate pulmonary vascular congestion with bilateral pleural effusions, right greater than left. Reviewed, dictated and finalized at location A.
--- NOTE | ~2025-03-03 | US_ITS ---
EXAMINATION: Limited bilateral renal ultrasound. US biopsy renal DATE: 03/10/2025 13:17 INDICATION: Hematuria, proteinuria, rising creatinine and hypertension TECHNIQUE: The procedure including the risks, benefits, and alternatives was discussed with the patie nt. Risks discussed included bleeding and infection. The patient understood the risks and benefits and agreed to proceed. Limited ultrasound examination was performed of the bilateral kidneys to determine optimal site for b iopsy. This demonstrated cortical thinning bilaterally without significant hydronephrosis or renal calculi. 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 For this reason, the right kidney was chosen. The skin overlying the right flank was prepped and draped in usual sterile fashion. Anesthetic was a dministered with 1% lidocaine subcutaneously as well as within the deep soft tissues of the right fla nk. A 17G introducer was placed using ultrasound guidance into the cortex of the right kidney, and the in ner needle removed. An 18-gauge biopsy device was then used to obtain 4 biopsy specimens under continuous sonographic alecia dance. The biopsy device was then removed, and specimen was brought to the pathologist in order to co nfirm adequacy. Adequacy was not confirmed, requiring additional specimen. The patient was unable to tolerate prone positioning, and so lateral decubitus positioning was chosen . The skin overlying the right flank was reprepped and redraped in usual sterile fashion. Anesthetic w as administered with 1% lidocaine subcutaneously as well as within the deep soft tissues of the right flank. A 17G introducer was placed using ultrasound guidance into the cortex of the right kidney, and the in ner needle removed. An 18-gauge biopsy device was then used to obtain 4 additional biopsy specimens under continuous sono graphic guidance. The biopsy device was then removed, and specimen was brought to the pathologist in order to confirm adequacy. Once adequacy of the additional specimen was confirmed, all devices were removed and a sterile dressi ng applied. Postbiopsy imaging was without active extravasation from the right kidney. There were no immediate complications. The patient tolerated the procedure without difficulty, and was transported to the recovery area with out incident. IMPRESSION: 1. Technically successful ultrasound-guided core needle biopsy of the right kidney, x2. The patient will then be in the flat, supine position (reverse Trendelenburg is okay) with strict rig ht leg extension for a total of 6 hours prior to mobility to ensure adequate hemostasis. Reviewed, dictated and finalized at location A. IMPRESSION: 1. Technically successful ultrasound-guided core needle biopsy of the right kid raúl, x2. The patient will then be in the flat, supine position (reverse Trendelenburg is okay) with strict right leg extension for a total of 6 hours prior to mobility to ensure adequate hemostasis.
--- NOTE | ~2025-03-03 | CT_ITS ---
CLINICAL INDICATION: Episode of hypotension following renal biopsy performed approximately 4 hours ea rlier COMPARISON: None. TECHNIQUE: Multiple contiguous axial images of the abdomen and pelvis were performed without the admi nistration of intravenous contrast The dose-length product (DLP) was 1451.95 mGy-cm. Automated exposure control and iterative reconstruction technique were employed. FINDINGS/OBSERVATIONS: Visualized lower thorax: Trace bibasilar atelectasis. The remainder of the bilateral lung bases are clear The heart is of normal size, without significant pericardial effusion. Small hiatal hernia is present. Liver: The liver demonstrates homogeneous attenuation and is not enlarged.. Gallbladder and biliary system: The gallbladder is only minimally distended, and otherwise unremarkable. Pancreas: Limited evaluation of the pancreas secondary to the lack of intravenous contrast. Spleen: Punctate calcifications identified within the splenic parenchyma, suggesting prior granulomat ous disease. The remainder of the spleen demonstrates otherwise homogeneous attenuation and is not enlarged. Kidneys: Within the right retroperitoneum, caudal to the right kidney is a complex focus of increased attenuat ion, consistent with hemorrhage. This focus measures 7.3 x 8.4 x 10.9 cm. Mass effect on the kidney is also noted, with anterior migra tion of the right kidney, and right renal vein. Increased attenuation is identified within the interpolar region of the right kidney, consistent with biopsy site. Redemonstration of the (likely) angiomyolipoma within the lower pole of the left kidney, described on renal biopsy ultrasound. Adrenal glands: Unremarkable. Gastrointestinal tract: Fecal stasis within the colon. Appendix: Surgically absent. Vasculature: The inferior vena cava is slit like, consistent with severe hypovolemia. Lymph nodes: Limited evaluation without intravenous contrast. Pelvic structures: The bladder is only minimally distended, and contains a thin layer of increased attenuation, likely h emorrhage.. The uterus is either surgically absent or markedly atrophic.. Body wall and musculoskeletal: Small fat-containing umbilical hernia. Age-appropriate degenerative disease within the lower thoracic and lumbosacral spine, without blastic or lytic lesions identified. IMPRESSION: Acute hemorrhage from the site of renal biopsy, performed approximately 4 hours earlier. Findings within the inferior vena cava suggestive of severe hypovolemia for which aggressive resuscit ation is recommended. Recommend: Transfer to an institution with vascular interventional radiology for coil embolization of the bleedi ng site in the right kidney. These findings and recommendations were discussed with the patient, Dr. Stark as well as the patient 's nurse at the time of examination and interpretation (at 4:20 PM on 03/10/2025). Reviewed, dictated and finalized at location A. IMPRESSION: Acute hemorrhage from the site of renal biopsy, performed approximately 4 hours earlier. Findings within the inferior vena cava suggestive of severe hypovolemia for whi ch aggressive resuscitation is recommended. Recommend: Transfer to an institution with vascular interventional radiology for coil embo lization of the bleeding site in the right kidney. These findings and recommendations were discussed with the patient, Dr. Stark as well as the patient's nurse at the time of examination and interpretation (a t 4:20 PM on 03/10/2025).
--- NOTE | ~2025-03-03 | US_ITS ---
EXAMINATION: US retroperitoneal duplex ltd DATE: 03/05/2025 11:58 INDICATION: Renal artery stenosis TECHNIQUE: Multiple grayscale, color Doppler, and pulsed Doppler images of the kidneys and renal katy moira were obtained. COMPARISON: None. FINDINGS: The aorta peak systolic velocity is 152 cm/s. The right renal artery peak systolic velocity is 78 cm/ s in the proximal segment, 86 cm/s in the mid segment, and 96 cm/s in the distal segment. The left re nal artery peak systolic velocity is 42 cm/s in the proximal segment, 54 cm/s in the mid segment, and 79 cm/s in the distal segment. IMPRESSION: 1. No Doppler evidence of renal artery stenosis. Reviewed, dictated and finalized at location A.
--- NOTE | 2025-03-03 17:06 | ECG_ITS ---
Test Date: 2025-03-03 18:36:52 Measurements Intervals [place] Rate: 47 P: 25 MS: 197 QRS: 15 QRSD: 90 T: 82 QT: 466 QTc: 412 Interpretive Statements SINUS BRADYCARDIA DELAYED PRECORDIAL R/S TRANSITION NONSPECIFIC ST & T-WAVE ABNORMALITY- HIGH LATERAL LEADS BASELINE ARTIFACT- I, II, III, AVR, AVF, V4 BORDERLINE ECG Compared to ECG 02/23/2024 19:02:51 HEART RATE HAS DECREASED Electronically Signed On 03-03-2025 20:25:37 CDT by Ru Horta D.O.
[2025-03-03 17:19] LABS: Hematocrit 33.5 % (37.0-47.0); Hemoglobin 10.8 g/dL (12.0-15.0); Immature Granulocyte Percent A 0.4 % (0-0.5); Lymphocytes Absolute Auto 2.79 K/mm3 (0.9-3.2); Mean Corpuscular HGB Conc 32.2 g/dl (32-36); Mean Corpuscular Hemoglobin 32.9 pg (26-34); Mean Corpuscular Volume 102.1 fl (80-100); Nucleated Red Blood Cells Absolute Auto 0.000 K/mm3 (0.0-0.012); Nucleated Red Blood Cells Perc 0.0 % (0.0-0.2); Platelet Count Result 273 k/mm3 (150-375); Red Blood Count 3.28 M/mm3 (4.2-5.4); White Blood Count 10.1 K/mm3 (4.5-10.0)
[2025-03-03 17:28] LABS: Alanine Aminotransferase 25 U/L (6-35); Albumin Level 3.5 g/dL (3.5-5.1); Alkaline Phosphatase 62 U/L (38-126); Anion Gap 7 mmol/L (4-12); Aspartate Amino Transferase 26 U/L (14-36); Bilirubin,Total 0.4 mg/dL (0.2-1.3); Blood Urea Nitrogen 36 mg/dL (7-17); Calcium 9.2 mg/dL (8.4-10.2); Carbon Dioxide 20 mmol/L (22-30); Chloride 117 mmol/L (98-107); Estimated Glomerular Filt Rate 15; Glucose 100 mg/dL (65-110); Potassium 4.0 mmol/L (3.4-5.0); Sodium 144 mmol/L (137-145); Total Protein 6.6 g/dL (6.3-8.2)
[2025-03-03 17:31] LABS: INR 1.0; Prothrombin Time 12.8 Seconds (11.1-14.7)
[2025-03-03 17:32] LABS: Partial Thromboplastin Time 30.9 Seconds (22.3-36.8)
--- NOTE | 2025-03-03 17:44 | ED_ITS ---
HPI - Recheck/Abnormal Lab/Rx General Chief Complaint: Recheck/Abnormal Lab/Rx <Jocelyn Cárdenas PA-C - Last Filed: 03/03/25 20:53> Stated Complaint: abn labs <Jocelyn Cárdenas PA-C - Last Filed: 03/03/25 20:53> Time Seen by Provider: 03/03/25 16:59 <Jocelyn Cárdenas PA-C - Last Filed: 03/03/25 20:53> Source: patient and old records reviewed <MORALES Hernandez Last Filed: 03/03/25 20:53> Mode of arrival: ambulatory <MORALES Hernandez Last Filed: 03/03/25 20:53> Limitations: no limitations <MORALES Hernandez Last Filed: 03/03/25 20:53> History of Present Illness HPI narrative: Patient is a 69-year-old female, with PMH of CKD, DM, HTN, HLD, JAMES who presents the ED with report of abnormal labs. Patient reports she has been feeling increasingly short of breath, worse with exertion over the past 1 month. States she used to be able to walk a 1/2 mi before becoming winded around 1 month ago. Lately, she reports she can hardly walk half a block before becoming very short of breath. Does report shortness of breath with laying flat, require several pillows. She also reports having increased swelling in her lower extremities over the past 1 month. Saw her physical therapy resident, Dr. Horta, yesterday, who increased her hydralazine, discontinued her amlodipine, and switched her Lasix 20mg BID to bumex 1mg BID. Patient has not been able to start the Bumex yet as the pharmacy did not have this medication. She followed up with her primary care doctor today, had labs drawn, and was referred to the ED for further evaluation of CHF. Patient reports remote history of CHF. Unsure of last echo. Per records, she has history of diastolic dysfunction. She denies dizziness, lightheadedness, chest pain, pain in her legs. <Jocelyn Cárdenas PA-C - Last Filed: 03/03/25 20:53> Related Data Home Medications: Home Medications ?Medication ?Instructions ?Recorded ?Confirmed ?Last Taken ?Type ferrous sulfate 325 mg (65 mg 325 mg PO QAM 12/12/20 03/03/25 Unknown History iron) tablet ascorbic acid (vitamin C) 250 mg 250 mg PO QAM 01/30/23 03/03/25 Unknown History chewable tablet cholecalciferol (vitamin D3) 50 50 mcg PO QAM 02/17/23 03/03/25 Unknown History mcg (2,000 unit) capsule aspirin 81 mg tablet,delayed 81 mg PO DAILY 10/12/24 03/03/25 Unknown History release <Jocelyn Cárdenas PA-C - Last Filed: 03/03/25 20:53> Allergies/Adverse Reactions: Allergies Allergy/AdvReac Type Severity Reaction Status Date / Time No Known Allergies Allergy Verified 03/03/25 11:05 <Jocelyn Cárdenas PA-C - Last Filed: 03/03/25 20:53> Review of Systems 2 Review of Systems: All systems reviewed & are unremarkable except as noted in HPI. <Jocelyn Cárdenas PA-C - Last Filed: 03/03/25 20:53> All systems reviewed & are unremarkable except as noted in HPI and below < Jocelyn Cárdenas PA-C - Last Filed: 03/03/25 20:53> [facility] Past Medical History Medical History: Medical History Recurrent UTI Osteoarthritis of left knee Obstructive sleep apnea on CPAP Hyperlipidemia Insulin dependent type 2 diabetes mellitus Diastolic dysfunction Echo in February 2021 showed normal LV systolic function with an EF of 70 75% incident normal diastolic dysfunction grade 2. Closed intertrochanteric fracture of right hip (08/2022) Chronic kidney disease, stage 3b Hypertension <Jocelyn Cárdenas PA-C - Last Filed: 03/03/25 20:53> Surgical History Surgical History: Surgical History History of hip surgery Right 08/2022 History of tubal ligation History of open reduction and internal fixation (ORIF) procedure Repair of right ankle fracture. History of cataract extraction (08/2015) History of open reduction and internal fixation (ORIF) procedure (09/05/22) Right hip trochanteric nail with hip screw. History of section (01/20/85) History of section (03/18/88) History of hysterectomy (08/1998) <Jocelyn Cárdenas PA-C - Last Filed: 03/03/25 20:53> Family History Family History: Family History Father Diabetes mellitus Heart disease Acute myocardial infarction Mother , 04/28/2000 Breast cancer Alzheimer's dementia Grandparent Cerebrovascular accident maternal grandfather Acute myocardial infarction <Jocelyn Cárdenas PA-C - Last Filed: 03/03/25 20:53> Social History Social History: Social History Social History: Caffeine-coffee Surrogate medical decision maker: Nikolai Christian, spouse. Code status: Full code. Smoking status: Never smoker Second hand tobacco smoke exposure: Yes Alcohol intake: current Alcohol use details: 1 glass of wine a month. Substance use: never Substance use type: does not use Do You Feel Safe in your Home?: Yes Lack of Transportation: No Lack of Food: Never True Current Housing: I Have Housing Concerned About Future Housing: No Difficulty Paying Gas/Electric Bills: No Difficulty Paying for Meds: No Currently Unemployed: No Education: High School Diploma/GED Difficulty w/ Childcare or Family Care: No Living arrangements: with family Additional living arrangements comments: Lives with spouse in [place]. They have 2 adult children, a son and daughter. 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 Gender identity (if verbalized by the patient): Female Spiritual care concerns: No <Jocelyn Cárdenas PA-C - Last Filed: 03/03/25 20:53> Exam 2 Narrative: GENERAL: Well appearing, obese, non-toxic, in no acute distress. HEAD: Normocephalic, atraumatic. RESPIRATORY: Airway patent, respirations nonlabored. Mild rhonchi in bases bilaterally. No wheezing. Distress. CARDIOVASCULAR: Bradycardic with regular rhythm without murmurs, rubs, or gallops. Pedal pulses are intact. MUSCULOSKELETAL: Moves all extremities. No gross deformities. Diffuse pitting edema throughout bilateral lower extremities, extending up to mid thighs. Appears symmetric bilaterally. No warmth or erythema. No significant calf tenderness. SKIN: Warm, dry, normal color. NEURO: A&O X3. Speech clear. Cranial nerves II-XII grossly intact. Steady gait. No ataxic movements. PSYCHIATRIC: Appropriate mood and affect. Normal interaction. <Jocelyn Cárdenas PA-C - Last Filed: 03/03/25 20:53> Course JEWELRY COATER/PA Physician Supervision For this patient encounter, I reviewed the JEWELRY COATER or PA documentation, treatment plan, and medical decision making; and I had [id number] time with this patient. <Kieran Martinez MD - Last Filed: 03/03/25 23:57> Vital Signs Vital signs: Vital Signs Temperature 97.7 F 03/03/25 14:47 Pulse Rate 63 03/03/25 14:47 Respiratory Rate 16 03/03/25 14:47 Blood Pressure 228/57 H 03/03/25 14:47 Pulse Oximetry 94 03/03/25 14:47 Temperature 97.7 F 03/03/25 14:47 Pulse Rate 58 L 03/03/25 22:41 Respiratory Rate 19 03/03/25 22:41 Blood Pressure 174/44 H 03/03/25 22:41 Pulse Oximetry 97 03/03/25 22:41 <Jocelyn Cárdenas PA-C - Last Filed: 03/03/25 20:53> Vital Signs Temperature 97.7 F 03/03/25 14:47 Pulse Rate 63 03/03/25 14:47 Respiratory Rate 16 03/03/25 14:47 Blood Pressure 228/57 H 03/03/25 14:47 Pulse Oximetry 94 03/03/25 14:47 Temperature 97.7 F 03/03/25 14:47 Pulse Rate 58 L 03/03/25 22:41 Respiratory Rate 19 03/03/25 22:41 Blood Pressure 174/44 H 03/03/25 22:41 Pulse Oximetry 97 03/03/25 22:41 <Kieran Martinez MD - Last Filed: 03/03/25 23:57> MDM - Recheck/Abnormal Lab/Rx MDM Narrative Medical decision making narrative: Patient presented to ED with abnormal labs, concern for CHF. Reports shortness of breath/STUART/BLE swelling for the past 1 month. Patient significantly hypertensive upon arrival. Does hx of HTN, on multiple medications for this. Hydralazine 50mg TID (increased from BID yesterday), irbesartan 300mg, nebivolol 20mg. Given dose of hydralazine 50mg po in the ED, only taken this once today. Vital signs are stable. Oxygen stable on room air. EKG was sinus bradycardia, nonspecific ST changes Baseline troponin did result elevated at 0.043. Possibly demand ischemia. She is denying chest pain at this time. BNP elevated at 6880. Given dose of IV Lasix 40mg in the ED. Chest x-ray with pulmonary vascular congestion, bilateral pleural effusions. Venous Doppler US negative for DVT. Remainder of laboratory studies notable for mild anemia, consistent with previous records. Slight JAMIA superimposed on CKD. Will need very cautious diuresis. Patient will be admitted for further evaluation, diuresis, management of CHF, BP control. BP has improved slightly to low 200s with nitro paste. Will continue to monitor. Will be due for night time dose of hydralazine tonight. Discussed case with Mary Ellen KUMAR hospitalist, accepted patient for admission. Patient family in agreement with plan and need for admission. IMU status. <Jocelyn Cárdenas PA-C - Last Filed: 03/03/25 20:53> Medical Records Attestation: I reviewed the patient's medical records. <Jocelyn Cárdenas PA-C - Last Filed: 03/03/25 20:53> Lab Data Attestation: I reviewed the patient's lab results. <MORALES Hernandez Last Filed: 03/03/25 20:53> Result diagrams: 03/03/25 17:14 03/03/25 17:14 <MORALES Hernandez Last Filed: 03/03/25 20:53> Labs: Lab Results 03/03/25 03/03/25 Range/Units 17:14 18:41 WBC 10.1 H (4.5-10.0) K/mm3 RBC 3.28 L (4.2-5.4) M/mm3 Hgb 10.8 L (12.0-15.0) g/dL Hct 33.5 L (37.0-47.0) % MCV 102.1 H (80-100) fl MCH 32.9 (26-34) pg MCHC 32.2 (32-36) g/dl RDW 13.2 (11.5-14.5) % Plt Count 273 (150-375) k/mm3 MPV 11.3 H (7.4-10.4) fl Immature Gran % (Auto) 0.4 (0-0.5) % Neut % (Auto) 62.3 (45.5-73.1) % Lymph % (Auto) 27.6 (18.3-44.2) % [place] % (Auto) 6.4 (2.6-8.5) % Eos % (Auto) 2.4 (0-4.4) % Baso % (Auto) 0.9 (0.2-1.2) % Lymph # (Auto) 2.79 (0.9-3.2) K/mm3 [place] # (Auto) 0.7 H (0.1-0.6) K/mm3 Eos # (Auto) 0.2 (0-0.3) K/mm3 Baso # (Auto) 0.1 (0.0-0.1) K/mm3 Abs Immat Gran (auto) 0.04 H (0.00-0.031) K/mm3 Absolute Neuts (auto) 6.3 (1.3-6.7) K/mm3 Absolute Nucleated RBC 0.000 (0.0-0.012) K/mm3 Nucleated RBC % 0.0 (0.0-0.2) % PT 12.8 (11.1-14.7) Seconds INR 1.0 APTT 30.9 (22.3-36.8) Seconds Sodium 144 (137-145) mmol/L Potassium 4.0 (3.4-5.0) mmol/L Chloride 117 H (98-107) mmol/L Carbon Dioxide 20 L (22-30) mmol/L Anion Gap 7 (4-12) mmol/L BUN 36 H (7-17) mg/dL Creatinine 3.03 H (0.7-1.0) mg/dL Estim Creat Clear Calc Not Reportable Estimated GFR 15 L (59 - ) Glucose 100 (65-110) mg/dL POC Capillary Glucose 70 (65-105) mg/dl Calcium 9.2 (8.4-10.2) mg/dL Total Bilirubin 0.4 (0.2-1.3) mg/dL AST 26 (14-36) U/L ALT 25 (6-35) U/L Alkaline Phosphatase 62 (38-126) U/L Troponin I 0.043 H* (0.000-0.034) ng/mL NT-Pro-B Natriuret Pep 6880 H (19.9-100) pg/mL Total Protein 6.6 (6.3-8.2) g/dL Albumin 3.5 (3.5-5.1) g/dL <Jocelyn Cárdenas PA-C - Last Filed: 03/03/25 20:53> Lab Results 03/03/25 03/03/25 Range/Units 17:14 18:41 WBC 10.1 H (4.5-10.0) K/mm3 RBC 3.28 L (4.2-5.4) M/mm3 Hgb 10.8 L (12.0-15.0) g/dL Hct 33.5 L (37.0-47.0) % MCV 102.1 H (80-100) fl MCH 32.9 (26-34) pg MCHC 32.2 (32-36) g/dl RDW 13.2 (11.5-14.5) % Plt Count 273 (150-375) k/mm3 MPV 11.3 H (7.4-10.4) fl Immature Gran % (Auto) 0.4 (0-0.5) % Neut % (Auto) 62.3 (45.5-73.1) % Lymph % (Auto) 27.6 (18.3-44.2) % [place] % (Auto) 6.4 (2.6-8.5) % Eos % (Auto) 2.4 (0-4.4) % Baso % (Auto) 0.9 (0.2-1.2) % Lymph # (Auto) 2.79 (0.9-3.2) K/mm3 [place] # (Auto) 0.7 H (0.1-0.6) K/mm3 Eos # (Auto) 0.2 (0-0.3) K/mm3 Baso # (Auto) 0.1 (0.0-0.1) K/mm3 Abs Immat Gran (auto) 0.04 H (0.00-0.031) K/mm3 Absolute Neuts (auto) 6.3 (1.3-6.7) K/mm3 Absolute Nucleated RBC 0.000 (0.0-0.012) K/mm3 Nucleated RBC % 0.0 (0.0-0.2) % PT 12.8 (11.1-14.7) Seconds INR 1.0 APTT 30.9 (22.3-36.8) Seconds Sodium 144 (137-145) mmol/L Potassium 4.0 (3.4-5.0) mmol/L Chloride 117 H (98-107) mmol/L Carbon Dioxide 20 L (22-30) mmol/L Anion Gap 7 (4-12) mmol/L BUN 36 H (7-17) mg/dL Creatinine 3.03 H (0.7-1.0) mg/dL Estim Creat Clear Calc Not Reportable Estimated GFR 15 L (59 - ) Glucose 100 (65-110) mg/dL POC Capillary Glucose 70 (65-105) mg/dl Calcium 9.2 (8.4-10.2) mg/dL Total Bilirubin 0.4 (0.2-1.3) mg/dL AST 26 (14-36) U/L ALT 25 (6-35) U/L Alkaline Phosphatase 62 (38-126) U/L Troponin I 0.043 H* (0.000-0.034) ng/mL NT-Pro-B Natriuret Pep 6880 H (19.9-100) pg/mL Total Protein 6.6 (6.3-8.2) g/dL Albumin 3.5 (3.5-5.1) g/dL <Kieran Martinez MD - Last Filed: 03/03/25 23:57> Imaging Data Attestation: I personally reviewed and interpreted this imaging study as follows: < Jocelyn Cárdenas PA-C - Last Filed: 03/03/25 20:53> Radiologist's impression: ITS Impressions Chest X-Ray 03/03/25 17:45 IMPRESSION: Moderate pulmonary vascular congestion with bilateral pleural effusions, right greater than left. Venous Doppler Study 03/03/25 18:57 IMPRESSION: 1. No deep venous thrombosis. <MORALES Hernandez Last Filed: 03/03/25 20:53> ECG Data EKG #1: Attestation: I personally reviewed and interpreted this ECG as follows: <Jocelyn Cárdenas PA-C - Last Filed: 03/03/25 20:53> ECG completion date: 03/03/25 <MORALES Hernandez Last Filed: 03/03/25 20:53> ECG completion time: 18:36 <MORALES Hernandez Last Filed: 03/03/25 20:53> EKG Interpretation: bradycardia (47), sinus rhythm and non-specific ST changes <MORALES Hernandez Last Filed: 03/03/25 20:53> Discharge Plan Discharge Clinical Impression: Acute diastolic CHF (congestive heart failure), Acute kidney injury superimposed on CKD, Elevated troponin, Elevated blood pressure reading with diagnosis of hypertension <MORALES Hernandez Last Filed: 03/03/25 20:53> Patient Disposition: Still a Patient <MORALES Hernandez Last Filed: 03/03/25 20:53> Condition: Stable <MORALES Hernandez Last Filed: 03/03/25 20:53>
[2025-03-03 17:45] LABS: NT Pro B Type Natriuretic Pept 6880 pg/mL (19.9-100); Troponin I 0.043 ng/mL (0.000-0.034)
--- NOTE | 2025-03-03 18:26 | PC.NURSE ---
Ultrasound at bedside
[2025-03-03] MEDS: NITROGLYCERIN OINTMENT 1 INCH DOSE TRANSDERM (19:45)
[2025-03-03] MEDS: FUROSEMIDE INJ 40 MG/4 ML VIAL IV PUSH (19:46)
--- NOTE | 2025-03-03 20:25 | ECG_ITS ---
Test Date: 2025-03-03 20:29:21 Measurements Intervals [place] Rate: 45 P: 17 IA: 167 QRS: 9 QRSD: 93 T: 77 QT: 462 QTc: 401 Interpretive Statements SINUS BRADYCARDIA WITH SINUS ARRHYTHMIA BORDERLINE R WAVE PROGRESSION, ANTERIOR LEADS ST-T WAVE ABNORMALITY IN HIGH LATERAL LEADS- CONSIDER ISCHEMIA BASELINE ARTIFACT- I, II, III, AVR, AVL, AVF, V4 ABNORMAL ECG Compared to ECG 03/03/2025 18:36:52 POSSIBLE ISCHEMIA NOW PRESENT Electronically Signed On 03-03-2025 20:38:59 CDT by Ru Horta D.O.
[2025-03-03 21:17] LABS: Troponin I 0.040 ng/mL (0.000-0.034)
--- NOTE | 2025-03-03 23:25 | P.HP_ITS ---
H&P: HPI History of Present Illness Date/Time: 03/03/25 21:00 Chief Complaint: Abnormal labs, elevated blood pressure. Narrative: This is a very pleasant 69-year-old female with insulin-dependent type 2 diabetes mellitus, hypertension, diastolic dysfunction chronic kidney disease, obstructive sleep apnea, gastroesophageal reflux disease, depression, and anxiety who presented to the emergency department via private vehicle for evaluation of abnormal labs and elevated blood pressures. She gives at least a month long history of increasing bilateral lower extremity edema and progressive dyspnea on exertion and has seen her educational resource center teacher, Dr. Horta, and decontaminator, Dr. Cruz recently and had some medication changes due to uncontrolled blood pressures and worsening renal function (amlodipine discontinued, nebivolol increased, max dose irbesartan, and hydralazine t.i.d.). Today she had a follow- up appointment with her primary care provider and was referred to the emergency department for evaluation due to continued high blood pressures (systolics over 200) and increasing creatinine. She does not really have any complaints aside from those as listed above. With further questioning she admits that her appetite has been poor the last couple of after the unexpected of her from an [place]. She denies fever, cold and flu symptoms, chest pain, orthopnea, calf pain, cough, nausea, vomiting, diarrhea, and dysuria. In the ED: Blood pressure was 228/57 on arrival. The remainder of her vital signs were stable. Labs were significant for a WBC count of 10.1, hemoglobin 10.8, MCV 102.1, chloride 117, carbon dioxide 20, anion gap 7, BUN 36, creatinine 3.03, troponin 0.043, proBNP 6880, albumin 3.5. EKG showed sinus bradycardia with nonspecific ST and T-wave abnormalities in the high lateral l kimberly and delayed precordial R/S transition. Lower extremity venous Doppler ultrasounds were negative for DVT. Chest x-ray showed moderate pulmonary vascular congestion with bilateral pleural effusions, right greater than left. She received furosemide 40 mg IV, hydralazine 10 mg IV, and 1 in nitroglycerin paste. She is being admitted in this setting for further treatment of poorly controlled hypertension, volume overload, and worsening kidney function Review of Systems Review of Systems: 12 systems were reviewed and are negativ e except for as per HPI. [facility] Past Medical History Medical History Recurrent UTI Osteoarthritis of left knee Obstructive sleep apnea on CPAP Hyperlipidemia Insulin dependent type 2 diabetes mellitus Diastolic dysfunction Echo in February 2021 showed normal LV systolic function with an EF of 70 75% incident normal diastolic dysfunction grade 2. Closed intertrochanteric fracture of right hip (08/2022) Chronic kidney disease, stage 3b Hypertension Surgical History Surgical History History of hip surgery Right 08/2022 History of tubal ligation History of open reduction and internal fixation (ORIF) procedure Repair of right ankle fracture. History of cataract extraction (08/2015) History of open reduction and internal fixation (ORIF) procedure (09/05/22) Right hip trochanteric nail with hip screw. History of section (01/20/85) History of section (03/18/88) History of hysterectomy (08/1998) Family History Family History Father Diabetes mellitus Heart disease Acute myocardial infarction Mother , 04/28/2000 Breast cancer Alzheimer's dementia Grandparent Cerebrovascular accident maternal grandfather Acute myocardial infarction Social History Social History (Updated 03/04/25 @ 00:23 by Mary Ellen Rodriguez PA-C) Social History: Surrogate medical decision maker: Lynn Barrera and Abhi Christian, children. Code status: Full code. Smoking status: Never smoker Second hand tobacco smoke exposure: Yes Alcohol intake: current Alcohol use details: 1 glass of wine a month. Substance use: never Substance use type: does not use Do You Feel Safe in your Home?: Yes Lack of Transportation: No Lack of Food: Never True Current Housing: I Have Housing Concerned About Future Housing: No Difficulty Paying Gas/Electric Bills: No Difficulty Paying for Meds: No Currently Unemployed: No Education: High School Diploma/GED Difficulty w/ Childcare or Family Care: No Living arrangements: with family Additional living arrangements comments: as of February 2025. She 2 adult children, a son who is local and daughter who lives in [place]. 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 Spiritual care concerns: No Meds Home Medications and Allergies Home Medications ?Medication ?Instructions ?Recorded ?Confirmed ?Type ferrous sulfate 325 mg (65 mg 325 mg PO QAM 12/12/20 03/03/25 History iron) tablet ascorbic acid (vitamin C) 250 mg 250 mg PO QAM 01/30/23 03/03/25 History chewable tablet cholecalciferol (vitamin D3) 50 50 mcg PO QAM 02/17/23 03/03/25 History mcg (2,000 unit) capsule pen needle, diabetic 29 gauge x #400 ea 12/11/23 03/03/25 Rx 1/2 (BD Ultra-Fine Original Pen Needle) blood sugar diagnostic (OneTouch #50 ea 03/26/24 03/03/25 Rx Ultra Test strips) flash glucose scanning reader #1 ea 07/09/24 03/03/25 Rx (FreeStyle Caryn 2 [place]) pravastatin 10 mg tablet See Rx Instructions .Route 09/30/24 03/03/25 Rx .COMPLEX #90 tabs aspirin 81 mg tablet,delayed 81 mg PO DAILY 10/12/24 03/03/25 History release blood-glucose sensor (FreeStyle #2 ea 10/22/24 03/03/25 Rx Caryn 2 Plus Sensor device) insulin glargine 100 unit/mL (3 40 unit (0.4 mL) subcut QPM #15 mL 12/02/24 03/03/25 Rx mL) subcutaneous pen (Lantus Solostar U-100 Insulin) irbesartan 300 mg tablet 300 mg PO DAILY #90 tabs 12/02/24 03/03/25 Rx nitrofurantoin macrocrystal 50 mg 50 mg PO QHS #90 caps 12/02/24 03/03/25 Rx capsule nebivolol 20 mg tablet 20 mg PO DAILY #30 tabs 02/08/25 03/03/25 Rx sodium bicarbonate 650 mg tablet 650 mg PO BIDWMEAL #60 tabs 02/08/25 03/03/25 Rx bumetanide 1 mg tablet 1 mg PO BID #60 tabs 03/02/25 03/03/25 Rx hydralazine 50 mg tablet See Rx Instructions .Route 03/02/25 03/03/25 Rx .COMPLEX #90 tabs insulin aspart U-100 100 unit/mL 13 unit (0.13 mL) subcut TID #15 mL 03/02/25 03/03/25 Rx (3 mL) subcutaneous pen Allergies Allergy/AdvReac Type Severity Reaction Status Date / Time No Known Allergies Allergy Verified 03/03/25 11:05 Vital Signs Vital Signs - 24 hr 03/03/25 14:47 03/03/25 17:00 03/03/25 17:30 Temperature 97.7 F Pulse Rate 63 52 L 47 L Respiratory Rate 16 22 H 20 Blood Pressure 228/57 H 241/77 H 233/73 H Pulse Oximetry 94 99 97 03/03/25 18:30 03/03/25 19:00 03/03/25 19:50 Temperature Pulse Rate 50 L 50 L 49 L Respiratory Rate 20 18 20 Blood Pressure 252/70 H 237/62 H 242/73 H Pulse Oximetry 98 98 98 03/03/25 20:30 03/03/25 21:00 03/03/25 22:41 Temperature Pulse Rate 49 L 56 L 58 L Respiratory Rate 22 H 19 19 Blood Pressure 218/91 H 199/62 H 174/44 H Pulse Oximetry 99 99 97 Exam Narrative: General: Nontoxic-appearing female sitting up in bed in no acute distress. HEENT: PERRL, EOMI. Sclera anicteric. Moist mucous membranes. Oropharynx is clear. Neck: Supple. No obvious JVD. Respiratory: Respirations are nonlabored and she is speaking in full sentences. Lung sounds are a bit diminished at the bases with faint crackles on the right. Cardiovascular: Regular rate and rhythm with S1-S2. Soft systolic murmur at the left sternal border. Gastrointestinal: Abdomen is soft, nontender, and nondistended with positive bowel sounds. Skin: Warm and dry. Extremities: No cyanosis or clubbing. Tight, 3+ pitting edema of the lower legs up to the knees. No palpable knots or cords. Negative Steven sign bilaterally. Peripheral pulses intact. Neurological: Alert. Cranial nerves grossly intact. No gross focal deficits to casual conversation. Psychiatric: Pleasant and cooperative with normal mood and affect. Judgment and insight intact. H&P: Results Labs Labs: Short CBC 03/03/25 Range/Units 17:14 WBC 10.1 H (4.5-10.0) K/mm3 Hgb 10.8 L (12.0-15.0) g/dL Hct 33.5 L (37.0-47.0) % Plt Count 273 (150-375) k/mm3 BMP 03/03/25 17:14 Sodium 144 Potassium 4.0 Chloride 117 H Carbon Dioxide 20 L BUN 36 H Creatinine 3.03 H Glucose 100 Calcium 9.2 Cardiac Enzymes 03/03/25 03/03/25 Range/Units 17:14 20:48 Troponin I 0.043 H* 0.040 H* (0.000-0.034) ng/mL Liver Function 03/03/25 Range/Units 17:14 Total Bilirubin 0.4 (0.2-1.3) mg/dL AST 26 (14-36) U/L ALT 25 (6-35) U/L Alkaline Phosphatase 62 (38-126) U/L Albumin 3.5 (3.5-5.1) g/dL Imaging Chest X-Ray 03/03/25 17:45 IMPRESSION: 1. Moderate pulmonary vascular congestion with bilateral pleural effusions, right greater than left. Venous Doppler Study 03/03/25 18:57 IMPRESSION: 1. No deep venous thrombosis. Assessment and Plan Assessment and plan (1) Acute on chronic diastolic congestive heart failure: Code(s): I50.33 - Acute on chronic diastolic (congestive) heart failure Status: Acute (2) Acute on chronic kidney failure: Code(s): N17.9 - Acute kidney failure, unspecified; N18.9 - Chronic kidney disease, unspecified Status: Acute (3) Elevated troponin: Code(s): R79.89 - Other specified abnormal findings of blood chemistry Status: Acute (4) Hypertensive urgency: Code(s): I16.0 - Hypertensive urgency Status: Acute (5) Insulin dependent type 2 diabetes mellitus: Code(s): E11.9 - Type 2 diabetes mellitus without complications; 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 Labs, imaging, EKG, and all reports were personally reviewed. Blood pressures were in the 200s systolic on arrival and they have been running high for at least the last week or so as d ocumented but she is really asymptomatic with this. With the loss of her unexpectedly 2 weeks ago, these may be elevated simply due to stress. Her kidney function is worsening however and she has had recent changes in her medications as detailed in HPI. For now we will continue with her current regimen of nebivolol 20 mg daily, irbesartan 300 mg daily, and hydralazine 50 mg 3 times daily. She is also on bumetanide 1 mg twice daily and despite this her swelling continues to worsen. For now we will continue with cautious IV diuresis with close monitoring of volume status, renal function, and electrolytes. Echocardiogram and renal ultrasound have been ordered. I will ask Dr. Horta and Dr. Cruz to see her in consultation for further recommendations. Elevated troponin is likely related to the poorly controlled blood pressures as she has not had any chest pain however we will continue to trend to peak. CPAP will be provided for the patient to use while hospitalized. Continue basal insulin. Initiate sliding scale insulin, Accu-Cheks, and hypoglycemic protocol. Her home medications will be reviewed and resumed as appropriate. Findings and treatment plan were discussed with the patient. Questions were solicited and answered to satisfaction. The patient's medical management will be taken over by the hospitalist team in a.m. Quality VTE Prophylaxis VTE prophylaxis: pharmacologic ordered
[2025-03-04] VITALS (45 sets, daily range): BP systolic 152–241; BP diastolic 37–66; PULSE 44–72; RESP 15–28; TEMP 36.4–36.9; O2SAT 75–100; BMI 44.8
--- NOTE | 2025-03-04 00:07 | ECG_ITS ---
Test Date: 2025-03-04 00:07:22 Measurements Intervals [place] Rate: 53 P: 13 NE: 164 QRS: 9 QRSD: 93 T: 47 QT: 431 QTc: 405 Interpretive Statements SINUS BRADYCARDIA DELAYED PRECORDIAL R/S TRANSITION NONSPECIFIC ST & T-WAVE ABNORMALITY- HIGH LATERAL LEADS BASELINE ARTIFACT- I, II, AVR, AVL BORDERLINE ECG Compared to ECG 03/03/2025 20:29:21 HEART RATE HAS INCREASED Possible ischemia no longer present Electronically Signed On 03-04-2025 07:05:59 CDT by Ru Horta D.O.
[2025-03-04 00:51] LABS: Troponin I 0.035 ng/mL (0.000-0.034)
[2025-03-04] MEDS: ACETAMINOPHEN 325 MG TABLET 650 MG PO (02:14)
[2025-03-04] MEDS: Please enter patient height and weight for medication dosing 1 EACH XX (04:17)
--- NOTE | 2025-03-04 05:05 | ADMGEN ---
This patient, Michaela Christian, was admitted to IMU Room 209-01. Patient/family oriented to hospital policies and general routines including ID bracelet, bed and alarms, visiting hours, pain management, procedures, bathroom and other care routines, personal items, smoking policy, room service/diet, and visiting hours. Information on how to activate the Rapid Response Team has been discussed. Patient/Family are encouraged to report perceived risks to care and to ask questions if they do not understand what they are told or what they should do.
--- NOTE | 2025-03-04 06:00 | ECHO_ITS ---
Patient Info Name: Michaela Christian Age: 69 years : 1955 Gender: Female Ht: 62 in Wt: 245 lbs BSA: 2.27 m2 HR: 56 bpm BP: 199 / 58 mmHg Technical Quality: Good Exam Date: 03/04/2025 1:13 PM Patient Status: I Admit Date: 03/04/2025 Exam Type: CA echo doppler color flow Complete two-dimensional, color flow and Doppler transthoracic echocardiogram is performed. Staff Referring Physician: Mary Ellen Rodriguez [facility] [place] Technician: Yulia Figueroa Attending Provider: Salo Boland Summary 1. Complete two-dimensional, color flow and Doppler transthoracic echocardiogram is performed. 2. Left ventricular chamber dimension is mildly enlarged. 3. Left ventricular systolic function is normal, estimated at 60-65. 4. There is moderate concentric increased left ventricular wall thickness. 5. The left ventricular diastolic function is abnormal. 6. E/e' 17 is elevated. 7. Left atrial chamber dimension is moderately enlarged. 8. There is mild aortic valve sclerosis. 9. There is mild to moderate mitral valve regurgitation. 10. There is mild tricuspid valve regurgitation. 11. Mild pulmonary hypertension, estimated pulmonary arterial systolic pressure is 43 mmHg. 12. There is trace pulmonic regurgitation. 13. Dilated inferior vena cava with >50% collapse upon inspiration consistent with elevated right atrial pressure, 10 mmHg. Left Ventricle E/e' 17 is elevated. Left ventricular chamber dimension is mildly enlarged. Left ventricular systolic function is normal, estimated at 60-65. There is moderate concentric increased left ventricular wall thickness. The left ventricular diastolic function is abnormal. Right Ventricle Right ventricular chamber dimension is normal. Right ventricular systolic function is normal and with normal TAPSE 2.2 cm. Left Atria Left atrial chamber dimension is moderately enlarged. Right Atria Right atrial chamber dimension is normal. Aortic Valve The aortic valve is trileaflet. There is mild aortic valve sclerosis. There is no aortic valve stenosis. There is no aortic valve regurgitation. Pulmonic Valve There is trace pulmonic regurgitation. Mitral Valve There is no mitral valve stenosis. There is mild to moderate mitral valve regurgitation. Tricuspid Valve There is mild tricuspid valve regurgitation. Mild pulmonary hypertension, estimated pulmonary arterial systolic pressure is 43 mmHg. Pericardium/Pleural There is no pericardial effusion. Inferior Vena Cava Dilated inferior vena cava with >50% collapse upon inspiration consistent with elevated right atrial pressure, 10 mmHg. Aorta The aortic root size at the sinus of Valsalva is normal. Left Ventricular Outflow Tract Name Value Normal LVOT 2D LVOT Diameter 2.0 cm LVOT Doppler LVOT Peak Velocity 123 cm/s LVOT Peak Gradient 6 mmHg LVOT Mean Gradient 3 mmHg LVOT VTI 32 cm LVOT Stroke Volume 100 ml LVOT CO 5.5 l/min LVOT CI 2.4 l/min/m2 Pulmonic Valve Name Value Normal RVOT Doppler RVOT Peak Velocity 99 cm/s RVOT Peak Gradient 4 mmHg PV Doppler PV Peak Velocity 121 cm/s PV Peak Gradient 6 mmHg Mitral Valve Name Value Normal MV Regurgitation Doppler MR Peak Gradient 227 mmHg MV Diastolic Function MV E Peak Velocity 92 cm/s MV A Peak Velocity 90 cm/s MV E/A 1.0 MV Decel Time (PW) 174 ms MV Annular TDI MV E/e' (Septal) 16.6 MV E/e' (Lateral) 19.3 MV E/e' (Average) 18.0 Tricuspid Valve Name Value Normal TV Regurgitation Doppler TR Peak Velocity 288 cm/s TR Peak Gradient 33 mmHg Estimated PAP/RSVP RA Pressure 10 mmHg <=5 PA Systolic Pressure 43 mmHg <36 RV Systolic Pressure 43 mmHg <36 Aortic Valve Name Value Normal AV Doppler AV Peak Velocity 169 cm/s AV Peak Gradient 11 mmHg AV Area (Cont Eq Lefty) 2.2 cm2 AV DI (Lefty) 0.73 AV Regurgitation 2D LVOT Area 3.1 cm2 Ventricles Name Value Normal LV Dimensions 2D/MM IVS Diastolic Thickness (2D) 1.2 cm 0.6-1.0 LVID Diastole (2D) 5.7 cm 3.8-5.2 LVIW Diastolic Thickness (2D) 1.4 cm 0.6-0.9 LVID Systole (2D) 3.8 cm 2.2-3.5 LVOT Diameter 2.0 cm LV Mass (2D Cubed) 322.20 g 67.00-162.00 LV Mass Index (2D Cubed) 142 g/m2 43-95 Relative Wall Thickness (2D) 0.49 <=0.42 LV Fractional Shortening/Ejection Fraction 2D/MM LV Fractional Shortening (2D) 33 % 27-45 LV EF (2D Teichholz) 61 % LV Diastolic Volume (4C MOD) 174 ml LV EF (4C MOD) 64 % LV Diastolic Volume (2C MOD) 170 ml LV EF (2C MOD) 61 % LV Diastolic Volume (BP MOD) 180 ml 46-106 LV Diastolic Volume Index (BP MOD) 79 ml/m2 29-61 LV Systolic Volume (BP MOD) 68 ml 14-42 LV Systolic Volume Index (BP MOD) 30 ml/m2 8-24 LV EF (BP MOD) 62 % 54-74 LV Diastolic Length (4C) 8.6 cm LV Systolic Length (4C) 7.1 cm LV Stroke Volume (4C MOD) 111 ml Atria Name Value Normal LA Dimensions LA Volume (4C A-L) 100 ml LA Volume (BP A-L) 90 ml RA Dimensions RA Systolic Major [place] Length (4C) 5.7 cm 2.2-2.8 RA Area (4C) 17.8 cm2 <=18.0 Report Signatures
[2025-03-04] MEDS: IRBESARTAN 150 MG TABLET 300 MG PO (06:36)
--- NOTE | 2025-03-04 06:45 | PC.NURSE ---
Mary Ellen KUMAR, notified of pts blood pressure, home medications restarted and hydralazine and irbesartan given an hour early per hospitalist.
--- NOTE | 2025-03-04 08:24 | P.CONCA_ITS ---
Assessment and Plan Assessment and plan (1) Hypertensive urgency: Code(s): I16.0 - Hypertensive urgency Status: Acute Assessment and Plan: High. She has been off Amlodipine for 2 months but edema was severe still, therefore, may not have been related to Amlodipine. Restart Amlodipine 10 mg daily. May need Clonidine also if still high later today, but monitor HR for bradycardia. (2) Diastolic dysfunction: Code(s): I51.89 - Other ill-defined heart diseases Status: Acute Assessment and Plan: She had not started Bumex as outpatient yet, but was being changed from Lasix to Bumex. She responded with diuresis with IV Lasix. Monitor renal function. Nephrology consulted. (3) Elevated troponin: Code(s): R79.89 - Other specified abnormal findings of blood chemistry Status: Acute Assessment and Plan: Slightly elevated at 0.043 and trending down. Due to diastolic heart failure and renal failure. Obtain echo. History of Present Illness History of Present Illness Consult date/time: 03/04/25 08:24 Reason For Visit: Acute CHF/Elevated Troponin/CKD/HTN Narrative: 69 yr old woman who is my regular cardiology patient and a patient of Dr. Herrera presents to ER for high BP. She has a history of diastolic dysfunction, DM, hypertension, dyslipidemia, JAMES (followed by PCP; stopped using CPAP as she was relocating often). She was seen by PCP with very high SBP>200 and was directed to ER. She has severe edema but after given IV Lasix last evening her swelling is mild-mod now. She can walk only 2 blocks and used to be able to walk 1/2-1 mile without any problems. Denies chest pain, sob, orthopnea, PND, dizziness, palpitations. Cardiovascular Procedures Echo/MUGA:: 02/24/24 Echo: EF 60-65%, diastolic dysfunction (E/e' 17), mild LAE, trace TR, RVSP 44 mmHg. 02/20/21 [facility] [place]: EF 70-75%, mod LVH, grade II diastolic dysfunction, mild LAE, mild-mod MR, RVSP 41 mmHg. Electrophysiology:: 01/30/23 EKG: Sinus rhythm, LVH, PRWP, consider inferior infarct, age indeterminate. 12/17/21 EKG:Sinus bradycardia at 47 bpm, delayed precordial R/S transition. Stress Tests:: 02/26/24 CTA chest: Multifocal pneumonia of left lung. No pulm embolism. 02/24/24 Venous duplex: No DVT of both legs. 01/08/22 Sleep study: Severe JAMES. 11/27/21 U/S renal: Possible left kidney masses. Review of Systems 2 Review of Systems: All systems reviewed & are unremarkable except as noted in HPI and below Constitutional: Constitutional: Reports as per HPI, Denies chills and Denies fever(s) Cardiovascular: Cardiovascular: Reports as per HPI, Denies chest pain and Denies irregular heart rhythm Respiratory: Respiratory: Reports as per HPI, Denies dyspnea and Reports dyspnea on exertion Gastrointestinal: Gastrointestinal: Reports as per HPI and Denies abdominal pain Genitourinary: Genitourinary: Reports as per HPI and Denies dysuria Musculoskeletal: Musculoskeletal: Reports as per HPI Neurologic: Reports as per HPI, Denies dizziness and Denies syncope [facility] Past Medical History Medical History Recurrent UTI Osteoarthritis of left knee Obstructive sleep apnea on CPAP Hyperlipidemia Insulin dependent type 2 diabetes mellitus Diastolic dysfunction Echo in February 2021 showed normal LV systolic function with an EF of 70 75% incident normal diastolic dysfunction grade 2. Closed intertrochanteric fracture of right hip (08/2022) Chronic kidney disease, stage 3b Hypertension Surgical History Surgical History History of hip surgery Right 08/2022 History of tubal ligation History of open reduction and internal fixation (ORIF) procedure Repair of right ankle fracture. History of cataract extraction (08/2015) History of open reduction and internal fixation (ORIF) procedure (09/05/22) Right hip trochanteric nail with hip screw. History of section (01/20/85) History of section (03/18/88) History of hysterectomy (08/1998) Family History Family History Father Diabetes mellitus Heart disease Acute myocardial infarction Mother , 04/28/2000 Breast cancer Alzheimer's dementia Grandparent Cerebrovascular accident maternal grandfather Acute myocardial infarction Social History Social History (Updated 03/04/25 @ 00:23 by Mary Ellen Rodriguez PA-C) Social History: Surrogate medical decision maker: Lynn Barrera and Abhi Christian, children. Code status: Full code. Smoking status: Never smoker Second hand tobacco smoke exposure: Yes Alcohol intake: never Alcohol use details: 1 glass of wine a month. Substance use: never Substance use type: does not use Do You Feel Safe in your Home?: Yes Lack of Transportation: No Lack of Food: Never True Current Housing: I Have Housing Concerned About Future Housing: No Difficulty Paying Gas/Electric Bills: No Difficulty Paying for Meds: No Currently Unemployed: No Education: High School Diploma/GED Difficulty w/ Childcare or Family Care: No Living arrangements: with family Additional living arrangements comments: as of February 2025. She 2 adult children, a son who is local and daughter who lives in [place]. Occupation/Education: retired Additional occupation/education comments: Retired from [employer] work. Spiritual care concerns: No Meds Home Medications and Allergies Home Medications ?Medication ?Instructions ?Recorded ?Confirmed ?Type ferrous sulfate 325 mg (65 mg 325 mg PO QAM 12/12/20 03/04/25 History iron) tablet ascorbic acid (vitamin C) 250 mg 250 mg PO QAM 01/30/23 03/04/25 History chewable tablet cholecalciferol (vitamin D3) 50 50 mcg PO QAM 02/17/23 03/04/25 History mcg (2,000 unit) capsule pen needle, diabetic 29 gauge x #400 ea 12/11/23 03/04/25 Rx 1/2 (BD Ultra-Fine Original Pen Needle) blood sugar diagnostic (OneTouch #50 ea 03/26/24 03/04/25 Rx Ultra Test strips) flash glucose scanning reader #1 ea 07/09/24 03/04/25 Rx (FreeStyle Caryn 2 [place]) pravastatin 10 mg tablet See Rx Instructions .Route 09/30/24 03/04/25 Rx .COMPLEX #90 tabs aspirin 81 mg tablet,delayed 81 mg PO DAILY 10/12/24 03/04/25 History release blood-glucose sensor (FreeStyle #2 ea 10/22/24 03/04/25 Rx Caryn 2 Plus Sensor device) insulin glargine 100 unit/mL (3 40 unit (0.4 mL) subcut QPM #15 mL 12/02/24 03/04/25 Rx mL) subcutaneous pen (Lantus Solostar U-100 Insulin) irbesartan 300 mg tablet 300 mg PO DAILY #90 tabs 12/02/24 03/04/25 Rx nitrofurantoin macrocrystal 50 mg 50 mg PO QHS #90 caps 12/02/24 03/04/25 Rx capsule nebivolol 20 mg tablet 20 mg PO DAILY #30 tabs 02/08/25 03/04/25 Rx sodium bicarbonate 650 mg tablet 650 mg PO BIDWMEAL #60 tabs 02/08/25 03/04/25 Rx bumetanide 1 mg tablet 1 mg PO BID #60 tabs 03/02/25 03/04/25 Rx hydralazine 50 mg tablet See Rx Instructions .Route 03/02/25 03/04/25 Rx .COMPLEX #90 tabs insulin aspart U-100 100 unit/mL 13 unit (0.13 mL) subcut TID #15 mL 03/02/25 03/04/25 Rx (3 mL) subcutaneous pen Allergies Allergy/AdvReac Type Severity Reaction Status Date / Time No Known Allergies Allergy Verified 03/03/25 11:05 Vital Signs Vital Signs - 24 hr 03/03/25 14:47 03/03/25 17:00 03/03/25 17:30 Temperature 97.7 F Pulse Rate 63 52 L 47 L Respiratory Rate 16 22 H 20 Blood Pressure 228/57 H 241/77 H 233/73 H Pulse Oximetry 94 99 97 Oxygen Delivery 03/03/25 18:23 03/03/25 18:30 03/03/25 18:30 Temperature Pulse Rate 60 50 L 54 L Respiratory Rate 18 20 29 H Blood Pressure 252/70 H Pulse Oximetry 97 98 98 Oxygen Delivery 03/03/25 18:31 03/03/25 18:45 03/03/25 19:00 Temperature Pulse Rate 50 L 49 L 50 L Respiratory Rate 25 H 26 H 18 Blood Pressure 252/70 H 237/62 H Pulse Oximetry 97 98 98 Oxygen Delivery 03/03/25 19:00 03/03/25 19:02 03/03/25 19:24 Temperature Pulse Rate 46 L 49 L 64 Respiratory Rate 17 15 20 Blood Pressure 237/62 H Pulse Oximetry 98 98 91 Oxygen Delivery 03/03/25 19:30 03/03/25 19:31 03/03/25 19:45 Temperature Pulse Rate 55 L 59 L 51 L Respiratory Rate 16 21 H 19 Blood Pressure 231/192 H Pulse Oximetry 98 96 97 Oxygen Delivery 03/03/25 19:50 03/03/25 19:51 03/03/25 20:00 Temperature Pulse Rate 49 L 51 L 55 L Respiratory Rate 20 26 H 18 Blood Pressure 242/73 H 242/73 H Pulse Oximetry 98 100 100 Oxygen Delivery 03/03/25 20:02 03/03/25 20:15 03/03/25 20:30 Temperature Pulse Rate 58 L 59 L 49 L Respiratory Rate 18 16 22 H Blood Pressure 204/99 H 218/91 H Pulse Oximetry 99 99 99 Oxygen Delivery 03/03/25 20:30 03/03/25 20:32 03/03/25 20:45 Temperature Pulse Rate 59 L 48 L 49 L Respiratory Rate 20 17 20 Blood Pressure 218/91 H Pulse Oximetry 100 99 100 Oxygen Delivery 03/03/25 21:00 03/03/25 21:00 03/03/25 21:02 Temperature Pulse Rate 56 L 57 L 56 L Respiratory Rate 19 24 H 17 Blood Pressure 199/62 H 199/62 H Pulse Oximetry 99 Oxygen Delivery 03/03/25 21:15 03/03/25 21:34 03/03/25 21:45 Temperature Pulse Rate 66 81 54 L Respiratory Rate 21 H 19 21 H Blood Pressure Pulse Oximetry 94 99 Oxygen Delivery 03/03/25 22:00 03/03/25 22:15 03/03/25 22:31 Temperature Pulse Rate 58 L 60 66 Respiratory Rate 23 H 29 H 12 Blood Pressure Pulse Oximetry 97 98 96 Oxygen Delivery 03/03/25 22:41 03/03/25 22:42 03/03/25 22:45 Temperature Pulse Rate 58 L 55 L 57 L Respiratory Rate 19 21 H 28 H Blood Pressure 174/44 H 174/44 H Pulse Oximetry 97 97 96 Oxygen Delivery 03/03/25 22:47 03/03/25 23:00 03/03/25 23:15 Temperature Pulse Rate 58 L 58 L 62 Respiratory Rate 29 H 27 H 22 H Blood Pressure 188/42 H Pulse Oximetry 97 98 97 Oxygen Delivery 03/03/25 23:30 03/03/25 23:32 03/03/25 23:45 Temperature Pulse Rate 61 61 62 Respiratory Rate 21 H 24 H 21 H Blood Pressure 193/58 H Pulse Oximetry 97 97 98 Oxygen Delivery 03/04/25 00:00 03/04/25 00:15 03/04/25 00:31 Temperature Pulse Rate 53 L 59 L 61 Respiratory Rate 28 H 28 H 19 Blood Pressure Pulse Oximetry 98 97 Oxygen Delivery 03/04/25 00:49 03/04/25 01:00 03/04/25 01:15 Temperature Pulse Rate 72 53 L 56 L Respiratory Rate 17 17 15 Blood Pressure Pulse Oximetry 89 L 96 96 Oxygen Delivery 03/04/25 01:30 03/04/25 01:45 03/04/25 02:00 Temperature Pulse Rate 59 L 59 L 70 Respiratory Rate 22 H 23 H 16 Blood Pressure Pulse Oximetry 95 92 Oxygen Delivery 03/04/25 02:14 03/04/25 02:15 03/04/25 02:16 Temperature Pulse Rate 61 59 L 62 Respiratory Rate 18 21 H 19 Blood Pressure 228/54 H 216/49 H Pulse Oximetry 98 Oxygen Delivery Room Air 03/04/25 02:17 03/04/25 02:30 03/04/25 02:45 Temperature Pulse Rate 61 58 L 55 L Respiratory Rate 23 H 21 H 23 H Blood Pressure 216/49 H Pulse Oximetry 98 97 Oxygen Delivery 03/04/25 03:00 03/04/25 03:01 03/04/25 03:02 Temperature Pulse Rate 60 61 55 L Respiratory Rate 21 H 24 H 22 H Blood Pressure 217/40 H 201/51 H Pulse Oximetry 94 75 L 100 Oxygen Delivery 03/04/25 03:03 03/04/25 03:17 03/04/25 03:30 Temperature Pulse Rate 51 L 65 59 L Respiratory Rate 19 16 25 H Blood Pressure Pulse Oximetry 98 98 Oxygen Delivery 03/04/25 03:45 03/04/25 03:47 03/04/25 03:48 Temperature Pulse Rate 51 L 54 L 50 L Respiratory Rate 23 H 27 H 17 Blood Pressure 204/53 H Pulse Oximetry 96 95 95 Oxygen Delivery 03/04/25 04:00 03/04/25 04:15 03/04/25 04:30 Temperature Pulse Rate 69 52 L 54 L Respiratory Rate 22 H 18 23 H Blood Pressure 186/37 H Pulse Oximetry 97 96 Oxygen Delivery 03/04/25 04:58 03/04/25 05:02 03/04/25 06:00 Temperature 98.4 F Pulse Rate 54 L 54 L 55 L Respiratory Rate 23 H 16 Blood Pressure 186/37 H 199/58 H Pulse Oximetry 96 98 Oxygen Delivery 03/04/25 06:04 03/04/25 07:51 Temperature 97.5 F L Pulse Rate 57 L Respiratory Rate 24 H Blood Pressure 225/48 H Pulse Oximetry 97 Oxygen Delivery Room Air Exam 2 Const: General: cooperative, healthy appearing and comfortable Resp: Auscultation: clear to auscultation bilaterally, no crackles, no rales, no rhonchi and no wheezes Cardio: Rate: bradycardic Rhythm: regular rhythm Heart sounds: no murmurs Peripheral pulses: dorsalis pedis present GI: GI Palp: No abdominal tenderness and Yes Soft to palpation Neuro: General: oriented to person, oriented to place and oriented to time Extrem: Right lower extremity: edema Left lower extremity: edema Other: Mild-mod edema of both legs Results Labs and Meds 03/03/25 17:14 03/03/25 17:14 Lab results: Cardiac Enzymes 03/03/25 03/03/25 03/04/25 Range/Units 17:14 20:48 00:19 AST 26 (14-36) U/L Troponin I 0.043 H* 0.040 H* 0.035 H* (0.000-0.034) ng/mL Coagulation 03/03/25 Range/Units 17:14 PT 12.8 (11.1-14.7) Seconds APTT 30.9 (22.3-36.8) Seconds CBC 03/03/25 Range/Units 17:14 WBC 10.1 H (4.5-10.0) K/mm3 RBC 3.28 L (4.2-5.4) M/mm3 Hgb 10.8 L (12.0-15.0) g/dL Hct 33.5 L (37.0-47.0) % Plt Count 273 (150-375) k/mm3 Lymph # (Auto) 2.79 (0.9-3.2) K/mm3 [place] # (Auto) 0.7 H (0.1-0.6) K/mm3 Eos # (Auto) 0.2 (0-0.3) K/mm3 Baso # (Auto) 0.1 (0.0-0.1) K/mm3 Comprehensive Metabolic Panel 03/03/25 Range/Units 17:14 Sodium 144 (137-145) mmol/L Potassium 4.0 (3.4-5.0) mmol/L Chloride 117 H (98-107) mmol/L Carbon Dioxide 20 L (22-30) mmol/L BUN 36 H (7-17) mg/dL Creatinine 3.03 H (0.7-1.0) mg/dL Glucose 100 (65-110) mg/dL Calcium 9.2 (8.4-10.2) mg/dL AST 26 (14-36) U/L ALT 25 (6-35) U/L Alkaline Phosphatase 62 (38-126) U/L Total Protein 6.6 (6.3-8.2) g/dL Albumin 3.5 (3.5-5.1) g/dL Intake and Output 03/03/25 03/04/25 03/04/25 23:59 07:59 15:59 Intake Total 600 Output Total 1 Balance 599 Intake: Oral 600 Output: Urine 1 Other: # Unmeasured Voids 2 Patient Weight 03/04/25 23:59 Weight 111.2 kg
[2025-03-04] MEDS: PRAVASTATIN SODIUM 10 MG TABLET BY MOUTH (09:38)
[2025-03-04] MEDS: NEBIVOLOL HCL 5 MG TABLET 20 MG PO (09:39)
[2025-03-04] MEDS: FERROUS SULFATE 325 MG TABLET DR BY MOUTH (09:41)
[2025-03-04] MEDS: SODIUM BICARBONATE TAB 650 MG TABLET PO ×2 (09:41→16:29)
[2025-03-04] MEDS: CHOLECALCIFEROL (VITAMIN D3) 25 MCG (1,000 UNITS) TABLET 50 MCG PO (09:41)
[2025-03-04] MEDS: ASPIRIN 81 MG ENTERIC TABLET PO (09:42)
[2025-03-04] MEDS: ASCORBIC ACID 250 MG TABLET PO (09:42)
[2025-03-04] MEDS: FUROSEMIDE INJ 40 MG/4 ML VIAL IV PUSH (09:43)
--- NOTE | 2025-03-04 09:54 | PM.CNNEP ---
Assessment and Plan Assessment and plan (1) Acute kidney injury superimposed on CKD: Code(s): N17.9 - Acute kidney failure, unspecified; N18.9 - Chronic kidney disease, unspecified Status: Acute Assessment and Plan: The patient has chronic kidney disease. This is due to diabetes and hypertension. Her creatinine had been running in the 1.5-2 range for years. Recently her creatinine has been above 2. She does have some blood in the urine and so I had offered a kidney biopsy for her. I had done this for couple of visits before this but on the last visit the patient said okay but it was not set up yet because of her 's passing away. The patient has acute on chronic kidney disease. This could be progression of her kidney disease. Or this could be because of the very high blood pressure. A recent echo was done and showed that her EF is still 60% but she does have diastolic dysfunction and also pulmonary hypertension. This speaks against cardio renal issues. The patient has no symptoms of uremia. We do not need to do dialysis at this point. At this point will continue diuretics treat the volume overload. Will follow the kidney function as we do. I will check some labs to see if there is any other issues that might make the kidney function worse. (2) Hypertensive urgency: Code(s): I16.0 - Hypertensive urgency Status: Acute Assessment and Plan: The patient's blood pressure was very high on admission. She was not taking her blood pressure at home so it is not clear how long this had been going on. Meds were adjusted since admission. She is currently on amlodipine 10, hydralazine 50 t.i.d., irbesartan 300, and nebivolol 20. The blood pressure is still high. The pulse is only 50, so we can not increase nebivolol or add clonidine. The patient just got a dose of amlodipine this morning. Will see how it is later today.. Diuresis should also help the blood pressure. (3) Acute on chronic diastolic congestive heart failure: Code(s): I50.33 - Acute on chronic diastolic (congestive) heart failure Status: Acute Assessment and Plan: EF was still good last check. Patient also has diastolic dysfunction and pulmonary hypertension. Patient probably has some sodium retention due to her renal function as well Will increase the furosemide to 80 b.i.d.. Consider adding metolazone if still no response by tomorrow (4) Obstructive sleep apnea on CPAP: Code(s): G47.33 - Obstructive sleep apnea (adult) (pediatric); Z99.89 - Dependence on other enabling machines and devices Status: Acute Assessment and Plan: The patient uses a CPAP machine (5) Type 2 diabetes mellitus: Qualifiers: Diabetes mellitus halfway insulin use: with salvage determiner use Diabetes mellitus complication status: without complication Qualified Code(s): E11.9 - Type 2 diabetes mellitus without complications; Z79.4 - retirement (current) use of insulin Code(s): E11.9 - Type 2 diabetes mellitus without complications Status: Acute Assessment and Plan: Patient is on insulin sliding scale per hospitalists. History of Present Illness Reason for Consult Consult date: 03/04/25 Chief Complaint Chief complaint: Acute CHF/Elevated Troponin/CKD/HTN History of Present Illness Narrative: Tolu is a very pleasant 69-year-old lady who has multiple medical problems including chronic kidney disease stage IV, osteoarthritis, sleep apnea on a CPAP machine, hypertension, diabetes, diastolic dysfunction grade 2, hyperlipidemia, and recurrent UTI. The patient's unexpectedly about 2 weeks ago. Since then she has not been feeling well. Diet has been off. She has been more short of breath and a little more swollen as well. She says she has been taking her medications however. She went to see her primary care doctor and her blood pressure was very high so she was sent to the ER. Her blood pressure has been difficult to control. Recently her amlodipine was stopped because of rising proteinuria and her nebivolol was increased. She is already on irbesartan and hydralazine. In the ER her blood pressure was over 200. The patient was admitted, given antihypertensives. Chest x-ray was wet and she was swollen so she was given a little bit of Lasix as well. Her GFR is lower, at 15 now. So renal consultation was requested. The patient has not had any kidney issues. No bloody foamy cloudy or smelly urine. No bladder infections. Review of Systems Constitutional: Constitutional: Reports no additional constitutional complaints Eyes: Eyes: Reports no additional eye complaints ENT: Reports system reviewed and no additional complaints, except as documented Cardiovascular: Cardiovascular: Reports no additional cardiovascular complaints Respiratory: Respiratory: Reports no additional respiratory complaints Gastrointestinal: Gastrointestinal: Reports no additional gastrointestinal complaints Genitourinary: Genitourinary: Reports no additional female genitourinary complaints Musculoskeletal: Musculoskeletal: Reports no additional musculoskeletal complaints Integumentary/Breasts: Skin/Breast: Reports system reviewed and no additional complaints, except as docu Neurologic: Reports system reviewed and no additional complaints, except as documented Psychiatric: Psychiatric: Reports no additional psychiatric complaints Endocrine: Endocrine: Reports no additional endocrine complaints [facility] Past Medical History Medical History Recurrent UTI Osteoarthritis of left knee Obstructive sleep apnea on CPAP Hyperlipidemia Insulin dependent type 2 diabetes mellitus Diastolic dysfunction Echo in February 2021 showed normal LV systolic function with an EF of 70 75% incident normal diastolic dysfunction grade 2. Closed intertrochanteric fracture of right hip (08/2022) Chronic kidney disease, stage 3b Hypertension Surgical History Surgical History History of hip surgery Right 08/2022 History of tubal ligation History of open reduction and internal fixation (ORIF) procedure Repair of right ankle fracture. History of cataract extraction (08/2015) History of open reduction and internal fixation (ORIF) procedure (09/05/22) Right hip trochanteric nail with hip screw. History of section (01/20/85) History of section (03/18/88) History of hysterectomy (08/1998) Family History Family History Father Diabetes mellitus Heart disease Acute myocardial infarction Mother , 04/28/2000 Breast cancer Alzheimer's dementia Grandparent Cerebrovascular accident maternal grandfather Acute myocardial infarction Social History Social History Social History: Surrogate medical decision maker: Lynn Barrera and Abhi Christian, children. Code status: Full code. Smoking status: Never smoker Second hand tobacco smoke exposure: Yes Alcohol intake: never Alcohol use details: 1 glass of wine a month. Substance use: never Substance use type: does not use Do You Feel Safe in your Home?: Yes Lack of Transportation: No Lack of Food: Never True Current Housing: I Have Housing Concerned About Future Housing: No Difficulty Paying Gas/Electric Bills: No Difficulty Paying for Meds: No Currently Unemployed: No Education: High School Diploma/GED Difficulty w/ Childcare or Family Care: No Living arrangements: with family Additional living arrangements comments: as of February 2025. She 2 adult children, a son who is local and daughter who lives in [place]. Occupation/Education: retired Additional occupation/education comments: Retired from [employer] work. Spiritual care concerns: No Meds Home Medications and Allergies Home Medications ?Medication ?Instructions ?Recorded ?Confirmed ?Type ferrous sulfate 325 mg (65 mg 325 mg PO QAM 12/12/20 03/04/25 History iron) tablet ascorbic acid (vitamin C) 250 mg 250 mg PO QAM 01/30/23 03/04/25 History chewable tablet cholecalciferol (vitamin D3) 50 50 mcg PO QAM 02/17/23 03/04/25 History mcg (2,000 unit) capsule pen needle, diabetic 29 gauge x #400 ea 12/11/23 03/04/25 Rx 1/2 (BD Ultra-Fine Original Pen Needle) blood sugar diagnostic (OneTouch #50 ea 03/26/24 03/04/25 Rx Ultra Test strips) flash glucose scanning reader #1 ea 07/09/24 03/04/25 Rx (FreeStyle Caryn 2 [place]) pravastatin 10 mg tablet See Rx Instructions .Route 09/30/24 03/04/25 Rx .COMPLEX #90 tabs aspirin 81 mg tablet,delayed 81 mg PO DAILY 10/12/24 03/04/25 History release blood-glucose sensor (FreeStyle #2 ea 10/22/24 03/04/25 Rx Caryn 2 Plus Sensor device) insulin glargine 100 unit/mL (3 40 unit (0.4 mL) subcut QPM #15 mL 12/02/24 03/04/25 Rx mL) subcutaneous pen (Lantus Solostar U-100 Insulin) irbesartan 300 mg tablet 300 mg PO DAILY #90 tabs 12/02/24 03/04/25 Rx nitrofurantoin macrocrystal 50 mg 50 mg PO QHS #90 caps 12/02/24 03/04/25 Rx capsule nebivolol 20 mg tablet 20 mg PO DAILY #30 tabs 02/08/25 03/04/25 Rx sodium bicarbonate 650 mg tablet 650 mg PO BIDWMEAL #60 tabs 02/08/25 03/04/25 Rx bumetanide 1 mg tablet 1 mg PO BID #60 tabs 03/02/25 03/04/25 Rx hydralazine 50 mg tablet See Rx Instructions .Route 03/02/25 03/04/25 Rx .COMPLEX #90 tabs insulin aspart U-100 100 unit/mL 13 unit (0.13 mL) subcut TID #15 mL 03/02/25 03/04/25 Rx (3 mL) subcutaneous pen Allergies Allergy/AdvReac Type Severity Reaction Status Date / Time No Known Allergies Allergy Verified 03/03/25 11:05 Vital Signs Vital Signs - 24 hr 03/03/25 14:47 03/03/25 17:00 03/03/25 17:30 Temperature 97.7 F Pulse Rate 63 52 L 47 L Respiratory Rate 16 22 H 20 Blood Pressure 228/57 H 241/77 H 233/73 H Pulse Oximetry 94 99 97 Oxygen Delivery 03/03/25 18:23 03/03/25 18:30 03/03/25 18:30 Temperature Pulse Rate 60 50 L 54 L Respiratory Rate 18 20 29 H Blood Pressure 252/70 H Pulse Oximetry 97 98 98 Oxygen Delivery 03/03/25 18:31 03/03/25 18:45 03/03/25 19:00 Temperature Pulse Rate 50 L 49 L 50 L Respiratory Rate 25 H 26 H 18 Blood Pressure 252/70 H 237/62 H Pulse Oximetry 97 98 98 Oxygen Delivery 03/03/25 19:00 03/03/25 19:02 03/03/25 19:24 Temperature Pulse Rate 46 L 49 L 64 Respiratory Rate 17 15 20 Blood Pressure 237/62 H Pulse Oximetry 98 98 91 Oxygen Delivery 03/03/25 19:30 03/03/25 19:31 03/03/25 19:45 Temperature Pulse Rate 55 L 59 L 51 L Respiratory Rate 16 21 H 19 Blood Pressure 231/192 H Pulse Oximetry 98 96 97 Oxygen Delivery 03/03/25 19:50 03/03/25 19:51 03/03/25 20:00 Temperature Pulse Rate 49 L 51 L 55 L Respiratory Rate 20 26 H 18 Blood Pressure 242/73 H 242/73 H Pulse Oximetry 98 100 100 Oxygen Delivery 03/03/25 20:02 03/03/25 20:15 03/03/25 20:30 Temperature Pulse Rate 58 L 59 L 49 L Respiratory Rate 18 16 22 H Blood Pressure 204/99 H 218/91 H Pulse Oximetry 99 99 99 Oxygen Delivery 03/03/25 20:30 03/03/25 20:32 03/03/25 20:45 Temperature Pulse Rate 59 L 48 L 49 L Respiratory Rate 20 17 20 Blood Pressure 218/91 H Pulse Oximetry 100 99 100 Oxygen Delivery 03/03/25 21:00 03/03/25 21:00 03/03/25 21:02 Temperature Pulse Rate 56 L 57 L 56 L Respiratory Rate 19 24 H 17 Blood Pressure 199/62 H 199/62 H Pulse Oximetry 99 Oxygen Delivery 03/03/25 21:15 03/03/25 21:34 03/03/25 21:45 Temperature Pulse Rate 66 81 54 L Respiratory Rate 21 H 19 21 H Blood Pressure Pulse Oximetry 94 99 Oxygen Delivery 03/03/25 22:00 03/03/25 22:15 03/03/25 22:31 Temperature Pulse Rate 58 L 60 66 Respiratory Rate 23 H 29 H 12 Blood Pressure Pulse Oximetry 97 98 96 Oxygen Delivery 03/03/25 22:41 03/03/25 22:42 03/03/25 22:45 Temperature Pulse Rate 58 L 55 L 57 L Respiratory Rate 19 21 H 28 H Blood Pressure 174/44 H 174/44 H Pulse Oximetry 97 97 96 Oxygen Delivery 03/03/25 22:47 03/03/25 23:00 03/03/25 23:15 Temperature Pulse Rate 58 L 58 L 62 Respiratory Rate 29 H 27 H 22 H Blood Pressure 188/42 H Pulse Oximetry 97 98 97 Oxygen Delivery 03/03/25 23:30 03/03/25 23:32 03/03/25 23:45 Temperature Pulse Rate 61 61 62 Respiratory Rate 21 H 24 H 21 H Blood Pressure 193/58 H Pulse Oximetry 97 97 98 Oxygen Delivery 03/04/25 00:00 03/04/25 00:15 03/04/25 00:31 Temperature Pulse Rate 53 L 59 L 61 Respiratory Rate 28 H 28 H 19 Blood Pressure Pulse Oximetry 98 97 Oxygen Delivery 03/04/25 00:49 03/04/25 01:00 03/04/25 01:15 Temperature Pulse Rate 72 53 L 56 L Respiratory Rate 17 17 15 Blood Pressure Pulse Oximetry 89 L 96 96 Oxygen Delivery 03/04/25 01:30 03/04/25 01:45 03/04/25 02:00 Temperature Pulse Rate 59 L 59 L 70 Respiratory Rate 22 H 23 H 16 Blood Pressure Pulse Oximetry 95 92 Oxygen Delivery 03/04/25 02:14 03/04/25 02:15 03/04/25 02:16 Temperature Pulse Rate 61 59 L 62 Respiratory Rate 18 21 H 19 Blood Pressure 228/54 H 216/49 H Pulse Oximetry 98 Oxygen Delivery Room Air 03/04/25 02:17 03/04/25 02:30 03/04/25 02:45 Temperature Pulse Rate 61 58 L 55 L Respiratory Rate 23 H 21 H 23 H Blood Pressure 216/49 H Pulse Oximetry 98 97 Oxygen Delivery 03/04/25 03:00 03/04/25 03:01 03/04/25 03:02 Temperature Pulse Rate 60 61 55 L Respiratory Rate 21 H 24 H 22 H Blood Pressure 217/40 H 201/51 H Pulse Oximetry 94 75 L 100 Oxygen Delivery 03/04/25 03:03 03/04/25 03:17 03/04/25 03:30 Temperature Pulse Rate 51 L 65 59 L Respiratory Rate 19 16 25 H Blood Pressure Pulse Oximetry 98 98 Oxygen Delivery 03/04/25 03:45 03/04/25 03:47 03/04/25 03:48 Temperature Pulse Rate 51 L 54 L 50 L Respiratory Rate 23 H 27 H 17 Blood Pressure 204/53 H Pulse Oximetry 96 95 95 Oxygen Delivery 03/04/25 04:00 03/04/25 04:15 03/04/25 04:30 Temperature Pulse Rate 69 52 L 54 L Respiratory Rate 22 H 18 23 H Blood Pressure 186/37 H Pulse Oximetry 97 96 Oxygen Delivery 03/04/25 04:58 03/04/25 05:02 03/04/25 06:00 Temperature 98.4 F Pulse Rate 54 L 54 L 55 L Respiratory Rate 23 H 16 Blood Pressure 186/37 H 199/58 H Pulse Oximetry 96 98 Oxygen Delivery 03/04/25 06:04 03/04/25 07:51 03/04/25 09:39 Temperature 97.5 F L Pulse Rate 57 L 50 L Respiratory Rate 24 H Blood Pressure 225/48 H Pulse Oximetry 97 Oxygen Delivery Room Air Exam Narrative: Exam Narrative: Well developed well-nourished female in no acute distress Skin is warm and dry without rash Head normocephalic atraumatic Eyes normal sclerae and conjunctivae Mouth normal lips teeth and gums Neck no nodes no thyromegaly no carotid bruits Axillae no nodes Back no CVA tenderness Lungs symmetric and clear to auscultation and percussion Heart regular rate and rhythm without rub or gallop Abdomen bowel sounds positive soft nontender, no HSM, masses, or bruits. Extremities no cyanosis, clubbing, but 1+ bilateral edema. Slightly worse on the right Pulses 2+ equal in radial arteries Psychological not anxious or depressed Neuro alert and oriented x3 motor 5/5 cranial nerves 2-12 intact reflexes 2+ and equal in the biceps and patellar tendons cerebellar normal rapid alternating movements Results Lab Results 03/03/25 17:14 03/03/25 17:14 Lab results: Most recent lab results Calcium 9.2 mg/dL (8.4-10.2) 03/03/25 17:14
--- NOTE | 2025-03-04 10:11 | P.CONNP_ITS ---
History of Present Illness Reason for Consult Consult date: 03/04/25 Chief Complaint Chief complaint: Acute CHF/Elevated Troponin/CKD/HTN History of Present Illness Narrative: See other note for documentation. [facility] Past Medical History Medical History Recurrent UTI Osteoarthritis of left knee Obstructive sleep apnea on CPAP Hyperlipidemia Insulin dependent type 2 diabetes mellitus Diastolic dysfunction Echo in February 2021 showed normal LV systolic function with an EF of 70 75% incident normal diastolic dysfunction grade 2. Closed intertrochanteric fracture of right hip (08/2022) Chronic kidney disease, stage 3b Hypertension Surgical History Surgical History History of hip surgery Right 08/2022 History of tubal ligation History of open reduction and internal fixation (ORIF) procedure Repair of right ankle fracture. History of cataract extraction (08/2015) History of open reduction and internal fixation (ORIF) procedure (09/05/22) Right hip trochanteric nail with hip screw. History of section (01/20/85) History of section (03/18/88) History of hysterectomy (08/1998) Family History Family History Father Diabetes mellitus Heart disease Acute myocardial infarction Mother , 04/28/2000 Breast cancer Alzheimer's dementia Grandparent Cerebrovascular accident maternal grandfather Acute myocardial infarction Social History Social History Social History: Surrogate medical decision maker: Lynn Barrera and Abhi Christian, children. Code status: Full code. Smoking status: Never smoker Second hand tobacco smoke exposure: Yes Alcohol intake: never Alcohol use details: 1 glass of wine a month. Substance use: never Substance use type: does not use Do You Feel Safe in your Home?: Yes Lack of Transportation: No Lack of Food: Never True Current Housing: I Have Housing Concerned About Future Housing: No Difficulty Paying Gas/Electric Bills: No Difficulty Paying for Meds: No Currently Unemployed: No Education: High School Diploma/GED Difficulty w/ Childcare or Family Care: No Living arrangements: with family Additional living arrangements comments: as of February 2025. She 2 adult children, a son who is local and daughter who lives in [place]. 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 Spiritual care concerns: No Meds Home Medications and Allergies Home Medications ?Medication ?Instructions ?Recorded ?Confirmed ?Type ferrous sulfate 325 mg (65 mg 325 mg PO QAM 12/12/20 03/04/25 History iron) tablet ascorbic acid (vitamin C) 250 mg 250 mg PO QAM 01/30/23 03/04/25 History chewable tablet cholecalciferol (vitamin D3) 50 50 mcg PO QAM 02/17/23 03/04/25 History mcg (2,000 unit) capsule pen needle, diabetic 29 gauge x #400 ea 12/11/23 03/04/25 Rx 1/2 (BD Ultra-Fine Original Pen Needle) blood sugar diagnostic (OneTouch #50 ea 03/26/24 03/04/25 Rx Ultra Test strips) flash glucose scanning reader #1 ea 07/09/24 03/04/25 Rx (FreeStyle Caryn 2 [place]) pravastatin 10 mg tablet See Rx Instructions .Route 09/30/24 03/04/25 Rx .COMPLEX #90 tabs aspirin 81 mg tablet,delayed 81 mg PO DAILY 10/12/24 03/04/25 History release blood-glucose sensor (TALON THERAPEUTICSStyle #2 ea 10/22/24 03/04/25 Rx Caryn 2 Plus Sensor device) insulin glargine 100 unit/mL (3 40 unit (0.4 mL) subcut QPM #15 mL 12/02/24 03/04/25 Rx mL) subcutaneous pen (Lantus Solostar U-100 Insulin) irbesartan 300 mg tablet 300 mg PO DAILY #90 tabs 12/02/24 03/04/25 Rx nitrofurantoin macrocrystal 50 mg 50 mg PO QHS #90 caps 12/02/24 03/04/25 Rx capsule nebivolol 20 mg tablet 20 mg PO DAILY #30 tabs 02/08/25 03/04/25 Rx sodium bicarbonate 650 mg tablet 650 mg PO BIDWMEAL #60 tabs 02/08/25 03/04/25 Rx bumetanide 1 mg tablet 1 mg PO BID #60 tabs 03/02/25 03/04/25 Rx hydralazine 50 mg tablet See Rx Instructions .Route 03/02/25 03/04/25 Rx .COMPLEX #90 tabs insulin aspart U-100 100 unit/mL 13 unit (0.13 mL) subcut TID #15 mL 03/02/25 03/04/25 Rx (3 mL) subcutaneous pen Allergies Allergy/AdvReac Type Severity Reaction Status Date / Time No Known Allergies Allergy Verified 03/03/25 11:05 Vital Signs Vital Signs - 24 hr 03/03/25 14:47 03/03/25 17:00 03/03/25 17:30 Temperature 97.7 F Pulse Rate 63 52 L 47 L Respiratory Rate 16 22 H 20 Blood Pressure 228/57 H 241/77 H 233/73 H Pulse Oximetry 94 99 97 Oxygen Delivery 03/03/25 18:23 03/03/25 18:30 03/03/25 18:30 Temperature Pulse Rate 60 50 L 54 L Respiratory Rate 18 20 29 H Blood Pressure 252/70 H Pulse Oximetry 97 98 98 Oxygen Delivery 03/03/25 18:31 03/03/25 18:45 03/03/25 19:00 Temperature Pulse Rate 50 L 49 L 50 L Respiratory Rate 25 H 26 H 18 Blood Pressure 252/70 H 237/62 H Pulse Oximetry 97 98 98 Oxygen Delivery 03/03/25 19:00 03/03/25 19:02 03/03/25 19:24 Temperature Pulse Rate 46 L 49 L 64 Respiratory Rate 17 15 20 Blood Pressure 237/62 H Pulse Oximetry 98 98 91 Oxygen Delivery 03/03/25 19:30 03/03/25 19:31 03/03/25 19:45 Temperature Pulse Rate 55 L 59 L 51 L Respiratory Rate 16 21 H 19 Blood Pressure 231/192 H Pulse Oximetry 98 96 97 Oxygen Delivery 03/03/25 19:50 03/03/25 19:51 03/03/25 20:00 Temperature Pulse Rate 49 L 51 L 55 L Respiratory Rate 20 26 H 18 Blood Pressure 242/73 H 242/73 H Pulse Oximetry 98 100 100 Oxygen Delivery 03/03/25 20:02 03/03/25 20:15 03/03/25 20:30 Temperature Pulse Rate 58 L 59 L 49 L Respiratory Rate 18 16 22 H Blood Pressure 204/99 H 218/91 H Pulse Oximetry 99 99 99 Oxygen Delivery 03/03/25 20:30 03/03/25 20:32 03/03/25 20:45 Temperature Pulse Rate 59 L 48 L 49 L Respiratory Rate 20 17 20 Blood Pressure 218/91 H Pulse Oximetry 100 99 100 Oxygen Delivery 03/03/25 21:00 03/03/25 21:00 03/03/25 21:02 Temperature Pulse Rate 56 L 57 L 56 L Respiratory Rate 19 24 H 17 Blood Pressure 199/62 H 199/62 H Pulse Oximetry 99 Oxygen Delivery 03/03/25 21:15 03/03/25 21:34 03/03/25 21:45 Temperature Pulse Rate 66 81 54 L Respiratory Rate 21 H 19 21 H Blood Pressure Pulse Oximetry 94 99 Oxygen Delivery 03/03/25 22:00 03/03/25 22:15 03/03/25 22:31 Temperature Pulse Rate 58 L 60 66 Respiratory Rate 23 H 29 H 12 Blood Pressure Pulse Oximetry 97 98 96 Oxygen Delivery 03/03/25 22:41 03/03/25 22:42 03/03/25 22:45 Temperature Pulse Rate 58 L 55 L 57 L Respiratory Rate 19 21 H 28 H Blood Pressure 174/44 H 174/44 H Pulse Oximetry 97 97 96 Oxygen Delivery 03/03/25 22:47 03/03/25 23:00 03/03/25 23:15 Temperature Pulse Rate 58 L 58 L 62 Respiratory Rate 29 H 27 H 22 H Blood Pressure 188/42 H Pulse Oximetry 97 98 97 Oxygen Delivery 03/03/25 23:30 03/03/25 23:32 03/03/25 23:45 Temperature Pulse Rate 61 61 62 Respiratory Rate 21 H 24 H 21 H Blood Pressure 193/58 H Pulse Oximetry 97 97 98 Oxygen Delivery 03/04/25 00:00 03/04/25 00:15 03/04/25 00:31 Temperature Pulse Rate 53 L 59 L 61 Respiratory Rate 28 H 28 H 19 Blood Pressure Pulse Oximetry 98 97 Oxygen Delivery 03/04/25 00:49 03/04/25 01:00 03/04/25 01:15 Temperature Pulse Rate 72 53 L 56 L Respiratory Rate 17 17 15 Blood Pressure Pulse Oximetry 89 L 96 96 Oxygen Delivery 03/04/25 01:30 03/04/25 01:45 03/04/25 02:00 Temperature Pulse Rate 59 L 59 L 70 Respiratory Rate 22 H 23 H 16 Blood Pressure Pulse Oximetry 95 92 Oxygen Delivery 03/04/25 02:14 03/04/25 02:15 03/04/25 02:16 Temperature Pulse Rate 61 59 L 62 Respiratory Rate 18 21 H 19 Blood Pressure 228/54 H 216/49 H Pulse Oximetry 98 Oxygen Delivery Room Air 03/04/25 02:17 03/04/25 02:30 03/04/25 02:45 Temperature Pulse Rate 61 58 L 55 L Respiratory Rate 23 H 21 H 23 H Blood Pressure 216/49 H Pulse Oximetry 98 97 Oxygen Delivery 03/04/25 03:00 03/04/25 03:01 03/04/25 03:02 Temperature Pulse Rate 60 61 55 L Respiratory Rate 21 H 24 H 22 H Blood Pressure 217/40 H 201/51 H Pulse Oximetry 94 75 L 100 Oxygen Delivery 03/04/25 03:03 03/04/25 03:17 03/04/25 03:30 Temperature Pulse Rate 51 L 65 59 L Respiratory Rate 19 16 25 H Blood Pressure Pulse Oximetry 98 98 Oxygen Delivery 03/04/25 03:45 03/04/25 03:47 03/04/25 03:48 Temperature Pulse Rate 51 L 54 L 50 L Respiratory Rate 23 H 27 H 17 Blood Pressure 204/53 H Pulse Oximetry 96 95 95 Oxygen Delivery 03/04/25 04:00 03/04/25 04:15 03/04/25 04:30 Temperature Pulse Rate 69 52 L 54 L Respiratory Rate 22 H 18 23 H Blood Pressure 186/37 H Pulse Oximetry 97 96 Oxygen Delivery 03/04/25 04:58 03/04/25 05:02 03/04/25 06:00 Temperature 98.4 F Pulse Rate 54 L 54 L 55 L Respiratory Rate 23 H 16 Blood Pressure 186/37 H 199/58 H Pulse Oximetry 96 98 Oxygen Delivery 03/04/25 06:04 03/04/25 07:51 03/04/25 09:39 Temperature 97.5 F L Pulse Rate 57 L 50 L Respiratory Rate 24 H Blood Pressure 225/48 H Pulse Oximetry 97 Oxygen Delivery Room Air Results Lab Results 03/03/25 17:14 03/03/25 17:14 Lab results: Most recent lab results Calcium 9.2 mg/dL (8.4-10.2) 03/03/25 17:14
--- NOTE | 2025-03-04 10:38 | ADMGEN ---
This patient, Michaela Christian, was admitted to IMU Room 209-01 on 03/04/25 at 0505. Patient/family oriented to hospital policies and general routines including ID bracelet, bed and alarms, visiting hours, pain management, procedures, bathroom and other care routines, personal items, smoking policy, room service/diet, and visiting hours. Information on how to activate the Rapid Response Team has been discussed. Patient/Family are encouraged to report perceived risks to care and to ask questions if they do not understand what they are told or what they should do.
[2025-03-04 10:44] LABS: Anion Gap 8 mmol/L (4-12); Blood Urea Nitrogen 13 mg/dL (7-17); Calcium 9.6 mg/dL (8.4-10.2); Carbon Dioxide 26 mmol/L (22-30); Chloride 104 mmol/L (98-107); Estimated CRCL calculation 69 ml/min; Estimated Glomerular Filt Rate > 60; Glucose 92 mg/dL (65-110); Magnesium 2.0 mg/dL (1.6-2.3); Potassium 4.6 mmol/L (3.4-5.0); Sodium 138 mmol/L (137-145)
[2025-03-04 10:45] LABS: Thyroid Stimulating Hormone Reflex 1.900 uIU/mL (0.465-4.68)
--- NOTE | 2025-03-04 11:03 | PM.IMPN ---
Progress Note: A&P Assessment and Plan (1) Acute on chronic diastolic congestive heart failure: Code(s): I50.33 - Acute on chronic diastolic (congestive) heart failure Status: Acute (2) Acute on chronic kidney failure: Code(s): N17.9 - Acute kidney failure, unspecified; N18.9 - Chronic kidney disease, unspecified Status: Acute (3) Elevated troponin: Code(s): R79.89 - Other specified abnormal findings of blood chemistry Status: Acute (4) Hypertensive urgency: Code(s): I16.0 - Hypertensive urgency Status: Acute (5) Insulin dependent type 2 diabetes mellitus: Code(s): E11.9 - Type 2 diabetes mellitus without complications; 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.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 Cruz recently and had some medication changes due to uncontrolled blood pressures and worsening renal function (amlodipine discontinued, nebivolol increased, max dose irbesartan, and hydralazine t.i.d.). Today she had a follow-up appointment with her primary care provider and was referred to the emergency department for evaluation due to continued high blood pressures (systolics over 200) and increasing creatinine. She does not really have any complaints aside from those as listed above. With further questioning she admits that her appetite has been poor the last couple of after the unexpected of her from an [place]. She denies fever, cold and flu symptoms, chest pain, orthopnea, calf pain, cough, nausea, vomiting, diarrhea, and dysuria. In the ED: Blood pressure was 228/57 on arrival. The remainder of her vital signs were stable. Labs were significant for a WBC count of 10.1, hemoglobin 10.8, MCV 102.1, chloride 117, carbon dioxide 20, anion gap 7, BUN 36, creatinine 3.03, troponin 0.043, proBNP 6880, albumin 3.5. EKG showed sinus bradycardia with nonspecific ST and T-wave abnormalities in the high lateral leads and delayed precordial R/S transition. Lower extremity venous Doppler ultrasounds were negative for DVT. Chest x-ray showed moderate pulmonary vascular congestion with bilateral pleural effusions, right greater than left. She received furosemide 40 mg IV, hydralazine 10 mg IV, and 1 in nitroglycerin paste. She is being admitted in this setting for further treatment of poorly controlled hypertension, volume overload, and worsening kidney function accelerated hypertension currently on amlodipine 10 mg every below 20 mg irbesartan 300 mg hydralazine 50 3 times a day. And Lasix 80 b.i.d. Primarily systolic hypertension. iv hydralazine prn recent stresor with loss of ryanne on ckd stage neprology on board. Creatinine to 3. Creatinine down to 0.7 today.? Baseline creatinine around mid 1s to low 2s the past. Urine protein elevated more than 18 chf acute on chronic diastolic. iv diuresis as tolerated BNP elevated at 6880. Venous duplex negative for DVT. Chest x-ray with moderate pulmonary vascular congestion with bilateral pleural effusion right greater than left. Echo 02/2024 with EF 60-65% mild pulmonary hypertension mild MR mild TR abnormal diastolic function repeat echo ordered elevated troponin Mild flat JAMES on cpap non compliant with cpap. type 2 dm: basal insulin, ssi. GERD Anxiety depression DVT prophylaxis heparin subQ Subjective Date/time seen: 03/04/25 11:03 Interval history: Chart reviewed. Breathing is better. Leg swelling is improved. Denies any pain. Review of Systems Review of Systems: All systems reviewed & are unremarkable except as noted in HPI and below Exam Narrative: General: Nontoxic-appearing female sitting up in bed in no acute distress. HEENT: PERRL, EOMI. Sclera anicteric. Moist mucous membranes. Oropharynx is clear. Neck: Supple. No obvious JVD. Respiratory: Respirations are nonlabored and she is speaking in full sentences. Lung sounds are a bit diminished at the bases with faint crackles on the right. Cardiovascular: Regular rate and rhythm with S1-S2. Soft systolic murmur at the left sternal border. Gastrointestinal: Abdomen is soft, nontender, and nondistended with positive bowel sounds. Skin: Warm and dry. Extremities: No cyanosis or clubbing. Tight, 3+ pitting edema of the lower legs up to the knees. No palpable knots or cords. Negative Steven sign bilaterally. Peripheral pulses intact. Neurological: Alert. Cranial nerves grossly intact. No gross focal deficits to casual conversation. Psychiatric: Pleasant and cooperative with normal mood and affect. Judgment and insight intact. Objective Data Vital Signs Vital Signs: Vital Signs - 24 hr 03/03/25 14:47 03/03/25 17:00 03/03/25 17:30 Temperature 97.7 F Pulse Rate 63 52 L 47 L Respiratory Rate 16 22 H 20 Blood Pressure 228/57 H 241/77 H 233/73 H Pulse Oximetry 94 99 97 Oxygen Delivery 03/03/25 18:23 03/03/25 18:30 03/03/25 18:30 Temperature Pulse Rate 60 50 L 54 L Respiratory Rate 18 20 29 H Blood Pressure 252/70 H Pulse Oximetry 97 98 98 Oxygen Delivery 03/03/25 18:31 03/03/25 18:45 03/03/25 19:00 Temperature Pulse Rate 50 L 49 L 50 L Respiratory Rate 25 H 26 H 18 Blood Pressure 252/70 H 237/62 H Pulse Oximetry 97 98 98 Oxygen Delivery 03/03/25 19:00 03/03/25 19:02 03/03/25 19:24 Temperature Pulse Rate 46 L 49 L 64 Respiratory Rate 17 15 20 Blood Pressure 237/62 H Pulse Oximetry 98 98 91 Oxygen Delivery 03/03/25 19:30 03/03/25 19:31 03/03/25 19:45 Temperature Pulse Rate 55 L 59 L 51 L Respiratory Rate 16 21 H 19 Blood Pressure 231/192 H Pulse Oximetry 98 96 97 Oxygen Delivery 03/03/25 19:50 03/03/25 19:51 03/03/25 20:00 Temperature Pulse Rate 49 L 51 L 55 L Respiratory Rate 20 26 H 18 Blood Pressure 242/73 H 242/73 H Pulse Oximetry 98 100 100 Oxygen Delivery 03/03/25 20:02 03/03/25 20:15 03/03/25 20:30 Temperature Pulse Rate 58 L 59 L 49 L Respiratory Rate 18 16 22 H Blood Pressure 204/99 H 218/91 H Pulse Oximetry 99 99 99 Oxygen Delivery 03/03/25 20:30 03/03/25 20:32 03/03/25 20:45 Temperature Pulse Rate 59 L 48 L 49 L Respiratory Rate 20 17 20 Blood Pressure 218/91 H Pulse Oximetry 100 99 100 Oxygen Delivery 03/03/25 21:00 03/03/25 21:00 03/03/25 21:02 Temperature Pulse Rate 56 L 57 L 56 L Respiratory Rate 19 24 H 17 Blood Pressure 199/62 H 199/62 H Pulse Oximetry 99 Oxygen Delivery 03/03/25 21:15 03/03/25 21:34 03/03/25 21:45 Temperature Pulse Rate 66 81 54 L Respiratory Rate 21 H 19 21 H Blood Pressure Pulse Oximetry 94 99 Oxygen Delivery 03/03/25 22:00 03/03/25 22:15 03/03/25 22:31 Temperature Pulse Rate 58 L 60 66 Respiratory Rate 23 H 29 H 12 Blood Pressure Pulse Oximetry 97 98 96 Oxygen Delivery 03/03/25 22:41 03/03/25 22:42 03/03/25 22:45 Temperature Pulse Rate 58 L 55 L 57 L Respiratory Rate 19 21 H 28 H Blood Pressure 174/44 H 174/44 H Pulse Oximetry 97 97 96 Oxygen Delivery 03/03/25 22:47 03/03/25 23:00 03/03/25 23:15 Temperature Pulse Rate 58 L 58 L 62 Respiratory Rate 29 H 27 H 22 H Blood Pressure 188/42 H Pulse Oximetry 97 98 97 Oxygen Delivery 03/03/25 23:30 03/03/25 23:32 03/03/25 23:45 Temperature Pulse Rate 61 61 62 Respiratory Rate 21 H 24 H 21 H Blood Pressure 193/58 H Pulse Oximetry 97 97 98 Oxygen Delivery 03/04/25 00:00 03/04/25 00:15 03/04/25 00:31 Temperature Pulse Rate 53 L 59 L 61 Respiratory Rate 28 H 28 H 19 Blood Pressure Pulse Oximetry 98 97 Oxygen Delivery 03/04/25 00:49 03/04/25 01:00 03/04/25 01:15 Temperature Pulse Rate 72 53 L 56 L Respiratory Rate 17 17 15 Blood Pressure Pulse Oximetry 89 L 96 96 Oxygen Delivery 03/04/25 01:30 03/04/25 01:45 03/04/25 02:00 Temperature Pulse Rate 59 L 59 L 70 Respiratory Rate 22 H 23 H 16 Blood Pressure Pulse Oximetry 95 92 Oxygen Delivery 03/04/25 02:14 03/04/25 02:15 03/04/25 02:16 Temperature Pulse Rate 61 59 L 62 Respiratory Rate 18 21 H 19 Blood Pressure 228/54 H 216/49 H Pulse Oximetry 98 Oxygen Delivery Room Air 03/04/25 02:17 03/04/25 02:30 03/04/25 02:45 Temperature Pulse Rate 61 58 L 55 L Respiratory Rate 23 H 21 H 23 H Blood Pressure 216/49 H Pulse Oximetry 98 97 Oxygen Delivery 03/04/25 03:00 03/04/25 03:01 03/04/25 03:02 Temperature Pulse Rate 60 61 55 L Respiratory Rate 21 H 24 H 22 H Blood Pressure 217/40 H 201/51 H Pulse Oximetry 94 75 L 100 Oxygen Delivery 03/04/25 03:03 03/04/25 03:17 03/04/25 03:30 Temperature Pulse Rate 51 L 65 59 L Respiratory Rate 19 16 25 H Blood Pressure Pulse Oximetry 98 98 Oxygen Delivery 03/04/25 03:45 03/04/25 03:47 03/04/25 03:48 Temperature Pulse Rate 51 L 54 L 50 L Respiratory Rate 23 H 27 H 17 Blood Pressure 204/53 H Pulse Oximetry 96 95 95 Oxygen Delivery 03/04/25 04:00 03/04/25 04:15 03/04/25 04:30 Temperature Pulse Rate 69 52 L 54 L Respiratory Rate 22 H 18 23 H Blood Pressure 186/37 H Pulse Oximetry 97 96 Oxygen Delivery 03/04/25 04:58 03/04/25 05:02 03/04/25 06:00 Temperature 98.4 F Pulse Rate 54 L 54 L 55 L Respiratory Rate 23 H 16 Blood Pressure 186/37 H 199/58 H Pulse Oximetry 96 98 Oxygen Delivery 03/04/25 06:04 03/04/25 07:51 03/04/25 09:39 Temperature 97.5 F L Pulse Rate 57 L 50 L Respiratory Rate 24 H Blood Pressure 225/48 H Pulse Oximetry 97 Oxygen Delivery Room Air 03/04/25 10:58 Temperature Pulse Rate 46 L Respiratory Rate Blood Pressure 238/60 H Pulse Oximetry Oxygen Delivery Intake/Output Intake/Output: Intake & Output 03/01/25 03/02/25 03/03/25 03/04/25 23:59 23:59 23:59 23:59 Intake Total 600 Output Total 1 Balance 599 Meds/Results Medications: Active Medications Generic Name Dose Route Start Last Admin Trade Name Jerrica PRN Reason Stop Dose Admin Acetaminophen 650 mg 03/03/25 20:40 03/04/25 02:14 Acetaminophen 325 Mg Tablet PO 650 mg Q4H PRN Administration Mild Pain (1-3) or Fever Amlodipine Besylate 10 mg 03/04/25 09:00 03/04/25 09:40 Amlodipine Besylate 10 Mg Tablet PO 10 mg DAILY SONJA Administration Ascorbic Acid 250 mg 03/04/25 09:00 03/04/25 09:42 Ascorbic Acid 250 Mg Tablet PO 250 mg QAM SONJA Administration Aspirin 81 mg 03/04/25 09:00 03/04/25 09:42 Aspirin 81 Mg Enteric Tablet PO 81 mg DAILY SONJA Administration Dextrose 12.5 gm 03/03/25 20:40 Dextrose 50% 25 Gm/50 Ml Syringe IV PUSH PRN PRN Hypoglycemia Protocol Ferrous Sulfate 325 mg 03/04/25 09:00 03/04/25 09:41 Ferrous Sulfate [address] BY MOUTH 325 mg QAM SONJA Administration Furosemide 80 mg 03/04/25 17:00 Furosemide Inj 100 Mg/10 Ml Vial IV PUSH BID SONJA Glucagon 1 mg 03/03/25 20:40 Glucagon For Inj 1 Mg Vial IM PRN PRN Hypoglycemia Protocol Glucose 15 gm 03/03/25 20:40 Glucose Oral Gel 15 Gm Of Glucse In 37.5 Gm Tube PO PRN PRN Hypoglycemia Protocol Heparin Sodium (Porcine) 5,000 units 03/04/25 09:00 03/04/25 09:43 Heparin Sodium 5,000 Units/Ml Vial SUB-Q 5,000 units Q12HR SONJA Administration Hydralazine HCl 50 mg 03/04/25 08:00 03/04/25 06:36 Hydralazine Hcl 50 Mg Tablet BY MOUTH 50 mg TIDWM SONJA Administration Dextrose 1,000 mls @ 100 mls/hr 03/03/25 20:40 Dextrose 5% 1,000 Ml IVPB PRN PRN Hypoglycemia Protocol Insulin Aspart 3 - 6 units 03/04/25 08:00 03/04/25 09:43 Insulin Aspart (*Bkc) 100 Units/Ml SUB-Q Not Given TIDWM SONJA Protocol Insulin Aspart 1 - 3 units 03/04/25 21:00 Insulin Aspart (*Bkc) 100 Units/Ml SUB-Q HS SONJA Protocol Insulin Glargine 40 units 03/04/25 18:00 Insulin Glargine (*Bkc) 100 Units/Ml SUB-Q QPM [facility] Irbesartan 300 mg 03/04/25 09:00 03/04/25 06:36 Irbesartan 150 Mg Tablet PO 300 mg DAILY SONJA Administration Nebivolol 20 mg 03/04/25 09:00 03/04/25 09:39 Nebivolol Hcl 5 Mg Tablet PO 20 mg DAILY SONJA Administration Perflutren Lipid Microsphere 0 ml 03/03/25 20:40 Perflutren Lipid Microspheres 1.5 Ml Vial Diluted To 10 Ml Total Volume IV PUSH 03/06/25 20:41 ONCE PRN adequate visualization Protocol Pravastatin Sodium 10 mg 03/04/25 09:00 03/04/25 09:38 Pravastatin Sodium 10 Mg Tablet BY MOUTH 10 mg DAILY SONJA Administration Sodium Bicarbonate 650 mg 03/04/25 08:00 03/04/25 09:41 Sodium Bicarbonate Tab 650 Mg Tablet PO 650 mg BIDWM SONJA Administration Vitamin D 50 mcg 03/04/25 09:00 03/04/25 09:41 Cholecalciferol (Vitamin D3) 25 Mcg (1,000 Units) Tablet PO 50 mcg QAM SONJA Administration Radiology Results: ITS Impressions Chest X-Ray 03/03/25 17:45 IMPRESSION: Moderate pulmonary vascular congestion with bilateral pleural effusions, right greater than left. Venous Doppler Study 03/03/25 18:57 IMPRESSION: 1. No deep venous thrombosis. Labs Labs: Laboratory Results - last 24 hr 03/03/25 03/03/25 03/03/25 17:14 18:41 20:48 WBC 10.1 H RBC 3.28 L Hgb 10.8 L Hct 33.5 L MCV 102.1 H MCH 32.9 MCHC 32.2 RDW 13.2 Plt Count 273 MPV 11.3 H Immature Gran % (Auto) 0.4 Neut % (Auto) 62.3 Lymph % (Auto) 27.6 [place] % (Auto) 6.4 Eos % (Auto) 2.4 Baso % (Auto) 0.9 Lymph # (Auto) 2.79 [place] # (Auto) 0.7 H Eos # (Auto) 0.2 Baso # (Auto) 0.1 Abs Immat Gran (auto) 0.04 H Absolute Neuts (auto) 6.3 Absolute Nucleated RBC 0.000 Nucleated RBC % 0.0 PT 12.8 INR 1.0 APTT 30.9 Sodium 144 Potassium 4.0 Chloride 117 H Carbon Dioxide 20 L Anion Gap 7 BUN 36 H Creatinine 3.03 H Estim Creat Clear Calc Not Reportable Estimated GFR 15 L Glucose 100 POC Capillary Glucose 70 Calcium 9.2 Phosphorus Magnesium Total Bilirubin 0.4 AST 26 ALT 25 Alkaline Phosphatase 62 Troponin I 0.043 H* 0.040 H* NT-Pro-B Natriuret Pep 6880 H Total Protein 6.6 Albumin 3.5 TSH (Reflex) 03/04/25 03/04/25 03/04/25 00:19 03:06 07:25 WBC RBC Hgb Hct MCV MCH MCHC RDW Plt Count MPV Immature Gran % (Auto) Neut % (Auto) Lymph % (Auto) [place] % (Auto) Eos % (Auto) Baso % (Auto) Lymph # (Auto) [place] # (Auto) Eos # (Auto) Baso # (Auto) Abs Immat Gran (auto) Absolute Neuts (auto) Absolute Nucleated RBC Nucleated RBC % PT INR APTT Sodium Potassium Chloride Carbon Dioxide Anion Gap BUN Creatinine Estim Creat Clear Calc Estimated GFR Glucose POC Capillary Glucose 115 H 108 H Calcium Phosphorus Magnesium Total Bilirubin AST ALT Alkaline Phosphatase Troponin I 0.035 H* NT-Pro-B Natriuret Pep Total Protein Albumin TSH (Reflex) 03/04/25 09:05 WBC RBC Hgb Hct MCV MCH MCHC RDW Plt Count MPV Immature Gran % (Auto) Neut % (Auto) Lymph % (Auto) [place] % (Auto) Eos % (Auto) Baso % (Auto) Lymph # (Auto) [place] # (Auto) Eos # (Auto) Baso # (Auto) Abs Immat Gran (auto) Absolute Neuts (auto) Absolute Nucleated RBC Nucleated RBC % PT INR APTT Sodium 138 Potassium 4.6 Chloride 104 Carbon Dioxide 26 Anion Gap 8 BUN 13 D Creatinine 0.77 Estim Creat Clear Calc 69 Estimated GFR > 60 Glucose 92 POC Capillary Glucose Calcium 9.6 Phosphorus 3.4 Magnesium 2.0 Total Bilirubin AST ALT Alkaline Phosphatase Troponin I NT-Pro-B Natriuret Pep Total Protein Albumin TSH (Reflex) 1.900
[2025-03-04 11:35] LABS: Hematocrit 31.4 % (37.0-47.0); Hemoglobin 10.1 g/dL (12.0-15.0); Immature Granulocyte Percent A 0.2 % (0-0.5); Immature Platelet Fraction Pct 5.9 % (0.9-11.2); Lymphocytes Absolute Auto 1.69 K/mm3 (0.9-3.2); Mean Corpuscular HGB Conc 32.2 g/dl (32-36); Mean Corpuscular Hemoglobin 33.6 pg (26-34); Mean Corpuscular Volume 104.3 fl (80-100); Nucleated Red Blood Cells Absolute Auto 0.000 K/mm3 (0.0-0.012); Nucleated Red Blood Cells Perc 0.0 % (0.0-0.2); Platelet Count Result 227 k/mm3 (150-375); Red Blood Count 3.01 M/mm3 (4.2-5.4); White Blood Count 8.3 K/mm3 (4.5-10.0)
[2025-03-04 11:35] LABS: Creatine Kinase 93 U/L (30-135)
[2025-03-04 12:36] LABS: Alanine Aminotransferase 22 U/L (6-35); Albumin Level 4.4 g/dL (3.5-5.1); Alkaline Phosphatase 40 U/L (38-126); Aspartate Amino Transferase 26 U/L (14-36); Bilirubin,Total 0.3 mg/dL (0.2-1.3); Total Protein 7.1 g/dL (6.3-8.2)
[2025-03-04 13:48] LABS: Urea Random Urine < 67 MG/DL
[2025-03-04 13:56] LABS: Total Protein Urine Random 268 mg/dL; Ur Ttl Prot Creatinine Ratio 25.05 mg/mg (0-0.20)
[2025-03-04] MEDS: FUROSEMIDE INJ 100 MG/10 ML VIAL 80 MG IV PUSH (16:30)
[2025-03-04] MEDS: INSULIN GLARGINE (*BKC) 100 UNITS/ML 40 UNITS SUB-Q (20:11)
[2025-03-04] MEDS: INSULIN ASPART (*BKC) 100 UNITS/ML SUB-Q (20:15)
[2025-03-04 22:23] LABS: Anion Gap 9 mmol/L (4-12); Blood Urea Nitrogen 41 mg/dL (7-17); Calcium 8.8 mg/dL (8.4-10.2); Carbon Dioxide 19 mmol/L (22-30); Chloride 110 mmol/L (98-107); Estimated CRCL calculation 20 ml/min; Estimated Glomerular Filt Rate 17; Glucose 157 mg/dL (65-110); Potassium 3.9 mmol/L (3.4-5.0); Sodium 138 mmol/L (137-145)
[2025-03-05] VITALS (20 sets, daily range): BP systolic 123–207; BP diastolic 35–69; PULSE 46–68; RESP 18–20; TEMP 36.4–36.8; O2SAT 96–98
[2025-03-05 05:12] LABS: Hematocrit 32.8 % (37.0-47.0); Hemoglobin 10.5 g/dL (12.0-15.0); Mean Corpuscular HGB Conc 32.0 g/dl (32-36); Mean Corpuscular Hemoglobin 33.0 pg (26-34); Mean Corpuscular Volume 103.1 fl (80-100); Platelet Count Result 253 k/mm3 (150-375); Red Blood Count 3.18 M/mm3 (4.2-5.4); White Blood Count 9.3 K/mm3 (4.5-10.0)
[2025-03-05 05:28] LABS: Anion Gap 9 mmol/L (4-12); Blood Urea Nitrogen 41 mg/dL (7-17); Calcium 8.8 mg/dL (8.4-10.2); Carbon Dioxide 15 mmol/L (22-30); Chloride 113 mmol/L (98-107); Estimated CRCL calculation 20 ml/min; Estimated Glomerular Filt Rate 17; Glucose 84 mg/dL (65-110); Magnesium 2.2 mg/dL (1.6-2.3); Potassium 4.1 mmol/L (3.4-5.0); Sodium 137 mmol/L (137-145)
[2025-03-05] MEDS: FUROSEMIDE INJ 100 MG/10 ML VIAL 80 MG IV PUSH ×2 (08:28→18:03)
[2025-03-05] MEDS: NEBIVOLOL HCL 5 MG TABLET 20 MG PO (08:51)
[2025-03-05] MEDS: CHOLECALCIFEROL (VITAMIN D3) 25 MCG (1,000 UNITS) TABLET 50 MCG PO (08:51)
[2025-03-05] MEDS: ASCORBIC ACID 250 MG TABLET PO (08:52)
[2025-03-05] MEDS: IRBESARTAN 150 MG TABLET 300 MG PO (08:52)
[2025-03-05] MEDS: PRAVASTATIN SODIUM 10 MG TABLET BY MOUTH (08:52)
[2025-03-05] MEDS: ASPIRIN 81 MG ENTERIC TABLET PO (08:52)
[2025-03-05] MEDS: FERROUS SULFATE 325 MG TABLET DR BY MOUTH (08:52)
[2025-03-05] MEDS: SODIUM BICARBONATE TAB 650 MG TABLET PO (08:53)
--- NOTE | 2025-03-05 11:04 | P.PNNP_ITS ---
Progress Note: A&P Assessment and Plan (1) Acute kidney injury superimposed on CKD: Code(s): N17.9 - Acute kidney failure, unspecified; N18.9 - Chronic kidney disease, unspecified Status: Acute Assessment and Plan: The patient has chronic kidney disease. This is due to diabetes and hypertension. The patient has acute on chronic kidney disease. This could be progression of her kidney disease, or this could be because of the very high blood pressure versus some intrinsic disease other than diabetes or hypertension. The patient does have blood in the urine as well as severe proteinuria, more than usually happens with diabetes, but not completely out of the realm. The patient has no symptoms of uremia. We do not need to do dialysis at this point. We discussed kidney biopsy last office visit, however with the of her this did not happen. Will schedule a kidney biopsy. The patient, daughter Lynn and I discussed the renal biopsy. The patient will get an ultrasound to localize the kidneys.? The patient will get local injection of lidocaine for anesthesia.? A needle will be placed through the skin and will enter the kidney.? One or more small pieces of the kidney will be removed, less than 1mm wide by about 5mm long. The patient will be told to lie on the back for a couple of hours to make sure no bleeding occurs.? We can't put a finger on the kidney hole so we rely on the intestines, etc. pushing on the kidney to stop the bleeding.? Everybody bleeds a little to cause the scab but a few will experience more bleeding.? In some it will be more serious.? 1/100 may need a blood transfusion and 1/500-1000 will need to have someone go in and stop the bleeding and possibly remove the kidney.? This is very rare and has only happened to myself once in the 30 plus years I have been referring for biopsies.? Will hold aspirin. taking 81mg per day. Patient already received today. We can wait till Friday to do the biopsy to let the aspirin wear off. (2) Hypertensive urgency: Code(s): I16.0 - Hypertensive urgency Status: Acute Assessment and Plan: The patient's blood pressure was very high on admission. She was not taking her blood pressure at home so it is not clear how long this had been going on. She is currently on amlodipine 10, hydralazine 50 t.i.d., irbesartan 300, and nebivolol 20. The patient was on amlodipine as an outpatient and her blood pressure was not all that great even on that. So will switch to nifedipine today to get the blood pressure down so we can do a biopsy. Course in the long run it is better to have good blood pressure control as well. (3) Acute on chronic diastolic congestive heart failure: Code(s): I50.33 - Acute on chronic diastolic (congestive) heart failure Status: Acute Assessment and Plan: EF was still good last check. Patient also has diastolic dysfunction and pulmonary hypertension. Patient probably has some sodium retention due to her renal function as well Will increase the furosemide to 80 b.i.d. the patient made a good amount of urine yesterday, 2551cc. 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 Subjective Date/time seen: 03/05/25 11:04 Interval history: Patient feels a little better. Not as short of breath. A little less swollen Review of Systems Cardiovascular: Cardiovascular: Reports no additional cardiovascular complaints Respiratory: Respiratory: Reports no additional respiratory complaints Gastrointestinal: Gastrointestinal: Reports no additional gastrointestinal complaints Genitourinary: Genitourinary: Reports no additional female genitourinary complaints Exam Narrative: WDWN in NAD skin no rash head ncat lungs clear cor reg no rub abd BS+ nontender and soft ext 1+ bilateral edema, slightly worse on the right (chronically). Objective Data Vital Signs Vital Signs: Vital Signs - 24 hr 03/04/25 11:43 03/04/25 11:43 03/04/25 12:00 Temperature 97.8 F Pulse Rate 46 L 55 L 55 L Respiratory Rate 20 Blood Pressure 228/63 H 241/63 H Pulse Oximetry 97 Oxygen Delivery 03/04/25 14:00 03/04/25 15:48 03/04/25 16:00 Temperature 97.7 F Pulse Rate 54 L 55 L 52 L Respiratory Rate 18 Blood Pressure 225/66 H Pulse Oximetry 97 Oxygen Delivery 03/04/25 18:29 03/04/25 18:41 03/04/25 20:00 Temperature 98.1 F Pulse Rate 55 L 59 L 57 L Respiratory Rate 18 Blood Pressure 184/53 H 152/45 H Pulse Oximetry 96 97 Oxygen Delivery 03/04/25 20:00 03/04/25 20:00 03/04/25 22:00 Temperature Pulse Rate 57 L 61 Respiratory Rate Blood Pressure Pulse Oximetry Oxygen Delivery Room Air 03/04/25 23:56 03/05/25 00:00 03/05/25 00:00 Temperature 98.1 F Pulse Rate 44 L 48 L Respiratory Rate 18 Blood Pressure 167/64 H Pulse Oximetry 98 Oxygen Delivery Room Air 03/05/25 01:00 03/05/25 02:00 03/05/25 04:00 Temperature Pulse Rate 48 L Respiratory Rate Blood Pressure 184/53 H Pulse Oximetry Oxygen Delivery Room Air 03/05/25 04:00 03/05/25 04:00 03/05/25 06:00 Temperature 98.0 F Pulse Rate 68 49 L 50 L Respiratory Rate 18 Blood Pressure 207/69 H Pulse Oximetry 98 Oxygen Delivery 03/05/25 06:21 03/05/25 08:05 03/05/25 08:51 Temperature 97.6 F Pulse Rate 52 L 52 L Respiratory Rate 20 Blood Pressure 148/57 H 190/46 H Pulse Oximetry 97 Oxygen Delivery Intake/Output Intake/Output: Intake & Output 03/02/25 03/03/25 03/04/25 03/05/25 23:59 23:59 23:59 23:59 Intake Total 1380 480 Output Total 2555 1050 Balance -4216 -081 Meds/Results Medications: Active Medications Generic Name Dose Route Start Last Admin Trade Name Freq PRN Reason Stop Dose Admin Acetaminophen 650 mg 03/03/25 20:40 03/04/25 02:14 Acetaminophen 325 Mg Tablet PO 650 mg Q4H PRN Administration Mild Pain (1-3) or Fever Ascorbic Acid 250 mg 03/04/25 09:00 03/05/25 08:52 Ascorbic Acid 250 Mg Tablet PO 250 mg QAM SONJA Administration Aspirin 81 mg 03/04/25 09:00 03/05/25 08:52 Aspirin 81 Mg Enteric Tablet PO 81 mg DAILY SONJA Administration Dextrose 12.5 gm 03/03/25 20:40 Dextrose 50% 25 Gm/50 Ml Syringe IV PUSH PRN PRN Hypoglycemia Protocol Ferrous Sulfate 325 mg 03/04/25 09:00 03/05/25 08:52 Ferrous Sulfate [address] BY MOUTH 325 mg QAM SONJA Administration Furosemide 80 mg 03/04/25 17:00 03/05/25 08:28 Furosemide Inj 100 Mg/10 Ml Vial IV PUSH 80 mg BID SONJA Administration Glucagon 1 mg 03/03/25 20:40 Glucagon For Inj 1 Mg Vial IM PRN PRN Hypoglycemia Protocol Glucose 15 gm 03/03/25 20:40 Glucose Oral Gel 15 Gm Of Glucse In 37.5 Gm Tube PO PRN PRN Hypoglycemia Protocol Heparin Sodium (Porcine) 5,000 units 03/04/25 09:00 03/05/25 08:29 Heparin Sodium 5,000 Units/Ml Vial SUB-Q 5,000 units Q12HR SONJA Administration Hydralazine HCl 50 mg 03/04/25 08:00 03/05/25 08:52 Hydralazine Hcl 50 Mg Tablet BY MOUTH 50 mg TIDWM SONJA Administration Hydralazine HCl 10 mg 03/05/25 05:12 03/05/25 05:36 Hydralazine Hcl 20 Mg/Ml Vial IV PUSH 10 mg Q6H PRN Administration Blood Pressure - High Dextrose 1,000 mls @ 100 mls/hr 03/03/25 20:40 Dextrose 5% 1,000 Ml IVPB PRN PRN Hypoglycemia Protocol Insulin Aspart 3 - 6 units 03/04/25 08:00 03/05/25 08:36 Insulin Aspart (*Bkc) 100 Units/Ml SUB-Q Not Given TIDWM SONJA Protocol Insulin Aspart 1 - 3 units 03/04/25 21:00 03/04/25 20:15 Insulin Aspart (*Bkc) 100 Units/Ml SUB-Q 1 units HS SONJA Administration Protocol Insulin Glargine 40 units 03/04/25 21:00 03/04/25 20:11 Insulin Glargine (*Bkc) 100 Units/Ml SUB-Q 40 units HS SONJA Administration Irbesartan 300 mg 03/04/25 09:00 03/05/25 08:52 Irbesartan 150 Mg Tablet PO 300 mg DAILY SONJA Administration Nebivolol 20 mg 03/04/25 09:00 03/05/25 08:51 Nebivolol Hcl 5 Mg Tablet PO 20 mg DAILY SONJA Administration Nifedipine 60 mg 03/05/25 09:00 03/05/25 08:52 Nifedipine 30 Mg Tab.Er.24 PO 60 mg QAM SONJA Administration Perflutren Lipid Microsphere 0 ml 03/03/25 20:40 Perflutren Lipid Microspheres 1.5 Ml Vial Diluted To 10 Ml Total Volume IV PUSH 03/06/25 20:41 ONCE PRN adequate visualization Protocol Pravastatin Sodium 10 mg 03/04/25 09:00 03/05/25 08:52 Pravastatin Sodium 10 Mg Tablet BY MOUTH 10 mg DAILY SONJA Administration Sodium Bicarbonate 1,300 mg 03/05/25 12:00 Sodium Bicarbonate Tab 650 Mg Tablet PO TIDWM SONJA Vitamin D 50 mcg 03/04/25 09:00 03/05/25 08:51 Cholecalciferol (Vitamin D3) 25 Mcg (1,000 Units) Tablet PO 50 mcg QAM SONJA Administration Radiology Results: ITS Impressions Chest X-Ray 03/03/25 17:45 IMPRESSION: Moderate pulmonary vascular congestion with bilateral pleural effusions, right greater than left. Venous Doppler Study 03/03/25 18:57 IMPRESSION: 1. No deep venous thrombosis. Renal Ultrasound 03/04/25 15:07 IMPRESSION: Left renal cysts. Otherwise, Normal study. Labs Labs: Laboratory Results - last 24 hr 03/04/25 03/04/25 03/04/25 09:04 09:05 11:37 WBC 8.3 RBC 3.01 L Hgb 10.1 L Hct 31.4 L MCV 104.3 H MCH 33.6 MCHC 32.2 RDW 13.5 Plt Count 227 MPV 13.0 H Immature Gran % (Auto) 0.2 Neut % (Auto) 68.6 Lymph % (Auto) 20.3 [place] % (Auto) 6.6 Eos % (Auto) 3.2 Baso % (Auto) 1.1 Lymph # (Auto) 1.69 [place] # (Auto) 0.6 Eos # (Auto) 0.3 Baso # (Auto) 0.1 Abs Immat Gran (auto) 0.02 Absolute Neuts (auto) 5.7 Absolute Nucleated RBC 0.000 Nucleated RBC % 0.0 % Immature Plt Fraction 5.9 Sodium 138 Potassium 4.6 Chloride 104 Carbon Dioxide 26 Anion Gap 8 BUN 13 D Creatinine 0.77 Estim Creat Clear Calc 69 Estimated GFR > 60 Glucose 92 POC Capillary Glucose 155 H Calcium 9.6 Phosphorus Magnesium Total Bilirubin 0.3 AST 26 ALT 22 Alkaline Phosphatase 40 Total Creatine Kinase 93 Total Protein 7.1 Albumin 4.4 U Random Total Protein Ur Random Sodium Ur Random Urea Urine Creatinine Protein/Creat Ratio 2 03/04/25 03/04/25 03/04/25 13:05 15:40 19:53 WBC RBC Hgb Hct MCV MCH MCHC RDW Plt Count MPV Immature Gran % (Auto) Neut % (Auto) Lymph % (Auto) [place] % (Auto) Eos % (Auto) Baso % (Auto) Lymph # (Auto) [place] # (Auto) Eos # (Auto) Baso # (Auto) Abs Immat Gran (auto) Absolute Neuts (auto) Absolute Nucleated RBC Nucleated RBC % % Immature Plt Fraction Sodium Potassium Chloride Carbon Dioxide Anion Gap BUN Creatinine Estim Creat Clear Calc Estimated GFR Glucose POC Capillary Glucose 143 H 204 H Calcium Phosphorus Magnesium Total Bilirubin AST ALT Alkaline Phosphatase Total Creatine Kinase Total Protein Albumin U Random Total Protein 268 Ur Random Sodium 88 Ur Random Urea < 67 Urine Creatinine 10.7 Protein/Creat Ratio 2 25.05 H 03/04/25 03/05/25 03/05/25 21:36 04:30 07:29 WBC 9.3 RBC 3.18 L Hgb 10.5 L Hct 32.8 L MCV 103.1 H MCH 33.0 MCHC 32.0 RDW 13.2 Plt Count 253 MPV 12.3 H Immature Gran % (Auto) Neut % (Auto) Lymph % (Auto) [place] % (Auto) Eos % (Auto) Baso % (Auto) Lymph # (Auto) [place] # (Auto) Eos # (Auto) Baso # (Auto) Abs Immat Gran (auto) Absolute Neuts (auto) Absolute Nucleated RBC Nucleated RBC % % Immature Plt Fraction Sodium 138 137 Potassium 3.9 4.1 Chloride 110 H 113 H Carbon Dioxide 19 L 15 L Anion Gap 9 9 BUN 41 H D 41 H Creatinine 2.81 H 2.80 H Estim Creat Clear Calc 20 20 Estimated GFR 17 L 17 L Glucose 157 H 84 POC Capillary Glucose 109 H Calcium 8.8 8.8 Phosphorus 5.4 H Magnesium 2.2 Total Bilirubin AST ALT Alkaline Phosphatase Total Creatine Kinase Total Protein Albumin U Random Total Protein Ur Random Sodium Ur Random Urea Urine Creatinine Protein/Creat Ratio 2
[2025-03-05] MEDS: SODIUM BICARBONATE TAB 650 MG TABLET 1300 MG PO ×2 (12:35→18:04)
--- NOTE | 2025-03-05 16:40 | PM.IMPN ---
Progress Note: A&P Assessment and Plan (1) Acute on chronic diastolic congestive heart failure: Code(s): I50.33 - Acute on chronic diastolic (congestive) heart failure Status: Acute (2) Acute on chronic kidney failure: Code(s): N17.9 - Acute kidney failure, unspecified; N18.9 - Chronic kidney disease, unspecified Status: Acute (3) Elevated troponin: Code(s): R79.89 - Other specified abnormal findings of blood chemistry Status: Acute (4) Hypertensive urgency: Code(s): I16.0 - Hypertensive urgency Status: Acute (5) Insulin dependent type 2 diabetes mellitus: Code(s): E11.9 - Type 2 diabetes mellitus without complications; Z79.4 - manager long term care (current) use of insulin Status: Acute (6) Obstructive sleep apnea on CPAP: Code(s): G47.33 - Obstructive sleep apnea (adult) (pediatric); Z99.89 - Dependence on other enabling machines and devices Status: Acute Plan This is a very pleasant 69-year-old female with insulin-dependent type 2 diabetes mellitus, hypertension, diastolic dysfunction chronic kidney disease, obstructive sleep apnea, gastroesophageal reflux disease, depression, and anxiety who presented to the emergency department via private vehicle for evaluation of abnormal labs and elevated blood pressures. She gives at least a month long history of increasing bilateral lower extremity edema and progressive dyspnea on exertion and has seen her telecom assistant, Dr. Horta, and grab operator, Dr. Cruz recently and had some medication changes due to uncontrolled blood pressures and worsening renal function (amlodipine discontinued, nebivolol increased, max dose irbesartan, and hydralazine t.i.d.). Today she had a follow-up appointment with her primary care provider and was referred to the emergency department for evaluation due to continued high blood pressures (systolics over 200) and increasing creatinine. She does not really have any complaints aside from those as listed above. With further questioning she admits that her appetite has been poor the last couple of after the unexpected of her from an [place]. She denies fever, cold and flu symptoms, chest pain, orthopnea, calf pain, cough, nausea, vomiting, diarrhea, and dysuria. In the ED: Blood pressure was 228/57 on arrival. The remainder of her vital signs were stable. Labs were significant for a WBC count of 10.1, hemoglobin 10.8, MCV 102.1, chloride 117, carbon dioxide 20, anion gap 7, BUN 36, creatinine 3.03, troponin 0.043, proBNP 6880, albumin 3.5. EKG showed sinus bradycardia with nonspecific ST and T-wave abnormalities in the high lateral leads and delayed precordial R/S transition. Lower extremity venous Doppler ultrasounds were negative for DVT. Chest x-ray showed moderate pulmonary vascular congestion with bilateral pleural effusions, right greater than left. She received furosemide 40 mg IV, hydralazine 10 mg IV, and 1 in nitroglycerin paste. She is being admitted in this setting for further treatment of poorly controlled hypertension, volume overload, and worsening kidney function accelerated hypertension currently on amlodipine 10 mg every below 20 mg irbesartan 300 mg hydralazine 50 3 times a day. And Lasix 80 b.i.d. Primarily systolic hypertension. iv hydralazine prn. Amlodipine switch to nifedipine has not much response from amlodipine. Renal duplex negative for renal artery stenosis. recent stresor with loss of ryanne on ckd stage neprology on board. Creatinine to 3. Creatinine down to 0.7 today.? Baseline creatinine around mid 1s to low 2s the past. Urine protein elevated more than 18. Plan for renal biopsy aspirin on hold chf acute on chronic diastolic. iv diuresis as tolerated BNP elevated at 6880. Venous duplex negative for DVT. Chest x-ray with moderate pulmonary vascular congestion with bilateral pleural effusion right greater than left. Echo 02/2024 with EF 60-65% mild pulmonary hypertension mild MR mild TR abnormal diastolic function repeat echo with EF 60-65% moderate concentric left ventricular wall thickness diastolic dysfunction abnormal mild pulmonary hypertension [id number] mitral regurgitation elevated troponin Mild flat JAMES on cpap non compliant with cpap. Advised to use CPAP type 2 dm: basal insulin, ssi. GERD Anxiety depression DVT prophylaxis heparin subQ Subjective Date/time seen: 03/05/25 16:40 Interval history: Feels better. No new complaints. Blood pressure trend reviewed. Discussed with grab operator. Did not use CPAP last night. Review of Systems Review of Systems: All systems reviewed & are unremarkable except as noted in HPI and below Exam Narrative: General: Nontoxic-appearing female sitting up in bed in no acute distress. HEENT: PERRL, EOMI. Sclera anicteric. Moist mucous membranes. Oropharynx is clear. Neck: Supple. No obvious JVD. Respiratory: Respirations are nonlabored and she is speaking in full sentences. Lung sounds are a bit diminished at the bases with faint crackles on the right. Cardiovascular: Regular rate and rhythm with S1-S2. Soft systolic murmur at the left sternal border. Gastrointestinal: Abdomen is soft, nontender, and nondistended with positive bowel sounds. Skin: Warm and dry. Extremities: No cyanosis or clubbing. Tight, 3+ pitting edema of the lower legs up to the knees. No palpable knots or cords. Negative Steven sign bilaterally. Peripheral pulses intact. Neurological: Alert. Cranial nerves grossly intact. No gross focal deficits to casual conversation. Psychiatric: Pleasant and cooperative with normal mood and affect. Judgment and insight intact. Objective Data Vital Signs Vital Signs: Vital Signs - 24 hr 03/04/25 18:29 03/04/25 18:41 03/04/25 20:00 Temperature 98.1 F Pulse Rate 55 L 59 L 57 L Respiratory Rate 18 Blood Pressure 184/53 H 152/45 H Pulse Oximetry 96 97 Oxygen Delivery 03/04/25 20:00 03/04/25 20:00 03/04/25 22:00 Temperature Pulse Rate 57 L 61 Respiratory Rate Blood Pressure Pulse Oximetry Oxygen Delivery Room Air 03/04/25 23:56 03/05/25 00:00 03/05/25 00:00 Temperature 98.1 F Pulse Rate 44 L 48 L Respiratory Rate 18 Blood Pressure 167/64 H Pulse Oximetry 98 Oxygen Delivery Room Air 03/05/25 01:00 03/05/25 02:00 03/05/25 04:00 Temperature Pulse Rate 48 L Respiratory Rate Blood Pressure 184/53 H Pulse Oximetry Oxygen Delivery Room Air 03/05/25 04:00 03/05/25 04:00 03/05/25 06:00 Temperature 98.0 F Pulse Rate 68 49 L 50 L Respiratory Rate 18 Blood Pressure 207/69 H Pulse Oximetry 98 Oxygen Delivery 03/05/25 06:21 03/05/25 08:00 03/05/25 08:05 Temperature 97.6 F Pulse Rate 60 52 L Respiratory Rate 20 Blood Pressure 148/57 H 190/46 H Pulse Oximetry 97 Oxygen Delivery 03/05/25 08:51 03/05/25 10:00 03/05/25 12:12 Temperature 98.3 F Pulse Rate 52 L 54 L 51 L Respiratory Rate 20 Blood Pressure 182/53 H Pulse Oximetry 98 Oxygen Delivery 03/05/25 15:05 03/05/25 16:29 Temperature 97.5 F L Pulse Rate 46 L 48 L Respiratory Rate 20 Blood Pressure 123/39 L 132/35 L Pulse Oximetry 96 Oxygen Delivery Intake/Output Intake/Output: Intake & Output 03/02/25 03/03/25 03/04/25 03/05/25 23:59 23:59 23:59 23:59 Intake Total 1380 720 Output Total 2551 1450 Balance -0046 -898 Meds/Results Medications: Active Medications Generic Name Dose Route Start Last Admin Trade Name Freq PRN Reason Stop Dose Admin Acetaminophen 650 mg 03/03/25 20:40 03/04/25 02:14 Acetaminophen 325 Mg Tablet PO 650 mg Q4H PRN Administration Mild Pain (1-3) or Fever Ascorbic Acid 250 mg 03/04/25 09:00 03/05/25 08:52 Ascorbic Acid 250 Mg Tablet PO 250 mg QAM SONJA Administration Dextrose 12.5 gm 03/03/25 20:40 Dextrose 50% 25 Gm/50 Ml Syringe IV PUSH PRN PRN Hypoglycemia Protocol Ferrous Sulfate 325 mg 03/04/25 09:00 03/05/25 08:52 Ferrous Sulfate [address] BY MOUTH 325 mg QAM SONJA Administration Furosemide 80 mg 03/04/25 17:00 03/05/25 08:28 Furosemide Inj 100 Mg/10 Ml Vial IV PUSH 80 mg BID SONJA Administration Glucagon 1 mg 03/03/25 20:40 Glucagon For Inj 1 Mg Vial IM PRN PRN Hypoglycemia Protocol Glucose 15 gm 03/03/25 20:40 Glucose Oral Gel 15 Gm Of Glucse In 37.5 Gm Tube PO PRN PRN Hypoglycemia Protocol Heparin Sodium (Porcine) 5,000 units 03/04/25 09:00 03/05/25 08:29 Heparin Sodium 5,000 Units/Ml Vial SUB-Q 5,000 units Q12HR SONJA Administration Hydralazine HCl 10 mg 03/05/25 05:12 03/05/25 05:36 Hydralazine Hcl 20 Mg/Ml Vial IV PUSH 10 mg Q6H PRN Administration Blood Pressure - High Hydralazine HCl 50 mg 03/05/25 17:00 Hydralazine Hcl 50 Mg Tablet BY MOUTH TIDWM SONJA Dextrose 1,000 mls @ 100 mls/hr 03/03/25 20:40 Dextrose 5% 1,000 Ml IVPB PRN PRN Hypoglycemia Protocol Insulin Aspart 3 - 6 units 03/04/25 08:00 03/05/25 12:33 Insulin Aspart (*Bkc) 100 Units/Ml SUB-Q Not Given TIDWM SONJA Protocol Insulin Aspart 1 - 3 units 03/04/25 21:00 03/04/25 20:15 Insulin Aspart (*Bkc) 100 Units/Ml SUB-Q 1 units HS SONJA Administration Protocol Insulin Glargine 40 units 03/04/25 21:00 03/04/25 20:11 Insulin Glargine (*Bkc) 100 Units/Ml SUB-Q 40 units HS SONJA Administration Irbesartan 300 mg 03/04/25 09:00 03/05/25 08:52 Irbesartan 150 Mg Tablet PO 300 mg DAILY SONJA Administration Nebivolol 20 mg 03/04/25 09:00 03/05/25 08:51 Nebivolol Hcl 5 Mg Tablet PO 20 mg DAILY SONJA Administration Nifedipine 60 mg 03/05/25 09:00 03/05/25 08:52 Nifedipine 30 Mg Tab.Er.24 PO 60 mg QAM SONJA Administration Perflutren Lipid Microsphere 0 ml 03/03/25 20:40 Perflutren Lipid Microspheres 1.5 Ml Vial Diluted To 10 Ml Total Volume IV PUSH 03/06/25 20:41 ONCE PRN adequate visualization Protocol Pravastatin Sodium 10 mg 03/04/25 09:00 03/05/25 08:52 Pravastatin Sodium 10 Mg Tablet BY MOUTH 10 mg DAILY SONJA Administration Sodium Bicarbonate 1,300 mg 03/05/25 12:00 03/05/25 12:35 Sodium Bicarbonate Tab 650 Mg Tablet PO 1,300 mg TIDWM SONJA Administration Vitamin D 50 mcg 03/04/25 09:00 03/05/25 08:51 Cholecalciferol (Vitamin D3) 25 Mcg (1,000 Units) Tablet PO 50 mcg QAM SONJA Administration Radiology Results: ITS Impressions Chest X-Ray 03/03/25 17:45 IMPRESSION: Moderate pulmonary vascular congestion with bilateral pleural effusions, right greater than left. Venous Doppler Study 03/03/25 18:57 IMPRESSION: 1. No deep venous thrombosis. Renal Ultrasound 03/04/25 15:07 IMPRESSION: Left renal cysts. Otherwise, Normal study. Arterial/Peripheral Duplex 03/05/25 12:49 IMPRESSION: 1. No Doppler evidence of renal artery stenosis. Labs Labs: Laboratory Results - last 24 hr 03/04/25 03/04/25 03/05/25 19:53 21:36 04:30 WBC 9.3 RBC 3.18 L Hgb 10.5 L Hct 32.8 L MCV 103.1 H MCH 33.0 MCHC 32.0 RDW 13.2 Plt Count 253 MPV 12.3 H Sodium 138 137 Potassium 3.9 4.1 Chloride 110 H 113 H Carbon Dioxide 19 L 15 L Anion Gap 9 9 BUN 41 H D 41 H Creatinine 2.81 H 2.80 H Estim Creat Clear Calc 20 20 Estimated GFR 17 L 17 L Glucose 157 H 84 POC Capillary Glucose 204 H Calcium 8.8 8.8 Phosphorus 5.4 H Magnesium 2.2 03/05/25 03/05/25 03/05/25 07:29 11:53 16:01 WBC RBC Hgb Hct MCV MCH MCHC RDW Plt Count MPV Sodium Potassium Chloride Carbon Dioxide Anion Gap BUN Creatinine Estim Creat Clear Calc Estimated GFR Glucose POC Capillary Glucose 109 H 120 H 144 H Calcium Phosphorus Magnesium
[2025-03-05] MEDS: INSULIN ASPART (*BKC) 100 UNITS/ML SUB-Q (21:31)
[2025-03-05] MEDS: INSULIN GLARGINE (*BKC) 100 UNITS/ML 20 UNITS SUB-Q (21:33)
[2025-03-05] MEDS: WATER FOR IRRIGATION, STERILE 1,000 ML BOTTLE 1000 ML (23:11)
[2025-03-06] VITALS (24 sets, daily range): BP systolic 130–201; BP diastolic 45–81; PULSE 47–64; RESP 16–20; TEMP 36.6–37; O2SAT 94–99
[2025-03-06 05:18] LABS: Hematocrit 30.6 % (37.0-47.0); Hemoglobin 9.9 g/dL (12.0-15.0); Immature Granulocyte Percent A 0.4 % (0-0.5); Lymphocytes Absolute Auto 2.16 K/mm3 (0.9-3.2); Mean Corpuscular HGB Conc 32.4 g/dl (32-36); Mean Corpuscular Hemoglobin 32.9 pg (26-34); Mean Corpuscular Volume 101.7 fl (80-100); Nucleated Red Blood Cells Absolute Auto 0.000 K/mm3 (0.0-0.012); Nucleated Red Blood Cells Perc 0.0 % (0.0-0.2); Platelet Count Result 251 k/mm3 (150-375); Red Blood Count 3.01 M/mm3 (4.2-5.4); White Blood Count 8.0 K/mm3 (4.5-10.0)
[2025-03-06 05:33] LABS: Alanine Aminotransferase 18 U/L (6-35); Albumin Level 3.1 g/dL (3.5-5.1); Alkaline Phosphatase 53 U/L (38-126); Anion Gap 7 mmol/L (4-12); Aspartate Amino Transferase 24 U/L (14-36); Bilirubin,Total 0.3 mg/dL (0.2-1.3); Blood Urea Nitrogen 47 mg/dL (7-17); Calcium 8.5 mg/dL (8.4-10.2); Carbon Dioxide 21 mmol/L (22-30); Chloride 109 mmol/L (98-107); Estimated CRCL calculation 18 ml/min; Estimated Glomerular Filt Rate 15; Glucose 89 mg/dL (65-110); Magnesium 2.0 mg/dL (1.6-2.3); Potassium 3.9 mmol/L (3.4-5.0); Sodium 137 mmol/L (137-145); Total Protein 5.9 g/dL (6.3-8.2)
[2025-03-06] MEDS: SODIUM BICARBONATE TAB 650 MG TABLET 1300 MG PO ×3 (08:27→16:56)
[2025-03-06] MEDS: ASCORBIC ACID 250 MG TABLET PO (08:27)
[2025-03-06] MEDS: CHOLECALCIFEROL (VITAMIN D3) 25 MCG (1,000 UNITS) TABLET 50 MCG PO (08:28)
[2025-03-06] MEDS: FERROUS SULFATE 325 MG TABLET DR BY MOUTH (08:28)
[2025-03-06] MEDS: FUROSEMIDE INJ 100 MG/10 ML VIAL 80 MG IV PUSH ×2 (08:28→16:56)
[2025-03-06] MEDS: IRBESARTAN 150 MG TABLET 300 MG PO (08:29)
[2025-03-06] MEDS: PRAVASTATIN SODIUM 10 MG TABLET BY MOUTH (08:35)
--- NOTE | 2025-03-06 09:07 | P.PNNP_ITS ---
Progress Note: A&P Assessment and Plan (1) Acute kidney injury superimposed on CKD: Code(s): N17.9 - Acute kidney failure, unspecified; N18.9 - Chronic kidney disease, unspecified Status: Acute Assessment and Plan: The patient has chronic kidney disease. This is due to diabetes and hypertension. The patient has acute on chronic kidney disease. This could be progression of her kidney disease, or this could be because of the very high blood pressure versus some intrinsic disease other than diabetes or hypertension. The patient does have blood in the urine as well as severe proteinuria, more than usually happens with diabetes, but not completely out of the realm. The patient has no symptoms of uremia. We do not need to do dialysis at this point. We discussed kidney biopsy last office visit, however with the of her this did not happen. kidney biopsy has been scheduled for Friday. The patient is off the aspirin Dr. Bauman is wondering if the patient can go home. If the blood pressure is more stable by tomorrow and if we can guarantee that the biopsy is going to be done Friday or then this would be okay. The patient should check her blood pressure twice a day at home to be sure that it is under control for the biopsy. She can call me for instructions if the blood pressure is higher than 160. (2) Hypertensive urgency: Code(s): I16.0 - Hypertensive urgency Status: Acute Assessment and Plan: The patient's blood pressure was very high on admission. She was not taking her blood pressure at home so it is not clear how long this had been going on. She is currently on Nifedipine 60, hydralazine 50 t.i.d., irbesartan 300, and nebivolol 20. will increase hydralazine to 75 three times a day. I would like to see the blood pressure a little more stable before discharge. Her blood pressure was 201 last night and she received dose of intravenous hydralazine so it is not under adequate control for discharge yet. (3) Acute on chronic diastolic congestive heart failure: Code(s): I50.33 - Acute on chronic diastolic (congestive) heart failure Status: Acute Assessment and Plan: EF was still good last check. Patient also has diastolic dysfunction and pulmonary hypertension. Patient probably has some sodium retention due to her renal function as well On furosemide to 80 b.i.d. 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 Subjective Date/time seen: 03/06/25 09:07 Interval history: patient is alert. Feeling okay sitting up in a chair. Eating a good breakfast Exam Narrative: WDWN in NAD skin no rash or subcu not head ncat lungs clear bilateral cor reg no rub abd BS+ nontender and soft ext trace to 1+ bilateral edema, slightly worse on the right (chronically). Objective Data Vital Signs Vital Signs: Vital Signs - 24 hr 03/05/25 10:00 03/05/25 12:00 03/05/25 12:12 Temperature 98.3 F Pulse Rate 54 L 51 L 51 L Respiratory Rate 20 Blood Pressure 182/53 H Pulse Oximetry 98 Oxygen Delivery 03/05/25 14:00 03/05/25 15:05 03/05/25 16:00 Temperature Pulse Rate 52 L 46 L 47 L Respiratory Rate Blood Pressure 123/39 L Pulse Oximetry Oxygen Delivery 03/05/25 16:29 03/05/25 19:50 03/05/25 20:00 Temperature 97.5 F L 97.8 F Pulse Rate 48 L 53 L 59 L Respiratory Rate 20 20 Blood Pressure 132/35 L 158/51 H Pulse Oximetry 96 96 Oxygen Delivery 03/05/25 22:00 03/05/25 23:30 03/06/25 00:00 Temperature 97.8 F Pulse Rate 50 L 48 L 50 L Respiratory Rate 18 20 Blood Pressure 171/45 H Pulse Oximetry 97 99 Oxygen Delivery BiPAP 03/06/25 00:00 03/06/25 02:00 03/06/25 02:14 Temperature Pulse Rate 52 L 49 L 49 L Respiratory Rate 16 Blood Pressure Pulse Oximetry 97 Oxygen Delivery BiPAP 03/06/25 04:00 03/06/25 04:00 03/06/25 06:00 Temperature 97.8 F Pulse Rate 50 L 55 L 49 L Respiratory Rate 20 Blood Pressure 201/59 H Pulse Oximetry 98 Oxygen Delivery 03/06/25 06:18 03/06/25 07:55 Temperature 98 F Pulse Rate 54 L Respiratory Rate 18 Blood Pressure 172/52 H 180/56 H Pulse Oximetry 97 Oxygen Delivery Intake/Output Intake/Output: Intake & Output 03/03/25 03/04/25 03/05/25 03/06/25 23:59 23:59 23:59 23:59 Intake Total 1380 960 480 Output Total 2551 2550 625 Balance -1171 -1590 -145 Meds/Results Medications: Active Medications Generic Name Dose Route Start Last Admin Trade Name Freq PRN Reason Stop Dose Admin Acetaminophen 650 mg 03/03/25 20:40 03/04/25 02:14 Acetaminophen 325 Mg Tablet PO 650 mg Q4H PRN Administration Mild Pain (1-3) or Fever Ascorbic Acid 250 mg 03/04/25 09:00 03/06/25 08:27 Ascorbic Acid 250 Mg Tablet PO 250 mg QAM SONJA Administration Dextrose 12.5 gm 03/03/25 20:40 Dextrose 50% 25 Gm/50 Ml Syringe IV PUSH PRN PRN Hypoglycemia Protocol Ferrous Sulfate 325 mg 03/04/25 09:00 03/06/25 08:28 Ferrous Sulfate [address] BY MOUTH 325 mg QAM SONJA Administration Furosemide 80 mg 03/04/25 17:00 03/06/25 08:28 Furosemide Inj 100 Mg/10 Ml Vial IV PUSH 80 mg BID SONJA Administration Glucagon 1 mg 03/03/25 20:40 Glucagon For Inj 1 Mg Vial IM PRN PRN Hypoglycemia Protocol Glucose 15 gm 03/03/25 20:40 Glucose Oral Gel 15 Gm Of Glucse In 37.5 Gm Tube PO PRN PRN Hypoglycemia Protocol Heparin Sodium (Porcine) 5,000 units 03/04/25 09:00 03/06/25 08:28 Heparin Sodium 5,000 Units/Ml Vial SUB-Q 5,000 units Q12HR SONJA Administration Hydralazine HCl 10 mg 03/05/25 05:12 03/06/25 04:42 Hydralazine Hcl 20 Mg/Ml Vial IV PUSH 10 mg Q6H PRN Administration Blood Pressure - High Hydralazine HCl 75 mg 03/06/25 08:00 03/06/25 08:35 Hydralazine Hcl 25 Mg Tablet BY MOUTH 75 mg TIDWM SONJA Administration Dextrose 1,000 mls @ 100 mls/hr 03/03/25 20:40 Dextrose 5% 1,000 Ml IVPB PRN PRN Hypoglycemia Protocol Insulin Aspart 3 - 6 units 03/04/25 08:00 03/06/25 08:29 Insulin Aspart (*Bkc) 100 Units/Ml SUB-Q Not Given TIDWM SONJA Protocol Insulin Aspart 1 - 3 units 03/04/25 21:00 03/05/25 21:31 Insulin Aspart (*Bkc) 100 Units/Ml SUB-Q 1 units HS SONJA Administration Protocol Insulin Glargine 20 units 03/05/25 21:00 03/05/25 21:33 Insulin Glargine (*Bkc) 100 Units/Ml SUB-Q 20 units HS SONJA Administration Irbesartan 300 mg 03/04/25 09:00 03/06/25 08:29 Irbesartan 150 Mg Tablet PO 300 mg DAILY SONJA Administration Nebivolol 20 mg 03/04/25 09:00 03/05/25 08:51 Nebivolol Hcl 5 Mg Tablet PO 20 mg DAILY SONJA Administration Nifedipine 60 mg 03/05/25 09:00 03/06/25 08:29 Nifedipine 30 Mg Tab.Er.24 PO 60 mg QAM SONJA Administration Perflutren Lipid Microsphere 0 ml 03/03/25 20:40 Perflutren Lipid Microspheres 1.5 Ml Vial Diluted To 10 Ml Total Volume IV PUSH 03/06/25 20:41 ONCE PRN adequate visualization Protocol Pravastatin Sodium 10 mg 03/04/25 09:00 03/06/25 08:35 Pravastatin Sodium 10 Mg Tablet BY MOUTH 10 mg DAILY SONJA Administration Sodium Bicarbonate 1,300 mg 03/05/25 12:00 03/06/25 08:27 Sodium Bicarbonate Tab 650 Mg Tablet PO 1,300 mg TIDWM SONJA Administration Vitamin D 50 mcg 03/04/25 09:00 03/06/25 08:28 Cholecalciferol (Vitamin D3) 25 Mcg (1,000 Units) Tablet PO 50 mcg QAM SONJA Administration Radiology Results: ITS Impressions Chest X-Ray 03/03/25 17:45 IMPRESSION: Moderate pulmonary vascular congestion with bilateral pleural effusions, right greater than left. Venous Doppler Study 03/03/25 18:57 IMPRESSION: 1. No deep venous thrombosis. Renal Ultrasound 03/04/25 15:07 IMPRESSION: Left renal cysts. Otherwise, Normal study. Arterial/Peripheral Duplex 03/05/25 12:49 IMPRESSION: 1. No Doppler evidence of renal artery stenosis. Labs Labs: Laboratory Results - last 24 hr 03/05/25 03/05/25 03/05/25 11:53 16:01 19:58 WBC RBC Hgb Hct MCV MCH MCHC RDW Plt Count MPV Immature Gran % (Auto) Neut % (Auto) Lymph % (Auto) [place] % (Auto) Eos % (Auto) Baso % (Auto) Lymph # (Auto) [place] # (Auto) Eos # (Auto) Baso # (Auto) Abs Immat Gran (auto) Absolute Neuts (auto) Absolute Nucleated RBC Nucleated RBC % Sodium Potassium Chloride Carbon Dioxide Anion Gap BUN Creatinine Estim Creat Clear Calc Estimated GFR Glucose POC Capillary Glucose 120 H 144 H 211 H Calcium Phosphorus Magnesium Total Bilirubin AST ALT Alkaline Phosphatase Total Protein Albumin 03/06/25 03/06/25 04:40 07:58 WBC 8.0 RBC 3.01 L Hgb 9.9 L Hct 30.6 L MCV 101.7 H MCH 32.9 MCHC 32.4 RDW 13.1 Plt Count 251 MPV 11.8 H Immature Gran % (Auto) 0.4 Neut % (Auto) 59.2 Lymph % (Auto) 27.0 [place] % (Auto) 8.4 Eos % (Auto) 4.1 Baso % (Auto) 0.9 Lymph # (Auto) 2.16 [place] # (Auto) 0.7 H Eos # (Auto) 0.3 Baso # (Auto) 0.1 Abs Immat Gran (auto) 0.03 Absolute Neuts (auto) 4.8 Absolute Nucleated RBC 0.000 Nucleated RBC % 0.0 Sodium 137 Potassium 3.9 Chloride 109 H Carbon Dioxide 21 L Anion Gap 7 BUN 47 H Creatinine 3.11 H Estim Creat Clear Calc 18 Estimated GFR 15 L Glucose 89 POC Capillary Glucose 152 H Calcium 8.5 Phosphorus 5.6 H Magnesium 2.0 Total Bilirubin 0.3 AST 24 ALT 18 Alkaline Phosphatase 53 Total Protein 5.9 L Albumin 3.1 L
[2025-03-06] MEDS: NEBIVOLOL HCL 5 MG TABLET 20 MG PO (09:33)
--- NOTE | 2025-03-06 09:38 | PM.CNCAR ---
Assessment and Plan Assessment and plan (1) Elevated troponin: Code(s): R79.89 - Other specified abnormal findings of blood chemistry Status: Acute (2) Hyperlipidemia: Code(s): E78.5 - Hyperlipidemia, unspecified Status: Acute (3) Hypertension: Qualifiers: Hypertension type: essential hypertension Qualified Code(s): I10 - Essential (primary) hypertension Code(s): I10 - Essential (primary) hypertension Status: Acute Plan 69-year-old woman with insulin-dependent type 2 diabetes and hypertension was found to have abnormal labs and elevated blood pressure in outpatient setting prompting admission for further evaluation Troponin elevation -likely secondary to significantly elevated blood pressure as well as renal injury -I have discussed with her that her symptoms most likely is secondary to renal injury and at this time would avoid cardiac workup especially in light of echocardiogram revealing normal biventricular systolic function -she can follow-up in clinic where once her renal function normalizes, we can discuss ischemic evaluation if she continues to have exertional limitations Hypertension -defer to Nephrology in light of her renal injury Hyperlipidemia -continue pravastatin 10 mg every evening for now -with discussed in outpatient setting the utility of high-intensity statin in reducing cardiovascular disease History of Present Illness History of Present Illness Consult date/time: 03/06/25 09:38 Requesting physician: Ck Lugo MD Reason For Visit: Acute CHF/Elevated Troponin/CKD/HTN Narrative: 69-year-old woman with insulin-dependent type 2 diabetes and hypertension was found to have abnormal labs and elevated blood pressure in outpatient setting prompting admission for further evaluation. Her last month, she has been experiencing exertional shortness of breath where she is unable to ambulate from her car in the parking lot to the grocery store without having to stop secondary to shortness of breath. She has been having lower extremity swelling in association with her dyspnea. No significant orthopnea or syncopal events. No chest discomfort. Her recently in his sleep prompting concerns of cardiac conditions. Previously followed with Dr. Horta however would like to switch care at this time. Review of Systems Cardiovascular: Cardiovascular: Reports as per HPI Respiratory: Respiratory: Reports as per HPI [facility] Past Medical History Medical History Recurrent UTI Osteoarthritis of left knee Obstructive sleep apnea on CPAP Hyperlipidemia Insulin dependent type 2 diabetes mellitus Diastolic dysfunction Echo in February 2021 showed normal LV systolic function with an EF of 70 75% incident normal diastolic dysfunction grade 2. Closed intertrochanteric fracture of right hip (08/2022) Chronic kidney disease, stage 3b Hypertension Surgical History Surgical History History of hip surgery Right 08/2022 History of tubal ligation History of open reduction and internal fixation (ORIF) procedure Repair of right ankle fracture. History of cataract extraction (08/2015) History of open reduction and internal fixation (ORIF) procedure (09/05/22) Right hip trochanteric nail with hip screw. History of section (01/20/85) History of section (03/18/88) History of hysterectomy (08/1998) Family History Family History Father Diabetes mellitus Heart disease Acute myocardial infarction Mother , 04/28/2000 Breast cancer Alzheimer's dementia Grandparent Cerebrovascular accident maternal grandfather Acute myocardial infarction Social History Social History Social History: Surrogate medical decision maker: Lynn Barrera and Abhi Christian, children. Code status: Full code. Smoking status: Never smoker Second hand tobacco smoke exposure: Yes Alcohol intake: never Alcohol use details: 1 glass of wine a month. Substance use: never Substance use type: does not use Do You Feel Safe in your Home?: Yes Lack of Transportation: No Lack of Food: Never True Current Housing: I Have Housing Concerned About Future Housing: No Difficulty Paying Gas/Electric Bills: No Difficulty Paying for Meds: No Currently Unemployed: No Education: High School Diploma/GED Difficulty w/ Childcare or Family Care: No Living arrangements: with family Additional living arrangements comments: as of February 2025. She 2 adult children, a son who is local and daughter who lives in [place]. Occupation/Education: retired Additional occupation/education comments: Retired from [employer] work. Spiritual care concerns: No Meds Home Medications and Allergies Home Medications ?Medication ?Instructions ?Recorded ?Confirmed ?Type ferrous sulfate 325 mg (65 mg 325 mg PO QAM 12/12/20 03/04/25 History iron) tablet ascorbic acid (vitamin C) 250 mg 250 mg PO QAM 01/30/23 03/04/25 History chewable tablet cholecalciferol (vitamin D3) 50 50 mcg PO QAM 02/17/23 03/04/25 History mcg (2,000 unit) capsule pen needle, diabetic 29 gauge x #400 ea 12/11/23 03/04/25 Rx 1/2 (BD Ultra-Fine Original Pen Needle) blood sugar diagnostic (OneTouch #50 ea 03/26/24 03/04/25 Rx Ultra Test strips) flash glucose scanning reader #1 ea 07/09/24 03/04/25 Rx (FreeStyle Caryn 2 [place]) pravastatin 10 mg tablet See Rx Instructions .Route 09/30/24 03/04/25 Rx .COMPLEX #90 tabs aspirin 81 mg tablet,delayed 81 mg PO DAILY 10/12/24 03/04/25 History release blood-glucose sensor (FreeStyle #2 ea 10/22/24 03/04/25 Rx Caryn 2 Plus Sensor device) insulin glargine 100 unit/mL (3 40 unit (0.4 mL) subcut QPM #15 mL 12/02/24 03/04/25 Rx mL) subcutaneous pen (Lantus Solostar U-100 Insulin) irbesartan 300 mg tablet 300 mg PO DAILY #90 tabs 12/02/24 03/04/25 Rx nitrofurantoin macrocrystal 50 mg 50 mg PO QHS #90 caps 12/02/24 03/04/25 Rx capsule nebivolol 20 mg tablet 20 mg PO DAILY #30 tabs 02/08/25 03/04/25 Rx sodium bicarbonate 650 mg tablet 650 mg PO BIDWMEAL #60 tabs 02/08/25 03/04/25 Rx bumetanide 1 mg tablet 1 mg PO BID #60 tabs 03/02/25 03/04/25 Rx hydralazine 50 mg tablet See Rx Instructions .Route 03/02/25 03/04/25 Rx .COMPLEX #90 tabs insulin aspart U-100 100 unit/mL 13 unit (0.13 mL) subcut TID #15 mL 03/02/25 03/04/25 Rx (3 mL) subcutaneous pen Allergies Allergy/AdvReac Type Severity Reaction Status Date / Time No Known Allergies Allergy Verified 03/03/25 11:05 Vital Signs Vital Signs - 24 hr 03/05/25 10:00 03/05/25 12:00 03/05/25 12:12 Temperature 36.8 C Pulse Rate 54 L 51 L 51 L Respiratory Rate 20 Blood Pressure 182/53 H Pulse Oximetry 98 Oxygen Delivery 03/05/25 14:00 03/05/25 15:05 03/05/25 16:00 Temperature Pulse Rate 52 L 46 L 47 L Respiratory Rate Blood Pressure 123/39 L Pulse Oximetry Oxygen Delivery 03/05/25 16:29 03/05/25 19:50 03/05/25 20:00 Temperature 36.4 C L 36.6 C Pulse Rate 48 L 53 L 59 L Respiratory Rate 20 20 Blood Pressure 132/35 L 158/51 H Pulse Oximetry 96 96 Oxygen Delivery 03/05/25 22:00 03/05/25 23:30 03/06/25 00:00 Temperature 36.6 C Pulse Rate 50 L 48 L 50 L Respiratory Rate 18 20 Blood Pressure 171/45 H Pulse Oximetry 97 99 Oxygen Delivery BiPAP 03/06/25 00:00 03/06/25 02:00 03/06/25 02:14 Temperature Pulse Rate 52 L 49 L 49 L Respiratory Rate 16 Blood Pressure Pulse Oximetry 97 Oxygen Delivery BiPAP 03/06/25 04:00 03/06/25 04:00 03/06/25 06:00 Temperature 36.6 C Pulse Rate 50 L 55 L 49 L Respiratory Rate 20 Blood Pressure 201/59 H Pulse Oximetry 98 Oxygen Delivery 03/06/25 06:18 03/06/25 07:55 03/06/25 09:33 Temperature 36.6 C Pulse Rate 54 L 52 L Respiratory Rate 18 Blood Pressure 172/52 H 180/56 H Pulse Oximetry 97 Oxygen Delivery Exam Const: General: comfortable HENMT: Mouth: Yes moist mucous membranes Eyes: EOM: EOMs intact bilaterally Neck: Neck: no JVD Resp: Effort & Inspection: normal respiratory effort Auscultation: clear to auscultation bilaterally Cardio: Rate: regular rate Rhythm: regular rhythm Neuro: Speech: normal speech Extrem: General: edema and pedal edema Results Labs and Meds 03/06/25 04:40 03/06/25 04:40 Lab results: Cardiac Enzymes 03/06/25 Range/Units 04:40 AST 24 (14-36) U/L CBC 06/29/25 Range/Units 04:40 WBC 8.0 (4.5-10.0) K/mm3 RBC 3.01 L (4.2-5.4) M/mm3 Hgb 9.9 L (12.0-15.0) g/dL Hct 30.6 L (37.0-47.0) % Plt Count 251 (150-375) k/mm3 Lymph # (Auto) 2.16 (0.9-3.2) K/mm3 [place] # (Auto) 0.7 H (0.1-0.6) K/mm3 Eos # (Auto) 0.3 (0-0.3) K/mm3 Baso # (Auto) 0.1 (0.0-0.1) K/mm3 Comprehensive Metabolic Panel 03/06/25 Range/Units 04:40 Sodium 137 (137-145) mmol/L Potassium 3.9 (3.4-5.0) mmol/L Chloride 109 H (98-107) mmol/L Carbon Dioxide 21 L (22-30) mmol/L BUN 47 H (7-17) mg/dL Creatinine 3.11 H (0.7-1.0) mg/dL Glucose 89 (65-110) mg/dL Calcium 8.5 (8.4-10.2) mg/dL AST 24 (14-36) U/L ALT 18 (6-35) U/L Alkaline Phosphatase 53 (38-126) U/L Total Protein 5.9 L (6.3-8.2) g/dL Albumin 3.1 L (3.5-5.1) g/dL Intake and Output 03/05/25 03/06/25 03/06/25 23:59 07:59 15:59 Intake Total 240 240 240 Output Total 900 525 100 Balance -660 -285 140 Intake: Oral 240 240 240 Output: Urine 900 525 100 Patient Weight 03/06/25 23:59 Weight 108.9 kg
--- NOTE | 2025-03-06 14:26 | PM.IMPN ---
Progress Note: A&P Assessment and Plan (1) Acute on chronic diastolic congestive heart failure: Code(s): I50.33 - Acute on chronic diastolic (congestive) heart failure Status: Acute (2) Acute on chronic kidney failure: Code(s): N17.9 - Acute kidney failure, unspecified; N18.9 - Chronic kidney disease, unspecified Status: Acute (3) Elevated troponin: Code(s): R79.89 - Other specified abnormal findings of blood chemistry Status: Acute (4) Hypertensive urgency: Code(s): I16.0 - Hypertensive urgency Status: Acute (5) Insulin dependent type 2 diabetes mellitus: Code(s): E11.9 - Type 2 diabetes mellitus without complications; Z79.4 - ocean transportation intermediary (current) use of insulin Status: Acute (6) Obstructive sleep apnea on CPAP: Code(s): G47.33 - Obstructive sleep apnea (adult) (pediatric); Z99.89 - Dependence on other enabling machines and devices Status: Acute Plan This is a very pleasant 69-year-old female with insulin-dependent type 2 diabetes mellitus, hypertension, diastolic dysfunction chronic kidney disease, obstructive sleep apnea, gastroesophageal reflux disease, depression, and anxiety who presented to the emergency department via private vehicle for evaluation of abnormal labs and elevated blood pressures. She gives at least a month long history of increasing bilateral lower extremity edema and progressive dyspnea on exertion and has seen her hand glass cutter, Dr. Horta, and feeder operator, Dr. Cruz recently and had some medication changes due to uncontrolled blood pressures and worsening renal function (amlodipine discontinued, nebivolol increased, max dose irbesartan, and hydralazine t.i.d.). Today she had a follow-up appointment with her primary care provider and was referred to the emergency department for evaluation due to continued high blood pressures (systolics over 200) and increasing creatinine. She does not really have any complaints aside from those as listed above. With further questioning she admits that her appetite has been poor the last couple of after the unexpected of her from an HI. She denies fever, cold and flu symptoms, chest pain, orthopnea, calf pain, cough, nausea, vomiting, diarrhea, and dysuria. In the ED: Blood pressure was 228/57 on arrival. The remainder of her vital signs were stable. Labs were significant for a WBC count of 10.1, hemoglobin 10.8, MCV 102.1, chloride 117, carbon dioxide 20, anion gap 7, BUN 36, creatinine 3.03, troponin 0.043, proBNP 6880, albumin 3.5. EKG showed sinus bradycardia with nonspecific ST and T-wave abnormalities in the high lateral leads and delayed precordial R/S transition. Lower extremity venous Doppler ultrasounds were negative for DVT. Chest x-ray showed moderate pulmonary vascular congestion with bilateral pleural effusions, right greater than left. She received furosemide 40 mg IV, hydralazine 10 mg IV, and 1 in nitroglycerin paste. She is being admitted in this setting for further treatment of poorly controlled hypertension, volume overload, and worsening kidney function accelerated hypertension currently on amlodipine 10 mg every below 20 mg irbesartan 300 mg hydralazine 50 3 times a day. And Lasix 80 b.i.d. Primarily systolic hypertension. iv hydralazine prn. Amlodipine switch to nifedipine has not much response from amlodipine. Much improved response with the nifedipine. Her blood pressure 10 to get elevated at night. Will switch hydralazine 2 q.8 hours instead of t.i.d. and see if this will control her blood pressure better. Overall blood pressure has improved significantly as compared to her admission readings. Renal duplex negative for renal artery stenosis. recent stresor with loss of ryanne on ckd stage neprology on board. Creatinine to 3. Creatinine down to 0.7 today.? Baseline creatinine around mid 1s to low 2s the past. Urine protein elevated more than 18. Plan for renal biopsy aspirin on hold which will be tentatively planned for Friday. chf acute on chronic diastolic. iv diuresis as tolerated BNP elevated at 6880. Venous duplex negative for DVT. Chest x-ray with moderate pulmonary vascular congestion with bilateral pleural effusion right greater than left. Echo 02/2024 with EF 60-65% mild pulmonary hypertension mild MR mild TR abnormal diastolic function repeat echo with EF 60-65% moderate concentric left ventricular wall thickness diastolic dysfunction abnormal mild pulmonary hypertension [id number] mitral regurgitation elevated troponin Mild flat JAMES on cpap non compliant with cpap. Advised to use CPAP type 2 dm: basal insulin, ssi. GERD Anxiety depression DVT prophylaxis heparin subQ Subjective Date/time seen: 03/06/25 14:26 Interval history: Overnight her blood pressure went up to 200 systolic receiving IV hydralazine p.r.n.. She overall feels better shortness of breath has improved leg swelling has improved. Review of Systems Review of Systems: All systems reviewed & are unremarkable except as noted in HPI and below Exam Narrative: General: Nontoxic-appearing female sitting up in bed in no acute distress. HEENT: PERRL, EOMI. Sclera anicteric. Moist mucous membranes. Oropharynx is clear. Neck: Supple. No obvious JVD. Respiratory: Respirations are nonlabored and she is speaking in full sentences. Lung sounds are a bit diminished at the bases with faint crackles on the right. Cardiovascular: Regular rate and rhythm with S1-S2. Soft systolic murmur at the left sternal border. Gastrointestinal: Abdomen is soft, nontender, and nondistended with positive bowel sounds. Skin: Warm and dry. Extremities: No cyanosis or clubbing. Tight, 3+ pitting edema of the lower legs up to the knees. No palpable knots or cords. Negative Steven sign bilaterally. Peripheral pulses intact. Neurological: Alert. Cranial nerves grossly intact. No gross focal deficits to casual conversation. Psychiatric: Pleasant and cooperative with normal mood and affect. Judgment and insight intact. Objective Data Vital Signs Vital Signs: Vital Signs - 24 hr 03/05/25 15:05 03/05/25 16:00 03/05/25 16:29 Temperature 97.5 F L Pulse Rate 46 L 47 L 48 L Respiratory Rate 20 Blood Pressure 123/39 L 132/35 L Pulse Oximetry 96 Oxygen Delivery 03/05/25 19:50 03/05/25 20:00 03/05/25 22:00 Temperature 97.8 F Pulse Rate 53 L 59 L 50 L Respiratory Rate 20 Blood Pressure 158/51 H Pulse Oximetry 96 Oxygen Delivery 03/05/25 23:30 03/06/25 00:00 03/06/25 00:00 Temperature 97.8 F Pulse Rate 48 L 50 L 52 L Respiratory Rate 18 20 Blood Pressure 171/45 H Pulse Oximetry 97 99 Oxygen Delivery BiPAP 03/06/25 02:00 03/06/25 02:14 03/06/25 04:00 Temperature 97.8 F Pulse Rate 49 L 49 L 50 L Respiratory Rate 16 20 Blood Pressure 201/59 H Pulse Oximetry 97 98 Oxygen Delivery BiPAP 03/06/25 04:00 03/06/25 06:00 03/06/25 06:18 Temperature Pulse Rate 55 L 49 L Respiratory Rate Blood Pressure 172/52 H Pulse Oximetry Oxygen Delivery 03/06/25 07:55 03/06/25 08:00 03/06/25 09:33 Temperature 98 F Pulse Rate 54 L 57 L 52 L Respiratory Rate 18 Blood Pressure 180/56 H Pulse Oximetry 97 Oxygen Delivery 03/06/25 10:00 03/06/25 11:07 03/06/25 11:42 Temperature 98 F Pulse Rate 47 L 51 L Respiratory Rate 18 Blood Pressure 166/49 H Pulse Oximetry 98 Oxygen Delivery 03/06/25 11:44 03/06/25 12:00 03/06/25 13:00 Temperature Pulse Rate 49 L Respiratory Rate Blood Pressure 155/65 H 152/51 H Pulse Oximetry Oxygen Delivery 03/06/25 13:08 Temperature Pulse Rate Respiratory Rate Blood Pressure 145/56 H Pulse Oximetry Oxygen Delivery Intake/Output Intake/Output: Intake & Output 03/03/25 03/04/25 03/05/25 03/06/25 23:59 23:59 23:59 23:59 Intake Total 1380 960 720 Output Total 2551 2550 625 Balance -1171 -1590 95 Meds/Results Medications: Active Medications Generic Name Dose Route Start Last Admin Trade Name Freq PRN Reason Stop Dose Admin Acetaminophen 650 mg 03/03/25 20:40 03/04/25 02:14 Acetaminophen 325 Mg Tablet PO 650 mg Q4H PRN Administration Mild Pain (1-3) or Fever Ascorbic Acid 250 mg 03/04/25 09:00 03/06/25 08:27 Ascorbic Acid 250 Mg Tablet PO 250 mg QAM SONJA Administration Dextrose 12.5 gm 03/03/25 20:40 Dextrose 50% 25 Gm/50 Ml Syringe IV PUSH PRN PRN Hypoglycemia Protocol Ferrous Sulfate 325 mg 03/04/25 09:00 03/06/25 08:28 Ferrous Sulfate [address] BY MOUTH 325 mg QAM SONJA Administration Furosemide 80 mg 03/04/25 17:00 03/06/25 08:28 Furosemide Inj 100 Mg/10 Ml Vial IV PUSH 80 mg BID SONJA Administration Glucagon 1 mg 03/03/25 20:40 Glucagon For Inj 1 Mg Vial IM PRN PRN Hypoglycemia Protocol Glucose 15 gm 03/03/25 20:40 Glucose Oral Gel 15 Gm Of Glucse In 37.5 Gm Tube PO PRN PRN Hypoglycemia Protocol Heparin Sodium (Porcine) 5,000 units 03/04/25 09:00 03/06/25 08:28 Heparin Sodium 5,000 Units/Ml Vial SUB-Q 5,000 units Q12HR SONJA Administration Hydralazine HCl 10 mg 03/05/25 05:12 03/06/25 04:42 Hydralazine Hcl 20 Mg/Ml Vial IV PUSH 10 mg Q6H PRN Administration Blood Pressure - High Hydralazine HCl 75 mg 03/06/25 14:00 03/06/25 14:21 Hydralazine Hcl 25 Mg Tablet BY MOUTH 75 mg Q8HR SONJA Administration Hydroxyzine Pamoate 25 mg 03/06/25 11:18 03/06/25 11:57 Hydroxyzine Pamoate 25 Mg Capsule PO 25 mg Q4H PRN Administration Itching Dextrose 1,000 mls @ 100 mls/hr 03/03/25 20:40 Dextrose 5% 1,000 Ml IVPB PRN PRN Hypoglycemia Protocol Insulin Aspart 3 - 6 units 03/04/25 08:00 03/06/25 11:57 Insulin Aspart (*Bkc) 100 Units/Ml SUB-Q Not Given TIDWM SONJA Protocol Insulin Aspart 1 - 3 units 03/04/25 21:00 03/05/25 21:31 Insulin Aspart (*Bkc) 100 Units/Ml SUB-Q 1 units HS SONJA Administration Protocol Insulin Glargine 20 units 03/05/25 21:00 03/05/25 21:33 Insulin Glargine (*Bkc) 100 Units/Ml SUB-Q 20 units HS SONJA Administration Irbesartan 300 mg 03/04/25 09:00 03/06/25 08:29 Irbesartan 150 Mg Tablet PO 300 mg DAILY SONJA Administration Nebivolol 20 mg 03/04/25 09:00 03/06/25 09:33 Nebivolol Hcl 5 Mg Tablet PO 20 mg DAILY SONJA Administration Nifedipine 60 mg 03/05/25 09:00 03/06/25 08:29 Nifedipine 30 Mg Tab.Er.24 PO 60 mg QAM SONJA Administration Perflutren Lipid Microsphere 0 ml 03/03/25 20:40 Perflutren Lipid Microspheres 1.5 Ml Vial Diluted To 10 Ml Total Volume IV PUSH 03/06/25 20:41 ONCE PRN adequate visualization Protocol Pravastatin Sodium 10 mg 03/04/25 09:00 03/06/25 08:35 Pravastatin Sodium 10 Mg Tablet BY MOUTH 10 mg DAILY SONJA Administration Sodium Bicarbonate 1,300 mg 03/05/25 12:00 03/06/25 11:57 Sodium Bicarbonate Tab 650 Mg Tablet PO 1,300 mg TIDWM SONJA Administration Vitamin D 50 mcg 03/04/25 09:00 03/06/25 08:28 Cholecalciferol (Vitamin D3) 25 Mcg (1,000 Units) Tablet PO 50 mcg QAM SONJA Administration Radiology Results: ITS Impressions Chest X-Ray 03/03/25 17:45 IMPRESSION: Moderate pulmonary vascular congestion with bilateral pleural effusions, right greater than left. Venous Doppler Study 03/03/25 18:57 IMPRESSION: 1. No deep venous thrombosis. Renal Ultrasound 03/04/25 15:07 IMPRESSION: Left renal cysts. Otherwise, Normal study. Arterial/Peripheral Duplex 03/05/25 12:49 IMPRESSION: 1. No Doppler evidence of renal artery stenosis. Labs Labs: Laboratory Results - last 24 hr 03/05/25 03/05/25 03/06/25 16:01 19:58 04:40 WBC 8.0 RBC 3.01 L Hgb 9.9 L Hct 30.6 L MCV 101.7 H MCH 32.9 MCHC 32.4 RDW 13.1 Plt Count 251 MPV 11.8 H Immature Gran % (Auto) 0.4 Neut % (Auto) 59.2 Lymph % (Auto) 27.0 [place] % (Auto) 8.4 Eos % (Auto) 4.1 Baso % (Auto) 0.9 Lymph # (Auto) 2.16 [place] # (Auto) 0.7 H Eos # (Auto) 0.3 Baso # (Auto) 0.1 Abs Immat Gran (auto) 0.03 Absolute Neuts (auto) 4.8 Absolute Nucleated RBC 0.000 Nucleated RBC % 0.0 Sodium 137 Potassium 3.9 Chloride 109 H Carbon Dioxide 21 L Anion Gap 7 BUN 47 H Creatinine 3.11 H Estim Creat Clear Calc 18 Estimated GFR 15 L Glucose 89 POC Capillary Glucose 144 H 211 H Calcium 8.5 Phosphorus 5.6 H Magnesium 2.0 Total Bilirubin 0.3 AST 24 ALT 18 Alkaline Phosphatase 53 Total Protein 5.9 L Albumin 3.1 L 03/06/25 03/06/25 07:58 11:04 WBC RBC Hgb Hct MCV MCH MCHC RDW Plt Count MPV Immature Gran % (Auto) Neut % (Auto) Lymph % (Auto) [place] % (Auto) Eos % (Auto) Baso % (Auto) Lymph # (Auto) [place] # (Auto) Eos # (Auto) Baso # (Auto) Abs Immat Gran (auto) Absolute Neuts (auto) Absolute Nucleated RBC Nucleated RBC % Sodium Potassium Chloride Carbon Dioxide Anion Gap BUN Creatinine Estim Creat Clear Calc Estimated GFR Glucose POC Capillary Glucose 152 H 157 H Calcium Phosphorus Magnesium Total Bilirubin AST ALT Alkaline Phosphatase Total Protein Albumin
[2025-03-06] MEDS: INSULIN GLARGINE (*BKC) 100 UNITS/ML 20 UNITS SUB-Q (21:21)
[2025-03-07] VITALS (15 sets, daily range): BP systolic 154–179; BP diastolic 44–87; PULSE 48–57; RESP 17–18; TEMP 36.4–36.6; O2SAT 96–100
[2025-03-07 04:20] LABS: Hematocrit 30.0 % (37.0-47.0); Hemoglobin 9.7 g/dL (12.0-15.0); Immature Granulocyte Percent A 0.5 % (0-0.5); Lymphocytes Absolute Auto 2.19 K/mm3 (0.9-3.2); Mean Corpuscular HGB Conc 32.3 g/dl (32-36); Mean Corpuscular Hemoglobin 33.2 pg (26-34); Mean Corpuscular Volume 102.7 fl (80-100); Nucleated Red Blood Cells Absolute Auto 0.000 K/mm3 (0.0-0.012); Nucleated Red Blood Cells Perc 0.0 % (0.0-0.2); Platelet Count Result 243 k/mm3 (150-375); Red Blood Count 2.92 M/mm3 (4.2-5.4); White Blood Count 8.4 K/mm3 (4.5-10.0)
[2025-03-07 04:34] LABS: Albumin Level 2.9 g/dL (3.5-5.1); Anion Gap 6 mmol/L (4-12); Blood Urea Nitrogen 48 mg/dL (7-17); Calcium 8.5 mg/dL (8.4-10.2); Carbon Dioxide 25 mmol/L (22-30); Chloride 107 mmol/L (98-107); Estimated CRCL calculation 17 ml/min; Estimated Glomerular Filt Rate 14; Glucose 117 mg/dL (65-110); Potassium 4.1 mmol/L (3.4-5.0); Sodium 138 mmol/L (137-145)
[2025-03-07 04:35] LABS: Alanine Aminotransferase 19 U/L (6-35); Albumin Level 2.9 g/dL (3.5-5.1); Alkaline Phosphatase 51 U/L (38-126); Anion Gap 6 mmol/L (4-12); Aspartate Amino Transferase 23 U/L (14-36); Bilirubin,Total 0.2 mg/dL (0.2-1.3); Blood Urea Nitrogen 49 mg/dL (7-17); Calcium 8.4 mg/dL (8.4-10.2); Carbon Dioxide 24 mmol/L (22-30); Chloride 108 mmol/L (98-107); Estimated CRCL calculation 18 ml/min; Estimated Glomerular Filt Rate 14; Glucose 116 mg/dL (65-110); Magnesium 2.0 mg/dL (1.6-2.3); Potassium 4.1 mmol/L (3.4-5.0); Sodium 138 mmol/L (137-145); Total Protein 5.7 g/dL (6.3-8.2)
[2025-03-07] MEDS: NEBIVOLOL HCL 5 MG TABLET 20 MG PO (08:10)
[2025-03-07] MEDS: FERROUS SULFATE 325 MG TABLET DR BY MOUTH (08:11)
[2025-03-07] MEDS: CHOLECALCIFEROL (VITAMIN D3) 25 MCG (1,000 UNITS) TABLET 50 MCG PO (08:11)
[2025-03-07] MEDS: PRAVASTATIN SODIUM 10 MG TABLET BY MOUTH (08:11)
[2025-03-07] MEDS: ASCORBIC ACID 250 MG TABLET PO (08:11)
[2025-03-07] MEDS: SODIUM BICARBONATE TAB 650 MG TABLET 1300 MG PO ×3 (08:11→16:36)
[2025-03-07] MEDS: FUROSEMIDE INJ 100 MG/10 ML VIAL 80 MG IV PUSH ×2 (08:11→16:36)
[2025-03-07] MEDS: IRBESARTAN 150 MG TABLET 300 MG PO (08:11)
--- NOTE | 2025-03-07 09:55 | P.PNIM_ITS ---
Progress Note: A&P Assessment and Plan (1) Acute on chronic diastolic congestive heart failure: Code(s): I50.33 - Acute on chronic diastolic (congestive) heart failure Status: Acute (2) Acute on chronic kidney failure: Code(s): N17.9 - Acute kidney failure, unspecified; N18.9 - Chronic kidney disease, unspecified Status: Acute (3) Elevated troponin: Code(s): R79.89 - Other specified abnormal findings of blood chemistry Status: Acute (4) Hypertensive urgency: Code(s): I16.0 - Hypertensive urgency Status: Acute (5) Insulin dependent type 2 diabetes mellitus: Code(s): E11.9 - Type 2 diabetes mellitus without complications; Z79.4 - termite exterminator (current) use of insulin Status: Acute (6) Obstructive sleep apnea on CPAP: Code(s): G47.33 - Obstructive sleep apnea (adult) (pediatric); Z99.89 - Dependence on other enabling machines and devices Status: Acute Plan This is a very pleasant 69-year-old female with insulin-dependent type 2 diabetes mellitus, hypertension, diastolic dysfunction chronic kidney disease, obstructive sleep apnea, gastroesophageal reflux disease, depression, and anxiety who presented to the emergency department via private vehicle for evaluation of abnormal labs and elevated blood pressures. She gives at least a month long history of increasing bilateral lower extremity edema and progressive dyspnea on exertion and has seen her topper press operator automatic, Dr. Horta, and public relations representative, Dr. Cruz recently and had some medication changes due to uncontrolled blood pressures and worsening renal function (amlodipine discontinued, nebivolol increased, max dose irbesartan, and hydralazine t.i.d.). Today she had a follow- up appointment with her primary care provider and was referred to the emergency department for evaluation due to continued high blood pressures (systolics over 200) and increasing creatinine. She does not really have any complaints aside from those as listed above. With further questioning she admits that her appetite has been poor the last couple of after the unexpected of her from an CT. She denies fever, cold and flu symptoms, chest pain, orthopnea, calf pain, cough, nausea, vomiting, diarrhea, and dysuria. In the ED: Blood pressure was 228/57 on arrival. The remainder of her vital signs were stable. Labs were significant for a WBC count of 10.1, hemoglobin 10.8, MCV 102.1, chloride 117, carbon dioxide 20, anion gap 7, BUN 36, creatinine 3.03, troponin 0.043, proBNP 6880, albumin 3.5. EKG showed sinus bradycardia with nonspecific ST and T-wave abnormalities in the high lateral leads and delayed precordial R/S transition. Lower extremity venous Doppler ultrasounds were negative for DVT. Chest x-ray showed moderate pulmonary vascular congestion with bilateral pleural effusions, right greater than left. She received furosemide 40 mg IV, hydralazine 10 mg IV, and 1 in nitroglycerin paste. She is being admitted in this setting for further treatment of poorly controlled hypertension, volume overload, and worsening kidney function accelerated hypertension currently on amlodipine 10 mg every below 20 mg irbesartan 300 mg hydralazine 50 3 times a day. And Lasix 80 b.i.d. Primarily systolic hypertension. iv hydralazine prn. Amlodipine switch to nifedipine has not much response from amlodipine. Much improved response with the nifedipine. Her blood pressure 10 to get elevated at night. Switched hydralazine to q.8 hours instead of t.i.d. and this helped. Not optimal however. Will switch to q.6 our. Overall blood pressure has improved significantly as compared to her admission readings. Renal duplex negative for renal artery stenosis. recent stressor with loss of on Vistaril p.r.n. ryanne on ckd stage neprology on board. Creatinine to 3. Creatinine down to 0.7 today.? Baseline creatinine around mid 1s to low 2s the past. Urine protein elevated more than 18. Plan for renal biopsy aspirin on hold which will be tentatively planned for Friday. chf acute on chronic diastolic. iv diuresis as tolerated BNP elevated at 6880. Venous duplex negative for DVT. Chest x-ray with moderate pulmonary vascular congestion with bilateral pleural effusion right greater than left. Echo 02/2024 with EF 60-65% mild pulmonary hypertension mild MR mild TR abnormal diastolic function repeat echo with EF 60-65% moderate concentric left ventricular wall thickness diastolic dysfunction abnormal mild pulmonary hyperte nsion [id number] mitral regurgitation elevated troponin Mild flat JAMES on cpap non compliant with cpap. Advised to use CPAP type 2 dm: basal insulin, ssi. GERD Anxiety depression DVT prophylaxis heparin subQ Subjective Date/time seen: 03/07/25 09:55 Interval history: No overnight events. Feeling better. Leg swelling has improved. Did receive IV p.r.n. hydralazine yesterday. Blood pressure trend reviewed. Review of Systems Review of Systems: All systems reviewed & are unremarkable except as noted in HPI and below Exam Narrative: General: Nontoxic-appearing female sitting up in bed in no acute distress. HEENT: PERRL, EOMI. Sclera anicteric. Moist mucous membranes. Oropharynx is clear. Neck: Supple. No obvious JVD. Respiratory: Respirations are nonlabored and she is speaking in full sentences. Lung sounds are a bit diminished at the bases with faint crackles on the right. Cardiovascular: Regular rate and rhythm with S1-S2. Soft systolic murmur at the left sternal border. Gastrointestinal: Abdomen is soft, nontender, and nondistended with positive bowel sounds. Skin: Warm and dry. Extremities: No cyanosis or clubbing. Tight, 3+ pitting edema of the lower legs up to the knees. No palpable knots or cords. Negative Steven sign bilaterally. Peripheral pulses intact. Neurological: Alert. Cranial nerves grossly intact. No gross focal deficits to casual conversation. Psychiatric: Pleasant and cooperative with normal mood and affect. Judgment and insight intact. Objective Data Vital Signs Vital Signs: Vital Signs - 24 hr 03/06/25 10:00 03/06/25 11:07 03/06/25 11:07 Temperature 98 F Pulse Rate 47 L 51 L Respiratory Rate 18 Blood Pressure 191/61 H Pulse Oximetry 98 Oxygen Delivery 03/06/25 11:42 03/06/25 11:44 03/06/25 12:00 Temperature Pulse Rate 49 L Respiratory Rate Blood Pressure 166/49 H 155/65 H Pulse Oximetry Oxygen Delivery 03/06/25 13:00 03/06/25 13:08 03/06/25 14:00 Temperature Pulse Rate 51 L Respiratory Rate Blood Pressure 152/51 H 145/56 H Pulse Oximetry Oxygen Delivery 03/06/25 16:00 03/06/25 16:00 03/06/25 18:00 Temperature 98 F Pulse Rate 53 L 64 49 L Respiratory Rate 18 Blood Pressure 160/49 H Pulse Oximetry 99 Oxygen Delivery 03/06/25 19:50 03/06/25 20:00 03/06/25 22:00 Temperature 98.6 F Pulse Rate 50 L 51 L 50 L Respiratory Rate 16 Blood Pressure 130/81 Pulse Oximetry 97 Oxygen Delivery 03/06/25 22:45 03/06/25 23:37 03/07/25 00:00 Temperature 97.8 F Pulse Rate 55 L 55 L 49 L Respiratory Rate 18 17 Blood Pressure 163/45 H Pulse Oximetry 97 94 Oxygen Delivery BiPAP 03/07/25 02:00 03/07/25 02:45 03/07/25 04:00 Temperature 97.7 F Pulse Rate 53 L 52 L Respiratory Rate 18 17 Blood Pressure 168/78 H Pulse Oximetry 98 Oxygen Delivery BiPAP 03/07/25 04:00 03/07/25 06:00 03/07/25 07:12 Temperature 98 F Pulse Rate 51 L 52 L 57 L Respiratory Rate 18 Blood Pressure 179/56 H Pulse Oximetry 98 Oxygen Delivery 03/07/25 08:00 03/07/25 08:00 03/07/25 08:10 Temperature Pulse Rate 52 L 52 L 52 L Respiratory Rate 18 Blood Pressure Pulse Oximetry 98 Oxygen Delivery Room Air Intake/Output Intake/Output: Intake & Output 03/04/25 03/05/25 03/06/25 03/07/25 23:59 23:59 23:59 23:59 Intake Total 1380 960 960 240 Output Total 2551 2550 1875 800 [facility] -[phone] Meds/Results Medications: Active Medications Generic Name Dose Route Start Last Admin Trade Name Freq PRN Reason Stop Dose Admin Acetaminophen 650 mg 03/03/25 20:40 03/04/25 02:14 Acetaminophen 325 Mg Tablet PO 650 mg Q4H PRN Administration Mild Pain (1-3) or Fever Ascorbic Acid 250 mg 03/04/25 09:00 03/07/25 08:11 Ascorbic Acid 250 Mg Tablet PO 250 mg QAM SONJA Administration Dextrose 12.5 gm 03/03/25 20:40 Dextrose 50% 25 Gm/50 Ml Syringe IV PUSH PRN PRN Hypoglycemia Protocol Ferrous Sulfate 325 mg 03/04/25 09:00 03/07/25 08:11 Ferrous Sulfate [address] BY MOUTH 325 mg QAM SONJA Administration Furosemide 80 mg 03/04/25 17:00 03/07/25 08:11 Furosemide Inj 100 Mg/10 Ml Vial IV PUSH 80 mg BID SONJA Administration Glucagon 1 mg 03/03/25 20:40 Glucagon For Inj 1 Mg Vial IM PRN PRN Hypoglycemia Protocol Glucose 15 gm 03/03/25 20:40 Glucose Oral Gel 15 Gm Of Glucse In 37.5 Gm Tube PO PRN PRN Hypoglycemia Protocol Heparin Sodium (Porcine) 5,000 units 03/04/25 09:00 03/07/25 08:11 Heparin Sodium 5,000 Units/Ml Vial SUB-Q 5,000 units Q12HR SONJA Administration Hydralazine HCl 10 mg 03/05/25 05:12 03/06/25 17:13 Hydralazine Hcl 20 Mg/Ml Vial IV PUSH 10 mg Q6H PRN Administration Blood Pressure - High Hydralazine HCl 75 mg 03/06/25 14:00 03/07/25 05:23 Hydralazine Hcl 25 Mg Tablet BY MOUTH 75 mg Q8HR SONJA Administration Hydroxyzine Pamoate 25 mg 03/06/25 11:18 03/06/25 16:56 Hydroxyzine Pamoate 25 Mg Capsule PO 25 mg Q4H PRN Administration Itching Dextrose 1,000 mls @ 100 mls/hr 03/03/25 20:40 Dextrose 5% 1,000 Ml IVPB PRN PRN Hypoglycemia Protocol Insulin Aspart 3 - 6 units 03/04/25 08:00 03/07/25 08:12 Insulin Aspart (*Bkc) 100 Units/Ml SUB-Q Not Given TIDWM [facility] Protocol Insulin Aspart 1 - 3 units 03/04/25 21:00 03/06/25 21:35 Insulin Aspart (*Bkc) 100 Units/Ml SUB-Q Not Given HS [facility] Protocol Insulin Glargine 20 units 03/05/25 21:00 03/06/25 21:21 Insulin Glargine (*Bkc) 100 Units/Ml SUB-Q 20 units HS SONJA Administration Irbesartan 300 mg 03/04/25 09:00 03/07/25 08:11 Irbesartan 150 Mg Tablet PO 300 mg DAILY SONJA Administration Nebivolol 20 mg 03/04/25 09:00 03/07/25 08:10 Nebivolol Hcl 5 Mg Tablet PO 20 mg DAILY SONJA Administration Nifedipine 60 mg 03/05/25 09:00 03/07/25 08:11 Nifedipine 30 Mg Tab.Er.24 PO 60 mg QAM SONJA Administration Pravastatin Sodium 10 mg 03/04/25 09:00 03/07/25 08:11 Pravastatin Sodium 10 Mg Tablet BY MOUTH 10 mg DAILY SONJA Administration Sodium Bicarbonate 1,300 mg 03/05/25 12:00 03/07/25 08:11 Sodium Bicarbonate Tab 650 Mg Tablet PO 1,300 mg TIDWM SONJA Administration Vitamin D 50 mcg 03/04/25 09:00 03/07/25 08:11 Cholecalciferol (Vitamin D3) 25 Mcg (1,000 Units) Tablet PO 50 mcg QAM SONJA Administration Radiology Results: ITS Impressions Chest X-Ray 03/03/25 17:45 IMPRESSION: Moderate pulmonary vascular congestion with bilateral pleural effusions, right greater than left. Venous Doppler Study 03/03/25 18:57 IMPRESSION: 1. No deep venous thrombosis. Renal Ultrasound 03/04/25 15:07 IMPRESSION: Left renal cysts. Otherwise, Normal study. Arterial/Peripheral Duplex 03/05/25 12:49 IMPRESSION: 1. No Doppler evidence of renal artery stenosis. Labs Labs: Laboratory Results - last 24 hr 03/06/25 03/06/25 03/07/25 11:04 20:35 01:10 WBC RBC Hgb Hct MCV MCH MCHC RDW Plt Count MPV Immature Gran % (Auto) Neut % (Auto) Lymph % (Auto) Churchill % (Auto) Eos % (Auto) Baso % (Auto) Lymph # (Auto) Churchill # (Auto) Eos # (Auto) Baso # (Auto) Abs Immat Gran (auto) Absolute Neuts (auto) Absolute Nucleated RBC Nucleated RBC % Sodium Potassium Chloride Carbon Dioxide Anion Gap BUN Creatinine Estim Creat Clear Calc Estimated GFR Glucose POC Capillary Glucose 157 H 157 H 79 Calcium Phosphorus Magnesium Total Bilirubin AST ALT Alkaline Phosphatase Total Protein Albumin 03/07/25 03/07/25 03/07/25 03:55 03:55 03:55 WBC 8.4 RBC 2.92 L Hgb 9.7 L Hct 30.0 L MCV 102.7 H MCH 33.2 MCHC 32.3 RDW 13.2 Plt Count 243 MPV 11.9 H Immature Gran % (Auto) 0.5 Neut % (Auto) 59.1 Lymph % (Auto) 26.1 Churchill % (Auto) 8.8 H Eos % (Auto) 4.5 H Baso % (Auto) 1.0 Lymph # (Auto) 2.19 Churchill # (Auto) 0.7 H Eos # (Auto) 0.4 H Baso # (Auto) 0.1 Abs Immat Gran (auto) 0.04 H Absolute Neuts (auto) 5.0 Absolute Nucleated RBC 0.000 Nucleated RBC % 0.0 Sodium 138 138 Potassium 4.1 4.1 Chloride 107 Carbon Dioxide Anion Gap BUN Creatinine Estim Creat Clear Calc Estimated GFR Glucose POC Capillary Glucose Calcium Phosphorus Magnesium Total Bilirubin AST ALT Alkaline Phosphatase Total Protein Albumin 03/07/25 03/07/25 03/07/25 03:55 03:55 03:55 WBC RBC Hgb Hct MCV MCH MCHC RDW Plt Count MPV Immature Gran % (Auto) Neut % (Auto) Lymph % (Auto) Churchill % (Auto) Eos % (Auto) Baso % (Auto) Lymph # (Auto) Churchill # (Auto) Eos # (Auto) Baso # (Auto) Abs Immat Gran (auto) Absolute Neuts (auto) Absolute Nucleated RBC Nucleated RBC % Sodium Potassium Chloride 108 H Carbon Dioxide 25 24 Anion Gap 6 6 BUN 48 H Creatinine Estim Creat Clear Calc Estimated GFR Glucose POC Capillary Glucose Calcium Phosphorus Magnesium Total Bilirubin AST ALT Alkaline Phosphatase Total Protein Albumin 03/07/25 03/07/25 03/07/25 03:55 03:55 03:55 WBC RBC Hgb Hct MCV MCH MCHC RDW Plt Count MPV Immature Gran % (Auto) Neut % (Auto) Lymph % (Auto) Churchill % (Auto) Eos % (Auto) Baso % (Auto) Lymph # (Auto) Churchill # (Auto) Eos # (Auto) Baso # (Auto) Abs Immat Gran (auto) Absolute Neuts (auto) Absolute Nucleated RBC Nucleated RBC % Sodium Potassium Chloride Carbon Dioxide Anion Gap BUN 49 H Creatinine 3.25 H 3.17 H Estim Creat Clear Calc 17 18 Estimated GFR 14 L Glucose POC Capillary Glucose Calcium Phosphorus Magnesium Total Bilirubin AST ALT Alkaline Phosphatase Total Protein Albumin 03/07/25 03/07/25 03/07/25 03:55 03:55 03:55 WBC RBC Hgb Hct MCV MCH MCHC RDW Plt Count MPV Immature Gran % (Auto) Neut % (Auto) Lymph % (Auto) Churchill % (Auto) Eos % (Auto) Baso % (Auto) Lymph # (Auto) Churchill # (Auto) Eos # (Auto) Baso # (Auto) Abs Immat Gran (auto) Absolute Neuts (auto) Absolute Nucleated RBC Nucleated RBC % Sodium Potassium Chloride Carbon Dioxide Anion Gap BUN Creatinine Estim Creat Clear Calc Estimated GFR 14 L Glucose 117 H 116 H POC Capillary Glucose Calcium 8.5 8.4 Phosphorus 5.4 H Magnesium 2.0 Total Bilirubin 0.2 AST 23 ALT 19 Alkaline Phosphatase 51 Total Protein 5.7 L Albumin 2.9 L 03/07/25 03/07/25 03:55 07:17 WBC RBC Hgb Hct MCV MCH MCHC RDW Plt Count MPV Immature Gran % (Auto) Neut % (Auto) Lymph % (Auto) Churchill % (Auto) Eos % (Auto) Baso % (Auto) Lymph # (Auto) Churchill # (Auto) Eos # (Auto) Baso # (Auto) Abs Immat Gran (auto) Absolute Neuts (auto) Absolute Nucleated RBC Nucleated RBC % Sodium Potassium Chloride Carbon Dioxide Anion Gap BUN Creatinine Estim Creat Clear Calc Estimated GFR Glucose POC Capillary Glucose 140 H Calcium Phosphorus Magnesium Total Bilirubin AST ALT Alkaline Phosphatase Total Protein Albumin 2.9 L
--- NOTE | 2025-03-07 10:13 | PC.NURSE ---
Spoke with Dr. Lugo regarding pt's repeat BP of 173/56. New order to change PRN Hydralazine order to parameters of SBP > 180. MD had also increased the frequency of the oral hydralazine order to q6hr
--- NOTE | 2025-03-07 10:45 | P.PNNP_ITS ---
Progress Note: A&P Assessment and Plan (1) Acute kidney injury: Code(s): N17.9 - Acute kidney failure, unspecified Status: Acute Assessment and Plan: * etiology not clear * element of kidney disease progression? * due to very high BP versus some intrinsic disease other than diabetes or hypertension * however, now complicated with worsening proteinuria and hematuria * tentatively on schedule for renal biopsy on Friday (03/09/25) * follow trend of repeat labs and UOP (2) Stage 4 chronic kidney disease: Code(s): N18.4 - Chronic kidney disease, stage 4 (severe) Status: Chronic Assessment and Plan: * baseline creatinine running ~ 2.0 - 2.5mg/dl for the last year or so * suspect secondary to diabetes and hypertension based on outpatient evaluation * however, with worsening proteinuria, tentative plan was for a renal biopsy for further assessement (but this was delayed due to her passing) (3) Hypertensive urgency: Code(s): I16.0 - Hypertensive urgency Status: Acute Assessment and Plan: * as noted on admission * was not taking her blood pressure at home so it is not clear how long this had been going on * on nifedipine, hydralazine, irbesartan, and nebivolol * titrate hydralazine * could also increase dose/frequency of nifedipine * follow trend of hemodynamics (4) Acute on chronic diastolic congestive heart failure: Code(s): I50.33 - Acute on chronic diastolic (congestive) heart failure Status: Acute Assessment and Plan: * likely due to diastolic dysfunction, pulmonary HTN and possibly proteinuria * worsening renal function likely contributing as well * recent Echo (03/04) noted: * left ventricular systolic function is normal, estimated at 60 - 65% * left ventricular diastolic function is abnormal * mild aortic valve sclerosis * mild to moderate mitral valve regurgitation * mild tricuspid valve regurgitation * mild pulmonary hypertension, estimated pulmonary arterial systolic pressure is 43 mmHg * trace pulmonic regurgitation * continue current diuretics (5) Obstructive sleep apnea on CPAP: Code(s): G47.33 - Obstructive sleep apnea (adult) (pediatric); Z99.89 - Dependence on other enabling machines and devices Status: Acute Assessment and Plan: * continue nightly CPAP (6) Type 2 diabetes mellitus: Qualifiers: Diabetes mellitus penitentiary insulin use: with ocean transportation intermediary use Diabetes mellitus complication status: without complication Qualified Code(s): E11.9 - Type 2 diabetes mellitus without complications; Z79.4 - emt intermediate (current) use of insulin Code(s): E11.9 - Type 2 diabetes mellitus without complications Status: Acute Assessment and Plan: * follow accu-cheks * glycemic control per hospitalist Will continue to follow. L Subjective Date/time seen: 03/07/25 10:45 Interval history: Follow-up for acute kidney injury/acute renal failure on chronic kidney disease. Chart reviewed -- assuming care for Dr. Cruz; overall, reports feeling better in general; lower extremity edema/swelling has improved; blood pressure control still somewhat erratic; renal function/creatinine fluctuating as well; no other issues/events overnight or earlier this morning. Exam 2 Narrative: General: elderly but WD/WN female in NAD Heart: normal S1 and S2; no rub Lungs: clear anteriorly Abdomen: soft, nontender, nondistended, positive bowel sounds Extremities: no cyanosis or clubbing; 1+ edema Skin: warm and dry Objective Data Vital Signs Vital Signs: Vital Signs Temp Pulse Resp BP Pulse Ox O2 Del Method 03/07/25 10:05 173/68 H 03/07/25 10:00 48 L 03/07/25 08:10 52 L 03/07/25 08:00 52 L 03/07/25 08:00 52 L 18 98 Room Air 03/07/25 07:12 98 F 57 L 18 179/56 H 98 03/07/25 06:00 52 L 03/07/25 04:00 51 L 03/07/25 04:00 97.7 F 52 L 17 168/78 H 98 03/07/25 02:45 18 BiPAP 03/07/25 02:00 53 L 03/07/25 00:00 49 L 03/06/25 23:37 97.8 F 55 L 17 163/45 H 94 03/06/25 22:45 55 L 18 97 BiPAP 03/06/25 22:00 50 L 03/06/25 20:00 51 L 03/06/25 19:50 98.6 F 50 L 16 130/81 97 Intake/Output Intake/Output: Intake & Output 03/04/25 03/05/25 03/06/25 03/07/25 23:59 23:59 23:59 23:59 Intake Total 1380 960 960 920 Output Total 2551 2550 1875 1550 [facility]1171 [phone] Meds/Results Medications: Active Medications Generic Name Dose Route Start Last Admin Trade Name Freq PRN Reason Stop Dose Admin Acetaminophen 650 mg 03/03/25 20:40 03/04/25 02:14 Acetaminophen 325 Mg Tablet PO 650 mg Q4H PRN Administration Mild Pain (1-3) or Fever Ascorbic Acid 250 mg 03/04/25 09:00 03/07/25 08:11 Ascorbic Acid 250 Mg Tablet PO 250 mg QAM SONJA Administration Dextrose 12.5 gm 03/03/25 20:40 Dextrose 50% 25 Gm/50 Ml Syringe IV PUSH PRN PRN Hypoglycemia Protocol Ferrous Sulfate 325 mg 03/04/25 09:00 03/07/25 08:11 Ferrous Sulfate [address] BY MOUTH 325 mg QAM SONJA Administration Furosemide 80 mg 03/04/25 17:00 03/07/25 16:36 Furosemide Inj 100 Mg/10 Ml Vial IV PUSH 80 mg BID SONJA Administration Glucagon 1 mg 03/03/25 20:40 Glucagon For Inj 1 Mg Vial IM PRN PRN Hypoglycemia Protocol Glucose 15 gm 03/03/25 20:40 Glucose Oral Gel 15 Gm Of Glucse In 37.5 Gm Tube PO PRN PRN Hypoglycemia Protocol Heparin Sodium (Porcine) 5,000 units 03/04/25 09:00 03/07/25 08:11 Heparin Sodium 5,000 Units/Ml Vial SUB-Q 5,000 units Q12HR SONJA Administration Hydralazine HCl 10 mg 03/05/25 05:12 03/06/25 17:13 Hydralazine Hcl 20 Mg/Ml Vial IV PUSH 10 mg Q6H PRN Administration Blood Pressure - High Hydralazine HCl 75 mg 03/07/25 10:00 03/07/25 16:36 Hydralazine Hcl 25 Mg Tablet BY MOUTH 75 mg Q6H SONJA Administration Hydroxyzine Pamoate 25 mg 03/06/25 11:18 03/06/25 16:56 Hydroxyzine Pamoate 25 Mg Capsule PO 25 mg Q4H PRN Administration Itching Dextrose 1,000 mls @ 100 mls/hr 03/03/25 20:40 Dextrose 5% 1,000 Ml IVPB PRN PRN Hypoglycemia Protocol Insulin Aspart 3 - 6 units 03/04/25 08:00 03/07/25 16:36 Insulin Aspart (*Bkc) 100 Units/Ml SUB-Q Not Given TIDWM [facility] Protocol Insulin Aspart 1 - 3 units 03/04/25 21:00 03/06/25 21:35 Insulin Aspart (*Bkc) 100 Units/Ml SUB-Q Not Given HS [facility] Protocol Insulin Glargine 20 units 03/05/25 21:00 03/06/25 21:21 Insulin Glargine (*Bkc) 100 Units/Ml SUB-Q 20 units HS SONJA Administration Irbesartan 300 mg 03/04/25 09:00 03/07/25 08:11 Irbesartan 150 Mg Tablet PO 300 mg DAILY SONJA Administration Nebivolol 20 mg 03/04/25 09:00 03/07/25 08:10 Nebivolol Hcl 5 Mg Tablet PO 20 mg DAILY SONJA Administration Nifedipine 60 mg 03/05/25 09:00 03/07/25 08:11 Nifedipine 30 Mg Tab.Er.24 PO 60 mg QAM SONJA Administration Pravastatin Sodium 10 mg 03/04/25 09:00 03/07/25 08:11 Pravastatin Sodium 10 Mg Tablet BY MOUTH 10 mg DAILY SONJA Administration Sodium Bicarbonate 1,300 mg 03/05/25 12:00 03/07/25 16:36 Sodium Bicarbonate Tab 650 Mg Tablet PO 1,300 mg TIDWM SONJA Administration Vitamin D 50 mcg 03/04/25 09:00 03/07/25 08:11 Cholecalciferol (Vitamin D3) 25 Mcg (1,000 Units) Tablet PO 50 mcg QAM SONJA Administration Radiology Results: ITS Impressions Chest X-Ray 03/03/25 17:45 IMPRESSION: Moderate pulmonary vascular congestion with bilateral pleural effusions, right greater than left. Venous Doppler Study 03/03/25 18:57 IMPRESSION: 1. No deep venous thrombosis. Renal Ultrasound 03/04/25 15:07 IMPRESSION: Left renal cysts. Otherwise, Normal study. Arterial/Peripheral Duplex 03/05/25 12:49 IMPRESSION: 1. No Doppler evidence of renal artery stenosis. Labs Labs: Laboratory Tests 03/07/25 03:55 03/07/25 03:55 Calcium 8.4 Phosphorus 5.4 H Magnesium 2.0 Total Bilirubin 0.2 AST 23 ALT 19 Alkaline Phosphatase 51 Total Protein 5.7 L Albumin 2.9 L
[2025-03-07] MEDS: INSULIN ASPART (*BKC) 100 UNITS/ML SUB-Q (20:51)
[2025-03-08] VITALS (18 sets, daily range): BP systolic 143–199; BP diastolic 44–80; PULSE 53–72; RESP 15–20; TEMP 36.4–37.1; O2SAT 94–99
[2025-03-08 04:54] LABS: Hematocrit 30.6 % (37.0-47.0); Hemoglobin 9.8 g/dL (12.0-15.0); Immature Granulocyte Percent A 0.4 % (0-0.5); Lymphocytes Absolute Auto 2.18 K/mm3 (0.9-3.2); Mean Corpuscular HGB Conc 32.0 g/dl (32-36); Mean Corpuscular Hemoglobin 32.8 pg (26-34); Mean Corpuscular Volume 102.3 fl (80-100); Nucleated Red Blood Cells Absolute Auto 0.000 K/mm3 (0.0-0.012); Nucleated Red Blood Cells Perc 0.0 % (0.0-0.2); Platelet Count Result 235 k/mm3 (150-375); Red Blood Count 2.99 M/mm3 (4.2-5.4); White Blood Count 8.3 K/mm3 (4.5-10.0)
[2025-03-08 05:09] LABS: Alanine Aminotransferase 20 U/L (6-35); Albumin Level 3.0 g/dL (3.5-5.1); Alkaline Phosphatase 53 U/L (38-126); Anion Gap 6 mmol/L (4-12); Aspartate Amino Transferase 23 U/L (14-36); Bilirubin,Total 0.3 mg/dL (0.2-1.3); Blood Urea Nitrogen 49 mg/dL (7-17); Calcium 8.6 mg/dL (8.4-10.2); Carbon Dioxide 26 mmol/L (22-30); Chloride 105 mmol/L (98-107); Estimated CRCL calculation 18 ml/min; Estimated Glomerular Filt Rate 15; Glucose 89 mg/dL (65-110); Magnesium 2.1 mg/dL (1.6-2.3); Potassium 4.1 mmol/L (3.4-5.0); Sodium 137 mmol/L (137-145); Total Protein 5.8 g/dL (6.3-8.2)
[2025-03-08] MEDS: FERROUS SULFATE 325 MG TABLET DR BY MOUTH (09:38)
[2025-03-08] MEDS: IRBESARTAN 150 MG TABLET 300 MG PO (09:40)
[2025-03-08] MEDS: PRAVASTATIN SODIUM 10 MG TABLET BY MOUTH (09:40)
[2025-03-08] MEDS: SODIUM BICARBONATE TAB 650 MG TABLET 1300 MG PO ×3 (09:41→17:34)
[2025-03-08] MEDS: ASCORBIC ACID 250 MG TABLET PO (09:41)
[2025-03-08] MEDS: NEBIVOLOL HCL 5 MG TABLET 20 MG PO (09:41)
[2025-03-08] MEDS: CHOLECALCIFEROL (VITAMIN D3) 25 MCG (1,000 UNITS) TABLET 50 MCG PO (09:42)
[2025-03-08] MEDS: FUROSEMIDE INJ 100 MG/10 ML VIAL 80 MG IV PUSH (09:44)
--- NOTE | 2025-03-08 11:56 | PM.IMPN ---
Progress Note: A&P Assessment and Plan (1) Acute on chronic diastolic congestive heart failure: Code(s): I50.33 - Acute on chronic diastolic (congestive) heart failure Status: Acute (2) Acute on chronic kidney failure: Code(s): N17.9 - Acute kidney failure, unspecified; N18.9 - Chronic kidney disease, unspecified Status: Acute (3) Elevated troponin: Code(s): R79.89 - Other specified abnormal findings of blood chemistry Status: Acute (4) Hypertensive urgency: Code(s): I16.0 - Hypertensive urgency Status: Acute (5) Insulin dependent type 2 diabetes mellitus: Code(s): E11.9 - Type 2 diabetes mellitus without complications; Z79.4 - manager long term care (current) use of insulin Status: Acute (6) Obstructive sleep apnea on CPAP: Code(s): G47.33 - Obstructive sleep apnea (adult) (pediatric); Z99.89 - Dependence on other enabling machines and devices Status: Acute Plan This is a very pleasant 69-year-old female with insulin-dependent type 2 diabetes mellitus, hypertension, diastolic dysfunction chronic kidney disease, obstructive sleep apnea, gastroesophageal reflux disease, depression, and anxiety who presented to the emergency department via private vehicle for evaluation of abnormal labs and elevated blood pressures. She gives at least a month long history of increasing bilateral lower extremity edema and progressive dyspnea on exertion and has seen her fiber locking supervisor, Dr. Horta, and nuclear powerplant mechanic, Dr. Cruz recently and had some medication changes due to uncontrolled blood pressures and worsening renal function (amlodipine discontinued, nebivolol increased, max dose irbesartan, and hydralazine t.i.d.). Today she had a follow-up appointment with her primary care provider and was referred to the emergency department for evaluation due to continued high blood pressures (systolics over 200) and increasing creatinine. She does not really have any complaints aside from those as listed above. With further questioning she admits that her appetite has been poor the last couple of after the unexpected of her from an [place]. She denies fever, cold and flu symptoms, chest pain, orthopnea, calf pain, cough, nausea, vomiting, diarrhea, and dysuria. In the ED: Blood pressure was 228/57 on arrival. The remainder of her vital signs were stable. Labs were significant for a WBC count of 10.1, hemoglobin 10.8, MCV 102.1, chloride 117, carbon dioxide 20, anion gap 7, BUN 36, creatinine 3.03, troponin 0.043, proBNP 6880, albumin 3.5. EKG showed sinus bradycardia with nonspecific ST and T-wave abnormalities in the high lateral leads and delayed precordial R/S transition. Lower extremity venous Doppler ultrasounds were negative for DVT. Chest x-ray showed moderate pulmonary vascular congestion with bilateral pleural effusions, right greater than left. She received furosemide 40 mg IV, hydralazine 10 mg IV, and 1 in nitroglycerin paste. She is being admitted in this setting for further treatment of poorly controlled hypertension, volume overload, and worsening kidney function accelerated hypertension currently on amlodipine 10 mg every below 20 mg irbesartan 300 mg hydralazine 50 3 times a day. And Lasix 80 b.i.d. Primarily systolic hypertension. iv hydralazine prn. Amlodipine switch to nifedipine has not much response from amlodipine. Much improved response with the nifedipine. Her blood pressure 10 to get elevated at night. Switched hydralazine to q.8 hours instead of t.i.d. and this helped. Not optimal however. and switched to q.6 our. Overall blood pressure has improved significantly as compared to her admission readings. Renal duplex negative for renal artery stenosis. will increase nifedipine to 90 mg daily recent stressor with loss of on Vistaril p.r.n. ryanne on ckd stage neprology on board. Creatinine to 3. Creatinine down to 0.7 today.? Baseline creatinine around mid 1s to low 2s the past. Urine protein elevated more than 18. Plan for renal biopsy aspirin on hold which will be tentatively planned for Friday. chf acute on chronic diastolic. iv diuresis as tolerated BNP elevated at 6880. Venous duplex negative for DVT. Chest x-ray with moderate pulmonary vascular congestion with bilateral pleural effusion right greater than left. Echo 02/2024 with EF 60-65% mild pulmonary hypertension mild MR mild TR abnormal diastolic function repeat echo with EF 60-65% moderate concentric left ventricular wall thickness diastolic dysfunction abnormal mild pulmonary hypertension [id number] mitral regurgitation elevated troponin Mild flat JAMES on cpap non compliant with cpap. Advised to use CPAP type 2 dm: basal insulin, ssi. GERD Anxiety depression DVT prophylaxis heparin subQ Subjective Date/time seen: 03/08/25 11:56 Interval history: no overnight events. No new complaints. Received IV hydralazine the last night. shortness of breath has been improving. Plan for biopsy on Friday. Review of Systems Review of Systems: All systems reviewed & are unremarkable except as noted in HPI and below Exam Narrative: General: Nontoxic-appearing female sitting up in bed in no acute distress. HEENT: PERRL, EOMI. Sclera anicteric. Moist mucous membranes. Oropharynx is clear. Neck: Supple. No obvious JVD. Respiratory: Respirations are nonlabored and she is speaking in full sentences. Lung sounds are a bit diminished at the bases Cardiovascular: Regular rate and rhythm with S1-S2. Soft systolic murmur at the left sternal border. Gastrointestinal: Abdomen is soft, nontender, and nondistended with positive bowel sounds. Skin: Warm and dry. Extremities: No cyanosis or clubbing. Tight, One to 2+ pitting edema of the lower legs up to the knees. No palpable knots or cords. Negative Steven sign bilaterally. Peripheral pulses intact. Neurological: Alert. Cranial nerves grossly intact. No gross focal deficits to casual conversation. Psychiatric: Pleasant and cooperative with normal mood and affect. Judgment and insight intact. Objective Data Vital Signs Vital Signs: Vital Signs - 24 hr 03/07/25 12:00 03/07/25 12:00 03/07/25 12:10 Temperature 98 F Pulse Rate 48 L 50 L 55 L Respiratory Rate 18 18 Blood Pressure 165/66 H Pulse Oximetry 98 98 Oxygen Delivery Room Air 03/07/25 14:00 03/07/25 16:00 03/07/25 19:55 Temperature 97.8 F 97.5 F L Pulse Rate 48 L 49 L 57 L Respiratory Rate 18 18 Blood Pressure 154/87 H 175/44 H Pulse Oximetry 96 100 Oxygen Delivery 03/07/25 20:00 03/08/25 00:00 03/08/25 01:31 Temperature 97.6 F Pulse Rate 55 L 55 L Respiratory Rate 18 Blood Pressure 187/53 H 196/51 H Pulse Oximetry 98 Oxygen Delivery Room Air 03/08/25 02:24 03/08/25 04:00 03/08/25 07:11 Temperature 98.8 F 98 F Pulse Rate 54 L 72 Respiratory Rate 15 18 Blood Pressure 199/61 H 153/50 H 184/53 H Pulse Oximetry 98 94 Oxygen Delivery 07/01/25 09:30 03/08/25 09:41 03/08/25 10:25 Temperature Pulse Rate 66 Respiratory Rate Blood Pressure 184/51 H 166/49 H Pulse Oximetry Oxygen Delivery 03/08/25 11:17 Temperature 97.7 F Pulse Rate 56 L Respiratory Rate 18 Blood Pressure Pulse Oximetry 98 Oxygen Delivery Intake/Output Intake/Output: Intake & Output 03/05/25 03/06/25 03/07/25 03/08/25 23:59 23:59 23:59 23:59 Intake Total 258 933 8682 540 Output Total 2550 1875 2250 2100 Balance -1590 -915 -930 -1560 Meds/Results Medications: Active Medications Generic Name Dose Route Start Last Admin Trade Name Freq PRN Reason Stop Dose Admin Acetaminophen 650 mg 03/03/25 20:40 03/04/25 02:14 Acetaminophen 325 Mg Tablet PO 650 mg Q4H PRN Administration Mild Pain (1-3) or Fever Ascorbic Acid 250 mg 03/04/25 09:00 03/08/25 09:41 Ascorbic Acid 250 Mg Tablet PO 250 mg QAM SONJA Administration Dextrose 12.5 gm 03/03/25 20:40 Dextrose 50% 25 Gm/50 Ml Syringe IV PUSH PRN PRN Hypoglycemia Protocol Ferrous Sulfate 325 mg 03/04/25 09:00 03/08/25 09:38 Ferrous Sulfate [address] BY MOUTH 325 mg QAM SONJA Administration Furosemide 80 mg 03/04/25 17:00 03/08/25 09:44 Furosemide Inj 100 Mg/10 Ml Vial IV PUSH 80 mg BID SONJA Administration Glucagon 1 mg 03/03/25 20:40 Glucagon For Inj 1 Mg Vial IM PRN PRN Hypoglycemia Protocol Glucose 15 gm 03/03/25 20:40 Glucose Oral Gel 15 Gm Of Glucse In 37.5 Gm Tube PO PRN PRN Hypoglycemia Protocol Heparin Sodium (Porcine) 5,000 units 03/04/25 09:00 03/08/25 10:20 Heparin Sodium 5,000 Units/Ml Vial SUB-Q 5,000 units Q12HR SONJA Administration Hydralazine HCl 10 mg 03/05/25 05:12 03/08/25 01:34 Hydralazine Hcl 20 Mg/Ml Vial IV PUSH 10 mg Q6H PRN Administration Blood Pressure - High Hydralazine HCl 75 mg 03/07/25 10:00 03/08/25 10:25 Hydralazine Hcl 25 Mg Tablet BY MOUTH 75 mg Q6H SONJA Administration Hydroxyzine Pamoate 25 mg 03/06/25 11:18 03/08/25 09:40 Hydroxyzine Pamoate 25 Mg Capsule PO 25 mg Q4H PRN Administration Itching Dextrose 1,000 mls @ 100 mls/hr 03/03/25 20:40 Dextrose 5% 1,000 Ml IVPB PRN PRN Hypoglycemia Protocol Insulin Aspart 3 - 6 units 03/04/25 08:00 03/08/25 11:54 Insulin Aspart (*Bkc) 100 Units/Ml SUB-Q Not Given TIDWM SONJA Protocol Insulin Aspart 1 - 3 units 03/04/25 21:00 03/07/25 20:51 Insulin Aspart (*Bkc) 100 Units/Ml SUB-Q 1 units HS SONJA Administration Protocol Insulin Glargine 20 units 03/05/25 21:00 03/06/25 21:21 Insulin Glargine (*Bkc) 100 Units/Ml SUB-Q 20 units HS SONJA Administration Irbesartan 300 mg 03/04/25 09:00 03/08/25 09:40 Irbesartan 150 Mg Tablet PO 300 mg DAILY SONJA Administration Nebivolol 20 mg 03/04/25 09:00 03/08/25 09:41 Nebivolol Hcl 5 Mg Tablet PO 20 mg DAILY SONJA Administration Nifedipine 90 mg 03/08/25 09:00 03/08/25 09:38 Nifedipine 30 Mg Tab.Er.24 PO 90 mg QAM SONJA Administration Pravastatin Sodium 10 mg 03/04/25 09:00 03/08/25 09:40 Pravastatin Sodium 10 Mg Tablet BY MOUTH 10 mg DAILY SONJA Administration Sodium Bicarbonate 1,300 mg 03/05/25 12:00 03/08/25 09:41 Sodium Bicarbonate Tab 650 Mg Tablet PO 1,300 mg TIDWM SONJA Administration Vitamin D 50 mcg 03/04/25 09:00 03/08/25 09:42 Cholecalciferol (Vitamin D3) 25 Mcg (1,000 Units) Tablet PO 50 mcg QAM SONJA Administration Radiology Results: ITS Impressions Chest X-Ray 03/03/25 17:45 IMPRESSION: Moderate pulmonary vascular congestion with bilateral pleural effusions, right greater than left. Venous Doppler Study 03/03/25 18:57 IMPRESSION: 1. No deep venous thrombosis. Renal Ultrasound 03/04/25 15:07 IMPRESSION: Left renal cysts. Otherwise, Normal study. Arterial/Peripheral Duplex 03/05/25 12:49 IMPRESSION: 1. No Doppler evidence of renal artery stenosis. Labs Labs: Laboratory Results - last 24 hr 03/07/25 03/07/25 03/07/25 11:07 16:33 19:24 WBC RBC Hgb Hct MCV MCH MCHC RDW Plt Count MPV Immature Gran % (Auto) Neut % (Auto) Lymph % (Auto) [place] % (Auto) Eos % (Auto) Baso % (Auto) Lymph # (Auto) [place] # (Auto) Eos # (Auto) Baso # (Auto) Abs Immat Gran (auto) Absolute Neuts (auto) Absolute Nucleated RBC Nucleated RBC % Sodium Potassium Chloride Carbon Dioxide Anion Gap BUN Creatinine Estim Creat Clear Calc Estimated GFR Glucose POC Capillary Glucose 149 H 152 H 217 H Calcium Magnesium Total Bilirubin AST ALT Alkaline Phosphatase Total Protein Albumin 03/08/25 03/08/25 03/08/25 04:06 07:11 11:21 WBC 8.3 RBC 2.99 L Hgb 9.8 L Hct 30.6 L MCV 102.3 H MCH 32.8 MCHC 32.0 RDW 12.9 Plt Count 235 MPV 12.5 H Immature Gran % (Auto) 0.4 Neut % (Auto) 58.8 Lymph % (Auto) 26.4 [place] % (Auto) 9.7 H Eos % (Auto) 3.9 Baso % (Auto) 0.8 Lymph # (Auto) 2.18 [place] # (Auto) 0.8 H Eos # (Auto) 0.3 Baso # (Auto) 0.1 Abs Immat Gran (auto) 0.03 Absolute Neuts (auto) 4.9 Absolute Nucleated RBC 0.000 Nucleated RBC % 0.0 Sodium 137 Potassium 4.1 Chloride 105 Carbon Dioxide 26 Anion Gap 6 BUN 49 H Creatinine 3.16 H Estim Creat Clear Calc 18 Estimated GFR 15 L Glucose 89 POC Capillary Glucose 102 162 H Calcium 8.6 Magnesium 2.1 Total Bilirubin 0.3 AST 23 ALT 20 Alkaline Phosphatase 53 Total Protein 5.8 L Albumin 3.0 L
--- NOTE | 2025-03-08 13:00 | P.PNNP_ITS ---
Progress Note: A&P Assessment and Plan (1) Acute kidney injury: Code(s): N17.9 - Acute kidney failure, unspecified Status: Acute Assessment and Plan: * etiology not clear * element of kidney disease progression? * due to very high BP versus some intrinsic disease other than diabetes or hypertension * however, now complicated with worsening proteinuria and hematuria * tentatively on schedule for renal biopsy on Friday (03/09/25) * follow trend of repeat labs and UOP (2) Stage 4 chronic kidney disease: Code(s): N18.4 - Chronic kidney disease, stage 4 (severe) Status: Chronic Assessment and Plan: * baseline creatinine running ~ 2.0 - 2.5mg/dl for the last year or so * suspect secondary to diabetes and hypertension based on outpatient evaluation * however, with worsening proteinuria, tentative plan was for a renal biopsy for further assessement (but this was delayed due to her passing) (3) Hypertensive urgency: Code(s): I16.0 - Hypertensive urgency Status: Acute Assessment and Plan: * as noted on admission * was not taking her blood pressure at home so it is not clear how long this had been going on * no evidence of renal artery stenosis by renal duplex * on nifedipine, hydralazine, irbesartan, and nebivolol * titrate hydralazine * could also increase dose/frequency of nifedipine * follow trend of hemodynamics (4) Acute on chronic diastolic congestive heart failure: Code(s): I50.33 - Acute on chronic diastolic (congestive) heart failure Status: Acute Assessment and Plan: * likely due to diastolic dysfunction, pulmonary HTN and possibly proteinuria * worsening renal function likely contributing as well * recent Echo (03/04) noted: * left ventricular systolic function is normal, estimated at 60 - 65% * left ventricular diastolic function is abnormal * mild aortic valve sclerosis * mild to moderate mitral valve regurgitation * mild tricuspid valve regurgitation * mild pulmonary hypertension, estimated pulmonary arterial systolic pressure is 43 mmHg * trace pulmonic regurgitation * continue current diuretics (5) Obstructive sleep apnea on CPAP: Code(s): G47.33 - Obstructive sleep apnea (adult) (pediatric); Z99.89 - Dependence on other enabling machines and devices Status: Acute Assessment and Plan: * continue nightly CPAP (6) Type 2 diabetes mellitus: Qualifiers: Diabetes mellitus watcher [employer] insulin use: with watcher [employer] use Diabetes mellitus complication status: without complication Qualified Code(s): E11.9 - Type 2 diabetes mellitus without complications; Z79.4 - intermediate project manager (current) use of insulin Code(s): E11.9 - Type 2 diabetes mellitus without complications Status: Acute Assessment and Plan: * follow accu-cheks * glycemic control per hospitalist Will continue to follow. L Subjective Date/time seen: 03/08/25 11:45 Interval history: Follow-up for acute kidney injury/acute renal failure on chronic kidney disease. Breathing/respiratory status as well as LE edema/swelling continue to improve with ongoing diuresis; BP continues to fluctuate requiring IV hydralazine overnight; no other issues/events overnight or earlier this morning. Exam 2 Narrative: General: elderly but WD/WN female in NAD Heart: normal S1 and S2; no rub Lungs: clear anteriorly Abdomen: soft, nontender, nondistended, positive bowel sounds Extremities: no cyanosis or clubbing; 1+ edema Skin: warm and intact Objective Data Vital Signs Vital Signs: Vital Signs Temp Pulse Resp BP Pulse Ox O2 Del Method 03/08/25 11:17 97.7 F 56 L 18 195/58 H 98 03/08/25 10:25 166/49 H 03/08/25 09:41 66 03/08/25 09:30 184/51 H 03/08/25 07:11 98 F 72 18 184/53 H 94 03/08/25 04:00 98.8 F 54 L 15 153/50 H 98 03/08/25 02:24 199/61 H 03/08/25 01:31 55 L 196/51 H 03/08/25 00:00 97.6 F 55 L 18 187/53 H 98 03/07/25 20:00 Room Air 03/07/25 19:55 97.5 F L 57 L 18 175/44 H 100 03/07/25 16:00 97.8 F 49 L 18 154/87 H 96 03/07/25 14:00 48 L Intake/Output Intake/Output: Intake & Output 03/05/25 03/06/25 03/07/25 03/08/25 23:59 23:59 23:59 23:59 Intake Total 783 436 6944 780 Output Total 4630 1875 2250 2100 Balance -3220 -915 -930 -1320 Meds/Results Medications: Active Medications Generic Name Dose Route Start Last Admin Trade Name Jerrica PRN Reason Stop Dose Admin Acetaminophen 650 mg 03/03/25 20:40 03/04/25 02:14 Acetaminophen 325 Mg Tablet PO 650 mg Q4H PRN Administration Mild Pain (1-3) or Fever Ascorbic Acid 250 mg 03/04/25 09:00 03/08/25 09:41 Ascorbic Acid 250 Mg Tablet PO 250 mg QAM SONJA Administration Clonidine HCl 0.1 mg 03/09/25 08:00 Clonidine Hcl 0.1 Mg Tablet PO Q12HR PRN systolic BP > 180 Dextrose 12.5 gm 03/03/25 20:40 Dextrose 50% 25 Gm/50 Ml Syringe IV PUSH PRN PRN Hypoglycemia Protocol Ferrous Sulfate 325 mg 03/04/25 09:00 03/08/25 09:38 Ferrous Sulfate [address] BY MOUTH 325 mg QAM SONJA Administration Furosemide 80 mg 03/08/25 17:00 Furosemide 80 Mg Tablet PO BID SONJA Glucagon 1 mg 03/03/25 20:40 Glucagon For Inj 1 Mg Vial IM PRN PRN Hypoglycemia Protocol Glucose 15 gm 03/03/25 20:40 Glucose Oral Gel 15 Gm Of Glucse In 37.5 Gm Tube PO PRN PRN Hypoglycemia Protocol Heparin Sodium (Porcine) 5,000 units 03/04/25 09:00 03/08/25 10:20 Heparin Sodium 5,000 Units/Ml Vial SUB-Q 5,000 units Q12HR SONJA Administration Hydralazine HCl 10 mg 03/05/25 05:12 03/08/25 12:07 Hydralazine Hcl 20 Mg/Ml Vial IV PUSH 10 mg Q6H PRN Administration Blood Pressure - High Hydralazine HCl 100 mg 03/08/25 18:00 Hydralazine Hcl 50 Mg Tablet BY MOUTH Q6HR [facility] Hydroxyzine Pamoate 25 mg 03/06/25 11:18 03/08/25 09:40 Hydroxyzine Pamoate 25 Mg Capsule PO 25 mg Q4H PRN Administration Itching Dextrose 1,000 mls @ 100 mls/hr 03/03/25 20:40 Dextrose 5% 1,000 Ml IVPB PRN PRN Hypoglycemia Protocol Insulin Aspart 3 - 6 units 03/04/25 08:00 03/08/25 11:54 Insulin Aspart (*Bkc) 100 Units/Ml SUB-Q Not Given TIDWM [facility] Protocol Insulin Aspart 1 - 3 units 03/04/25 21:00 03/07/25 20:51 Insulin Aspart (*Bkc) 100 Units/Ml SUB-Q 1 units HS SONJA Administration Protocol Insulin Glargine 20 units 03/05/25 21:00 03/06/25 21:21 Insulin Glargine (*Bkc) 100 Units/Ml SUB-Q 20 units HS SONJA Administration Irbesartan 300 mg 03/04/25 09:00 03/08/25 09:40 Irbesartan 150 Mg Tablet PO 300 mg DAILY SONJA Administration Nebivolol 20 mg 03/04/25 09:00 03/08/25 09:41 Nebivolol Hcl 5 Mg Tablet PO 20 mg DAILY SONJA Administration Nifedipine 90 mg 03/08/25 09:00 03/08/25 09:38 Nifedipine 30 Mg Tab.Er.24 PO 90 mg QAM SONJA Administration Nifedipine 60 mg 03/08/25 21:00 Nifedipine 30 Mg Tab.Er.24 PO 03/08/25 21:01 ONCE ONE Pravastatin Sodium 10 mg 03/04/25 09:00 03/08/25 09:40 Pravastatin Sodium 10 Mg Tablet BY MOUTH 10 mg DAILY SONJA Administration Sodium Bicarbonate 1,300 mg 03/05/25 12:00 03/08/25 12:07 Sodium Bicarbonate Tab 650 Mg Tablet PO 1,300 mg TIDWM SONJA Administration Vitamin D 50 mcg 03/04/25 09:00 03/08/25 09:42 Cholecalciferol (Vitamin D3) 25 Mcg (1,000 Units) Tablet PO 50 mcg QAM [facility] Administration Radiology Results: ITS Impressions Chest X-Ray 03/03/25 17:45 IMPRESSION: Moderate pulmonary vascular congestion with bilateral pleural effusions, right greater than left. Venous Doppler Study 03/03/25 18:57 IMPRESSION: 1. No deep venous thrombosis. Renal Ultrasound 03/04/25 15:07 IMPRESSION: Left renal cysts. Otherwise, Normal study. Arterial/Peripheral Duplex 03/05/25 12:49 IMPRESSION: 1. No Doppler evidence of renal artery stenosis. Labs Labs: Laboratory Tests 03/08/25 04:06 03/08/25 04:06 Calcium 8.6 Magnesium 2.1 Total Bilirubin 0.3 AST 23 ALT 20 Alkaline Phosphatase 53 Total Protein 5.8 L Albumin 3.0 L
--- NOTE | 2025-03-08 13:32 | P.CDI_ITS ---
CDI Query Clarification Request Patient with a BMI of 43.8 please provide a diagnosis to accompany this finding: * Overweight * Obesity * Morbid Obesity * Other/Unknown <Mary Davison RN - Last Filed: 03/08/25 13:32> Provider Comments Morbid obesity <Ck Lugo MD - Last Filed: 03/08/25 17:13>
--- NOTE | 2025-03-08 13:32 | WPDCDIQUERY2 ---
CDI Query Clarification Request Patient with a BMI of 43.8 please provide a diagnosis to accompany this finding: Overweight Obesity Morbid Obesity Other/Unknown <Mary Davison RN - Last Filed: 03/08/25 13:32> Provider Comments Morbid obesity <Ck Lugo MD - Last Filed: 03/08/25 17:13>
[2025-03-08] MEDS: FUROSEMIDE 80 MG TABLET PO (17:33)
[2025-03-09] VITALS (24 sets, daily range): BP systolic 109–169; BP diastolic 35–82; PULSE 46–100; RESP 16–991; TEMP 36.4–37.1; O2SAT 94–100
[2025-03-09 04:44] LABS: Hematocrit 29.7 % (37.0-47.0); Hemoglobin 9.8 g/dL (12.0-15.0); Immature Granulocyte Percent A 0.3 % (0-0.5); Lymphocytes Absolute Auto 2.33 K/mm3 (0.9-3.2); Mean Corpuscular HGB Conc 33.0 g/dl (32-36); Mean Corpuscular Hemoglobin 33.7 pg (26-34); Mean Corpuscular Volume 102.1 fl (80-100); Nucleated Red Blood Cells Absolute Auto 0.000 K/mm3 (0.0-0.012); Nucleated Red Blood Cells Perc 0.0 % (0.0-0.2); Platelet Count Result 247 k/mm3 (150-375); Red Blood Count 2.91 M/mm3 (4.2-5.4); White Blood Count 7.6 K/mm3 (4.5-10.0)
[2025-03-09 04:55] LABS: INR 1.0; Prothrombin Time 13.0 Seconds (11.1-14.7)
[2025-03-09 04:56] LABS: Partial Thromboplastin Time 31.5 Seconds (22.3-36.8)
[2025-03-09 04:57] LABS: Alanine Aminotransferase 22 U/L (6-35); Albumin Level 3.1 g/dL (3.5-5.1); Alkaline Phosphatase 55 U/L (38-126); Anion Gap 6 mmol/L (4-12); Aspartate Amino Transferase 26 U/L (14-36); Bilirubin,Total 0.3 mg/dL (0.2-1.3); Blood Urea Nitrogen 46 mg/dL (7-17); Calcium 8.7 mg/dL (8.4-10.2); Carbon Dioxide 28 mmol/L (22-30); Chloride 101 mmol/L (98-107); Estimated CRCL calculation 17 ml/min; Estimated Glomerular Filt Rate 13; Glucose 122 mg/dL (65-110); Magnesium 2.0 mg/dL (1.6-2.3); Potassium 4.2 mmol/L (3.4-5.0); Sodium 135 mmol/L (137-145); Total Protein 5.9 g/dL (6.3-8.2)
[2025-03-09] MEDS: ASCORBIC ACID 250 MG TABLET PO (09:15)
[2025-03-09] MEDS: FUROSEMIDE 80 MG TABLET PO (09:15)
[2025-03-09] MEDS: IRBESARTAN 150 MG TABLET 300 MG PO (09:15)
[2025-03-09] MEDS: CHOLECALCIFEROL (VITAMIN D3) 25 MCG (1,000 UNITS) TABLET 50 MCG PO (09:15)
[2025-03-09] MEDS: FERROUS SULFATE 325 MG TABLET DR BY MOUTH (09:15)
[2025-03-09] MEDS: NEBIVOLOL HCL 5 MG TABLET 20 MG PO (09:16)
[2025-03-09] MEDS: PRAVASTATIN SODIUM 10 MG TABLET BY MOUTH (09:16)
[2025-03-09] MEDS: SODIUM BICARBONATE TAB 650 MG TABLET 1300 MG PO ×3 (09:17→17:32)
--- NOTE | 2025-03-09 12:32 | P.PNNP_ITS ---
Progress Note: A&P Assessment and Plan (1) Acute kidney injury: Code(s): N17.9 - Acute kidney failure, unspecified Status: Acute Assessment and Plan: * etiology not clear * element of kidney disease progression? * due to very high BP versus some intrinsic disease other than diabetes or hypertension * however, now complicated with worsening proteinuria and hematuria * tentatively on schedule for renal biopsy on (03/10) * follow trend of repeat labs and UOP (2) Stage 4 chronic kidney disease: Code(s): N18.4 - Chronic kidney disease, stage 4 (severe) Status: Chronic Assessment and Plan: * baseline creatinine running ~ 2.0 - 2.5mg/dl for the last year or so * suspect secondary to diabetes and hypertension based on outpatient evaluation * however, with worsening proteinuria, tentative plan was for a renal biopsy for further assessement (but this was delayed due to her passing) (3) Hypertensive urgency: Code(s): I16.0 - Hypertensive urgency Status: Acute Assessment and Plan: * as noted on admission * was not taking her blood pressure at home so it is not clear how long this had been going on * no evidence of renal artery stenosis by renal duplex * on nifedipine, hydralazine, irbesartan, and nebivolol * titrate hydralazine * could also increase dose/frequency of nifedipine * follow trend of hemodynamics (4) Acute on chronic diastolic congestive heart failure: Code(s): I50.33 - Acute on chronic diastolic (congestive) heart failure Status: Acute Assessment and Plan: * likely due to diastolic dysfunction, pulmonary HTN and possibly proteinuria * worsening renal function likely contributing as well * recent Echo (03/04) noted: * left ventricular systolic function is normal, estimated at 60 - 65% * left ventricular diastolic function is abnormal * mild aortic valve sclerosis * mild to moderate mitral valve regurgitation * mild tricuspid valve regurgitation * mild pulmonary hypertension, estimated pulmonary arterial systolic pressure is 43 mmHg * trace pulmonic regurgitation * continue diuresis (5) Obstructive sleep apnea on CPAP: Code(s): G47.33 - Obstructive sleep apnea (adult) (pediatric); Z99.89 - Dependence on other enabling machines and devices Status: Acute Assessment and Plan: * continue nightly CPAP (6) Type 2 diabetes mellitus: Qualifiers: Diabetes mellitus mcfp insulin use: with mcfp use Diabetes mellitus complication status: without complication Qualified Code(s): E11.9 - Type 2 diabetes mellitus without complications; Z79.4 - nursing home (current) use of insulin Code(s): E11.9 - Type 2 diabetes mellitus without complications Status: Acute Assessment and Plan: * follow accu-cheks * glycemic control per hospitalist Will continue to follow. L Subjective Date/time seen: 03/09/25 12:32 Interval history: Follow-up for acute kidney injury/acute renal failure on chronic kidney disease. Renal biopsy was tentatively planned for today but has now been re-scheduled for tomorrow; blood pressure still somewhat erratic at time as noted by trend of hemodynamics; fluid status/swelling/edema has improved since admission and transitioned to oral diuretics yesterday; renal function/creatinine still fluctuating but continues to have good urine output. Exam 2 Narrative: General: elderly but WD/WN female in NAD Heart: normal S1 and S2; no rub Lungs: clear anteriorly Abdomen: soft, nontender, nondistended, positive bowel sounds Extremities: no cyanosis or clubbing; 1+ edema Skin: no rash Objective Data Vital Signs Vital Signs: Vital Signs Temp Pulse Resp BP Pulse Ox O2 Del Method 03/09/25 12:00 50 L 03/09/25 11:37 98.7 F 56 L 991 H 169/58 H 99 03/09/25 10:00 46 L 03/09/25 09:16 55 L 03/09/25 08:00 56 L 03/09/25 07:36 98 F 50 L 18 144/50 H 97 03/09/25 06:00 49 L 03/09/25 04:00 Room Air 03/09/25 04:00 97.7 F 57 L 16 150/40 H 100 03/09/25 04:00 53 L 03/09/25 02:00 49 L 03/09/25 01:00 56 L 121/82 03/09/25 00:00 48 L 03/09/25 00:00 Room Air 03/08/25 23:56 97.8 F 55 L 16 196/44 H 98 03/08/25 23:30 56 L 20 98 CPAP 03/08/25 22:00 53 L 03/08/25 20:00 57 L 03/08/25 20:00 Room Air 03/08/25 20:00 97.8 F 59 L 16 146/49 H 99 03/08/25 18:53 147/80 H 03/08/25 17:40 193/67 H Intake/Output Intake/Output: Intake & Output 03/06/25 03/07/25 03/08/25 03/09/25 23:59 23:59 23:59 23:59 Intake Total 960 1320 1020 640 Output Total 1875 2250 2200 1700 Balance -915 -930 -1180 -1060 Meds/Results Medications: Active Medications Generic Name Dose Route Start Last Admin Trade Name Freq PRN Reason Stop Dose Admin Acetaminophen 650 mg 03/03/25 20:40 03/04/25 02:14 Acetaminophen 325 Mg Tablet PO 650 mg Q4H PRN Administration Mild Pain (1-3) or Fever Ascorbic Acid 250 mg 03/04/25 09:00 03/09/25 09:15 Ascorbic Acid 250 Mg Tablet PO 250 mg QAM SONJA Administration Clonidine HCl 0.1 mg 03/09/25 08:00 03/08/25 18:05 Clonidine Hcl 0.1 Mg Tablet PO 0.1 mg Q12HR PRN Administration systolic BP > 180 Dextrose 12.5 gm 03/03/25 20:40 Dextrose 50% 25 Gm/50 Ml Syringe IV PUSH PRN PRN Hypoglycemia Protocol Ferrous Sulfate 325 mg 03/04/25 09:00 03/09/25 09:15 Ferrous Sulfate [address] BY MOUTH 325 mg QAM SONJA Administration Furosemide 80 mg 03/08/25 17:00 03/09/25 09:15 Furosemide 80 Mg Tablet PO 80 mg BID SONJA Administration Glucagon 1 mg 03/03/25 20:40 Glucagon For Inj 1 Mg Vial IM PRN PRN Hypoglycemia Protocol Glucose 15 gm 03/03/25 20:40 Glucose Oral Gel 15 Gm Of Glucse In 37.5 Gm Tube PO PRN PRN Hypoglycemia Protocol Heparin Sodium (Porcine) 5,000 units 03/04/25 09:00 03/09/25 08:24 Heparin Sodium 5,000 Units/Ml Vial SUB-Q Not Given Q12HR SONJA Hydralazine HCl 10 mg 03/05/25 05:12 03/09/25 00:12 Hydralazine Hcl 20 Mg/Ml Vial IV PUSH 10 mg Q6H PRN Administration Blood Pressure - High Hydralazine HCl 100 mg 03/08/25 18:00 03/09/25 12:10 Hydralazine Hcl 50 Mg Tablet BY MOUTH 100 mg Q6HR SONJA Administration Hydroxyzine Pamoate 25 mg 03/06/25 11:18 03/09/25 09:38 Hydroxyzine Pamoate 25 Mg Capsule PO 25 mg Q4H PRN Administration Itching Dextrose 1,000 mls @ 100 mls/hr 03/03/25 20:40 Dextrose 5% 1,000 Ml IVPB PRN PRN Hypoglycemia Protocol Insulin Aspart 3 - 6 units 03/04/25 08:00 03/09/25 12:18 Insulin Aspart (*Bkc) 100 Units/Ml SUB-Q Not Given TIDWM SONJA Protocol Insulin Aspart 1 - 3 units 03/04/25 21:00 03/08/25 20:53 Insulin Aspart (*Bkc) 100 Units/Ml SUB-Q Not Given HS SONJA Protocol Insulin Glargine 20 units 03/05/25 21:00 03/06/25 21:21 Insulin Glargine (*Bkc) 100 Units/Ml SUB-Q 20 units HS SONJA Administration Irbesartan 300 mg 03/04/25 09:00 03/09/25 09:15 Irbesartan 150 Mg Tablet PO 300 mg DAILY SONJA Administration Nebivolol 20 mg 03/04/25 09:00 03/09/25 09:16 Nebivolol Hcl 5 Mg Tablet PO 20 mg DAILY SONJA Administration Nifedipine 90 mg 03/08/25 09:00 03/09/25 09:16 Nifedipine 30 Mg Tab.Er.24 PO 90 mg QAM SONJA Administration Pravastatin Sodium 10 mg 03/04/25 09:00 03/09/25 09:16 Pravastatin Sodium 10 Mg Tablet BY MOUTH 10 mg DAILY SONJA Administration Sodium Bicarbonate 1,300 mg 03/05/25 12:00 03/09/25 12:10 Sodium Bicarbonate Tab 650 Mg Tablet PO 1,300 mg TIDWM SONJA Administration Vitamin D 50 mcg 03/04/25 09:00 03/09/25 09:15 Cholecalciferol (Vitamin D3) 25 Mcg (1,000 Units) Tablet PO 50 mcg QAM SONJA Administration Radiology Results: ITS Impressions Chest X-Ray 03/03/25 17:45 IMPRESSION: Moderate pulmonary vascular congestion with bilateral pleural effusions, right greater than left. Venous Doppler Study 03/03/25 18:57 IMPRESSION: 1. No deep venous thrombosis. Renal Ultrasound 03/04/25 15:07 IMPRESSION: Left renal cysts. Otherwise, Normal study. Arterial/Peripheral Duplex 03/05/25 12:49 IMPRESSION: 1. No Doppler evidence of renal artery stenosis. Labs Labs: Laboratory Tests 03/09/25 04:25 03/09/25 04:25 Calcium 8.7 Magnesium 2.0 Total Bilirubin 0.3 AST 26 ALT 22 Alkaline Phosphatase 55 Total Protein 5.9 L Albumin 3.1 L
--- NOTE | 2025-03-09 12:58 | P.PNIM_ITS ---
Progress Note: A&P Assessment and Plan (1) Acute on chronic diastolic congestive heart failure: Code(s): I50.33 - Acute on chronic diastolic (congestive) heart failure Status: Acute (2) Acute on chronic kidney failure: Code(s): N17.9 - Acute kidney failure, unspecified; N18.9 - Chronic kidney disease, unspecified Status: Acute (3) Elevated troponin: Code(s): R79.89 - Other specified abnormal findings of blood chemistry Status: Acute (4) Hypertensive urgency: Code(s): I16.0 - Hypertensive urgency Status: Acute (5) Insulin dependent type 2 diabetes mellitus: Code(s): E11.9 - Type 2 diabetes mellitus without complications; Z79.4 - director food safety (current) use of insulin Status: Acute (6) Obstructive sleep apnea on CPAP: Code(s): G47.33 - Obstructive sleep apnea (adult) (pediatric); Z99.89 - Dependence on other enabling machines and devices Status: Acute Plan Accelerated hypertension - Was on Bumex 1mg BID, hydralazine 50mg TID, irbesartan 300mg daily and nebivolol 20mg daily. BP up to 252/70. Renal duplex negative for renal artery stenosis. TSH normal. Amlodipine switch to nifedipine. Irbesartan and nebivolol continued. Hydralazine increased to 100mg Q8h and Bumex changed to Lasix. Much improved response with the nifedipine although had extra nifedipine yesterday. Overall blood pressure has improved significantly as compared to her admission readings. Nephrology following and appreciate their input. Continue current oral medications. hydralazine IV prn JAMIA/CKD - nephrology on board. Baseline creatinine around 1.6-2.4 last year but higher this year at 2.3-2.7. Creatinine to 3.4 this admission. Urine protein elevated more than 18gm. Plan for renal biopsy. Aspirin on hold CHF acute on chronic diastolic BNP elevated at 6880. Venous duplex negative for DVT. CXR with moderate pulmonary vascular congestion with bilateral pleural effusion right greater than left. Echo with EF 60-65% moderate concentric left ventricular wall thickness diastolic dysfunction abnormal mild pulmonary hypertension [id number] mitral regurgitation Treated with Lasix IV but now changed to oral since fluid status better. Elevated troponin Trend is mild and flat. [place] related to HTN and renal failure. Cardiology consulted and appreciate their input Patient to follow up with Cardiology as outpatient JAMES Patient is noncomliant with CPAP at home. She is tolerating it here. Encouraged compliance. DM - Type II The patient's blood glucose was reviewed on 03/09 Glucose remains well controlled. Continue AccuCheks covering with sliding scale. Hypoglycemia protocol available as needed. Continue to monitor Anxiety - recent stressor with loss of Started on Vistaril p.r.n. DVT prophylaxis heparin subQ Code status - full Subjective Date/time seen: 03/09/25 12:58 Interval history: 69yo female with DM, HTN and JAMES here for abnormal labs and elevated blood pressures. Assuming care. Chart reviewed. Staff has noted that the patient has been anxious recently. Her recently . Patient did wear the CPAP last night. She denies any chest pain, shortness of breath or dyspnea on exertion. She is having good urine output. She has noted decreased pedal edema since admission. Exam Narrative: AF 98.7 169/58 50 18 99% ra Gen - NARD Chest - CTA bilaterally, nml RR CV - RRR S1/S2. Tele showing no significant dysrhythmias Abd - Soft, NT/ND, Positive BS Ext -trace-1+ pedal edema Neuro - Alert and oriented. Nonfocal exam. Psych - Nml mood and affect Skin - Warm and dry Objective Data Vital Signs Vital Signs: Vital Signs - 24 hr 03/08/25 15:33 03/08/25 17:40 03/08/25 18:53 Temperature 98 F Pulse Rate 56 L Respiratory Rate 18 Blood Pressure 151/46 H 193/67 H 147/80 H Pulse Oximetry 97 Oxygen Delivery 03/08/25 20:00 03/08/25 20:00 03/08/25 20:00 Temperature 97.8 F Pulse Rate 59 L 57 L Respiratory Rate 16 Blood Pressure 146/49 H Pulse Oximetry 99 Oxygen Delivery Room Air 03/08/25 22:00 03/08/25 23:30 03/08/25 23:56 Temperature 97.8 F Pulse Rate 53 L 56 L 55 L Respiratory Rate 20 16 Blood Pressure 196/44 H Pulse Oximetry 98 98 Oxygen Delivery CPAP 03/09/25 00:00 03/09/25 00:00 03/09/25 01:00 Temperature Pulse Rate 48 L 56 L Respiratory Rate Blood Pressure 121/82 Pulse Oximetry Oxygen Delivery Room Air 03/09/25 02:00 03/09/25 04:00 03/09/25 04:00 Temperature 97.7 F Pulse Rate 49 L 53 L 57 L Respiratory Rate 16 Blood Pressure 150/40 H Pulse Oximetry 100 Oxygen Delivery 03/09/25 04:00 03/09/25 06:00 03/09/25 07:36 Temperature 98 F Pulse Rate 49 L 50 L Respiratory Rate 18 Blood Pressure 144/50 H Pulse Oximetry 97 Oxygen Delivery Room Air 03/09/25 08:00 03/09/25 09:16 03/09/25 10:00 Temperature Pulse Rate 56 L 55 L 46 L Respiratory Rate Blood Pressure Pulse Oximetry Oxygen Delivery 03/09/25 11:37 03/09/25 12:00 Temperature 98.7 F Pulse Rate 56 L 50 L Respiratory Rate 991 H Blood Pressure 169/58 H Pulse Oximetry 99 Oxygen Delivery Intake/Output Intake/Output: Intake & Output 03/06/25 03/07/25 03/08/25 03/09/25 23:59 23:59 23:59 23:59 Intake Total 960 1320 1020 400 Output Total 1875 2250 2200 1300 Balance -915 -930 -1180 -900 Meds/Results Medications: Active Medications Generic Name Dose Route Start Last Admin Trade Name Freq PRN Reason Stop Dose Admin Acetaminophen 650 mg 03/03/25 20:40 03/04/25 02:14 Acetaminophen 325 Mg Tablet PO 650 mg Q4H PRN Administration Mild Pain (1-3) or Fever Ascorbic Acid 250 mg 03/04/25 09:00 03/09/25 09:15 Ascorbic Acid 250 Mg Tablet PO 250 mg QAM SONJA Administration Clonidine HCl 0.1 mg 03/09/25 08:00 03/08/25 18:05 Clonidine Hcl 0.1 Mg Tablet PO 0.1 mg Q12HR PRN Administration systolic BP > 180 Dextrose 12.5 gm 03/03/25 20:40 Dextrose 50% 25 Gm/50 Ml Syringe IV PUSH PRN PRN Hypoglycemia Protocol Ferrous Sulfate 325 mg 03/04/25 09:00 03/09/25 09:15 Ferrous Sulfate [address] BY MOUTH 325 mg QAM SONJA Administration Furosemide 80 mg 03/08/25 17:00 03/09/25 09:15 Furosemide 80 Mg Tablet PO 80 mg BID SONJA Administration Glucagon 1 mg 03/03/25 20:40 Glucagon For Inj 1 Mg Vial IM PRN PRN Hypoglycemia Protocol Glucose 15 gm 03/03/25 20:40 Glucose Oral Gel 15 Gm Of Glucse In 37.5 Gm Tube PO PRN PRN Hypoglycemia Protocol Heparin Sodium (Porcine) 5,000 units 03/04/25 09:00 03/09/25 08:24 Heparin Sodium 5,000 Units/Ml Vial SUB-Q Not Given Q12HR SONJA Hydralazine HCl 10 mg 03/05/25 05:12 03/09/25 00:12 Hydralazine Hcl 20 Mg/Ml Vial IV PUSH 10 mg Q6H PRN Administration Blood Pressure - High Hydralazine HCl 100 mg 03/08/25 18:00 03/09/25 12:10 Hydralazine Hcl 50 Mg Tablet BY MOUTH 100 mg Q6HR SONJA Administration Hydroxyzine Pamoate 25 mg 03/06/25 11:18 03/09/25 09:38 Hydroxyzine Pamoate 25 Mg Capsule PO 25 mg Q4H PRN Administration Itching Dextrose 1,000 mls @ 100 mls/hr 03/03/25 20:40 Dextrose 5% 1,000 Ml IVPB PRN PRN Hypoglycemia Protocol Insulin Aspart 3 - 6 units 03/04/25 08:00 03/09/25 12:18 Insulin Aspart (*Bkc) 100 Units/Ml SUB-Q Not Given TIDWM [facility] Protocol Insulin Aspart 1 - 3 units 03/04/25 21:00 03/08/25 20:53 Insulin Aspart (*Bkc) 100 Units/Ml SUB-Q Not Given HS [facility] Protocol Insulin Glargine 20 units 03/05/25 21:00 03/06/25 21:21 Insulin Glargine (*Bkc) 100 Units/Ml SUB-Q 20 units HS SONJA Administration Irbesartan 300 mg 03/04/25 09:00 03/09/25 09:15 Irbesartan 150 Mg Tablet PO 300 mg DAILY SONJA Administration Nebivolol 20 mg 03/04/25 09:00 03/09/25 09:16 Nebivolol Hcl 5 Mg Tablet PO 20 mg DAILY SONJA Administration Nifedipine 90 mg 03/08/25 09:00 03/09/25 09:16 Nifedipine 30 Mg Tab.Er.24 PO 90 mg QAM SONJA Administration Pravastatin Sodium 10 mg 03/04/25 09:00 03/09/25 09:16 Pravastatin Sodium 10 Mg Tablet BY MOUTH 10 mg DAILY SONJA Administration Sodium Bicarbonate 1,300 mg 03/05/25 12:00 03/09/25 12:10 Sodium Bicarbonate Tab 650 Mg Tablet PO 1,300 mg TIDWM SONJA Administration Vitamin D 50 mcg 03/04/25 09:00 03/09/25 09:15 Cholecalciferol (Vitamin D3) 25 Mcg (1,000 Units) Tablet PO 50 mcg QAM SONJA Administration Radiology Results: ITS Impressions Chest X-Ray 03/03/25 17:45 IMPRESSION: Moderate pulmonary vascular congestion with bilateral pleural effusions, right greater than left. Venous Doppler Study 03/03/25 18:57 IMPRESSION: 1. No deep venous thrombosis. Renal Ultrasound 03/04/25 15:07 IMPRESSION: Left renal cysts. Otherwise, Normal study. Arterial/Peripheral Duplex 03/05/25 12:49 IMPRESSION: 1. No Doppler evidence of renal artery stenosis. Labs Labs: Laboratory Results - last 24 hr 03/08/25 03/08/25 03/09/25 16:13 19:55 04:25 WBC 7.6 RBC 2.91 L Hgb 9.8 L Hct 29.7 L MCV 102.1 H MCH 33.7 MCHC 33.0 RDW 12.9 Plt Count 247 MPV 11.6 H Immature Gran % (Auto) 0.3 Neut % (Auto) 53.3 Lymph % (Auto) 30.6 [place] % (Auto) 10.4 H Eos % (Auto) 4.3 Baso % (Auto) 1.1 Lymph # (Auto) 2.33 [place] # (Auto) 0.8 H Eos # (Auto) 0.3 Baso # (Auto) 0.1 Abs Immat Gran (auto) 0.02 Absolute Neuts (auto) 4.1 Absolute Nucleated RBC 0.000 Nucleated RBC % 0.0 PT 13.0 INR 1.0 APTT 31.5 Sodium 135 L Potassium 4.2 Chloride 101 Carbon Dioxide 28 Anion Gap 6 BUN 46 H Creatinine 3.38 H Estim Creat Clear Calc 17 Estimated GFR 13 L Glucose 122 H POC Capillary Glucose 187 H 183 H Calcium 8.7 Magnesium 2.0 Total Bilirubin 0.3 AST 26 ALT 22 Alkaline Phosphatase 55 Total Protein 5.9 L Albumin 3.1 L 03/09/25 03/09/25 07:40 11:37 WBC RBC Hgb Hct MCV MCH MCHC RDW Plt Count MPV Immature Gran % (Auto) Neut % (Auto) Lymph % (Auto) [place] % (Auto) Eos % (Auto) Baso % (Auto) Lymph # (Auto) [place] # (Auto) Eos # (Auto) Baso # (Auto) Abs Immat Gran (auto) Absolute Neuts (auto) Absolute Nucleated RBC Nucleated RBC % PT INR APTT Sodium Potassium Chloride Carbon Dioxide Anion Gap BUN Creatinine Estim Creat Clear Calc Estimated GFR Glucose POC Capillary Glucose 122 H 123 H Calcium Magnesium Total Bilirubin AST ALT Alkaline Phosphatase Total Protein Albumin
[2025-03-09] MEDS: BUMETANIDE PO 1 MG, BUMETANIDE PO 0.5 MG 1.5 MG PO ×2 (17:34→17:38)
[2025-03-09] MEDS: INSULIN ASPART (*BKC) 100 UNITS/ML SUB-Q (20:35)
[2025-03-10] VITALS (28 sets, daily range): BP systolic 81–172; BP diastolic 32–81; PULSE 49–80; RESP 12–22; TEMP 36.4–37; O2SAT 92–99
[2025-03-10 04:57] LABS: Hematocrit 29.4 % (37.0-47.0); Hemoglobin 9.4 g/dL (12.0-15.0); Immature Granulocyte Percent A 0.4 % (0-0.5); Lymphocytes Absolute Auto 2.23 K/mm3 (0.9-3.2); Mean Corpuscular HGB Conc 32.0 g/dl (32-36); Mean Corpuscular Hemoglobin 33.0 pg (26-34); Mean Corpuscular Volume 103.2 fl (80-100); Nucleated Red Blood Cells Absolute Auto 0.000 K/mm3 (0.0-0.012); Nucleated Red Blood Cells Perc 0.0 % (0.0-0.2); Platelet Count Result 229 k/mm3 (150-375); Red Blood Count 2.85 M/mm3 (4.2-5.4); White Blood Count 7.3 K/mm3 (4.5-10.0)
[2025-03-10 05:02] LABS: Albumin Level 2.9 g/dL (3.5-5.1); Anion Gap 6 mmol/L (4-12); Blood Urea Nitrogen 50 mg/dL (7-17); Calcium 8.7 mg/dL (8.4-10.2); Carbon Dioxide 28 mmol/L (22-30); Chloride 103 mmol/L (98-107); Estimated CRCL calculation 16 ml/min; Estimated Glomerular Filt Rate 13; Glucose 121 mg/dL (65-110); Potassium 4.5 mmol/L (3.4-5.0); Sodium 137 mmol/L (137-145)
[2025-03-10 06:08] LABS: Vitamin B12 252.0 pg/mL (239-931)
--- NOTE | 2025-03-10 08:56 | PCNWS ---
Weekly nutritional screen. Patient is tolerating current Heart healthy diet with adequate intake 100% most all meals. No weight loss reported. No nutritional recommendations at this time.
[2025-03-10] MEDS: NEBIVOLOL HCL 5 MG TABLET 20 MG PO (08:58)
[2025-03-10] MEDS: BUMETANIDE PO 1 MG, BUMETANIDE PO 0.5 MG 1.5 MG PO (08:58)
[2025-03-10] MEDS: ASCORBIC ACID 250 MG TABLET PO (08:59)
[2025-03-10] MEDS: FERROUS SULFATE 325 MG TABLET DR BY MOUTH (08:59)
[2025-03-10] MEDS: SODIUM BICARBONATE TAB 650 MG TABLET 1300 MG PO ×2 (08:59→13:56)
[2025-03-10] MEDS: PRAVASTATIN SODIUM 10 MG TABLET BY MOUTH (08:59)
[2025-03-10] MEDS: IRBESARTAN 150 MG TABLET 300 MG PO (08:59)
[2025-03-10] MEDS: CHOLECALCIFEROL (VITAMIN D3) 25 MCG (1,000 UNITS) TABLET 50 MCG PO (09:00)
[2025-03-10] MEDS: CYANOCOBALAMIN INJ 1,000 MCG/ML VIAL 1000 MCG IM (09:00)
[2025-03-10] MEDS: CYANOCOBALAMIN 1,000 MCG TABLET 1000 MCG PO (09:02)
--- NOTE | 2025-03-10 09:40 | P.PNNP_ITS ---
Progress Note: A&P Assessment and Plan (1) Acute kidney injury: Code(s): N17.9 - Acute kidney failure, unspecified Status: Acute Assessment and Plan: * etiology not clear * element of kidney disease progression? * due to very high BP versus some intrinsic disease other than diabetes or hypertension * however, now complicated with worsening proteinuria and hematuria * tentatively on schedule for renal biopsy today (03/10) * follow trend of repeat labs and UOP (2) Stage 4 chronic kidney disease: Code(s): N18.4 - Chronic kidney disease, stage 4 (severe) Status: Chronic Assessment and Plan: * baseline creatinine running ~ 2.0 - 2.5mg/dl for the last year or so * suspect secondary to diabetes and hypertension based on outpatient evaluation * however, with worsening proteinuria, tentative plan was for a renal biopsy for further assessement (but this was delayed due to her passing) (3) Hypertensive urgency: Code(s): I16.0 - Hypertensive urgency Status: Acute Assessment and Plan: * as noted on admission * was not taking her blood pressure at home so it is not clear how long this had been going on * no evidence of renal artery stenosis by renal duplex * on nifedipine, hydralazine, irbesartan, and nebivolol * titrate hydralazine * could also increase dose/frequency of nifedipine * follow trend of hemodynamics (4) Acute on chronic diastolic congestive heart failure: Code(s): I50.33 - Acute on chronic diastolic (congestive) heart failure Status: Acute Assessment and Plan: * likely due to diastolic dysfunction, pulmonary HTN and possibly proteinuria * worsening renal function likely contributing as well * recent Echo (03/04) noted: * left ventricular systolic function is normal, estimated at 60 - 65% * left ventricular diastolic function is abnormal * mild aortic valve sclerosis * mild to moderate mitral valve regurgitation * mild tricuspid valve regurgitation * mild pulmonary hypertension, estimated pulmonary arterial systolic pressure is 43 mmHg * trace pulmonic regurgitation * continue diuresis (5) Obstructive sleep apnea on CPAP: Code(s): G47.33 - Obstructive sleep apnea (adult) (pediatric); Z99.89 - Dependence on other enabling machines and devices Status: Acute Assessment and Plan: * continue nightly CPAP (6) Type 2 diabetes mellitus: Qualifiers: 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 L Subjective Date/time seen: 03/10/25 09:40 Interval history: Follow-up for acute kidney injury/acute renal failure on chronic kidney disease. Tentatively scheduled for renal biopsy later today; BP seems to be doing better at this time; breathing/respiratory status/swelling/edema have all improved with diuretic therapy; no other acute issues/events overnight or earlier this morning, Exam Narrative: General: elderly but WD/WN female in NAD Heart: normal S1 and S2; no rub Lungs: clear anteriorly Abdomen: soft, nontender, nondistended, positive bowel sounds Extremities: no cyanosis or clubbing; trace edema Skin: no nodules Objective Data Vital Signs Vital Signs: Vital Signs Temp Pulse Resp BP Pulse Ox O2 Del Method FiO2 03/10/25 08:58 54 L 03/10/25 08:00 53 L 03/10/25 07:46 97.5 F L 60 16 149/45 H 92 03/10/25 06:00 52 L 03/10/25 04:32 80 20 97 BiPAP 03/10/25 04:00 97.9 F 49 L 18 172/47 H 99 03/10/25 04:00 51 L 03/10/25 04:00 CPAP 03/10/25 02:00 51 L 03/10/25 00:50 70 22 H 97 CPAP 03/10/25 00:19 75 20 95 CPAP 03/10/25 00:00 53 L 03/10/25 00:00 CPAP 03/09/25 23:35 98.0 F 50 L 16 147/35 H 100 03/09/25 22:00 49 L 03/09/25 20:06 100 20 94 Room Air 21 03/09/25 20:05 100 94 03/09/25 20:00 51 L 03/09/25 20:00 Room Air 03/09/25 20:00 97.5 F L 48 L 16 138/42 L 96 03/09/25 18:38 146/60 H 03/09/25 18:35 48 L 18 113/43 L 100 Intake/Output Intake/Output: Intake & Output 03/07/25 03/08/25 03/09/25 03/10/25 23:59 23:59 23:59 23:59 Intake Total 1320 1020 880 740 Output Total 2250 2200 2500 785 Balance -930 -1180 -1620 -45 Meds/Results Medications: Active Medications Generic Name Dose Route Start Last Admin Trade Name Freq PRN Reason Stop Dose Admin Acetaminophen 650 mg 03/03/25 20:40 03/10/25 18:18 Acetaminophen 325 Mg Tablet PO 650 mg Q4H PRN Administration Mild Pain (1-3) or Fever Ascorbic Acid 250 mg 03/04/25 09:00 03/10/25 08:59 Ascorbic Acid 250 Mg Tablet PO 250 mg QAM SONJA Administration Bumetanide 1 mg/ Bumetanide 0. 1.5 mg 03/10/25 09:00 03/10/25 08:58 5 mg PO 1.5 mg BID SONJA Administration Cyanocobalamin 1,000 mcg 03/10/25 09:00 03/10/25 09:02 Cyanocobalamin 1,000 Mcg Tablet PO 1,000 mcg QAM SONJA Administration Dextrose 12.5 gm 03/03/25 20:40 Dextrose 50% 25 Gm/50 Ml Syringe IV PUSH PRN PRN Hypoglycemia Protocol Ferrous Sulfate 325 mg 03/04/25 09:00 03/10/25 08:59 Ferrous Sulfate [address] BY MOUTH 325 mg QAM SONJA Administration Glucagon 1 mg 03/03/25 20:40 Glucagon For Inj 1 Mg Vial IM PRN PRN Hypoglycemia Protocol Glucose 15 gm 03/03/25 20:40 Glucose Oral Gel 15 Gm Of Glucse In 37.5 Gm Tube PO PRN PRN Hypoglycemia Protocol Hydralazine HCl 10 mg 03/05/25 05:12 03/09/25 00:12 Hydralazine Hcl 20 Mg/Ml Vial IV PUSH 10 mg Q6H PRN Administration Blood Pressure - High Hydroxyzine Pamoate 25 mg 03/06/25 11:18 03/10/25 13:57 Hydroxyzine Pamoate 25 Mg Capsule PO 25 mg Q4H PRN Administration Itching Dextrose 1,000 mls @ 100 mls/hr 03/03/25 20:40 Dextrose 5% 1,000 Ml IVPB PRN PRN Hypoglycemia Protocol Insulin Aspart 3 - 6 units 03/04/25 08:00 03/10/25 17:28 Insulin Aspart (*Bkc) 100 Units/Ml SUB-Q Not Given TIDWM [facility] Protocol Insulin Aspart 1 - 3 units 03/04/25 21:00 03/09/25 20:35 Insulin Aspart (*Bkc) 100 Units/Ml SUB-Q 1 units HS SONJA Administration Protocol Insulin Glargine 20 units 03/05/25 21:00 03/06/25 21:21 Insulin Glargine (*Bkc) 100 Units/Ml SUB-Q 20 units HS SONJA Administration Irbesartan 300 mg 03/04/25 09:00 03/10/25 08:59 Irbesartan 150 Mg Tablet PO 300 mg DAILY SONJA Administration Nebivolol 20 mg 03/04/25 09:00 03/10/25 08:58 Nebivolol Hcl 5 Mg Tablet PO 20 mg DAILY SONJA Administration Nifedipine 90 mg 03/08/25 09:00 03/10/25 09:00 Nifedipine 30 Mg Tab.Er.24 PO 90 mg QAM SONJA Administration Pravastatin Sodium 10 mg 03/04/25 09:00 03/10/25 08:59 Pravastatin Sodium 10 Mg Tablet BY MOUTH 10 mg DAILY SONJA Administration Sodium Bicarbonate 1,300 mg 03/05/25 12:00 03/10/25 17:28 Sodium Bicarbonate Tab 650 Mg Tablet PO Not Given TIDWM SONJA Vitamin D 50 mcg 03/04/25 09:00 03/10/25 09:00 Cholecalciferol (Vitamin D3) 25 Mcg (1,000 Units) Tablet PO 50 mcg QAM SONJA Administration Radiology Results: ITS Impressions Chest X-Ray 03/03/25 17:45 IMPRESSION: Moderate pulmonary vascular congestion with bilateral pleural effusions, right greater than left. Venous Doppler Study 03/03/25 18:57 IMPRESSION: 1. No deep venous thrombosis. Renal Ultrasound 03/04/25 15:07 IMPRESSION: Left renal cysts. Otherwise, Normal study. Arterial/Peripheral Duplex 03/05/25 12:49 IMPRESSION: 1. No Doppler evidence of renal artery stenosis. Renal Biopsy Ultrasound 03/10/25 15:46 IMPRESSION: 1. Technically successful ultrasound-guided core needle biopsy of the right kidney, x2. The patient will then be in the flat, supine position (reverse Trendelenburg is okay) with strict right leg extension for a total of 6 hours prior to mobility to ensure adequate hemostasis. Abdomen/Pelvis CT 03/10/25 16:26 IMPRESSION: Acute hemorrhage from the site of renal biopsy, performed approximately 4 hours earlier. Findings within the inferior vena cava suggestive of severe hypovolemia for which aggressive resuscitation is recommended. Recommend: Transfer to an institution with vascular interventional radiology for coil embolization of the bleeding site in the right kidney. These findings and recommendations were discussed with the patient, Dr. Stark as well as the patient's nurse at the time of examination and interpretation (at 4:20 PM on 03/10/2025). Labs Labs: Laboratory Tests 03/10/25 04:10 WBC 7.3 Hgb 9.4 L Hct 29.4 L Plt Count 229 Sodium 137 Potassium 4.5 Chloride 103 Carbon Dioxide 28 Anion Gap 6 BUN 50 H Creatinine 3.56 H Estim Creat Clear Calc 16 Estimated GFR 13 L Glucose 121 H Calcium 8.7 Phosphorus 5.4 H Albumin 2.9 L Vitamin B12 252.0 Folate 6.7
--- NOTE | 2025-03-10 11:54 | S_PTH ---
PATIENT: Michaela Christian LOC: [facility] U#:[id number] AGE/SX: 69/F ROOM: 209 RE03/04/[address]: Isaias Stark MD : [id number] BED: 01 DIS: 03/10/2025 SPEC #: [id number] RECD: 03/10/25 11:57 STATUS: CHAPIN REFelice #: [id number] CANDIDA: 03/10/25 11:[address]: Samuel Cruz DEPT: [facility] Surgical RECD BY: Camelia Mckeon ENTERED: 03/10/25 11:57 SP TYPE: Surgical OTHR DR: MD Ru Lozoya, MD Susan Li, SENIOR ASIC ENGINEER Tissues: A - Kidney Biopsy Procedures: Gross Exam Level 1 Intraoperative
--- NOTE | 2025-03-10 12:55 | P.OPB_ITS ---
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 Post pics without acute hemorrhage sterile dressing Must be supine / reverse trendelenberg x 6h No movement of R leg x 6h Notify me personally at [phone] or [phone] for any backpain, tachycardia or hy potension. Description of procedure: as above Urine output (mL): 85 Complications: None Condition: Stable Disposition: Floor
--- NOTE | 2025-03-10 14:40 | PC.NURSE ---
Pt put call light on, stated she was feeling dizzy. Was notified by company secretary. Went to room, found pt to be slightly cool and clammy, HR reading as low as 38 on the monitor and sustaining in 30's. This was new for patient. Had a vitals cart in the room so checked a blood pressure which read normal. Pt started to become less responsive and was slurring words. Called company secretary to have Dr. Stark come to the bedside at this time. Pt never lost consciousness. Also called discharge door operator for more hands. Blood glucose was within normal limits. Pt stated she felt like she needed to have a bowel movement. BP dropped to below normal at this time when rechecked. MD ordered a fluid bolus. Pt had another episode of low blood pressure and complaints of dizziness and need to have another bowel movement. Given fluid bolus with improvements shown in blood pressure. Dr. Ozuna notified of hypotension. Stat abd/pelvis ct ordered. Once fluid bolus infused and bp stable pt transported for scan. Provider went over results of CT with pt when downstairs in room and called results to Dr. Stark. Transfer to outside hospital initiated.
--- NOTE | 2025-03-10 14:46 | ECG_ITS ---
Test Date: 2025-03-10 14:50:57 Measurements Intervals [place] Rate: 49 P: 42 NM: 191 QRS: 14 QRSD: 94 T: 76 QT: 512 QTc: 463 Interpretive Statements SINUS BRADYCARDIA NONSPECIFIC T-WAVE ABNORMALITY PROLONGED QT INTERVAL Compared to ECG 03/04/2025 00:07:22 T-wave abnormality now present Prolonged QT interval now present Electronically Signed On 03-10-2025 16:52:54 CDT by Faviola Merino
[2025-03-10] MEDS: SODIUM CHLORIDE 0.9% IV 500 ML 999 ML IV CONT (15:20)
[2025-03-10 16:06] LABS: Hematocrit 27.5 % (37.0-47.0); Hemoglobin 8.9 g/dL (12.0-15.0)
--- NOTE | 2025-03-10 16:26 | P.PNIM_ITS ---
Progress Note: A&P Assessment and Plan (1) Intra-abdominal hematoma: Status: Acute (2) Acute on chronic diastolic congestive heart failure: Code(s): I50.33 - Acute on chronic diastolic (congestive) heart failure Status: Acute (3) Acute on chronic kidney failure: Code(s): N17.9 - Acute kidney failure, unspecified; N18.9 - Chronic kidney disease, unspecified Status: Acute (4) Elevated troponin: Code(s): R79.89 - Other specified abnormal findings of blood chemistry Status: Acute (5) Hypertensive urgency: Code(s): I16.0 - Hypertensive urgency Status: Acute (6) Insulin dependent type 2 diabetes mellitus: Code(s): E11.9 - Type 2 diabetes mellitus without complications; Z79.4 - assistant terminal manager (current) use of insulin Status: Acute (7) Obstructive sleep apnea on CPAP: Code(s): G47.33 - Obstructive sleep apnea (adult) (pediatric); Z99.89 - Dependence on other enabling machines and devices Status: Acute Plan Intra-abdominal hematoma Patient developed HoTN and bradycardia after renal biopsy today. EKG showing sinus bradycardia, nonspecific T wave changes and prolonged QT BP responded to 500mL fluid bolus to 148/45 (79) and HR has improved to 60's. Hgb this morning 9.4 -> 8.9. Radiologist was called by RN and she ordered CT Abd/Pelvis without contrast showing increased attenuation caudal to the right kidney consistent with hemorrhage measuring 10.9 cm with a mass effect on the kidney causing anterior migration of the right kidney and right renal vein. Discussed with radiologist who recommended patient be transferred to higher level of care in care patient needs coiling. Discussed with [facility] and she has been accepted by them in transfer. Monitor BP, HR and Hgb. Transfuse to stable Hgb. Continue NS x 1Liter. Accelerated hypertension Was on Bumex 1mg BID, hydralazine 50mg TID, irbesartan 300mg daily and nebivolol 20mg daily on admission. BP up to 252/70. Renal duplex negative for renal artery stenosis. TSH normal. Amlodipine switch to nifedipine. Irbesartan and nebivolol continued. Hydralazine increased to 100mg Q8h and Bumex changed to Lasix. Much improved overall Nephrology following and appreciate their input. Anti-HTN medications on hold now until BP more stable. JAMIA/CKD - nephrology on board. Baseline creatinine around 1.6-2.4 last year but higher this year at 2.3-2.7. Creatinine to 3.4 this admission. Urine protein elevated more than 18gm. Renal bx performed today. Follow up on results CHF acute on chronic diastolic BNP elevated at 6880. Venous duplex negative for DVT. CXR with moderate pulmonary vascular congestion with bilateral pleural effusion right greater than left. Echo with EF 60-65%, moderate concentric left ventricular wall thickness, abdnormal diastolic dysfunction, mild pulmonary hypertension and [id number] mitral regurgitation Fluid balance -7.5L Treated with Lasix IV but changed to oral since fluid status better. Elevated troponin Trend is mild and flat. [place] related to HTN and renal failure. Cardiology consulted and appreciate their input Patient to follow up with Cardiology as outpatient JAMES Patient is noncomliant with CPAP at home. She is tolerating it here. Encouraged compliance. DM - Type II The patient's blood glucose was reviewed on 03/10 Glucose remains well controlled. Continue AccuCheks covering with sliding scale. Hypoglycemia protocol available as needed. Continue to monitor Anxiety - recent stressor with loss of her Started on Vistaril p.r.n. DVT prophylaxis - SCDs Code status - full Subjective Date/time seen: 03/10/25 16:26 Interval history: 69yo female with DM, HTN and JAMES here for abnormal labs and elevated blood pressures. Called to the room after patient was back from her renal bx. Initally upon returning, her SBP 151 and she received 100mg hydralazine (scheduled med) and 25mg hydroxyzine (prn med). A short time late, she developed bradycardia with HR <40 and then HoTN with BP 84/40 manually with maps in the 40's. She was symptomatic feeling pre-syncopal. No CP. Exam Narrative: AF 97.9 144/52 60 12 95% ra Gen - NARD Chest - CTA bilaterally, nml RR CV - bradycardic, regular. Tele showing bradycardia Abd - Soft, NT/ND, Positive BS Back - no brusing or mass right flank/back area. Ext -trace pedal edema Neuro - Alert and oriented x4. Nonfocal exam. speech was slurred at one point but resolved Skin - Warm and dry Objective Data Vital Signs Vital Signs: Vital Signs - 24 hr 03/09/25 17:40 03/09/25 18:00 03/09/25 18:35 Temperature Pulse Rate 51 L 49 L 48 L Respiratory Rate 18 18 Blood Pressure 166/51 H 113/43 L Pulse Oximetry 98 100 Oxygen Delivery Fraction of Inspired Oxygen 03/09/25 18:38 03/09/25 20:00 03/09/25 20:00 Temperature 97.5 F L Pulse Rate 48 L Respiratory Rate 16 Blood Pressure 146/60 H 138/42 L Pulse Oximetry 96 Oxygen Delivery Room Air Fraction of Inspired Oxygen 03/09/25 20:00 03/09/25 20:05 03/09/25 20:06 Temperature Pulse Rate 51 L 100 100 Respiratory Rate 20 Blood Pressure Pulse Oximetry 94 94 Oxygen Delivery Room Air Fraction of Inspired Oxygen 21 03/09/25 22:00 03/09/25 23:35 03/10/25 00:00 Temperature 98.0 F Pulse Rate 49 L 50 L Respiratory Rate 16 Blood Pressure 147/35 H Pulse Oximetry 100 Oxygen Delivery CPAP Fraction of Inspired Oxygen 03/10/25 00:00 03/10/25 00:19 03/10/25 00:50 Temperature Pulse Rate 53 L 75 70 Respiratory Rate 20 22 H Blood Pressure Pulse Oximetry 95 97 Oxygen Delivery CPAP CPAP Fraction of Inspired Oxygen 03/10/25 02:00 03/10/25 04:00 03/10/25 04:00 Temperature Pulse Rate 51 L 51 L Respiratory Rate Blood Pressure Pulse Oximetry Oxygen Delivery CPAP Fraction of Inspired Oxygen 03/10/25 04:00 03/10/25 04:32 03/10/25 06:00 Temperature 97.9 F Pulse Rate 49 L 80 52 L Respiratory Rate 18 20 Blood Pressure 172/47 H Pulse Oximetry 99 97 Oxygen Delivery BiPAP Fraction of Inspired Oxygen 03/10/25 07:46 03/10/25 08:00 03/10/25 08:58 Temperature 97.5 F L Pulse Rate 60 53 L 54 L Respiratory Rate 16 Blood Pressure 149/45 H Pulse Oximetry 92 Oxygen Delivery Fraction of Inspired Oxygen 03/10/25 10:00 03/10/25 13:31 03/10/25 13:55 Temperature 97.5 F L Pulse Rate 54 L 61 57 L Respiratory Rate 20 Blood Pressure 156/57 H Pulse Oximetry 94 Oxygen Delivery Fraction of Inspired Oxygen 03/10/25 14:00 03/10/25 14:15 03/10/25 15:05 Temperature 97.9 F Pulse Rate 54 L 53 L Respiratory Rate 12 Blood Pressure 135/60 81/32 L Pulse Oximetry 95 Oxygen Delivery Fraction of Inspired Oxygen Intake/Output Intake/Output: Intake & Output 03/07/25 03/08/25 03/09/25 03/10/25 23:59 23:59 23:59 23:59 Intake Total 1320 1020 880 500 Output Total 2250 2200 2500 785 Balance -930 -1180 -1620 -285 Meds/Results Medications: Active Medications Generic Name Dose Route Start Last Admin Trade Name Freq PRN Reason Stop Dose Admin Acetaminophen 650 mg 03/03/25 20:40 03/04/25 02:14 Acetaminophen 325 Mg Tablet PO 650 mg Q4H PRN Administration Mild Pain (1-3) or Fever Ascorbic Acid 250 mg 03/04/25 09:00 03/10/25 08:59 Ascorbic Acid 250 Mg Tablet PO 250 mg QAM SONJA Administration Bumetanide 1 mg/ Bumetanide 0. 1.5 mg 03/10/25 09:00 03/10/25 08:58 5 mg PO 1.5 mg BID SONJA Administration Cyanocobalamin 1,000 mcg 03/10/25 09:00 03/10/25 09:02 Cyanocobalamin 1,000 Mcg Tablet PO 1,000 mcg QAM SNOJA Administration Dextrose 12.5 gm 03/03/25 20:40 Dextrose 50% 25 Gm/50 Ml Syringe IV PUSH PRN PRN Hypoglycemia Protocol Ferrous Sulfate 325 mg 03/04/25 09:00 03/10/25 08:59 Ferrous Sulfate [address] BY MOUTH 325 mg QAM SONJA Administration Glucagon 1 mg 03/03/25 20:40 Glucagon For Inj 1 Mg Vial IM PRN PRN Hypoglycemia Protocol Glucose 15 gm 03/03/25 20:40 Glucose Oral Gel 15 Gm Of Glucse In 37.5 Gm Tube PO PRN PRN Hypoglycemia Protocol Heparin Sodium (Porcine) 5,000 units 03/04/25 09:00 03/09/25 20:35 Heparin Sodium 5,000 Units/Ml Vial SUB-Q 5,000 units Q12HR SONJA Administration Hydralazine HCl 10 mg 03/05/25 05:12 03/09/25 00:12 Hydralazine Hcl 20 Mg/Ml Vial IV PUSH 10 mg Q6H PRN Administration Blood Pressure - High Hydroxyzine Pamoate 25 mg 03/06/25 11:18 03/10/25 13:57 Hydroxyzine Pamoate 25 Mg Capsule PO 25 mg Q4H PRN Administration Itching Dextrose 1,000 mls @ 100 mls/hr 03/03/25 20:40 Dextrose 5% 1,000 Ml IVPB PRN PRN Hypoglycemia Protocol Insulin Aspart 3 - 6 units 03/04/25 08:00 03/10/25 13:54 Insulin Aspart (*Bkc) 100 Units/Ml SUB-Q Not Given TIDWM SONJA Protocol Insulin Aspart 1 - 3 units 03/04/25 21:00 03/09/25 20:35 Insulin Aspart (*Bkc) 100 Units/Ml SUB-Q 1 units HS SONJA Administration Protocol Insulin Glargine 20 units 03/05/25 21:00 03/06/25 21:21 Insulin Glargine (*Bkc) 100 Units/Ml SUB-Q 20 units HS SONJA Administration Irbesartan 300 mg 03/04/25 09:00 03/10/25 08:59 Irbesartan 150 Mg Tablet PO 300 mg DAILY SONJA Administration Nebivolol 20 mg 03/04/25 09:00 03/10/25 08:58 Nebivolol Hcl 5 Mg Tablet PO 20 mg DAILY SONJA Administration Nifedipine 90 mg 03/08/25 09:00 03/10/25 09:00 Nifedipine 30 Mg Tab.Er.24 PO 90 mg QAM SONJA Administration Pravastatin Sodium 10 mg 03/04/25 09:00 03/10/25 08:59 Pravastatin Sodium 10 Mg Tablet BY MOUTH 10 mg DAILY SONJA Administration Sodium Bicarbonate 1,300 mg 03/05/25 12:00 03/10/25 13:56 Sodium Bicarbonate Tab 650 Mg Tablet PO 1,300 mg TIDWM SONJA Administration Vitamin D 50 mcg 03/04/25 09:00 03/10/25 09:00 Cholecalciferol (Vitamin D3) 25 Mcg (1,000 Units) Tablet PO 50 mcg QAM SONJA Administration Radiology Results: ITS Impressions Chest X-Ray 03/03/25 17:45 IMPRESSION: Moderate pulmonary vascular congestion with bilateral pleural effusions, right greater than left. Venous Doppler Study 03/03/25 18:57 IMPRESSION: 1. No deep venous thrombosis. Renal Ultrasound 03/04/25 15:07 IMPRESSION: Left renal cysts. Otherwise, Normal study. Arterial/Peripheral Duplex 03/05/25 12:49 IMPRESSION: 1. No Doppler evidence of renal artery stenosis. Renal Biopsy Ultrasound 03/10/25 15:46 IMPRESSION: 1. Technically successful ultrasound-guided core needle biopsy of the right kidney, x2. The patient will then be in the flat, supine position (reverse Trendelenburg is okay) with strict right leg extension for a total of 6 hours prior to mobility to ensure adequate hemostasis. Labs Labs: Laboratory Results - last 24 hr 03/09/25 03/09/25 03/10/25 16:50 20:07 04:10 WBC 7.3 RBC 2.85 L Hgb 9.4 L Hct 29.4 L MCV 103.2 H MCH 33.0 MCHC 32.0 RDW 12.5 Plt Count 229 MPV 12.0 H Immature Gran % (Auto) 0.4 Neut % (Auto) 53.4 Lymph % (Auto) 30.4 [place] % (Auto) 10.2 H Eos % (Auto) 4.5 H Baso % (Auto) 1.1 Lymph # (Auto) 2.23 [place] # (Auto) 0.8 H Eos # (Auto) 0.3 Baso # (Auto) 0.1 Abs Immat Gran (auto) 0.03 Absolute Neuts (auto) 3.9 Absolute Nucleated RBC 0.000 Nucleated RBC % 0.0 Sodium 137 Potassium 4.5 Chloride 103 Carbon Dioxide 28 Anion Gap 6 BUN 50 H Creatinine 3.56 H Estim Creat Clear Calc 16 Estimated GFR 13 L Glucose 121 H POC Capillary Glucose 135 H 215 H Calcium 8.7 Phosphorus 5.4 H Albumin 2.9 L Vitamin B12 252.0 Folate 6.7 03/10/25 03/10/25 03/10/25 07:14 13:48 14:47 WBC RBC Hgb Hct MCV MCH MCHC RDW Plt Count MPV Immature Gran % (Auto) Neut % (Auto) Lymph % (Auto) [place] % (Auto) Eos % (Auto) Baso % (Auto) Lymph # (Auto) [place] # (Auto) Eos # (Auto) Baso # (Auto) Abs Immat Gran (auto) Absolute Neuts (auto) Absolute Nucleated RBC Nucleated RBC % Sodium Potassium Chloride Carbon Dioxide Anion Gap BUN Creatinine Estim Creat Clear Calc Estimated GFR Glucose POC Capillary Glucose 115 H 124 H 165 H Calcium Phosphorus Albumin Vitamin B12 Folate 03/10/25 16:01 WBC RBC Hgb 8.9 L Hct 27.5 L MCV MCH MCHC RDW Plt Count MPV Immature Gran % (Auto) Neut % (Auto) Lymph % (Auto) [place] % (Auto) Eos % (Auto) Baso % (Auto) Lymph # (Auto) [place] # (Auto) Eos # (Auto) Baso # (Auto) Abs Immat Gran (auto) Absolute Neuts (auto) Absolute Nucleated RBC Nucleated RBC % Sodium Potassium Chloride Carbon Dioxide Anion Gap BUN Creatinine Estim Creat Clear Calc Estimated GFR Glucose POC Capillary Glucose Calcium Phosphorus Albumin Vitamin B12 Folate
--- NOTE | 2025-03-10 16:29 | P.PNCROSS_ITS ---
Event Note Event Note Event Note: single episode of hypotension after renal Bx today. Pt denies flank or abdominal pain - only a dull ache BP responded to 500cc bolus of fluid. Stat CT abdomen and pelvis demonstrates right sided retroperitoneal hematoma with increased attenuation in the lower pole of the right kidney - site of biopsy. 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 Also - recommend 2 large bore peripheral IV's T&C 2u PRBC's - infusing 1 u now. CBC, chem7 now and serial H&H until transfer. CT findings d/w RN and Dr Stark at the time of examination and interpretation.
[2025-03-10] MEDS: ACETAMINOPHEN 325 MG TABLET 650 MG PO (18:18)
[2025-03-10 21:35] LABS: Hematocrit 25.5 % (37.0-47.0); Hemoglobin 8.0 g/dL (12.0-15.0)
--- NOTE | 2025-03-13 18:39 | P.TS_ITS ---
Transfer Discharge Sum: Prov Provider Date of admission: 03/04/25 08:33 Primary care physician: Susan Chaudhry NP Admitting clinician: Salo Boland MD Consults: 03/04/25 Consult to Physician Routine Comment: Spoke with Susan Trujillo and notified her of consult Consulting Provider: Debbie Collins Reason for consultation: chf exacerbation Has provider been notified: Yes Consult to Physician Routine Comment: Spoke with and notified him of consult Consulting Provider: Ru Horta leather goods maker/MD group to consult: Dr. Horta Reason for consultation: CHF, elveated trop Has provider been notified: Yes Consult to Physician Routine Comment: Spoke with and notified him of consult Consulting Provider: Samuel Cruz leather goods maker/MD group to consult: Dr Cruz Reason for consultation: acute on chronic CKD Has provider been notified: Yes DS: Admitting Diagnosis Discharge Date 03/10/25 Admitting Diagnosis Abnormal labs and elevated blood pressures DS: Discharge Diagnosis Discharge Diagnosis (1) Intra-abdominal hematoma: Status: Acute (2) Hypertensive urgency: Code(s): I16.0 - Hypertensive urgency Status: Acute (3) Acute on chronic kidney failure: Code(s): N17.9 - Acute kidney failure, unspecified; N18.9 - Chronic kidney disease, unspecified Status: Acute (4) Acute on chronic diastolic congestive heart failure: Code(s): I50.33 - Acute on chronic diastolic (congestive) heart failure Status: Acute (5) Elevated troponin: Code(s): R79.89 - Other specified abnormal findings of blood chemistry Status: Acute (6) Obstructive sleep apnea on CPAP: Code(s): G47.33 - Obstructive sleep apnea (adult) (pediatric); Z99.89 - Dependence on other enabling machines and devices Status: Acute (7) Insulin dependent type 2 diabetes mellitus: Code(s): E11.9 - Type 2 diabetes mellitus without complications; Z79.4 - intermediate designer (curr ent) use of insulin Status: Acute Transfer Discharge Sum: Med Medications Active and Home Medications: Home Medications ferrous sulfate 325 mg (65 mg iron) tablet 325 mg PO QAM 12/12/20 [History Confirmed 03/04/25] ascorbic acid (vitamin C) 250 mg chewable tablet 250 mg PO QAM 01/30/23 [History Confirmed 03/04/25] cholecalciferol (vitamin D3) 50 mcg (2,000 unit) capsule 50 mcg PO QAM 02/17/23 [History Confirmed 03/04/25] pen needle, diabetic 29 gauge x 1/2 (BD Ultra-Fine Original Pen Needle) #400 ea 12/11/23 [Rx Confirmed 03/04/25] blood sugar diagnostic (OneTouch Ultra Test strips) #50 ea 03/26/24 [Rx Confirmed 03/04/25] flash glucose scanning reader (FreeStyle Caryn 2 [place]) #1 ea 07/09/24 [Rx Confirmed 03/04/25] pravastatin 10 mg tablet See Rx Instructions .Route .COMPLEX #90 tabs 09/30/24 [Rx Confirmed 03/04/25] aspirin 81 mg tablet,delayed release 81 mg PO DAILY 10/12/24 [History Confirmed 03/04/25] blood-glucose sensor (FreeStyle Caryn 2 Plus Sensor device) #2 ea 10/22/24 [Rx Confirmed 03/04/25] insulin glargine 100 unit/mL (3 mL) subcutaneous pen (Lantus Solostar U-100 Insulin) 40 unit (0.4 mL) subcut QPM #15 mL 12/02/24 [Rx Confirmed 03/04/25] irbesartan 300 mg tablet 300 mg PO DAILY #90 tabs 12/02/24 [Rx Confirmed 03/04/25] nitrofurantoin macrocrystal 50 mg capsule 50 mg PO QHS #90 caps 12/02/24 [Rx Confirmed 03/04/25] nebivolol 20 mg tablet 20 mg PO DAILY #30 tabs 02/08/25 [Rx Confirmed 03/04/25] sodium bicarbonate 650 mg tablet 650 mg PO BIDWMEAL #60 tabs 02/08/25 [Rx Confirmed 03/04/25] bumetanide 1 mg tablet 1 mg PO BID #60 tabs 03/02/25 [Rx Confirmed 03/04/25] hydralazine 50 mg tablet See Rx Instructions .Route .COMPLEX #90 tabs 03/02/25 [Rx Confirmed 03/04/25] insulin aspart U-100 100 unit/mL (3 mL) subcutaneous pen 13 unit (0.13 mL) subcut TID #15 mL 03/02/25 [Rx Confirmed 03/04/25] Transfer Discharge Sum: Hosp Hospital Course Hospital course: Michaela Christian is a 69yo female with DM, HTN and JAMES here for abnormal labs and elevated blood pressures. Please see H&P for details. The following issues were addressed: Intra-abdominal hematoma Patient developed HoTN and bradycardia after a renal biopsy 03/10/25. EKG showing sinus bradycardia, nonspecific T wave changes and prolonged QT BP responded to 500mL fluid bolus to 148/45 (79) and HR has improved to 60's. Hgb this morning 9.4 -> 8.9. Radiologist was called by RN and she ordered CT Abd/Pelvis without contrast showing increased attenuation caudal to the right kidney consistent with hemorrhage measuring 10.9 cm with a mass effect on the kidney causing anterior migration of the right kidney and right renal vein. Discussed with radiologist who recommended patient be transferred to higher level of care in case patient needs coiling. Discussed with [facility] and she has been accepted by them in transfer. Patient was transferred in stable condition Accelerated hypertension Patient was on Bumex 1mg BID, hydralazine 50mg TID, irbesartan 300mg daily and nebivolol 20mg daily on admission. BP up to 252/70. Renal duplex negative for renal artery stenosis. TSH normal. Amlodipine switch to nifedipine. Irbesartan and nebivolol continued. Hydralazine increased to 100mg Q8h and Bumex changed to Lasix. Much improved overall Nephrology following and appreciate their input. Anti-HTN medications held until BP more stable. JAMIA/CKD - nephrology on board. Baseline creatinine around 1.6-2.4 last year but higher this year at 2.3-2.7. Creatinine to 3.4 this admission. Urine protein elevated to 25gm. Renal bx performed for the JAMIA CHF acute on chronic diastolic BNP elevated at 6880. Venous duplex negative for DVT. CXR with moderate pulmonary vascular congestion with bilateral pleural effusion right greater than left. Echo with EF 60-65%, moderate concentric left ventricular wall thickness, abdnormal diastolic dysfunction, mild pulmonary hypertension and [id number] mitral regurgitation Fluid balance -7.5L Treated with Lasix IV but changed to oral since fluid status better. Elevated troponin Trend is mild and flat. [place] related to HTN and renal failure. Cardiology consulted and appreciate their input Patient to follow up with Cardiology as outpatient JAMES Patient is noncompliant with CPAP at home. She was tolerating it here. Encouraged compliance. DM - Type II The patient's blood glucose was monitored with AccuCheks covering with sliding scale. Hypoglycemia protocol available as needed. Continue to monitor Anxiety - recent stressor with loss of her Started on Vistaril p.r.n. Patient was transferred in stable condition. Patient Condition: Serious Time Spent with Patient Time attestation: Total time spent providing and/or coordinating transfer services: 45 minutes Total time spent: Greater than 30 minutes Exam Narrative: AF 97.9 144/52 60 12 95% ra Gen - NARD Chest - CTA bilaterally, nml RR CV - bradycardic, regular. Tele showing bradycardia Abd - Soft, NT/ND, Positive BS Back - no brusing or mass right flank/back area. Ext -trace pedal edema Neuro - Alert and oriented x4. Nonfocal exam. speech was slurred at one point but resolved Skin - Warm and dry DS: Data Data Completed and Pending Pending studies at discharge: Pending at discharge 03/10/25 11:54 Surgical [PTH] Routine
[2025-03-15 08:19] LABS: Methylmalonic Acid. 838 nmol/L (69-390)
--- NOTE | 2025-03-16 09:29 | PC.NURSE ---
MMA is elevated at 838. Pathology shows arterionephrosclerosis and diabetic neuropathy. Results given to Dr. Stark.
== END 2025-03-10 22:15 | disposition short-term general hospital (02) | DRG 291 ==
LOC: ANHED 17:58 → ANHIMU 03-04 05:05
PROVIDERS: Internal Medicine; Internal Medicine Nephrology; Physician Assistant; Student in an Organized Health Care Education/Training Program; Admitting Provider Internal Medicine; Emergency Provider Physician Assistant; PCP Nurse Practitioner; Visit Provider Internal Medicine
DX: I13.0 Hypertensive heart and chronic kidney disease with heart failure and stage 1 through stage 4 chronic kidney disease, or unspecified chronic kidney disease (principal); I50.33 Acute on chronic diastolic (congestive) heart failure; N17.9 Acute kidney failure, unspecified; I24.89 Other forms of acute ischemic heart disease; N99.840 Postprocedural hematoma of a genitourinary system organ or structure following a genitourinary system procedure; N99.820 Postprocedural hemorrhage of a genitourinary system organ or structure following a genitourinary system procedure; I97.191 Other postprocedural cardiac functional disturbances following other surgery; I95.81 Postprocedural hypotension; I16.0 Hypertensive urgency; E11.22 Type 2 diabetes mellitus with diabetic chronic kidney disease; N18.32 Chronic kidney disease, stage 3b; G47.33 Obstructive sleep apnea (adult) (pediatric); E66.9 Obesity, unspecified; E78.5 Hyperlipidemia, unspecified; M17.12 Unilateral primary osteoarthritis, left knee; K21.9 Gastro-esophageal reflux disease without esophagitis; F41.8 Other specified anxiety disorders; E66.01 Morbid (severe) obesity due to excess calories; F41.1 Generalized anxiety disorder; F43.0 Acute stress reaction; Z79.4 Long term (current) use of insulin
CPT/HCPCS: 36415; 36600; 50200; 71046; 74176; 76775; 76942; 80048; 80053; 80069; 82550; 82570; 82607; 82746; 82805; 82948; 83735; 83880; 83921; 84100; 84156; 84300; 84443; 84484; 84540; 85014; 85018; 85025; 85027; 85055; 85610; 85730; 88300; 88329; 93005; 93306; 93970; 93976; 94002; 96374; 99285; A9270; G0378; J0360; J1644; J1815; J1938; J3420; J7040

== ENCOUNTER 2025-03-28 14:35 | Outpatient (CLI) | payer MEDICARE, SELFPAY ==
--- OUTSIDE RECORDS SUMMARY | 2025-03-28 14:48 | XMS_ITS | Clinical Summary ---
Author Organization [facility] Address [address] [place] [id number] Phone Care Team Providers Care Coater Hand Name Role Phone Terence Herrera MD Primary Care Provider [phone] Allergies No known active allergies Medications atorvastatin [...] on file Legal Sex Female 11:43 AM [facility] Gender Identity Not on file Sexual Orientation [...] and Medium Risk (2 of 3 - PCV20 or PCV21) 2004 03/02/2002 Influenza Vaccine (#1) 2025 06/08/2021, 2002 [place] [id number] Care Teams Coater Hand Relationship Specialty Start Date End Date Terence Herrera MD [address] [place] [address] PCP - General Family Medicine 10/08/21
--- OUTSIDE RECORDS SUMMARY | 2025-03-28 14:48 | XMS_ITS | Clinical Summary ---
Author Organization [facility] Address [address] [place] [address] Care Team Providers Care Flume Maker Name Role Phone Jose RamonRandy mcdonnell Primary Care Provider + Source Comments [facility],non-owned Affiliates and Associated Physician Practices is amultiple site organization consisting of ambulatory clinics and hospital sitesin [place], [place] and [place]. This disclosure is being madepursuant to the Care Everywhere program and may not contain all information available regarding this patient. Last updated 18.[employer] [facility] Allergies No known active allergies Medications * Be aware that medications may not be up to date on this document. Alwaysverify current medications with the patient. ascorbic Acid (vitamin C) 250 MG chewable tablet Take 1 (one) tablet by mouth daily with food (chew and swallow) Active aspirin (Aspirin) 81 MG chew tablet Take 1 (one) tablet by mouth once daily (chew and swallow) Active bumetanide (Bumex) 1 MG tablet Take 1 (one) tablet by mouth 2 times daily Active ferrous sulfate 325 (65 FE) MG tablet Take 1 (one) tablet by mouth once daily Active hydrALAZINE (Apresoline) 50 MG tablet Take 1 (one) tablet by mouth 3 times daily Active irbesartan (Avapro) 300 MG tablet Take 1 (one) tablet by mouth once daily Active pravastatin (Pravachol) 10 MG tablet Take 1 (one) tablet by mouth at bedtime Active sodium bicarbonate 650 MG tablet Take 1 (one) tablet by mouth 2 times daily Active acetaminophen (Tylenol) 325 MG tablet Take 2 (two) tablets by mouth every 4 hours as needed Maximum allowable Acetaminophen amount = 4 Grams (4000 mg) / 24 hours. 025 Active insulin glargine (Lantus/Semgle e) 100 units/mL pen Inject 10 (ten) Units subcutaneously every morning 15 mL 1 025 Active NIFEdipine CR 24hr (Adalat CC) 60 MG tabletIndicati ons:Hypertensi on Take 1 (one) tablet by mouth once daily Reasons: High Blood Pressure 30 tablet 1 03/23/20 25 10:02 AM CDT 025 Active vitamin D3 (Cholecalcifer ol) 125 MCG (5000 UT) tablet Take 1 (one) tablet by mouth once daily 30 tablet 1 03/23/20 25 10:02 AM CDT 025 Active hydrOXYzine HCl (Atarax) 25 MG tablet Take 1 (one) tablet by mouth every 6 hours as needed 30 tablet 03/23/20 25 10:02 AM CDT 025 Active Alcohol Swabs USE 1 EACH 3 TIMES DAILY TO CLEAN AREA BEFORE TESTING AND INJECTING. 300 Each 03/23/20 25 10:02 AM CDT 025 Active Insulin Pen Needle 32G X 4 MM MISCIndication s:Type 2 diabetes mellitus with stage 4 chronic kidney disease, with long-term current use of insulin (HCC) Use 1 Each once daily 300 Each 03/23/20 25 10:02 AM CDT 025 Active lancetsIndicat ions:Type 2 diabetes mellitus with stage 4 chronic kidney disease, with long-term current use of insulin (HCC) USE TO TEST BLOOD SUGAR 3 TIME(S) DAILY. (#300 UNITS/EACH= 300 TEST STRIPS). 90 Each 025 Active Blood Glucose Monitoring Suppl (Blood Glucose Monitor System) w/Device KITIndications :Type 2 diabetes mellitus with stage 4 chronic kidney disease, with long-term current use of insulin (HCC) Use 1 Each as directed 1 Each 025 Active blood glucose test stripIndicatio ns:Type 2 Diabetes Mellitus USE TO TEST BLOOD SUGAR 3 TIME(S) DAILY. (#300 UNITS/EACH= 300 TEST STRIPS). Diagnosis code for billing Diabetes. Reasons: Type 2 Diabetes 90 strip 025 Active AVAPRO 150 MG tablet Take 1 Tab by mouth daily. 2024 Discontinued(L ist Clean-Up) ZOCOR 40 MG tablet Take 1 Tab by mouth daily. 2024 Discontinued(L ist Clean-Up) glimepiride (AMARYL) 4 MG tablet Take 1 Tab by mouth 2 times daily. 2024 Discontinued(L ist Clean-Up) MULTI-VITAMIN PO Take 1 Tab by mouth daily. 2024 Discontinued(L ist Clean-Up) rosiglitazone- metformin (AVANDAMET) 4-1000 MG tablet Take 1 Tab by mouth 2 times daily. 60 2 008 2024 Discontinued(L ist Clean-Up) metoprolol succinate XL 24hr (TOPROL XL) 200 MG tablet Take 1 Tab by mouth daily. 30 1 008 2024 Discontinued(L ist Clean-Up) insulin lispro (HumaLOG) 100 UNIT/ML vial Inject 13 (thirteen) Units subcutaneously 3 times daily before meals 2024 Discontinued(C linical Decision) insulin glargine (Lantus/Semgle e) 100 units/ml injection Inject 40 (forty) Units subcutaneously at bedtime 2024 Discontinued(C linical Decision) nebivolol (Bystolic) 20 MG tablet Take 1 (one) tablet by mouth once daily 2024 Discontinued(C linical Decision) blood glucose (FREESTYLE TEST STRIP) test stripIndicatio ns:Type 2 diabetes mellitus with stage 4 chronic kidney disease, with long-term current use of insulin (HCC) Use 1 (one) strip as directed 90 strip 1 025 2024 Discontinued(C linical Decision) Blood Glucose Monitoring Suppl (Blood Glucose Monitor System) w/Device KITIndications :Type 2 diabetes mellitus with stage 4 chronic kidney disease, with long-term current use of insulin (HCC) Use 1 Each as directed 1 Each 025 2024 Discontinued blood glucose test stripIndicatio ns:Type 2 Diabetes Mellitus USE TO TEST BLOOD SUGAR 3 TIME(S) DAILY. (#300 UNITS/EACH= 300 TEST STRIPS). Diagnosis code for billing Diabetes. Reasons: Type 2 Diabetes 90 strip 025 2024 Discontinued lancetsIndicat ions:Type 2 diabetes mellitus with stage 4 chronic kidney disease, with long-term current use of insulin (HCC) USE TO TEST BLOOD SUGAR 3 TIME(S) DAILY. (#300 UNITS/EACH= 300 TEST STRIPS). 90 Each 025 2024 Discontinued Active Problems Problem Noted Date Diagnosed Date Renal hemorrhage, right 03/10/2025 Hypertension 12/23/2007 Type II or unspecified type diabetes mellitus without mention of complication, not stated as uncontrolled 12/23/2007 Screening for cervical cancer 12/23/2007 Overview (12/23/2007): 02/10 Other screening mammogram 12/23/2007 Overview (12/23/2007): 06/13 Encounters Date Type Department Care Team Description 03/11/2025 Travel 03/10/2025 10:51 PM CDT - 03/14/2025 6:47 PM CDT Hospital Encounter [facility] ACUTE [address] [place] [address] Saeed Lee MD Espiritu, Joseph R, MD Buck[place], London Kong III, MD Internal Medicine Discharge Disposition: Home or Self Care from Last 3 Months Immunizations Immunization Administration Dates Next Due INFLUENZA VACCINE 07/25/2003 Pneumococcal 03/02/2002 TD VACCINE 03/02/2002 Family History Medical History Relation Name Comments Arthritis Father Cancer Father breast cancer Diabetes Father Heart Disease Father Diabetes Mother Relation Name Status Comments Father Mother Social History Tobacco Use Types Packs/Day Years Used Date Smoking Tobacco: Never Passive Smoke Exposure: Never Smokeless Tobacco: Never Tobacco Cessation:Counseling Given: No Alcohol Use Standard Drinks/Week Comments No 0 (1 standard drink = 0.6 oz pur e alcohol) AUDIT-C Answer Date Recorded Q1: How often do you have a drink containing alcohol? Never 03/11/2025 Q2: How many drinks containi ng alcohol do you have on a typical day when you are drinking? Patient does not drink Q3: How often do you have si x or more drinks on one occasion? Never 03/11/2025 Overall Financial Resource Strain (CARDIA) Answe r Date Recorded How hard is it for you to pa y for the very basics like food, housing, medical care, and heating? Not very hard 03/11/2025 [facility] - Occupational Stress Questionnaire Answer Date Recorded Do you feel stress - tense, restless, nervous, or anxious, or unable to sleep at night because your mind is troubled all the time - these days? Only a little 03/11/2025 Hunger Vital Sign Answer Date Recorded Within the past 12 months, y ou worried that your food would run out before you got the money to buy more. Never true 03/11/20 25 Within the past 12 months, t he food you bought just didn't last and you didn't have money to get more. Never true 03/11/2025 PRAPARE - Transportation Answer Date Re corded In the past 12 months, has l ack of transportation kept you from medical appointments or from getting medications? No 12/2024 In the past 12 months, has l ack of transportation kept you from meetings, work, or from getting things needed for daily living? No 03/11/2025 Housing Stability Vital Sign Answer Kevin e Recorded In the last 12 months, was t here a time when you were not able to pay the mortgage or rent on time? No 03/11/2025 In the past 12 months, how m any times have you moved where you were living? 0 03/11/2025 At any time in the past 12 m [facility], were you homeless or living in a chcf (including now)? No 03/11/2025 Comments Unknown Sex and Gender Information Value Date Recorded Sex Assigned at Not on file Legal Sex Female 4:11 AM [employer] Gender Identity Not on file Sexual Orientation Not on file Last Filed Vital Signs Vital Sign Reading Time Taken Comments Blood Pressure 151/62 03/14/2025 3:44 PM CDT Pulse 66 03/14/2025 3:44 PM CDT Temperature 37.2 C (99 F) 03/14/2025 3:44 PM CDT Respiratory Rate 18 03/14/2025 3:44 PM CDT Oxygen Saturation 95% 03/14/2025 8:38 AM CDT Inhaled Oxygen Concentration 40% 02/2025 12:41 AM CDT Weight 104.7 kg (230 lb 12.8 oz) 03/14/2025 3:58 AM CDT Height 157.5 cm (5' 2) 03/10/2025 11:0 2 PM CDT Body Mass Index 42.21 03/10/2025 11:02 PM CDT Plan of Treatment Health Maintenance Due Date Last Done Comments BONE DENSITY TESTING 1954 COLOGUARD (AGES 45-75) - COLON CA SCREENING 1954 COLON MONITORING 1954 COLONOSCOPY - COLON CA SCREENING 1954 CT COLONOGRAPHY - COLON CA SCREENING 1954 Colorectal Cancer Screening 1954 FIT - COLON CA SCREENING 1954 FLEX SIG - COLON CA SCREENING 1954 MAMMOGRAM 1954 MEDICARE AWV 12 MONTHS 1954 HEPATITIS C SCREENING 05/03/1972 PNEUMOCOCCAL VACCINE 50+ (1 of 2 - PCV) 1973 ZOSTER VACCINE (1 of 2) 2004 DTAP/TDAP/TD VACCINES (2 - Td or Tdap) 03/02/2012 03/02/2002 Respiratory Syncytial Virus (RSV) Vaccine Pt: or over 60 yrs (1 - Risk 60-74 years 1-dose series) 2014 DIABETES-FOOT EXAM WITH MONOFILAMENT 08/23/2021 DIABETES RETINOPATHY SCREENING 05/01/2023 05/01/2021 COVID-19 VACCINE (2023- season) 2024 12/24/2020, 11/28/2020 DEPRESSION SCREENING 09/08/2024 INFLUENZA VACCINE (#1) 2025 06/08/2021, 2002 DIABETES-HGB A1C 09/11/2025 03/11/2025, , 05/29/2007 DIABETES - URINE PROTEIN SCREENING 03/11/2026 03/11/2025, 03/11/2025, 12/25/2007, Additional history exists DIABETES-SERUM CREATININE 03/13/20262024, 03/12/2025, 03/11/2025, Additional history exists HEPATITIS B VACCINE Aged Out No longe [...] A/C/Y/W VACCINE Aged Out No longer eligible based on patient's age to complete this topic Procedures Procedure Name Priority Date/Time Associated Diagnosis Comments GLUCOSE - POINT OF CARE Routine 03/14/2025 12:32 PM CDT GLUCOSE - POINT OF CARE Routine 03/14/2025 10:48 AM CDT US KIDNEY WITH DOPPLER Routine 10:29 AM CDT Renal hemorrhage, right GLUCOSE - POINT OF CARE Routine 03/13/2025 11:01 PM CDT GLUCOSE - POINT OF CARE Routine 03/13/2025 4:40 PM CDT CBC W AUTO DIFFERENTIAL Routine 03/13/2025 4:00 PM CDT GLUCOSE - POINT OF CARE Routine 03/13/2025 11:52 AM CDT GLUCOSE - POINT OF CARE Routine 03/13/2025 6:08 AM CDT CBC W AUTO DIFFERENTIAL Routine 03/13/2025 3:43 AM CDT BASIC METABOLIC PANEL (CALCIUM TOTAL) AM Draw 03/13/2025 3:43 AM CDT MAGNESIUM BLOOD AM Draw 03/13/2025 3:43 AM CDT PHOSPHORUS BLOOD AM Draw 03/13/2025 3:43 AM CDT GLUCOSE - POINT OF CARE Routine 03/13/2025 12:32 AM CDT GLUCOSE - POINT OF CARE Routine 03/12/2025 5:56 PM CDT CBC W AUTO DIFFERENTIAL Routine 03/12/2025 5:38 PM CDT CULTURE URINE Routine 03/12/2025 1:48 PM CDT PT EVAL AND TREAT Routine 03/12/2025 8:3 0 AM CDT OT EVAL AND TREAT Routine 03/12/2025 8:3 0 AM CDT PTH INTACT W/O CALCIUM Routine 5:44 AM CDT ALBUMIN BLOOD Routine 03/12/2025 5:44 AM CDT VITAMIN D 25-HYDROXY AM Draw 03/12/2025 5:44 AM CDT VITAMIN D 1,25 DIHYDROXY AM Draw 03/12/2025 5:44 AM CDT TSH REFLEX FREE T4 Routine 03/12/2025 5: 44 AM CDT IRON + TRANSFERRIN PANEL Routine 03/12/2025 5:44 AM CDT FERRITIN Routine 03/12/2025 5:44 AM CDT FOLATE Routine 03/12/2025 5:44 AM CDT VITAMIN B12 AM Draw 03/12/2025 5:44 AM CDT METHYLMALONIC ACID BLOOD AM Draw 03/12/2025 5:44 AM CDT CBC W AUTO DIFFERENTIAL Routine 03/12/2025 5:44 AM CDT BASIC METABOLIC PANEL (CALCIUM TOTAL) AM Draw 03/12/2025 5:44 AM CDT MAGNESIUM BLOOD AM Draw 03/12/2025 5:44 AM CDT PHOSPHORUS BLOOD AM Draw 03/12/2025 5:44 AM CDT GLUCOSE - POINT OF CARE Routine 03/12/2025 5:19 AM CDT GLUCOSE - POINT OF CARE Routine 03/11/2025 11:44 PM CDT GLUCOSE - POINT OF CARE Routine 03/11/2025 5:19 PM CDT CBC W AUTO DIFFERENTIAL Routine 03/11/2025 4:29 PM CDT MICROALB/CREAT RATIO URINE RANDOM PANEL Routine 03/11/2025 3:57 PM CDT PROTEIN CREATININE RATIO URINE RANDOM PNL Routine 03/11/2025 2:14 PM CDT PROTEIN URINE RANDOM QUANTITATIVE Routine 03/11/2025 2:14 PM CDT URINALYSIS W/MICROSCOPIC NO CULTURE Routine 03/11/2025 2:14 PM CDT OSMOLALITY URINE BJ 03/11/2025 12:0 9 PM CDT LYTES (NA K CL) URINE RANDOM PANEL Routine 03/11/2025 12:09 PM CDT UREA NITROGEN URINE RANDOM Routine 03/11/2025 12:09 PM CDT CREATININE URINE RANDOM Routine 03/11/2025 12:09 PM CDT GLUCOSE - POINT OF CARE Routine 03/11/2025 11:39 AM CDT B-TYPE NATRIURETIC PEPTIDE STAT 03/11/2025 6:10 AM CDT PHOSPHORUS BLOOD STAT 03/11/2025 6:10 AM CDT MAGNESIUM BLOOD STAT 03/11/2025 6:10 AM CDT BASIC METABOLIC PANEL (CALCIUM TOTAL) STAT 03/11/2025 6:10 AM CDT CBC W/O DIFFERENTIAL STAT 03/11/2025 6:10 AM CDT GLUCOSE - POINT OF CARE Routine 03/11/2025 5:27 AM CDT CBC W/O DIFFERENTIAL Routine 03/11/2025 3:17 AM CDT HEMOGLOBIN A1C Routine 03/11/2025 3:17 AM CDT GLUCOSE - POINT OF CARE Routine 03/11/2025 12:33 AM CDT CBC W/O DIFFERENTIAL Routine 03/11/2025 12:16 AM CDT PHOSPHORUS BLOOD STAT 03/11/2025 12:1 6 AM CDT MAGNESIUM BLOOD STAT 03/11/2025 12:16 AM CDT PTT [facility] STAT 03/11/2025 12:16 AM CDT PT-INR [facility] STAT 03/11/2025 12:16 AM CDT BASIC METABOLIC PANEL (CALCIUM TOTAL) STAT 03/11/2025 12:16 AM CDT from Last 3 Months Results * (ABNORMAL) GLUCOSE - POINT OF CARE (03/14/2025 12:32 PM CDT) Only the most recent of14 resultswithin the time period is included. Pathologist [facility] Glucose WB/POC 175(H) 70 - 99 mg/dL 03/14/2025 12:40 PM CDT [facility] Specimen Type Arterial/C apillary 03/14/2025 12:40 PM CDT [facility] Blood BLOOD SPECIMEN / Unknown 03/14/2025 12:32 PM CDT 03/14/2025 12:40 PM CDT London Carlton III, MD LAB - POINT OF CARE MONICO MURRIETA Final Result [facility] [address] [place] [address], [facility] [phone] * US Kidney With Doppler Complete (03/14/2025 10:29 AM CDT) Anatomical Region Laterality Modality Abdomen Ultrasound 03/14/2025 10:4 2 AM CDT Impressions 03/14/2025 3:26 PM CDT IMPRESSION: 1.Increased RIs in the bilateral kidney, may be suggestive of parenchymal disease versus renal artery stenosis. 2.There are bilateral hypoechoic lesions measuring up to 2 cm and approximately 3 cm measuring, partially exophytic hyperechoic lesions in the bilateral kidneys, indeterminate. For further characterization dedicated, multiphasic CT/MRI study is suggested. Report dictated by Patrick Yo MD (Fitter Hand) IMadeline MD have personally reviewed and interpreted this examination/study. > Interpreting Provider: Madeline Mark MD on 03/14/2025 3:26 PM Narrative 03/14/2025 3:26 PM CDT EXAM: RENAL ULTRASOUND WITH DOPPLER, 03/14/2025 10:29 AM CLINICAL INDICATION: 69 years Female N28.89: Renal hemorrhage, right COMPARISON: None. FINDINGS: The right kidney measures 10 x 5 x 5 cm cm and the left kidney measures 12 x 6 x 4 cm. Both kidneys demonstrate normal cortical thickness. There is a 2 x 1 x 2 cm right renal hypoechoic lesion and a 1 x 1 x 1 cm hypoechoic lesion in the left. There are approximately 3 cm measuring hyperechoic lesions in the bilateral kidneys. For further evaluation dedicated, multiphasic CT/MRI study is suggested. There is no collecting system dilatation or sonographically detectable renal calculi. Doppler evaluation demonstrates resistive indices between 0.75 and 0.89 in the right kidney and between 0.8 and 0.91 in the left kidney. The urinary bladder is partially fluid filled and unremarkable. Procedure Note Madeline Mark MD - 03/14/2025 EXAM: RENAL ULTRASOUND WITH DOPPLER, 03/14/2025 10:29 AM CLINICAL INDICATION: 69 years Female N28.89: Renal hemorrhage, right COMPARISON: None. FINDINGS: The right kidney measures 10 x 5 x 5 cm cm and the left kidney [id number] x 6 x 4 cm. Both kidneys demonstrate normal cortical thickness. There virgilio 2 x 1 x 2 cm right renal hypoechoic lesion and a 1 x 1 x 1 cm hypoechoic lesion in the left. There are approximately 3 cm measuring hyperechoic lesions in the bilateral kidneys. For further evaluation dedicated, multiphasic CT/MRI study is suggested. There is no collecting system dilatation or sonographically detectable renal calculi. Doppler evaluation demonstrates resistive indices between 0.75 and 0.89in the right kidney and between 0.8 and 0.91 in the left kidney. The urinary bladder is partially fluid filled and unremarkable. IMPRESSION: 1.Increased RIs in the bilateral kidney, may be suggestive ofparenchymal disease versus renal artery stenosis. 2.There are bilateral hypoechoic lesions measuring up to 2 cm and approximately 3 cm measuring, partially exophytic hyperechoic lesions in the bilateral kidneys, indeterminate. For further characterization dedicated, multiphasic CT/MRI study is suggested. Report dictated by Patrick Yo MD (Fitter Hand) I, Madeline Mark MD have personally reviewed and interpreted this examination/study. > Interpreting Provider: Madeline Mark MD on 03/14/2025 3:26 PM us Paul Zamarripa MD US ORDERABLES Final Resul t * (ABNORMAL) CBC W AUTO DIFFERENTIAL (03/13/2025 4:00 PM CDT) Only the most recent of5 resultswithin the time period is included. WBC 9.7 4.0 - 10.7 x10E9/L 03/13/2025 4:39 PM [facility] RBC Count 2.46(L) 3.90 - 5.20 x10E12/L 03/13/2025 4:39 PM [facility] Hemoglobin 8.2(L) 11.9 - 15.8 g/dL 03/13/2025 4:39 PM [facility] Hematocrit 25.5(L) 34.8 - 46.1 % 03/13/2025 4:39 PM [facility] MCV 103.7(H) 80.0 - 98.0 fL 03/13/2025 4:39 PM [facility] MCH 33.3 26.7 - 33.6 pg 03/13/2025 4:39 PM [facility] MCHC 32.2 31.7 - 36.3 g/dL 03/13/2025 4:39 PM [facility] RDW-CV 12.3 11.3 - 14.8 % 03/13/2025 4:39 PM [facility] Platelet Count 250 150 - 420 x10E9/L 03/13/2025 4:39 PM [facility] MPV 12.2(H) 7.8 - 11.4 fL 03/13/2025 4:39 PM [facility] Neutrophil % 68.7 41.0 - 74.0 % 03/13/2025 4:39 PM [facility] Lymphocyte % 18.1 17.0 - 47.0 % 03/13/2025 4:39 PM [facility] Monocyte % 9.2 3.0 - 11.0 % 03/13/2025 4:39 PM [facility] Eosinophil % 2.7 0.0 - 7.0 % 03/13/2025 4:39 PM [facility] Basophil % 0.7 0.0 - 1.6 % 03/13/2025 4:39 PM [facility] Immature Granulocytes % 0.6 0.0 - 1.0 % 03/13/2025 4:39 PM [facility] Neutrophil Absolute 6.62 1.60 - 7.50 x10E9/L 03/13/2025 4:39 PM [facility] Lymphocyte Absolute 1.75 1.00 - 4.40 x10E9/L 03/13/2025 4:39 PM [facility] Monocyte Absolute 0.89 0.15 - 1.00 x10E9/L 03/13/2025 4:39 PM [facility] Eosinophil Absolute 0.26 0.00 - 0.60 x10E9/L 03/13/2025 4:39 PM [facility] Basophil Absolute 0.07 0.00 - 0.13 x10E9/L 03/13/2025 4:39 PM [facility] Blood BLOOD SPECIMEN / Unknown 03/13/2025 4:00 PM CDT 03/13/2025 4:29 PM CDT us Paul Zamarripa MD LAB - HEMATOLOGY ORDERABLES Final Result [facility] [address] [place] [address], [facility] [phone] * (ABNORMAL) BASIC METABOLIC PANEL (CALCIUM TOTAL) (03/13/2025 3:43 AM CDT) Only the most recent of4 resultswithin the time period is included. BUN 39(H) 7 - 26 mg/dL 03/13/2025 4:23 AM [facility] Creatinine 3.57(H) 0.56 - 0.96 mg/dL 03/13/2025 4:23 AM [facility] Sodium 140 136 - 145 mmol/L 03/13/2025 4:23 AM [facility] Potassium 4.2 3.5 - 4.5 mmol/L 03/13/2025 4:23 AM [facility] Chloride 109(H) 98 - 107 mmol/L 03/13/2025 4:23 AM [facility] CO2 24 22 - 29 mmol/L 03/13/2025 4:23 AM [facility] Glucose 138(H) 70 - 99 mg/dL 03/13/2025 4:23 AM [facility] Calcium 8.3(L) 8.4 - 10.2 mg/dL 03/13/2025 4:23 AM [facility] Anion Gap 7 6 - 16 03/13/2025 4:23 AM [facility] BUN/Creatinine Ratio 11 7 - 23 03/13/2025 4:23 AM [facility] Osmolality Calculated 302(H) 275 - 295 mOsm/kg 03/13/2025 4:23 AM [facility] eGFR by CKD-EPI 13(L) >=90 mL/min/1.7 3 m2 03/13/2025 4:23 AM [facility] Comment:Estimated Glomerular Filtration Rate (eGFR) calculated using the CKD-EPI Creatinine Equation (2020), per the National Kidney Foundation and [place] [employer]ph[employer] recommendations. Blood BLOOD SPECIMEN / Unknown Venipuncture / Unknown 03/13/2025 3:43 AM CDT 03/13/2025 3:56 AM CDT Saeed Lee MD LAB - CHEMISTRY ORDERABLES Fin al Result Performing Organization Address City/[facility]/ZIP Co de Phone Number [address] [address], [place] [phone] * PHOSPHORUS BLOOD (03/13/2025 3:43 AM CDT) Only the most recent of4 resultswithin the time period is included. Phosphorus 4.1 2.9 - 5.1 mg/dL 03/13/2025 4:23 AM CDT [facility] Blood BLOOD SPECIMEN / Unknown Venipuncture / Unknown 03/13/2025 3:43 AM CDT 03/13/2025 3:56 AM CDT Saeed Lee MD LAB - CHEMISTRY ORDERABLES Fin al Result Performing Organization Address [facility] Co de Phone Number [address] [address], [place] [phone] * MAGNESIUM BLOOD (03/13/2025 3:43 AM CDT) Only the most recent of4 resultswithin the time period is included. Magnesium 2.1 1.6 - 2.6 mg/dL 03/13/2025 4:23 AM CDT [facility] Blood BLOOD SPECIMEN / Unknown Venipuncture / Unknown 03/13/2025 3:43 AM CDT 03/13/2025 3:56 AM CDT us Saeed Lee MD LAB - CHEMISTRY ORDERABLES Fin al Result Performing Organization Address City/[facility]/ZIP Co de Phone Number [address] [address], [facility] [phone] * CULTURE URINE (03/12/2025 1:48 PM CDT) Culture Urine More than 2 organisms seen at >=50,000 CFU/mL. Recollect if clinically indicated. TAI 03/14/2025 2:30 AM CDT [facility] Urine URINE SPECIMEN OBTAINED BY CLEAN CATCH PROCEDURE / Unknown Collection / Unknown 03/12/2025 1:48 PM CDT 03/12/2025 1:53 PM CDT Paul Zamarripa MD LAB - MICROBIOLOGY ORDERABL ES Final Result [facility] [address] [place] [address], [facility] [phone] * (ABNORMAL) PTH INTACT W/O CALCIUM (03/12/2025 5:44 AM CDT) PTH Intact 346.1(H) 8.0 - 77.0 pg/mL 03/12/2025 6:25 AM CDT [facility] Blood BLOOD SPECIMEN / Unknown Venipuncture / Unknown 03/12/2025 5:44 AM CDT 03/12/2025 5:50 AM CDT Paul Zamarripa MD LAB - CHEMISTRY ORDERABLES Final Result [facility] [address] [place] [address], [facility] [phone] * TSH REFLEX FREE T4 (03/12/2025 5:44 AM CDT) TSH 1.533 0.350 - 4.940 uIU/mL 03/12/2025 6:53 AM CDT [facility] Blood BLOOD SPECIMEN / Unknown Venipuncture / Unknown 03/12/2025 5:44 AM CDT 03/12/2025 5:50 AM CDT Paul Zamarripa MD LAB - CHEMISTRY ORDERABLES Final Result Performing Organization Address [facility] Co de Phone Number [address] [address] [phone] * (ABNORMAL) METHYLMALONIC ACID BLOOD (03/12/2025 5:44 AM CDT) Methylmalonic Acid 0.63(H) 0.00 - 0.40 umol/L 03/15/2025 4:57 AM CDT [facility] [employer] ([facility]) Comment: Slight elevation 0.41-0.99 umol/L Consistent with mild vitamin B12 deficiency, renal insufficiency, or intravascular volume contraction. Moderate elevation 1.00-9.99 umol/L Consistent with mild vitamin B12 deficiency. Massive elevation - Greater than or equal to 10 umol/L Consistent with significant vitamin B12 deficiency or with inborn errors of metabolism. INTERPRETIVE INFORMATION: MMA Serum/Plasma, Vitamin B12 Status This test was developed and its performance characteristics determined by [facility]. It has not been cleared or approved by the [place] Food and Drug Administration. This test was performed in a CLIA certified laboratory and is intended for clinical purposes. Performed By: [facility] [address] [place] [address] Poultry Hatchery Laborer: Paul Allen MD, PhD CLIA Number: [id number] Blood BLOOD SPECIMEN / Unknown Venipuncture / Unknown 03/12/2025 5:44 AM CDT 03/12/2025 5:49 AM CDT Paul Zamarripa MD LAB - CHEMISTRY ORDERABLES Final Result [facility] [employer] ([facility]) [address] [place], [place] [address] * (ABNORMAL) VITAMIN D 1,25 DIHYDROXY (03/12/2025 5:44 AM CDT) Vitamin D, 1,25 Dihydroxy 8.1(L) 19.9 - 79.3 pg/mL 03/13/2025 11:29 PM CDT [employer] ([facility]) Comment: INTERPRETIVE INFORMATION: Vitamin D, 1,25-Dihydroxy This test is primarily indicated during patient evaluation for hypercalcemia and renal failure. A normal result does not rule out Vitamin D deficiency. The recommended test for diagnosing Vitamin D deficiency is Vitamin D 25-hydroxy. Performed By: [facility] [address] [place] [address] Poultry Hatchery Laborer: Paul Allen MD, PhD CLIA Number: [id number] Blood BLOOD SPECIMEN / Unknown Venipuncture / Unknown 03/12/2025 5:44 AM CDT 03/12/2025 5:49 AM CDT Paul Zamarripa MD LAB - CHEMISTRY ORDERABLES Final Result Performing Organization Address [facility]/ZIP Co de Phone Number [facility] ([facility]) [address] [place] [address] * (ABNORMAL) VITAMIN D 25-HYDROXY (03/12/2025 5:44 AM CDT) Vitamin D, 25 Hydroxy 21.5(L) 30.0 - 80.0 ng/mL 03/12/2025 6:55 AM CDT [facility] Comment: The recommendations for 25-Hydroxy Vitamin D clinical decision points are as follows: Deficient: <20.0 ng/mL Insufficient: 20.0 - 29.9 ng/mL Sufficient: 30.0 - 100.0 ng/mL Potential Toxicity: >100 ng/mL Reference: The Endocrine Society Clinical Practice Guidelines. 2011 If the 25-Hydroxy Vitamin D results are inconsitent with clinical evidence, it is recommended that follow-up testing using a method such as LC/MS/MS be performed to confirm the result. Blood BLOOD SPECIMEN / Unknown Venipuncture / Unknown 03/12/2025 5:44 AM CDT 03/12/2025 5:50 AM CDT Paul Zamarripa MD LAB - CHEMISTRY ORDERABLES Final Result [facility] [address] [place] [address], [place] [phone] * FOLATE (03/12/2025 5:44 AM CDT) Folate 7.0 7.0 - 31.4 ng/mL 03/12/2025 6:53 AM CDT [facility] Blood BLOOD SPECIMEN / Unknown Venipuncture / Unknown 03/12/2025 5:44 AM CDT 03/12/2025 5:50 AM CDT Paul Zamarripa MD LAB - CHEMISTRY ORDERABLES Final Result [address] [address], [place] [phone] * (ABNORMAL) VITAMIN B12 (03/12/2025 5:44 AM CDT) Pathologist [facility] Vitamin B12 >2,000(H) 213 - 816 pg/mL 03/12/2025 6:55 AM CDT [facility] Blood BLOOD SPECIMEN / Unknown Venipuncture / Unknown 03/12/2025 5:44 AM CDT 03/12/2025 5:50 AM CDT Paul Zamarripa MD LAB - CHEMISTRY ORDERABLES Final Result Performing Organization Address [facility]/ZIP Co de Phone Number [address] [address], [place] [phone] * (ABNORMAL) ALBUMIN BLOOD (03/12/2025 5:44 AM CDT) Pathologist [facility] Albumin 2.2(L) 3.4 - 5.0 g/dL 03/12/2025 6:21 AM CDT [facility] Blood BLOOD SPECIMEN / Unknown Venipuncture / Unknown 03/12/2025 5:44 AM CDT 03/12/2025 5:50 AM CDT Paul Zamarripa MD LAB - CHEMISTRY ORDERABLES Final Result Performing Organization Address City/[facility]/ZIP Co de Phone Number [address] [address], [place] [phone] * (ABNORMAL) IRON + TRANSFERRIN PANEL (03/12/2025 5:44 AM CDT) Iron 20(L) 40 - 150 ug/dL 03/12/2025 6:13 AM CDT [facility] Transferrin 158(L) 174 - 382 mg/dL 03/12/2025 6:13 AM CDT [facility] Transferrin Saturation % 10(L) 16 - 50 % 03/12/2025 6:13 AM CDT [facility] TIBC Calculated 198(L) 240 - 450 ug/dL 03/12/2025 6:13 AM CDT [facility] Blood BLOOD SPECIMEN / Unknown Venipuncture / Unknown 03/12/2025 5:44 AM CDT 03/12/2025 5:49 AM CDT Paul Zamarripa MD LAB - CHEMISTRY ORDERABLES Final Result [address] [address], [place] [phone] * (ABNORMAL) FERRITIN (03/12/2025 5:44 AM CDT) Ferritin 321(H) 13 - 204 ng/mL 03/12/2025 6:29 AM CDT [facility] Blood BLOOD SPECIMEN / Unknown Venipuncture / Unknown 03/12/2025 5:44 AM CDT 03/12/2025 5:49 AM CDT Paul Zamarripa MD LAB - CHEMISTRY ORDERABLES Final Result [address] [address], [place] [phone] * (ABNORMAL) MICROALB/CREAT RATIO URINE RANDOM PANEL (03/11/2025 3:57 PM CDT) Albumin Random Urine >2,000.0 Not Established ug/mL 03/11/2025 5:16 PM CDT [facility] Creatinine Urine 90.35 Not Established mg/dL 03/11/2025 5:16 PM CDT [facility] Urine Albumin/Creati nine Ratio >2,214(H) <30 mg/g 03/11/2025 5:16 PM [facility] Albumin/Creati nine Ratio Urine See Comment <30 mg/g 03/11/2025 5:16 PM T [facility] Comment:Unable to calculate the Urine Albumin/Creatinine Ratio due to one or more analyte concentration(s) being outside the measuring limits of the instrument. Urine URINE SPECIMEN OBTAINED BY CLEAN CATCH PROCEDURE / Unknown Collection / Unknown 03/11/2025 3:57 PM CDT 03/11/2025 4:08 PM CDT us Paul Zamarripa MD LAB - URINE CHEMISTRY ORDER CAROL Final Result [facility] [address] [place] [address], [facility] [phone] * (ABNORMAL) URINALYSIS W/MICROSCOPIC NO CULTURE (03/11/2025 2:14 PM CDT) Color UA Straw Yellow, Straw 03/11/2025 2:45 PM [facility] Clarity UA Turbid(A) Clear 03/11/2025 2:45 PM [facility] Glucose UA Normal Normal 03/11/2025 2:45 PM [facility] Bilirubin UA Negative Negative 03/11/2025 2:45 PM T [facility] Ketone UA Negative Negative 03/11/2025 2:45 PM T [facility] Specific Noel UA 1.012 1.005 - 1.030 03/11/2025 2:45 PM [facility] Blood UA 2+(A) Negative 03/11/2025 2:45 PM [facility] pH UA 7.0 5.0 - 8.0 03/11/2025 2:45 PM [facility] Protein UA 3+(A) Negative 03/11/2025 2:45 PM T [facility] Urobilinogen UA Normal Normal mg/dL 03/11/2025 2:45 PM T [facility] Nitrite UA Negative Negative 03/11/2025 2:45 PM CDT [facility] Leukocyte Esterase UA 250 NOEL/uL(A) Negative 03/11/2025 2:45 PM CDT [facility] RBC UA 51-100(A) 0 - 5 # /hpf 03/11/2025 2:45 PM CDT [facility] WBC UA 21-50(A) 0 - 5 # /hpf 03/11/2025 2:45 PM CDT [facility] Bacteria UA 3+(A) None Seen 03/11/2025 2:45 PM CDT [facility] Squamous Epithelial Cells 3-5 0 - 5 /hpf 03/11/2025 2:45 PM CDT [facility] Urine URINE SPECIMEN OBTAINED BY CLEAN CATCH PROCEDURE / Unknown Collection / Unknown 03/11/2025 2:14 PM CDT 03/11/2025 2:18 PM CDT us Paul Zamarripa MD LAB - URINALYSIS ORDERABLES Final Result [address] [address], [place] [phone] * PROTEIN URINE RANDOM QUANTITATIVE (03/11/2025 2:14 PM CDT) Protein Urine 486 Not Established mg/dL 03/11/2025 3:10 PM T [facility] Comment:Result obtained by fadumo pritchett. Urine URINE SPECIMEN OBTAINED BY CLEAN CATCH PROCEDURE / Unknown Collection / Unknown 03/11/2025 2:14 PM CDT 03/11/2025 2:27 PM CDT us Paul Zamarripa MD LAB - URINE CHEMISTRY ORDER CAROL Final Result [address] [address], [place] [phone] * (ABNORMAL) PROTEIN CREATININE RATIO URINE RANDOM PNL (03/11/2025 2:14 PM CDT) Protein Urine 486 Not Established mg/dL 03/11/2025 5:26 PM CDT [facility] Comment:Result obtained by fadumo pritchett. Creatinine Urine 74.93 Not Established mg/dL 03/11/2025 5:26 PM T [facility] Comment:Result obtained by fadumo pritchett. Protein/Creati nine Ratio Urine 6.49(H) <0.10 03/11/2025 5:26 PM CDT [facility] Urine URINE SPECIMEN OBTAINED BY CLEAN CATCH PROCEDURE / Unknown Collection / Unknown 03/11/2025 2:14 PM CDT 03/11/2025 2:27 PM CDT Paul Zamarripa MD LAB - URINE CHEMISTRY ORDER CAROL Final Result Performing Organization Address City/[facility]/ZIP Co de Phone Number [address] [address], [place] [phone] * UREA NITROGEN URINE RANDOM (03/11/2025 12:09 PM CDT) Urea Nitrogen Random Urine 393 Not Established mg/dL 03/11/2025 12:40 PM CDT [facility] Urine URINE SPECIMEN OBTAINED BY CLEAN CATCH PROCEDURE / Unknown Collection / Unknown 03/11/2025 12:09 PM CDT 03/11/2025 12:13 PM CDT Paul Zamarripa MD LAB - URINE CHEMISTRY ORDER CAROL Final Result Performing Organization Address [facility]/ZIP Co de Phone Number [address] [address], [place] [phone] * OSMOLALITY URINE (03/11/2025 12:09 PM CDT) Osmolality Urine 342 50 - 1,200 mOsm/kg 03/11/2025 3:16 PM CDT [facility] Urine URINE SPECIMEN OBTAINED BY CLEAN CATCH PROCEDURE / Unknown Collection / Unknown 03/11/2025 12:09 PM CDT 03/11/2025 12:13 PM CDT Paul Zamarripa MD LAB - URINE CHEMISTRY ORDER CAROL Final Result [address] [address], [place] [phone] * LYTES (NA K CL) URINE RANDOM PANEL (03/11/2025 12:09 PM CDT) Sodium Urine 73 Not Established mmol/L 03/11/2025 12:40 PM CDT [facility] Potassium Urine 25.3 Not Established mmol/L 03/11/2025 12:40 PM CDT [facility] Chloride Random Urine 33 Not Established mmol/L 03/11/2025 12:40 PM CDT [facility] Urine URINE SPECIMEN OBTAINED BY CLEAN CATCH PROCEDURE / Unknown Collection / Unknown 03/11/2025 12:09 PM CDT 03/11/2025 12:13 PM CDT us Paul Zamarripa MD LAB - URINE CHEMISTRY ORDER CAROL Final Result [address] [address], [place] [phone] * CREATININE URINE RANDOM (03/11/2025 12:09 PM CDT) Creatinine Urine 71.55 Not Established mg/dL 03/11/2025 12:40 PM CDT [facility] Urine URINE SPECIMEN OBTAINED BY CLEAN CATCH PROCEDURE / Unknown Collection / Unknown 03/11/2025 12:09 PM CDT 03/11/2025 12:13 PM CDT Paul Zamarripa MD LAB - URINE CHEMISTRY ORDER CAROL Final Result [address] [address], [place] [phone] * (ABNORMAL) CBC W/O DIFFERENTIAL (03/11/2025 6:10 AM CDT) Only the most recent of3 resultswithin the time period is included. WBC 8.0 4.0 - 10.7 x10E9/L 03/11/2025 6:21 AM [facility] RBC Count 2.27(L) 3.90 - 5.20 x10E12/L 03/11/2025 6:21 AM [facility] Hemoglobin 7.8(L) 11.9 - 15.8 g/dL 03/11/2025 6:21 AM [facility] Hematocrit 22.8(L) 34.8 - 46.1 % 03/11/2025 6:21 AM [facility] MCV 100.4(H) 80.0 - 98.0 fL 03/11/2025 6:21 AM [facility] MCH 34.4(H) 26.7 - 33.6 pg 03/11/2025 6:21 AM [facility] MCHC 34.2 31.7 - 36.3 g/dL 03/11/2025 6:21 AM [facility] RDW-CV 12.6 11.3 - 14.8 % 03/11/2025 6:21 AM [facility] Platelet Count 201 150 - 420 x10E9/L 03/11/2025 6:21 AM [facility] MPV 11.8(H) 7.8 - 11.4 fL 03/11/2025 6:21 AM [facility] Blood BLOOD SPECIMEN / Unknown Venipuncture / Unknown 03/11/2025 6:10 AM CDT 03/11/2025 6:17 AM T us Saeed Lee MD LAB - HEMATOLOGY ORDERABLES Fi nal Result [facility] [address] [place] [address], [facility] [phone] * B-TYPE NATRIURETIC PEPTIDE (03/11/2025 6:10 AM T) BNP 80 <100 pg/mL 03/11/2025 6:51 AM [facility] Comment: A decision threshold of 100 pg/mL has been demonstrated to provide the maximal combination of sensitivity, specificity and predictive value for the diagnosis of congestive heart failure (CHF). Virtually all patients with no evidence of CHF have BNP values less than 100 pg/mL. A BNP value greater than 100 pg/mL is consistent with the diagnosis of CHF in the appropriate clinical setting. In a study of 693 patients (male and female) with diagnosed CHF, the following values were determined based on the NYHA functional classification system: NYHA Functional Class Mean Valule (pg/mL) % >100 pg/mL I 320 58.1 II 432 73.0 III 656 79.0 IV 1635 98.3 Blood BLOOD SPECIMEN / Unknown Venipuncture / Unknown 03/11/2025 6:10 AM CDT 03/11/2025 6:17 AM CDT us Saeed Lee MD LAB - CHEMISTRY ORDERABLES Fin al Result [facility] [address] [place] [address], [facility] [phone] * (ABNORMAL) HEMOGLOBIN A1C (03/11/2025 3:17 AM CDT) Hemoglobin A1c 5.8(H) <=5.6 % 03/11/2025 8:53 AM CDT [facility] Estimated Average Glucose 120 mg/dL 03/11/2025 8:53 AM CDT [facility] Comment: HbA1c Interpretation: Normal : < 5.7% Pre-diabetes: 5.7-6.4% Diabetes: Equal to or greater than 6.5% Test results diagnostic of diabetes should be repeated for confirmation. Treatment target values recommended by ADA and other clinical organizations should be used to evaluate metabolic control in patients. Reference: [place] [employer], Standards of Care in Diabetes -2020 In patients 70 years and older consider HbA1c target range of 7.0-7.5% (Reference: Rodri Montes et al. JAMDA. 2012) The Sebia assay for the measurement of HbA1c is a National Glycohemoglobin Standardization Program (NGSP) certified method. Blood BLOOD SPECIMEN / Unknown Venipuncture / Unknown 03/11/2025 3:17 AM CDT 03/11/2025 3:31 AM CDT Saeed Lee MD LAB - CHEMISTRY ORDERABLES Fin al Result Performing Organization Address [facility]/ZIP Co de Phone Number [address] [address], [facility] [phone] * PTT [facility] (03/11/2025 12:16 AM CDT) APTT 27.6 23.0 - 38.4 Seconds 03/11/2025 1:22 AM [facility] Comment:Suggested therapeuti c range for full dose I.V. unfractionated heparin therapy for venous thromboembolism is 71 to 109 seconds. Blood BLOOD SPECIMEN / Unknown Venipuncture / Unknown 03/11/2025 12:16 AM CDT 03/11/2025 12:29 AM CDT Saeed Lee MD LAB - COAGULATION ORDERABLES F inal Result Performing Organization Address [facility] de Phone Number [address] [address], [facility] [phone] * PT-INR [facility] (03/11/2025 12:16 AM CDT) PT 13.7 12.1 - 14.8 Seconds 03/11/2025 1:22 AM [facility] INR 1.1 See Comment 03/11/2025 1:22 AM T [facility] Comment:The suggested therap eutic range for standard coumadin (warfarin) therapy is an INR of 2.0-3.0. For high-risk patients (Mechanical Mitral Valve Prosthesis, etc.), the suggested prophylactic therapeutic range is an INR of 2.5-3.5. Blood BLOOD SPECIMEN / Unknown Venipuncture / Unknown 03/11/2025 12:16 AM CDT 03/11/2025 12:29 AM CDT Saeed Lee MD LAB - COAGULATION ORDERABLES F inal Result Performing Organization Address [facility]/ZIP Co de Phone Number [address] [address], [facility] [phone] from Last 3 Months Insurance [facility] [employer] MEDICARE SELF PAY NO INSURANCE Member Subscriber Plan / Payer (Ef fective for All Dates) Name:GinoMichaela vasquez Member ID:Not on file Relation to Subscriber:Not on file Name:GINOMICHAELA VASQUEZ Subscriber ID:Not on file (Home) Address: [place] [address] Payer ID:Not on file Group ID:Not on file Type:Self Pay Address: [place], [place] Advance Directives * Full Code (Latest Code Status on File) Date Activated Date Inactivated Comments 03/10/2025 11:33 PM 03/14/2025 7:52 PM Care Teams Flume Maker Relationship Specialty Start Date End Date Randy Martinez DO [address] [place] [id number] PCP - General 12/23/07
--- OUTSIDE RECORDS SUMMARY | 2025-03-28 14:48 | XMS_ITS | Encounter Summary ---
Author Organization [facility] Healthcare Address [address] [place] [address] Care Team Providers Care Business Continuity Planning Director Name Role Phone Lyle Lancaster DO Primary Care Provider [phone] Encounter Details Date Type Department Care Team (Late st Contact Info) Description 03/05/2025 Orders Only [facility] Health Information Management [address] [place] [address] Scanning, Provider Social History Tobacco Use Types Packs/Day Years Used Date Smoking Tobacco: Never Smokeless Tobacco: Never Personal Safety Answer Date Recorded Getting School Help Needed Not on file 08/19 Comments Unknown Sex and Gender Information Value Date Recorded Sex Assigned at Not on file Legal Sex Female 9:11 AM ASSET PROTECTION ASSOCIATE Gender Identity Not on file Sexual Orientation Not on file documented as of this encounter Plan of Treatment Not on file documented as of this encounter Procedures Procedure Name Priority Date/Time Associated Diagnosis Comments SCAN - RADIOLOGY/IMAGING 03/05/2025 documented in this encounter Results * SCAN - RADIOLOGY/IMAGING (03/05/2025) Anatomical Region Laterality Modality Other us Provider Scanning Final Result documented in this encounter Visit Diagnoses Not on filedocumented in this encounter Care Teams Business Continuity Planning Director Relationship Specialty Start Date End Date Lyle Lancaster DO PCP - General Family Medicine 11/09/21 documented as of this encounter
--- OUTSIDE RECORDS SUMMARY | 2025-03-28 14:48 | XMS_ITS | Clinical Summary ---
Author Organization [facility] Address [address] [place] [address] Care Team Providers Care Clinical Trials Manager Name Role Phone Anisha Lyle HOSKINS Primary Care Provider [phone] Allergies No known active allergies Medications ferrous [...] optometry Assessment & Plan (08/19/2023 11:33 AM CIGAR HEAD PERFORATOR): OD noncrntral edema almost resolved OS last inj IVO in December 2022 with dramatic improvement in DME DRCR discussed Assessment & Plan (12/31/2022 11:24 AM CDT): Last SUN 01/2022 Last ozurdex 08/2022 Now 4 months since last ozurdex with worsened edema and subjectively worse vision left eye (OS). IOP controlled on alphagan TID OS Consider repeat IVO OS today but will bring back shoe operator at 1-2 months to assess response. Assessment & Plan (08/20/2022 8:55 AM CIGAR HEAD PERFORATOR): Last SUN 01/2022 Last ozurdex 04/2022 Now [...] incidence. Assessment & Plan (09/11/2021 9:07 AM CIGAR HEAD PERFORATOR): OD stable with minimal NCI-DME OS with persistent CI-DME s/p focal 05/22/21 and now 7 week s/p DESTINY for DME. Also received focal laser OS prior to last inj Consider repeat DESTINY OS today Assessment & Plan (07/24/2021 8:50 AM CIGAR HEAD PERFORATOR): Hx of antiVEGF both eyes (OU) in [place] OD: trace noncentral DME with great vision. Rec cont observation. OS: s/p focal 05/22/21. Worsened center-involved DME. Recommend anti-VEGF injection. Assessment & Plan (05/01/2021 9:13 AM CDT): Hx of antiVEGF both eyes (OU) in [place] Stable mild non-proliferative diabetic retinopathy (NPDR) with [...] OU Assessment & Plan (11/07/2020 9:12 AM CIGAR HEAD PERFORATOR): Discussed with patient Protocol V discussed Assessment & Plan (10/10/2020 11:57 AM CIGAR HEAD PERFORATOR): Previously managed by Dr. Domingo Hernandez in [place] DME OU. Treated with DESTINY q8w OD [...] time Assessment & Plan (10/10/2020 11:56 AM CIGAR HEAD PERFORATOR): Discussed with patient May contribute to DME Encounters Date Type Department Care Team Description 03/14/2025 Orders Only [facility] Cardiology [address] [place] [phone] Mitul Stanley MD 03/07/2025 Telephone [facility] Cardiology [address] [place] [address] Mitul Stanley MD 03/05/2025 Orders Only [facility] Health Information Management [address] [place] [address] Scanning, Provider from Last 3 Months Surgical History Surgery Date Site/Laterality Comments CATARACT [...] on file Legal Sex Female 9:11 AM CIGAR HEAD PERFORATOR Gender Identity Not on file Sexual Orientation [...] , 04/10/2022, Additional history exists Influenza Vaccine (#1) 2025 , 06/08/2021, 07/25/2003 Procedures Procedure Name Priority Date/Time Associated Diagnosis Comments CARDIOLOGY DOCUMENT SCAN Routine 03/06/2025 3:52 PM CDT SCAN - RADIOLOGY/IMAGING 03/05/2025 from Last 3 Months Results * Cardiology Document Scan (03/06/2025 3:52 PM CDT) Anatomical Region Laterality Modality Other us Mitul Stanley MD CV CARDIAC SERVICES PROCEDURES F inal Result * SCAN - RADIOLOGY/IMAGING (03/05/2025) Anatomical Region Laterality Modality Other us Provider Scanning Final Result from Last 3 Months Insurance [employer] MEDICARE SUPPLEMENT INSURANCE [employer] OPEN ACCESS [employer] MEDICARE SUPPLEMENT INSURANCE Care Teams Clinical Trials Manager Relationship Specialty Start Date End Date Lyle Lancaster DO PCP - General Family Medicine 11/09/21
--- OUTSIDE RECORDS SUMMARY | 2025-03-28 14:48 | XMS_ITS | Referral Summary ---
Author Organization [facility] Address [address] [place] [address] Care Team Providers Care Chemical Plant Worker Name Role Phone Lyle Lancaster Primary Care Provider [phone] Encounters Date Type Department Care Team Description 03/14/2025 Orders Only [facility] Medical Group Cardiology [address] [address] Mitul Stanley MD 03/07/2025 Telephone [facility] Medical [facility] Cardiology [address] [facility] [address] [place] [address] Mitul Stanley MD 03/05/2025 Orders Only [facility] Health Information Management [address] [place] [address] Scanning, Provider from Last 3 Months Allergies No known active allergies Medications ferrous [...] optometry Assessment & Plan (08/19/2023 11:33 AM SLOTS MANAGER): OD noncrntral edema almost resolved OS last inj IVO in December 2022 with dramatic improvement in DME DRCR discussed Assessment & Plan (12/31/2022 11:24 AM CDT): Last SUN 01/2022 Last ozurdex 08/2022 Now 4 months since last ozurdex with worsened edema and subjectively worse vision left eye (OS). IOP controlled on alphagan TID OS Consider repeat IVO OS today but will bring plywood layup line back feeder at 1-2 months to assess response. Assessment & Plan (08/20/2022 8:55 AM SLOTS MANAGER): Last SUN 01/2022 Last ozurdex 04/2022 Now [...] incidence. Assessment & Plan (09/11/2021 9:07 AM SLOTS MANAGER): OD stable with minimal NCI-DME OS with persistent CI-DME s/p focal 05/22/21 and now 7 week s/p DESTINY for DME. Also received focal laser OS prior to last inj Consider repeat DESTINY OS today Assessment & Plan (07/24/2021 8:50 AM SLOTS MANAGER): Hx of antiVEGF both eyes (OU) in [place] OD: trace noncentral DME with great vision. Rec cont observation. OS: s/p focal 05/22/21. Worsened center-involved DME. Recommend anti-VEGF injection. Assessment & Plan (05/01/2021 9:13 AM CDT): Hx of antiVEGF both eyes (OU) in [place] Stable mild non-proliferative diabetic retinopathy (NPDR) with [...] OU Assessment & Plan (11/07/2020 9:12 AM SLOTS MANAGER): Discussed with patient Protocol V discussed Assessment & Plan (10/10/2020 11:57 AM SLOTS MANAGER): Previously managed by Dr. Domingo Hernandez in [place] DME OU. Treated with DESTINY q8w OD [...] time Assessment & Plan (10/10/2020 11:56 AM SLOTS MANAGER): Discussed with patient May contribute to DME Social History Tobacco Use Types Packs/Day Years Used Date Smoking Tobacco: Never Smokeless Tobacco: Never Personal Safety Answer Date Recorded Getting School Help Needed Not on file 08/19 Comments Unknown Sex and Gender Information Value Date Recorded Sex Assigned at Not on file Legal Sex Female 9:11 AM SLOTS MANAGER Gender Identity Not on file Sexual Orientation Not on file Plan of Treatment Not on file Procedures Procedure Name Priority Date/Time Associated Diagnosis Comments CARDIOLOGY DOCUMENT SCAN Routine 03/06/2025 3:52 PM CDT SCAN - RADIOLOGY/IMAGING 03/05/2025 from Last 3 Months Results * Cardiology Document Scan (03/06/2025 3:52 PM CDT) Anatomical Region Laterality Modality Other Mitul Stanley MD CV CARDIAC SERVICES PROCEDURES F inal Result * SCAN - RADIOLOGY/IMAGING (03/05/2025) Anatomical Region Laterality Modality Other Provider Scanning Final Result from Last 3 Months Insurance GENERIC COPAY ASSIST [employer]IG[employer] MEDICARE SUPPLEMENT INSURANCE CIG [facility] MEDIC[facility] SUPPLEMENT INSURANCE Care Teams Chemical Plant Worker Relationship Specialty Start Date End Date Lyle Lancaster DO PCP - General Family Medicine 11/09/21
--- OUTSIDE RECORDS SUMMARY | 2025-03-28 14:48 | XMS_ITS | Patient Health Record ---
Author Organization [facility] Address [address] [place] [address] Care Team Providers Care Machinist Supervisor Outside Name Role Phone Gale Sweeney PA-C Primary Care Provider Rashad Blue Unavailable [phone] Reason For Referral No Information Medications Medication [...] Notes Problem Dermatochalasis of both upper eyelids (79494619314884673) Dermatochalasis of both upper eyelids (H02.831) Active confirmed Problem Artificial lens present (finding) (387074749) Pseudophakia, both eyes (Z96.1) Active confirmed Problem Long-term current use of insulin (899357155) Insulin long-term use (Z79.4) Active confirmed Problem Presbyopia (70788964) Bilateral presbyopia (H52.4) Active confirmed Problem Mild nonproliferative retinopathy due to type 2 diabetes mellitus (344897924621284) Type 2 diabetes mellitus with mild nonproliferative diabetic retinopathy with macular edema, 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
[2025-03-28 19:40] LABS: Anion Gap 5 mmol/L (4-12); Blood Urea Nitrogen 38 mg/dL (7-17); Calcium 8.8 mg/dL (8.4-10.2); Carbon Dioxide 23 mmol/L (22-30); Chloride 109 mmol/L (98-107); Estimated Glomerular Filt Rate 17; Glucose 113 mg/dL (65-110); Potassium 3.3 mmol/L (3.4-5.0); Sodium 137 mmol/L (137-145)
== END 2025-03-28 14:36 | disposition home or self-care (01) ==
LOC: ANHGOSHLAB 14:37
PROVIDERS: PCP Nurse Practitioner; Visit Provider Internal Medicine Nephrology
DX: N17.9 Acute kidney failure, unspecified (principal); N18.9 Chronic kidney disease, unspecified
CPT/HCPCS: 36415; 80048

== ENCOUNTER 2025-04-22 09:13 | Outpatient (CLI) | payer MEDICARE, SELFPAY ==
--- OUTSIDE RECORDS SUMMARY | 2025-04-22 09:18 | XMS_ITS | Continuity of Care Document ---
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, [place], [id number], [place]. tel:[phone] [facility], [address], [place], [id number], [place] tel:[phone] [facility] DM with DR and Edema (chief complaint) DM, type 2, mild background retinopathy w/ macular edema, bilateral Dec-[address], [place], [id number], [place]. tel:[phone] [facility], [address], [place], [id number], [place] tel:[phone] [facility] Dm with DR and edema (chief complaint) DM, type 2, mild background retinopathy w/ macular edema, bilateral Nov- 0- [address], [place], [id number], [place]. tel:[phone] [facility], [address], [place], [id number], [place] tel:[phone] [facility] decreased vision (chief complaint) DM, type 2, mild background retinopathy w/ macular edema, bilateral Oct-[address], [place], [id number], [place]. tel:[phone] [facility], [address], [place], [id number], [place] tel:[phone] [facility] DM with mild DR and macular edema (chief complaint) DM, type 2, mild background retinopathy w/ macular edema, bilateral Sep-[address], [place], [id number], [place]. tel:[phone] [facility], [address], [place], [id number], [place] tel:[phone] [facility] diabetic eye exam (chief complaint) DM, type 2, mild background retinopathy w/ macular edema, bilateralPost erior Capsule Opacification , left eye Mar- [address], [place], [id number], [place]. tel:[phone] [facility], [address], [place], [id number], [place] tel:[phone] [facility] DM (chief complaint) DM, type 2, mild background retinopathy w/ macular edema, bilateralPost erior Capsule Opacification , left eye [address], [place], [id number], [place]. tel:[phone] [facility], [address], [place], [id number], [place] tel:[phone] [facility] DM w/ mac edema (chief complaint) DM, type 2, mild background retinopathy w/ macular edema, bilateral Nov- [address], [place], [id number], [place]. tel:[phone] [facility], [address], [place], [id number], [place] tel:[phone] [facility] DME (chief complaint) DM, type 2, mild background retinopathy w/ macular edema, bilateral Feb-[address], [place], [id number], [place]. tel:[phone] [facility], [address], [place], [id number], [place] tel:[phone] [facility] DM, type 2, mild background retinopathy w/ macular emeka (chief complaint) DM, type 2, mild background retinopathy w/ macular edema, bilateral Dec-[address], [place], [id number], [place]. tel:[phone] [facility], [address], [place], [id number], [place] tel:[phone] [facility] diabetic eye exam (chief complaint) DM, type 2, mild background retinopathy w/ macular edema, bilateral Jul- [address], [place], [id number], [place]. tel:[phone] [facility], [address], [place], [id number], [place] tel:[phone] [facility] diabetic eye exam (chief complaint) DM, type 2, mild background retinopathy w/ macular edema, bilateral Oct-[address], [place], [id number], [place]. tel:[phone] [facility], [address], [place], [id number], [place] tel:[phone] [facility] diabetic eye exam (chief complaint) DM, type 2, mild background retinopathy w/ macular edema, bilateral [address], [place], [id number], [place]. tel:[phone] [facility], [address], [place], [id number], [place] tel:[phone] [facility] diabetic eye exam (chief complaint) DM, type 2, mild background retinopathy w/ macular edema, bilateral [address], [place], [id number], [place]. tel:[phone] [facility], [address], [place], [id number], [place] tel:[phone] [facility] DM w/ mac edema (chief complaint) DM, type 2, mild background retinopathy w/ macular edema, bilateral [address], [place], [id number], [place]. tel:[phone] [facility], [address], [place], [id number], [place] tel:[phone] [facility] diabetic eye exam (chief complaint) DM, type 2, mild background retinopathy w/ macular edema, bilateral [address], [place], [id number], [place]. tel:[phone] [facility], [address], [place], [id number], [place] tel:[phone] [facility] diabetic eye exam (chief complaint) DM, type 2, mild background retinopathy w/ macular edema, bilateral Oct- [address], [place], [id number], [place]. tel:[phone] [facility], [address], [place], [id number], [place] tel: [phone] [facility] diabetic eye exam (chief complaint) DM, type 2, mild background retinopathy w/ macular edema, bilateral [address], [place], [id number], [place]. tel:[phone] [facility], [address], [place], [id number], [place] tel:[phone] [facility] diabetic eye exam (chief complaint) DM, type 2, mild background retinopathy w/ macular edema, bilateral [address], [place], [id number], [place]. tel:[phone] [facility], [address], [place], [id number], [place] tel:[phone] [facility] diabetic eye exam (chief complaint) DM, type 2, mild background retinopathy w/ macular edema, bilateral Nov-1 3-[address], [place], [id number], [place]. tel:[phone] [facility], [address], [place], [id number], [place] tel:[phone] [facility] DM with macular edema (chief complaint) DM, type 2, mild background retinopathy w/ macular edema, bilateral Oct-1 5-[address], [place], [id number], [place]. tel:[phone] [facility], [address], [place], [id number], [place] tel:[phone] [facility] diabetic eye exam (chief complaint) DM, type 2, mild background retinopathy w/ macular edema, bilateralPost erior Capsule Opacification , left eye Oct-1 0-[address], [place], [id number], [place]. tel:[phone] [facility], [address], [place], [id number], [place] tel:[phone] [facility] diabetic eye exam (chief complaint) DM, type 2, mild background retinopathy w/ macular edema, bilateral Apr-0 6-[address], [place], [id number], [place]. tel:[phone] [facility], [address], [place], [id number], [place] tel:[phone] [facility] diabetic eye exam (chief complaint) DM, type 2, mild background retinopathy w/ macular edema, bilateral Dec-0 1-[address], [place], [id number], [place]. tel:[phone] [facility], [address], [place], [id number], [place] tel:[phone] [facility] diabetic eye exam (chief complaint) DM, type 2, mild background retinopathy w/ macular edema, bilateral [address], [place], [id number], [place]. tel:[phone] Family History Family Member Type Diagnosis Age At Onset No Information Payers Payer name Insurance type Covered green party ID Mauri zuluaga(s) Kerlink [id number] CI [id number] NG Advantage-pay Card Program CI [id number] Social History Type Description Quantity Date Captured [...] edema OU.- Planned DESTINY OD today - [facility] OS: 07/26/2020 decreased vision The 65 year [...] female presents for evaluation of DM with OUTREACH REPRESENTATIVE & ME in the right eye and [...] for evaluation of diabetic eye exam with OUTREACH REPRESENTATIVE and macular edema in the right eye [...] the right eye and left eye. Mild OUTREACH REPRESENTATIVE with edema OU.DESTINY OU DM with macular [...] stable. No complaints. Referred by Dr. Godoy ([place], [place]). was told there was swelling in the back of the eye to diabetes. Was given Ketorolac to use 2-3 times a day. BS - [id number] - Last A1C was 7.7 (05/21/2007) Functional [...] Next appt with Dr. Correa's office at [facility] in [place] 10/10/20 (4 weeks from today). Given excellent BCVA OD, could consider observation or other regimen in an attempt to decrease her number of injections OD.OS: SUN OS today; continue q4 weeks as central DME continues to improve. Switched to Eylea OS 06/30/20 with good response. Next appt with Dr. Correa's office 10/10/20 (4 weeks from today). Patient is moving to [place] this month (September 2020). Has appointment with Dr. Mike Correa at [facility] in [facility] on 10/10/20. [...] weeks on 09/12/20[facility] [place] [facility] [place], recommend [facility] call [facility] Retinal department to set up appointment to [...] next due 08/08/20Patient will be moving to [facility] in September, recommend patient call [facility] Retinal department to set up appointment to [...] in 4 weeks.DESTINY OD: next due on 07/12/2020.[id number] paperwork filled out/scanned today. Related to DM, [...] macular edema, bilateral Return in 8 [facility] Hernandez for mac OCT, [...] Opacification, left eye Return in [facility] Hernandez for mac OCT, [...] loss. 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 Domingo Hernanedz for dilated exam , OCT (mac). Related [...]
--- OUTSIDE RECORDS SUMMARY | 2025-04-22 09:18 | XMS_ITS | Clinical Summary ---
Author Organization [facility] Address [address] [place] [address] Phone Care Team Providers Care Lozenge Maker Name Role Phone Terence Herrera MD Primary Care Provider [phone] Allergies No known active allergies Medications atorvastatin [...] Vaccine (#1) 2025 06/08/2021, 2002 Insurance [employer] Care Teams Lozenge Maker Relationship Specialty Start Date End Date Terence Herrera MD [address] [place] [address] PCP - General Family Medicine 10/08/21
--- OUTSIDE RECORDS SUMMARY | 2025-04-22 09:18 | XMS_ITS | Encounter Summary ---
Author Organization [facility] Address [address] [place] [address] Care Team Providers Care Proced Tech Name Role Phone Lyle Lancaster DO Primary Care Provider [phone] Encounter Details Date Type Department Care Team (Late st Contact Info) Description 03/05/2025 Orders Only [facility] Health Information Management [address] [place] [address] Scanning, Provider Social History Tobacco Use Types Packs/Day Years Used Date Smoking Tobacco: Never Smokeless Tobacco: Never Personal Safety Answer Date Recorded Getting School Help Needed Not on file 08/19 Comments Unknown Sex and Gender Information Value Date Recorded Sex Assigned at Not on file 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
--- OUTSIDE RECORDS SUMMARY | 2025-04-22 09:18 | XMS_ITS | Patient Health Record ---
Author Organization [facility] Address [address] [place] [address] Care Team Providers Care Pullman Car Repairer Name Role Phone Gale Sweeney PA-C Primary Care Provider Rashad Blue Unavailable [phone] Reason For Referral No Information Medications Medication [...] Notes Problem Dermatochalasis of both upper eyelids (99071694995039306) Dermatochalasis of both upper eyelids (H02.831) Active confirmed Problem Artificial lens present (finding) (709507592) Pseudophakia, both eyes (Z96.1) Active confirmed Problem Long-term current use of insulin (207527668) Insulin long-term use (Z79.4) Active confirmed Problem Presbyopia (20686583) Bilateral presbyopia (H52.4) Active confirmed Problem Mild nonproliferative retinopathy due to type 2 diabetes mellitus (758298779856600) Type 2 diabetes mellitus with mild nonproliferative diabetic retinopathy with macular edema, bilateral (E11.3213) Active confirmed Plan Of Treatment No Information Insurance Providers Payer Name Payer Address Payer Phone Subscriber Number Group Number Insured Name Patient Relationship to Insured Coverage Start Date Coverage End Date [address] [phone] [id number] Michaela Irving Self - patient is the insured [address] [phone] [id number] Michaela Irving Self - patient is the [...]
--- OUTSIDE RECORDS SUMMARY | 2025-04-22 09:18 | XMS_ITS | Clinical Summary ---
Author Organization [facility] Address [address] [place] [address] Care Team Providers Care Senior Business Analyst Name Role Phone Anisha Lyle HOSKINS Primary Care Provider [phone] Allergies No known active allergies Medications ferrous [...] optometry Assessment & Plan (08/19/2023 11:33 AM BACK HAND): OD noncrntral edema almost resolved OS last inj IVO in December 2022 with dramatic improvement in DME DRCR discussed Assessment & Plan (12/31/2022 11:24 AM CDT): Last SUN 01/2022 Last ozurdex 08/2022 Now 4 months since last ozurdex with worsened edema and subjectively worse vision left eye (OS). IOP controlled on alphagan TID OS Consider repeat IVO OS today but will bring back digger operator at 1-2 months to assess response. Assessment & Plan (08/20/2022 8:55 AM BACK HAND): Last SUN 01/2022 Last ozurdex 04/2022 Now [...] incidence. Assessment & Plan (09/11/2021 9:07 AM BACK HAND): OD stable with minimal NCI-DME OS with persistent CI-DME s/p focal 05/22/21 and now 7 week s/p DESTINY for DME. Also received focal laser OS prior to last inj Consider repeat DESTINY OS today Assessment & Plan (07/24/2021 8:50 AM BACK HAND): Hx of antiVEGF both eyes (OU) in [place] OD: trace noncentral DME with great vision. Rec cont observation. OS: s/p focal 05/22/21. Worsened center-involved DME. Recommend anti-VEGF injection. Assessment & Plan (05/01/2021 9:13 AM CDT): Hx of antiVEGF both eyes (OU) in [place] Stable mild non-proliferative diabetic retinopathy (NPDR) with [...] OU Assessment & Plan (11/07/2020 9:12 AM BACK HAND): Discussed with patient Protocol V discussed Assessment & Plan (10/10/2020 11:57 AM BACK HAND): Previously managed by Dr. Domingo Hernandez in [place] DME OU. Treated with DESTINY q8w OD [...] time Assessment & Plan (10/10/2020 11:56 AM BACK HAND): Discussed with patient May contribute to DME Encounters Date Type Department Care Team Description 03/14/2025 Orders Only [facility] Medical Group Cardiology [address] [place] [address] Mitul Stanley MD 03/07/2025 Telephone [facility] Medical Group Cardiology [address] [place] [address] Mitul Stanley MD 03/05/2025 Orders Only [facility] Health Information Management [address] [place] [address] Scanning, Provider from Last 3 Months [...] on file Legal Sex Female 9:11 AM BACK HAND Gender Identity Not on file Sexual Orientation [...] Pneumococcal vaccine 65+ (2 of 2 - PPSV23, PCV20, or PCV21) 04/27/2002 03/02/2002 Zoster Vaccine (1 of 2) [...] GENERIC COPAY ASSIST CIGNA MEDICARE SUPPLEMENT INSURANCE MEDICARE CIGNA OPEN ACCESS [facility] MEDICARE SUPPLEMENT INSURANCE MEDICARE Care Teams Senior Business Analyst Relationship Specialty Start Date End Date Lyle Lancaster DO PCP - General Family Medicine 11/09/21
--- OUTSIDE RECORDS SUMMARY | 2025-04-22 09:18 | XMS_ITS | Clinical Summary ---
Author Organization [facility] [employer] Address [address] [place] [address] Care Team Providers Care Options Trader Name Role Phone José MiguelRandy forman Primary Care Provider + Source Comments [facility] [employer],non-owned Affiliates and Associated Physician Practices is amultiple site organization consisting of ambulatory clinics and hospital sitesin [place], [place], [place] and [place]. This disclosure is being madepursuant to the Care Everywhere program and may not contain all information available regarding this patient. Last updated 18.[employer] Allergies No known active allergies Medications * [...] 4 Grams (4000 mg) / 24 hours. 03/14/20 25 Active insulin glargine (Lantus/Semglee ) 100 units/mL pen Inject 10 (ten) Units subcutaneously every morning 15 mL 1 03/14/20 25 Active NIFEdipine CR 24hr (Adalat CC) 60 MG tabletIndicatio ns:Hypertension Take 1 (one) tablet by mouth once daily Reasons: High Blood Pressure 30 tablet 1 03/23/2025 10:02 AM CDT 03/15/20 25 Active vitamin D3 (Cholecalcifero l) 125 MCG (5000 UT) tablet Take 1 (one) tablet by mouth once daily 30 tablet 1 03/23/2025 10:02 AM CDT 03/15/20 25 Active hydrOXYzine HCl (Atarax) 25 MG tablet Take 1 (one) tablet by mouth every 6 hours as needed 30 tablet 03/23/2025 10:02 AM CDT 03/14/20 25 Active Alcohol Swabs USE 1 EACH 3 TIMES DAILY TO CLEAN AREA BEFORE TESTING AND INJECTING. 300 Each 03/23/2025 10:02 AM CDT 03/14/20 25 Active Insulin Pen Needle 32G X 4 MM MISCIndications :Type 2 diabetes mellitus with stage 4 chronic kidney disease, with long-term current use of insulin (HCC) Use 1 Each once daily 300 Each 03/23/2025 10:02 AM CDT 03/14/20 25 Active lancetsIndicati ons:Type 2 diabetes mellitus with stage 4 chronic kidney disease, with long-term current use of insulin (HCC) USE TO TEST BLOOD SUGAR 3 TIME(S) DAILY. (#300 UNITS/EACH= 300 TEST STRIPS). 90 Each 03/14/20 25 Active Blood Glucose Monitoring Suppl (Blood Glucose Monitor System) w/Device KITIndications: Type 2 diabetes mellitus with stage 4 chronic kidney disease, with long-term current use of insulin (HCC) Use 1 Each as directed 1 Each 03/14/20 25 Active blood glucose test stripIndication s:Type 2 Diabetes Mellitus USE TO TEST BLOOD SUGAR 3 TIME(S) DAILY. (#300 UNITS/EACH= 300 TEST STRIPS). Diagnosis code for billing Diabetes. Reasons: Type 2 Diabetes 90 strip 03/14/20 Active Active Problems Problem Noted Date Diagnosed Date Renal hemorrhage, right 03/10/2025 Hypertension 12/23/2007 Type II or unspecified type diabetes mellitus without mention of complication, not stated as uncontrolled 12/23/2007 Screening for cervical cancer 12/23/2007 Overview (12/23/2007): 02/10 Other screening mammogram 12/23/2007 Overview (12/23/2007): 06/13 Encounters Date Type Department Care Team Description 04/11/2025 Refill [facility] [address] [place] [address] Jeannie Johansen MD Refill Request 03/11/2025 Travel 03/10/2025 10:51 PM CDT - 03/14/2025 6:47 PM CDT Hospital Encounter [facility] [address] [place] [address] Saeed Lee MD Espiritu, Joseph R, MD Buckhold, Fred R III, MD Internal Medicine Discharge Disposition: Home [...] care, and heating? Not very hard 03/11/2025 [facility] [place] [facility] Occupat ional Health - Occupational Stress [...] any time in the past 12 m [facility], were you homeless or living in a custodial (including now)? 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 Glucose WB/POC 175(H) 70 - 99 mg/dL 03/14/2025 12:40 PM CDT [facility] Specimen Type Arterial/C apillary 03/14/2025 12:40 PM CDT [facility] Blood BLOOD SPECIMEN / Unknown 03/14/2025 12:32 PM CDT 03/14/2025 12:40 PM CDT us London Carlton III, MD LAB - POINT OF CARE MONICO MURRIETA Final Result [facility] [address] [place] [address], [place] [phone] * US Kidney With Doppler Complete (03/14/2025 [...] suggested. Report dictated by Patrick Yo MD (Nail Puller) I, Madeline Mark MD have personally reviewed [...] 5 cm cm and the left kidney tribqnjb17 x 6 x 4 cm. Both kidneys [...] suggested. Report dictated by Patrick Yo MD (Nail Puller) I, Madeline Mark MD have personally reviewed and interpreted this examination/study. > Interpreting Provider: Madeline Mark MD on 03/14/2025 3:26 PM us Paul Zamarripa MD US ORDERABLES Final Resul t * (ABNORMAL) CBC W AUTO DIFFERENTIAL (03/13/2025 4:00 PM CDT) Only the most recent of5 resultswithin the time period is included. WBC 9.7 4.0 - 10.7 x10E9/L 03/13/2025 4:39 PM [facility] RBC Count 2.46(L) 3.90 - 5.20 x10E12/L 03/13/2025 4:39 PM [facility] Hemoglobin 8.2(L) 11.9 - 15.8 g/dL 03/13/2025 4:39 PM [facility] Hematocrit 25.5(L) 34.8 - 46.1 % 03/13/2025 4:39 PM [facility] MCV 103.7(H) 80.0 - 98.0 fL 03/13/2025 4:39 PM [facility] MCH 33.3 26.7 - 33.6 pg 03/13/2025 4:39 PM [facility] MCHC 32.2 31.7 - 36.3 g/dL 03/13/2025 4:39 PM [facility] RDW-CV 12.3 11.3 - 14.8 % 03/13/2025 4:39 PM [facility] Platelet Count 250 150 - 420 x10E9/L 03/13/2025 4:39 PM [facility] MPV 12.2(H) 7.8 - 11.4 fL 03/13/2025 4:39 PM [facility] Neutrophil % 68.7 41.0 - 74.0 % 03/13/2025 4:39 PM [facility] Lymphocyte % 18.1 17.0 - 47.0 % 03/13/2025 4:39 PM [facility] Monocyte % 9.2 3.0 - 11.0 % 03/13/2025 4:39 PM [facility] Eosinophil % 2.7 0.0 - 7.0 % 03/13/2025 4:39 PM [facility] Basophil % 0.7 0.0 - 1.6 % 03/13/2025 4:39 PM [facility] Immature Granulocytes % 0.6 0.0 - 1.0 % 03/13/2025 4:39 PM [facility] Neutrophil Absolute 6.62 1.60 - 7.50 x10E9/L 03/13/2025 4:39 PM [facility] Lymphocyte Absolute 1.75 1.00 - 4.40 x10E9/L 03/13/2025 4:39 PM [facility] Monocyte Absolute 0.89 0.15 - 1.00 x10E9/L 03/13/2025 4:39 PM [facility] Eosinophil Absolute 0.26 0.00 - 0.60 x10E9/L 03/13/2025 4:39 PM [facility] Basophil Absolute 0.07 0.00 - 0.13 x10E9/L 03/13/2025 4:39 PM [facility] Blood BLOOD SPECIMEN / Unknown 03/13/2025 4:00 PM T 03/13/2025 4:29 PM CDT us Paul Zamarripa MD LAB - HEMATOLOGY ORDERABLES Final Result [facility] [address] [place] [address], [facility] [phone] * (ABNORMAL) BASIC METABOLIC PANEL (CALCIUM TOTAL) (03/13/2025 3:43 AM CDT) Only the most recent of4 resultswithin the time period is included. BUN 39(H) 7 - 26 mg/dL 03/13/2025 4:23 AM [facility] Creatinine 3.57(H) 0.56 - 0.96 mg/dL 03/13/2025 4:23 AM [facility] Sodium 140 136 - 145 mmol/L 03/13/2025 4:23 AM [facility] Potassium 4.2 3.5 - 4.5 mmol/L 03/13/2025 4:23 AM [facility] Chloride 109(H) 98 - 107 mmol/L 03/13/2025 4:23 AM [facility] CO2 24 22 - 29 mmol/L 03/13/2025 4:23 AM [facility] Glucose 138(H) 70 - 99 mg/dL 03/13/2025 4:23 AM [facility] Calcium 8.3(L) 8.4 - 10.2 mg/dL 03/13/2025 4:23 AM [facility] Anion Gap 7 6 - 16 03/13/2025 4:23 AM [facility] BUN/Creatinine Ratio 11 7 - 23 03/13/2025 4:23 AM [facility] Osmolality Calculated 302(H) 275 - 295 mOsm/kg 03/13/2025 4:23 AM [facility] eGFR by CKD-EPI 13(L) >=90 mL/min/1.7 3 m2 03/13/2025 4:23 AM [facility] Comment:Estimated Glomerular Filtration Rate (eGFR) calculated using the CKD-EPI Creatinine Equation (2020), per the National Kidney Foundation and [place] [employer]ph[employer] recommendations. Blood BLOOD SPECIMEN / Unknown Venipuncture / Unknown 03/13/2025 3:43 AM CDT 03/13/2025 3:56 AM CDT Saeed Lee MD LAB - CHEMISTRY ORDERABLES Fin al Result [address] [address], [place] [phone] * PHOSPHORUS BLOOD (03/13/2025 3:43 AM CDT) Only the most recent of4 resultswithin the time period is included. Phosphorus 4.1 2.9 - 5.1 mg/dL 03/13/2025 4:23 AM CDT [facility] Blood BLOOD SPECIMEN / Unknown Venipuncture / Unknown 03/13/2025 3:43 AM CDT 03/13/2025 3:56 AM CDT Saeed Lee MD LAB - CHEMISTRY ORDERABLES Fin al Result Performing Organization Address [facility]/ZIP Co de Phone Number [address] [address], [place] [phone] * MAGNESIUM BLOOD (03/13/2025 3:43 AM CDT) Only the most recent of4 resultswithin the time period is included. Magnesium 2.1 1.6 - 2.6 mg/dL 03/13/2025 4:23 AM CDT [facility] Blood BLOOD SPECIMEN / Unknown Venipuncture / Unknown 03/13/2025 3:43 AM CDT 03/13/2025 3:56 AM CDT Saeed Lee MD LAB - CHEMISTRY ORDERABLES Fin al Result Performing Organization Address City/[facility]/ZIP Co de Phone Number [address] [address], [place] [phone] * CULTURE URINE (03/12/2025 1:48 PM CDT) Culture Urine More than 2 organisms seen at >=50,000 CFU/mL. Recollect if clinically indicated. TAI 03/14/2025 2:[address] [facility] MICROBIOLOGY Urine URINE SPECIMEN OBTAINED BY CLEAN CATCH PROCEDURE / Unknown Collection / Unknown 03/12/2025 1:48 PM CDT 03/12/2025 1:53 PM CDT Paul Zamarripa MD LAB - MICROBIOLOGY ORDERABL ES Final Result [facility] MICROBIOLOGY [address] [place] [address], [facility] [phone] * (ABNORMAL) PTH INTACT W/O CALCIUM (03/12/2025 5:44 AM CDT) PTH Intact 346.1(H) 8.0 - 77.0 pg/mL 03/12/2025 6:25 AM CDT [facility] Blood BLOOD SPECIMEN / Unknown Venipuncture / Unknown 03/12/2025 5:44 AM CDT 03/12/2025 5:50 AM CDT Paul Zamarripa MD LAB - CHEMISTRY ORDERABLES Final Result Performing Organization Address [facility] Co de Phone Number [address] [address], [place] [phone] * TSH REFLEX FREE T4 (03/12/2025 5:44 AM CDT) TSH 1.533 0.350 - 4.940 uIU/mL 03/12/2025 6:53 AM CDT [facility] Blood BLOOD SPECIMEN / Unknown Venipuncture / Unknown 03/12/2025 5:44 AM CDT 03/12/2025 5:50 AM CDT Paul Zamarripa MD LAB - CHEMISTRY ORDERABLES Final Result Performing Organization Address City/[facility]/ZIP Co de Phone Number [address] [address], [place] [phone] * (ABNORMAL) METHYLMALONIC ACID BLOOD (03/12/2025 5:44 AM CDT) Methylmalonic Acid 0.63(H) 0.00 - 0.40 umol/L 03/15/2025 4:57 AM CDT [facility] ([facility]) Comment: Slight elevation 0.41-0.99 umol/L Consistent [...] developed and its performance characteristics determined by [employer]. It has not been cleared or approved by the US Food and Drug Administration. This test was performed in a CLIA certified laboratory and is intended for clinical purposes. Performed By: [employer] [address] [place] [address] Bedspread Folder: Paul Allen MD, PhD CLIA Number: [id number] Blood BLOOD SPECIMEN / Unknown Venipuncture / Unknown 03/12/2025 5:44 AM CDT 03/12/2025 5:49 AM CDT us Paul Zamarripa MD LAB - CHEMISTRY ORDERABLES Final Result [facility] [employer] [facility]) [address] [place] [address] * (ABNORMAL) VITAMIN D 1,25 DIHYDROXY (03/12/2025 5:44 AM CDT) Vitamin D, 1,25 Dihydroxy 8.1(L) 19.9 - 79.3 pg/mL 03/13/2025 11:29 PM CDT [facility] ([facility]) Comment: INTERPRETIVE INFORMATION: Vitamin D, 1,25-Dihydroxy This test is primarily indicated during patient evaluation for hypercalcemia and renal failure. A normal result does not rule out Vitamin D deficiency. The recommended test for diagnosing Vitamin D deficiency is Vitamin D 25-hydroxy. Performed By: [employer] [address] [place] [address] Bedspread Folder: Paul Allen MD, PhD CLIA Number: [id number] Blood BLOOD SPECIMEN / Unknown Venipuncture / Unknown 03/12/2025 5:44 AM CDT 03/12/2025 5:49 AM CDT Paul Zamarripa MD LAB - CHEMISTRY ORDERABLES Final Result Performing Organization Address City/[facility]/ZIP Co de Phone Number [facility] ([facility]) [address] [place], [place] [address] * (ABNORMAL) VITAMIN D 25-HYDROXY (03/12/2025 5:44 AM CDT) Vitamin D, 25 Hydroxy 21.5(L) 30.0 - 80.0 ng/mL 03/12/2025 6:55 AM CDT [facility] Comment: The recommendations for 25-Hydroxy Vitamin [...] 5:44 AM CDT 03/12/2025 5:50 AM CDT us Paul Zamarripa MD LAB - CHEMISTRY ORDERABLES Final Result [address] [address], [facility] [phone] * FOLATE (03/12/2025 5:44 AM CDT) Folate 7.0 7.0 - 31.4 ng/mL 03/12/2025 6:53 AM CDT [facility] Blood BLOOD SPECIMEN / Unknown Venipuncture / Unknown 03/12/2025 5:44 AM CDT 03/12/2025 5:50 AM CDT Paul Zamarripa MD LAB - CHEMISTRY ORDERABLES Final Result Performing Organization Address City/[facility]/ZIP Co de Phone Number [address] [address], [place] [phone] * (ABNORMAL) VITAMIN B12 (03/12/2025 5:44 AM CDT) Vitamin B12 >2,000(H) 213 - 816 pg/mL 03/12/2025 6:55 AM CDT [facility] Blood BLOOD SPECIMEN / Unknown Venipuncture / Unknown 03/12/2025 5:44 AM CDT 03/12/2025 5:50 AM CDT Paul Zamarripa MD LAB - CHEMISTRY ORDERABLES Final Result Performing Organization Address [facility]/ZIP Co de Phone Number [address] [address], [place] [phone] * (ABNORMAL) ALBUMIN BLOOD (03/12/2025 5:44 AM CDT) Albumin 2.2(L) 3.4 - 5.0 g/dL 03/12/2025 6:21 AM CDT [facility] Blood BLOOD SPECIMEN / Unknown Venipuncture / Unknown 03/12/2025 5:44 AM CDT 03/12/2025 5:50 AM CDT Paul Zamarripa MD LAB - CHEMISTRY ORDERABLES Final Result Performing Organization Address [facility]/ZIP Co de Phone Number [address] [address], [place] [phone] * (ABNORMAL) IRON + TRANSFERRIN PANEL (03/12/2025 5:44 AM CDT) Iron 20(L) 40 - 150 ug/dL 03/12/2025 6:13 AM CDT [facility] Transferrin 158(L) 174 - 382 mg/dL 03/12/2025 6:13 AM T [facility] Transferrin Saturation % 10(L) 16 - 50 % 03/12/2025 6:13 AM CDT [facility] TIBC Calculated 198(L) 240 - 450 ug/dL 03/12/2025 6:13 AM CDT [facility] Blood BLOOD SPECIMEN / Unknown Venipuncture / Unknown 03/12/2025 5:44 AM CDT 03/12/2025 5:49 AM CDT us Paul Zamarripa MD LAB - CHEMISTRY ORDERABLES Final Result [address] [address], [place] [phone] * (ABNORMAL) FERRITIN (03/12/2025 5:44 AM CDT) Ferritin 321(H) 13 - 204 ng/mL 03/12/2025 6:29 AM CDT [facility] Blood BLOOD SPECIMEN / Unknown Venipuncture / Unknown 03/12/2025 5:44 AM CDT 03/12/2025 5:49 AM CDT us Paul Zamarripa MD LAB - CHEMISTRY ORDERABLES Final Result [address] [address], [place] [phone] * (ABNORMAL) MICROALB/CREAT RATIO URINE RANDOM PANEL (03/11/2025 3:57 PM CDT) Albumin Random Urine >2,000.0 Not Established ug/mL 03/11/2025 5:16 PM CDT [facility] Creatinine Urine 90.35 Not Established mg/dL 03/11/2025 5:16 PM CDT [facility] Urine Albumin/Creati nine Ratio >2,214(H) <30 mg/g 03/11/2025 5:16 PM T [facility] Albumin/Creati nine Ratio Urine See Comment <30 mg/g 03/11/2025 5:16 PM T [facility] Comment:Unable to calculate the Urine Albumin/Creatinine Ratio due to one or more analyte concentration(s) being outside the measuring limits of the instrument. Urine URINE SPECIMEN OBTAINED BY CLEAN CATCH PROCEDURE / Unknown Collection / Unknown 03/11/2025 3:57 PM CDT 03/11/2025 4:08 PM CDT us Paul Zamarripa MD LAB - URINE CHEMISTRY ORDER CAROL Final Result [facility] [address] [place] [address], [facility] [phone] * (ABNORMAL) URINALYSIS W/MICROSCOPIC NO CULTURE (03/11/2025 2:14 PM CDT) Color UA Straw Yellow, Straw 03/11/2025 2:45 PM [facility] Clarity UA Turbid(A) Clear 03/11/2025 2:45 PM [facility] Glucose UA Normal Normal 03/11/2025 2:45 PM [facility] Bilirubin UA Negative Negative 03/11/2025 2:45 PM [facility] Ketone UA Negative Negative 03/11/2025 2:45 PM [facility] Specific Guthrie UA 1.012 1.005 - 1.030 03/11/2025 2:45 PM [facility] Blood UA 2+(A) Negative 03/11/2025 2:45 PM [facility] pH UA 7.0 5.0 - 8.0 03/11/2025 2:45 PM [facility] Protein UA 3+(A) Negative 03/11/2025 2:45 PM [facility] Urobilinogen UA Normal Normal mg/dL 03/11/2025 2:45 PM [facility] Nitrite UA Negative Negative 03/11/2025 2:45 PM [facility] Leukocyte Esterase UA 250 NOEL/uL(A) Negative 03/11/2025 2:45 PM CDT [facility] RBC UA 51-100(A) 0 - 5 # /hpf 03/11/2025 2:45 PM CDT [facility] WBC UA 21-50(A) 0 - 5 # /hpf 03/11/2025 2:45 PM CDT [facility] Bacteria UA 3+(A) None Seen 03/11/2025 2:45 PM CDT [facility] Squamous Epithelial Cells 3-5 0 - 5 /hpf 03/11/2025 2:45 PM CDT [facility] Urine URINE SPECIMEN OBTAINED BY CLEAN CATCH PROCEDURE / Unknown Collection / Unknown 03/11/2025 2:14 PM CDT 03/11/2025 2:18 PM CDT Paul Zamarripa MD LAB - URINALYSIS ORDERABLES Final Result Performing Organization Address City/[facility]/ZIP Co de Phone Number [address] [address], [place] [phone] * PROTEIN URINE RANDOM QUANTITATIVE (03/11/2025 2:14 PM CDT) Protein Urine 486 Not Established mg/dL 03/11/2025 3:10 PM CDT [facility] Comment:Result obtained by fadumo pritchett. Urine URINE SPECIMEN OBTAINED BY CLEAN CATCH PROCEDURE / Unknown Collection / Unknown 03/11/2025 2:14 PM CDT 03/11/2025 2:27 PM CDT us Paul Zamarripa MD LAB - URINE CHEMISTRY ORDER CAROL Final Result [address] [address], [place] [phone] * (ABNORMAL) PROTEIN CREATININE RATIO URINE RANDOM PNL (03/11/2025 2:14 PM CDT) Protein Urine 486 Not Established mg/dL 03/11/2025 5:26 PM CDT [facility] Comment:Result obtained by fadumo pritchett. Creatinine Urine 74.93 Not Established mg/dL 03/11/2025 5:26 PM CDT [facility] Comment:Result obtained by fadumo pritchett. Protein/Creati nine Ratio Urine 6.49(H) <0.10 03/11/2025 5:26 PM CDT [facility] Urine URINE SPECIMEN OBTAINED BY CLEAN CATCH PROCEDURE / Unknown Collection / Unknown 03/11/2025 2:14 PM CDT 03/11/2025 2:27 PM CDT Paul Zamarripa MD LAB - URINE CHEMISTRY ORDER CAROL Final Result Performing Organization Address City/[facility]/ZIP Co de Phone Number [address] [address], [place] [phone] * UREA NITROGEN URINE RANDOM (03/11/2025 12:09 PM CDT) Urea Nitrogen Random Urine 393 Not Established mg/dL 03/11/2025 12:40 PM CDT [facility] Urine URINE SPECIMEN OBTAINED BY CLEAN CATCH PROCEDURE / Unknown Collection / Unknown 03/11/2025 12:09 PM CDT 03/11/2025 12:13 PM CDT Paul Zamarripa MD LAB - URINE CHEMISTRY ORDER CAROL Final Result Performing Organization Address [facility]/ZIP Co de Phone Number [address] [address], [place] [phone] * OSMOLALITY URINE (03/11/2025 12:09 PM CDT) Osmolality Urine 342 50 - 1,200 mOsm/kg 03/11/2025 3:16 PM CDT [facility] Urine URINE SPECIMEN OBTAINED BY CLEAN CATCH PROCEDURE / Unknown Collection / Unknown 03/11/2025 12:09 PM CDT 03/11/2025 12:13 PM CDT Paul Zamarripa MD LAB - URINE CHEMISTRY ORDER CAROL Final Result Performing Organization Address [facility]/ZIP Co de Phone Number [address] [address], [place] [phone] * LYTES (NA K CL) URINE RANDOM PANEL (03/11/2025 12:09 PM CDT) Sodium Urine 73 Not Established mmol/L 03/11/2025 12:40 PM CDT [facility] Potassium Urine 25.3 Not Established mmol/L 03/11/2025 12:40 PM CDT [facility] Chloride Random Urine 33 Not Established mmol/L 03/11/2025 12:40 PM CDT [facility] Urine URINE SPECIMEN OBTAINED BY CLEAN CATCH PROCEDURE / Unknown Collection / Unknown 03/11/2025 12:09 PM CDT 03/11/2025 12:13 PM CDT Paul Zamarripa MD LAB - URINE CHEMISTRY ORDER CAROL Final Result Performing Organization Address City/[facility]/ZIP Co de Phone Number [address] [address], [place] [phone] * CREATININE URINE RANDOM (03/11/2025 12:09 PM CDT) Creatinine Urine 71.55 Not Established mg/dL 03/11/2025 12:40 PM CDT [facility] Urine URINE SPECIMEN OBTAINED BY CLEAN CATCH PROCEDURE / Unknown Collection / Unknown 03/11/2025 12:09 PM CDT 03/11/2025 12:13 PM CDT Paul Zamarripa MD LAB - URINE CHEMISTRY ORDER CAROL Final Result [address] [address], [place] [phone] * (ABNORMAL) CBC W/O DIFFERENTIAL (03/11/2025 6:10 AM CDT) Only the most recent of3 resultswithin the time period is included. WBC 8.0 4.0 - 10.7 x10E9/L 03/11/2025 6:21 AM CDT [facility] RBC Count 2.27(L) 3.90 - 5.20 x10E12/L 03/11/2025 6:21 AM [facility] Hemoglobin 7.8(L) 11.9 - 15.8 g/dL 03/11/2025 6:21 AM [facility] Hematocrit 22.8(L) 34.8 - 46.1 % 03/11/2025 6:21 AM [facility] MCV 100.4(H) 80.0 - 98.0 fL 03/11/2025 6:21 AM [facility] MCH 34.4(H) 26.7 - 33.6 pg 03/11/2025 6:21 AM [facility] MCHC 34.2 31.7 - 36.3 g/dL 03/11/2025 6:21 AM [facility] RDW-CV 12.6 11.3 - 14.8 % 03/11/2025 6:21 AM [facility] Platelet Count 201 150 - 420 x10E9/L 03/11/2025 6:21 AM [facility] MPV 11.8(H) 7.8 - 11.4 fL 03/11/2025 6:21 AM [facility] Blood BLOOD SPECIMEN / Unknown Venipuncture / Unknown 03/11/2025 6:10 AM CDT 03/11/2025 6:17 AM CDT us Saeed Lee MD LAB - HEMATOLOGY ORDERABLES Fi nal Result [facility] [address] [place] [address], [facility] [phone] * B-TYPE NATRIURETIC PEPTIDE (03/11/2025 6:10 AM CDT) BNP 80 <100 pg/mL 03/11/2025 6:51 AM [facility] Comment: A decision threshold of 100 [...] 6:10 AM CDT 03/11/2025 6:17 AM CDT Saeed Lee MD LAB - CHEMISTRY ORDERABLES Fin al Result Performing Organization Address City/[facility]/ZIP Co de Phone Number [address] [address], [facility] [phone] * (ABNORMAL) HEMOGLOBIN A1C (03/11/2025 3:17 AM CDT) Hemoglobin A1c 5.8(H) <=5.6 % 03/11/2025 8:53 AM CDT [facility] Estimated Average Glucose 120 mg/dL 03/11/2025 8:53 AM CDT [facility] Comment: HbA1c Interpretation: Normal : < 5.7% Pre-diabetes: 5.7-6.4% Diabetes: Equal to or greater than 6.5% Test results diagnostic of diabetes should be repeated for confirmation. Treatment target values recommended by ADA and other clinical organizations should be used to evaluate metabolic control in patients. Reference: [place] [employer], Standards of Care in Diabetes -2020 In patients 70 years and older consider HbA1c target range of 7.0-7.5% (Reference: Rodri Montes et al. JAMDA. 2012) The [employer] assay for the measurement of HbA1c is a National Glycohemoglobin Standardization Program (NGSP) certified method. Blood BLOOD SPECIMEN / Unknown Venipuncture / Unknown 03/11/2025 3:17 AM CDT 03/11/2025 3:31 AM CDT us Saeed Lee MD LAB - CHEMISTRY ORDERABLES Fin al Result [address] [place] [address], [facility] [phone] * PTT [facility] (03/11/2025 12:16 AM CDT) APTT 27.6 23.0 - 38.4 Seconds 03/11/2025 1:22 AM [facility] Comment:Suggested therapeuti c range for full dose I.V. unfractionated heparin therapy for venous thromboembolism is 71 to 109 seconds. Blood BLOOD SPECIMEN / Unknown Venipuncture / Unknown 03/11/2025 12:16 AM CDT 03/11/2025 12:29 AM CDT Saeed Lee MD LAB - COAGULATION ORDERABLES F inal Result Performing Organization Address [facility] [place] de Phone Number [address] [address], [facility] [phone] * PT-INR [facility] (03/11/2025 12:16 AM CDT) PT 13.7 12.1 - 14.8 Seconds 03/11/2025 1:22 AM [facility] INR 1.1 See Comment 03/11/2025 1:22 AM T [facility] Comment:The suggested therap eutic range for standard coumadin (warfarin) therapy is an INR of 2.0-3.0. For high-risk patients (Mechanical Mitral Valve Prosthesis, etc.), the suggested prophylactic therapeutic range is an INR of 2.5-3.5. Blood BLOOD SPECIMEN / Unknown Venipuncture / Unknown 03/11/2025 12:16 AM CDT 03/11/2025 12:29 AM CDT Saeed Lee MD LAB - COAGULATION ORDERABLES F inal Result Performing Organization Address City/[facility]/ZIP Co de Phone Number [address] [address], [place] [phone] from Last 3 Months Insurance [facility] [employer] MEDICARE SELF PAY NO INSURANCE Member Subscriber Plan / Payer (Ef fective for All Dates) Name:Michaela Christian Member ID:Not on file Relation to Subscriber:Not on file Name:MICHAELA CHRISTIAN Subscriber ID:Not on file (Home) Address: [address] [place] [id number] Payer ID:Not on file Group ID:Not on file Type:Self Pay Address: [place], [place] Advance Directives * Full Code (Latest Code Status on File) Date Activated Date Inactivated Comments 03/10/2025 11:33 PM 03/14/2025 7:52 PM Care Teams Options Trader Relationship Specialty Start Date End Date Randy Martinez DO [address] [place] [id number] PCP - General 12/23/07
[2025-04-22 13:29] LABS: Anion Gap 9 mmol/L (4-12); Blood Urea Nitrogen 37 mg/dL (7-17); Calcium 9.1 mg/dL (8.4-10.2); Carbon Dioxide 19 mmol/L (22-30); Chloride 111 mmol/L (98-107); Estimated Glomerular Filt Rate 12; Glucose 110 mg/dL (65-110); Potassium 5.6 mmol/L (3.4-5.0); Sodium 139 mmol/L (137-145)
== END 2025-04-22 09:14 | disposition home or self-care (01) ==
LOC: ANHGOSHLAB 09:15
PROVIDERS: PCP Nurse Practitioner; Visit Provider Internal Medicine Nephrology
DX: N18.4 Chronic kidney disease, stage 4 (severe) (principal); E55.9 Vitamin D deficiency, unspecified
CPT/HCPCS: 36415; 80048; 82306

== ENCOUNTER 2025-05-27 14:34 | Outpatient (CLI) | payer MEDICARE, SELFPAY ==
--- OUTSIDE RECORDS SUMMARY | 2020-09-12 09:05 | XMS_ITS | Continuity of Care Document ---
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 Insulin dosing requires individualization. 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, [place], [id number], [place]. tel:[phone] [facility], [address], [place], [id number], [place] tel:[phone] [facility] DM with DR and Edema (chief complaint) DM, type 2, mild background retinopathy w/ macular edema, bilateral Dec-[address], [place], [id number], [place]. tel:[phone] [facility], [address], [place], [id number], [place] tel:[phone] [facility] Dm with DR and edema (chief complaint) DM, type 2, mild background retinopathy w/ macular edema, bilateral Nov- 0- [address], [place], [id number], [place]. tel:[phone] [facility], [address], [place], [id number], [place] tel:[phone] [facility] decreased vision (chief complaint) DM, type 2, mild background retinopathy w/ macular edema, bilateral Oct-[address], [place], [id number], [place]. tel:[phone] [facility], [address], [place], [id number], [place] tel:[phone] [facility] DM with mild DR and macular edema (chief complaint) DM, type 2, mild background retinopathy w/ macular edema, bilateral Sep-[address], [place], [id number], [place]. tel:[phone] [facility], [address], [place], [id number], [place] tel:[phone] [facility] diabetic eye exam (chief complaint) DM, type 2, mild background retinopathy w/ macular edema, bilateralPost erior Capsule Opacification , left eye Mar- [address], [place], [id number], [place]. tel:[phone] [facility], [address], [place], [id number], [place] tel:[phone] [facility] DM (chief complaint) DM, type 2, mild background retinopathy w/ macular edema, bilateralPost erior Capsule Opacification , left eye [address], [place], [id number], [place]. tel:[phone] [facility], [address], [place], [id number], [place] tel:[phone] [facility] DM w/ mac edema (chief complaint) DM, type 2, mild background retinopathy w/ macular edema, bilateral Nov- [address], [place], [id number], [place]. tel:[phone] [facility], [address], [place], [id number], [place] tel:[phone] [facility] DME (chief complaint) DM, type 2, mild background retinopathy w/ macular edema, bilateral Feb-[address], [place], [id number], [place]. tel:[phone] [facility], [address], [place], [id number], [place] tel:[phone] [facility] DM, type 2, mild background retinopathy w/ macular emeka (chief complaint) DM, type 2, mild background retinopathy w/ macular edema, bilateral Dec-[address], [place], [id number], [place]. tel:[phone] [facility], [address], [place], [id number], [place] tel:[phone] [facility] diabetic eye exam (chief complaint) DM, type 2, mild background retinopathy w/ macular edema, bilateral Jul- [address], [place], [id number], [place]. tel:[phone] [facility], [address], [place], [id number], [place] tel:[phone] [facility] diabetic eye exam (chief complaint) DM, type 2, mild background retinopathy w/ macular edema, bilateral Oct-[address], [place], [id number], [place]. tel:[phone] [facility], [address], [place], [id number], [place] tel:[phone] [facility] diabetic eye exam (chief complaint) DM, type 2, mild background retinopathy w/ macular edema, bilateral [address], [place], [id number], [place]. tel:[phone] [facility], [address], [place], [id number], [place] tel:[phone] [facility] diabetic eye exam (chief complaint) DM, type 2, mild background retinopathy w/ macular edema, bilateral [address], [place], [id number], [place]. tel:[phone] [facility], [address], [place], [id number], [place] tel:[phone] [facility] DM w/ mac edema (chief complaint) DM, type 2, mild background retinopathy w/ macular edema, bilateral [address], [place], [id number], [place]. tel:[phone] [facility], [address], [place], [id number], [place] tel:[phone] [facility] diabetic eye exam (chief complaint) DM, type 2, mild background retinopathy w/ macular edema, bilateral [address], [place], [id number], [place]. tel:[phone] [facility], [address], [place], [id number], [place] tel:[phone] [facility] diabetic eye exam (chief complaint) DM, type 2, mild background retinopathy w/ macular edema, bilateral Oct- [address], [place], [id number], [place]. tel:[phone] [facility], [address], [place], [id number], [place] tel:[phone] [facility] diabetic eye exam (chief complaint) DM, type 2, mild background retinopathy w/ macular edema, bilateral [address], [place], [id number], [place]. tel:[phone] [facility], [address], [place], [id number], [place] tel:[phone] [facility] diabetic eye exam (chief complaint) DM, type 2, mild background retinopathy w/ macular edema, bilateral [address], [place], [id number], [place]. tel:[phone] [facility], [address], [place], [id number], [place] tel:[phone] [facility] diabetic eye exam (chief complaint) DM, type 2, mild background retinopathy w/ macular edema, bilateral Nov-1 3-[address], [place], [id number], [place]. tel:[phone] [facility], [address], [place], [id number], [place] tel:[phone] [facility] DM with macular edema (chief complaint) DM, type 2, mild background retinopathy w/ macular edema, bilateral Oct-1 5-[address], [place], [id number], [place]. tel:[phone] [facility], [address], [place], [id number], [place] tel:[phone] [facility] diabetic eye exam (chief complaint) DM, type 2, mild background retinopathy w/ macular edema, bilateralPost erior Capsule Opacification , left eye Oct-1 0-[address], [place], [id number], [place]. tel:[phone] [facility], [address], [place], [id number], [place] tel:[phone] [facility] diabetic eye exam (chief complaint) DM, type 2, mild background retinopathy w/ macular edema, bilateral Apr-0 6-[address], [place], [id number], [place]. tel:[phone] [facility], [address], [place], [id number], [place] tel:[phone] [facility] diabetic eye exam (chief complaint) DM, type 2, mild background retinopathy w/ macular edema, bilateral Dec-0 1-[address], [place], [id number], [place]. tel:[phone] [facility], [address], [place], [id number], [place] tel:[phone] [facility] diabetic eye exam (chief complaint) DM, type 2, mild background retinopathy w/ macular edema, bilateral [address], [place], [id number], [place]. 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 No complaints. Referred by Dr. Godoy ([place], [place]). was told there was swelling in the back of the eye to diabetes. Was given Ketorolac to use 2-3 times a day. BS - [id number] - Last A1C was 7.7 (05/21/2007) Functional Status Date Functional Assessmen t No Information Instructions Date Instruction Additional Infor valentin Return in PRN Related to DM, t ype 2, mild background retinopathy w/ macular edema, bilateral Impression/Plan - Ya g laser capsulotomy OS in future as symptoms dictate. 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 in [place] 10/10/20 (4 weeks from today). Given excellent BCVA OD, could consider observation or other regimen in an attempt to decrease her number of injections OD.OS: SUN OS today; continue q4 weeks as central DME continues to improve. Switched to Eylea OS 06/30/20 with good response. Next appt with Dr. Correa's office 10/10/20 (4 weeks from today). Patient is moving to [place] this month (September 2020). Has appointment with Dr. Mike Correa at [facility] in [facility] on 10/10/20. We will be sending chart notes after today's visit for patient to continue care with Dr. Correa. Related to DM, type 2, mild background retinopathy w/ macular edema, bilateral Return with Dr. Brian Hernandez for dilated exam and [place] 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 Risks, benefits, and alternatives reviewed with patient, who agrees to proceed. OD: DESTINY OD; continue q8 weeks; next due 09/12/20OS: SUN OS today interval; next due in 4 weeks on 09/12/20Patient will be moving to [facility] in September, recommend patient call [facility] Retinal department to set up appointment to continue care once she moves. 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 Domingo Hernandez for dilated exam and OCT (mac). 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 Hernandez for mac OCT, dilated [...] continue q8 week intervalOS: Continue q4 week SUN OS interval; next due 08/08/20Patient will be moving to [facility] in September, recommend patient call [facility] Retinal department to set up appointment [...] SUN OS today: next due in 4 weeks.DESTINY OD: next due on 07/12/2020.[id number] paperwork filled out/scanned today. Related to DM, [...] macular edema, bilateral Return in 8 weeks [facility] [address] Hernandez for mac OCT, dilated [...] Posterior Capsule Opacification, left eye Return in 8 weeks [facility] [address] Hernandez for mac OCT, dilated [...] bilateral Follow up - Return i n 1-[address] Domingo Hernandez for DFE, DESTINY OU. 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 Risks, benefits, and alternatives discussed with patient, including risk of permanent vision loss. 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
--- OUTSIDE RECORDS SUMMARY | 2025-05-27 14:39 | XMS_ITS | Clinical Summary ---
Author Organization [facility] [employer] Address [address] [place] [address] Care Team Providers Care Electrophonic Engineer Name Role Phone José MiguelRandy forman Primary Care Provider + Source Comments [facility] [employer],non-owned Affiliates and Associated Physician Practices is amultiple site organization consisting of ambulatory clinics and hospital sitesin [place], [place] and [place]. This disclosure is being madepursuant to the Care Everywhere program and may not contain all information available regarding this patient. Last updated 18.[facility] [employer] Allergies No known active allergies Medications * [...] Type Department Care Team Description 04/11/2025 Refill [facility] [address] [place] [address] Jeannie Johansen MD Refill Request 03/11/2025 Travel 03/10/2025 10:51 PM CDT - 03/14/2025 6:47 PM CDT Hospital Encounter [facility] [address] [place] [address] Saeed Lee MD Espiritu, Joseph R, MD [...] care, and heating? 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 Glucose WB/POC 175(H) 70 - 99 mg/dL 03/14/2025 12:40 PM CDT [facility] Specimen Type Arterial/C apillary 03/14/2025 12:40 PM CDT [facility] Blood BLOOD SPECIMEN / Unknown 03/14/2025 12:32 PM CDT 03/14/2025 12:40 PM CDT us London Carlton III, MD LAB - POINT OF CARE MONICO MURRIETA Final Result [facility] [address] [place] [address], [place] [phone] * US Kidney With Doppler Complete (03/14/2025 [...] suggested. Report dictated by Patrick Yo MD (Director Of Marketing) I, Madeline Mark MD have personally reviewed [...] 5 cm cm and the left kidney x 6 x 4 cm. Both kidneys [...] suggested. Report dictated by Patrick Yo MD (Director Of Marketing) I, Madeline Mark MD have personally reviewed and interpreted this examination/study. > Interpreting Provider: Madeline Mark MD on 03/14/2025 3:26 PM us Paul Zamarripa MD US ORDERABLES Final Resul t * (ABNORMAL) CBC W AUTO DIFFERENTIAL (03/13/2025 4:00 PM CDT) Only the most recent of5 resultswithin the time period is included. WBC 9.7 4.0 - 10.7 x10E9/L 03/13/2025 4:39 PM [facility] RBC Count 2.46(L) 3.90 - 5.20 x10E12/L 03/13/2025 4:39 PM [facility] Hemoglobin 8.2(L) 11.9 - 15.8 g/dL 03/13/2025 4:39 PM [facility] Hematocrit 25.5(L) 34.8 - 46.1 % 03/13/2025 4:39 PM [facility] MCV 103.7(H) 80.0 - 98.0 fL 03/13/2025 4:39 PM [facility] MCH 33.3 26.7 - 33.6 pg 03/13/2025 4:39 PM [facility] MCHC 32.2 31.7 - 36.3 g/dL 03/13/2025 4:39 PM [facility] RDW-CV 12.3 11.3 - 14.8 % 03/13/2025 4:39 PM [facility] Platelet Count 250 150 - 420 x10E9/L 03/13/2025 4:39 PM [facility] MPV 12.2(H) 7.8 - 11.4 fL 03/13/2025 4:39 PM [facility] Neutrophil % 68.7 41.0 - 74.0 % 03/13/2025 4:39 PM [facility] Lymphocyte % 18.1 17.0 - 47.0 % 03/13/2025 4:39 PM [facility] Monocyte % 9.2 3.0 - 11.0 % 03/13/2025 4:39 PM [facility] Eosinophil % 2.7 0.0 - 7.0 % 03/13/2025 4:39 PM [facility] Basophil % 0.7 0.0 - 1.6 % 03/13/2025 4:39 PM [facility] Immature Granulocytes % 0.6 0.0 - 1.0 % 03/13/2025 4:39 PM [facility] Neutrophil Absolute 6.62 1.60 - 7.50 x10E9/L 03/13/2025 4:39 PM [facility] Lymphocyte Absolute 1.75 1.00 - 4.40 x10E9/L 03/13/2025 4:39 PM [facility] Monocyte Absolute 0.89 0.15 - 1.00 x10E9/L 03/13/2025 4:39 PM [facility] Eosinophil Absolute 0.26 0.00 - 0.60 x10E9/L 03/13/2025 4:39 PM [facility] Basophil Absolute 0.07 0.00 - 0.13 x10E9/L 03/13/2025 4:39 PM [facility] Blood BLOOD SPECIMEN / Unknown 03/13/2025 4:00 PM T 03/13/2025 4:29 PM CDT us Paul Zamarripa MD LAB - HEMATOLOGY ORDERABLES Final Result [facility] [address] [place] [address], [facility] [phone] * (ABNORMAL) BASIC METABOLIC PANEL (CALCIUM TOTAL) (03/13/2025 3:43 AM CDT) Only the most recent of4 resultswithin the time period is included. BUN 39(H) 7 - 26 mg/dL 03/13/2025 4:23 AM [facility] Creatinine 3.57(H) 0.56 - 0.96 mg/dL 03/13/2025 4:23 AM [facility] Sodium 140 136 - 145 mmol/L 03/13/2025 4:23 AM [facility] Potassium 4.2 3.5 - 4.5 mmol/L 03/13/2025 4:23 AM [facility] Chloride 109(H) 98 - 107 mmol/L 03/13/2025 4:23 AM [facility] CO2 24 22 - 29 mmol/L 03/13/2025 4:23 AM [facility] Glucose 138(H) 70 - 99 mg/dL 03/13/2025 4:23 AM [facility] Calcium 8.3(L) 8.4 - 10.2 mg/dL 03/13/2025 4:23 AM [facility] Anion Gap 7 6 - 16 03/13/2025 4:23 AM [facility] BUN/Creatinine Ratio 11 7 - 23 03/13/2025 4:23 AM [facility] Osmolality Calculated 302(H) 275 - 295 mOsm/kg 03/13/2025 4:23 AM [facility] eGFR by CKD-EPI 13(L) >=90 mL/min/1.7 3 m2 03/13/2025 4:23 AM [facility] Comment:Estimated Glomerular Filtration Rate (eGFR) calculated using the CKD-EPI Creatinine Equation (2020), per the National Kidney Foundation and [place] Society of Nephrology recommendations. Blood BLOOD SPECIMEN / Unknown Venipuncture / Unknown 03/13/2025 3:43 AM CDT 03/13/2025 3:56 AM CDT Saeed Lee MD LAB - CHEMISTRY ORDERABLES Fin al Result [address] [address], [place] [phone] * PHOSPHORUS BLOOD (03/13/2025 3:43 AM CDT) Only the most recent of4 resultswithin the time period is included. Phosphorus 4.1 2.9 - 5.1 mg/dL 03/13/2025 4:23 AM CDT [facility] Blood BLOOD SPECIMEN / Unknown Venipuncture / Unknown 03/13/2025 3:43 AM CDT 03/13/2025 3:56 AM CDT Saeed Lee MD LAB - CHEMISTRY ORDERABLES Fin al Result Performing Organization Address [facility]/ZIP Co de Phone Number [address] [address], [place] [phone] * MAGNESIUM BLOOD (03/13/2025 3:43 AM CDT) Only the most recent of4 resultswithin the time period is included. Magnesium 2.1 1.6 - 2.6 mg/dL 03/13/2025 4:23 AM CDT [facility] Blood BLOOD SPECIMEN / Unknown Venipuncture / Unknown 03/13/2025 3:43 AM CDT 03/13/2025 3:56 AM CDT Saeed Lee MD LAB - CHEMISTRY ORDERABLES Fin al Result Performing Organization Address City/[facility]/ZIP Co de Phone Number [address] [address], [place] [phone] * CULTURE URINE (03/12/2025 1:48 PM CDT) Culture Urine More than 2 organisms seen at >=50,000 CFU/mL. Recollect if clinically indicated. TAI 03/14/2025 2:[address] [facility] MICROBIOLOGY Urine URINE SPECIMEN OBTAINED BY CLEAN CATCH PROCEDURE / Unknown Collection / Unknown 03/12/2025 1:48 PM CDT 03/12/2025 1:53 PM CDT Paul Zamarripa MD LAB - MICROBIOLOGY ORDERABL ES Final Result [facility] MICROBIOLOGY [address] [place] [address], [facility] [phone] * (ABNORMAL) PTH INTACT W/O CALCIUM (03/12/2025 5:44 AM CDT) PTH Intact 346.1(H) 8.0 - 77.0 pg/mL 03/12/2025 6:25 AM CDT [facility] Blood BLOOD SPECIMEN / Unknown Venipuncture / Unknown 03/12/2025 5:44 AM CDT 03/12/2025 5:50 AM CDT Paul Zamarripa MD LAB - CHEMISTRY ORDERABLES Final Result Performing Organization Address [facility] Co de Phone Number [address] [address], [place] [phone] * TSH REFLEX FREE T4 (03/12/2025 5:44 AM CDT) TSH 1.533 0.350 - 4.940 uIU/mL 03/12/2025 6:53 AM CDT [facility] Blood BLOOD SPECIMEN / Unknown Venipuncture / Unknown 03/12/2025 5:44 AM CDT 03/12/2025 5:50 AM CDT Paul Zamarripa MD LAB - CHEMISTRY ORDERABLES Final Result Performing Organization Address City/[facility]/ZIP Co de Phone Number [address] [address], [place] [phone] * (ABNORMAL) METHYLMALONIC ACID BLOOD (03/12/2025 5:44 AM CDT) Methylmalonic Acid 0.63(H) 0.00 - 0.40 umol/L 03/15/2025 4:57 AM CDT [facility] ([facility]) Comment: Slight elevation 0.41-0.99 umol/L Consistent with [...] developed and its performance characteristics determined by [employer]. It has not been cleared or approved by the US Food and Drug Administration. This test was performed in a CLIA certified laboratory and is intended for clinical purposes. Performed By: [facility] [address] [place] [id number] Director Of Consumer Marketing: Paul Allen MD, PhD CLIA Number: [id number] Blood BLOOD SPECIMEN / Unknown Venipuncture / Unknown 03/12/2025 5:44 AM CDT 03/12/2025 5:49 AM CDT us Paul Zamarripa MD LAB - CHEMISTRY ORDERABLES Final Result [facility] [place]) [address] [place] [address] * (ABNORMAL) VITAMIN D 1,25 DIHYDROXY (03/12/2025 5:44 AM CDT) Vitamin D, 1,25 Dihydroxy 8.1(L) 19.9 - 79.3 pg/mL 03/13/2025 11:29 PM CDT [facility] ([facility]) Comment: INTERPRETIVE INFORMATION: Vitamin D, 1,25-Dihydroxy This test is primarily indicated during patient evaluation for hypercalcemia and renal failure. A normal result does not rule out Vitamin D deficiency. The recommended test for diagnosing Vitamin D deficiency is Vitamin D 25-hydroxy. Performed By: [facility] [address] [place] [address] Director Of Consumer Marketing: Paul Allen MD, PhD CLIA Number: [id number] Blood BLOOD SPECIMEN / Unknown Venipuncture / Unknown 03/12/2025 5:44 AM CDT 03/12/2025 5:49 AM CDT Paul Zamarripa MD LAB - CHEMISTRY ORDERABLES Final Result Performing Organization Address City/[facility]/ZIP Co de Phone Number [facility] ([facility]) [address] [place], [place] [address] * (ABNORMAL) VITAMIN D 25-HYDROXY (03/12/2025 5:44 AM CDT) Vitamin D, 25 Hydroxy 21.5(L) 30.0 - 80.0 ng/mL 03/12/2025 6:55 AM CDT [facility] Comment: The recommendations for 25-Hydroxy Vitamin D [...] MD LAB - CHEMISTRY ORDERABLES Final Result [address] [address], [facility] [phone] * FOLATE (03/12/2025 5:44 AM CDT) Folate 7.0 7.0 - 31.4 ng/mL 03/12/2025 6:53 AM CDT [facility] Blood BLOOD SPECIMEN / Unknown Venipuncture / Unknown 03/12/2025 5:44 AM CDT 03/12/2025 5:50 AM CDT Paul Zamarripa MD LAB - CHEMISTRY ORDERABLES Final Result Performing Organization Address City/[facility]/ZIP Co de Phone Number [address] [address], [place] [phone] * (ABNORMAL) VITAMIN B12 (03/12/2025 5:44 AM CDT) Vitamin B12 >2,000(H) 213 - 816 pg/mL 03/12/2025 6:55 AM CDT [facility] Blood BLOOD SPECIMEN / Unknown Venipuncture / Unknown 03/12/2025 5:44 AM CDT 03/12/2025 5:50 AM CDT Paul Zamarripa MD LAB - CHEMISTRY ORDERABLES Final Result Performing Organization Address [facility]/ZIP Co de Phone Number [address] [address], [place] [phone] * (ABNORMAL) ALBUMIN BLOOD (03/12/2025 5:44 AM CDT) Albumin 2.2(L) 3.4 - 5.0 g/dL 03/12/2025 6:21 AM CDT [facility] Blood BLOOD SPECIMEN / Unknown Venipuncture / Unknown 03/12/2025 5:44 AM CDT 03/12/2025 5:50 AM CDT Paul Zamarripa MD LAB - CHEMISTRY ORDERABLES Final Result Performing Organization Address [facility]/ZIP Co de Phone Number [address] [address], [place] [phone] * (ABNORMAL) IRON + TRANSFERRIN PANEL (03/12/2025 5:44 AM CDT) Iron 20(L) 40 - 150 ug/dL 03/12/2025 6:13 AM CDT [facility] Transferrin 158(L) 174 - 382 mg/dL 03/12/2025 6:13 AM T [facility] Transferrin Saturation % 10(L) 16 - 50 % 03/12/2025 6:13 AM CDT [facility] TIBC Calculated 198(L) 240 - 450 ug/dL 03/12/2025 6:13 AM CDT [facility] Blood BLOOD SPECIMEN / Unknown Venipuncture / Unknown 03/12/2025 5:44 AM CDT 03/12/2025 5:49 AM CDT us Paul Zamarripa MD LAB - CHEMISTRY ORDERABLES Final Result [address] [address], [place] [phone] * (ABNORMAL) FERRITIN (03/12/2025 5:44 AM CDT) Ferritin 321(H) 13 - 204 ng/mL 03/12/2025 6:29 AM CDT [facility] Blood BLOOD SPECIMEN / Unknown Venipuncture / Unknown 03/12/2025 5:44 AM CDT 03/12/2025 5:49 AM CDT us Paul Zamarripa MD LAB - CHEMISTRY ORDERABLES Final Result [address] [address], [place] [phone] * (ABNORMAL) MICROALB/CREAT RATIO URINE RANDOM PANEL (03/11/2025 3:57 PM CDT) Albumin Random Urine >2,000.0 Not Established ug/mL 03/11/2025 5:16 PM CDT [facility] Creatinine Urine 90.35 Not Established mg/dL 03/11/2025 5:16 PM CDT [facility] Urine Albumin/Creati nine Ratio >2,214(H) <30 mg/g 03/11/2025 5:16 PM T [facility] Albumin/Creati nine Ratio Urine See Comment <30 mg/g 03/11/2025 5:16 PM T [facility] Comment:Unable to calculate the Urine Albumin/Creatinine Ratio due to one or more analyte concentration(s) being outside the measuring limits of the instrument. Urine URINE SPECIMEN OBTAINED BY CLEAN CATCH PROCEDURE / Unknown Collection / Unknown 03/11/2025 3:57 PM CDT 03/11/2025 4:08 PM CDT us Paul Zamarripa MD LAB - URINE CHEMISTRY ORDER CAROL Final Result [facility] [address] [place] [address], [facility] [phone] * (ABNORMAL) URINALYSIS W/MICROSCOPIC NO CULTURE (03/11/2025 2:14 PM CDT) Color UA Straw Yellow, Straw 03/11/2025 2:45 PM [facility] Clarity UA Turbid(A) Clear 03/11/2025 2:45 PM [facility] Glucose UA Normal Normal 03/11/2025 2:45 PM [facility] Bilirubin UA Negative Negative 03/11/2025 2:45 PM [facility] Ketone UA Negative Negative 03/11/2025 2:45 PM [facility] Specific [place] UA 1.012 1.005 - 1.030 03/11/2025 2:45 PM [facility] Blood UA 2+(A) Negative 03/11/2025 2:45 PM [facility] pH UA 7.0 5.0 - 8.0 03/11/2025 2:45 PM [facility] Protein UA 3+(A) Negative 03/11/2025 2:45 PM [facility] Urobilinogen UA Normal Normal mg/dL 03/11/2025 2:45 PM [facility] Nitrite UA Negative Negative 03/11/2025 2:45 PM [facility] Leukocyte Esterase UA 250 NOEL/uL(A) Negative 03/11/2025 2:45 PM CDT [facility] RBC UA 51-100(A) 0 - 5 # /hpf 03/11/2025 2:45 PM CDT [facility] WBC UA 21-50(A) 0 - 5 # /hpf 03/11/2025 2:45 PM CDT [facility] Bacteria UA 3+(A) None Seen 03/11/2025 2:45 PM CDT [facility] Squamous Epithelial Cells 3-5 0 - 5 /hpf 03/11/2025 2:45 PM CDT [facility] Urine URINE SPECIMEN OBTAINED BY CLEAN CATCH PROCEDURE / Unknown Collection / Unknown 03/11/2025 2:14 PM CDT 03/11/2025 2:18 PM CDT Paul Zamarripa MD LAB - URINALYSIS ORDERABLES Final Result Performing Organization Address City/[facility]/ZIP Co de Phone Number [address] [address], [place] [phone] * PROTEIN URINE RANDOM QUANTITATIVE (03/11/2025 2:14 PM CDT) Protein Urine 486 Not Established mg/dL 03/11/2025 3:10 PM CDT [facility] Comment:Result obtained by fadumo pritchett. Urine URINE SPECIMEN OBTAINED BY CLEAN CATCH PROCEDURE / Unknown Collection / Unknown 03/11/2025 2:14 PM CDT 03/11/2025 2:27 PM CDT us Paul Zamarripa MD LAB - URINE CHEMISTRY ORDER CAROL Final Result [address] [address], [place] [phone] * (ABNORMAL) PROTEIN CREATININE RATIO URINE RANDOM PNL (03/11/2025 2:14 PM CDT) Protein Urine 486 Not Established mg/dL 03/11/2025 5:26 PM CDT [facility] Comment:Result obtained by fadumo pritchett. Creatinine Urine 74.93 Not Established mg/dL 03/11/2025 5:26 PM CDT [facility] Comment:Result obtained by fadumo pritchett. Protein/Creati nine Ratio Urine 6.49(H) <0.10 03/11/2025 5:26 PM CDT [facility] Urine URINE SPECIMEN OBTAINED BY CLEAN CATCH PROCEDURE / Unknown Collection / Unknown 03/11/2025 2:14 PM CDT 03/11/2025 2:27 PM CDT Paul Zamarripa MD LAB - URINE CHEMISTRY ORDER CAROL Final Result Performing Organization Address City/[facility]/ZIP Co de Phone Number [address] [address], [place] [phone] * UREA NITROGEN URINE RANDOM (03/11/2025 12:09 PM CDT) Urea Nitrogen Random Urine 393 Not Established mg/dL 03/11/2025 12:40 PM CDT [facility] Urine URINE SPECIMEN OBTAINED BY CLEAN CATCH PROCEDURE / Unknown Collection / Unknown 03/11/2025 12:09 PM CDT 03/11/2025 12:13 PM CDT Paul Zamarripa MD LAB - URINE CHEMISTRY ORDER CAROL Final Result Performing Organization Address [facility]/ZIP Co de Phone Number [address] [address], [place] [phone] * OSMOLALITY URINE (03/11/2025 12:09 PM CDT) Osmolality Urine 342 50 - 1,200 mOsm/kg 03/11/2025 3:16 PM CDT [facility] Urine URINE SPECIMEN OBTAINED BY CLEAN CATCH PROCEDURE / Unknown Collection / Unknown 03/11/2025 12:09 PM CDT 03/11/2025 12:13 PM CDT Paul Zamarripa MD LAB - URINE CHEMISTRY ORDER CAROL Final Result Performing Organization Address [facility]/ZIP Co de Phone Number [address] [address], [place] [phone] * LYTES (NA K CL) URINE RANDOM PANEL (03/11/2025 12:09 PM CDT) Sodium Urine 73 Not Established mmol/L 03/11/2025 12:40 PM CDT [facility] Potassium Urine 25.3 Not Established mmol/L 03/11/2025 12:40 PM CDT [facility] Chloride Random Urine 33 Not Established mmol/L 03/11/2025 12:40 PM CDT [facility] Urine URINE SPECIMEN OBTAINED BY CLEAN CATCH PROCEDURE / Unknown Collection / Unknown 03/11/2025 12:09 PM CDT 03/11/2025 12:13 PM CDT Paul Zamarripa MD LAB - URINE CHEMISTRY ORDER CAROL Final Result Performing Organization Address City/[facility]/ZIP Co de Phone Number [address] [address], [place] [phone] * CREATININE URINE RANDOM (03/11/2025 12:09 PM CDT) Creatinine Urine 71.55 Not Established mg/dL 03/11/2025 12:40 PM CDT [facility] Urine URINE SPECIMEN OBTAINED BY CLEAN CATCH PROCEDURE / Unknown Collection / Unknown 03/11/2025 12:09 PM CDT 03/11/2025 12:13 PM CDT Paul Zamarripa MD LAB - URINE CHEMISTRY ORDER CAROL Final Result [address] [address], [place] [phone] * (ABNORMAL) CBC W/O DIFFERENTIAL (03/11/2025 6:10 AM CDT) Only the most recent of3 resultswithin the time period is included. WBC 8.0 4.0 - 10.7 x10E9/L 03/11/2025 6:21 AM CDT [facility] RBC Count 2.27(L) 3.90 - 5.20 x10E12/L 03/11/2025 6:21 AM [facility] Hemoglobin 7.8(L) 11.9 - 15.8 g/dL 03/11/2025 6:21 AM [facility] Hematocrit 22.8(L) 34.8 - 46.1 % 03/11/2025 6:21 AM [facility] MCV 100.4(H) 80.0 - 98.0 fL 03/11/2025 6:21 AM [facility] MCH 34.4(H) 26.7 - 33.6 pg 03/11/2025 6:21 AM [facility] MCHC 34.2 31.7 - 36.3 g/dL 03/11/2025 6:21 AM [facility] RDW-CV 12.6 11.3 - 14.8 % 03/11/2025 6:21 AM [facility] Platelet Count 201 150 - 420 x10E9/L 03/11/2025 6:21 AM [facility] MPV 11.8(H) 7.8 - 11.4 fL 03/11/2025 6:21 AM [facility] Blood BLOOD SPECIMEN / Unknown Venipuncture / Unknown 03/11/2025 6:10 AM CDT 03/11/2025 6:17 AM CDT us Saeed Lee MD LAB - HEMATOLOGY ORDERABLES Fi nal Result [facility] [address] [place] [address], [facility] [phone] * B-TYPE NATRIURETIC PEPTIDE (03/11/2025 6:10 AM CDT) BNP 80 <100 pg/mL 03/11/2025 6:51 AM [facility] Comment: A decision threshold of 100 [...] ORDERABLES Fin al Result Performing Organization Address City/[facility]/ZIP Co de Phone Number [address] [address], [facility] [phone] * (ABNORMAL) HEMOGLOBIN A1C (03/11/2025 3:17 AM CDT) Hemoglobin A1c 5.8(H) <=5.6 % 03/11/2025 8:53 AM CDT [facility] Estimated Average Glucose 120 mg/dL 03/11/2025 8:53 AM CDT [facility] Comment: HbA1c Interpretation: Normal : < 5.7% Pre-diabetes: 5.7-6.4% Diabetes: Equal to or greater than 6.5% Test results diagnostic of diabetes should be repeated for confirmation. Treatment target values recommended by ADA and other clinical organizations should be used to evaluate metabolic control in patients. Reference: [place] [employer] Association, Standards of Care in Diabetes [...] LAB - CHEMISTRY ORDERABLES Fin al Result [address] [place] [address], [facility] [phone] * PTT [facility] (03/11/2025 12:16 AM CDT) APTT 27.6 23.0 - 38.4 Seconds 03/11/2025 1:22 AM [facility] Comment:Suggested therapeuti c range for full dose I.V. unfractionated heparin therapy for venous thromboembolism is 71 to 109 seconds. Blood BLOOD SPECIMEN / Unknown Venipuncture / Unknown 03/11/2025 12:16 AM CDT 03/11/2025 12:29 AM CDT Saeed eLe MD LAB - COAGULATION ORDERABLES F inal Result Performing Organization Address [facility] de Phone Number [address] [address], [facility] [phone] * PT-INR [facility] (03/11/2025 12:16 AM CDT) PT 13.7 12.1 - 14.8 Seconds 03/11/2025 1:22 AM [facility] INR 1.1 See Comment 03/11/2025 1:22 AM T [facility] Comment:The suggested therap eutic range for standard coumadin (warfarin) therapy is an INR of 2.0-3.0. For high-risk patients (Mechanical Mitral Valve Prosthesis, etc.), the suggested prophylactic therapeutic range is an INR of 2.5-3.5. Blood BLOOD SPECIMEN / Unknown Venipuncture / Unknown 03/11/2025 12:16 AM CDT 03/11/2025 12:29 AM CDT Saeed Lee MD LAB - COAGULATION ORDERABLES F inal Result Performing Organization Address City/[facility]/ZIP Co de Phone Number [address] [address], [place] [phone] from Last 3 Months Insurance [employer] MEDICARE SELF PAY NO INSURANCE Member Subscriber Plan / Payer (Ef fective for All Dates) Name:Michaela Christian Member ID:Not on file Relation to Subscriber:Not on file Name:MICHAELA CHRISTIAN Subscriber ID:Not on file (Home) Address: [address] [place] [id number] Payer ID:Not on file Group ID:Not on file Type:Self Pay Address: [place], [place] Advance Directives * Full Code (Latest Code Status on File) Date Activated Date Inactivated Comments 03/10/2025 11:33 PM 03/14/2025 7:52 PM Care Teams Electrophonic Engineer Relationship Specialty Start Date End Date Randy Martinez DO [address] [place] [id number] PCP - General 12/23/07
--- OUTSIDE RECORDS SUMMARY | 2025-05-27 14:39 | XMS_ITS | Clinical Summary ---
Author Organization [facility] Address [address] [place] [address] Care Team Providers Care Concrete Rubber Name Role Phone Anisha Lyle HOSKINS Primary Care Provider [phone] Allergies No known active allergies Medications ferrous [...] optometry Assessment & Plan (08/19/2023 11:33 AM SCALPER OPERATOR): OD noncrntral edema almost resolved OS last inj IVO in December 2022 with dramatic improvement in DME DRCR discussed Assessment & Plan (12/31/2022 11:24 AM CDT): Last SUN 01/2022 Last ozurdex 08/2022 Now 4 months since last ozurdex with worsened edema and subjectively worse vision left eye (OS). IOP controlled on alphagan TID OS Consider repeat IVO OS today but will bring backroom associate at 1-2 months to assess response. Assessment & Plan (08/20/2022 8:55 AM SCALPER OPERATOR): Last SUN 01/2022 Last ozurdex 04/2022 Now [...] incidence. 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 Also received focal laser OS prior to last inj Consider repeat DESTINY OS today Assessment & Plan (07/24/2021 8:50 AM SCALPER OPERATOR): Hx of antiVEGF both eyes (OU) in [place] OD: trace noncentral DME with great vision. Rec cont observation. OS: s/p focal 05/22/21. Worsened center-involved DME. Recommend anti-VEGF injection. Assessment & Plan (05/01/2021 9:13 AM CDT): Hx of antiVEGF both eyes (OU) in [place] Stable mild non-proliferative diabetic retinopathy (NPDR) with [...] OU Assessment & Plan (11/07/2020 9:12 AM SCALPER OPERATOR): Discussed with patient Protocol V discussed Assessment & Plan (10/10/2020 11:57 AM SCALPER OPERATOR): Previously managed by Dr. Domingo Hernandez in [place] DME OU. Treated with DESTINY q8w OD [...] time Assessment & Plan (10/10/2020 11:56 AM SCALPER OPERATOR): Discussed with patient May contribute to DME Encounters Date Type Department Care Team Description 03/14/2025 Orders Only [facility] Cardiology [address] [place] [phone] Mitul Stanley MD 03/07/2025 Telephone [facility] Cardiology [address] [place] [address] Mitul Stanley MD 03/05/2025 Orders Only [facility] Health Information Management [address] [place] [address] Scanning, Provider from Last 3 Months [...] on file 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
--- OUTSIDE RECORDS SUMMARY | 2025-05-27 14:39 | XMS_ITS | Encounter Summary ---
Author Organization [facility] Healthcare Address [address] [place] [address] Care Team Providers Care Security Supervisor Name Role Phone Lyle Lancaster DO Primary Care Provider [phone] Encounter Details Date Type Department Care Team (Late st Contact Info) Description 03/05/[address] [facility] Health Information Management [address] [place] [address] Scanning, Provider Social History Tobacco Use Types Packs/Day Years Used Date Smoking Tobacco: Never Smokeless Tobacco: Never Personal Safety Answer Date Recorded Getting School Help Needed Not on file 08/19 Comments Unknown Sex and Gender Information Value Date Recorded Sex Assigned at Not on file Legal Sex Female 9:11 AM CLOD PULLER Gender Identity Not on file Sexual Orientation [...] on filedocumented in this encounter Care Teams Security Supervisor Relationship Specialty Start Date End Date Lyle Lancaster DO PCP - General Family Medicine 11/09/21 documented as of this encounter
--- OUTSIDE RECORDS SUMMARY | 2025-05-27 14:39 | XMS_ITS | Clinical Summary ---
Author Organization [facility] Address [address] [place] [address] Phone Care Team Providers Care Cardiac Monitor Technician Name Role Phone Terence Herrera MD Primary Care Provider [phone] Allergies No known active allergies Medications atorvastatin [...] on file Legal Sex Female 11:[address] [facility] Gender Identity Not on file [...] 2025 06/08/2021, 2002 Insurance CIG[employer] Care Teams Cardiac Monitor Technician Relationship Specialty Start Date End Date Terence Herrera MD [address] [place] [address] PCP - General Family Medicine 10/08/21
[2025-05-27 18:35] LABS: Hematocrit 28.5 % (37.0-47.0); Hemoglobin 9.1 g/dL (12.0-15.0); Mean Corpuscular HGB Conc 31.9 g/dl (32-36); Mean Corpuscular Hemoglobin 32.0 pg (26-34); Mean Corpuscular Volume 100.4 fl (80-100); Platelet Count Result 297 k/mm3 (150-375); Red Blood Count 2.84 M/mm3 (4.2-5.4); White Blood Count 8.6 K/mm3 (4.5-10.0)
[2025-05-27 18:41] LABS: Albumin Level 3.4 g/dL (3.5-5.1); Anion Gap 6 mmol/L (4-12); Blood Urea Nitrogen 41 mg/dL (7-17); Calcium 8.6 mg/dL (8.4-10.2); Carbon Dioxide 21 mmol/L (22-30); Chloride 112 mmol/L (98-107); Estimated Glomerular Filt Rate 12; Glucose 91 mg/dL (65-110); Potassium 4.4 mmol/L (3.4-5.0); Sodium 139 mmol/L (137-145)
[2025-05-27 18:44] LABS: Hemoglobin A1C 6.1 % (<5.7)
[2025-05-27 19:04] LABS: Parathyroid Intact 316.7 pg/mL (14.5-75.2)
[2025-05-27 19:23] LABS: Total Protein Urine Random > 600 mg/dL; Ur Ttl Prot Creatinine Ratio > 11.52 mg/mg (0-0.20)
== END 2025-05-27 14:35 | disposition home or self-care (01) ==
LOC: ANHGOSHLAB 14:37
PROVIDERS: PCP Nurse Practitioner; Visit Provider Internal Medicine Nephrology
DX: E11.9 Type 2 diabetes mellitus without complications (principal); Z79.4 Long term (current) use of insulin; I12.9 Hypertensive chronic kidney disease with stage 1 through stage 4 chronic kidney disease, or unspecified chronic kidney disease; N18.4 Chronic kidney disease, stage 4 (severe)
CPT/HCPCS: 36415; 80069; 82570; 83036; 83970; 84156; 85027

== ENCOUNTER 2025-07-07 13:47 | Outpatient (CLI) | payer MEDICARE, SELFPAY ==
--- OUTSIDE RECORDS SUMMARY | 2020-09-12 09:05 | XMS_ITS | Continuity of Care Document ---
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 Name Role Phone Domingo Hernandez MD Unavailable Unavailable Allergies, Adverse Reactions, Alerts Substance Reaction Status Criticality No Known Allergies Active No Inform ation Medications Medication Instructions Dosage Effective Dates (start - stop) Status Comments Januvia 100 mg tablet take 1 tablet by o ral route every day 100 MG - Active spironolactone 25 mg tablet take 1 tablet by oral route every day 25 MG - Active metoprolol succinate ER 100 mg tablet,extended release 24 hr take 1 tablet by oral route every day 100 MG - Active lisinopril 40 mg tablet take 1 tablet by oral route 2 times every day 40 MG - Active Lantus Solostar 100 unit/mL (3 mL) subcutaneous insulin pen inject by subcutaneous route as per insulin protocol 0.00 - Active Humalog 100 unit/mL subcutaneous cartridge inject by subcutaneous route per prescriber's instructions. Insulin dosing requires individualization. 0.00 - Active ferrous sulfate 325 mg (65 mg iron) tablet take 1 tablet by oral route every day 325 MG - Active atorvastatin 40 mg tablet take 1 tablet by oral route every day 40 MG - Active furosemide 40 mg tablet take 1 tablet by oral route every day 40 MG - Active Procedures Procedure Date OCT Scan Retina Intravitreal Injection Avastin Eylea 2 MG PFS OCT Scan Retina Intravitreal Injection Eylea 2 MG PFS OCT Scan Retina Intravitreal Injection Avastin MEDICAL EYE EXAM & TREATMENT OCT Scan Retina Intravitreal Injection Intravitreal Injection Avastin OCT Scan Retina MEDICAL EYE EXAM & TREATMENT OCT Scan Retina Intravitreal Injection Avastin MEDICAL EYE EXAM & TREATMENT OCT Scan Retina Intravitreal Injection Avastin OCT Scan Retina Intravitreal Injection Avastin OCT Scan Retina Intravitreal Injection Avastin OCT Scan Retina Intravitreal Injection Avastin OCT Scan Retina Intravitreal Injection Avastin OCT Scan Retina Intravitreal Injection Avastin OCT Scan Retina Intravitreal Injection Avastin OCT Scan Retina Intravitreal Injection Avastin OCT Scan Retina Intravitreal Injection Avastin OCT Scan Retina Intravitreal Injection Avastin OCT Scan Retina Intravitreal Injection Avastin OCT Scan Retina Intravitreal Injection Avastin OCT Scan Retina Avastin Intravitreal Injection OCT Scan Retina Intravitreal Injection Intravitreal Injection Avastin Intravitreal Injection Avastin MEDICAL EYE EXAM & TREATMENT OCT Scan Retina MEDICAL EYE EXAM & TREATMENT OCT Scan Retina MEDICAL EYE EXAM & TREATMENT OCT Scan 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, [place], [id number], [place]. tel:[phone] [facility], [address], [place], [id number], [place] tel:[phone] [facility] DM with DR and Edema (chief complaint) DM, type 2, mild background retinopathy w/ macular edema, bilateral Dec-[address], [place], [id number], [place]. tel:[phone] [facility], [address], [place], [id number], [place] tel:[phone] [facility] Dm with DR and edema (chief complaint) DM, type 2, mild background retinopathy w/ macular edema, bilateral Nov- 0- [address], [place], [id number], [place]. tel:[phone] [facility], [address], [place], [id number], [place] tel:[phone] [facility] decreased vision (chief complaint) DM, type 2, mild background retinopathy w/ macular edema, bilateral Oct-[address], [place], [id number], [place]. tel:[phone] [facility], [address], [place], [id number], [place] tel:[phone] [facility] DM with mild DR and macular edema (chief complaint) DM, type 2, mild background retinopathy w/ macular edema, bilateral Sep-[address], [place], [id number], [place]. tel:[phone] [facility], [address], [place], [id number], [place] tel:[phone] [facility] diabetic eye exam (chief complaint) DM, type 2, mild background retinopathy w/ macular edema, bilateralPost erior Capsule Opacification , left eye Mar- [address], [place], [id number], [place]. tel:[phone] [facility], [address], [place], [id number], [place] tel:[phone] [facility] DM (chief complaint) DM, type 2, mild background retinopathy w/ macular edema, bilateralPost erior Capsule Opacification , left eye [address], [place], [id number], [place]. tel:[phone] [facility], [address], [place], [id number], [place] tel:[phone] [facility] DM w/ mac edema (chief complaint) DM, type 2, mild background retinopathy w/ macular edema, bilateral Nov- [address], [place], [id number], [place]. tel:[phone] [facility], [address], [place], [id number], [place] tel:[phone] [facility] DME (chief complaint) DM, type 2, mild background retinopathy w/ macular edema, bilateral Feb-[address], [place], [id number], [place]. tel:[phone] [facility], [address], [place], [id number], [place] tel:[phone] [facility] DM, type 2, mild background retinopathy w/ macular emeka (chief complaint) DM, type 2, mild background retinopathy w/ macular edema, bilateral Dec-[address], [place], [id number], [place]. tel:[phone] [facility], [address], [place], [id number], [place] tel:[phone] [facility] diabetic eye exam (chief complaint) DM, type 2, mild background retinopathy w/ macular edema, bilateral Jul- [address], [place], [id number], [place]. tel:[phone] [facility], [address], [place], [id number], [place] tel:[phone] [facility] diabetic eye exam (chief complaint) DM, type 2, mild background retinopathy w/ macular edema, bilateral Oct-[address], [place], [id number], [place]. tel:[phone] [facility], [address], [place], [id number], [place] tel:[phone] [facility] diabetic eye exam (chief complaint) DM, type 2, mild background retinopathy w/ macular edema, bilateral [address], [place], [id number], [place]. tel:[phone] [facility], [address], [place], [id number], [place] tel:[phone] [facility] diabetic eye exam (chief complaint) DM, type 2, mild background retinopathy w/ macular edema, bilateral [address], [place], [id number], [place]. tel:[phone] [facility], [address], [place], [id number], [place] tel:[phone] [facility] DM w/ mac edema (chief complaint) DM, type 2, mild background retinopathy w/ macular edema, bilateral [address], [place], [id number], [place]. tel:[phone] [facility], [address], [place], [id number], [place] tel:[phone] [facility] diabetic eye exam (chief complaint) DM, type 2, mild background retinopathy w/ macular edema, bilateral [address], [place], [id number], [place]. tel:[phone] [facility], [address], [place], [id number], [place] tel:[phone] [facility] diabetic eye exam (chief complaint) DM, type 2, mild background retinopathy w/ macular edema, bilateral Oct- [address], [place], [id number], [place]. tel:[phone] [facility], [address], [place], [id number], [place] tel:[phone] [facility] diabetic eye exam (chief complaint) DM, type 2, mild background retinopathy w/ macular edema, bilateral [address], [place], [id number], [place]. tel:[phone] [facility], [address], [place], [id number], [place] tel:[phone] [facility] diabetic eye exam (chief complaint) DM, type 2, mild background retinopathy w/ macular edema, bilateral [address], [place], [id number], [place]. tel:[phone] [facility], [address], [place], [id number], [place] tel:[phone] [facility] diabetic eye exam (chief complaint) DM, type 2, mild background retinopathy w/ macular edema, bilateral Nov-1 3-[address], [place], [id number], [place]. tel:[phone] [facility], [address], [place], [id number], [place] tel:[phone] [facility] DM with macular edema (chief complaint) DM, type 2, mild background retinopathy w/ macular edema, bilateral Oct-1 5-[address], [place], [id number], [place]. tel:[phone] [facility], [address], [place], [id number], [place] tel:[phone] [facility] diabetic eye exam (chief complaint) DM, type 2, mild background retinopathy w/ macular edema, bilateralPost erior Capsule Opacification , left eye Oct-1 0-[address], [place], [id number], [place]. tel:[phone] [facility], [address], [place], [id number], [place] tel:[phone] [facility] diabetic eye exam (chief complaint) DM, type 2, mild background retinopathy w/ macular edema, bilateral Apr-0 6-[address], [place], [id number], [place]. tel:[phone] [facility], [address], [place], [id number], [place] tel:[phone] [facility] diabetic eye exam (chief complaint) DM, type 2, mild background retinopathy w/ macular edema, bilateral Dec-0 1-[address], [place], [id number], [place]. tel:[phone] [facility], [address], [place], [id number], [place] tel:[phone] [facility] diabetic eye exam (chief complaint) DM, type 2, mild background retinopathy w/ macular edema, bilateral [address], [place], [id number], [place]. tel:[phone] Family History Family Member Type Diagnosis Age At Onset No Information Payers Payer name Insurance type Covered republican ID Mauri zuluaga(s) [employer] Ahaali CI [id number] [employer] Card Program CI [id number] Social History Type Description Quantity Date Captured Comments Alcohol Use Details No Caffeine Use Details Unknown Tobacco Use Status No Information Smoking Status Never smoker Sex Female Chief Complaint And Reason For Visit From encounter dated '09/12/2020 14:05'. DM w/ mac edema (chief complaint). Description: The 65 year old female presents for evaluation of DM w/ mac edema in the right eye and left eye.*Planned DESTINY OD and SUN OS TODAY* Reason For Referral Reason For Referral No Information History Of Present Illness Encounter Date Complaint History Of Prese nt Illness DM w/ mac edema The 65 year old female presents for evaluation of DM w/ mac edema in the right eye and left eye.*Planned DESTINY OD and SUN OS TODAY* DM with DR and Edema The 65 year old female presents for evaluation of DM with DR and Edema. No vision changes noted today.SUN OS planned today Dm with DR and edema The 65 year old female presents for evaluation of DM with DR and edema OU.- Planned DESTINY OD today - SUN OS: 07/26/2020 decreased vision The 65 year old female presents for evaluation of decreased vision in the left eye. Pt states that VA has been blurry OS for one week. Pt states that she noticed it come on suddenly. DM with mild DR and macular emeka a The 65 year old female presents for evaluation of DM with mild DR and macular edema in the right eye and left eye.DESTINY OU diabetic eye exam The 64 year ol d female presents for evaluation of diabetic eye exam with DESTINY in the right eye and left eye. BS high 100s. May-22-2020 DM The 64 year old female presents for evaluation of DM with BROOMMAKER & ME in the right eye and left eye. Possible DESTINY OU today. BG runs around 110-200. A1c 6.9% yesterday. DM w/ mac edema The 64 year old female presents for evaluation of DM w/ mac edema in the right eye and left eye.DESTINY OU TODAY DME The 64 year old female presents for evaluation of DME in the right eye and left eye with DESTINY OU. DM, type 2, mild ronald kground retinopathy w/ macular emeka The 64 year old female presents for evaluation of DM, type 2, mild background retinopathy w/ macular emeka in the right eye and left eye. Pt states that she doesn't have any new VA complaints or concerns OU.DESTINY OU TODAY diabetic eye exam The 64 year ol d female presents for evaluation of DM, type 2, mild background retinopathy w/ macular edema in the right eye and left eye. *DESTINY OU scheduled for today. diabetic eye exam The 64 year ol d female presents for evaluation of diabetic eye exam in the right eye and left eye.Type 2 DM with mild retinopathy and macular edema OU.DESTINY OU diabetic eye exam The 63 year ol d female presents for evaluation of diabetic eye exam with BROOMMAKER and macular edema in the right eye and left eye. Blood sugar is up and down right now. Last A1C same as last visit 6.1-6.3.Patient here for DESTINY OU. diabetic eye exam The 63 year ol d female presents for evaluation of diabetic eye exam w/Macular edema in the right eye and left eye. Bs's are in the low 100's, high 90's. A1c was low 6's, checked in early January 2019DESTINY OU DM w/ mac edema The 63 year old female presents for evaluation of DM w/ mac edema in the right eye and left eye.*EDSTINY OU TODAY* diabetic eye exam The 63 year ol d female presents for evaluation of diabetic eye exam in the right eye and left eye. DESTINY OU planned today. No vision changes noticed. diabetic eye exam The 63 year ol d female presents for evaluation of diabetic eye exam in the right eye and left eye with DESTINY OU diabetic eye exam The 63 year ol d female presents for evaluation of diabetic eye exam with mild retinopathy and mac edema in the right eye and left eye.DESTINY OU today. diabetic eye exam The 63 year ol d female presents for evaluation of diabetic eye exam with mild background retinopathy and mac edema in the right eye and left eye.DESTINY OU schedule for today. diabetic eye exam The 63 year ol d female presents for evaluation of diabetic eye exam in the right eye and left eye. Mild BROOMMAKER with edema OU.DESTINY OU DM with macular edema The 63 yea r old female presents for evaluation of DM with macular edema in the right eye and left eye.DESTINY OU today. diabetic eye exam The 63 year ol d female presents for evaluation of diabetic eye exam in the right eye and left eye with DME OU. Possible DESTINY OU today. Patient states she has not noticed any changes in her vision.Blood sugar is up and down per patient. Last A1C was 5.8 in March. diabetic eye exam The 62 year ol d female presents for evaluation of diabetic eye exam in the right eye and left eye. Possible DESTINY OU if needed. Blood sugar regulated. Last A1C: 6.8 (November 2017) diabetic eye exam The 62 year ol d female presents for evaluation of diabetic eye exam in the right eye and left eye.A1C: 7.7 (05/2017)BS: 147*Possible DESTINY OU TODAY* diabetic eye exam The 62 year ol d female presents for evaluation of diabetic eye exam in the right eye and left eye. Pt states vision has been stable. No complaints. Referred by Dr. Godoy ([place], [place]). was told there was swelling in the back of the eye to diabetes. Was given Ketorolac to use 2-3 times a day. BS - [id number] - Last A1C was 7.7 (05/21/2007) Functional Status Date Functional Assessmen t No Information Instructions Date Instruction Additional Infor valentin Return in PRN Related to DM, t ype 2, mild background retinopathy w/ macular edema, bilateral Impression/Plan - Av astin injection OD today. Eylea injection OS today. Risks, benefits, and alternatives reviewed with patient, who agrees to proceed.OD: DESTINY OD today; has been stable on DESTINY OD q8 weeks. Next appt with Dr. Correa's office at [facility] in [place] 10/10/20 (4 weeks from today). Given excellent BCVA OD, could consider observation or other regimen in an attempt to decrease her number of injections OD.OS: SUN OS today; continue q4 weeks as central DME continues to improve. Switched to Eylea OS 06/30/20 with good response. Next appt with Dr. Correa's office 10/10/20 (4 weeks from today). Patient is moving to [place] this month (September 2020). Has appointment with Dr. Mike Correa at [facility] in [facility] on 10/10/20. We will be sending chart notes after today's visit for patient to continue care with Dr. Correa. Related to DM, type 2, mild background retinopathy w/ macular edema, bilateral Follow up - Return in PRN Relate d to DM, type 2, mild background retinopathy w/ macular edema, bilateral Impression/Plan - Ya g laser capsulotomy OS in future as symptoms dictate. 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 Brian Hernandez for dilated exam and [place] [place] 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 Risks, benefits, and alternatives reviewed with patient, who agrees to proceed. OD: DESTINY OD; continue q8 weeks; next due 09/12/20OS: SUN OS today interval; next due in 4 weeks on 09/12/20Patient will be moving to [facility] in September, recommend patient call [facility] Retinal department to set up appointment to continue care once she moves. 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 Domingo Hernandez for dilated exam and OCT (mac). DESTINY OD AND SUN OS on 09/12/20 Related to DM, type 2, mild background retinopathy w/ macular edema, bilateral Return in [address] [facility] [address] Hernandez for mac OCT, dilated exam and DESTINY OD.Return as planned 07/26/20 for mac OCT, dilated exam and SUN OS. Related to DM, type 2, mild background retinopathy w/ macular edema, bilateral Follow up - Return i n [address] Hernandez for mac OCT, dilated exam and DESTINY OD.Return as planned 07/26/20 for mac OCT, dilated exam and SUN OS. Related to DM, type 2, mild background retinopathy w/ macular edema, bilateral Impression/Plan - Re commend switching to Eylea injection OS today. Risks, benefits, and alternatives reviewed with patient, who agrees to proceed. OD: DESTINY OD today; continue q8 week intervalOS: Continue q4 week USN OS interval; next due 08/08/20Patient will be moving to [facility] in September, recommend patient call [facility] Retinal department to set up appointment to continue care once she moves. Related to DM, type 2, mild background retinopathy w/ macular edema, bilateral Return on 07/12/[address] Hernandez for DFE, Mac OCT OU, DESTINY OD only.Return in [address] Hernandez for DFE, Mac OCT OU, SUN OS. Related to DM, type 2, mild background retinopathy w/ macular edema, bilateral Impression/Plan - Re commend switching to Eylea injection OS today. Risks, benefits, and alternatives reviewed with patient, who agrees to proceed. SUN OS today: next due in 4 weeks.EDSTINY OD: next due on 07/12/2020.[employer] paperwork filled out/scanned today. Related to DM, type 2, mild background retinopathy w/ macular edema, bilateral Follow up - Return o n 07/12/[address] Hernandez for DFE, Mac OCT OU, DESTINY OD only.Return in [address] Hernandez for DFE, Mac OCT OU, SUN OS. Related to DM, type 2, mild background retinopathy w/ macular edema, bilateral Return in [address] Hernandez for mac OCT, dilated exam and DESTINY OU. Related to DM, type 2, mild background retinopathy w/ macular edema, bilateral Follow up - Return i n [address] Hernandez for mac OCT, dilated exam and DESTINY OU. 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 Risks, benefits, and alternatives reviewed with patient, who agrees to proceed. DESTINY OU today: Continue q8 weeks indefinitely. Related to DM, type 2, mild background retinopathy w/ macular edema, bilateral Return in [address] [facility] [address] Hernandez for mac OCT, dilated exam and DESTINY OU. 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 Risks, benefits, and alternatives reviewed with patient, who agrees to proceed. DESTINY OU today: Next DESTINY OU due in 8 weeks. Related to DM, type 2, mild background retinopathy w/ macular edema, bilateral Follow up - Return i n [address] Hernandez for mac OCT, dilated exam and DESTINY OU. Related to DM, type 2, mild background retinopathy w/ macular edema, bilateral Return in [address] [facility] [address] Hernandez for mac OCT, dilated exam and DESTINY OU. Related to DM, type 2, mild background retinopathy w/ macular edema, bilateral Follow up - Return i n [address] Hernandez for mac OCT, dilated exam and DESTINY OU. 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 Risks, benefits, and alternatives reviewed with patient, who agrees to proceed. DESTINY OU today: Next DESTINY OU due in 8 weeks. 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 Domingo Hernandez for dilated exam/MAC OCT/DESTINY OU Related to DM, type 2, mild background retinopathy w/ macular edema, bilateral Impression/Plan - Re commend repeat intravitreal Avastin injection. Risks, benefits, and alternatives reviewed with patient, who agrees to proceed. DESTINY OU today: Next DESTINY OU due in 7-8 weeks. Related to DM, type 2, mild background retinopathy w/ macular edema, bilateral Follow up - Return i n [address] Domingo Hernandez for dilated exam/MAC OCT/DESTINY OU with MR OU per BC and complete exam Related to DM, type 2, mild background retinopathy w/ macular edema, bilateral Return in 7-[address] Hernandez for mac OCT, dilated exam and DESTINY OU. Related to DM, type 2, mild background retinopathy w/ macular edema, bilateral Follow up - Return i n 7-[address] Hernandez for mac OCT, dilated exam and DESTINY OU. 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 Risks, benefits, and alternatives reviewed with patient, who agrees to proceed. DESTINY OU today: Next DESTINY OU due in 7-8 weeks. Related to DM, type 2, mild background retinopathy w/ macular edema, bilateral Return in 6-[address] Hernandez for dilated exam, MAC OCT and DESTINY OU. 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 Risks, benefits, and alternatives reviewed with patient, who agrees to proceed. DESTINY OU today: Next DESTINY OU due in 6-7 weeks. Related to DM, type 2, mild background retinopathy w/ macular edema, bilateral Follow up - Return i n 6-[address] Hernandez for dilated exam, MAC OCT and DESTINY OU. Related to DM, type 2, mild background retinopathy w/ macular edema, bilateral Return in [address] Hernandez for mac OCT, dilated exam and DESTINY OU. Related to DM, type 2, mild background retinopathy w/ macular edema, bilateral Follow up - Return i n [address] Hernandez for mac OCT, dilated exam and DESTINY OU. 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 Risks, benefits, and alternatives reviewed with patient, who agrees to proceed. DESTINY OU today: Next DESTINY OU due in 6 weeks. Related to DM, type 2, mild background retinopathy w/ macular edema, bilateral Return in [address] Hernandez for mac OCT, dilated exam and DESTINY OU. Related to DM, type 2, mild background retinopathy w/ macular edema, bilateral Follow up - Return i n [address] Hernandez for mac OCT, dilated exam and DESTINY OU. 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 Risks, benefits, and alternatives reviewed with patient, who agrees to proceed. DESTINY OU today: Next DESTINY OU due in 6 weeks. Related to DM, type 2, mild background retinopathy w/ macular edema, bilateral Return in [address] Hernandez for mac OCT, dilated exam and DESTINY OU. Related to DM, type 2, mild background retinopathy w/ macular edema, bilateral Follow up - Return i n [address] Hernandez for mac OCT, dilated exam and DESTINY OU. 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 Risks, benefits, and alternatives reviewed with patient, who agrees to proceed. DESTINY OU today. Decrease TREX: Next DESTINY OU due in 6 weeks. 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 Risks, benefits, and alternatives reviewed with patient, who agrees to proceed. DESTINY OU today. Continue TREX: Next DESTINY OU due in 8 weeks.Consider decreasing interval or switching to Eylea if worsening DME at next visit. Related to DM, type 2, mild background retinopathy w/ macular edema, bilateral Follow up - Return i n [address] Domingo Hernandez for dilated exam -- MAC OCT, DESTINY OU. 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 Hernandez for mac OCT, dilated exam and DESTINY OU. 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 Risks, benefits, and alternatives reviewed with patient, who agrees to proceed. DESTINY OU today. Initiate TREX: Next DESTINY OU due in 6 weeks. Related to DM, type 2, mild background retinopathy w/ macular edema, bilateral Follow up - Return i n [address] Hernandez for mac OCT, dilated exam and DESTINY OU. 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 Hernandez for mac OCT, dilated exam and DESTINY OU. Related to DM, type 2, mild background retinopathy w/ macular edema, bilateral Follow up - Return i n [address] Hernandez for mac OCT, dilated exam and DESTINY OU. 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 Risks, benefits, and alternatives reviewed with patient, who agrees to proceed. DESTINY OU today. 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 Hernandez for mac OCT, dilated exam and DESTINY OU. 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 Risks, benefits, and alternatives reviewed with patient, who agrees to proceed. Next injections due in 4 weeks. Related to DM, type 2, mild background retinopathy w/ macular edema, bilateral Follow up - Return i n [address] Hernandez for mac OCT, dilated exam and DESTINY OU. 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 Hernandez for mac OCT, dilated exam and DESTINY OU. Related to DM, type 2, mild background retinopathy w/ macular edema, bilateral Follow up - Return i n [address] Hernandez for mac OCT, dilated exam and DESTINY OU. Related to DM, type 2, mild background retinopathy w/ macular edema, bilateral Impression/Plan - Re commend intravitreal Avastin injections OU. Risks, benefits, and alternatives discussed with patient, including risk of permanent vision loss. Patient agrees to proceed. Next injections due in 4 weeks. 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 Hernandez for mac OCT, dilated exam and DESTINY OU. Related to DM, type 2, mild background retinopathy w/ macular edema, bilateral Follow up - Return i n [address] Hernandez for mac OCT, dilated exam and DESTINY OU. Related to DM, type 2, mild background retinopathy w/ macular edema, bilateral Impression/Plan - Re commend intravitreal Avastin injections OU. Risks, benefits, and alternatives discussed with patient, including risk of permanent vision loss. Patient agrees to proceed. 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 Hernandez for mac OCT, dilated exam and DESTINY OU. Related to DM, type 2, mild background retinopathy w/ macular edema, bilateral Follow up - Return i n [address] Hernandez for mac OCT, dilated exam and DESTINY OU. Related to DM, type 2, mild background retinopathy w/ macular edema, bilateral Impression/Plan - Re commend intravitreal Avastin injections OU. Risks, benefits, and alternatives discussed with patient, including risk of permanent vision loss. Patient agrees to proceed. 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 Hernandez for mac OCT, dilated exam and injection- DESTINY OU. Related to DM, type 2, mild background retinopathy w/ macular edema, bilateral Jun- Follow up - Return i n [address] Hernandez for mac OCT, dilated exam and injection- DESTINY OU. Related to DM, type 2, mild background retinopathy w/ macular edema, bilateral Jun- Impression/Plan - Re commend intravitreal Avastin injections OU. Risks, benefits, and alternatives discussed with patient, including risk of permanent vision loss. Patient agrees to proceed. Related to DM, type 2, mild background retinopathy w/ macular edema, bilateral Return in 1-[address] Domingo Hernandez for DFE, DESTINY OU. 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 Related to Posterior Capsule Opacification, left eye Jun- Follow up - Return i n 1-[address] Domingo Hernandez for DFE, EDSTINY OU. 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 Risks, benefits, and alternatives discussed with patient, including risk of permanent vision loss. 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 Domingo Hernandez for dilated exam , OCT (mac), possible DESTINY OU if DME worse (bring 3 DESTINY to [facility]). 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 No DESTINY injection today. Consider treatment in future if DME worsens. 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 Domingo Hernandez for dilated exam , OCT (mac). 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 If DME worsening, consider Avastin injections in the future. 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 Domingo Hernandez for dilated exam , OCT (mac). 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 Domingo Hernandez for dilated exam , OCT (mac). 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 Domingo Hernandez for dilated exam , OCT (mac). 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 Condition: Worse OD 8 weeks s/p DESTINY. Improved DME after switching to Eylea OS assessment Posterior Capsule Opacification, left eye impression Posterior Capsule Op acification, left eye: H26.492 OS. Vision: stable, pt not symptomatic at this time Patient Care Teams Name Effective Dates (start - stop) Status Members No Information
--- OUTSIDE RECORDS SUMMARY | 2025-07-07 14:21 | XMS_ITS | Patient Health Record ---
Author Organization [facility] Address [address] [place] [address] Care Team Providers Care Gas Utility Worker Name Role Phone Gale Sweeney PA-C Primary Care Provider Rashad Blue Unavailable [phone] Reason For Referral No Information Medications Medication [...] Notes Problem Dermatochalasis of both upper eyelids (58177593056404253) Dermatochalasis of both upper eyelids (H02.831) Active confirmed Problem Artificial lens present (finding) (663879509) Pseudophakia, both eyes (Z96.1) Active confirmed Problem Long-term current use of insulin (541071634) Insulin long-term use (Z79.4) Active confirmed Problem Presbyopia (67996313) Bilateral presbyopia (H52.4) Active confirmed Problem Mild nonproliferative retinopathy due to type 2 diabetes mellitus (572084202814779) Type 2 diabetes mellitus with mild nonproliferative diabetic retinopathy with macular edema, bilateral (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 Sweeney Congestive heart failure PAST EYE MEDICATIONS USED Ofloxacin Prednisolone Ketorolac Surgical History Surgery Date(Month/Year) Cataract surgery with IOL OD by Dr. Deana llanos 08/24/2015 Cataract surgery with IOL OS by Dr. Deana llanos 08/10/2015 section x2 Tubal ligation Hysterectomy Hospitalization History Reason Date(Month/Year) For surgeries
--- OUTSIDE RECORDS SUMMARY | 2025-07-07 14:21 | XMS_ITS | Patient Health Record ---
Author Organization [facility] Address [address] [facility] [address] [place], [place] [address] Care Team Providers Care Customs Import Specialist Name Role Phone DEBBIETRISTAN Primary Care Provider REASON FOR REFERRAL No Information MEDICATIONS Medication SIG (Take, Route, Frequency, Duration) Notes Start Date End Date Status metFORMIN HCl 500 MG take 1 tablet by mouth twice a day with meals Orally bid for 90 days Active Furosemide 40 MG 1 tablet Orally Once a day PRN for 90 days taking daily regularly 08/22/2014 Active Ferrous Sulfate 325 (65 Fe) MG 1 tablet Orally Twice a day for 90 days 04/14/2014 Active Toprol XL 50 mg 1 tablet Orally bid Active NovoLOG FlexPen 100 UNIT/ML BS 150 or less is 10 units, 150-200=12u, 200-250=14u 250-300=16u 300-350=18u Subcutaneous three times a day Active Spironolactone 25MG TAKE 1 TABLET DAILY Active Vaseline . apply to affected area Externally Two to Three times daily for 07 04/01/2016 Active Auto-PAP . 10-20cm H20, heated humidity, Ramp of 10 min, EPR of 1 and for a mask fitting as needed for as directed 05/20/2016 Active Atorvastatin Calcium 40 MG 1 tablet once a day orally 30 days Oral Once a day for 90 days 10/22/2016 Active Lisinopril 40 MG 1 tablet Orally Once a day for 90 days 10/22/2016 Active Spironolactone 25 1 tablet Orally Once a day for 90 days Active HumaLOG KwikPen 100 UNIT/ML 10 units if BS 150 or below, 150-200=12u, 200-250=14units, 250-300=16u, 300-350=18u Subcutaneous Three times a day with meals 05/14/2016 Active Lantus SoloStar 1 inject 55 units at bedtime subcutaneously daily. Subcutaneous once daily Active OneTouch Delica Lancing Dev 1 as directed in vitro bid DX: 250.00 for 90 days 04/06/2015 Active BD Pen Needle Ultrafine 1 DIRECTED DAILY IN VITRO 90 DAYS for 84 Active Pen [place] 3/16 31G X 5 MM as directed . daily for 90 days 03/24/2015 Active One Touch Delica Lancets 1 use 1 in vitro bid DX: 250.00 for 90 days 04/06/2015 Active OneTouch Ultra Test 1 USE TO TEST BLOOD SUGARS TWICE DAILY In Vitro twice a day for 90 days 09/21/2015 Unknown IMMUNIZATIONS Vaccine Route Administration Date Status Comme nts TETANUS, DIPHTHERIA, ACELLULAR PERTUSSIS (Tdap), 7+ yrs IM Intramuscular 08/01/2014 Administered SOCIAL HISTORY Tobacco Use: Social History Observation Description Date Details (start date - stop date) Never Smoker NA - NA Sex Assigned At : Social History Observation Description Sex Assigned At Unknown Tobacco Use/Smoking Question Answer Notes Are you a nonsmoker PROBLEMS Problem Type ICD Code Onset Dates Problem Status W/U Status Risk SNOMED Code Notes Problem Mixed hyperlipidemia (E78.2) Active confirmed 61575429 Problem Cataract (H26.9) Active confirmed 25948 0009 Problem JAMES on CPAP (G47.33) Active confirmed 45548915 Problem Iron deficiency anemia, unspecified (D50.9) Active confirmed 07527222 Problem Essential (primary) hypertension (I10) Active confirmed 08194455 Problem Kidney disease, chronic, stage III (GFR 30-59 ml/min) (N18.3) Active confirmed 724527022 Problem Heart failure, unspecified (I50.9) Active confirmed 42187317 Problem History of dysplastic nevus (Z86.018) Active confirmed 3868579979697 Problem 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 Merino Hypertension HM: Mammo -07/24/16, Dexa - 07/23; Normal 2% total and 1% hip, C-scope -declines 07/2016 ifobt declines 2016, Pap - hysterectomy for benign reasons, Vaccines - declines 2016 Sleep apnea - dx 05/24 Surgical History Surgery Date(Month/Year) section x2 hysterectomy, total with bilateral salpi campoverde-oophorectomy (BSO) 1998 tubal ligation ankle surgery for fracture as child bilateral catarct surgery 08/2015 Punch excision - mild dysplastic nevus - upper right arm - JS Punch excision - mild dysplas tic nevus - upper mid back Hospitalization History Reason Date(Month/Year) with surgeries and child
--- OUTSIDE RECORDS SUMMARY | 2025-07-07 14:21 | XMS_ITS | Encounter Summary ---
Author Organization [facility] Address [address] [place] [address] Care Team Providers Care Hardwood Floor Sander Name Role Phone Lyle Lancaster DO Primary Care Provider [phone] Susan Chaudhry NP Primary Care Provider [phone] Encounter Details Date Type Department Care Team (Late st Contact Info) Description 03/05/2025 Orders Only [facility] Health Information Management [address] [place] [address] Scanning, Provider Social History Tobacco Use Types Packs/Day Years Used Date Smoking Tobacco: Never Smokeless Tobacco: Never Comments Unknown Sex and Gender Information Value Date Recorded Sex Assigned at Not on file Legal Sex Female 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 Gender Identity Not on file Sexual Orientation Not on file documented as of this encounter Plan of Treatment Not on file documented as of this encounter Procedures Procedure Name Priority Date/Time Associated Diagnosis Comments SCAN - RADIOLOGY/IMAGING 03/04/2025 documented in this encounter Results * SCAN - RADIOLOGY/IMAGING (03/04/2025) Anatomical Region Laterality Modality Other us Provider Scanning Edited Result - Final documented in this encounter Visit Diagnoses Not on filedocumented in this encounter Care Teams Hardwood Floor Sander Relationship Specialty Start Date End Date Lyle Lancaster DO PCP - General Family Medicine 11/09/21 06/19/25 Susan Chaudhry, SUPERVISOR DRYING [address] [place] [address] [place] [address] PCP - General Nurse Practitioner 06/20/25 documented as of this encounter
--- OUTSIDE RECORDS SUMMARY | 2025-07-07 14:21 | XMS_ITS | Clinical Summary ---
Author Organization [facility] Address [address] [place] [address] Care Team Providers Care Card Feeder Name Role Phone Susan Chaudhry NP Primary Care Provider [phone] Allergies No known active allergies Medications ferrous [...] (25 mg total) by mouth daily Active amLODIPine (NORVASC) 10 mg tablet Take 1 tablet (10 mg total) by mouth daily Active brimonidine (ALPHAGAN P) 0.1 % drops Administer 1 drop into the left eye 3 (three) times a day 10 mL 3 2 Active Additional Information Patient not taking.Reported on 06/20/2025 nitrofurantoin (MACRODANTIN) 50 mg capsule TAKE 1 [...] total) by mouth every morning 4 Active NIFEdipine CC 90 mg 24 hr tablet Take 1 tablet (90 mg total) by mouth daily 5 Active sodium bicarbonate 650 mg tablet Take 1 tablet (650 mg total) by mouth 2 (two) times a day Active hydrALAZINE (APRESOLINE) 50 mg tablet Take 1 tablet (50 mg total) by mouth 3 (three) times a day Active aspirin 81 mg chewable tablet Take 1 tablet (81 mg total) by mouth daily Active minoxidiL (LONITEN) 2.5 mg tabletIndicatio ns:hypertension Take 1 tablet (2.5 mg total) by mouth daily 30 tablet 5 026 Active aspirin 325 mg tablet Take 1 tablet (325 mg total) by mouth daily 025 Discontin ued(Patie nt Reported) minoxidiL (LONITEN) 2.5 mg tabletIndicatio ns:hypertension Take 1 tablet (2.5 mg total) by mouth daily 14 tablet 5 025 Discontin ued(Reord er) Active Problems Problem Noted Date Diagnosed Date Hypertension associated with diabetes 06/20/2025 Hyperlipidemia associated with type 2 diabetes m rudi 06/20/2025 Both eyes affected by mild n onproliferative [...] optometry Assessment & Plan (08/19/2023 11:33 AM HISTORICAL MANUSCRIPTS CURATOR): OD noncrntral edema almost resolved OS last inj IVO in December 2022 with dramatic improvement in DME DRCR discussed Assessment & Plan (12/31/2022 11:24 AM CDT): Last SUN 01/2022 Last ozurdex 08/2022 Now 4 months since last ozurdex with worsened edema and subjectively worse vision left eye (OS). IOP controlled on alphagan TID OS Consider repeat IVO OS today but will bring back hanger at 1-2 months to assess response. Assessment & Plan (08/20/2022 8:55 AM HISTORICAL MANUSCRIPTS CURATOR): Last SUN 01/2022 Last ozurdex 04/2022 Now [...] incidence. Assessment & Plan (09/11/2021 9:07 AM HISTORICAL MANUSCRIPTS CURATOR): OD stable with minimal NCI-DME OS with persistent CI-DME s/p focal 05/22/21 and now 7 week s/p DESTINY for DME. Also received focal laser OS prior to last inj Consider repeat DESTINY OS today Assessment & Plan (07/24/2021 8:50 AM HISTORICAL MANUSCRIPTS CURATOR): Hx of antiVEGF both eyes (OU) in [place] OD: trace noncentral DME with great vision. Rec cont observation. OS: s/p focal 05/22/21. Worsened center-involved DME. Recommend anti-VEGF injection. Assessment & Plan (05/01/2021 9:13 AM CDT): Hx of antiVEGF both eyes (OU) in [place] Stable mild non-proliferative diabetic retinopathy (NPDR) with [...] OU Assessment & Plan (11/07/2020 9:12 AM HISTORICAL MANUSCRIPTS CURATOR): Discussed with patient Protocol V discussed Assessment & Plan (10/10/2020 11:57 AM HISTORICAL MANUSCRIPTS CURATOR): Previously managed by Dr. Domingo Hernandez in [place] DME OU. Treated with DESTINY q8w OD [...] time Assessment & Plan (10/10/2020 11:56 AM HISTORICAL MANUSCRIPTS CURATOR): Discussed with patient May contribute to DME Encounters Date Type Department Care Team Description 07/01/2025 Telephone [facility] Cardiology [address] [place] [phone] Jusitn Perea MD 06/23/2025 Results Follow-Up [facility] Cardiology [address] [place] [phone] Maricruz Mason RN SCAN - RADIOLOGY/IMAGING 06/20/2025 1:15 PM CDT Office Visit [facility] Cardiology [address] [place] [phone] Justin Perea MD Hypertension associated with diabetes (HCC) (Primary Dx); Hyperlipidemia associated with type 2 diabetes mellitus (HCC); Obesity, class 3 (E66.813); Body mass index [BMI] 40.0-44.9, adult (Z68.41) from Last 3 Months Surgical History Surgery Date Site/Laterality Comments CATARACT EXTRACTION 08/24/[address] Rashad Godoy CATARACT EXTRACTION 08/10/[address] Rashad Godoy Medical History Medical History Date Comments Hypertension Diabetes mellitus Chronic kidney disease Diabetic retinopathy (HCC) Family History Medical History Relation Name Comments Diabetes Father Heart attack Father Hypertension Father Alzheimer's disease Mother Cancer Mother Glaucoma Neg Hx Macular degeneration Neg Hx Relation Name Status Comments Father Mother Social History Tobacco Use Types Packs/Day Years Used Date Smoking Tobacco: Never Smokeless Tobacco: Never Comments Unknown Sex and Gender Information Value Date Recorded Sex Assigned at Not on file Legal Sex Female 9:11 AM HISTORICAL MANUSCRIPTS CURATOR Gender Identity Not on file Sexual Orientation Not on file Obstetrics History Last Filed Vital Signs Vital Sign Reading Time Taken Comments Blood Pressure 139/84 06/20/2025 1:29 PM CDT Pulse 78 06/20/2025 1:29 PM CDT Temperature - - Respiratory Rate - - Oxygen Saturation 97% 06/20/2025 1:29 PM CDT Inhaled Oxygen Concentration - - Weight 101.9 kg (224 lb 11.2 oz) 06/20/2025 1:29 PM CDT Height 157.5 cm (5' 2) 06/20/2025 1:29 PM CDT Body Mass Index 41.1 06/20/2025 1:29 PM CDT Plan of Treatment Health Maintenance Due Date Last Done Comments Albumin Creatinine Ratio, Urine 1954 Breast Cancer Screening-Mammogram 1954 Colon Cancer Screening-Colonoscopy 1954 Depression Screening 1954 Fall Risk Assessment 1954 Hepatitis C Screening 1954 Osteoporosis Screening-Bone Density Scan 1954 eGFR 1954 Foot Exam 1954 Hepatitis B Screening 1972 DTaP/Tdap/Td Vaccine (1 - Tdap) 03/03/2002 2 Pneumococcal vaccine 65+ (2 of 2 - PPSV23, PCV20, or PCV21) 04/27/2002 03/02/2002 Zoster Vaccine (1 of 2) 2004 Well Visit 65+ 2019 Dilated Eye Exam 04/06/2025 04/06/2024, , 04/10/2022, Additional history exists Influenza Vaccine (#1) 2025 , 06/08/2021, 07/25/2003 Hemoglobin A1C 09/11/2025 03/11/2025 Lipid Panel 06/20/2026 06/20/2025 Procedures Procedure Name Priority Date/Time Associated Diagnosis Comments ELECTROCARDIOGRAM REPORT Routine 025 3:20 PM CDT Hypertension associated with diabetes (HCC) POCT LIPID PANEL Routine 06/20/2025 1:18 PM CDT Hyperlipidemia associated with type 2 diabetes mellitus (HCC) from Last 3 Months Results * Electrocardiogram Report (06/20/2025 3:20 PM CDT) us Justin Perea MD ECG ORDERABLES Roma l Result * (ABNORMAL) POCT lipid panel (06/20/2025 1:18 PM CDT) Cholesterol, POC 216 <200 MG/DL HDL, POC 70 >=40 mg/dL Triglycerides, POC 245(A) <=149 mg/dL LDL Cholesterol POC 97 <=129 mg/dL Chol/HDL Ratio, POC 1.4 NONE Non-HDL Cholesterol, POC 146 NONE mg/dL Cholesterol Total, POC 216(A) 30 - 199 mg/dL Capillary blood 06/20/2025 1 :18 PM CDT us Justin Perea MD POINT OF CARE TEST O RDERABLES Final Result from Last 3 Months Insurance GENERIC COPAY ASSIST CIG[employer] MEDICARE SUPPLEMENT INSURANCE MEDICARE [facility] OPEN ACCESS [facility] HMO/PPO Address: [facility] [id number] [place] [address] [facility] MEDICARE SUPPLEMENT INSURANCE MEDICARE Care Teams Card Feeder Relationship Specialty Start Date End Date Susan Chaudhry NP [address] [place] [address] [place] [address] PCP - General Nurse Practitioner 06/20/25
--- OUTSIDE RECORDS SUMMARY | 2025-07-07 14:21 | XMS_ITS | Encounter Summary ---
Author Organization [facility] Healthcare Address [address] [place] [address] Care Team Providers Care Automobile Radiator Mechanic Name Role Phone Susan Chaudhry NP Primary Care Provider + [phone] Encounter Details Date Type Department Care Team (Late st Contact Info) Description 07/01/2025 Telephone [facility] Cardiology [address] [place] [address] Justin Perea MD [address] [place] [address] Social History Tobacco Use Types Packs/Day Years Used Date Smoking Tobacco: Never Smokeless Tobacco: Never Comments Unknown Sex and Gender Information Value Date Recorded Sex Assigned at Not on file Legal Sex Female 9:11 AM NIGHT MONITOR Gender Identity Not on file Sexual Orientation Not on file documented as of this encounter Miscellaneous Notes * Telephone Encounter - Lynn Hernandez MA - 07/04/2025 12:24 PM CDT Sent * Telephone Encounter - Justin Perea MD - 07/03/2025 8:05 PM CDT Go ahead and refill. Thank you * Telephone Encounter - Lynn Hernandez MA - 07/01/2025 3:[address] Perea, When you saw pt you prescribed a 2 wk supply and pt had an upcoming appt with nephrology then you were going to decide to keep Minoxidil or not. Please advise? Thank you * Telephone Encounter - Mercedes Lancaster - 07/01/2025 1:50 PM CDT Patient requesting refill for minoxidiL (LONITEN) 2.5 mg tablet with 60 day supply. Please send to [facility]. Thank you. Contact : [phone] documented in this encounter Plan of Treatment Not on file documented as of this encounter Visit Diagnoses Not on filedocumented in this encounter Care Teams Automobile Radiator Mechanic Relationship Specialty Start Date End Date Susan Chaudhry NP [address] [facility] [address] [place] [address] [place] [address] PCP - General Nurse Practitioner 06/20/25 documented as of this encounter
[2025-07-07 19:04] LABS: Hematocrit 27.2 % (37.0-47.0); Hemoglobin 8.5 g/dL (12.0-15.0); Mean Corpuscular HGB Conc 31.3 g/dl (32-36); Mean Corpuscular Hemoglobin 32.6 pg (26-34); Mean Corpuscular Volume 104.2 fl (80-100); Platelet Count Result 279 k/mm3 (150-375); Red Blood Count 2.61 M/mm3 (4.2-5.4); White Blood Count 8.9 K/mm3 (4.5-10.0)
[2025-07-07 19:11] LABS: Albumin Level 3.3 g/dL (3.5-5.1); Anion Gap 8 mmol/L (4-12); Blood Urea Nitrogen 39 mg/dL (7-17); Calcium 8.6 mg/dL (8.4-10.2); Carbon Dioxide 21 mmol/L (22-30); Chloride 106 mmol/L (98-107); Estimated Glomerular Filt Rate 12; Glucose 150 mg/dL (65-110); Potassium 4.8 mmol/L (3.4-5.0); Sodium 135 mmol/L (137-145)
[2025-07-07 19:21] LABS: Parathyroid Intact 288.5 pg/mL (14.5-75.2)
[2025-07-07 21:55] LABS: Total Protein Urine Random > 600 mg/dL; Ur Ttl Prot Creatinine Ratio > 18.18 mg/mg (0-0.20)
== END 2025-07-07 13:48 | disposition home or self-care (01) ==
LOC: ANHGOSHLAB 13:50
PROVIDERS: PCP Nurse Practitioner; Visit Provider Internal Medicine Nephrology
DX: I12.9 Hypertensive chronic kidney disease with stage 1 through stage 4 chronic kidney disease, or unspecified chronic kidney disease (principal); N18.4 Chronic kidney disease, stage 4 (severe); E55.9 Vitamin D deficiency, unspecified
CPT/HCPCS: 36415; 80069; 82306; 82570; 83970; 84156; 85027